=== PATIENT | male | born 1975 | race Caucasian/White ===

== ENCOUNTER 2020-07-18 15:03 | Inpatient (IN) | payer OTHER, MEDICAID, SELFPAY ==
--- NOTE | ~2020-07-18 | XR_ITS ---
EXAMINATION: XR FOOT, LEFT CLINICAL INFORMATION: Trauma. COMPARISON: None TECHNIQUE: AP, lateral, and oblique views of the left foot. FINDINGS: Bone alignment is normal. No fracture or dislocation is seen. There may be mild hallux valgus deformity at the first MTP joint and small osteophytes. There are small osteophytes seen at the navicular cuneiform joint on the lateral view. The joint spaces are otherwise normal. There are calcaneal spurs. XR/XR foot LT 2V IMPRESSION: No fracture seen. Calcaneal spurs and mild degenerative changes.
--- NOTE | ~2020-07-18 | US_ITS ---
EXAMINATION: US RETROPERITONEAL LIMITED (RENAL ONLY) CLINICAL INFORMATION: Renal insufficiency, assess for medical renal disease versus obstruction. COMPARISON: None TECHNIQUE: Ultrasound of the kidneys is performed. Grayscale imaging and color Doppler are performed. Dinkey Dispatcher notes technically challenging exam. Study tailored to ability of patient to cooperate. FINDINGS: RIGHT KIDNEY: 10.0 x 4.4 x 4.8 cm (SAG x AP x TRV). There is no hydronephrosis or caliectasis. No visible renal sinus calculi. Renal parenchymal thickness is normal. There is no renal parenchymal mass. Renal parenchymal echogenicity is within normal. LEFT KIDNEY: 10.7 x 5.8 x 5.3 cm (SAG x AP x TRV). There is no hydronephrosis or caliectasis. Renal parenchymal thickness is likely within normal. There is lobation. The parenchymal echogenicity appears increased and there is a nonobstructing specular echo interpolar region 0.8 cm and a cyst lower pole measuring 1.1 cm. US/US renal BI IMPRESSION: 1. Patient study limitations. No hydronephrosis or caliectasis. 2. Probable increased renal parenchymal density on left. Nonobstructing calculus left interpolar 0.8 cm.
--- NOTE | 2020-07-18 15:47 | HO.PSYADMNOT ---
HPI Chief Complaint: joleen Sources of Information: patient interviewed, chart reviewed and crisis/core team assessment reviewed HPI Subjective Notes: Section 12B Narrative: The patient is a 45 year old male referred from [facility] in [place]; the patient on admission was grossly disorganized, unable to provide details but as per crisis report and ED report, he carries the diagnosis of Bipolar Disorder. He was brought by his brother due to exacerbation of manic symptoms elicited by increased energy, elated mood, increased irritability, pressured speech and no need of sleep. While he was in the ED, he needed to be chemilcally restrained twice in 12 hours with Droperidol and other medications. During the intake interview, the patient stated that he needed to go back with his family, he showed psychomotor agitation and illogical thought process. 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 It was described that the main precipitant was the departure of the patient's father to [place]. He was unable to sign himself so Section 12 was filled. He was put initially on constant observation. 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 Substance History: Unknown. Trauma History: Unknown. Diagnostics EKG EKG: reviewed EKG Comment: From [facility] Meds/Allergies Meds Home Medications Acetaminophen (Acetaminophen 325 Mg Tablet) 650 mg PO Q6H PRN PRN Reason: Headache/Pain Mild Scale (1-3) Al Hydroxide/Mg Hydroxide (Magnesium Hydrox/Alum Hydrox 30 Ml Oral.Susp) 30 ml PO Q6H PRN PRN Reason: Heartburn/Nausea Hydroxyzine HCl (Hydroxyzine Hcl 25 Mg Tablet) 25 mg PO BEDTIME PRN PRN Reason: Anxiety Lorazepam (Lorazepam 1 Mg Tablet) 1 mg PO Q6H PRN PRN Reason: Anxiety Magnesium Hydroxide (Milk Of Magnesia 30 Ml Oral.Susp) 30 ml PO DAILY PRN PRN Reason: Constipation Olanzapine (Olanzapine 10 Mg Tablet) 10 mg PO QID PRN PRN Reason: Psychosis Trazodone HCl (Trazodone Hcl 50 Mg Tablet) 50 mg PO BEDTIME PRN PRN Reason: Insomnia Allergies Allergies Allergy/AdvReac Type Severity Reaction Status Date / Time Unable to Assess Allergy Unverified 07/18/20 15:30 Mental Status Exam Mental Status Exam Patient Appearance: Disheveled (on hospital gowns), Inappropriate and Unkempt Level of Consciousness: Awake, Disoriented and Inappropriate Patient Behavior: Suspicious, Aggressive, Restless, Belligerent and Impulsive Mood Description: Euphoric and Hostile Affect Description: Euphoric and Hostile Patient Cognition Impaired: No Ability to Follow Directions: Poor Speech Pattern: Slurred Hallucinations: None Delusions: Grandiose Thought Process: Incoherent Thought Content: positive for Loose Associations and positive for Thought Blocking Abnormal Motor Activity Signs and Symptoms: Agitation Judgement: Poor Assessment & Plan Assessment & Plan (1) Bipolar 1 disorder, mixed, severe: Status: Acute Code(s): F31.63 - Bipolar disorder, current episode mixed, severe, without psychotic features Assessment and Plan: 1. Admit to M5. 2. Constant observation. 3. Start PRN medications with Zyprexa and Ativan PRN. 4. As per med rec, he is allergic to Abilify but he had Abilify 20 mg prescribed as a mood stabilizer. 5. Get more collateral information. Informed Consent: does not understand (due to joleen and psychosis) Reason for continued inpatient stay Substantial Risk for: harm to self, harm to others, inability to function and rapid decompensation
[2020-07-18] MEDS: OLANZapine ODT 10 MG TAB.RAPDIS TRANSLINGU (16:36)
[2020-07-18] MEDS: LORazepam 1 MG TABLET PO (17:34)
[2020-07-18 18:00] VITALS: BP 129/77; PULSE 101; RESP 18; TEMP 36.2; O2SAT 99
[2020-07-18 18:22] VITALS: BMI 30.2
--- NOTE | 2020-07-18 18:47 | PC.ADMIT ---
45 year old male DX: BiPolar disorder unspecified. Arrived to unit approx 1530, section 12b. Patient referred for admission by Devika. Patient was brought to [facility] ED by his brother due to joleen. Patient declined/refused to sign any paperwork at this time. Patient is disorganized, scattered, tangential with loose associations, speaks in riddles, is difficult to redirect or interrupt. Speech is rapid and pressured. Information has been obtained primarily from crisis evaluation. Patient is A+O x3, person, place, and time. Clean and neat. His brother reports he has not taken bipolar medications for 3 days. Patient has been cleaning in excess and not sleeping. Allergy to Haldol. Medical problems include HTN. Abrasions on R hand, refusing care at this time. CT scan completed at [facility] unremarkable. Tox screen negative. No reported drug or alcohol use. Precipitant related to father letting him know he is moving to [place]. placed on 5 minute checks. See crisis eval for further details, see nursing assessment. Accepted Olanzapine 10 mg Ativan 1mg PO with + effects.
[2020-07-19] MEDS: OLANZapine ODT 10 MG TAB.RAPDIS TRANSLINGU ×3 (02:19→20:57)
[2020-07-19] MEDS: LORazepam 1 MG TABLET PO ×4 (02:19→20:56)
--- NOTE | 2020-07-19 03:19 | PC.NURSE ---
At 0315, Duarte removed his contact lenses and placed them in a blue denture cup with normal saline.
[2020-07-19 03:50] VITALS: BP 124/83; PULSE 92; RESP 16; TEMP 36.4; O2SAT 100
[2020-07-19 07:00] VITALS: BMI 30.2
--- NOTE | 2020-07-19 09:57 | HO.PSYCHPN ---
Subjective Subjective Date of Service: 07/19/20 Reason For Visit: joleen Subjective Notes: Section 12B Interim History: The patient remains grossly manic and disorganized, He neede Zyprexa 10 mg and Ativan PO at night due to increased agitation, some improvement with Zydis 10 mg but still manic. During the interview, he was less irritable but sitll oppositional, intrussive and with flight of ideas. He stated that Abilify 20 mg used to help him. He agreed to re-start Abilify today. Medication Compliance: Intermittent Side effects from medications: No Attending Groups: No Review of Systems Review of Systems Yes all other systems are reviewed and are negative Mental Status Exam Mental Status Exam Patient Appearance: Well Grooomed Patient Orientation: Person and Place Level of Consciousness: Awake and Inappropriate Patient Behavior: Talkative, Hyperactive, Belligerent and Impulsive Mood Description: Euphoric and Labile Affect Description: Hostile and Elated Patient Cognition Impaired: No Ability to Follow Directions: Poor Speech Pattern: Rapid and Inappropriate Memory Description: Remote Impaired Hallucinations: None Delusions: Paranoid Ideation and Grandiose Thought Process: Incoherent and Illogical Thought Content: positive for Loose Associations Abnormal Motor Activity Signs and Symptoms: Agitation Judgement: Poor Diagnostics Vital Signs (24Hr): Vital Signs - 24 hr 07/18/20 18:00 07/19/20 03:50 Temperature 97.2 F 97.5 F Pulse Rate 101 H 92 Respiratory Rate 18 16 Blood Pressure 129/77 124/83 Pulse Oximetry 99 100 Body Mass Index 30.2 Medications Medications Current Medications Generic Name Dose Route Start Last Admin Trade Name Freq PRN Reason Stop Dose Admin Acetaminophen 650 mg 07/18/20 15:30 Acetaminophen 325 Mg Tablet PO Q6H PRN Headache/Pain Mild Scale (1-3) Al Hydroxide/Mg Hydroxide 30 ml 07/18/20 15:30 Magnesium Hydrox/Alum Hydrox 30 Ml Oral.Susp PO Q6H PRN Heartburn/Nausea Hydroxyzine HCl 25 mg 07/18/20 15:30 Hydroxyzine Hcl 25 Mg Tablet PO BEDTIME PRN Anxiety Lorazepam 1 mg 07/18/20 15:33 07/19/20 02:19 Lorazepam 1 Mg Tablet PO 1 mg Q6H PRN Administration Anxiety Magnesium Hydroxide 30 ml 07/18/20 15:30 Milk Of Magnesia 30 Ml Oral.Susp PO DAILY PRN Constipation Olanzapine 10 mg 07/18/20 16:24 07/19/20 02:19 Olanzapine Odt 10 Mg Tab.Rapdis TRANSLINGU 10 mg QID PRN Administration Psychosis Trazodone HCl 50 mg 07/18/20 15:30 Trazodone Hcl 50 Mg Tablet PO BEDTIME PRN Insomnia Allergies Allergies Allergy/AdvReac Type Severity Reaction Status Date / Time Unable to Assess Allergy Unverified 07/18/20 15:30 Assessment & Plan Assessment & Plan (1) Bipolar 1 disorder, mixed, severe: Status: Acute Code(s): F31.63 - Bipolar disorder, current episode mixed, severe, without psychotic features Assessment and Plan: 1. Keep PRN medications as it is now. 2. Start Abilify 10 mg po daily now. 3. Get more collateral. Greater than 50% of the session was spent on counseling and/or coordination of care Reason for contiued inpatient stay Substantial Risk for: harm to self, harm to others, inability to function and rapid decompensation
[2020-07-19] MEDS: ARIPiprazole 10 MG TABLET PO (12:04)
[2020-07-19] MEDS: traZODone HCL 50 MG TABLET PO (20:57)
[2020-07-20] MEDS: traZODone HCL 50 MG TABLET PO (00:01)
[2020-07-20] MEDS: hydrOXYzine HCL 25 MG TABLET PO (00:01)
[2020-07-20] MEDS: OLANZapine ODT 10 MG TAB.RAPDIS TRANSLINGU ×5 (00:45→21:36)
[2020-07-20] MEDS: LORazepam 1 MG TABLET PO ×2 (02:30→07:11)
[2020-07-20] MEDS: OLANZapine 10 MG VIAL IM ×2 (03:11→07:25)
[2020-07-20] MEDS: LORazepam 2 MG/ML VIAL 1 MG IM (03:11)
[2020-07-20] MEDS: diphenhydrAMINE HCL 50 MG/ML VIAL IM (03:11)
--- NOTE | 2020-07-20 04:26 | PC.NURSE ---
At start of shift pt presented as hyperverbal, manic, delusional (father is dying), and engaged in word clanging. Pt refused to leave the nursing station and refused to remain in his room. Received Trazodone 50 mg and Atarax 25 mg at 00:10. While t/w was leaving the medication room the pt attempted to remove the trash can. He then refused to let go and security was called. Pt compliant with security's request to let go of the trash can. Pt continued to be intrusive, attempting to enter the nursing station and invading personal space of staff. Pt redirected to kitchen where he benefitted from staff interaction and ate a snack. Pt continued to pace the hallway and was hyperverbal. Pt received PRN Zyprexa 10 mg PO with no positive effect at 0100. At 0220 pt ran down maynard and attempted to pull fire alarm and began kicking the door. Pt received PO Ativan 1 mg at 0230 but continued to escalate. Pt stated I pulled the alarm so I didn't kick you guys (staff) in the face. Pt began slamming phones after having conversations on the highway safety engineer (phones were off). He engaged in destruction of property in the kitchen while making illogical statements. Pt ignored verbal redirection. Security was again called and pt complied by returning to his room. Once in his room punched araujo and attempted to hit the camera. yacht master provider Dr. Colbert was called and Ativan 1 mg IM, Benadryl 50 mg IM, and Zyprexa 10 mg IM was ordered for agitation and anxiety. Dr. Colbert informed t/w that if patient is willing to receive IM then notto administer as a medication restraint. Pt educated on purpose of IM medication, to treat agitation and anxiety where PO medication had been ineffective, and pt consented to receive IM medication at 0300. IM assessed to have positive effect as evidenced by sitting calmly. Pt continued to present as delusional and hyperverbal. Pt resting in bed with lights off at 0345 but remained restless in bed throughout shift.
[2020-07-20 06:00] VITALS: BP 162/87; PULSE 101; TEMP 36.2
[2020-07-20] MEDS: LORazepam 2 MG/ML VIAL IM (07:25)
--- NOTE | 2020-07-20 09:52 | PC.NURSE ---
patient is not a smoker. does not need nicotine replacement.
--- NOTE | 2020-07-20 10:20 | PC.NURSE ---
AROUND 0700, PT BEGAN TO YELL IN THE HALLWAY AND THROW HIS BLANKETS ON THE FLOOR. PT RAN DOWN THE HALLWAY AND THREW HIS BEVERAGE AT THE RN WHO WAS ENTERING REPORT. SECURITY WAS CALLED. 3 RNS AND CHRISTIANO DIANE ATTEMPTED TO GET THE PT INTO A QUIET ROOM. THE PT WAS YELLING AT STAFF, STATING DO YOU WANT ME TO HIT YOU? PT BEGAN SPEAKING IN A NONSENSICAL MANNER. PT WAS BROUGHT INTO A QUIET ROOM. HE WAS GIVEN PO MEDICATIONS AROUND 0715. THE PT CONTINUED TO YELL AND VERBALLY THREATEN STAFF MEMBERS. SECURITY AND STAFF TRIED TO CALM HIM DOWN. PT CONTINUED TO AMP UP, THROWING HIS GLASSES ON THE FLOOR AND STOMPING ON THEM. PT STATED THAT HE DID NOT WANT TO HAVE TO KILL SOMEONE BECAUSE HE DOESNT LIKE TO BUT WILL . PT WAS GIVEN A MEDICATION RESTRAINT AT 0725. PT WENT INTO HIS ROOM, JUMPING ON THE BED LIKE A MONKEY. APPROXIMATELY 10 MINUTES LATER, PT FELL ASLEEP. PT ALLOWED 2 SETS OF VITAL SIGNS WHICH WERE STABLE.
--- NOTE | 2020-07-20 10:33 | HO.PSYCHPN ---
Subjective Subjective Date of Service: 07/20/20 Reason For Visit: joleen Subjective Notes: Section 12B (We will file for Section 7 and 8) Interim History: The patient has been agitated and he was kicking doors today at 7 amm and before during the night. He needed IM twice and currently he is sleeping. SW reported that her family was contacted, apparently, he responded before to ECT, he is allergic to Haldol and he was before on Abilify with good response. Today, after been chemically restrained, it seems that he broke his foot since he was kicking doors. X-Ray was orderec. Medication Compliance: Intermittent Side effects from medications: No Attending Groups: No Review of Systems Review of Systems Yes Unobtainable due to mental status Mental Status Exam Mental Status Exam Narrative: Unable to fully assess, currently he is sedated sleeping after been chemically restrained due to agitation Diagnostics Vital Signs (24Hr): Vital Signs - 24 hr 07/20/20 06:00 Temperature 97.2 F Pulse Rate 101 H Blood Pressure 162/87 H Body Mass Index 30.2 Medications Medications Current Medications Generic Name Dose Route Start Last Admin Trade Name Freq PRN Reason Stop Dose Admin Acetaminophen 650 mg 07/18/20 15:30 Acetaminophen 325 Mg Tablet PO Q6H PRN Headache/Pain Mild Scale (1-3) Al Hydroxide/Mg Hydroxide 30 ml 07/18/20 15:30 Magnesium Hydrox/Alum Hydrox 30 Ml Oral.Susp PO Q6H PRN Heartburn/Nausea Aripiprazole 15 mg 07/21/20 09:00 Aripiprazole 15 Mg Tablet PO DAILY CONRAD Hydroxyzine HCl 25 mg 07/18/20 15:30 07/20/20 00:01 Hydroxyzine Hcl 25 Mg Tablet PO 25 mg BEDTIME PRN Administration Anxiety Lorazepam 1 mg 07/18/20 15:33 07/20/20 07:11 Lorazepam 1 Mg Tablet PO 1 mg Q6H PRN Administration Anxiety Magnesium Hydroxide 30 ml 07/18/20 15:30 Milk Of Magnesia 30 Ml Oral.Susp PO DAILY PRN Constipation Olanzapine 10 mg 07/18/20 16:24 07/20/20 07:11 Olanzapine Odt 10 Mg Tab.Rapdis TRANSLINGU 10 mg QID PRN Administration Psychosis Trazodone HCl 50 mg 07/18/20 15:30 07/20/20 00:01 Trazodone Hcl 50 Mg Tablet PO 50 mg BEDTIME PRN Administration Insomnia Allergies Allergies Allergy/AdvReac Type Severity Reaction Status Date / Time Unable to Assess Allergy Unverified 07/18/20 15:30 Assessment & Plan Assessment & Plan (1) Bipolar 1 disorder, mixed, severe: Status: Acute Code(s): F31.63 - Bipolar disorder, current episode mixed, severe, without psychotic features Assessment and Plan: 1. Increase Abilify up to 15 mg 2. Get more collateral. 3. Start 7 and 8. I will ask for ECT. Greater than 50% of the session was spent on counseling and/or coordination of care Reason for contiued inpatient stay Substantial Risk for: harm to self, harm to others, inability to function and rapid decompensation
[2020-07-20 18:00] VITALS: BP 134/85; PULSE 87; TEMP 36.6
[2020-07-20] MEDS: traZODone HCL 50 MG TABLET 150 MG PO (21:36)
[2020-07-20] MEDS: chlorproMAZINE HCl 25 MG TABLET 50 MG PO (23:07)
[2020-07-21] MEDS: LORazepam 1 MG TABLET 2 MG PO (00:09)
[2020-07-21] MEDS: chlorproMAZINE HCl 100 MG TABLET PO ×5 (01:33→20:52)
[2020-07-21] MEDS: OLANZapine ODT 10 MG TAB.RAPDIS TRANSLINGU ×4 (09:45→20:52)
[2020-07-21] MEDS: ARIPiprazole 15 MG TABLET PO (09:46)
[2020-07-21] MEDS: LORazepam 1 MG TABLET PO (09:46)
[2020-07-21] MEDS: LORazepam 2 MG/ML VIAL IM (17:58)
[2020-07-21 18:00] VITALS: BP 128/85; PULSE 127; TEMP 37.3
[2020-07-21 18:30] VITALS: BP 160/87; PULSE 103; TEMP 37
[2020-07-21 18:33] VITALS: BP 135/73; PULSE 101; TEMP 37.4
--- NOTE | 2020-07-21 18:44 | P.PNPSI_ITS ---
Subjective Subjective Date of Service: 07/21/20 Reason For Visit: joleen Subjective Notes: Cruz Warning Interim History: Duarte continues to be very challenging. He is hyperverbal, intrusive, disrobes, takes things off the araujo and is in need of constant re-direction. He has been receiving high doses of olanzapine,and chlorpromazine in addition, on top of abilify to which he has responded in the past. Despite this he has not settled very much. In the evening he was tearing things off the araujo, and could not be re- directed. He was increasingly agitated and because of the risk of harm to himself or others, as well as the property destruction, he was in need of a medication restraint. Ativan 2mg was given. Medication Compliance: Intermittent Side effects from medications: No Attending Groups: No Review of Systems Acute medical concerns: No Medical Review of Systems: unchanged Review of Systems Review of Systems Yes all other systems are reviewed and are negative Mental Status Exam Mental Status Exam Patient Appearance: Disheveled Level of Consciousness: Inappropriate and Combative Patient Behavior: Talkative, Hyperactive, Aggressive, Belligerent and Impulsive Mood Description: Elated Affect Description: Labile Ability to Follow Directions: Poor Speech Pattern: Rambling Delusions: Paranoid Ideation and Bizarre Thought Process: Incoherent Thought Content: positive for Flight of Ideas, positive for Perseveration, negative for Suicidal Ideation and negative for Homicidal Ideation Abnormal Motor Activity Signs and Symptoms: Aggression and Agitation Judgement: Poor Diagnostics Vital Signs (24Hr): Vital Signs - 24 hr 07/21/20 18:00 07/21/20 18:30 07/21/20 18:33 Temperature 99.2 F 98.6 F 99.3 F Pulse Rate 127 H 103 H 101 H Blood Pressure 128/85 160/87 H 135/73 Body Mass Index 30.2 Imaging Radiology Impressions: ITS Impressions Foot X-Ray 07/20/20 15:03 IMPRESSION: No fracture seen. Calcaneal spurs and mild degenerative changes. Medications Medications Current Medications Generic Name Dose Route Start Last Admin Trade Name Freq PRN Reason Stop Dose Admin Acetaminophen 650 mg 07/18/20 15:30 Acetaminophen 325 Mg Tablet PO Q6H PRN Headache/Pain Mild Scale (1-3) Al Hydroxide/Mg Hydroxide 30 ml 07/18/20 15:30 Magnesium Hydrox/Alum Hydrox 30 Ml Oral.Susp PO Q6H PRN Heartburn/Nausea Aripiprazole 20 mg 07/22/20 09:00 Aripiprazole 20 Mg Tablet PO DAILY CONRAD Chlorpromazine HCl 100 mg 07/21/20 10:50 07/21/20 16:04 Chlorpromazine Hcl 100 Mg Tablet PO 100 mg RQ4H PRN Administration anxiety/restlessness Hydroxyzine HCl 25 mg 07/18/20 15:30 07/20/20 00:01 Hydroxyzine Hcl 25 Mg Tablet PO 25 mg BEDTIME PRN Administration Anxiety Lorazepam 1 mg 07/21/20 10:47 Lorazepam 1 Mg Tablet PO Q4H PRN Anxiety Magnesium Hydroxide 30 ml 07/18/20 15:30 Milk Of Magnesia 30 Ml Oral.Susp PO DAILY PRN Constipation Olanzapine 10 mg 07/20/20 21:25 07/21/20 16:05 Olanzapine Odt 10 Mg Tab.Rapdis TRANSLINGU 10 mg RQ4H PRN Administration Psychosis Trazodone HCl 150 mg 07/20/20 21:25 07/20/20 21:36 Trazodone Hcl 50 Mg Tablet PO 150 mg BEDTIME PRN Administration Insomnia Allergies Allergies Allergy/AdvReac Type Severity Reaction Status Date / Time Unable to Assess Allergy Unverified 07/18/20 15:30 Assessment & Plan Greater than 50% of the session was spent on counseling and/or coordination of care Individual remains agitated and aggressive. CT treatment plan Ativan 2mg im as a chemical restraint. Patient educated on: diagnosis Informed Consent: does not understand Reason for contiued inpatient stay Substantial Risk for: harm to self, harm to others, inability to function and rapid decompensation
[2020-07-21 18:49] VITALS: BP 142/87; PULSE 102; TEMP 37
[2020-07-21 19:04] VITALS: BP 135/79; PULSE 99; TEMP 37.1
--- NOTE | 2020-07-21 19:10 | PC.NURSE ---
The patient was in his room upon arrival of the change of shift around 14:52. He was on a 1:1 due to manic behavior and self harm. At this time he began to press the alarm in his room repeatedly, banged his fist on the araujo causing there to be a hole in the wall, and slammed his door many times. Pt at one point was visible drinking toilet water, and jumping up and down off his bed. Patient was redirected and began to calm down once security was called. Pt was given 200mg of Thorazine by mouth and 20mg of Zyprexa by mouth which took no effect on the patients behavior. Pt went into his bathroom and started pulling at the toilet paper dang that is connected to the wall and pulled one side out from the wall exposing the nail. Staff continued to intervene and security was up to re-direct him again. Also managed to pull one of the metal restraint clippings out from on the side of the bed. Staff retrieved it from him. Pt was observed running out of his room into another pts room and started throwing there items around.Pt urinated on himself and began to undress himself and threw his urinated pants at staff. Pt was redirected back to his room and security was notified again and were on the unit to assist. Patients nurse was able to get orders from the doctor wildlife control operator Dr. Kaitlynn Colbert at 17:45 for a medication restraint. received 2mg Ativan at 17:58. The hospitalist Dr. Zbigniew Rao was notified via [employer] about the incident and restraint at 17:58. Vitals remained stable. RN fish hatchery supervisor Duran was notified of the event. Dr. Coy was up to see the patient within the hour and was concerned about fungal rashes on legs. Prescribed ointment. Pt was in better behavior control after the medication was administered and sleeping. Will continue to monitor. Vitals initiated at start of restraint and WNL.
[2020-07-21 21:15] VITALS: BP 167/89; PULSE 102; TEMP 37
[2020-07-22] MEDS: hydrOXYzine HCL 25 MG TABLET PO (01:56)
[2020-07-22] MEDS: chlorproMAZINE HCl 100 MG TABLET PO ×4 (01:56→17:25)
[2020-07-22] MEDS: LORazepam 1 MG TABLET 2 MG PO ×3 (01:56→18:20)
[2020-07-22] MEDS: OLANZapine ODT 10 MG TAB.RAPDIS TRANSLINGU ×4 (02:50→17:26)
[2020-07-22] MEDS: traZODone HCL 50 MG TABLET 150 MG PO ×2 (02:50→21:28)
--- NOTE | 2020-07-22 05:20 | PC.NURSE ---
0145: Patient awake presenting with joleen. Slapping wall, pressured speech, disorganized thoughts. Pt received medication at 0200 with little positive effect. 0250: Unable to sleep. restless and agitated. Received medication for sleep and agitation with little positive effect. Pt did slept for very brief periods before thrashing in bed. penal officer and patient observer remained with patient starting at 0200 until end of shift due to aggressiveness and agitation.
[2020-07-22 05:55] VITALS: BP 139/85; PULSE 105; RESP 16; TEMP 36.3
[2020-07-22] MEDS: ARIPiprazole 30 MG TABLET PO (08:10)
[2020-07-22] MEDS: Lithium Carbonate 300 MG CAPSULE PO ×2 (10:30→19:58)
[2020-07-22] MEDS: LORazepam 1 MG TABLET PO ×2 (14:14→19:58)
--- NOTE | 2020-07-22 17:49 | HO.PSYCHPN ---
Subjective Subjective Date of Service: 07/22/20 Reason For Visit: joleen Interim History: Duarte remains agitated, grandiose and bizarre. He is slightly less intrusive today and he is more able to respond to re-direction. He does seem to settle when given ativan. He agreed to the addition of [place] Medication Compliance: Yes Side effects from medications: No Attending Groups: Yes Review of Systems Acute medical concerns: No Medical Review of Systems: unchanged Review of Systems Review of Systems Yes all other systems are reviewed and are negative and Unobtainable due to mental status Mental Status Exam Mental Status Exam Patient Appearance: Disheveled Patient Orientation: Person and Place Level of Consciousness: Inappropriate and Combative Patient Behavior: Talkative, Hyperactive, Aggressive, Belligerent and Impulsive Mood Description: Elated Affect Description: Labile Patient Cognition Impaired: No Ability to Follow Directions: Poor Speech Pattern: Rambling Memory Description: Remote Impaired Hallucinations: None Delusions: Present Thought Process: Incoherent and Illogical Thought Content: positive for Circumstantial, positive for Tangential and positive for Disorganized Abnormal Motor Activity Signs and Symptoms: Aggression Judgement: Poor Diagnostics Vital Signs (24Hr): Vital Signs - 24 hr 07/21/20 18:00 07/21/20 18:30 07/21/20 18:33 Temperature 99.2 F 98.6 F 99.3 F Pulse Rate 127 H 103 H 101 H Respiratory Rate Blood Pressure 128/85 160/87 H 135/73 07/21/20 18:49 07/21/20 19:04 07/21/20 21:15 Temperature 98.6 F 98.7 F 98.6 F Pulse Rate 102 H 99 102 H Respiratory Rate Blood Pressure 142/87 H 135/79 167/89 H 07/22/20 05:55 Temperature 97.3 F Pulse Rate 105 H Respiratory Rate 16 Blood Pressure 139/85 Body Mass Index 30.2 Imaging Radiology Impressions: ITS Impressions Foot X-Ray 07/20/20 15:03 IMPRESSION: No fracture seen. Calcaneal spurs and mild degenerative changes. Medications Medications Current Medications Generic Name Dose Route Start Last Admin Trade Name Freq PRN Reason Stop Dose Admin Acetaminophen 650 mg 07/18/20 15:30 Acetaminophen 325 Mg Tablet PO Q6H PRN Headache/Pain Mild Scale (1-3) Al Hydroxide/Mg Hydroxide 30 ml 07/18/20 15:30 Magnesium Hydrox/Alum Hydrox 30 Ml Oral.Susp PO Q6H PRN Heartburn/Nausea Aripiprazole 30 mg 07/22/20 09:00 07/22/20 08:10 Aripiprazole 30 Mg Tablet PO 30 mg DAILY [facility]RAD Administration Chlorpromazine HCl 100 mg 07/21/20 10:50 07/22/20 17:25 Chlorpromazine Hcl 100 Mg Tablet PO 100 mg RQ4H PRN Administration anxiety/restlessness Clotrimazole 1 appl 07/21/20 21:00 07/22/20 08:10 Clotrimazole 1 % Cream 15 Gm Tube TOPICAL Not Given BID [facility] Protocol Hydroxyzine HCl 25 mg 07/18/20 15:30 07/22/20 01:56 Hydroxyzine Hcl 25 Mg Tablet PO 25 mg BEDTIME PRN Administration Anxiety [place] Carbonate 300 mg 07/22/20 10:25 07/22/20 10:30 [place] Carbonate 300 Mg Capsule PO 300 mg BID CONRAD Administration Lorazepam 2 mg 07/21/20 21:15 07/22/20 06:07 Lorazepam 1 Mg Tablet PO 2 mg Q4H PRN Administration Anxiety Lorazepam 1 mg 07/22/20 15:00 07/22/20 14:14 Lorazepam 1 Mg Tablet PO 1 mg TID CONRAD Administration Magnesium Hydroxide 30 ml 07/18/20 15:30 Milk Of Magnesia 30 Ml Oral.Susp PO DAILY PRN Constipation Olanzapine 10 mg 07/20/20 21:25 07/22/20 17:26 Olanzapine Odt 10 Mg Tab.Rapdis TRANSLINGU 10 mg RQ4H PRN Administration Psychosis Trazodone HCl 150 mg 07/20/20 21:25 07/22/20 02:50 Trazodone Hcl 50 Mg Tablet PO 150 mg BEDTIME PRN Administration Insomnia Allergies Allergies Allergy/AdvReac Type Severity Reaction Status Date / Time haloperidol [From Haldol] Allergy Unknown Verified 07/22/20 03:38 Assessment & Plan Assessment & Plan (1) Bipolar 1 disorder, mixed, severe: Status: Acute Code(s): F31.63 - Bipolar disorder, current episode mixed, severe, without psychotic features Assessment and Plan: 1. Increase Abilify up to 15 mg 2. Add [place] 3. Get more collateral. Greater than 50% of the session was spent on counseling and/or coordination of care Reason for contiued inpatient stay Substantial Risk for: rapid decompensation
[2020-07-22 18:00] VITALS: RESP 18
[2020-07-23] MEDS: hydrOXYzine HCL 25 MG TABLET PO (02:57)
[2020-07-23] MEDS: LORazepam 1 MG TABLET 2 MG PO ×2 (02:57→12:37)
[2020-07-23] MEDS: chlorproMAZINE HCl 100 MG TABLET PO ×3 (02:57→12:37)
[2020-07-23] MEDS: OLANZapine ODT 10 MG TAB.RAPDIS TRANSLINGU ×3 (06:47→14:49)
[2020-07-23] MEDS: ARIPiprazole 30 MG TABLET PO (08:21)
[2020-07-23] MEDS: LORazepam 1 MG TABLET PO ×3 (08:22→21:41)
[2020-07-23] MEDS: Lithium Carbonate 300 MG CAPSULE PO ×2 (08:22→21:41)
--- NOTE | 2020-07-23 09:42 | P.PNPSI_ITS ---
Subjective Subjective Date of Service: 07/23/20 Reason For Visit: joleen Subjective Notes: Section 12B Interim History: The patient has been agitated, disorganized and grossly manic during the week, he needed to be chemically restrained on Thursday and he was started on [place]. Family reported that in the past he was on [place] as a teenager but it was unclear why they stopped. Abilify has been increased up to 30 mg. So far, he remains grossly manic and psychotic on close observation, unable to take informed decisions. We are filing for Section 7 and 8 and we will start ECT. Medication Compliance: Intermittent Side effects from medications: No Attending Groups: No Review of Systems Review of Systems Yes all other systems are reviewed and are negative Mental Status Exam Mental Status Exam Patient Appearance: Disheveled Patient Orientation: Person and Place Level of Consciousness: Drowsy Patient Behavior: Suspicious, Aggressive and Poor Eye Contact Mood Description: Suspicious and Apprehensive Affect Description: Suspicious, Withdrawn and Apprehensive Patient Cognition Impaired: No Ability to Follow Directions: Poor Speech Pattern: Slurred Hallucinations: None Delusions: Paranoid Ideation and Grandiose Thought Process: Incoherent Thought Content: positive for Disoriented Abnormal Motor Activity Signs and Symptoms: Hyperactivity and Restlessness Judgement: Poor Diagnostics Vital Signs (24Hr): Vital Signs - 24 hr 07/22/20 18:00 Respiratory Rate 18 Body Mass Index 30.2 Imaging Radiology Impressions: ITS Impressions Foot X-Ray 07/20/20 15:03 IMPRESSION: No fracture seen. Calcaneal spurs and mild degenerative changes. Medications Medications Current Medications Generic Name Dose Route Start Last Admin Trade Name Freq PRN Reason Stop Dose Admin Acetaminophen 650 mg 07/18/20 15:30 Acetaminophen 325 Mg Tablet PO Q6H PRN Headache/Pain Mild Scale (1-3) Al Hydroxide/Mg Hydroxide 30 ml 07/18/20 15:30 Magnesium Hydrox/Alum Hydrox 30 Ml Oral.Susp PO Q6H PRN Heartburn/Nausea Aripiprazole 30 mg 07/22/20 09:00 07/23/20 08:21 Aripiprazole 30 Mg Tablet PO 30 mg DAILY [facility]RAD Administration Chlorpromazine HCl 100 mg 07/21/20 10:50 07/23/20 08:21 Chlorpromazine Hcl 100 Mg Tablet PO 100 mg RQ4H PRN Administration anxiety/restlessness Clotrimazole 1 appl 07/21/20 21:00 07/23/20 09:05 Clotrimazole 1 % Cream 15 Gm Tube TOPICAL Not Given BID [facility] Protocol Hydroxyzine HCl 25 mg 07/18/20 15:30 07/23/20 02:57 Hydroxyzine Hcl 25 Mg Tablet PO 25 mg BEDTIME PRN Administration Anxiety [place] Carbonate 300 mg 07/22/20 10:25 07/23/20 08:22 [place] Carbonate 300 Mg Capsule PO 300 mg BID CONRAD Administration Lorazepam 2 mg 07/21/20 21:15 07/23/20 02:57 Lorazepam 1 Mg Tablet PO 2 mg Q4H PRN Administration Anxiety Lorazepam 1 mg 07/22/20 15:00 07/23/20 08:22 Lorazepam 1 Mg Tablet PO 1 mg TID CONRAD Administration Magnesium Hydroxide 30 ml 07/18/20 15:30 Milk Of Magnesia 30 Ml Oral.Susp PO DAILY PRN Constipation Olanzapine 10 mg 07/20/20 21:25 07/23/20 06:47 Olanzapine Odt 10 Mg Tab.Rapdis TRANSLINGU 10 mg RQ4H PRN Administration Psychosis Trazodone HCl 150 mg 07/20/20 21:25 07/22/20 21:28 Trazodone Hcl 50 Mg Tablet PO 150 mg BEDTIME PRN Administration Insomnia Allergies Allergies Allergy/AdvReac Type Severity Reaction Status Date / Time haloperidol [From Haldol] Allergy Unknown Verified 07/22/20 03:38 Assessment & Plan Assessment & Plan (1) Bipolar 1 disorder, mixed, severe: Status: Acute Code(s): F31.63 - Bipolar disorder, current episode mixed, severe, without psychotic features Assessment and Plan: 1. Continue with Abilify 30 mg and Ativan. 2. Order bloodwork with TSH, LITH, Comprehensive panel. 3. Continue on close observation. 4. Filing for court. Greater than 50% of the session was spent on counseling and/or coordination of care Reason for contiued inpatient stay Substantial Risk for: harm to self, harm to others and inability to function
[2020-07-23 18:00] VITALS: RESP 18
[2020-07-23] MEDS: traZODone HCL 50 MG TABLET 150 MG PO (21:42)
[2020-07-23 21:58] VITALS: BP 171/87; PULSE 95; TEMP 36.3
[2020-07-23] MEDS: Clotrimazole 1 % Cream 15 GM TUBE 1 APPL TOPICAL (22:24)
[2020-07-24] MEDS: chlorproMAZINE HCl 100 MG TABLET PO ×4 (05:03→18:47)
[2020-07-24] MEDS: LORazepam 1 MG TABLET 2 MG PO ×3 (05:04→18:47)
[2020-07-24 05:40] VITALS: BP 128/86; PULSE 126; RESP 18; TEMP 36.2; O2SAT 97
[2020-07-24] MEDS: ARIPiprazole 30 MG TABLET PO (08:32)
[2020-07-24] MEDS: OLANZapine ODT 10 MG TAB.RAPDIS TRANSLINGU ×3 (08:32→18:47)
[2020-07-24] MEDS: Lithium Carbonate 300 MG CAPSULE PO ×2 (08:32→20:32)
[2020-07-24] MEDS: LORazepam 1 MG TABLET PO (08:32)
[2020-07-24] MEDS: Clotrimazole 1 % Cream 15 GM TUBE 1 APPL TOPICAL ×2 (08:33→20:32)
[2020-07-24 09:07] LABS: Lithium 0.36 mmol/L (0.60-1.20)
[2020-07-24 09:12] LABS: Alanine Aminotransferase 59 U/L (0-40); Albumin Level 4.4 g/dL (3.5-5.0); Alkaline Phosphatase 48 U/L (39-117); Anion Gap 18 (12-20); Aspartate Amino Transferase 45 U/L (5-37); Bilirubin Total 0.9 mg/dL (0.0-1.0); Blood Urea Nitrogen 17 mg/dL (9-16); Calcium 9.3 mg/dL (8.4-10.2); Carbon Dioxide 23 mmol/L (22-29); Chloride 108 mmol/L (96-108); Creatinine Clr Calc Pharmacy 73.9; Estimated Glomerular Filt Rate 46; Glucose Fasting 93 mg/dL (60-99); Sodium 145 mmol/L (135-145); Total Protein 7.3 g/dL (6.5-8.0)
[2020-07-24 09:22] LABS: Thyroid Stimulating Hormone 0.95 uIU/mL (0.32-4.0)
--- NOTE | 2020-07-24 10:52 | HO.PSYCHPN ---
Subjective Subjective Date of Service: 07/24/20 Reason For Visit: joleen Interim History: The patient remains grossly psychotic and disorganized, he was incontinent of urine x2 yesterday. He cut accidentally his finger superficially and there was blood all over his room. He is sexually disinhibeted, disrobbing himself all the time. Needed several PRNs. We will file for SEction 7 and 8, so far we have a hearing on 07/26 but we will try to do it today in an emergency basis. Medication Compliance: Intermittent Side effects from medications: No Attending Groups: No Review of Systems Review of Systems Yes Unobtainable due to mental status Mental Status Exam Mental Status Exam Patient Appearance: Disheveled and Inappropriate Patient Orientation: Person and Place Level of Consciousness: Drowsy and Sedated Patient Behavior: Hypersexual, Aggressive, Restless, Belligerent and Verbal Threats Mood Description: Hostile and Labile Affect Description: Blunted Patient Cognition Impaired: No Ability to Follow Directions: Poor Speech Pattern: Slurred Hallucinations: None Delusions: Grandiose and Ideas of Reference Thought Process: Incoherent and Illogical Thought Content: positive for Flight of Ideas and positive for Neologisms Judgement: Poor Diagnostics Vital Signs (24Hr): Vital Signs - 24 hr 07/23/20 18:00 07/23/20 21:58 07/24/20 05:40 Temperature 97.4 F 97.1 F Pulse Rate 95 126 H Respiratory Rate 18 18 Blood Pressure 171/87 H 128/86 Pulse Oximetry 97 Body Mass Index 30.2 Labs Results: 07/24/20 08:19 Labs: Laboratory Results - last 48 hr 07/24/20 07/24/20 08:19 08:19 Sodium 145 Potassium 4.0 Chloride 108 Carbon Dioxide 23 Anion Gap 18 BUN 17 H Creatinine 1.63 H Estim Creat Clear Calc 73.9 Estimated GFR 46 Fasting Glucose 93 Calcium 9.3 Total Bilirubin 0.9 AST 45 H ALT 59 H Alkaline Phosphatase 48 Total Protein 7.3 Albumin 4.4 TSH 0.95 Tomas De Castro 0.36 L Imaging Radiology Impressions: ITS Impressions Foot X-Ray 07/20/20 15:03 IMPRESSION: No fracture seen. Calcaneal spurs and mild degenerative changes. Medications Medications Current Medications Generic Name Dose Route Start Last Admin Trade Name Freq PRN Reason Stop Dose Admin Acetaminophen 650 mg 07/18/20 15:30 Acetaminophen 325 Mg Tablet PO Q6H PRN Headache/Pain Mild Scale (1-3) Al Hydroxide/Mg Hydroxide 30 ml 07/18/20 15:30 Magnesium Hydrox/Alum Hydrox 30 Ml Oral.Susp PO Q6H PRN Heartburn/Nausea Aripiprazole 30 mg 07/22/20 09:00 07/24/20 08:32 Aripiprazole 30 Mg Tablet PO 30 mg DAILY CONRAD Administration Chlorpromazine HCl 100 mg 07/21/20 10:50 07/24/20 08:32 Chlorpromazine Hcl 100 Mg Tablet PO 100 mg RQ4H PRN Administration anxiety/restlessness Clotrimazole 1 appl 07/21/20 21:00 07/24/20 08:33 Clotrimazole 1 % Cream 15 Gm Tube TOPICAL 1 appl BID CONRAD Administration Protocol Hydroxyzine HCl 25 mg 07/18/20 15:30 07/23/20 02:57 Hydroxyzine Hcl 25 Mg Tablet PO 25 mg BEDTIME PRN Administration Anxiety Tomas De Castro Carbonate 300 mg 07/22/20 10:25 07/24/20 08:32 Tomas De Castro Carbonate 300 Mg Capsule PO 300 mg BID CONRAD Administration Lorazepam 2 mg 07/21/20 21:15 07/24/20 05:04 Lorazepam 1 Mg Tablet PO 2 mg Q4H PRN Administration Anxiety Lorazepam 1 mg 07/22/20 15:00 07/24/20 08:32 Lorazepam 1 Mg Tablet PO 1 mg TID CONRAD Administration Magnesium Hydroxide 30 ml 07/18/20 15:30 Milk Of Magnesia 30 Ml Oral.Susp PO DAILY PRN Constipation Olanzapine 10 mg 07/20/20 21:25 07/24/20 08:32 Olanzapine Odt 10 Mg Tab.Rapdis TRANSLINGU 10 mg RQ4H PRN Administration Psychosis Trazodone HCl 150 mg 07/20/20 21:25 07/23/20 21:42 Trazodone Hcl 50 Mg Tablet PO 150 mg BEDTIME PRN Administration Insomnia Allergies Allergies Allergy/AdvReac Type Severity Reaction Status Date / Time haloperidol [From Haldol] Allergy Unknown Verified 07/22/20 03:38 Assessment & Plan Assessment & Plan (1) Bipolar 1 disorder, mixed, severe: Status: Acute Code(s): F31.63 - Bipolar disorder, current episode mixed, severe, without psychotic features Assessment and Plan: 1. Stop Ativan scheduled since it seems that he is more disinhibited with benzodiazepines. 2. Get new BMP, it showed today slight increase of CR and BUN. 3. Rest the same Greater than 50% of the session was spent on counseling and/or coordination of care Reason for contiued inpatient stay Substantial Risk for: harm to self, harm to others, inability to function, rapid decompensation and med/psych decompensation
[2020-07-24 18:00] VITALS: BP 129/78; PULSE 88; RESP 18; TEMP 36.7; O2SAT 90
[2020-07-24] MEDS: traZODone HCL 50 MG TABLET 150 MG PO (21:18)
[2020-07-24] MEDS: hydrOXYzine HCL 25 MG TABLET PO (21:18)
--- NOTE | 2020-07-25 01:11 | PC.NURSE ---
f/u on medication restraints administered. Pt is disorganized and unable to process events leading to hospitalization and/or medication restraints utilized. Safety tool updated after interactions with patient and documentation review.
[2020-07-25] MEDS: hydrOXYzine HCL 25 MG TABLET PO (03:27)
[2020-07-25] MEDS: LORazepam 1 MG TABLET 2 MG PO ×2 (03:27→15:51)
[2020-07-25] MEDS: chlorproMAZINE HCl 100 MG TABLET PO ×3 (03:27→22:53)
[2020-07-25] MEDS: ARIPiprazole 30 MG TABLET PO (08:10)
[2020-07-25] MEDS: Lithium Carbonate 300 MG CAPSULE PO (08:10)
[2020-07-25] MEDS: OLANZapine ODT 10 MG TAB.RAPDIS TRANSLINGU (08:10)
[2020-07-25 08:48] LABS: Anion Gap 14 (12-20); Blood Urea Nitrogen 15 mg/dL (9-16); Calcium 9.7 mg/dL (8.4-10.2); Carbon Dioxide 27 mmol/L (22-29); Chloride 111 mmol/L (96-108); Creatinine Clr Calc Pharmacy 72.2; Estimated Glomerular Filt Rate 45; Glucose Random 91 mg/dL (60-115); Sodium 148 mmol/L (135-145)
--- NOTE | 2020-07-25 09:51 | P.PNPSI_ITS ---
Subjective Subjective Date of Service: 07/25/20 Reason For Visit: joleen Subjective Notes: Section 7 (applied for 7 and 8) and Section 8 Interim History: The patient has been extremely disorganized, he urinated in the corner of the room, agitated at times and he needed to be chemically restrained again at night. We repeated bloodwork since Cr was high, and again it was high so I discontinued [place] and started on TEgretol. Review of Systems Review of Systems Yes Unobtainable due to mental status Mental Status Exam Mental Status Exam Patient Appearance: Disheveled, Inappropriate and Bizarre Patient Orientation: Person Level of Consciousness: Awake and Disoriented Patient Behavior: Posturing and Restless Mood Description: Hostile and Labile Affect Description: Hostile, Angry and Nervous Patient Cognition Impaired: No Ability to Follow Directions: Poor Speech Pattern: Slurred Delusions: Paranoid Ideation and Grandiose Thought Process: Disoriented and Incoherent Thought Content: positive for Flight of Ideas and positive for Neologisms Abnormal Motor Activity Signs and Symptoms: Aggression, Agitation and Hyperactivity Judgement: Poor Judgement and Insight: Insight poor Diagnostics Vital Signs (24Hr): Vital Signs - 24 hr 07/24/20 18:00 Temperature 98.0 F Pulse Rate 88 Respiratory Rate 18 Blood Pressure 129/78 Pulse Oximetry 90 L Body Mass Index 30.2 Labs Results: 07/25/20 08:11 Labs: Laboratory Results - last 48 hr 07/24/20 07/24/20 07/25/20 08:19 08:19 08:11 Sodium 145 148 H Potassium 4.0 4.0 Chloride 108 111 H Carbon Dioxide 23 27 Anion Gap 18 14 BUN 17 H 15 Creatinine 1.63 H 1.67 H Estim Creat Clear Calc 73.9 72.2 Estimated GFR 46 45 Random Glucose 91 Fasting Glucose 93 Calcium 9.3 9.7 Total Bilirubin 0.9 AST 45 H ALT 59 H Alkaline Phosphatase 48 Total Protein 7.3 Albumin 4.4 TSH 0.95 [place] 0.36 L Imaging Radiology Impressions: ITS Impressions Foot X-Ray 07/20/20 15:03 IMPRESSION: No fracture seen. Calcaneal spurs and mild degenerative changes. Medications Medications Current Medications Generic Name Dose Route Start Last Admin Trade Name Freq PRN Reason Stop Dose Admin Acetaminophen 650 mg 07/18/20 15:30 Acetaminophen 325 Mg Tablet PO Q6H PRN Headache/Pain Mild Scale (1-3) Al Hydroxide/Mg Hydroxide 30 ml 07/18/20 15:30 Magnesium Hydrox/Alum Hydrox 30 Ml Oral.Susp PO Q6H PRN Heartburn/Nausea Aripiprazole 30 mg 07/22/20 09:00 07/25/20 08:10 Aripiprazole 30 Mg Tablet PO 30 mg DAILY CONRAD Administration Carbamazepine 100 mg 07/25/20 15:00 Carbamazepine 100 Mg Tab.Chew PO TID [facility] Chlorpromazine HCl 100 mg 07/21/20 10:50 07/25/20 03:27 Chlorpromazine Hcl 100 Mg Tablet PO 100 mg RQ4H PRN Administration anxiety/restlessness Clotrimazole 1 appl 07/21/20 21:00 07/25/20 08:16 Clotrimazole 1 % Cream 15 Gm Tube TOPICAL Not Given BID [facility] Protocol Hydroxyzine HCl 25 mg 07/18/20 15:30 07/25/20 03:27 Hydroxyzine Hcl 25 Mg Tablet PO 25 mg BEDTIME PRN Administration Anxiety Lorazepam 2 mg 07/21/20 21:15 07/25/20 03:27 Lorazepam 1 Mg Tablet PO 2 mg Q4H PRN Administration Anxiety Magnesium Hydroxide 30 ml 07/18/20 15:30 Milk Of Magnesia 30 Ml Oral.Susp PO DAILY PRN Constipation Olanzapine 10 mg 07/20/20 21:25 07/25/20 08:10 Olanzapine Odt 10 Mg Tab.Rapdis TRANSLINGU 10 mg RQ4H PRN Administration Psychosis Trazodone HCl 150 mg 07/20/20 21:25 07/24/20 21:18 Trazodone Hcl 50 Mg Tablet PO 150 mg BEDTIME PRN Administration Insomnia Allergies Allergies Allergy/AdvReac Type Severity Reaction Status Date / Time haloperidol [From Haldol] Allergy Unknown Verified 07/22/20 03:38 Assessment & Plan Assessment & Plan (1) Bipolar 1 disorder, mixed, severe: Status: Acute Code(s): F31.63 - Bipolar disorder, current episode mixed, severe, without psychotic features Assessment and Plan: 1. D/C [place] 2. Start Tegretol to 100 mg po tid 3. REst the same. 4. Tomorrow we have a hearing court for 7 and 8 Greater than 50% of the session was spent on counseling and/or coordination of care Reason for contiued inpatient stay Substantial Risk for: harm to self, harm to others, inability to function and rapid decompensation
[2020-07-25 11:37] VITALS: BP 123/67; PULSE 130; RESP 16; TEMP 36.6; O2SAT 96
[2020-07-25] MEDS: carBAMazepine 100 MG TAB.CHEW PO ×2 (15:15→22:54)
[2020-07-25] MEDS: traZODone HCL 50 MG TABLET 150 MG PO (22:54)
[2020-07-25] MEDS: Clotrimazole 1 % Cream 15 GM TUBE 1 APPL TOPICAL (23:26)
[2020-07-26] MEDS: LORazepam 1 MG TABLET 2 MG PO ×3 (00:05→18:09)
[2020-07-26] MEDS: hydrOXYzine HCL 25 MG TABLET PO (00:05)
[2020-07-26] MEDS: OLANZapine ODT 10 MG TAB.RAPDIS TRANSLINGU ×3 (02:02→14:15)
[2020-07-26] MEDS: ARIPiprazole 30 MG TABLET PO (08:19)
[2020-07-26] MEDS: carBAMazepine 100 MG TAB.CHEW PO ×2 (08:19→14:15)
[2020-07-26] MEDS: chlorproMAZINE HCl 100 MG TABLET PO ×2 (08:19→14:15)
--- NOTE | 2020-07-26 09:38 | HO.PSYCHPN ---
Subjective Subjective Date of Service: 07/26/20 Reason For Visit: joleen Subjective Notes: Section 7 and Section 8 Interim History: The patient has been grossly disorganized, desinhibit and posturing. He has disrobbed himself. He looks confused, on delirium. He tried to pull out the tiles of the ceiling. Today we have section 7 and 8 scheduled. Review of Systems Review of Systems Yes Unobtainable due to mental status Mental Status Exam Mental Status Exam Patient Appearance: Disheveled Level of Consciousness: Awake and Disoriented Patient Behavior: Posturing Mood Description: Withdrawn and Labile Affect Description: Hostile Patient Cognition Impaired: Yes Ability to Follow Directions: Poor Speech Pattern: Slurred Delusions: Paranoid Ideation and Grandiose Thought Process: Incoherent Thought Content: positive for Tangential Judgement: Poor Diagnostics Vital Signs (24Hr): Vital Signs - 24 hr 07/25/20 11:37 Temperature 97.8 F Pulse Rate 130 H Respiratory Rate 16 Blood Pressure 123/67 Pulse Oximetry 96 Body Mass Index 30.2 Labs Results: 07/25/20 08:11 Labs: Laboratory Results - last 48 hr 07/25/20 08:11 Sodium 148 H Potassium 4.0 Chloride 111 H Carbon Dioxide 27 Anion Gap 14 BUN 15 Creatinine 1.67 H Estim Creat Clear Calc 72.2 Estimated GFR 45 Random Glucose 91 Calcium 9.7 Imaging Radiology Impressions: ITS Impressions Foot X-Ray 07/20/20 15:03 IMPRESSION: No fracture seen. Calcaneal spurs and mild degenerative changes. Medications Medications Current Medications Generic Name Dose Route Start Last Admin Trade Name Freq PRN Reason Stop Dose Admin Acetaminophen 650 mg 07/18/20 15:30 Acetaminophen 325 Mg Tablet PO Q6H PRN Headache/Pain Mild Scale (1-3) Al Hydroxide/Mg Hydroxide 30 ml 07/18/20 15:30 Magnesium Hydrox/Alum Hydrox 30 Ml Oral.Susp PO Q6H PRN Heartburn/Nausea Aripiprazole 30 mg 07/22/20 09:00 07/26/20 08:19 Aripiprazole 30 Mg Tablet PO 30 mg DAILY CONRAD Administration Carbamazepine 100 mg 07/25/20 15:00 07/26/20 08:19 Carbamazepine 100 Mg Tab.Chew PO 100 mg TID CONRAD Administration Chlorpromazine HCl 100 mg 07/21/20 10:50 07/26/20 08:19 Chlorpromazine Hcl 100 Mg Tablet PO 100 mg RQ4H PRN Administration anxiety/restlessness Clotrimazole 1 appl 07/21/20 21:00 07/26/20 09:08 Clotrimazole 1 % Cream 15 Gm Tube TOPICAL Not Given BID [facility] Protocol Hydroxyzine HCl 25 mg 07/18/20 15:30 07/26/20 00:05 Hydroxyzine Hcl 25 Mg Tablet PO 25 mg BEDTIME PRN Administration Anxiety Magnesium Hydroxide 30 ml 07/18/20 15:30 Milk Of Magnesia 30 Ml Oral.Susp PO DAILY PRN Constipation Olanzapine 10 mg 07/20/20 21:25 07/26/20 08:19 Olanzapine Odt 10 Mg Tab.Rapdis TRANSLINGU 10 mg RQ4H PRN Administration Psychosis Trazodone HCl 150 mg 07/20/20 21:25 07/25/20 22:54 Trazodone Hcl 50 Mg Tablet PO 150 mg BEDTIME PRN Administration Insomnia Allergies Allergies Allergy/AdvReac Type Severity Reaction Status Date / Time haloperidol [From Haldol] Allergy Unknown Verified 07/22/20 03:38 Assessment & Plan Assessment & Plan (1) Bipolar 1 disorder, mixed, severe: Status: Acute Code(s): F31.63 - Bipolar disorder, current episode mixed, severe, without psychotic features Assessment and Plan: Continue Abilify 30 mg and Tegretol started yesterday. D/C PRN Ativan Court today. Greater than 50% of the session was spent on counseling and/or coordination of care Reason for contiued inpatient stay Substantial Risk for: harm to self, harm to others, inability to function and rapid decompensation
--- NOTE | 2020-07-26 17:43 | ECG_ITS ---
Test Reason : preop ect Blood Pressure : / mmHG Vent. Rate : 105 BPM Atrial Rate : 105 BPM P-R Int : 142 ms QRS Dur : 088 ms QT Int : 354 ms P-R-T Axes : 057 013 011 degrees QTc Int : 467 ms Sinus tachycardia Possible Left atrial enlargement Borderline ECG No previous ECGs available Referred By: Adis James Electronically Signed By:FEROZ DANIEL
[2020-07-26 19:38] VITALS: BP 131/84; PULSE 120; TEMP 36.8
--- NOTE | 2020-07-26 20:00 | PC.NURSE ---
EKG-patient was administered oral ativan. Ativan allowed patient to be calm enough to tolerate EKG. Hospitalist notified of need for clearance.
--- NOTE | 2020-07-26 22:04 | PM.IMHP ---
History of Present Illness Date of Service: 07/26/20 Chief Complaint: ect clearance This is a 45-year-old male with past medical history of bipolar disorder who is currently admitted to [facility] for psychotic breakdown in the setting of his bipolar disorder. We are asked in consultation to see patient for medical clearance for ECT. Patient is psychotic at this time, pacing back and forth in the room, has behavioral aggression and I was unable to interview him or obtain any history from him. This medical evaluation is based on his past medical history, labs, as well as EKG and other information together from EMR. Patient has had ECT at a different institution in the past with no complications. I am unable to obtain any review of system. Labs from 07/25 show a sodium of 148, chloride of 111, BUN of 15, creatinine of 1.67, AST of 45 ALT of 59. Vitals are significant for a BP of 131/84, and temperature of 98.3? satting 96% on room air PMFSH Social History Household Members: Spouse Household Members Other:: Housing: Unknown / Unable to assess Do you presently have visiting nurse or other home services: No Smoking Status: Unknown if ever smoked Smoked in Last 30 Days: No Patient Interested in Nicotine Replacement: No Patient Given Instructions on How to Stop Smoking: No (N/A) Second Hand Smoke Exposure: No Use of substances other than those prescribed or required for medical reasons: No Substance Use Type Other:: No history of substance use per crisis evaluation Last Used Substance: Unknown Last Used Substance Other:: No substance use reported per crisis evaluation Currently Displaying Signs/Symptoms of Drug Intoxication Withdrawal: No Any prior treatment program specific to substance use: No Have you been hit, kicked, punched, or otherwise hurt by someone within the past year? If so, by whom?: No Do you feel safe in your current relationship?: Yes Is there a partner from a previous relationship who is making you feel unsafe now?: No Are you made to feel afraid or neglected: No Cultural Healthcare Practices: Hoahaoism Advance Directives: No Advance Directives Information Provided: No Advance Directives on File: No Do you have thoughts of harming others: None Do you have a plan to hurt others: No Plan Recently lost weight without trying: No service: No Sexual orientation: Straight/Heterosexual Meds Allergies Allergy/AdvReac Type Severity Reaction Status Date / Time haloperidol [From Haldol] Allergy Unknown Verified 07/22/20 03:38 Active Medications: Current Medications Generic Name Dose Route Start Last Admin Trade Name Freq PRN Reason Stop Dose Admin Acetaminophen 650 mg 07/18/20 15:30 Acetaminophen 325 Mg Tablet PO Q6H PRN Headache/Pain Mild Scale (1-3) Al Hydroxide/Mg Hydroxide 30 ml 07/18/20 15:30 Magnesium Hydrox/Alum Hydrox 30 Ml Oral.Susp PO Q6H PRN Heartburn/Nausea Aripiprazole 30 mg 07/22/20 09:00 07/26/20 08:19 Aripiprazole 30 Mg Tablet PO 30 mg DAILY CONRAD Administration Carbamazepine 100 mg 07/25/20 15:00 07/26/20 19:39 Carbamazepine 100 Mg Tab.Chew PO Not Given TID [facility] Chlorpromazine HCl 100 mg 07/21/20 10:50 07/26/20 14:15 Chlorpromazine Hcl 100 Mg Tablet PO 100 mg RQ4H PRN Administration anxiety/restlessness Clotrimazole 1 appl 07/21/20 21:00 07/26/20 09:08 Clotrimazole 1 % Cream 15 Gm Tube TOPICAL Not Given BID [facility] Protocol Hydroxyzine HCl 25 mg 07/18/20 15:30 07/26/20 00:05 Hydroxyzine Hcl 25 Mg Tablet PO 25 mg BEDTIME PRN Administration Anxiety Lorazepam 2 mg 07/26/20 17:41 07/26/20 18:09 Lorazepam 1 Mg Tablet PO 2 mg Q4H PRN Administration Psychosis/severe agitation Magnesium Hydroxide 30 ml 07/18/20 15:30 Milk Of Magnesia 30 Ml Oral.Susp PO DAILY PRN Constipation Olanzapine 10 mg 07/20/20 21:25 07/26/20 14:15 Olanzapine Odt 10 Mg Tab.Rapdis TRANSLINGU 10 mg RQ4H PRN Administration Psychosis Trazodone HCl 150 mg 07/20/20 21:25 07/25/20 22:54 Trazodone Hcl 50 Mg Tablet PO 150 mg BEDTIME PRN Administration Insomnia Physical Exam Vital Signs and Narrative: Vital Signs: Last Vital Signs Temp 98.3 F 07/26/20 19:38 Pulse 120 H 07/26/20 19:38 Resp 16 07/25/20 11:37 BP 131/84 07/26/20 19:38 Pulse Ox 96 07/25/20 11:37 Body Mass Index 30.2 Results Labs CBC and Chem 7: 07/25/20 08:11
[2020-07-26] MEDS: OLANZapine ODT 10 MG TAB.RAPDIS 20 MG TRANSLINGU (22:12)
[2020-07-27] VITALS (14 sets, daily range): BP systolic 125–154; BP diastolic 75–95; PULSE 82–109; RESP 12–20; TEMP 36.4–37.6; O2SAT 91–98
--- NOTE | 2020-07-27 06:06 | PM.EVENT ---
Event Note Date of Service: 07/27/20 Event Note: Attempted to see patient but patient was unstable, pacing back and forth, unable to get any history from him, unable to conduct physical exam is patient is also showing aggressive behavior. Will attempt in a.m.
[2020-07-27] MEDS: chlorproMAZINE HCl 100 MG TABLET PO ×3 (06:15→23:18)
[2020-07-27] MEDS: OLANZapine ODT 10 MG TAB.RAPDIS TRANSLINGU ×2 (06:15→16:36)
[2020-07-27 08:31] LABS: MANUAL DIFF FLAG NO
[2020-07-27 08:36] LABS: Basophils Percent Auto 0.3 % (0-2); Eosinophils Absolute Auto 0.5 X10*3/uL (0.0-0.4); Eosinophils Percent Auto 8.5 % (0-4); Hematocrit 35.5 % (42-52); Imm Gran Abs Auto 0.02 X10*3/uL (0.00-0.03); Imm Gran Pct Auto 0.3 % (0.0-0.4); Lymphocytes Absolute Auto 1.1 X10*3/uL (1.2-4.9); Lymphocytes Percent Auto 18.4 % (20-40); Mean Corpuscular HGB Conc 33.8 g/dl (31.0-36.0); Mean Corpuscular Hemoglobin 30.7 pg (27.0-33.0); Mean Corpuscular Volume 90.8 fL (80-98); Mean Platelet Volume 9.4 fL (9.4-12.4); Monocytes Absolute Auto 0.6 X10*3/uL (0.1-1.2); Monocytes Percent Auto 10.9 % (2-11); Neutrophils Absolute Auto 3.5 X10*3/uL (2.0-8.3); Neutrophils Percent Auto 61.6 % (45-73); Platelet Count 204 X10*3/uL (160-400); Red Blood Count 3.91 X10*6/uL (4.60-5.80); Red Cell Distribution Width 13.5 % (11.0-16.0); White Blood Count 5.8 X10*3/uL (4.8-10.8)
[2020-07-27 09:19] LABS: Anion Gap 14 (12-20); Blood Urea Nitrogen 21 mg/dL (9-16); Calcium 8.8 mg/dL (8.4-10.2); Carbon Dioxide 26 mmol/L (22-29); Chloride 111 mmol/L (96-108); Creatinine Clr Calc Pharmacy 64.8; Estimated Glomerular Filt Rate 40; Glucose Random 82 mg/dL (60-115); Potassium 3.9 mmol/L (3.3-5.1); Sodium 147 mmol/L (135-145)
--- NOTE | 2020-07-27 09:48 | P.PNPSI_ITS ---
Subjective Subjective Date of Service: 07/27/20 Reason For Visit: joleen Subjective Notes: Section 7 and Section 8 Interim History: The patient remains disorganized with episodic agitation. Yesterday we got Section 7 and [address] to start ECT. Medically cleared by Internal Medicine, on NPO, anesthesia has authorized the add on for today in the afternoon. Medication Compliance: Intermittent Side effects from medications: No Attending Groups: No Review of Systems Review of Systems Yes Unobtainable due to mental status Mental Status Exam Mental Status Exam Patient Appearance: Disheveled and Inappropriate Level of Consciousness: Disoriented and Restless Patient Behavior: Suspicious and Confused Mood Description: Withdrawn and Hostile Affect Description: Labile Patient Cognition Impaired: No Ability to Follow Directions: Poor Speech Pattern: No Speech Thought Process: Disoriented and Incoherent Thought Content: positive for Loose Associations Abnormal Motor Activity Signs and Symptoms: Aggression Judgement: Poor Judgement and Insight: No insight Diagnostics Vital Signs (24Hr): Vital Signs - 24 hr 07/26/20 19:38 Temperature 98.3 F Pulse Rate 120 H Blood Pressure 131/84 Body Mass Index 30.2 Labs Results: 07/27/20 08:24 07/27/20 08:24 Labs: Laboratory Results - last 48 hr 07/27/20 07/27/20 08:24 08:24 WBC 5.8 RBC 3.91 L Hgb 12.0 L Hct 35.5 L MCV 90.8 MCH 30.7 MCHC 33.8 RDW 13.5 Plt Count 204 MPV 9.4 Immature Gran % (Auto) 0.3 Neut % (Auto) 61.6 Lymph % (Auto) 18.4 L [place] % (Auto) 10.9 Eos % (Auto) 8.5 H Baso % (Auto) 0.3 Lymph # (Auto) 1.1 L [place] # (Auto) 0.6 Eos # (Auto) 0.5 H Baso # (Auto) 0.0 Abs Immat Gran (auto) 0.02 Absolute Neuts (auto) 3.5 Absolute Nucleated RBC 0.000 Nucleated RBC % (auto) 0.0 Sodium 147 H Potassium 3.9 Chloride 111 H Carbon Dioxide 26 Anion Gap 14 BUN 21 H Creatinine 1.86 H Estim Creat Clear Calc 64.8 Estimated GFR 40 Random Glucose 82 Calcium 8.8 D Imaging Radiology Impressions: ITS Impressions Foot X-Ray 07/20/20 15:03 IMPRESSION: No fracture seen. Calcaneal spurs and mild degenerative changes. Medications Medications Current Medications Generic Name Dose Route Start Last Admin Trade Name Freq PRN Reason Stop Dose Admin Acetaminophen 650 mg 07/18/20 15:30 Acetaminophen 325 Mg Tablet PO Q6H PRN Headache/Pain Mild Scale (1-3) Al Hydroxide/Mg Hydroxide 30 ml 07/18/20 15:30 Magnesium Hydrox/Alum Hydrox 30 Ml Oral.Susp PO Q6H PRN Heartburn/Nausea Aripiprazole 30 mg 07/22/20 09:00 07/26/20 08:19 Aripiprazole 30 Mg Tablet PO 30 mg DAILY CONRAD Administration Carbamazepine 100 mg 07/25/20 15:00 07/26/20 19:39 Carbamazepine 100 Mg Tab.Chew PO Not Given TID [facility] Chlorpromazine HCl 100 mg 07/21/20 10:50 07/27/20 06:15 Chlorpromazine Hcl 100 Mg Tablet PO 100 mg RQ4H PRN Administration anxiety/restlessness Clotrimazole 1 appl 07/21/20 21:00 07/26/20 22:13 Clotrimazole 1 % Cream 15 Gm Tube TOPICAL Not Given BID [facility] Protocol Hydroxyzine HCl 25 mg 07/18/20 15:30 07/26/20 00:05 Hydroxyzine Hcl 25 Mg Tablet PO 25 mg BEDTIME PRN Administration Anxiety Lorazepam 2 mg 07/26/20 17:41 07/26/20 18:09 Lorazepam 1 Mg Tablet PO 2 mg Q4H PRN Administration Psychosis/severe agitation Magnesium Hydroxide 30 ml 07/18/20 15:30 Milk Of Magnesia 30 Ml Oral.Susp PO DAILY PRN Constipation Olanzapine 10 mg 07/20/20 21:25 07/27/20 06:15 Olanzapine Odt 10 Mg Tab.Rapdis TRANSLINGU 10 mg RQ4H PRN Administration Psychosis Trazodone HCl 150 mg 07/20/20 21:25 07/25/20 22:54 Trazodone Hcl 50 Mg Tablet PO 150 mg BEDTIME PRN Administration Insomnia Allergies Allergies Allergy/AdvReac Type Severity Reaction Status Date / Time haloperidol [From Haldol] Allergy Unknown Verified 07/22/20 03:38 Assessment & Plan Assessment & Plan (1) Bipolar 1 disorder, mixed, severe: Status: Acute Code(s): F31.63 - Bipolar disorder, current episode mixed, severe, without psychotic features Assessment and Plan: We will do first ECT today in the afternoon.. Continue same treatment Greater than 50% of the session was spent on counseling and/or coordination of care Reason for contiued inpatient stay Substantial Risk for: harm to self, harm to others, inability to function, rapid decompensation and med/psych decompensation
--- NOTE | 2020-07-27 12:09 | P.CONAN_ITS ---
[facility] Active Problems Active Problems: All Active Problems (Updated 07/18/20 @ 15:58 by Alexander ott) Bipolar 1 disorder, mixed, severe (Acute) Social History Social History Household Members: Spouse Household Members Other:: Housing: Unknown / Unable to assess Do you presently have visiting nurse or other home services: No Smoking Status: Unknown if ever smoked Smoked in Last 30 Days: No Patient Interested in Nicotine Replacement: No Patient Given Instructions on How to Stop Smoking: No (N/A) Second Hand Smoke Exposure: No Use of substances other than those prescribed or required for medical reasons: No Substance Use Type Other:: No history of substance use per crisis evaluation Last Used Substance: Unknown Last Used Substance Other:: No substance use reported per crisis evaluation Currently Displaying Signs/Symptoms of Drug Intoxication Withdrawal: No Any prior treatment program specific to substance use: No Have you been hit, kicked, punched, or otherwise hurt by someone within the past year? If so, by whom?: No Do you feel safe in your current relationship?: Yes Is there a partner from a previous relationship who is making you feel unsafe now?: No Are you made to feel afraid or neglected: No Cultural Healthcare Practices: Congregation Advance Directives: No Advance Directives Information Provided: No Advance Directives on File: No Do you have thoughts of harming others: None Do you have a plan to hurt others: No Plan Recently lost weight without trying: No service: No Sexual orientation: Straight/Heterosexual Meds Allergies Allergy/AdvReac Type Severity Reaction Status Date / Time haloperidol [From Haldol] Allergy Unknown Verified 07/22/20 03:38 Active Medications: Current Medications Generic Name Dose Route Start Last Admin Trade Name Freq PRN Reason Stop Dose Admin Acetaminophen 650 mg 07/18/20 15:30 Acetaminophen 325 Mg Tablet PO Q6H PRN Headache/Pain Mild Scale (1-3) Al Hydroxide/Mg Hydroxide 30 ml 07/18/20 15:30 Magnesium Hydrox/Alum Hydrox 30 Ml Oral.Susp PO Q6H PRN Heartburn/Nausea Aripiprazole 30 mg 07/22/20 09:00 07/27/20 10:36 Aripiprazole 30 Mg Tablet PO Not Given DAILY [facility]RAD Carbamazepine 100 mg 07/25/20 15:00 07/27/20 10:36 Carbamazepine 100 Mg Tab.Chew PO Not Given TID [facility] Chlorpromazine HCl 100 mg 07/21/20 10:50 07/27/20 06:15 Chlorpromazine Hcl 100 Mg Tablet PO 100 mg RQ4H PRN Administration anxiety/restlessness Clotrimazole 1 appl 07/21/20 21:00 07/27/20 10:36 Clotrimazole 1 % Cream 15 Gm Tube TOPICAL Not Given BID [facility] Protocol Hydroxyzine HCl 25 mg 07/18/20 15:30 07/26/20 00:05 Hydroxyzine Hcl 25 Mg Tablet PO 25 mg BEDTIME PRN Administration Anxiety Lorazepam 2 mg 07/26/20 17:41 07/26/20 18:09 Lorazepam 1 Mg Tablet PO 2 mg Q4H PRN Administration Psychosis/severe agitation Magnesium Hydroxide 30 ml 07/18/20 15:30 Milk Of Magnesia 30 Ml Oral.Susp PO DAILY PRN Constipation Olanzapine 10 mg 07/20/20 21:25 07/27/20 06:15 Olanzapine Odt 10 Mg Tab.Rapdis TRANSLINGU 10 mg RQ4H PRN Administration Psychosis Trazodone HCl 150 mg 07/20/20 21:25 07/25/20 22:54 Trazodone Hcl 50 Mg Tablet PO 150 mg BEDTIME PRN Administration Insomnia Home Medications Medication Instructions Recorded Confirmed Last Taken Type Unobtainable 07/27/20 07/27/20 Unknown History Exam Exam Date and Time: July 27, 2020 1209 Height,Weight and Vital Signs: Height 6 ft 1 in Weight 103.9 kg Last Vital Signs Temp 98.3 F 07/26/20 19:38 Pulse 120 H 07/26/20 19:38 Resp 16 07/25/20 11:37 BP 131/84 07/26/20 19:38 Pulse Ox 96 07/25/20 11:37 Pertinent Lab Results Pertinent Lab Results: Laboratory Tests 07/24/20 07/24/20 07/25/20 08:19 08:19 08:11 WBC RBC Hgb Hct MCV MCH MCHC RDW Plt Count MPV Immature Gran % (Auto) Neut % (Auto) Lymph % (Auto) [place] % (Auto) Eos % (Auto) Baso % (Auto) Lymph # (Auto) [place] # (Auto) Eos # (Auto) Baso # (Auto) Abs Immat Gran (auto) Absolute Neuts (auto) Absolute Nucleated RBC Nucleated RBC % (auto) Sodium 145 148 H Potassium 4.0 4.0 Chloride 108 111 H Carbon Dioxide 23 27 Anion Gap 18 14 BUN 17 H 15 Creatinine 1.63 H 1.67 H Estim Creat Clear Calc 73.9 72.2 Estimated GFR 46 45 Random Glucose 91 Fasting Glucose 93 Calcium 9.3 9.7 Total Bilirubin 0.9 AST 45 H ALT 59 H Alkaline Phosphatase 48 Total Protein 7.3 Albumin 4.4 TSH 0.95 [place] 0.36 L 07/27/20 07/27/20 08:24 08:24 WBC 5.8 RBC 3.91 L Hgb 12.0 L Hct 35.5 L MCV 90.8 MCH 30.7 MCHC 33.8 RDW 13.5 Plt Count 204 MPV 9.4 Immature Gran % (Auto) 0.3 Neut % (Auto) 61.6 Lymph % (Auto) 18.4 L [place] % (Auto) 10.9 Eos % (Auto) 8.5 H Baso % (Auto) 0.3 Lymph # (Auto) 1.1 L [place] # (Auto) 0.6 Eos # (Auto) 0.5 H Baso # (Auto) 0.0 Abs Immat Gran (auto) 0.02 Absolute Neuts (auto) 3.5 Absolute Nucleated RBC 0.000 Nucleated RBC % (auto) 0.0 Sodium 147 H Potassium 3.9 Chloride 111 H Carbon Dioxide 26 Anion Gap 14 BUN 21 H Creatinine 1.86 H Estim Creat Clear Calc 64.8 Estimated GFR 40 Random Glucose 82 Fasting Glucose Calcium 8.8 D Total Bilirubin AST ALT Alkaline Phosphatase Total Protein Albumin TSH [place] Airway Mallampati Class: II TM Dist: >3cm Neck ROM: Full Assessment and Plan Assessment Anesthesia Assessment: Anesthesia Plan Discussed and Chart Reviewed Final Anesthetic Review NPO: Yes ASA Class: II Final Preanesthetic Review: No Changes in Pt Med Stat, Meds/Allgs Chart Reviewed, Consent Obtained/Reviewed and Anes Risks/Benef Reviewed Patient Risk: Low Procedure Risk: Low Assessment/Block/Sedation in SS: Assess/Block/Sedation-SS Anesthetic Plan Anesthetic Plan: GA Disposition: Standard PACU
--- NOTE | 2020-07-27 12:14 | P.HPSUR_ITS ---
Pre-Procedural Eval Section A The patient is an INPATIENT: Yes Changes since office visit: No Cold of Flu in the past 2 weeks, No New Medical Problems, No Changes in Medication and No Patient answered all questions The History & Physical has been completed within 30 days and I have reviewed it.: Yes Section B Chief Complaint: joleen Details of Present Illness: The patient had a manic episode due to non- compliance that evolved to psychosis and later to catatonic-like symptoms, unable to take informed decisions, on Section [address] E[address] treatment Relevant Family History (Specify if Yes): No Relevant Social History: None Present Medications: see Short Stay Collaborative assessment Medical History: No relevant PMH History of Previous Operations: No relevant previous surgery Allergies: Allergies Allergy/AdvReac Type Severity Reaction Status Date / Time haloperidol [From Haldol] Allergy Unknown Verified 07/22/20 03:38 Review of Systems Sugical H&P ROS: Negative: Constitution, Cardiovascular, Respiratory, Neurological, Hem-Onc, Allergic/Immunologic, Gastrointestinal, Genitourinary, Musculoskeletal, Integumentary, Endocrine and Eyes/Ears/Nose/Throat and Yes, Specify: Psychiatric (See HPI) Exam Surgical H&P Exam: Normal: HEENT, Normal: Heart, Normal: Lungs, Normal: Extremi ties, Normal: Abdomen, Normal: Skin and Normal: Neurological Plan Diagnosis/Plan: Unchanged (Court order ECT bifrontal technique) I have reviewed the history and physical and performed a pertinent physical examination on my patient. No changes have occurred unless specified.
[2020-07-27] MEDS: Lactated Ringers 1,000 ML 20 ML IVCONT (12:15)
--- NOTE | 2020-07-27 12:19 | HO.ECTPROC ---
ECT Procedure Note Diagnosis/Treatment Date of Service: 07/27/20 Diagnosis: Bipolar disorder (manic severe with psychosis and catatonic like symptoms) Current Treatment Number: 1 Treatment: Series ([address] remanded) ECT Settings Device: THYMATRON DGx Electrode Placement: Bifrontal Program/Pulse Width: 0.50 Energy Percent: 100 Seizure Duration By EEG (in seconds): 36 Medications Administration General Anesthetic: Etomidate (18) Muscle Relaxant: Succinylcholine (100) Ancillary Medications Miscillaneous Medications: Propofol, Midazolam and Other Airway Management Airway Management: Bag Mask Ventilation Treatment Recommendations No Changes Recommended: No change Electrode Placement: Bifrontal Program/Pulse Width: 0.50 Energy Percent: 100 Pt Tolerated Procedure w/o Issue: Yes
--- NOTE | 2020-07-27 13:58 | PM.IMCN ---
History of Present Illness Data of Consult Service Date: 07/27/20 Primary Care Provider: Aquiles Salgado MD [facility] Reason for consult: Clearance for ECT A 45 years old male who was admitted to the hospital on July 18 with exacerbation of joleen symptoms who has been worsening during the hospital stay requiring treatment with ECT per the psych team. The patient was laying on the floor, eyes closed, moving all his extremities and not answering any of my questions. His EKG was within normal. Review of Systems Review of Systems: Nonverbal PMFSH Social History Household Members: Spouse Household Members Other:: Housing: Unknown / Unable to assess Do you presently have visiting nurse or other home services: No Smoking Status: Unknown if ever smoked Smoked in Last 30 Days: No Patient Interested in Nicotine Replacement: No Patient Given Instructions on How to Stop Smoking: No (N/A) Second Hand Smoke Exposure: No Use of substances other than those prescribed or required for medical reasons: No Substance Use Type Other:: No history of substance use per crisis evaluation Last Used Substance: Unknown Last Used Substance Other:: No substance use reported per crisis evaluation Currently Displaying Signs/Symptoms of Drug Intoxication Withdrawal: No Any prior treatment program specific to substance use: No Have you been hit, kicked, punched, or otherwise hurt by someone within the past year? If so, by whom?: No Do you feel safe in your current relationship?: Yes Is there a partner from a previous relationship who is making you feel unsafe now?: No Are you made to feel afraid or neglected: No Cultural Healthcare Practices: Adventist Advance Directives: No Advance Directives Information Provided: No Advance Directives on File: No Do you have thoughts of harming others: None Do you have a plan to hurt others: No Plan Recently lost weight without trying: No service: No Sexual orientation: Straight/Heterosexual Meds Allergies Allergy/AdvReac Type Severity Reaction Status Date / Time haloperidol [From Haldol] Allergy Unknown Verified 07/22/20 03:38 Active Medications: Current Medications Generic Name Dose Route Start Last Admin Trade Name Freq PRN Reason Stop Dose Admin Acetaminophen 650 mg 07/18/20 15:30 Acetaminophen 325 Mg Tablet PO Q6H PRN Headache/Pain Mild Scale (1-3) Al Hydroxide/Mg Hydroxide 30 ml 07/18/20 15:30 Magnesium Hydrox/Alum Hydrox 30 Ml Oral.Susp PO Q6H PRN Heartburn/Nausea Aripiprazole 30 mg 07/22/20 09:00 07/27/20 10:36 Aripiprazole 30 Mg Tablet PO Not Given DAILY [facility] Carbamazepine 100 mg 07/25/20 15:00 07/27/20 10:36 Carbamazepine 100 Mg Tab.Chew PO Not Given TID [facility] Chlorpromazine HCl 100 mg 07/21/20 10:50 07/27/20 06:15 Chlorpromazine Hcl 100 Mg Tablet PO 100 mg RQ4H PRN Administration anxiety/restlessness Clotrimazole 1 appl 07/21/20 21:00 07/27/20 10:36 Clotrimazole 1 % Cream 15 Gm Tube TOPICAL Not Given BID [facility] Protocol Hydroxyzine HCl 25 mg 07/18/20 15:30 07/26/20 00:05 Hydroxyzine Hcl 25 Mg Tablet PO 25 mg BEDTIME PRN Administration Anxiety Lactated Ringer's 1,000 mls @ 20 mls/hr 07/27/20 12:15 Lr IVCONT .Q24H [facility] Lorazepam 2 mg 07/26/20 17:41 07/26/20 18:09 Lorazepam 1 Mg Tablet PO 2 mg Q4H PRN Administration Psychosis/severe agitation Magnesium Hydroxide 30 ml 07/18/20 15:30 Milk Of Magnesia 30 Ml Oral.Susp PO DAILY PRN Constipation Olanzapine 10 mg 07/20/20 21:25 07/27/20 06:15 Olanzapine Odt 10 Mg Tab.Rapdis TRANSLINGU 10 mg RQ4H PRN Administration Psychosis Trazodone HCl 150 mg 07/20/20 21:25 07/25/20 22:54 Trazodone Hcl 50 Mg Tablet PO 150 mg BEDTIME PRN Administration Insomnia Home Medications Medication Instructions Recorded Confirmed Last Taken Type Unobtainable 07/27/20 07/27/20 Unknown History Physical Exam Vital Signs and Narrative: Vital Signs: Last Vital Signs Temp 97.6 F 07/27/20 12:42 Pulse 90 07/27/20 13:42 Resp 12 07/27/20 13:42 BP 125/75 07/27/20 13:27 Pulse Ox 97 07/27/20 13:42 Body Mass Index 30.2 Const: Other: A Altered, not responsive, laying on the floor, not interactive Skin Warm/Dry, No rash Results Labs CBC and Chem 7: 07/27/20 08:24 07/27/20 08:24 Labs: Laboratory Results - last 24 hr 07/27/20 07/27/20 08:24 08:24 MCV 90.8 MCH 30.7 MCHC 33.8 RDW 13.5 Plt Count 204 MPV 9.4 Immature Gran % (Auto) 0.3 Neut % (Auto) 61.6 Lymph % (Auto) 18.4 L [place] % (Auto) 10.9 Eos % (Auto) 8.5 H Baso % (Auto) 0.3 Lymph # (Auto) 1.1 L [place] # (Auto) 0.6 Eos # (Auto) 0.5 H Baso # (Auto) 0.0 Abs Immat Gran (auto) 0.02 Absolute Neuts (auto) 3.5 Absolute Nucleated RBC 0.000 Nucleated RBC % (auto) 0.0 Anion Gap 14 Estim Creat Clear Calc 64.8 Estimated GFR 40 Random Glucose 82 Calcium 8.8 D Assessment and Plan (1) Bipolar 1 disorder, mixed, severe: Status: Acute A 45 years old male who was admitted to the hospital on July 18 with exacerbation of joleen symptoms who has been worsening during the hospital stay requiring treatment with ECT per the psych team. Preop eval EKG within normal As it seems from discussions with psychiatry team the ECT is the best of to improve this patient current status No medical contraindications to do ECT Hypernatremia Acute kidney injury Secondary to decrease oral intake and dehydration Encourage free water intake To use D5W and repeat BMP Daily Thank you for the consult, will continue to monitor the patient with you
[2020-07-27] MEDS: carBAMazepine 100 MG TAB.CHEW PO ×2 (15:31→20:00)
[2020-07-27] MEDS: traZODone HCL 50 MG TABLET 150 MG PO (20:09)
[2020-07-27] MEDS: hydrOXYzine HCL 25 MG TABLET PO (23:13)
[2020-07-27] MEDS: LORazepam 1 MG TABLET 2 MG PO (23:18)
[2020-07-28] MEDS: LORazepam 1 MG TABLET 2 MG PO ×3 (05:56→23:12)
[2020-07-28] MEDS: chlorproMAZINE HCl 100 MG TABLET PO ×4 (05:56→19:59)
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
[2020-07-28] MEDS: OLANZapine ODT 10 MG TAB.RAPDIS TRANSLINGU ×4 (07:24→19:59)
[2020-07-28 08:25] LABS: Anion Gap 17 (12-20); Blood Urea Nitrogen 22 mg/dL (9-16); Calcium 9.2 mg/dL (8.4-10.2); Carbon Dioxide 23 mmol/L (22-29); Chloride 110 mmol/L (96-108); Creatinine Clr Calc Pharmacy 62.4; Estimated Glomerular Filt Rate 38; Glucose Random 104 mg/dL (60-115); Potassium 3.8 mmol/L (3.3-5.1); Sodium 146 mmol/L (135-145)
[2020-07-28] MEDS: carBAMazepine 100 MG TAB.CHEW PO ×3 (08:57→20:00)
[2020-07-28] MEDS: ARIPiprazole 30 MG TABLET PO (08:57)
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
[2020-07-28 18:00] VITALS: BP 136/80; PULSE 103; TEMP 37.1; O2SAT 95
[2020-07-28] MEDS: traZODone HCL 50 MG TABLET 150 MG PO (23:13)
[2020-07-28] MEDS: hydrOXYzine HCL 25 MG TABLET PO (23:13)
[2020-07-29] MEDS: chlorproMAZINE HCl 100 MG TABLET PO ×4 (03:21→19:05)
[2020-07-29] MEDS: LORazepam 1 MG TABLET 2 MG PO ×3 (03:21→19:05)
[2020-07-29] MEDS: hydrOXYzine HCL 25 MG TABLET PO (03:21)
[2020-07-29] MEDS: OLANZapine ODT 10 MG TAB.RAPDIS TRANSLINGU ×3 (04:40→14:09)
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
[2020-07-29 08:55] LABS: Anion Gap 16 (12-20); Blood Urea Nitrogen 16 mg/dL (9-16); Calcium 9.4 mg/dL (8.4-10.2); Carbon Dioxide 23 mmol/L (22-29); Chloride 112 mmol/L (96-108); Creatinine Clr Calc Pharmacy 70.5; Estimated Glomerular Filt Rate 44; Glucose Random 105 mg/dL (60-115); Potassium 3.9 mmol/L (3.3-5.1); Sodium 147 mmol/L (135-145)
[2020-07-29] MEDS: ARIPiprazole 30 MG TABLET PO (09:00)
[2020-07-29] MEDS: carBAMazepine 100 MG TAB.CHEW PO ×2 (09:00→14:09)
--- NOTE | 2020-07-29 16:27 | HO.PM.IMPN ---
Subjective Subjective Date of Service: 07/29/20 Interval History: Patient was seen and evaluated this morning Walking on the hold with security No complaints at this point Kidney function mildly better Review of Systems Patient not interested in talking Physical Exam Vital Signs: Vital Signs: Last Vital Signs Temp 98.7 F 07/28/20 18:00 Pulse 103 H 07/28/20 18:00 Resp 18 07/27/20 14:27 BP 136/80 07/28/20 18:00 Pulse Ox 95 07/28/20 18:00 Body Mass Index 30.2 Const: Other: Alert, interactive No skin abnormality, no jaundice Chest wall moving bilaterally, no audible wheezes No JVD, no edema Objective Data Current Medications Generic Name Dose Route Start Last Admin Trade Name Freq PRN Reason Stop Dose Admin Acetaminophen 650 mg 07/18/20 15:30 Acetaminophen 325 Mg Tablet PO Q6H PRN Headache/Pain Mild Scale (1-3) Al Hydroxide/Mg Hydroxide 30 ml 07/18/20 15:30 Magnesium Hydrox/Alum Hydrox 30 Ml Oral.Susp PO Q6H PRN Heartburn/Nausea Aripiprazole 30 mg 07/22/20 09:00 07/29/20 09:00 Aripiprazole 30 Mg Tablet PO 30 mg DAILY CONRAD Administration Carbamazepine 100 mg 07/25/20 15:00 07/29/20 14:09 Carbamazepine 100 Mg Tab.Chew PO 100 mg TID CONRAD Administration Chlorpromazine HCl 100 mg 07/21/20 10:50 07/29/20 14:09 Chlorpromazine Hcl 100 Mg Tablet PO 100 mg RQ4H PRN Administration anxiety/restlessness Clotrimazole 1 appl 07/21/20 21:00 07/29/20 09:59 Clotrimazole 1 % Cream 15 Gm Tube TOPICAL Not Given BID [facility] Protocol Hydroxyzine HCl 25 mg 07/18/20 15:30 07/29/20 03:21 Hydroxyzine Hcl 25 Mg Tablet PO 25 mg BEDTIME PRN Administration Anxiety Lorazepam 2 mg 07/26/20 17:41 07/29/20 14:09 Lorazepam 1 Mg Tablet PO 2 mg Q4H PRN Administration Psychosis/severe agitation Magnesium Hydroxide 30 ml 07/18/20 15:30 Milk Of Magnesia 30 Ml Oral.Susp PO DAILY PRN Constipation Olanzapine 10 mg 07/28/20 15:00 07/29/20 14:09 Olanzapine Odt 10 Mg Tab.Rapdis TRANSLINGU 10 mg TID CONRAD Administration Olanzapine 10 mg 07/28/20 13:12 07/29/20 04:40 Olanzapine Odt 10 Mg Tab.Rapdis TRANSLINGU 10 mg DAILY PRN Administration Psychosis Trazodone HCl 150 mg 07/20/20 21:25 07/28/20 23:13 Trazodone Hcl 50 Mg Tablet PO 150 mg BEDTIME PRN Administration Insomnia Labs CBC & Chem 7: 07/27/20 08:24 07/29/20 08:22 Assessment and Plan (1) Bipolar 1 disorder, mixed, severe: Status: Acute Assessment and Plan: A 45 years old male who was admitted to the hospital on July 18 with exacerbation of joleen symptoms who has been worsening during the hospital stay requiring treatment with ECT per the psych team. Hypernatremia Secondary to decreased oral intake Increased from water intake Follow BMP Acute kidney injury Secondary to decrease oral intake and dehydration Last creatinine from 07/17/2020 from [facility] showed creatinine of 1.5 Creatinine decreased 1.7 this morning Patient is drinking more as he became more alert and interactive To repeat BMP in few days Thank you for the consult, will continue to monitor the patient with you
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
[2020-07-30] VITALS (12 sets, daily range): BP systolic 105–141; BP diastolic 66–86; PULSE 87–114; RESP 18; TEMP 36.2–36.8; O2SAT 91–99
[2020-07-30] MEDS: chlorproMAZINE HCl 100 MG TABLET PO ×4 (00:45→21:01)
[2020-07-30] MEDS: OLANZapine ODT 10 MG TAB.RAPDIS TRANSLINGU ×4 (00:45→21:01)
[2020-07-30] MEDS: traZODone HCL 50 MG TABLET 150 MG PO ×2 (00:46→21:01)
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
--- NOTE | 2020-07-30 07:07 | MHC.SHP ---
Pre-Procedural Eval Section A The patient is an INPATIENT: Yes Changes since office visit: Yes Changes in Medication; No Cold of Flu in the past 2 weeks, No New Medical Problems and No Patient answered all questions The History & Physical has been completed within 30 days and I have reviewed it.: Yes Section B Chief Complaint: joleen Allergies: Allergies Allergy/AdvReac Type Severity Reaction Status Date / Time haloperidol [From Haldol] Allergy Unknown Verified 07/22/20 03:38 Plan I have reviewed the history and physical and performed a pertinent physical examination on my patient. No changes have occurred unless specified.
--- NOTE | 2020-07-30 07:10 | P.CONAN_ITS ---
[facility] Social History Social History Household Members: Spouse Household Members Other:: Housing: Unknown / Unable to assess Do you presently have visiting nurse or other home services: No Smoking Status: Unknown if ever smoked Smoked in Last 30 Days: No Patient Interested in Nicotine Replacement: No Patient Given Instructions on How to Stop Smoking: No (N/A) Second Hand Smoke Exposure: No Use of substances other than those prescribed or required for medical reasons: No Substance Use Type Other:: No history of substance use per crisis evaluation Last Used Substance: Unknown Last Used Substance Other:: No substance use reported per crisis evaluation Currently Displaying Signs/Symptoms of Drug Intoxication Withdrawal: No Any prior treatment program specific to substance use: No Have you been hit, kicked, punched, or otherwise hurt by someone within the past year? If so, by whom?: No Do you feel safe in your current relationship?: Yes Is there a partner from a previous relationship who is making you feel unsafe now?: No Are you made to feel afraid or neglected: No Cultural Healthcare Practices: Anabaptism Advance Directives: No Advance Directives Information Provided: No Advance Directives on File: No Do you have thoughts of harming others: None Do you have a plan to hurt others: No Plan Recently lost weight without trying: No service: No Sexual orientation: Straight/Heterosexual Meds Allergies Allergy/AdvReac Type Severity Reaction Status Date / Time haloperidol [From Haldol] Allergy Unknown Verified 07/22/20 03:38 Home Medications Medication Instructions Recorded Confirmed Last Taken Type Unobtainable 07/27/20 07/27/20 Unknown History Exam Airway Mallampati Class: II TM Dist: >3cm Neck ROM: Full Assessment and Plan Assessment Anesthesia Assessment: Anesthesia Plan Discussed and Chart Reviewed Final Anesthetic Review NPO: Yes ASA Class: II Final Preanesthetic Review: No Changes in Pt Med Stat, Meds/Allgs Chart Reviewed, Consent Obtained/Reviewed and Anes Risks/Benef Reviewed Patient Risk: Low Procedure Risk: Low Anesthetic Plan Anesthetic Plan: GA Disposition: Standard PACU
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
[2020-07-30] MEDS: carBAMazepine 100 MG TAB.CHEW PO ×3 (09:44→21:01)
[2020-07-30] MEDS: LORazepam 1 MG TABLET 2 MG PO (09:44)
--- NOTE | 2020-07-30 09:44 | P.PNPSI_ITS ---
Subjective Subjective Date of Service: 07/30/20 Reason For Visit: joleen Subjective Notes: Section 7 and Section 8 Interim History: The patient has been labile over the weekend, he was violent on Thursday and Zyprexa has been changed to schedule TID. He is drinking PO fluids, still with high Na and high Cr. I will try to contact PCP to find out his baselines on BMP. Medication Compliance: Yes Side effects from medications: No Attending Groups: No Review of Systems Review of Systems Yes Unobtainable due to mental status Mental Status Exam Mental Status Exam Patient Appearance: Disheveled (on hospital gowns) Patient Orientation: Person, Place, Time and Situation Level of Consciousness: Disoriented (post-ictal) Patient Behavior: Resistive to Care, Combative and Distractible Mood Description: Hostile and Apprehensive Affect Description: Labile Patient Cognition Impaired: Yes Ability to Follow Directions: Poor Speech Pattern: No Speech Delusions: Bizarre Thought Process: Incoherent, Racing and Confusion Thought Content: positive for Disorganized Abnormal Motor Activity Signs and Symptoms: Aggression Judgement: Poor Diagnostics Vital Signs (24Hr): Vital Signs - 24 hr 07/30/20 06:15 07/30/20 06:39 07/30/20 06:48 Temperature 98.1 F 98.1 F 97.2 F Pulse Rate 109 H 109 H 114 H Respiratory Rate 18 18 18 Blood Pressure 116/74 116/74 122/84 Pulse Oximetry 97 97 98 07/30/20 07:30 07/30/20 07:35 07/30/20 07:40 Temperature 98.2 F Pulse Rate 105 H 98 100 Respiratory Rate 18 18 18 Blood Pressure 141/71 H 141/84 H 131/84 Pulse Oximetry 98 99 99 07/30/20 07:45 07/30/20 08:00 07/30/20 08:15 Temperature Pulse Rate 95 90 87 Respiratory Rate 18 18 18 Blood Pressure 115/71 109/68 106/66 Pulse Oximetry 91 L 96 96 07/30/20 08:30 07/30/20 08:44 Temperature Pulse Rate 94 94 Respiratory Rate 18 18 Blood Pressure 106/68 105/66 Pulse Oximetry 94 94 Body Mass Index 30.2 Labs Results: 07/27/20 08:24 07/29/20 08:22 Labs: Laboratory Results - last 48 hr 07/29/20 08:22 Sodium 147 H Potassium 3.9 Chloride 112 H Carbon Dioxide 23 Anion Gap 16 BUN 16 Creatinine 1.71 H Estim Creat Clear Calc 70.5 Estimated GFR 44 Random Glucose 105 Calcium 9.4 Imaging Radiology Impressions: ITS Impressions Foot X-Ray 07/20/20 15:03 IMPRESSION: No fracture seen. Calcaneal spurs and mild degenerative changes. Medications Medications Current Medications Generic Name Dose Route Start Last Admin Trade Name Freq PRN Reason Stop Dose Admin Acetaminophen 650 mg 07/18/20 15:30 Acetaminophen 325 Mg Tablet PO Q6H PRN Headache/Pain Mild Scale (1-3) Al Hydroxide/Mg Hydroxide 30 ml 07/18/20 15:30 Magnesium Hydrox/Alum Hydrox 30 Ml Oral.Susp PO Q6H PRN Heartburn/Nausea Aripiprazole 30 mg 07/22/20 09:00 07/29/20 09:00 Aripiprazole 30 Mg Tablet PO 30 mg DAILY CONRAD Administration Carbamazepine 100 mg 07/25/20 15:00 07/29/20 17:22 Carbamazepine 100 Mg Tab.Chew PO Not Given TID [facility] Chlorpromazine HCl 100 mg 07/21/20 10:50 07/30/20 00:45 Chlorpromazine Hcl 100 Mg Tablet PO 100 mg RQ4H PRN Administration anxiety/restlessness Clotrimazole 1 appl 07/21/20 21:00 07/29/20 23:15 Clotrimazole 1 % Cream 15 Gm Tube TOPICAL Not Given BID [facility] Protocol Hydroxyzine HCl 25 mg 07/18/20 15:30 07/29/20 03:21 Hydroxyzine Hcl 25 Mg Tablet PO 25 mg BEDTIME PRN Administration Anxiety Lorazepam 2 mg 07/26/20 17:41 07/29/20 19:05 Lorazepam 1 Mg Tablet PO 2 mg Q4H PRN Administration Psychosis/severe agitation Magnesium Hydroxide 30 ml 07/18/20 15:30 Milk Of Magnesia 30 Ml Oral.Susp PO DAILY PRN Constipation Olanzapine 10 mg 07/28/20 15:00 07/30/20 00:45 Olanzapine Odt 10 Mg Tab.Rapdis TRANSLINGU 10 mg TID CONRAD Administration Olanzapine 10 mg 07/28/20 13:12 07/29/20 04:40 Olanzapine Odt 10 Mg Tab.Rapdis TRANSLINGU 10 mg DAILY PRN Administration Psychosis Trazodone HCl 150 mg 07/20/20 21:25 07/30/20 00:46 Trazodone Hcl 50 Mg Tablet PO 150 mg BEDTIME PRN Administration Insomnia Allergies Allergies Allergy/AdvReac Type Severity Reaction Status Date / Time haloperidol [From Haldol] Allergy Unknown Verified 07/22/20 03:38 Assessment & Plan Assessment & Plan (1) Bipolar 1 disorder, mixed, severe: Status: Acute Code(s): F31.63 - Bipolar disorder, current episode mixed, severe, without psychotic features Assessment and Plan: Continue same medication and ECT as scheduled. Get more collateral information from PCP. Greater than 50% of the session was spent on counseling and/or coordination of care Reason for contiued inpatient stay Substantial Risk for: harm to self, harm to others, inability to function, rapid decompensation and med/psych decompensation
[2020-07-30] MEDS: ARIPiprazole 30 MG TABLET PO (09:45)
[2020-07-30] MEDS: hydrOXYzine HCL 25 MG TABLET PO (21:02)
[2020-07-31] MEDS: chlorproMAZINE HCl 100 MG TABLET PO ×4 (02:07→23:33)
[2020-07-31] MEDS: LORazepam 1 MG TABLET 2 MG PO ×2 (02:07→13:03)
[2020-07-31] MEDS: OLANZapine ODT 10 MG TAB.RAPDIS TRANSLINGU ×4 (02:07→21:33)
[2020-07-31 09:02] LABS: Anion Gap 14 (12-20); Blood Urea Nitrogen 18 mg/dL (9-16); Carbon Dioxide 26 mmol/L (22-29); Chloride 108 mmol/L (96-108); Creatinine Clr Calc Pharmacy 60.2; Estimated Glomerular Filt Rate 37; Glucose Random 94 mg/dL (60-115); Potassium 4.3 mmol/L (3.3-5.1); Sodium 144 mmol/L (135-145)
[2020-07-31 09:06] LABS: Alanine Aminotransferase 28 U/L (0-40); Albumin Level 3.9 g/dL (3.5-5.0); Alkaline Phosphatase 54 U/L (39-117); Aspartate Amino Transferase 18 U/L (5-37); Bilirubin Direct 0.3 mg/dL (0.0-0.5); Bilirubin Total 0.7 mg/dL (0.0-1.0); Total Protein 6.5 g/dL (6.5-8.0)
[2020-07-31 09:19] LABS: Carbamazepine Tegretol 6.1 mcg/mL (5.0-12.0)
[2020-07-31] MEDS: ARIPiprazole 30 MG TABLET PO (09:36)
[2020-07-31] MEDS: carBAMazepine 100 MG TAB.CHEW PO ×2 (09:37→14:26)
--- NOTE | 2020-07-31 10:06 | P.PNPSI_ITS ---
Subjective Subjective Date of Service: 07/31/20 Reason For Visit: joleen Subjective Notes: Section 7 and Section 8 Interim History: The staff has reported less outbursts, he could speak yesterday and reported that my brain is scrambling . Today, he ate some breakfast and he is having PO liquids. I tried to interview him but he looked confused I want to go to the 4th floor . I called [facility] and I spoke with the doctor client relations associate and apparently, his Cr has been around 1.3 to 1.5 for the last 7 years. Today Cr on 2 but BUN lowering. Medication Compliance: Yes Side effects from medications: No Attending Groups: No Review of Systems Review of Systems Yes Unobtainable due to mental status Mental Status Exam Mental Status Exam Patient Appearance: Disheveled Patient Orientation: Person Level of Consciousness: Awake and Disoriented Patient Behavior: Guarded, Confused and Impulsive Mood Description: Blunted Affect Description: Labile Patient Cognition Impaired: Yes Ability to Follow Directions: Poor Speech Pattern: Clear Thought Process: Disoriented and Incoherent Thought Content: positive for Loose Associations and positive for Thought Blocking Abnormal Motor Activity Signs and Symptoms: Psychomotor Retardation Judgement: Poor Diagnostics Vital Signs (24Hr): Body Mass Index 30.2 Labs Results: 07/27/20 08:24 07/31/20 08:26 Labs: Laboratory Results - last 48 hr 07/31/20 07/31/20 07/31/20 08:26 08:26 08:26 Sodium 144 Potassium 4.3 Chloride 108 Carbon Dioxide 26 Anion Gap 14 BUN 18 H Creatinine 2.00 H Estim Creat Clear Calc 60.2 Estimated GFR 37 Random Glucose 94 Calcium 9.0 Total Bilirubin 0.7 Direct Bilirubin 0.3 AST 18 D ALT 28 Alkaline Phosphatase 54 Total Protein 6.5 Albumin 3.9 Carbamazepine 6.1 Imaging Radiology Impressions: ITS Impressions Foot X-Ray 07/20/20 15:03 IMPRESSION: No fracture seen. Calcaneal spurs and mild degenerative changes. Medications Medications Current Medications Generic Name Dose Route Start Last Admin Trade Name Freq PRN Reason Stop Dose Admin Acetaminophen 650 mg 07/18/20 15:30 Acetaminophen 325 Mg Tablet PO Q6H PRN Headache/Pain Mild Scale (1-3) Al Hydroxide/Mg Hydroxide 30 ml 07/18/20 15:30 Magnesium Hydrox/Alum Hydrox 30 Ml Oral.Susp PO Q6H PRN Heartburn/Nausea Aripiprazole 30 mg 07/22/20 09:00 07/31/20 09:36 Aripiprazole 30 Mg Tablet PO 30 mg DAILY CONRAD Administration Carbamazepine 100 mg 07/25/20 15:00 07/31/20 09:37 Carbamazepine 100 Mg Tab.Chew PO 100 mg TID CONRAD Administration Chlorpromazine HCl 100 mg 07/21/20 10:50 07/31/20 09:37 Chlorpromazine Hcl 100 Mg Tablet PO 100 mg RQ4H PRN Administration anxiety/restlessness Clotrimazole 1 appl 07/21/20 21:00 07/31/20 09:37 Clotrimazole 1 % Cream 15 Gm Tube TOPICAL Not Given BID [facility] Protocol Hydroxyzine HCl 25 mg 07/18/20 15:30 07/30/20 21:02 Hydroxyzine Hcl 25 Mg Tablet PO 25 mg BEDTIME PRN Administration Anxiety Lorazepam 2 mg 07/26/20 17:41 07/31/20 02:07 Lorazepam 1 Mg Tablet PO 2 mg Q4H PRN Administration Psychosis/severe agitation Magnesium Hydroxide 30 ml 07/18/20 15:30 Milk Of Magnesia 30 Ml Oral.Susp PO DAILY PRN Constipation Olanzapine 10 mg 07/28/20 15:00 07/31/20 09:37 Olanzapine Odt 10 Mg Tab.Rapdis TRANSLINGU 10 mg TID CONRAD Administration Olanzapine 10 mg 07/28/20 13:12 07/31/20 02:07 Olanzapine Odt 10 Mg Tab.Rapdis TRANSLINGU 10 mg DAILY PRN Administration Psychosis Trazodone HCl 150 mg 07/20/20 21:25 07/30/20 21:01 Trazodone Hcl 50 Mg Tablet PO 150 mg BEDTIME PRN Administration Insomnia Allergies Allergies Allergy/AdvReac Type Severity Reaction Status Date / Time haloperidol [From Haldol] Allergy Unknown Verified 07/22/20 03:38 Assessment & Plan Assessment & Plan (1) Bipolar 1 disorder, mixed, severe: Status: Acute Code(s): F31.63 - Bipolar disorder, current episode mixed, severe, without psychotic features Assessment and Plan: Keep same treatment ECT tomorrow. Hold Tegretol tonight Greater than 50% of the session was spent on counseling and/or coordination of care Reason for contiued inpatient stay Substantial Risk for: harm to self, harm to others, inability to function, rapid decompensation and med/psych decompensation
[2020-07-31 21:45] VITALS: BP 121/78; PULSE 106; TEMP 36.6
[2020-07-31] MEDS: traZODone HCL 50 MG TABLET 150 MG PO (23:33)
[2020-08-01] VITALS (11 sets, daily range): BP systolic 114–164; BP diastolic 72–99; PULSE 76–113; RESP 14–18; TEMP 36.5–38; O2SAT 94–100
[2020-08-01] MEDS: OLANZapine ODT 10 MG TAB.RAPDIS TRANSLINGU ×6 (00:43→21:49)
[2020-08-01] MEDS: hydrOXYzine HCL 25 MG TABLET PO (00:43)
[2020-08-01] MEDS: chlorproMAZINE HCl 100 MG TABLET PO ×3 (06:57→21:48)
--- NOTE | 2020-08-01 08:33 | HO.ECTPROC ---
ECT Procedure Note Diagnosis/Treatment Date of Service: 08/01/20 Diagnosis: Bipolar disorder Previous ECT Date: 07/30/20 Current Treatment Number: 3 Treatment: Series Interval Clinical Notes: continues agitated needed much support to get to ect ECT Settings Device: THYMATRON DGx Electrode Placement: Rt temporal/ Lt frontal Program/Pulse Width: 0.50 Energy Percent: 100 Seizure Duration By EEG (in seconds): 24 Medications Administration General Anesthetic: Etomidate (14) Muscle Relaxant: Succinylcholine Ancillary Medications Analgesics: Torodol - Pre ECT Anti-emetics: Zofran - Pre ECT Miscillaneous Medications: Propofol and Midazolam Airway Management Airway Management: Bag Mask Ventilation Treatment Recommendations Electrode Placement: Bitemporal Notes: hyperventilate pre tx Pt Tolerated Procedure w/o Issue: Yes
--- NOTE | 2020-08-01 08:38 | HO.ANESPROP2 ---
[facility] Active Problems Active Problems: All Active Problems (Updated 07/18/20 @ 15:58 by Alexander Rodriguez) Bipolar 1 disorder, mixed, severe (Acute) Social History Social History Household Members: Spouse Household Members Other:: Housing: Unknown / Unable to assess Do you presently have visiting nurse or other home services: No Smoking Status: Unknown if ever smoked Smoked in Last 30 Days: No Patient Interested in Nicotine Replacement: No Patient Given Instructions on How to Stop Smoking: No (N/A) Second Hand Smoke Exposure: No Use of substances other than those prescribed or required for medical reasons: No Substance Use Type Other:: No history of substance use per crisis evaluation Last Used Substance: Unknown Last Used Substance Other:: No substance use reported per crisis evaluation Currently Displaying Signs/Symptoms of Drug Intoxication Withdrawal: No Any prior treatment program specific to substance use: No Have you been hit, kicked, punched, or otherwise hurt by someone within the past year? If so, by whom?: No Do you feel safe in your current relationship?: Yes Is there a partner from a previous relationship who is making you feel unsafe now?: No Are you made to feel afraid or neglected: No Cultural Healthcare Practices: [employer] Advance Directives: No Advance Directives Information Provided: No Advance Directives on File: No Do you have thoughts of harming others: Vague Do you have a plan to hurt others: No Plan Recently lost weight without trying: No service: No Sexual orientation: Straight/Heterosexual Meds Allergies Allergy/AdvReac Type Severity Reaction Status Date / Time haloperidol [From Haldol] Allergy Unknown Verified 07/22/20 03:38 Active Medications: Current Medications Generic Name Dose Route Start Last Admin Trade Name Freq PRN Reason Stop Dose Admin Acetaminophen 650 mg 07/18/20 15:30 Acetaminophen 325 Mg Tablet PO Q6H PRN Headache/Pain Mild Scale (1-3) Al Hydroxide/Mg Hydroxide 30 ml 07/18/20 15:30 Magnesium Hydrox/Alum Hydrox 30 Ml Oral.Susp PO Q6H PRN Heartburn/Nausea Aripiprazole 30 mg 07/22/20 09:00 07/31/20 09:36 Aripiprazole 30 Mg Tablet PO 30 mg DAILY CONRAD Administration Chlorpromazine HCl 100 mg 07/21/20 10:50 07/31/20 23:33 Chlorpromazine Hcl 100 Mg Tablet PO 100 mg RQ4H PRN Administration anxiety/restlessness Clotrimazole 1 appl 07/21/20 21:00 07/31/20 23:29 Clotrimazole 1 % Cream 15 Gm Tube TOPICAL Not Given BID [facility] Protocol Hydroxyzine HCl 25 mg 07/18/20 15:30 08/01/20 00:43 Hydroxyzine Hcl 25 Mg Tablet PO 25 mg BEDTIME PRN Administration Anxiety Magnesium Hydroxide 30 ml 07/18/20 15:30 Milk Of Magnesia 30 Ml Oral.Susp PO DAILY PRN Constipation Olanzapine 10 mg 07/28/20 15:00 07/31/20 21:33 Olanzapine Odt 10 Mg Tab.Rapdis TRANSLINGU 10 mg TID CONRAD Administration Olanzapine 10 mg 07/28/20 13:12 08/01/20 00:43 Olanzapine Odt 10 Mg Tab.Rapdis TRANSLINGU 10 mg DAILY PRN Administration Psychosis Trazodone HCl 150 mg 07/20/20 21:25 07/31/20 23:33 Trazodone Hcl 50 Mg Tablet PO 150 mg BEDTIME PRN Administration Insomnia Home Medications Medication Instructions Recorded Confirmed Last Taken Type Unobtainable 07/27/20 07/27/20 Unknown History Exam Exam Date and Time: August 01, 2020 0838 Height,Weight and Vital Signs: Height 6 ft 1 in Weight 103.9 kg Last Vital Signs Temp 98.2 F 08/01/20 08:20 Pulse 101 H 08/01/20 08:20 Resp 18 08/01/20 08:20 BP 131/90 H 08/01/20 08:20 Pulse Ox 95 08/01/20 08:20 Pertinent Lab Results Pertinent Lab Results: Laboratory Tests 07/24/20 07/24/20 07/25/20 08:19 08:19 08:11 WBC RBC Hgb Hct MCV MCH MCHC RDW Plt Count MPV Immature Gran % (Auto) Neut % (Auto) Lymph % (Auto) [place] % (Auto) Eos % (Auto) Baso % (Auto) Lymph # (Auto) [place] # (Auto) Eos # (Auto) Baso # (Auto) Abs Immat Gran (auto) Absolute Neuts (auto) Absolute Nucleated RBC Nucleated RBC % (auto) Sodium 145 148 H Potassium 4.0 4.0 Chloride 108 111 H Carbon Dioxide 23 27 Anion Gap 18 14 BUN 17 H 15 Creatinine 1.63 H 1.67 H Estim Creat Clear Calc 73.9 72.2 Estimated GFR 46 45 Random Glucose 91 Fasting Glucose 93 Calcium 9.3 9.7 Total Bilirubin 0.9 Direct Bilirubin AST 45 H ALT 59 H Alkaline Phosphatase 48 Total Protein 7.3 Albumin 4.4 TSH 0.95 Carbamazepine Cleary 0.36 L 07/27/20 07/27/20 07/28/20 08:24 08:24 07:51 WBC 5.8 RBC 3.91 L Hgb 12.0 L Hct 35.5 L MCV 90.8 MCH 30.7 MCHC 33.8 RDW 13.5 Plt Count 204 MPV 9.4 Immature Gran % (Auto) 0.3 Neut % (Auto) 61.6 Lymph % (Auto) 18.4 L [place] % (Auto) 10.9 Eos % (Auto) 8.5 H Baso % (Auto) 0.3 Lymph # (Auto) 1.1 L [place] # (Auto) 0.6 Eos # (Auto) 0.5 H Baso # (Auto) 0.0 Abs Immat Gran (auto) 0.02 Absolute Neuts (auto) 3.5 Absolute Nucleated RBC 0.000 Nucleated RBC % (auto) 0.0 Sodium 147 H 146 H Potassium 3.9 3.8 Chloride 111 H 110 H Carbon Dioxide 26 23 Anion Gap 14 17 BUN 21 H 22 H Creatinine 1.86 H 1.93 H Estim Creat Clear Calc 64.8 62.4 Estimated GFR 40 38 Random Glucose 82 104 Fasting Glucose Calcium 8.8 D 9.2 Total Bilirubin Direct Bilirubin AST ALT Alkaline Phosphatase Total Protein Albumin TSH Carbamazepine Cleary 07/29/20 07/31/20 07/31/20 08:22 08:26 08:26 WBC RBC Hgb Hct MCV MCH MCHC RDW Plt Count MPV Immature Gran % (Auto) Neut % (Auto) Lymph % (Auto) [place] % (Auto) Eos % (Auto) Baso % (Auto) Lymph # (Auto) [place] # (Auto) Eos # (Auto) Baso # (Auto) Abs Immat Gran (auto) Absolute Neuts (auto) Absolute Nucleated RBC Nucleated RBC % (auto) Sodium 147 H 144 Potassium 3.9 4.3 Chloride 112 H 108 Carbon Dioxide 23 26 Anion Gap 16 14 BUN 16 18 H Creatinine 1.71 H 2.00 H Estim Creat Clear Calc 70.5 60.2 Estimated GFR 44 37 Random Glucose 105 94 Fasting Glucose Calcium 9.4 9.0 Total Bilirubin 0.7 Direct Bilirubin 0.3 AST 18 D ALT 28 Alkaline Phosphatase 54 Total Protein 6.5 Albumin 3.9 TSH Carbamazepine Cleary 07/31/20 08:26 WBC RBC Hgb Hct MCV MCH MCHC RDW Plt Count MPV Immature Gran % (Auto) Neut % (Auto) Lymph % (Auto) [place] % (Auto) Eos % (Auto) Baso % (Auto) Lymph # (Auto) [place] # (Auto) Eos # (Auto) Baso # (Auto) Abs Immat Gran (auto) Absolute Neuts (auto) Absolute Nucleated RBC Nucleated RBC % (auto) Sodium Potassium Chloride Carbon Dioxide Anion Gap BUN Creatinine Estim Creat Clear Calc Estimated GFR Random Glucose Fasting Glucose Calcium Total Bilirubin Direct Bilirubin AST ALT Alkaline Phosphatase Total Protein Albumin TSH Carbamazepine 6.1 Cleary Airway Mallampati Class: II TM Dist: >3cm Neck ROM: Full Assessment and Plan Assessment Anesthesia Assessment: Anesthesia Plan Discussed and Chart Reviewed Final Anesthetic Review NPO: Yes ASA Class: II Final Preanesthetic Review: No Changes in Pt Med Stat, Meds/Allgs Chart Reviewed, Consent Obtained/Reviewed and Anes Risks/Benef Reviewed Patient Risk: Low Procedure Risk: Low Assessment/Block/Sedation in SS: Assess/Block/Sedation-SS Anesthetic Plan Anesthetic Plan: GA Disposition: Standard PACU
[2020-08-01] MEDS: ARIPiprazole 30 MG TABLET PO (09:43)
--- NOTE | 2020-08-01 09:52 | P.PNPSI_ITS ---
Subjective Subjective Date of Service: 08/01/20 Reason For Visit: joleen Subjective Notes: Section 7 and Section 8 Interim History: The patient came back from ECT and he looked more awake and alert. Yesterday, he was grabbing staff and looked confused but he was eating more and he showered with assistance. Still catatonic-like but seems a little more verbal and oriented. Still severely impaired Medication Compliance: Yes Side effects from medications: No Attending Groups: No Review of Systems Review of Systems Yes Unobtainable due to mental status Mental Status Exam Mental Status Exam Patient Appearance: Disheveled (on hospital gowns) Patient Orientation: Person, Place, Time and Situation Level of Consciousness: Awake, Disoriented and Restless Patient Behavior: Guarded, Suspicious and Confused Mood Description: Calm and Apprehensive Affect Description: Constricted Patient Cognition Impaired: Yes Ability to Follow Directions: Poor Speech Pattern: Slurred Hallucinations: None Delusions: Not Present Thought Process: Incoherent Thought Content: positive for Loose Associations and positive for Incoherent Judgement: Poor Diagnostics Vital Signs (24Hr): Vital Signs - 24 hr 07/31/20 21:45 08/01/20 05:15 08/01/20 05:28 Temperature 97.9 F 97.7 F 97.7 F Pulse Rate 106 H 100 100 Respiratory Rate 18 18 Blood Pressure 121/78 147/85 H 147/85 H Pulse Oximetry 98 98 08/01/20 08:20 08/01/20 08:38 08/01/20 08:42 Temperature 98.2 F 100.4 F Pulse Rate 101 H 113 H 102 H Respiratory Rate 18 16 17 Blood Pressure 131/90 H 164/99 H 141/87 H Pulse Oximetry 95 97 99 08/01/20 08:47 08/01/20 08:53 08/01/20 09:07 Temperature Pulse Rate 96 92 91 Respiratory Rate 17 14 16 Blood Pressure 130/85 121/81 125/80 Pulse Oximetry 97 98 96 08/01/20 09:21 Temperature 98.6 F Pulse Rate 95 Respiratory Rate 16 Blood Pressure 114/72 Pulse Oximetry 94 Body Mass Index 30.2 Labs Results: 07/27/20 08:24 07/31/20 08:26 Labs: Laboratory Results - last 48 hr 07/31/20 07/31/20 07/31/20 08:26 08:26 08:26 Sodium 144 Potassium 4.3 Chloride 108 Carbon Dioxide 26 Anion Gap 14 BUN 18 H Creatinine 2.00 H Estim Creat Clear Calc 60.2 Estimated GFR 37 Random Glucose 94 Calcium 9.0 Total Bilirubin 0.7 Direct Bilirubin 0.3 AST 18 D ALT 28 Alkaline Phosphatase 54 Total Protein 6.5 Albumin 3.9 Carbamazepine 6.1 Imaging Radiology Impressions: ITS Impressions Foot X-Ray 07/20/20 15:03 IMPRESSION: No fracture seen. Calcaneal spurs and mild degenerative changes. Medications Medications Current Medications Generic Name Dose Route Start Last Admin Trade Name Freq PRN Reason Stop Dose Admin Acetaminophen 650 mg 07/18/20 15:30 Acetaminophen 325 Mg Tablet PO Q6H PRN Headache/Pain Mild Scale (1-3) Al Hydroxide/Mg Hydroxide 30 ml 07/18/20 15:30 Magnesium Hydrox/Alum Hydrox 30 Ml Oral.Susp PO Q6H PRN Heartburn/Nausea Aripiprazole 30 mg 07/22/20 09:00 08/01/20 09:43 Aripiprazole 30 Mg Tablet PO 30 mg DAILY CONRAD Administration Chlorpromazine HCl 100 mg 07/21/20 10:50 07/31/20 23:33 Chlorpromazine Hcl 100 Mg Tablet PO 100 mg RQ4H PRN Administration anxiety/restlessness Clotrimazole 1 appl 07/21/20 21:00 08/01/20 09:44 Clotrimazole 1 % Cream 15 Gm Tube TOPICAL Not Given BID [facility] Protocol Hydroxyzine HCl 25 mg 07/18/20 15:30 08/01/20 00:43 Hydroxyzine Hcl 25 Mg Tablet PO 25 mg BEDTIME PRN Administration Anxiety Lactated Ringer's 1,000 mls @ 20 mls/hr 08/01/20 08:45 08/01/20 09:43 Lr IVCONT Not Given .Q24H [facility] Magnesium Hydroxide 30 ml 07/18/20 15:30 Milk Of Magnesia 30 Ml Oral.Susp PO DAILY PRN Constipation Olanzapine 10 mg 07/28/20 15:00 08/01/20 09:42 Olanzapine Odt 10 Mg Tab.Rapdis TRANSLINGU 10 mg TID CONRAD Administration Olanzapine 10 mg 07/28/20 13:12 08/01/20 00:43 Olanzapine Odt 10 Mg Tab.Rapdis TRANSLINGU 10 mg DAILY PRN Administration Psychosis Trazodone HCl 150 mg 07/20/20 21:25 07/31/20 23:33 Trazodone Hcl 50 Mg Tablet PO 150 mg BEDTIME PRN Administration Insomnia Allergies Allergies Allergy/AdvReac Type Severity Reaction Status Date / Time haloperidol [From Haldol] Allergy Unknown Verified 07/22/20 03:38 Assessment & Plan Assessment & Plan (1) Bipolar 1 disorder, mixed, severe: Status: Acute Code(s): F31.63 - Bipolar disorder, current episode mixed, severe, without psychotic features Assessment and Plan: 1. Keep same treatment. 2. Stop Tegretol, re-start when he is better, at this time he is on 2 atypical antipsychotics. Greater than 50% of the session was spent on counseling and/or coordination of care Reason for contiued inpatient stay Substantial Risk for: harm to self, harm to others, inability to function, rapid decompensation and med/psych decompensation
[2020-08-01] MEDS: Milk of Magnesia 30 ML ORAL.SUSP PO (13:34)
[2020-08-01] MEDS: traZODone HCL 50 MG TABLET 150 MG PO (21:48)
[2020-08-01] MEDS: Clotrimazole 1 % Cream 15 GM TUBE 1 APPL TOPICAL (23:13)
--- NOTE | 2020-08-01 23:15 | PC.NURSE ---
SWELLING L LEG-PATIENT WAS ASSISTED IN CHANGING INTO JOHNNIES AND TO VOID ON TOILET. DURING CORPORATE INTERN IT WAS NOTED THAT PATIENT HAS A SIGNIFICANT AMOUNT OF SWELLING/REDNESS/BRUISING TO LEFT KNEE. AREA IS WARM TO TOUCH AND PATIENT COMPLAINED OF DISCOMFORT. ASSISTED WITH BRUSHING TEETH AND AMBULATED WELL BACK TO BED.
[2020-08-02] MEDS: OLANZapine ODT 10 MG TAB.RAPDIS TRANSLINGU ×5 (05:26→20:49)
[2020-08-02] MEDS: chlorproMAZINE HCl 100 MG TABLET PO ×5 (05:26→20:49)
[2020-08-02] MEDS: ARIPiprazole 30 MG TABLET PO (08:25)
[2020-08-02] MEDS: Clotrimazole 1 % Cream 15 GM TUBE 1 APPL TOPICAL (10:48)
--- NOTE | 2020-08-02 11:14 | HO.PSYCHPN ---
Subjective Subjective Date of Service: 08/02/20 Reason For Visit: joleen Subjective Notes: Section 7 and Section 8 Interim History: The patient was agitated today AM and needed PO PRN. He was desinhibited, grabbing staff at night. He probably has cellulitis on his right knee. Medication Compliance: Yes Side effects from medications: No Attending Groups: No Review of Systems Review of Systems Yes Unobtainable due to mental status Mental Status Exam Mental Status Exam Patient Appearance: Disheveled and Inappropriate Level of Consciousness: Awake and Restless Patient Behavior: Guarded Mood Description: Calm, Hostile and Apprehensive Affect Description: Blunted Patient Cognition Impaired: No Ability to Follow Directions: Good Speech Pattern: Clear Memory Description: Intact Hallucinations: None Thought Process: Incoherent and Illogical Thought Content: positive for Disoriented and positive for Poverty of Content Abnormal Motor Activity Signs and Symptoms: Agitation, Hyperactivity and Restlessness Judgement: Poor Diagnostics Vital Signs (24Hr): Vital Signs - 24 hr 08/01/20 22:01 Temperature 97.7 F Pulse Rate 76 Respiratory Rate 18 Blood Pressure 133/79 Pulse Oximetry 97 Body Mass Index 30.2 Labs Results: 07/27/20 08:24 07/31/20 08:26 Imaging Radiology Impressions: ITS Impressions Foot X-Ray 07/20/20 15:03 IMPRESSION: No fracture seen. Calcaneal spurs and mild degenerative changes. Medications Medications Current Medications Generic Name Dose Route Start Last Admin Trade Name Freq PRN Reason Stop Dose Admin Acetaminophen 650 mg 07/18/20 15:30 Acetaminophen 325 Mg Tablet PO Q6H PRN Headache/Pain Mild Scale (1-3) Al Hydroxide/Mg Hydroxide 30 ml 07/18/20 15:30 Magnesium Hydrox/Alum Hydrox 30 Ml Oral.Susp PO Q6H PRN Heartburn/Nausea Aripiprazole 30 mg 07/22/20 09:00 08/02/20 08:25 Aripiprazole 30 Mg Tablet PO 30 mg DAILY CONRAD Administration Chlorpromazine HCl 100 mg 07/21/20 10:50 08/02/20 05:26 Chlorpromazine Hcl 100 Mg Tablet PO 100 mg RQ4H PRN Administration anxiety/restlessness Clotrimazole 1 appl 07/21/20 21:00 08/02/20 10:48 Clotrimazole 1 % Cream 15 Gm Tube TOPICAL 1 appl BID CONRAD Administration Protocol Hydroxyzine HCl 25 mg 07/18/20 15:30 08/01/20 00:43 Hydroxyzine Hcl 25 Mg Tablet PO 25 mg BEDTIME PRN Administration Anxiety Lactated Ringer's 1,000 mls @ 20 mls/hr 08/01/20 08:45 08/02/20 10:47 Lr IVCONT Not Given .Q24H CONRAD Magnesium Hydroxide 30 ml 07/18/20 15:30 08/01/20 13:34 Milk Of Magnesia 30 Ml Oral.Susp PO 30 ml DAILY PRN Administration Constipation Olanzapine 10 mg 07/28/20 15:00 08/02/20 08:25 Olanzapine Odt 10 Mg Tab.Rapdis TRANSLINGU 10 mg TID CONRAD Administration Olanzapine 10 mg 07/28/20 13:12 08/02/20 05:26 Olanzapine Odt 10 Mg Tab.Rapdis TRANSLINGU 10 mg DAILY PRN Administration Psychosis Trazodone HCl 150 mg 07/20/20 21:25 08/01/20 21:48 Trazodone Hcl 50 Mg Tablet PO 150 mg BEDTIME PRN Administration Insomnia Allergies Allergies Allergy/AdvReac Type Severity Reaction Status Date / Time haloperidol [From Haldol] Allergy Unknown Verified 07/22/20 03:38 Assessment & Plan Assessment & Plan (1) Bipolar 1 disorder, mixed, severe: Status: Acute Code(s): F31.63 - Bipolar disorder, current episode mixed, severe, without psychotic features Assessment and Plan: Keep only on antipsychotics. ECT tomorrow AM Greater than 50% of the session was spent on counseling and/or coordination of care Reason for contiued inpatient stay Substantial Risk for: harm to self, harm to others, inability to function and rapid decompensation
--- NOTE | 2020-08-02 15:23 | PC.NURSE ---
pt difficult to understand but seems to be indicating pain to left knee, noted as redness and quesion slight edema, md NOTIFIED this morning and med consult called
[2020-08-02 18:00] VITALS: BP 107/92; PULSE 109; RESP 18; TEMP 36.7; O2SAT 95
--- NOTE | 2020-08-02 18:45 | PM.IMCN ---
History of Present Illness Data of Consult Service Date: 08/02/20 Requesting physician: Alexander Rodriguez Primary Care Provider: Aquiles Salgado MD [facility] Reason for consult: L knee swelling/redness Mr Fernandez is a 45 year-old man with bipolar 1 disorder admitted to since 07/18/20 and undergoing multiple rounds of ECT. He has a history of HTN and HLD. He reportedly spent the first few days of his hospitalization crawling around the unit on his hands and knees. Yesterday, he was noted to have rapidly progressing redness and swelling of the medial aspect of his left knee, around the patella. No drainage. No fever or chills. No vomiting. Due to disorganized thought process and disorientation, I am unable to obtain a reliable medical history or review of symptoms; as such, the history is reconstructed from the electronic medical record, which is limited given his psychiatric condition. [facility] Social History Household Members: Spouse Household Members Other:: Housing: Unknown / Unable to assess Do you presently have visiting nurse or other home services: No Smoking Status: Unknown if ever smoked Smoked in Last 30 Days: No Patient Interested in Nicotine Replacement: No Patient Given Instructions on How to Stop Smoking: No (N/A) Second Hand Smoke Exposure: No Use of substances other than those prescribed or required for medical reasons: No Substance Use Type Other:: No history of substance use per crisis evaluation Last Used Substance: Unknown Last Used Substance Other:: No substance use reported per crisis evaluation Currently Displaying Signs/Symptoms of Drug Intoxication Withdrawal: No Any prior treatment program specific to substance use: No Have you been hit, kicked, punched, or otherwise hurt by someone within the past year? If so, by whom?: No Do you feel safe in your current relationship?: Yes Is there a partner from a previous relationship who is making you feel unsafe now?: No Are you made to feel afraid or neglected: No Cultural Healthcare Practices: Taoism Advance Directives: No Advance Directives Information Provided: No Advance Directives on File: No Do you have thoughts of harming others: None Do you have a plan to hurt others: No Plan Recently lost weight without trying: No service: No Sexual orientation: Straight/Heterosexual Meds Allergies Allergy/AdvReac Type Severity Reaction Status Date / Time haloperidol [From Haldol] Allergy Unknown Verified 07/22/20 03:38 Active Medications: Current Medications Generic Name Dose Route Start Last Admin Trade Name Freq PRN Reason Stop Dose Admin Acetaminophen 650 mg 07/18/20 15:30 Acetaminophen 325 Mg Tablet PO Q6H PRN Headache/Pain Mild Scale (1-3) Al Hydroxide/Mg Hydroxide 30 ml 07/18/20 15:30 Magnesium Hydrox/Alum Hydrox 30 Ml Oral.Susp PO Q6H PRN Heartburn/Nausea Aripiprazole 30 mg 07/22/20 09:00 08/02/20 08:25 Aripiprazole 30 Mg Tablet PO 30 mg DAILY CONRAD Administration Chlorpromazine HCl 100 mg 07/21/20 10:50 08/02/20 16:31 Chlorpromazine Hcl 100 Mg Tablet PO 100 mg RQ4H PRN Administration anxiety/restlessness Clotrimazole 1 appl 07/21/20 21:00 08/02/20 10:48 Clotrimazole 1 % Cream 15 Gm Tube TOPICAL 1 appl BID CONRAD Administration Protocol Doxycycline Hyclate 100 mg 08/02/20 18:45 Doxycycline Hyclate 100 Mg Tablet PO Q12H CONRAD Hydroxyzine HCl 25 mg 07/18/20 15:30 08/01/20 00:43 Hydroxyzine Hcl 25 Mg Tablet PO 25 mg BEDTIME PRN Administration Anxiety Lactated Ringer's 1,000 mls @ 20 mls/hr 08/01/20 08:45 08/02/20 10:47 Lr IVCONT Not Given .Q24H CONRAD Magnesium Hydroxide 30 ml 07/18/20 15:30 08/01/20 13:34 Milk Of Magnesia 30 Ml Oral.Susp PO 30 ml DAILY PRN Administration Constipation Olanzapine 10 mg 07/28/20 15:00 08/02/20 14:55 Olanzapine Odt 10 Mg Tab.Rapdis TRANSLINGU 10 mg TID CONRAD Administration Olanzapine 10 mg 07/28/20 13:12 08/02/20 05:26 Olanzapine Odt 10 Mg Tab.Rapdis TRANSLINGU 10 mg DAILY PRN Administration Psychosis Trazodone HCl 150 mg 07/20/20 21:25 08/01/20 21:48 Trazodone Hcl 50 Mg Tablet PO 150 mg BEDTIME PRN Administration Insomnia Home Medications Medication Instructions Recorded Confirmed Last Taken Type Unobtainable 07/27/20 07/27/20 Unknown History Physical Exam Vital Signs and Narrative: Vital Signs: Last Vital Signs Temp 97.7 F 08/01/20 22:01 Pulse 76 08/01/20 22:01 Resp 18 08/01/20 22:01 BP 133/79 08/01/20 22:01 Pulse Ox 97 08/01/20 22:01 Body Mass Index 30.2 Gen: in no acute distress HEENT: sclera anicteric, moist mucus membranes Neck: supple Lungs: clear to auscultation bilaterally Heart: regular rate and rhythm, no murmurs Abd: soft, non-tender, non-distended Ext: no edema Skin: overlying the left patella, there is a well-demarcated 8 by 10 cm of erythema and induration with a quarter-sized fluctuant area in the middle of this; this is tender but not spontaneously draining. there are also some scaly annular erythematous lesions on the calves and shins bilatearlly consistent with tinea corporis Neuro: alert and oriented x3, no focal findings Psych: appropriate affect Results Labs CBC and Chem 7: 07/27/20 08:24 07/31/20 08:26 Labs: Laboratory Results - last 24 hr 07/27/20 07/27/20 08:24 08:24 MCV 90.8 MCH 30.7 MCHC 33.8 RDW 13.5 Plt Count 204 MPV 9.4 Immature Gran % (Auto) 0.3 Neut % (Auto) 61.6 Lymph % (Auto) 18.4 L [place] % (Auto) 10.9 Eos % (Auto) 8.5 H Baso % (Auto) 0.3 Lymph # (Auto) 1.1 L [place] # (Auto) 0.6 Eos # (Auto) 0.5 H Baso # (Auto) 0.0 Abs Immat Gran (auto) 0.02 Absolute Neuts (auto) 3.5 Absolute Nucleated RBC 0.000 Nucleated RBC % (auto) 0.0 Anion Gap 14 Estim Creat Clear Calc 64.8 Estimated GFR 40 Random Glucose 82 Calcium 8.8 D Assessment and Plan (1) Bipolar 1 disorder, mixed, severe: Status: Acute 45 year-old man with bipolar 1 admitted to on 07/18/20 with disorganized joleen, undergoing ECT, who has developed a purulent cellulits overlying the left knee # purulent cellulitis - check BCx, CRP, CBCd. consult surgery for I+D and wound culture. will give oral doxycycline. # renal insufficiency - unknown baseline creatinine. recheck BMP as well as urine studies and renal US # tinea corporis - clotrimazole cream # bipolar disorder - medications and ECT as per psychiatry team Thank you for this consult. We will follow the patient along with you.
[2020-08-02] MEDS: traZODone HCL 50 MG TABLET 150 MG PO (20:49)
[2020-08-03] VITALS (12 sets, daily range): BP systolic 113–177; BP diastolic 69–107; PULSE 102–137; RESP 18–22; TEMP 36.3–37.4; O2SAT 94–99
--- NOTE | 2020-08-03 08:44 | MHC.SHP ---
Pre-Procedural Eval Section A The patient is an INPATIENT: Yes Changes since office visit: No Cold of Flu in the past 2 weeks, No New Medical Problems and No Changes in Medication The History & Physical has been completed within 30 days and I have reviewed it.: Yes Section B Chief Complaint: joleen Allergies: Allergies Allergy/AdvReac Type Severity Reaction Status Date / Time haloperidol [From Haldol] Allergy Unknown Verified 07/22/20 03:38 Plan I have reviewed the history and physical and performed a pertinent physical examination on my patient. No changes have occurred unless specified.
--- NOTE | 2020-08-03 08:53 | HO.ANESPROP2 ---
[facility] Active Problems Active Problems: All Active Problems (Updated 08/02/20 @ 18:49 by Morgan Gao MD) Hyperlipidemia (Acute) Hypertension (Acute) Bipolar 1 disorder, mixed, severe (Acute) Social History Social History Household Members: Spouse Household Members Other:: Housing: Unknown / Unable to assess Do you presently have visiting nurse or other home services: No Smoking Status: Unknown if ever smoked Smoked in Last 30 Days: No Patient Interested in Nicotine Replacement: No Patient Given Instructions on How to Stop Smoking: No (N/A) Second Hand Smoke Exposure: No Use of substances other than those prescribed or required for medical reasons: No Substance Use Type Other:: No history of substance use per crisis evaluation Last Used Substance: Unknown Last Used Substance Other:: No substance use reported per crisis evaluation Currently Displaying Signs/Symptoms of Drug Intoxication Withdrawal: No Any prior treatment program specific to substance use: No Have you been hit, kicked, punched, or otherwise hurt by someone within the past year? If so, by whom?: No Do you feel safe in your current relationship?: Yes Is there a partner from a previous relationship who is making you feel unsafe now?: No Are you made to feel afraid or neglected: No Cultural Healthcare Practices: [employer] Advance Directives: No Advance Directives Information Provided: No Advance Directives on File: No Do you have thoughts of harming others: None Do you have a plan to hurt others: No Plan Recently lost weight without trying: No service: No Sexual orientation: Straight/Heterosexual Meds Allergies Allergy/AdvReac Type Severity Reaction Status Date / Time haloperidol [From Haldol] Allergy Unknown Verified 07/22/20 03:38 Active Medications: Current Medications Generic Name Dose Route Start Last Admin Trade Name Freq PRN Reason Stop Dose Admin Acetaminophen 650 mg 07/18/20 15:30 Acetaminophen 325 Mg Tablet PO Q6H PRN Headache/Pain Mild Scale (1-3) Al Hydroxide/Mg Hydroxide 30 ml 07/18/20 15:30 Magnesium Hydrox/Alum Hydrox 30 Ml Oral.Susp PO Q6H PRN Heartburn/Nausea Aripiprazole 30 mg 07/22/20 09:00 08/02/20 08:25 Aripiprazole 30 Mg Tablet PO 30 mg DAILY CONRAD Administration Chlorpromazine HCl 100 mg 07/21/20 10:50 08/02/20 20:49 Chlorpromazine Hcl 100 Mg Tablet PO 100 mg RQ4H PRN Administration anxiety/restlessness Clotrimazole 1 appl 07/21/20 21:00 08/02/20 22:01 Clotrimazole 1 % Cream 15 Gm Tube TOPICAL Not Given BID [facility] Protocol Doxycycline Hyclate 100 mg 08/02/20 18:45 08/03/20 05:59 Doxycycline Hyclate 100 Mg Tablet PO 100 mg Q12H CONRAD Administration Hydroxyzine HCl 25 mg 07/18/20 15:30 08/01/20 00:43 Hydroxyzine Hcl 25 Mg Tablet PO 25 mg BEDTIME PRN Administration Anxiety Lactated Ringer's 1,000 mls @ 20 mls/hr 08/01/20 08:45 08/02/20 10:47 Lr IVCONT Not Given .Q24H CONRAD Magnesium Hydroxide 30 ml 07/18/20 15:30 08/01/20 13:34 Milk Of Magnesia 30 Ml Oral.Susp PO 30 ml DAILY PRN Administration Constipation Olanzapine 10 mg 07/28/20 15:00 08/02/20 20:49 Olanzapine Odt 10 Mg Tab.Rapdis TRANSLINGU 10 mg TID CONRAD Administration Olanzapine 10 mg 07/28/20 13:12 08/02/20 05:26 Olanzapine Odt 10 Mg Tab.Rapdis TRANSLINGU 10 mg DAILY PRN Administration Psychosis Trazodone HCl 150 mg 07/20/20 21:25 08/02/20 20:49 Trazodone Hcl 50 Mg Tablet PO 150 mg BEDTIME PRN Administration Insomnia Home Medications Medication Instructions Recorded Confirmed Last Taken Type Unobtainable 07/27/20 07/27/20 Unknown History Exam Exam Date and Time: August 03, 2020 0853 Height,Weight and Vital Signs: Height 6 ft 1 in Weight 103.9 kg Last Vital Signs Temp 97.8 F 08/03/20 06:51 Pulse 124 H 08/03/20 06:51 Resp 20 08/03/20 06:51 BP 133/69 08/03/20 06:51 Pulse Ox 97 08/03/20 06:51 Pertinent Lab Results Pertinent Lab Results: Laboratory Tests 07/24/20 07/24/20 07/25/20 08:19 08:19 08:11 WBC RBC Hgb Hct MCV MCH MCHC RDW Plt Count MPV Immature Gran % (Auto) Neut % (Auto) Lymph % (Auto) [place] % (Auto) Eos % (Auto) Baso % (Auto) Lymph # (Auto) [place] # (Auto) Eos # (Auto) Baso # (Auto) Abs Immat Gran (auto) Absolute Neuts (auto) Absolute Nucleated RBC Nucleated RBC % (auto) Sodium 145 148 H Potassium 4.0 4.0 Chloride 108 111 H Carbon Dioxide 23 27 Anion Gap 18 14 BUN 17 H 15 Creatinine 1.63 H 1.67 H Estim Creat Clear Calc 73.9 72.2 Estimated GFR 46 45 Random Glucose 91 Fasting Glucose 93 Calcium 9.3 9.7 Total Bilirubin 0.9 Direct Bilirubin AST 45 H ALT 59 H Alkaline Phosphatase 48 Total Protein 7.3 Albumin 4.4 TSH 0.95 Carbamazepine [place] 0.36 L 07/27/20 07/27/20 07/28/20 08:24 08:24 07:51 WBC 5.8 RBC 3.91 L Hgb 12.0 L Hct 35.5 L MCV 90.8 MCH 30.7 MCHC 33.8 RDW 13.5 Plt Count 204 MPV 9.4 Immature Gran % (Auto) 0.3 Neut % (Auto) 61.6 Lymph % (Auto) 18.4 L [place] % (Auto) 10.9 Eos % (Auto) 8.5 H Baso % (Auto) 0.3 Lymph # (Auto) 1.1 L [place] # (Auto) 0.6 Eos # (Auto) 0.5 H Baso # (Auto) 0.0 Abs Immat Gran (auto) 0.02 Absolute Neuts (auto) 3.5 Absolute Nucleated RBC 0.000 Nucleated RBC % (auto) 0.0 Sodium 147 H 146 H Potassium 3.9 3.8 Chloride 111 H 110 H Carbon Dioxide 26 23 Anion Gap 14 17 BUN 21 H 22 H Creatinine 1.86 H 1.93 H Estim Creat Clear Calc 64.8 62.4 Estimated GFR 40 38 Random Glucose 82 104 Fasting Glucose Calcium 8.8 D 9.2 Total Bilirubin Direct Bilirubin AST ALT Alkaline Phosphatase Total Protein Albumin TSH Carbamazepine [place] 07/29/20 07/31/20 07/31/20 08:22 08:26 08:26 WBC RBC Hgb Hct MCV MCH MCHC RDW Plt Count MPV Immature Gran % (Auto) Neut % (Auto) Lymph % (Auto) [place] % (Auto) Eos % (Auto) Baso % (Auto) Lymph # (Auto) [place] # (Auto) Eos # (Auto) Baso # (Auto) Abs Immat Gran (auto) Absolute Neuts (auto) Absolute Nucleated RBC Nucleated RBC % (auto) Sodium 147 H 144 Potassium 3.9 4.3 Chloride 112 H 108 Carbon Dioxide 23 26 Anion Gap 16 14 BUN 16 18 H Creatinine 1.71 H 2.00 H Estim Creat Clear Calc 70.5 60.2 Estimated GFR 44 37 Random Glucose 105 94 Fasting Glucose Calcium 9.4 9.0 Total Bilirubin 0.7 Direct Bilirubin 0.3 AST 18 D ALT 28 Alkaline Phosphatase 54 Total Protein 6.5 Albumin 3.9 TSH Carbamazepine [place] 07/31/20 08:26 WBC RBC Hgb Hct MCV MCH MCHC RDW Plt Count MPV Immature Gran % (Auto) Neut % (Auto) Lymph % (Auto) [place] % (Auto) Eos % (Auto) Baso % (Auto) Lymph # (Auto) [place] # (Auto) Eos # (Auto) Baso # (Auto) Abs Immat Gran (auto) Absolute Neuts (auto) Absolute Nucleated RBC Nucleated RBC % (auto) Sodium Potassium Chloride Carbon Dioxide Anion Gap BUN Creatinine Estim Creat Clear Calc Estimated GFR Random Glucose Fasting Glucose Calcium Total Bilirubin Direct Bilirubin AST ALT Alkaline Phosphatase Total Protein Albumin TSH Carbamazepine 6.1 [place] Airway Mallampati Class: II TM Dist: >3cm Neck ROM: Full Assessment and Plan Assessment Anesthesia Assessment: Anesthesia Plan Discussed and Chart Reviewed Final Anesthetic Review NPO: Yes ASA Class: II Final Preanesthetic Review: No Changes in Pt Med Stat, Meds/Allgs Chart Reviewed, Consent Obtained/Reviewed and Anes Risks/Benef Reviewed Patient Risk: Low Procedure Risk: Low Assessment/Block/Sedation in SS: Assess/Block/Sedation-SS Anesthetic Plan Anesthetic Plan: GA Disposition: Standard PACU
--- NOTE | 2020-08-03 09:08 | HO.ECTPROC ---
ECT Procedure Note Diagnosis/Treatment Date of Service: 08/03/20 Diagnosis: Bipolar disorder Previous ECT Date: 08/01/20 Current Treatment Number: 4 Treatment: Series Interval Clinical Notes: The patient remains disorganized and desinhibit on 1:1, slightly better since the ECT ECT Settings Device: THYMATRON DGx Electrode Placement: Bitemporal Program/Pulse Width: 0.50 Energy Percent: 100 Seizure Duration By EEG (in seconds): 33 Medications Administration General Anesthetic: Etomidate (14) Muscle Relaxant: Succinylcholine Ancillary Medications Analgesics: Torodol - Pre ECT and Other (PROPOFOL MIDAZOLAM) Airway Management Airway Management: Bag Mask Ventilation Treatment Recommendations No Changes Recommended: No change Pt Tolerated Procedure w/o Issue: Yes
[2020-08-03 09:26] LABS: MANUAL DIFF FLAG NO
[2020-08-03 09:28] LABS: Basophils Percent Auto 0.3 % (0-2); Eosinophils Absolute Auto 0.4 X10*3/uL (0.0-0.4); Eosinophils Percent Auto 5.6 % (0-4); Hematocrit 39.7 % (42-52); Hemoglobin 13.1 g/dl (14.0-18.0); Imm Gran Abs Auto 0.05 X10*3/uL (0.00-0.03); Imm Gran Pct Auto 0.8 % (0.0-0.4); Lymphocytes Absolute Auto 1.9 X10*3/uL (1.2-4.9); Lymphocytes Percent Auto 30.2 % (20-40); Mean Corpuscular Volume 91.1 fL (80-98); Mean Platelet Volume 9.5 fL (9.4-12.4); Monocytes Absolute Auto 0.7 X10*3/uL (0.1-1.2); Monocytes Percent Auto 11.2 % (2-11); Neutrophils Absolute Auto 3.3 X10*3/uL (2.0-8.3); Neutrophils Percent Auto 51.9 % (45-73); Platelet Count 265 X10*3/uL (160-400); Red Blood Count 4.36 X10*6/uL (4.60-5.80); Red Cell Distribution Width 12.8 % (11.0-16.0); White Blood Count 6.4 X10*3/uL (4.8-10.8)
--- NOTE | 2020-08-03 09:51 | P.PNIM_ITS ---
Subjective Subjective Date of Service: 08/03/20 Interval History: Patient examined in PACU after ECT. Unable to provide ROS. Physical Exam 2 Vital Signs: Vital Signs: Last Vital Signs Temp 99.4 F 08/03/20 09:11 Pulse 119 H 08/03/20 09:27 Resp 20 08/03/20 09:27 BP 151/86 H 08/03/20 09:27 Pulse Ox 94 08/03/20 09:27 Body Mass Index 30.2 Gen: in no acute distress Skin: Erythema, warmth, and induration around right knee decreased from yesterday; fluctuance much improved. Multiple scaly target lesions on legs consistent with tinea corporis Objective Data Current Medications Generic Name Dose Route Start Last Admin Trade Name Freq PRN Reason Stop Dose Admin Acetaminophen 650 mg 07/18/20 15:30 Acetaminophen 325 Mg Tablet PO Q6H PRN Headache/Pain Mild Scale (1-3) Al Hydroxide/Mg Hydroxide 30 ml 07/18/20 15:30 Magnesium Hydrox/Alum Hydrox 30 Ml Oral.Susp PO Q6H PRN Heartburn/Nausea Aripiprazole 30 mg 07/22/20 09:00 08/02/20 08:25 Aripiprazole 30 Mg Tablet PO 30 mg DAILY CONRAD Administration Chlorpromazine HCl 100 mg 07/21/20 10:50 08/02/20 20:49 Chlorpromazine Hcl 100 Mg Tablet PO 100 mg RQ4H PRN Administration anxiety/restlessness Clotrimazole 1 appl 07/21/20 21:00 08/02/20 22:01 Clotrimazole 1 % Cream 15 Gm Tube TOPICAL Not Given BID [facility] Protocol Doxycycline Hyclate 100 mg 08/02/20 18:45 08/03/20 05:59 Doxycycline Hyclate 100 Mg Tablet PO 100 mg Q12H CONRAD Administration Hydroxyzine HCl 25 mg 07/18/20 15:30 08/01/20 00:43 Hydroxyzine Hcl 25 Mg Tablet PO 25 mg BEDTIME PRN Administration Anxiety Lactated Ringer's 1,000 mls @ 20 mls/hr 08/01/20 08:45 08/02/20 10:47 Lr IVCONT Not Given .Q24H CONRAD Lactated Ringer's 1,000 mls @ 20 mls/hr 08/03/20 09:00 Lr IVCONT .Q24H CONRAD Magnesium Hydroxide 30 ml 07/18/20 15:30 08/01/20 13:34 Milk Of Magnesia 30 Ml Oral.Susp PO 30 ml DAILY PRN Administration Constipation Olanzapine 10 mg 07/28/20 15:00 08/02/20 20:49 Olanzapine Odt 10 Mg Tab.Rapdis TRANSLINGU 10 mg TID CONRAD Administration Olanzapine 10 mg 07/28/20 13:12 08/02/20 05:26 Olanzapine Odt 10 Mg Tab.Rapdis TRANSLINGU 10 mg DAILY PRN Administration Psychosis Trazodone HCl 150 mg 07/20/20 21:25 08/02/20 20:49 Trazodone Hcl 50 Mg Tablet PO 150 mg BEDTIME PRN Administration Insomnia Labs CBC & Chem 7: 08/03/20 09:03 07/31/20 08:26 Assessment and Plan (1) Bipolar 1 disorder, mixed, severe: Status: Acute Assessment and Plan: 45 year-old man with bipolar 1 admitted to on 07/18/20 with disorganized joleen, undergoing ECT, who has developed a purulent cellulits overlying the left knee # purulent cellulitis - check CBCd, CRP. examined with surgery and the fluctuance has improved with antibiotics alone, so we do not think I+D is needed. oral doxycycline d#2 # renal insufficiency - unknown baseline creatinine. check BMP as well as urine studies and renal US # tinea corporis - continue clotrimazole cream # bipolar disorder - medications and ECT as per psychiatry team
[2020-08-03 10:02] LABS: Anion Gap 19 (12-20); Blood Urea Nitrogen 16 mg/dL (9-16); C Reactive Protein 8.22 mg/dL (< or = 0.50); Calcium 9.2 mg/dL (8.4-10.2); Carbon Dioxide 23 mmol/L (22-29); Chloride 107 mmol/L (96-108); Creatinine Clr Calc Pharmacy 65.1; Estimated Glomerular Filt Rate 40; Glucose Random 103 mg/dL (60-115); Potassium 4.8 mmol/L (3.3-5.1); Sodium 144 mmol/L (135-145)
--- NOTE | 2020-08-03 10:04 | PM.CNGS ---
History of Present Illness Consult details Consult date: 08/03/20 Requesting physician: Morgan Gao Narrative: 45-year-old male patient presenting with bipolar disorder currently an inpatient noted to have an area of fluctuance in his left knee on recent examination. Patient apparently was crawling on the floor on his knees resulting in this injury. Patient has no prior history of surgery in this location. He was subsequently started on antibiotics. Apparently there is an improvement in the area of redness today compared to yesterday. Patient is examined in the PACU following his recent ECT. Review of Systems Review of Systems: Yes Other (Unable to obtain due to anesthetic in PACU) [facility] Social History Social History Household Members: Spouse Household Members Other:: Housing: Unknown / Unable to assess Do you presently have visiting nurse or other home services: No Smoking Status: Unknown if ever smoked Smoked in Last 30 Days: No Patient Interested in Nicotine Replacement: No Patient Given Instructions on How to Stop Smoking: No (N/A) Second Hand Smoke Exposure: No Use of substances other than those prescribed or required for medical reasons: No Substance Use Type Other:: No history of substance use per crisis evaluation Last Used Substance: Unknown Last Used Substance Other:: No substance use reported per crisis evaluation Currently Displaying Signs/Symptoms of Drug Intoxication Withdrawal: No Any prior treatment program specific to substance use: No Have you been hit, kicked, punched, or otherwise hurt by someone within the past year? If so, by whom?: No Do you feel safe in your current relationship?: Yes Is there a partner from a previous relationship who is making you feel unsafe now?: No Are you made to feel afraid or neglected: No Cultural Healthcare Practices: Buddhism Advance Directives: No Advance Directives Information Provided: No Advance Directives on File: No Do you have thoughts of harming others: None Do you have a plan to hurt others: No Plan Recently lost weight without trying: No service: No Sexual orientation: Straight/Heterosexual Meds Allergies Allergy/AdvReac Type Severity Reaction Status Date / Time haloperidol [From Haldol] Allergy Unknown Verified 07/22/20 03:38 Active Medications: Current Medications Generic Name Dose Route Start Last Admin Trade Name Freq PRN Reason Stop Dose Admin Acetaminophen 650 mg 07/18/20 15:30 Acetaminophen 325 Mg Tablet PO Q6H PRN Headache/Pain Mild Scale (1-3) Al Hydroxide/Mg Hydroxide 30 ml 07/18/20 15:30 Magnesium Hydrox/Alum Hydrox 30 Ml Oral.Susp PO Q6H PRN Heartburn/Nausea Aripiprazole 30 mg 07/22/20 09:00 08/02/20 08:25 Aripiprazole 30 Mg Tablet PO 30 mg DAILY CONRAD Administration Chlorpromazine HCl 100 mg 07/21/20 10:50 08/02/20 20:49 Chlorpromazine Hcl 100 Mg Tablet PO 100 mg RQ4H PRN Administration anxiety/restlessness Clotrimazole 1 appl 07/21/20 21:00 08/02/20 22:01 Clotrimazole 1 % Cream 15 Gm Tube TOPICAL Not Given BID [facility] Protocol Doxycycline Hyclate 100 mg 08/02/20 18:45 08/03/20 05:59 Doxycycline Hyclate 100 Mg Tablet PO 100 mg Q12H CONRAD Administration Hydroxyzine HCl 25 mg 07/18/20 15:30 08/01/20 00:43 Hydroxyzine Hcl 25 Mg Tablet PO 25 mg BEDTIME PRN Administration Anxiety Lactated Ringer's 1,000 mls @ 20 mls/hr 08/01/20 08:45 08/02/20 10:47 Lr IVCONT Not Given .Q24H CONRAD Lactated Ringer's 1,000 mls @ 20 mls/hr 08/03/20 09:00 Lr IVCONT .Q24H CONRAD Magnesium Hydroxide 30 ml 07/18/20 15:30 08/01/20 13:34 Milk Of Magnesia 30 Ml Oral.Susp PO 30 ml DAILY PRN Administration Constipation Olanzapine 10 mg 07/28/20 15:00 08/02/20 20:49 Olanzapine Odt 10 Mg Tab.Rapdis TRANSLINGU 10 mg TID CONRAD Administration Olanzapine 10 mg 07/28/20 13:12 08/02/20 05:26 Olanzapine Odt 10 Mg Tab.Rapdis TRANSLINGU 10 mg DAILY PRN Administration Psychosis Trazodone HCl 150 mg 07/20/20 21:25 08/02/20 20:49 Trazodone Hcl 50 Mg Tablet PO 150 mg BEDTIME PRN Administration Insomnia Home Medications Medication Instructions Recorded Confirmed Last Taken Type Unobtainable 07/27/20 07/27/20 Unknown History Physical Exam Vital Signs: Vital Signs: Last Vital Signs Temp 99.4 F 08/03/20 09:11 Pulse 119 H 08/03/20 09:27 Resp 20 08/03/20 09:27 BP 151/86 H 08/03/20 09:27 Pulse Ox 94 08/03/20 09:27 Body Mass Index 30.2 Const: Other: Patient is sedated following recent procedure Resp: Effort & Inspection: normal respiratory effort, no cough and not tachypneic Cardio: Jugular venous distension: no JVD Rate: regular rate Rhythm: regular rhythm Skin: Other: 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 No fluctuance is appreciated to my examination. There is ring worm surrounding the extremity. No ulceration or bleeding is appreciated. Knee images: 1. Results Labs Result diagrams: 08/03/20 09:03 08/03/20 09:03 Labs: Abnormal lab results 08/03/20 08/03/20 Range/Units 09:03 09:03 RBC 4.36 L (4.60-5.80) X10*6/uL Hgb 13.1 L (14.0-18.0) g/dl Hct 39.7 L (42-52) % Immature Gran % (Auto) 0.8 H (0.0-0.4) % [place] % (Auto) 11.2 H (2-11) % Eos % (Auto) 5.6 H (0-4) % Abs Immat Gran (auto) 0.05 H (0.00-0.03) X10*3/uL Creatinine 1.85 H (0.5-1.4) mg/dL C-Reactive Protein 8.22 H (< or = 0.50) mg/dL Short CBC 08/03/20 Range/Units 09:03 WBC 6.4 (4.8-10.8) X10*3/uL Hgb 13.1 L (14.0-18.0) g/dl Hct 39.7 L (42-52) % Plt Count 265 D (160-400) X10*3/uL BMP 08/03/20 09:03 Sodium 144 Potassium 4.8 Chloride 107 Carbon Dioxide 23 BUN 16 Creatinine 1.85 H Calcium 9.2 All other labs normal. Assessment and Plan (1) Cellulitis and abscess of left leg: Status: Acute 45-year-old male patient presenting with an area of redness in the left lower extremity. Surgical consultation requested for possible incision and drainage. Examination today reveals improvement in the area of erythema with no current fluctuance. No surgical intervention is recommended at this time. Continue antibiotics as previously prescribed.
[2020-08-03] MEDS: ARIPiprazole 30 MG TABLET PO (10:54)
[2020-08-03] MEDS: Lactated Ringers 1,000 ML 20 ML IVCONT (10:55)
[2020-08-03] MEDS: OLANZapine ODT 10 MG TAB.RAPDIS TRANSLINGU ×3 (10:55→20:34)
[2020-08-03] MEDS: Clotrimazole 1 % Cream 15 GM TUBE 1 APPL TOPICAL (10:56)
--- NOTE | 2020-08-03 15:09 | P.PNPSI_ITS ---
Subjective Subjective Date of Service: 08/03/20 Reason For Visit: joleen Subjective Notes: Section 7 and Section 8 Interim History: The patient remains disorganized but after ECT, he looks more oriented, still agitated at times Medication Compliance: Yes Side effects from medications: No Attending Groups: No Review of Systems Review of Systems Yes Unobtainable due to mental status Mental Status Exam Mental Status Exam Patient Appearance: Disheveled Level of Consciousness: Awake and Restless Patient Behavior: Restless and Invasion - Personal Space Mood Description: Labile Affect Description: Labile Ability to Follow Directions: Poor Speech Pattern: Clear Thought Process: Disoriented Thought Content: positive for Poverty of Content Abnormal Motor Activity Signs and Symptoms: Agitation and Hyperactivity Judgement: Poor Diagnostics Vital Signs (24Hr): Vital Signs - 24 hr 08/02/20 18:00 08/03/20 06:51 08/03/20 08:47 Temperature 98.1 F 97.8 F 97.8 F Pulse Rate 109 H 124 H 137 H Respiratory Rate 18 20 20 Blood Pressure 107/92 H 133/69 113/92 H Pulse Oximetry 95 97 96 08/03/20 09:11 08/03/20 09:16 08/03/20 09:21 Temperature 99.4 F Pulse Rate 118 H 116 H 115 H Respiratory Rate 20 22 H 20 Blood Pressure 177/94 H 157/107 H 147/100 H Pulse Oximetry 96 95 96 08/03/20 09:27 08/03/20 09:42 08/03/20 09:57 Temperature Pulse Rate 119 H 108 H 106 H Respiratory Rate 20 18 20 Blood Pressure 151/86 H 143/85 H 142/85 H Pulse Oximetry 94 95 94 08/03/20 10:09 08/03/20 11:30 08/03/20 11:31 Temperature 99.0 F 97.6 F Pulse Rate 102 H 107 H 107 H Respiratory Rate 18 20 Blood Pressure 143/81 H 149/89 H 149/89 H Pulse Oximetry 95 99 Body Mass Index 30.2 Labs Results: 08/03/20 09:03 08/03/20 09:03 Labs: Laboratory Results - last 48 hr 08/03/20 08/03/20 09:03 09:03 WBC 6.4 RBC 4.36 L Hgb 13.1 L Hct 39.7 L MCV 91.1 MCH 30.0 MCHC 33.0 RDW 12.8 Plt Count 265 D MPV 9.5 Immature Gran % (Auto) 0.8 H Neut % (Auto) 51.9 Lymph % (Auto) 30.2 [place] % (Auto) 11.2 H Eos % (Auto) 5.6 H Baso % (Auto) 0.3 Lymph # (Auto) 1.9 [place] # (Auto) 0.7 Eos # (Auto) 0.4 Baso # (Auto) 0.0 Abs Immat Gran (auto) 0.05 H Absolute Neuts (auto) 3.3 Absolute Nucleated RBC 0.000 Nucleated RBC % (auto) 0.0 Sodium 144 Potassium 4.8 Chloride 107 Carbon Dioxide 23 Anion Gap 19 BUN 16 Creatinine 1.85 H Estim Creat Clear Calc 65.1 Estimated GFR 40 Random Glucose 103 Calcium 9.2 C-Reactive Protein 8.22 H Imaging Radiology Impressions: ITS Impressions Foot X-Ray 07/20/20 15:03 IMPRESSION: No fracture seen. Calcaneal spurs and mild degenerative changes. Medications Medications Current Medications Generic Name Dose Route Start Last Admin Trade Name Freq PRN Reason Stop Dose Admin Acetaminophen 650 mg 07/18/20 15:30 Acetaminophen 325 Mg Tablet PO Q6H PRN Headache/Pain Mild Scale (1-3) Al Hydroxide/Mg Hydroxide 30 ml 07/18/20 15:30 Magnesium Hydrox/Alum Hydrox 30 Ml Oral.Susp PO Q6H PRN Heartburn/Nausea Aripiprazole 30 mg 07/22/20 09:00 08/03/20 10:54 Aripiprazole 30 Mg Tablet PO 30 mg DAILY CONRAD Administration Chlorpromazine HCl 100 mg 07/21/20 10:50 08/02/20 20:49 Chlorpromazine Hcl 100 Mg Tablet PO 100 mg RQ4H PRN Administration anxiety/restlessness Clotrimazole 1 appl 07/21/20 21:00 08/03/20 10:56 Clotrimazole 1 % Cream 15 Gm Tube TOPICAL 1 appl BID CONRAD Administration Protocol Doxycycline Hyclate 100 mg 08/02/20 18:45 08/03/20 05:59 Doxycycline Hyclate 100 Mg Tablet PO 100 mg Q12H CONRAD Administration Hydroxyzine HCl 25 mg 07/18/20 15:30 08/01/20 00:43 Hydroxyzine Hcl 25 Mg Tablet PO 25 mg BEDTIME PRN Administration Anxiety Lactated Ringer's 1,000 mls @ 20 mls/hr 08/01/20 08:45 08/03/20 10:58 Lr IVCONT Not Given .Q24H CONRAD Lactated Ringer's 1,000 mls @ 20 mls/hr 08/03/20 09:00 08/03/20 10:55 Lr IVCONT 20 mls/hr .Q24H CONRAD Administration Magnesium Hydroxide 30 ml 07/18/20 15:30 08/01/20 13:34 Milk Of Magnesia 30 Ml Oral.Susp PO 30 ml DAILY PRN Administration Constipation Olanzapine 10 mg 07/28/20 15:00 08/03/20 14:59 Olanzapine Odt 10 Mg Tab.Rapdis TRANSLINGU 10 mg TID CONRAD Administration Olanzapine 10 mg 07/28/20 13:12 08/02/20 05:26 Olanzapine Odt 10 Mg Tab.Rapdis TRANSLINGU 10 mg DAILY PRN Administration Psychosis Trazodone HCl 150 mg 07/20/20 21:25 08/02/20 20:49 Trazodone Hcl 50 Mg Tablet PO 150 mg BEDTIME PRN Administration Insomnia Allergies Allergies Allergy/AdvReac Type Severity Reaction Status Date / Time haloperidol [From Haldol] Allergy Unknown Verified 07/22/20 03:38 Assessment & Plan Assessment & Plan (1) Cellulitis and abscess of left leg: Status: Acute Code(s): L03.116 - Cellulitis of left lower limb; L02.416 - Cutaneous abscess of left lower limb Assessment and Plan: 45-year-old male patient presenting with an area of redness in the left lower extremity. Surgical consultation requested for possible incision and drainage. Examination today reveals improvement in the area of erythema with no current fluctuance. No surgical intervention is recommended at this time. Continue antibiotics as previously prescribed. (2) Bipolar 1 disorder, mixed, severe: Status: Acute Code(s): F31.63 - Bipolar disorder, current episode mixed, severe, without psychotic features Assessment and Plan: Keep same treatment Greater than 50% of the session was spent on counseling and/or coordination of care Reason for contiued inpatient stay Substantial Risk for: harm to self, harm to others, inability to function and me d/psych decompensation
[2020-08-03] MEDS: traZODone HCL 50 MG TABLET 150 MG PO (20:34)
[2020-08-04] MEDS: OLANZapine ODT 10 MG TAB.RAPDIS TRANSLINGU ×4 (08:23→19:48)
[2020-08-04] MEDS: ARIPiprazole 30 MG TABLET PO (08:23)
[2020-08-04] MEDS: chlorproMAZINE HCl 100 MG TABLET PO ×2 (10:01→16:49)
[2020-08-04 12:19] VITALS: BP 111/71; PULSE 133; RESP 18; TEMP 36.4; O2SAT 97
--- NOTE | 2020-08-04 13:32 | P.PNIM_ITS ---
Subjective Subjective Date of Service: 08/04/20 Interval History: Pt unable to give history due to disorganized thought process Physical Exam Vital Signs: Vital Signs: Last Vital Signs Temp 97.6 F 08/04/20 12:19 Pulse 133 H 08/04/20 12:19 Resp 18 08/04/20 12:19 BP 111/71 08/04/20 12:19 Pulse Ox 97 08/04/20 12:19 Body Mass Index 30.2 Gen: in no acute distress Skin: continued resolution of erythema and induration around the left knee; no fluctuant areas; t ringworm lesions on legs Objective Data Current Medications Generic Name Dose Route Start Last Admin Trade Name Freq PRN Reason Stop Dose Admin Acetaminophen 650 mg 07/18/20 15:30 Acetaminophen 325 Mg Tablet PO Q6H PRN Headache/Pain Mild Scale (1-3) Al Hydroxide/Mg Hydroxide 30 ml 07/18/20 15:30 Magnesium Hydrox/Alum Hydrox 30 Ml Oral.Susp PO Q6H PRN Heartburn/Nausea Aripiprazole 30 mg 07/22/20 09:00 08/04/20 08:23 Aripiprazole 30 Mg Tablet PO 30 mg DAILY CONRAD Administration Chlorpromazine HCl 100 mg 07/21/20 10:50 08/04/20 10:01 Chlorpromazine Hcl 100 Mg Tablet PO 100 mg RQ4H PRN Administration anxiety/restlessness Clotrimazole 1 appl 07/21/20 21:00 08/04/20 08:27 Clotrimazole 1 % Cream 15 Gm Tube TOPICAL Not Given BID [facility] Protocol Doxycycline Hyclate 100 mg 08/02/20 18:45 08/04/20 06:29 Doxycycline Hyclate 100 Mg Tablet PO 100 mg Q12H CONRAD Administration Hydroxyzine HCl 25 mg 07/18/20 15:30 08/01/20 00:43 Hydroxyzine Hcl 25 Mg Tablet PO 25 mg BEDTIME PRN Administration Anxiety Magnesium Hydroxide 30 ml 07/18/20 15:30 08/01/20 13:34 Milk Of Magnesia 30 Ml Oral.Susp PO 30 ml DAILY PRN Administration Constipation Olanzapine 10 mg 07/28/20 15:00 08/04/20 08:23 Olanzapine Odt 10 Mg Tab.Rapdis TRANSLINGU 10 mg TID CONRAD Administration Olanzapine 10 mg 07/28/20 13:12 04/15/21 05:26 Olanzapine Odt 10 Mg Tab.Rapdis TRANSLINGU 10 mg DAILY PRN Administration Psychosis Trazodone HCl 150 mg 07/20/20 21:25 08/03/20 20:34 Trazodone Hcl 50 Mg Tablet PO 150 mg BEDTIME PRN Administration Insomnia Labs CBC & Chem 7: 08/03/20 09:03 08/03/20 09:03 Assessment and Plan (1) Bipolar 1 disorder, mixed, severe: Status: Acute Assessment and Plan: 45 year-old man with bipolar 1 admitted to on 07/18/20 with disorganized joleen, undergoing ECT, who has developed a purulent cellulits overlying the left knee # purulent cellulitis - oral doxycycline d#06/24 # renal insufficiency - unknown baseline creatinine. SCr improved. check urine studies and renal US # tinea corporis - continue clotrimazole cream # bipolar disorder - medications and ECT as per psychiatry team Will continue to follow along with psychiatry team
[2020-08-04 17:31] VITALS: BP 129/77; PULSE 144; TEMP 36.5
--- NOTE | 2020-08-04 19:51 | HO.PSYCHPN ---
Subjective Subjective Date of Service: 08/05/20 Reason For Visit: joleen Subjective Notes: Section 8 Interim History: Continues on 1:1. Confused with some clear moments, tangential. Medication Compliance: Yes Side effects from medications: No Attending Groups: No Review of Systems Review of Systems Patient not interested in talking Yes all other systems are reviewed and are negative and Unobtainable due to mental status Reports behavioral changes and Reports confusion Psychiatric: Reports behavioral changes, Reports confusion, Reports mood swings, Reports paranoia and Reports hallucinations Mental Status Exam Mental Status Exam Patient Appearance: Appropriate Patient Orientation: Person Level of Consciousness: Awake Patient Behavior: Restless and Invasion - Personal Space Mood Description: Labile Affect Description: Labile Patient Cognition Impaired: No Ability to Follow Directions: Poor Speech Pattern: Clear Memory Description: Intact Hallucinations: None Delusions: Present Thought Process: Racing and Distracted Thought Content: positive for Flight of Ideas Depressive Symptoms: Difficulty Concentrating Judgement: Poor Diagnostics Vital Signs (24Hr): Vital Signs - 24 hr 08/03/20 21:20 08/04/20 12:19 08/04/20 17:31 Temperature 97.3 F 97.6 F 97.7 F Pulse Rate 112 H 133 H 144 H Respiratory Rate 18 Blood Pressure 133/79 111/71 129/77 Pulse Oximetry 97 Body Mass Index 30.2 Labs Results: 08/03/20 09:03 08/03/20 09:03 Labs: Laboratory Results - last 48 hr 08/03/20 08/03/20 09:03 09:03 WBC 6.4 RBC 4.36 L Hgb 13.1 L Hct 39.7 L MCV 91.1 MCH 30.0 MCHC 33.0 RDW 12.8 Plt Count 265 D MPV 9.5 Immature Gran % (Auto) 0.8 H Neut % (Auto) 51.9 Lymph % (Auto) 30.2 [place] % (Auto) 11.2 H Eos % (Auto) 5.6 H Baso % (Auto) 0.3 Lymph # (Auto) 1.9 [place] # (Auto) 0.7 Eos # (Auto) 0.4 Baso # (Auto) 0.0 Abs Immat Gran (auto) 0.05 H Absolute Neuts (auto) 3.3 Absolute Nucleated RBC 0.000 Nucleated RBC % (auto) 0.0 Sodium 144 Potassium 4.8 Chloride 107 Carbon Dioxide 23 Anion Gap 19 BUN 16 Creatinine 1.85 H Estim Creat Clear Calc 65.1 Estimated GFR 40 Random Glucose 103 Calcium 9.2 C-Reactive Protein 8.22 H Imaging Radiology Impressions: ITS Impressions Foot X-Ray 07/20/20 15:03 IMPRESSION: No fracture seen. Calcaneal spurs and mild degenerative changes. Medications Medications Current Medications Generic Name Dose Route Start Last Admin Trade Name Freq PRN Reason Stop Dose Admin Acetaminophen 650 mg 07/18/20 15:30 Acetaminophen 325 Mg Tablet PO Q6H PRN Headache/Pain Mild Scale (1-3) Al Hydroxide/Mg Hydroxide 30 ml 07/18/20 15:30 Magnesium Hydrox/Alum Hydrox 30 Ml Oral.Susp PO Q6H PRN Heartburn/Nausea Aripiprazole 30 mg 07/22/20 09:00 08/04/20 08:23 Aripiprazole 30 Mg Tablet PO 30 mg DAILY CONRAD Administration Chlorpromazine HCl 100 mg 07/21/20 10:50 08/04/20 16:49 Chlorpromazine Hcl 100 Mg Tablet PO 100 mg RQ4H PRN Administration anxiety/restlessness Clotrimazole 1 appl 07/21/20 21:00 08/04/20 08:27 Clotrimazole 1 % Cream 15 Gm Tube TOPICAL Not Given BID [facility] Protocol Doxycycline Hyclate 100 mg 08/02/20 18:45 08/04/20 16:49 Doxycycline Hyclate 100 Mg Tablet PO 100 mg Q12H CONRAD Administration Hydroxyzine HCl 25 mg 07/18/20 15:30 08/01/20 00:43 Hydroxyzine Hcl 25 Mg Tablet PO 25 mg BEDTIME PRN Administration Anxiety Magnesium Hydroxide 30 ml 07/18/20 15:30 08/01/20 13:34 Milk Of Magnesia 30 Ml Oral.Susp PO 30 ml DAILY PRN Administration Constipation Olanzapine 10 mg 07/28/20 15:00 08/04/20 19:48 Olanzapine Odt 10 Mg Tab.Rapdis TRANSLINGU 10 mg TID CONRAD Administration Olanzapine 10 mg 07/28/20 13:12 08/04/20 14:22 Olanzapine Odt 10 Mg Tab.Rapdis TRANSLINGU 10 mg DAILY PRN Administration Psychosis Trazodone HCl 150 mg 07/20/20 21:25 08/03/20 20:34 Trazodone Hcl 50 Mg Tablet PO 150 mg BEDTIME PRN Administration Insomnia Allergies Allergies Allergy/AdvReac Type Severity Reaction Status Date / Time haloperidol [From Haldol] Allergy Unknown Verified 07/22/20 03:38 Assessment & Plan Assessment & Plan (1) Bipolar 1 disorder, mixed, severe: Status: Acute Code(s): F31.63 - Bipolar disorder, current episode mixed, severe, without psychotic features Assessment and Plan: 45 year-old man with bipolar 1 admitted to on 07/18/20 with disorganized joleen, undergoing ECT, who has developed a purulent cellulits overlying the left knee # purulent cellulitis - oral doxycycline d#06/24 # renal insufficiency - unknown baseline creatinine. SCr improved. check urine studies and renal US # tinea corporis - continue clotrimazole cream # bipolar disorder - medications and ECT as per psychiatry team Will continue to follow along with psychiatry team Greater than 50% of the session was spent on counseling and/or coordination of care Reason for contiued inpatient stay Substantial Risk for: harm to self, harm to others, inability to function, rapid decompensation and med/psych decompensation
[2020-08-04] MEDS: Acetaminophen 325 MG TABLET 650 MG PO (19:59)
[2020-08-05] MEDS: OLANZapine ODT 10 MG TAB.RAPDIS TRANSLINGU ×3 (09:24→20:03)
[2020-08-05] MEDS: ARIPiprazole 30 MG TABLET PO (09:24)
--- NOTE | 2020-08-05 12:48 | P.PNIM_ITS ---
Subjective Subjective Date of Service: 08/05/20 Interval History: no complaints of pain on R knee though ROS limited by disorganized thought process Physical Exam Vital Signs: Vital Signs: Last Vital Signs Temp 97.7 F 08/04/20 17:31 Pulse 144 H 08/04/20 17:31 Resp 18 08/04/20 12:19 BP 129/77 08/04/20 17:31 Pulse Ox 97 08/04/20 12:19 Body Mass Index 30.2 gen: NAD skin: inflammatory hyperpigmentation over the medial right patella; no areas of fluctuance; much improved from prior. multiple tinea corporis lesions on both legs Objective Data Current Medications Generic Name Dose Route Start Last Admin Trade Name Freq PRN Reason Stop Dose Admin Acetaminophen 650 mg 07/18/20 15:30 08/04/20 19:59 Acetaminophen 325 Mg Tablet PO 650 mg Q6H PRN Administration Headache/Pain Mild Scale (1-3) Al Hydroxide/Mg Hydroxide 30 ml 07/18/20 15:30 Magnesium Hydrox/Alum Hydrox 30 Ml Oral.Susp PO Q6H PRN Heartburn/Nausea Aripiprazole 30 mg 07/22/20 09:00 08/05/20 09:24 Aripiprazole 30 Mg Tablet PO 30 mg DAILY CONRAD Administration Chlorpromazine HCl 100 mg 07/21/20 10:50 08/04/20 16:49 Chlorpromazine Hcl 100 Mg Tablet PO 100 mg RQ4H PRN Administration anxiety/restlessness Clotrimazole 1 appl 07/21/20 21:00 08/05/20 09:28 Clotrimazole 1 % Cream 15 Gm Tube TOPICAL Not Given BID [facility] Protocol Doxycycline Hyclate 100 mg 08/02/20 18:45 08/05/20 06:51 Doxycycline Hyclate 100 Mg Tablet PO 100 mg Q12H CONRAD Administration Hydroxyzine HCl 25 mg 07/18/20 15:30 08/01/20 00:43 Hydroxyzine Hcl 25 Mg Tablet PO 25 mg BEDTIME PRN Administration Anxiety Magnesium Hydroxide 30 ml 07/18/20 15:30 08/01/20 13:34 Milk Of Magnesia 30 Ml Oral.Susp PO 30 ml DAILY PRN Administration Constipation Olanzapine 10 mg 07/28/20 15:00 08/05/20 09:24 Olanzapine Odt 10 Mg Tab.Rapdis TRANSLINGU 10 mg TID CONRAD Administration Olanzapine 10 mg 07/28/20 13:12 08/04/20 14:22 Olanzapine Odt 10 Mg Tab.Rapdis TRANSLINGU 10 mg DAILY PRN Administration Psychosis Trazodone HCl 150 mg 07/20/20 21:25 08/03/20 20:34 Trazodone Hcl 50 Mg Tablet PO 150 mg BEDTIME PRN Administration Insomnia Labs CBC & Chem 7: 08/03/20 09:03 08/03/20 09:03 Assessment and Plan (1) Bipolar 1 disorder, mixed, severe: Status: Acute Assessment and Plan: 45 year-old man with bipolar 1 admitted to on 07/18/20 with disorganized joleen, undergoing ECT, who has developed a purulent cellulits overlying the left knee # purulent cellulitis - oral doxycycline d#07/25 # renal insufficiency - unknown baseline creatinine. SCr improved. avoid nephrotoxins - please check urine studies and renal US as ordered # tinea corporis - continue clotrimazole cream # bipolar disorder - medications and ECT as per psychiatry team We are signing off this consultation for now. Please call once the urine st udies and renal US are completed for further recommendations.
[2020-08-05] MEDS: chlorproMAZINE HCl 100 MG TABLET PO ×2 (15:21→23:54)
[2020-08-05 16:49] VITALS: BP 142/73; PULSE 148; TEMP 37
[2020-08-05] MEDS: Acetaminophen 325 MG TABLET 650 MG PO (18:08)
--- NOTE | 2020-08-05 18:25 | HO.PSYCHPN ---
Subjective Subjective Date of Service: 08/05/20 Reason For Visit: joleen Subjective Notes: Section 8 Interim History: Pt has experienced significant improvement. Coherent conversation with family via phone earlier this morning. Approached content writer for a meeting. Pt was mildly disorganized, tangential as our conversation progressed. He is attempting to recall events of the past few weeks. He then wanted to complete a case review on a patient Jayda. Medication Compliance: Yes Side effects from medications: No Attending Groups: No Review of Systems Review of Systems Yes Unobtainable due to mental status Reports behavioral changes and Reports memory loss Psychiatric: Reports behavioral changes, Reports difficulty concentrating and Reports memory loss Mental Status Exam Mental Status Exam Patient Appearance: Appropriate Patient Orientation: Person Level of Consciousness: Awake and Alert Patient Behavior: Appropriate, Talkative, Cooperative, Restless, Distractible and Good Eye Contact Mood Description: Calm and Withdrawn Affect Description: Flat Patient Cognition Impaired: Yes Ability to Follow Directions: Fair Speech Pattern: Spontaneous Speech, Rambling and Soft-Spoken Memory Description: Remote Impaired, Immediate Impaired, Loader Engineer Impaired and Episodic Impaired Hallucinations: None Delusions: Present Thought Process: Racing and Distracted Thought Content: positive for Flight of Ideas, positive for Disoriented, positive for Reading, positive for Loose Associations and positive for Tangential Depressive Symptoms: Difficulty Concentrating Judgement: Poor Diagnostics Vital Signs (24Hr): Vital Signs - 24 hr 08/05/20 16:49 Temperature 98.6 F Pulse Rate 148 H Blood Pressure 142/73 H Body Mass Index 30.2 Labs Results: 08/03/20 09:03 08/03/20 09:03 Imaging Radiology Impressions: ITS Impressions Foot X-Ray 07/20/20 15:03 IMPRESSION: No fracture seen. Calcaneal spurs and mild degenerative changes. Medications Medications Current Medications Generic Name Dose Route Start Last Admin Trade Name Freq PRN Reason Stop Dose Admin Acetaminophen 650 mg 07/18/20 15:30 08/04/20 19:59 Acetaminophen 325 Mg Tablet PO 650 mg Q6H PRN Administration Headache/Pain Mild Scale (1-3) Al Hydroxide/Mg Hydroxide 30 ml 07/18/20 15:30 Magnesium Hydrox/Alum Hydrox 30 Ml Oral.Susp PO Q6H PRN Heartburn/Nausea Aripiprazole 30 mg 07/22/20 09:00 08/05/20 09:24 Aripiprazole 30 Mg Tablet PO 30 mg DAILY CONRAD Administration Chlorpromazine HCl 100 mg 07/21/20 10:50 08/05/20 15:21 Chlorpromazine Hcl 100 Mg Tablet PO 100 mg RQ4H PRN Administration anxiety/restlessness Clotrimazole 1 appl 07/21/20 21:00 08/05/20 09:28 Clotrimazole 1 % Cream 15 Gm Tube TOPICAL Not Given BID [facility] Protocol Doxycycline Hyclate 100 mg 08/02/20 18:45 08/05/20 06:51 Doxycycline Hyclate 100 Mg Tablet PO 100 mg Q12H CONRAD Administration Hydroxyzine HCl 25 mg 07/18/20 15:30 08/01/20 00:43 Hydroxyzine Hcl 25 Mg Tablet PO 25 mg BEDTIME PRN Administration Anxiety Magnesium Hydroxide 30 ml 07/18/20 15:30 08/01/20 13:34 Milk Of Magnesia 30 Ml Oral.Susp PO 30 ml DAILY PRN Administration Constipation Olanzapine 10 mg 07/28/20 15:00 08/05/20 14:28 Olanzapine Odt 10 Mg Tab.Rapdis TRANSLINGU 10 mg TID CONRAD Administration Olanzapine 10 mg 07/28/20 13:12 08/04/20 14:22 Olanzapine Odt 10 Mg Tab.Rapdis TRANSLINGU 10 mg DAILY PRN Administration Psychosis Trazodone HCl 150 mg 07/20/20 21:25 08/03/20 20:34 Trazodone Hcl 50 Mg Tablet PO 150 mg BEDTIME PRN Administration Insomnia Allergies Allergies Allergy/AdvReac Type Severity Reaction Status Date / Time haloperidol [From Haldol] Allergy Unknown Verified 07/22/20 03:38 Assessment & Plan Assessment & Plan (1) Bipolar 1 disorder, mixed, severe: Status: Acute Code(s): F31.63 - Bipolar disorder, current episode mixed, severe, without psychotic features Assessment and Plan: 45 year-old man with bipolar 1 admitted to on 07/18/20 with disorganized joleen, undergoing ECT, who has developed a purulent cellulits overlying the left knee # purulent cellulitis - oral doxycycline d#06/24 # renal insufficiency - unknown baseline creatinine. SCr improved. check urine studies and renal US # tinea corporis - continue clotrimazole cream # bipolar disorder - medications and ECT as per psychiatry team Will continue to follow along with psychiatry team Greater than 50% of the session was spent on counseling and/or coordination of care Reason for contiued inpatient stay Substantial Risk for: harm to self, harm to others, inability to function, rapid decompensation and med/psych decompensation
[2020-08-05] MEDS: Clotrimazole 1 % Cream 15 GM TUBE 1 APPL TOPICAL (20:04)
[2020-08-05] MEDS: hydrOXYzine HCL 25 MG TABLET PO (23:54)
[2020-08-05] MEDS: traZODone HCL 50 MG TABLET 150 MG PO (23:54)
[2020-08-06] MEDS: chlorproMAZINE HCl 100 MG TABLET PO ×3 (06:03→22:21)
[2020-08-06 06:38] VITALS: BP 116/72; PULSE 114; RESP 18; TEMP 36.7; O2SAT 98
[2020-08-06] MEDS: ARIPiprazole 30 MG TABLET PO (08:23)
[2020-08-06] MEDS: OLANZapine ODT 10 MG TAB.RAPDIS TRANSLINGU ×3 (08:23→19:40)
[2020-08-06 18:00] VITALS: BP 134/71; PULSE 134; TEMP 36.4
--- NOTE | 2020-08-06 21:32 | HO.PSYCHPN ---
Subjective Subjective Date of Service: 08/06/20 Reason For Visit: joleen Subjective Notes: Section 8 Interim History: Gradual improvement. Increased periods of clarity Renal eval in progress. Cr 1.85. Ultrasound scheduled. Medication Compliance: Yes Side effects from medications: No Attending Groups: No Review of Systems Review of Systems Yes Unobtainable due to mental status Reports behavioral changes, Reports confusion and Reports memory loss Psychiatric: Reports anxiety, Reports behavioral changes, Reports confusion, Reports depression, Reports difficulty concentrating, Reports auditory hallucinations, Reports hopelessness, Reports irritability, Reports anhedonia, Reports memory loss, Reports mood swings and Reports paranoia Mental Status Exam Mental Status Exam Patient Appearance: Disheveled Patient Orientation: Person Level of Consciousness: Disoriented, Restless, Alert and Lethargic Patient Behavior: Dependent, Guarded, Talkative, Hyperactive, Cooperative, Passive, Suspicious, Restless, Wandering, Anxious, Fatigued, Distractible, Confused and Impulsive Mood Description: Labile Affect Description: Labile Patient Cognition Impaired: Yes Ability to Follow Directions: Fair Speech Pattern: Impoverished, Difficulty Finding Words, Spontaneous Speech, Rambling, Delayed and Long Pauses Memory Description: Remote Impaired, Immediate Impaired, [facility] Impaired, Episodic Impaired and Recent Impaired Hallucinations: None (??? denies) Delusions: Present Thought Process: Disoriented and Distracted Thought Content: positive for Flight of Ideas, positive for Circumstantial, positive for Perseveration, positive for Poverty of Content, positive for Loose Associations, positive for Thought Blocking and positive for Tangential Depressive Symptoms: Increased Anxiety, Diff. Making Decisions, Increased Irritability, Unhappiness, Increased Fatigue and Difficulty Concentrating Abnormal Motor Activity Signs and Symptoms: Restlessness Judgement: Poor Diagnostics Vital Signs (24Hr): Vital Signs - 24 hr 08/06/20 06:38 08/06/20 18:00 Temperature 98.0 F 97.5 F Pulse Rate 114 H 134 H Respiratory Rate 18 Blood Pressure 116/72 134/71 Pulse Oximetry 98 Body Mass Index 30.2 Labs Results: 08/03/20 09:03 08/03/20 09:03 Imaging Radiology Impressions: ITS Impressions Foot X-Ray 07/20/20 15:03 IMPRESSION: No fracture seen. Calcaneal spurs and mild degenerative changes. Renal Ultrasound 08/06/20 11:49 IMPRESSION: 1. Patient study limitations. No hydronephrosis or caliectasis. 2. Probable increased renal parenchymal density on left. Nonobstructing calculus left interpolar 0.8 cm. Medications Medications Current Medications Generic Name Dose Route Start Last Admin Trade Name Freq PRN Reason Stop Dose Admin Acetaminophen 650 mg 07/18/20 15:30 08/05/20 18:08 Acetaminophen 325 Mg Tablet PO 650 mg Q6H PRN Administration Headache/Pain Mild Scale (1-3) Al Hydroxide/Mg Hydroxide 30 ml 07/18/20 15:30 Magnesium Hydrox/Alum Hydrox 30 Ml Oral.Susp PO Q6H PRN Heartburn/Nausea Aripiprazole 30 mg 07/22/20 09:00 08/06/20 08:23 Aripiprazole 30 Mg Tablet PO 30 mg DAILY CONRAD Administration Chlorpromazine HCl 100 mg 07/21/20 10:50 08/06/20 17:56 Chlorpromazine Hcl 100 Mg Tablet PO 100 mg RQ4H PRN Administration anxiety/restlessness Clotrimazole 1 appl 07/21/20 21:00 08/06/20 19:46 Clotrimazole 1 % Cream 15 Gm Tube TOPICAL Not Given BID [facility] Protocol Doxycycline Hyclate 100 mg 08/02/20 18:45 08/06/20 18:20 Doxycycline Hyclate 100 Mg Tablet PO 100 mg Q12H CONRAD Administration Hydroxyzine HCl 25 mg 07/18/20 15:30 08/05/20 23:54 Hydroxyzine Hcl 25 Mg Tablet PO 25 mg BEDTIME PRN Administration Anxiety Magnesium Hydroxide 30 ml 07/18/20 15:30 08/01/20 13:34 Milk Of Magnesia 30 Ml Oral.Susp PO 30 ml DAILY PRN Administration Constipation Olanzapine 10 mg 07/28/20 15:00 08/06/20 19:40 Olanzapine Odt 10 Mg Tab.Rapdis TRANSLINGU 10 mg TID CONRAD Administration Olanzapine 10 mg 07/28/20 13:12 08/04/20 14:22 Olanzapine Odt 10 Mg Tab.Rapdis TRANSLINGU 10 mg DAILY PRN Administration Psychosis Trazodone HCl 150 mg 07/20/20 21:25 08/05/20 23:54 Trazodone Hcl 50 Mg Tablet PO 150 mg BEDTIME PRN Administration Insomnia Allergies Allergies Allergy/AdvReac Type Severity Reaction Status Date / Time haloperidol [From Haldol] Allergy Unknown Verified 07/22/20 03:38 Assessment & Plan Assessment & Plan (1) Bipolar 1 disorder, mixed, severe: Status: Acute Code(s): F31.63 - Bipolar disorder, current episode mixed, severe, without psychotic features Assessment and Plan: 45 year-old man with bipolar 1 admitted to on 07/18/20 with disorganized joleen, undergoing ECT, who has developed a purulent cellulits overlying the left knee # purulent cellulitis - oral doxycycline d#06/24 # renal insufficiency - unknown baseline creatinine. SCr improved. check urine studies and renal US # tinea corporis - continue clotrimazole cream # bipolar disorder - medications and ECT as per psychiatry team Will continue to follow along with psychiatry team Greater than 50% of the session was spent on counseling and/or coordination of care Reason for contiued inpatient stay Substantial Risk for: harm to self, harm to others, inability to function, rapid decompensation and med/psych decompensation
[2020-08-06] MEDS: traZODone HCL 50 MG TABLET 150 MG PO (22:21)
[2020-08-07 07:06] VITALS: BP 111/75; PULSE 84; TEMP 36.2
[2020-08-07] MEDS: OLANZapine ODT 10 MG TAB.RAPDIS TRANSLINGU ×3 (08:56→21:00)
[2020-08-07] MEDS: ARIPiprazole 30 MG TABLET PO (08:56)
[2020-08-07] MEDS: Clotrimazole 1 % Cream 15 GM TUBE 1 APPL TOPICAL ×2 (09:01→21:13)
--- NOTE | 2020-08-07 09:59 | HO.PSYCHPN ---
Subjective Subjective Date of Service: 08/07/20 Reason For Visit: joleen Subjective Notes: Section 7 and Section 8 Interim History: The patient is much better, less confused, able to hold a conversation with this prescriber regarding his chronic renal issues for several minutes. He was aware of his joleen and the need of ECT, he wants to be discharged as soon as he is better. Medication Compliance: Yes Side effects from medications: No Attending Groups: No Review of Systems Review of Systems Yes all other systems are reviewed and are negative Mental Status Exam Mental Status Exam Patient Appearance: Disheveled Patient Orientation: Person and Place Level of Consciousness: Awake and Alert Patient Behavior: Cooperative Mood Description: Withdrawn Affect Description: Constricted Patient Cognition Impaired: No Ability to Follow Directions: Fair Speech Pattern: Clear Thought Process: Goal Oriented (very concrete) and Slowed Thinking Thought Content: positive for Circumstantial Abnormal Motor Activity Signs and Symptoms: Hyperactivity Judgement: Poor Diagnostics Vital Signs (24Hr): Vital Signs - 24 hr 08/06/20 18:00 08/07/20 07:06 Temperature 97.5 F 97.2 F Pulse Rate 134 H 84 Blood Pressure 134/71 111/75 Body Mass Index 30.2 Labs Results: 08/03/20 09:03 08/03/20 09:03 Imaging Radiology Impressions: ITS Impressions Foot X-Ray 07/20/20 15:03 IMPRESSION: No fracture seen. Calcaneal spurs and mild degenerative changes. Renal Ultrasound 08/06/20 11:49 IMPRESSION: 1. Patient study limitations. No hydronephrosis or caliectasis. 2. Probable increased renal parenchymal density on left. Nonobstructing calculus left interpolar 0.8 cm. Medications Medications Current Medications Generic Name Dose Route Start Last Admin Trade Name Freq PRN Reason Stop Dose Admin Acetaminophen 650 mg 07/18/20 15:30 08/05/20 18:08 Acetaminophen 325 Mg Tablet PO 650 mg Q6H PRN Administration Headache/Pain Mild Scale (1-3) Al Hydroxide/Mg Hydroxide 30 ml 07/18/20 15:30 Magnesium Hydrox/Alum Hydrox 30 Ml Oral.Susp PO Q6H PRN Heartburn/Nausea Aripiprazole 30 mg 07/22/20 09:00 08/07/20 08:56 Aripiprazole 30 Mg Tablet PO 30 mg DAILY CONRAD Administration Chlorpromazine HCl 100 mg 07/21/20 10:50 08/06/20 22:21 Chlorpromazine Hcl 100 Mg Tablet PO 100 mg RQ4H PRN Administration anxiety/restlessness Clotrimazole 1 appl 07/21/20 21:00 08/07/20 09:01 Clotrimazole 1 % Cream 15 Gm Tube TOPICAL 1 appl BID CONRAD Administration Protocol Doxycycline Hyclate 100 mg 08/07/20 08:00 08/07/20 08:57 Doxycycline Hyclate 100 Mg Tablet PO 100 mg Q12H CONRAD Administration Hydroxyzine HCl 25 mg 07/18/20 15:30 08/05/20 23:54 Hydroxyzine Hcl 25 Mg Tablet PO 25 mg BEDTIME PRN Administration Anxiety Magnesium Hydroxide 30 ml 07/18/20 15:30 08/01/20 13:34 Milk Of Magnesia 30 Ml Oral.Susp PO 30 ml DAILY PRN Administration Constipation Olanzapine 10 mg 07/28/20 15:00 08/07/20 08:56 Olanzapine Odt 10 Mg Tab.Rapdis TRANSLINGU 10 mg TID CONRAD Administration Olanzapine 10 mg 07/28/20 13:12 08/04/20 14:22 Olanzapine Odt 10 Mg Tab.Rapdis TRANSLINGU 10 mg DAILY PRN Administration Psychosis Trazodone HCl 150 mg 07/20/20 21:25 08/06/20 22:21 Trazodone Hcl 50 Mg Tablet PO 150 mg BEDTIME PRN Administration Insomnia Allergies Allergies Allergy/AdvReac Type Severity Reaction Status Date / Time haloperidol [From Haldol] Allergy Unknown Verified 07/22/20 03:38 Assessment & Plan Assessment & Plan (1) Bipolar 1 disorder, mixed, severe: Status: Acute Code(s): F31.63 - Bipolar disorder, current episode mixed, severe, without psychotic features Assessment and Plan: 45 year-old man with bipolar 1 admitted to on 07/18/20 with disorganized joleen, undergoing ECT, who has developed a purulent cellulits overlying the left knee. Currently, his mental status has improved but still symptomatic # bipolar disorder - medications and ECT as per psychiatry team # purulent cellulitis - oral doxycycline d#06/24 # renal insufficiency - baseline creatinine is high as per PCP practice between 1.4 to 1.7 in the last years. SCr improved. check urine studies and renal US. Renal studies didn't show any lithiasisi # tinea corporis - continue clotrimazole cream Greater than 50% of the session was spent on counseling and/or coordination of care Reason for contiued inpatient stay Substantial Risk for: harm to self, harm to others, inability to function, rapid decompensation and med/psych decompensation
[2020-08-07 14:26] LABS: Glucose Urine UA NEG (NEG); Leukocyte Esterase Urine NEG (NEG); Nitrite Urine NEG (NEG); Urine Blood NEG (NEG); Urine Ketones NEG (NEG); Urine Protein NEG (NEG-TRACE)
[2020-08-07 14:27] LABS: Appearance Urine CLEAR; Color Urine YELLOW
[2020-08-07 14:44] LABS: RBC Urine 0-2 /HPF (0); Squamous Epithelial Cell Urine TRACE /LPF; WBC Urine 0-2 /HPF (0-4)
[2020-08-07 15:05] LABS: Creatinine Urine 62.97 mg/dL; Protein/Creatinine Ratio, Ur 0.17 (<0.2); Sodium Urine Random < 20.0 mmol/L; Total Protein Urine Random 11 mg/dL (<12)
[2020-08-07 16:24] VITALS: BP 127/72; PULSE 118; TEMP 36.3
[2020-08-07] MEDS: chlorproMAZINE HCl 100 MG TABLET PO (21:00)
[2020-08-08] VITALS (14 sets, daily range): BP systolic 116–146; BP diastolic 74–99; PULSE 80–130; RESP 14–18; TEMP 36.2–37.2; O2SAT 94–99; BMI 29.8
--- NOTE | 2020-08-08 07:09 | MHC.SHP ---
Pre-Procedural Eval Section A The patient is an INPATIENT: Yes Changes since office visit: Yes Changes in Medication and Yes Patient answered all questions; No Cold of Flu in the past 2 weeks and No New Medical Problems The History & Physical has been completed within 30 days and I have reviewed it.: Yes Section B Chief Complaint: joleen Allergies: Allergies Allergy/AdvReac Type Severity Reaction Status Date / Time haloperidol [From Haldol] Allergy Unknown Verified 07/22/20 03:38 Plan I have reviewed the history and physical and performed a pertinent physical examination on my patient. No changes have occurred unless specified.
--- NOTE | 2020-08-08 08:44 | P.CONAN_ITS ---
[facility] Active Problems Active Problems: All Active Problems (Updated 08/03/20 @ 10:09 by Pio ward MD) Bipolar 1 disorder, mixed, severe (Acute) Cellulitis and abscess of left leg (Acute) Hyperlipidemia (Acute) Hypertension (Acute) Social History Social History Household Members: Spouse Household Members Other:: Housing: Unknown / Unable to assess Do you presently have visiting nurse or other home services: No Smoking Status: Unknown if ever smoked Smoked in Last 30 Days: No Patient Interested in Nicotine Replacement: No Patient Given Instructions on How to Stop Smoking: No (N/A) Second Hand Smoke Exposure: No Use of substances other than those prescribed or required for medical reasons: No Substance Use Type Other:: No history of substance use per crisis evaluation Last Used Substance: Unknown Last Used Substance Other:: No substance use reported per crisis evaluation Currently Displaying Signs/Symptoms of Drug Intoxication Withdrawal: No Any prior treatment program specific to substance use: No Have you been hit, kicked, punched, or otherwise hurt by someone within the past year? If so, by whom?: No Do you feel safe in your current relationship?: Yes Is there a partner from a previous relationship who is making you feel unsafe now?: No Are you made to feel afraid or neglected: No Cultural Healthcare Practices: Voodoo Advance Directives: No Advance Directives Information Provided: No Advance Directives on File: No Do you have thoughts of harming others: None Do you have a plan to hurt others: No Plan Recently lost weight without trying: No service: No Sexual orientation: Straight/Heterosexual Meds Allergies Allergy/AdvReac Type Severity Reaction Status Date / Time haloperidol [From Haldol] Allergy Unknown Verified 07/22/20 03:38 Active Medications: Current Medications Generic Name Dose Route Start Last Admin Trade Name Freq PRN Reason Stop Dose Admin Acetaminophen 650 mg 07/18/20 15:30 08/05/20 18:08 Acetaminophen 325 Mg Tablet PO 650 mg Q6H PRN Administration Headache/Pain Mild Scale (1-3) Al Hydroxide/Mg Hydroxide 30 ml 07/18/20 15:30 Magnesium Hydrox/Alum Hydrox 30 Ml Oral.Susp PO Q6H PRN Heartburn/Nausea Aripiprazole 30 mg 07/22/20 09:00 08/07/20 08:56 Aripiprazole 30 Mg Tablet PO 30 mg DAILY CONRAD Administration Chlorpromazine HCl 100 mg 07/21/20 10:50 08/07/20 21:00 Chlorpromazine Hcl 100 Mg Tablet PO 100 mg RQ4H PRN Administration anxiety/restlessness Clotrimazole 1 appl 07/21/20 21:00 08/07/20 21:13 Clotrimazole 1 % Cream 15 Gm Tube TOPICAL 1 appl BID CONRAD Administration Protocol Doxycycline Hyclate 100 mg 08/07/20 08:00 08/07/20 21:00 Doxycycline Hyclate 100 Mg Tablet PO 100 mg Q12H CONRAD Administration Hydroxyzine HCl 25 mg 07/18/20 15:30 08/05/20 23:54 Hydroxyzine Hcl 25 Mg Tablet PO 25 mg BEDTIME PRN Administration Anxiety Magnesium Hydroxide 30 ml 07/18/20 15:30 08/01/20 13:34 Milk Of Magnesia 30 Ml Oral.Susp PO 30 ml DAILY PRN Administration Constipation Olanzapine 10 mg 07/28/20 15:00 08/07/20 21:00 Olanzapine Odt 10 Mg Tab.Rapdis TRANSLINGU 10 mg TID CONRAD Administration Olanzapine 10 mg 07/28/20 13:12 08/04/20 14:22 Olanzapine Odt 10 Mg Tab.Rapdis TRANSLINGU 10 mg DAILY PRN Administration Psychosis Trazodone HCl 150 mg 07/20/20 21:25 08/06/20 22:21 Trazodone Hcl 50 Mg Tablet PO 150 mg BEDTIME PRN Administration Insomnia Home Medications Medication Instructions Recorded Confirmed Last Taken Type Unobtainable 07/27/20 07/27/20 Unknown History Exam Exam Date and Time: August 08, 2020 0844 Height,Weight and Vital Signs: Height 6 ft 1 in Weight 102.512 kg Last Vital Signs Temp 98.9 F 08/08/20 07:44 Pulse 80 08/08/20 08:29 Resp 16 08/08/20 08:29 BP 141/81 H 08/08/20 08:29 Pulse Ox 95 08/08/20 08:29 Pertinent Lab Results Pertinent Lab Results: Laboratory Tests 07/24/20 07/24/20 07/25/20 08:19 08:19 08:11 WBC RBC Hgb Hct MCV MCH MCHC RDW Plt Count MPV Immature Gran % (Auto) Neut % (Auto) Lymph % (Auto) [place] % (Auto) Eos % (Auto) Baso % (Auto) Lymph # (Auto) [place] # (Auto) Eos # (Auto) Baso # (Auto) Abs Immat Gran (auto) Absolute Neuts (auto) Absolute Nucleated RBC Nucleated RBC % (auto) Sodium 145 148 H Potassium 4.0 4.0 Chloride 108 111 H Carbon Dioxide 23 27 Anion Gap 18 14 BUN 17 H 15 Creatinine 1.63 H 1.67 H Estim Creat Clear Calc 73.9 72.2 Estimated GFR 46 45 Random Glucose 91 Fasting Glucose 93 Calcium 9.3 9.7 Total Bilirubin 0.9 Direct Bilirubin AST 45 H ALT 59 H Alkaline Phosphatase 48 C-Reactive Protein Total Protein 7.3 Albumin 4.4 TSH 0.95 Urine Color Urine Appearance Urine pH Ur Specific Effie Urine Protein Urine Glucose (UA) Urine Ketones Urine Blood Urine Nitrite Ur Leukocyte Esterase Urine RBC Urine WBC Ur Squamous Epith Cells Urine Bacteria U Random Total Protein Ur Random Sodium Urine Creatinine Protein/Creatinin Ratio Carbamazepine [place] 0.36 L 07/27/20 07/27/20 07/28/20 08:24 08:24 07:51 WBC 5.8 RBC 3.91 L Hgb 12.0 L Hct 35.5 L MCV 90.8 MCH 30.7 MCHC 33.8 RDW 13.5 Plt Count 204 MPV 9.4 Immature Gran % (Auto) 0.3 Neut % (Auto) 61.6 Lymph % (Auto) 18.4 L [place] % (Auto) 10.9 Eos % (Auto) 8.5 H Baso % (Auto) 0.3 Lymph # (Auto) 1.1 L [place] # (Auto) 0.6 Eos # (Auto) 0.5 H Baso # (Auto) 0.0 Abs Immat Gran (auto) 0.02 Absolute Neuts (auto) 3.5 Absolute Nucleated RBC 0.000 Nucleated RBC % (auto) 0.0 Sodium 147 H 146 H Potassium 3.9 3.8 Chloride 111 H 110 H Carbon Dioxide 26 23 Anion Gap 14 17 BUN 21 H 22 H Creatinine 1.86 H 1.93 H Estim Creat Clear Calc 64.8 62.4 Estimated GFR 40 38 Random Glucose 82 104 Fasting Glucose Calcium 8.8 D 9.2 Total Bilirubin Direct Bilirubin AST ALT Alkaline Phosphatase C-Reactive Protein Total Protein Albumin TSH Urine Color Urine Appearance Urine pH Ur Specific Effie Urine Protein Urine Glucose (UA) Urine Ketones Urine Blood Urine Nitrite Ur Leukocyte Esterase Urine RBC Urine WBC Ur Squamous Epith Cells Urine Bacteria U Random Total Protein Ur Random Sodium Urine Creatinine Protein/Creatinin Ratio Carbamazepine [place] 07/29/20 07/31/20 07/31/20 08:22 08:26 08:26 WBC RBC Hgb Hct MCV MCH MCHC RDW Plt Count MPV Immature Gran % (Auto) Neut % (Auto) Lymph % (Auto) [place] % (Auto) Eos % (Auto) Baso % (Auto) Lymph # (Auto) [place] # (Auto) Eos # (Auto) Baso # (Auto) Abs Immat Gran (auto) Absolute Neuts (auto) Absolute Nucleated RBC Nucleated RBC % (auto) Sodium 147 H 144 Potassium 3.9 4.3 Chloride 112 H 108 Carbon Dioxide 23 26 Anion Gap 16 14 BUN 16 18 H Creatinine 1.71 H 2.00 H Estim Creat Clear Calc 70.5 60.2 Estimated GFR 44 37 Random Glucose 105 94 Fasting Glucose Calcium 9.4 9.0 Total Bilirubin 0.7 Direct Bilirubin 0.3 AST 18 D ALT 28 Alkaline Phosphatase 54 C-Reactive Protein Total Protein 6.5 Albumin 3.9 TSH Urine Color Urine Appearance Urine pH Ur Specific Effie Urine Protein Urine Glucose (UA) Urine Ketones Urine Blood Urine Nitrite Ur Leukocyte Esterase Urine RBC Urine WBC Ur Squamous Epith Cells Urine Bacteria U Random Total Protein Ur Random Sodium Urine Creatinine Protein/Creatinin Ratio Carbamazepine [place] 07/31/20 08/03/20 08/03/20 08:26 09:03 09:03 WBC 6.4 RBC 4.36 L Hgb 13.1 L Hct 39.7 L MCV 91.1 MCH 30.0 MCHC 33.0 RDW 12.8 Plt Count 265 D MPV 9.5 Immature Gran % (Auto) 0.8 H Neut % (Auto) 51.9 Lymph % (Auto) 30.2 [place] % (Auto) 11.2 H Eos % (Auto) 5.6 H Baso % (Auto) 0.3 Lymph # (Auto) 1.9 [place] # (Auto) 0.7 Eos # (Auto) 0.4 Baso # (Auto) 0.0 Abs Immat Gran (auto) 0.05 H Absolute Neuts (auto) 3.3 Absolute Nucleated RBC 0.000 Nucleated RBC % (auto) 0.0 Sodium 144 Potassium 4.8 Chloride 107 Carbon Dioxide 23 Anion Gap 19 BUN 16 Creatinine 1.85 H Estim Creat Clear Calc 65.1 Estimated GFR 40 Random Glucose 103 Fasting Glucose Calcium 9.2 Total Bilirubin Direct Bilirubin AST ALT Alkaline Phosphatase C-Reactive Protein 8.22 H Total Protein Albumin TSH Urine Color Urine Appearance Urine pH Ur Specific Effie Urine Protein Urine Glucose (UA) Urine Ketones Urine Blood Urine Nitrite Ur Leukocyte Esterase Urine RBC Urine WBC Ur Squamous Epith Cells Urine Bacteria U Random Total Protein Ur Random Sodium Urine Creatinine Protein/Creatinin Ratio Carbamazepine 6.1 [place] 08/07/20 08/07/20 14:14 14:14 WBC RBC Hgb Hct MCV MCH MCHC RDW Plt Count MPV Immature Gran % (Auto) Neut % (Auto) Lymph % (Auto) [place] % (Auto) Eos % (Auto) Baso % (Auto) Lymph # (Auto) [place] # (Auto) Eos # (Auto) Baso # (Auto) Abs Immat Gran (auto) Absolute Neuts (auto) Absolute Nucleated RBC Nucleated RBC % (auto) Sodium Potassium Chloride Carbon Dioxide Anion Gap BUN Creatinine Estim Creat Clear Calc Estimated GFR Random Glucose Fasting Glucose Calcium Total Bilirubin Direct Bilirubin AST ALT Alkaline Phosphatase C-Reactive Protein Total Protein Albumin TSH Urine Color YELLOW Urine Appearance CLEAR Urine pH 6.0 Ur Specific [place] 1.010 Urine Protein NEG Urine Glucose (UA) NEG Urine Ketones NEG Urine Blood NEG Urine Nitrite NEG Ur Leukocyte Esterase NEG Urine RBC 0-2 Urine WBC 0-2 Ur Squamous Epith Cells TRACE Urine Bacteria NONE U Random Total Protein 11 Ur Random Sodium < 20.0 Urine Creatinine 62.97 Protein/Creatinin Ratio 0.17 Carbamazepine [place] Airway Mallampati Class: II TM Dist: >3cm Neck ROM: Full
[2020-08-08] MEDS: OLANZapine ODT 10 MG TAB.RAPDIS TRANSLINGU ×3 (09:07→20:17)
[2020-08-08] MEDS: ARIPiprazole 30 MG TABLET PO (09:08)
[2020-08-08] MEDS: Clotrimazole 1 % Cream 15 GM TUBE 1 APPL TOPICAL ×2 (09:11→20:17)
--- NOTE | 2020-08-08 10:02 | HO.PSYCHPN ---
Subjective Subjective Date of Service: 08/08/20 Reason For Visit: joleen Subjective Notes: Section 7 and Section 8 Interim History: The patient had ECT today AM. He is more awake and alert but yesterday, he showed some flight of ideas and disorganized thought process but overall , he is much better. Last night, he had Thorazine at for sleep. We will have a family meeting soon to see if he is at baseline, stilll, he is fragile. Medication Compliance: Yes Side effects from medications: No Attending Groups: Intermittent Mental Status Exam Mental Status Exam Patient Appearance: Well Grooomed Patient Orientation: Person and Place Level of Consciousness: Awake and Sedated (after ECT) Patient Behavior: Cooperative, Good Eye Contact and Impulsive Mood Description: Calm and Constricted Affect Description: Withdrawn Patient Cognition Impaired: No Ability to Follow Directions: Fair Speech Pattern: Clear and Excessive (at times) Hallucinations: None Thought Process: Distracted Thought Content: positive for Flight of Ideas Abnormal Motor Activity Signs and Symptoms: Hyperactivity Judgement: Poor Diagnostics Vital Signs (24Hr): Vital Signs - 24 hr 08/07/20 16:24 08/08/20 05:55 08/08/20 06:36 Temperature 97.4 F 97.8 F 97.8 F Pulse Rate 118 H 84 84 Respiratory Rate 18 18 Blood Pressure 127/72 132/81 132/81 Pulse Oximetry 96 96 08/08/20 06:58 08/08/20 07:44 08/08/20 07:49 Temperature 97.1 F 98.9 F Pulse Rate 95 105 H 98 Respiratory Rate 17 16 17 Blood Pressure 144/99 H 146/91 H 136/88 Pulse Oximetry 97 98 97 08/08/20 07:54 08/08/20 07:59 08/08/20 08:15 Temperature Pulse Rate 93 90 84 Respiratory Rate 18 16 16 Blood Pressure 130/88 129/85 129/83 Pulse Oximetry 98 94 96 08/08/20 08:29 08/08/20 08:44 08/08/20 09:24 Temperature 97.4 F Pulse Rate 80 86 91 Respiratory Rate 16 16 14 Blood Pressure 141/81 H 142/89 H 139/91 H Pulse Oximetry 95 97 99 Body Mass Index 29.8 Labs Results: 08/03/20 09:03 08/03/20 09:03 Labs: Laboratory Results - last 48 hr 08/07/20 08/07/20 14:14 14:14 Urine Color YELLOW Urine Appearance CLEAR Urine pH 6.0 Ur Specific [place] 1.010 Urine Protein NEG Urine Glucose (UA) NEG Urine Ketones NEG Urine Blood NEG Urine Nitrite NEG Ur Leukocyte Esterase NEG Urine RBC 0-2 Urine WBC 0-2 Ur Squamous Epith Cells TRACE Urine Bacteria NONE U Random Total Protein 11 Ur Random Sodium < 20.0 Urine Creatinine 62.97 Protein/Creatinin Ratio 0.17 Imaging Radiology Impressions: ITS Impressions Foot X-Ray 07/20/20 15:03 IMPRESSION: No fracture seen. Calcaneal spurs and mild degenerative changes. Renal Ultrasound 08/06/20 11:49 IMPRESSION: 1. Patient study limitations. No hydronephrosis or caliectasis. 2. Probable increased renal parenchymal density on left. Nonobstructing calculus left interpolar 0.8 cm. Medications Medications Current Medications Generic Name Dose Route Start Last Admin Trade Name Freq PRN Reason Stop Dose Admin Acetaminophen 650 mg 07/18/20 15:30 08/05/20 18:08 Acetaminophen 325 Mg Tablet PO 650 mg Q6H PRN Administration Headache/Pain Mild Scale (1-3) Al Hydroxide/Mg Hydroxide 30 ml 07/18/20 15:30 Magnesium Hydrox/Alum Hydrox 30 Ml Oral.Susp PO Q6H PRN Heartburn/Nausea Aripiprazole 30 mg 07/22/20 09:00 08/08/20 09:08 Aripiprazole 30 Mg Tablet PO 30 mg DAILY CONRAD Administration Chlorpromazine HCl 100 mg 07/21/20 10:50 08/07/20 21:00 Chlorpromazine Hcl 100 Mg Tablet PO 100 mg RQ4H PRN Administration anxiety/restlessness Clotrimazole 1 appl 07/21/20 21:00 08/08/20 09:11 Clotrimazole 1 % Cream 15 Gm Tube TOPICAL 1 appl BID CONRAD Administration Protocol Doxycycline Hyclate 100 mg 08/07/20 08:00 08/08/20 09:08 Doxycycline Hyclate 100 Mg Tablet PO 100 mg Q12H CONRAD Administration Hydroxyzine HCl 25 mg 07/18/20 15:30 08/05/20 23:54 Hydroxyzine Hcl 25 Mg Tablet PO 25 mg BEDTIME PRN Administration Anxiety Magnesium Hydroxide 30 ml 07/18/20 15:30 08/01/20 13:34 Milk Of Magnesia 30 Ml Oral.Susp PO 30 ml DAILY PRN Administration Constipation Olanzapine 10 mg 07/28/20 15:00 08/08/20 09:07 Olanzapine Odt 10 Mg Tab.Rapdis TRANSLINGU 10 mg TID CONRAD Administration Olanzapine 10 mg 07/28/20 13:12 08/04/20 14:22 Olanzapine Odt 10 Mg Tab.Rapdis TRANSLINGU 10 mg DAILY PRN Administration Psychosis Trazodone HCl 150 mg 07/20/20 21:25 08/06/20 22:21 Trazodone Hcl 50 Mg Tablet PO 150 mg BEDTIME PRN Administration Insomnia Allergies Allergies Allergy/AdvReac Type Severity Reaction Status Date / Time haloperidol [From Haldol] Allergy Unknown Verified 07/22/20 03:38 Assessment & Plan Assessment & Plan (1) Bipolar 1 disorder, mixed, severe: Status: Acute Code(s): F31.63 - Bipolar disorder, current episode mixed, severe, without psychotic features Assessment and Plan: 45 year-old man with bipolar 1 admitted to on 07/18/20 with disorganized joleen, undergoing ECT, who has developed a purulent cellulits overlying the left knee. Currently, his mental status has improved but still symptomatic # bipolar disorder - medications and ECT as per psychiatry team. - we will start tapering off Zydis slowly after family meeting. It seems that Zyprexa only sedates him but not helps for mood stabilization. # purulent cellulitis - oral doxycycline for 1 week # renal insufficiency - baseline creatinine is high as per PCP practice between 1.4 to 1.7 in the last years. Cr improved. check urine studies and renal US. Renal studies didn't show any lithiasisi # tinea corporis - continue clotrimazole cream Greater than 50% of the session was spent on counseling and/or coordination of care Reason for contiued inpatient stay Substantial Risk for: inability to function and rapid decompensation
--- NOTE | 2020-08-08 22:46 | HO.ECTPROC ---
ECT Procedure Note Diagnosis/Treatment Date of Service: 08/08/20 Diagnosis: Bipolar disorder Previous ECT Date: 08/03/20 Current Treatment Number: 5 Treatment: Series Interval Clinical Notes: Patient is showing gradual improvement ECT Settings Device: THYMATRON DGx Electrode Placement: Bitemporal Program/Pulse Width: 0.50 Energy Percent: 100 Seizure Duration By EEG (in seconds): 46 Medications Administration General Anesthetic: Etomidate (14) Muscle Relaxant: Succinylcholine (100) Ancillary Medications Analgesics: Torodol - Pre ECT Anti-emetics: Zofran - Pre ECT Miscillaneous Medications: Propofol and Midazolam Airway Management Airway Management: Bag Mask Ventilation Treatment Recommendations No Changes Recommended: No change Pt Tolerated Procedure w/o Issue: Yes
[2020-08-09 06:35] VITALS: BP 132/100; PULSE 124; RESP 16; TEMP 36.4; O2SAT 97
[2020-08-09 07:00] VITALS: BMI 27.9
[2020-08-09] MEDS: ARIPiprazole 30 MG TABLET PO (08:21)
[2020-08-09] MEDS: OLANZapine ODT 10 MG TAB.RAPDIS TRANSLINGU ×2 (08:21→22:08)
[2020-08-09] MEDS: Clotrimazole 1 % Cream 15 GM TUBE 1 APPL TOPICAL ×2 (08:22→22:10)
[2020-08-09 08:23] LABS: Anion Gap 13 (12-20); Blood Urea Nitrogen 18 mg/dL (9-16); Carbon Dioxide 26 mmol/L (22-29); Chloride 107 mmol/L (96-108); Cholesterol 181 mg/dL; Creatinine Clr Calc Pharmacy 79.8; Estimated Glomerular Filt Rate 51; Glucose Random 102 mg/dL (60-115); HDL Cholesterol 29 mg/dL; LDL Cholesterol Calculated 119 mg/dl; Potassium 3.9 mmol/L (3.3-5.1); Sodium 142 mmol/L (135-145); Triglycerides 167 mg/dL
--- NOTE | 2020-08-09 11:48 | P.PNPSI_ITS ---
Subjective Subjective Date of Service: 08/09/20 Reason For Visit: joleen Subjective Notes: Section 7 and Section 8 Interim History: The patient is much better, he can speak but he still has flight of ideas, tangential at times. Even though, he is less irritable. Bloodwork showed better CR, now on 1.5 and BUN normal. His lipids are wnl. Medication Compliance: Yes Side effects from medications: No Attending Groups: Yes Mental Status Exam Mental Status Exam Patient Appearance: Well Grooomed Patient Orientation: Person, Place and Situation Level of Consciousness: Awake and Appropriate Patient Behavior: Appropriate and Talkative Mood Description: Expansive Affect Description: Labile Patient Cognition Impaired: No Ability to Follow Directions: Good Speech Pattern: Rambling Thought Process: Racing Thought Content: positive for Thought Blocking Abnormal Motor Activity Signs and Symptoms: Restlessness Judgement: Poor Diagnostics Vital Signs (24Hr): Vital Signs - 24 hr 08/08/20 13:27 08/08/20 16:35 08/08/20 18:46 Temperature 97.9 F Pulse Rate 130 H 121 H 98 Respiratory Rate 18 Blood Pressure 116/74 134/75 Pulse Oximetry 94 08/09/20 06:35 Temperature 97.6 F Pulse Rate 124 H Respiratory Rate 16 Blood Pressure 132/100 H Pulse Oximetry 97 Body Mass Index 27.9 Labs Results: 08/03/20 09:03 08/09/20 07:37 Labs: Laboratory Results - last 48 hr 08/07/20 08/07/20 08/09/20 14:14 14:14 07:37 Sodium 142 Potassium 3.9 Chloride 107 Carbon Dioxide 26 Anion Gap 13 BUN 18 H Creatinine 1.50 H Estim Creat Clear Calc 79.8 Estimated GFR 51 Random Glucose 102 Calcium 9.0 Triglycerides 167 Cholesterol 181 LDL Cholesterol, Calc 119 HDL Cholesterol 29 Urine Color YELLOW Urine Appearance CLEAR Urine pH 6.0 Ur Specific [place] 1.010 Urine Protein NEG Urine Glucose (UA) NEG Urine Ketones NEG Urine Blood NEG Urine Nitrite NEG Ur Leukocyte Esterase NEG Urine RBC 0-2 Urine WBC 0-2 Ur Squamous Epith Cells TRACE Urine Bacteria NONE U Random Total Protein 11 Ur Random Sodium < 20.0 Urine Creatinine 62.97 Protein/Creatinin Ratio 0.17 Imaging Radiology Impressions: ITS Impressions Foot X-Ray 07/20/20 15:03 IMPRESSION: No fracture seen. Calcaneal spurs and mild degenerative changes. Renal Ultrasound 08/06/20 11:49 IMPRESSION: 1. Patient study limitations. No hydronephrosis or caliectasis. 2. Probable increased renal parenchymal density on left. Nonobstructing calculus left interpolar 0.8 cm. Medications Medications Current Medications Generic Name Dose Route Start Last Admin Trade Name Freq PRN Reason Stop Dose Admin Acetaminophen 650 mg 07/18/20 15:30 08/05/20 18:08 Acetaminophen 325 Mg Tablet PO 650 mg Q6H PRN Administration Headache/Pain Mild Scale (1-3) Al Hydroxide/Mg Hydroxide 30 ml 07/18/20 15:30 Magnesium Hydrox/Alum Hydrox 30 Ml Oral.Susp PO Q6H PRN Heartburn/Nausea Aripiprazole 30 mg 07/22/20 09:00 08/09/20 08:21 Aripiprazole 30 Mg Tablet PO 30 mg DAILY CONRAD Administration Chlorpromazine HCl 100 mg 07/21/20 10:50 08/07/20 21:00 Chlorpromazine Hcl 100 Mg Tablet PO 100 mg RQ4H PRN Administration anxiety/restlessness Clotrimazole 1 appl 07/21/20 21:00 08/09/20 08:22 Clotrimazole 1 % Cream 15 Gm Tube TOPICAL 1 appl BID CONRAD Administration Protocol Doxycycline Hyclate 100 mg 08/07/20 08:00 08/09/20 08:21 Doxycycline Hyclate 100 Mg Tablet PO 100 mg Q12H CONRAD Administration Hydrocortisone 1 appl 08/08/20 15:06 Hydrocortisone 1 % Cream 28.35 Gm Tube TOPICAL TID PRN Itching Protocol Hydroxyzine HCl 25 mg 07/18/20 15:30 08/05/20 23:54 Hydroxyzine Hcl 25 Mg Tablet PO 25 mg BEDTIME PRN Administration Anxiety Magnesium Hydroxide 30 ml 07/18/20 15:30 08/01/20 13:34 Milk Of Magnesia 30 Ml Oral.Susp PO 30 ml DAILY PRN Administration Constipation Olanzapine 10 mg 07/28/20 13:12 08/04/20 14:22 Olanzapine Odt 10 Mg Tab.Rapdis TRANSLINGU 10 mg DAILY PRN Administration Psychosis Olanzapine 10 mg 08/09/20 21:00 Olanzapine Odt 10 Mg Tab.Rapdis TRANSLINGU BID CONRAD Trazodone HCl 150 mg 07/20/20 21:25 08/06/20 22:21 Trazodone Hcl 50 Mg Tablet PO 150 mg BEDTIME PRN Administration Insomnia Allergies Allergies Allergy/AdvReac Type Severity Reaction Status Date / Time haloperidol [From Haldol] Allergy Unknown Verified 07/22/20 03:38 Assessment & Plan Assessment & Plan (1) Bipolar 1 disorder, mixed, severe: Status: Acute Code(s): F31.63 - Bipolar disorder, current episode mixed, severe, without psychotic features Assessment and Plan: 45 year-old man with bipolar 1 admitted to on 07/18/20 with disorganized joleen, undergoing ECT, who has developed a purulent cellulits overlying the left knee. Currently, his mental status has improved but still symptomatic. Now, he is less agitated but still with flight of ideas. # bipolar disorder - medications and ECT as per psychiatry team. - we will start tapering off Zydis slowly after family meeting. It seems that Zyprexa only sedates him but not helps for mood stabilization. Today, we decided to go bid instead of tid. # purulent cellulitis - oral doxycycline for 1 week, stable, no fever # renal insufficiency - baseline creatinine is high as per PCP practice between 1.4 to 1.7 in the last years. Cr improved, today came on 1.5. Renal studies didn't show any lithiasis # tinea corporis - continue clotrimazole cream Greater than 50% of the session was spent on counseling and/or coordination of care Reason for contiued inpatient stay Substantial Risk for: harm to self, harm to others, rapid decompensation and med/psych decompensation
--- NOTE | 2020-08-09 19:59 | PC.NURSE ---
patient has transitioned well with room change earlier today. safety checks changed to 5 minutes with unlocked bathroom. when patient informed of new plan of care stated ''thank you, that makes me feel much better''
[2020-08-09 22:05] VITALS: BP 143/83; PULSE 90; RESP 18; TEMP 36.3; O2SAT 96
[2020-08-10] VITALS (11 sets, daily range): BP systolic 116–153; BP diastolic 78–96; PULSE 72–127; RESP 14–19; TEMP 36.2–36.8; O2SAT 97–100
--- NOTE | 2020-08-10 07:08 | MHC.SHP ---
Pre-Procedural Eval Section A The patient is an INPATIENT: Yes Changes since office visit: Yes Patient answered all questions; No Cold of Flu in the past 2 weeks, No New Medical Problems and No Changes in Medication The History & Physical has been completed within 30 days and I have reviewed it.: Yes Section B Chief Complaint: joleen Allergies: Allergies Allergy/AdvReac Type Severity Reaction Status Date / Time haloperidol [From Haldol] Allergy Unknown Verified 07/22/20 03:38 Plan I have reviewed the history and physical and performed a pertinent physical examination on my patient. No changes have occurred unless specified.
--- NOTE | 2020-08-10 07:31 | HO.ECTPROC ---
ECT Procedure Note Diagnosis/Treatment Date of Service: 08/10/20 Diagnosis: Bipolar disorder Previous ECT Date: 08/08/20 Current Treatment Number: 6 Treatment: Series Interval Clinical Notes: pt improving ECT Settings Device: THYMATRON DGx Electrode Placement: Bitemporal Program/Pulse Width: 0.50 Energy Percent: 100 Seizure Duration By EEG (in seconds): 28 Medications Administration General Anesthetic: Etomidate (14) Muscle Relaxant: Succinylcholine (100) Ancillary Medications Analgesics: Torodol - Pre ECT Anti-emetics: Zofran - Pre ECT Miscillaneous Medications: Midazolam (2 mg) Airway Management Airway Management: Bag Mask Ventilation Treatment Recommendations No Changes Recommended: No change Pt Tolerated Procedure w/o Issue: Yes
[2020-08-10] MEDS: ARIPiprazole 30 MG TABLET PO (08:39)
[2020-08-10] MEDS: OLANZapine ODT 10 MG TAB.RAPDIS TRANSLINGU ×2 (08:39→20:32)
[2020-08-10] MEDS: Clotrimazole 1 % Cream 15 GM TUBE 1 APPL TOPICAL ×2 (08:41→20:33)
--- NOTE | 2020-08-10 11:00 | HO.PSYCHPN ---
Subjective Subjective Date of Service: 08/10/20 Reason For Visit: joleen Subjective Notes: Section 7 and Section 8 Interim History: The patient came back from ECT without any complaints regarding the procedure. He is still having flight of ideas but his behavior is by far, much better. Today, we will have a family meeting at 1 pm Medication Compliance: Yes Side effects from medications: No Attending Groups: No Review of Systems Review of Systems Yes all other systems are reviewed and are negative Mental Status Exam Mental Status Exam Patient Appearance: Well Grooomed Patient Orientation: Person, Place, Time and Situation Level of Consciousness: Awake and Appropriate Patient Behavior: Talkative and Cooperative Mood Description: Calm and Withdrawn Affect Description: Withdrawn Patient Cognition Impaired: No Ability to Follow Directions: Good Speech Pattern: Clear Thought Process: Racing and Distracted Thought Content: positive for Loose Associations Abnormal Motor Activity Signs and Symptoms: Restlessness Judgement: Fair Diagnostics Vital Signs (24Hr): Vital Signs - 24 hr 08/09/20 22:05 08/10/20 06:00 08/10/20 07:02 Temperature 97.3 F 97.4 F 98 F Pulse Rate 90 88 88 Respiratory Rate 18 18 18 Blood Pressure 143/83 H 130/83 130/83 Pulse Oximetry 96 98 98 08/10/20 07:04 08/10/20 07:41 08/10/20 07:46 Temperature 97.2 F 98.3 F Pulse Rate 97 105 H 99 Respiratory Rate 18 14 16 Blood Pressure 146/94 H 153/88 H 139/88 Pulse Oximetry 99 100 100 08/10/20 07:51 08/10/20 07:56 08/10/20 08:11 Temperature 97.3 F Pulse Rate 97 95 84 Respiratory Rate 19 17 17 Blood Pressure 132/87 139/90 H 148/96 H Pulse Oximetry 100 100 98 08/10/20 09:11 Temperature 97.2 F Pulse Rate 72 Respiratory Rate 16 Blood Pressure 116/78 Pulse Oximetry 97 Body Mass Index 27.9 Labs Results: 08/03/20 09:03 08/09/20 07:37 Labs: Laboratory Results - last 48 hr 08/09/20 07:37 Sodium 142 Potassium 3.9 Chloride 107 Carbon Dioxide 26 Anion Gap 13 BUN 18 H Creatinine 1.50 H Estim Creat Clear Calc 79.8 Estimated GFR 51 Random Glucose 102 Calcium 9.0 Triglycerides 167 Cholesterol 181 LDL Cholesterol, Calc 119 HDL Cholesterol 29 Imaging Radiology Impressions: ITS Impressions Foot X-Ray 07/20/20 15:03 IMPRESSION: No fracture seen. Calcaneal spurs and mild degenerative changes. Renal Ultrasound 08/06/20 11:49 IMPRESSION: 1. Patient study limitations. No hydronephrosis or caliectasis. 2. Probable increased renal parenchymal density on left. Nonobstructing calculus left interpolar 0.8 cm. Medications Medications Current Medications Generic Name Dose Route Start Last Admin Trade Name Freq PRN Reason Stop Dose Admin Acetaminophen 650 mg 07/18/20 15:30 08/05/20 18:08 Acetaminophen 325 Mg Tablet PO 650 mg Q6H PRN Administration Headache/Pain Mild Scale (1-3) Al Hydroxide/Mg Hydroxide 30 ml 07/18/20 15:30 Magnesium Hydrox/Alum Hydrox 30 Ml Oral.Susp PO Q6H PRN Heartburn/Nausea Aripiprazole 30 mg 07/22/20 09:00 08/10/20 08:39 Aripiprazole 30 Mg Tablet PO 30 mg DAILY CONRAD Administration Chlorpromazine HCl 100 mg 07/21/20 10:50 08/07/20 21:00 Chlorpromazine Hcl 100 Mg Tablet PO 100 mg RQ4H PRN Administration anxiety/restlessness Clotrimazole 1 appl 07/21/20 21:00 08/10/20 08:41 Clotrimazole 1 % Cream 15 Gm Tube TOPICAL 1 appl BID CONRAD Administration Protocol Doxycycline Hyclate 100 mg 08/07/20 08:00 08/10/20 08:39 Doxycycline Hyclate 100 Mg Tablet PO 100 mg Q12H CONRAD Administration Hydrocortisone 1 appl 08/08/20 15:06 Hydrocortisone 1 % Cream 28.35 Gm Tube TOPICAL TID PRN Itching Protocol Hydroxyzine HCl 25 mg 07/18/20 15:30 08/05/20 23:54 Hydroxyzine Hcl 25 Mg Tablet PO 25 mg BEDTIME PRN Administration Anxiety Magnesium Hydroxide 30 ml 07/18/20 15:30 08/01/20 13:34 Milk Of Magnesia 30 Ml Oral.Susp PO 30 ml DAILY PRN Administration Constipation Olanzapine 10 mg 07/28/20 13:12 08/04/20 14:22 Olanzapine Odt 10 Mg Tab.Rapdis TRANSLINGU 10 mg DAILY PRN Administration Psychosis Olanzapine 10 mg 08/09/20 21:00 08/10/20 08:39 Olanzapine Odt 10 Mg Tab.Rapdis TRANSLINGU 10 mg BID CONRAD Administration Trazodone HCl 150 mg 07/20/20 21:25 08/06/20 22:21 Trazodone Hcl 50 Mg Tablet PO 150 mg BEDTIME PRN Administration Insomnia Allergies Allergies Allergy/AdvReac Type Severity Reaction Status Date / Time haloperidol [From Haldol] Allergy Unknown Verified 07/22/20 03:38 Assessment & Plan Assessment & Plan (1) Bipolar 1 disorder, mixed, severe: Status: Acute Code(s): F31.63 - Bipolar disorder, current episode mixed, severe, without psychotic features Assessment and Plan: 45 year-old man with bipolar 1 admitted to on 07/18/20 with disorganized joleen, undergoing ECT, who has developed a purulent cellulits overlying the left knee. Currently, his mental status has improved but still symptomatic. Now, he is less agitated but still with flight of ideas. # bipolar disorder - medications and ECT as per psychiatry team. - we will start tapering off Zydis slowly after family meeting. It seems that Zyprexa only sedates him but not helps for mood stabilization. Today, we decided to stop Thorazine PRN. We will keep Zyprexa bid over the weekned and reassess on the taper and keep only Abilify.. # purulent cellulitis - oral doxycycline for 1 week, stable, no fever # renal insufficiency - baseline creatinine is high as per PCP practice between 1.4 to 1.7 in the last years. Cr improved, today came on 1.5. Renal studies didn't show any lithiasis # tinea corporis - continue clotrimazole cream Greater than 50% of the session was spent on counseling and/or coordination of care Reason for contiued inpatient stay Substantial Risk for: harm to self, harm to others, inability to function, rapid decompensation and med/psych decompensation
[2020-08-11] MEDS: ARIPiprazole 30 MG TABLET PO (08:40)
[2020-08-11] MEDS: OLANZapine ODT 10 MG TAB.RAPDIS TRANSLINGU ×2 (08:41→20:07)
[2020-08-11] MEDS: Clotrimazole 1 % Cream 15 GM TUBE 1 APPL TOPICAL ×2 (14:10→20:05)
--- NOTE | 2020-08-11 16:58 | HO.PSYCHPN ---
Subjective Subjective Date of Service: 08/11/20 Reason For Visit: joleen Subjective Notes: Section 8 Interim History: Duarte has shown a robust and marked response to ECT. He is working on a safety plan which he shared. It is somewhat rambling and over inclusive but he is continuing to be more organized. Medication Compliance: Yes Side effects from medications: No Attending Groups: No Review of Systems Acute medical concerns: No Medical Review of Systems: unchanged Mental Status Exam Mental Status Exam Patient Appearance: Well Grooomed Patient Orientation: Person, Place, Time and Situation Level of Consciousness: Awake and Appropriate Patient Behavior: Talkative and Cooperative Mood Description: Calm and Withdrawn Affect Description: Withdrawn Patient Cognition Impaired: No Ability to Follow Directions: Good Speech Pattern: Clear Thought Process: Racing and Distracted Thought Content: positive for Loose Associations, negative for Suicidal Ideation and negative for Homicidal Ideation Abnormal Motor Activity Signs and Symptoms: Restlessness Judgement: Fair Diagnostics Vital Signs (24Hr): Vital Signs - 24 hr 08/10/20 17:14 Temperature 97.4 F Pulse Rate 111 H Blood Pressure 141/90 H Body Mass Index 27.9 Labs Results: 08/03/20 09:03 08/09/20 07:37 Imaging Radiology Impressions: ITS Impressions Foot X-Ray 07/20/20 15:03 IMPRESSION: No fracture seen. Calcaneal spurs and mild degenerative changes. Renal Ultrasound 08/06/20 11:49 IMPRESSION: 1. Patient study limitations. No hydronephrosis or caliectasis. 2. Probable increased renal parenchymal density on left. Nonobstructing calculus left interpolar 0.8 cm. Medications Medications Current Medications Generic Name Dose Route Start Last Admin Trade Name Freq PRN Reason Stop Dose Admin Acetaminophen 650 mg 07/18/20 15:30 08/05/20 18:08 Acetaminophen 325 Mg Tablet PO 650 mg Q6H PRN Administration Headache/Pain Mild Scale (1-3) Al Hydroxide/Mg Hydroxide 30 ml 07/18/20 15:30 Magnesium Hydrox/Alum Hydrox 30 Ml Oral.Susp PO Q6H PRN Heartburn/Nausea Aripiprazole 30 mg 07/22/20 09:00 08/11/20 08:40 Aripiprazole 30 Mg Tablet PO 30 mg DAILY CONARD Administration Clotrimazole 1 appl 07/21/20 21:00 08/11/20 14:10 Clotrimazole 1 % Cream 15 Gm Tube TOPICAL 1 appl BID CONRAD Administration Protocol Doxycycline Hyclate 100 mg 08/07/20 08:00 08/11/20 08:40 Doxycycline Hyclate 100 Mg Tablet PO 100 mg Q12H CONRAD Administration Hydrocortisone 1 appl 08/08/20 15:06 Hydrocortisone 1 % Cream 28.35 Gm Tube TOPICAL TID PRN Itching Protocol Hydroxyzine HCl 25 mg 07/18/20 15:30 08/05/20 23:54 Hydroxyzine Hcl 25 Mg Tablet PO 25 mg BEDTIME PRN Administration Anxiety Magnesium Hydroxide 30 ml 07/18/20 15:30 08/01/20 13:34 Milk Of Magnesia 30 Ml Oral.Susp PO 30 ml DAILY PRN Administration Constipation Olanzapine 10 mg 07/28/20 13:12 08/04/20 14:22 Olanzapine Odt 10 Mg Tab.Rapdis TRANSLINGU 10 mg DAILY PRN Administration Psychosis Olanzapine 10 mg 08/09/20 21:00 08/11/20 08:41 Olanzapine Odt 10 Mg Tab.Rapdis TRANSLINGU 10 mg BID CONRAD Administration Trazodone HCl 150 mg 07/20/20 21:25 08/06/20 22:21 Trazodone Hcl 50 Mg Tablet PO 150 mg BEDTIME PRN Administration Insomnia Allergies Allergies Allergy/AdvReac Type Severity Reaction Status Date / Time haloperidol [From Haldol] Allergy Unknown Verified 07/22/20 03:38 Assessment & Plan Assessment & Plan (1) Bipolar 1 disorder, mixed, severe: Status: Acute Code(s): F31.63 - Bipolar disorder, current episode mixed, severe, without psychotic features Assessment and Plan: 45 year-old man with bipolar 1 admitted to on 07/18/20 with disorganized joleen, undergoing ECT, who has developed a purulent cellulits overlying the left knee. Currently, his mental status has improved but still symptomatic. Now, he is less agitated but still with flight of ideas. # bipolar disorder - medications and ECT as per psychiatry team. - we will start tapering off Zydis slowly after family meeting. It seems that Zyprexa only sedates him but not helps for mood stabilization. Today, we decided to stop Thorazine PRN. We will keep Zyprexa bid over the weekened and reassess on the taper and keep only Abilify. # purulent cellulitis - oral doxycycline for 1 week, stable, no fever # renal insufficiency - baseline creatinine is high as per PCP practice between 1.4 to 1.7 in the last years. Cr improved, today came on 1.5. Renal studies didn't show any lithiasis # tinea corporis - continue clotrimazole cream CT current treatment plan without change Greater than 50% of the session was spent on counseling and/or coordination of care Patient educated on: diagnosis and medication risk/benefits Informed Consent: further education needed Reason for contiued inpatient stay Substantial Risk for: inability to function and rapid decompensation
[2020-08-11 18:00] VITALS: BP 141/91; PULSE 95; RESP 16; TEMP 36.3; O2SAT 99
[2020-08-12 06:43] VITALS: BP 135/90; PULSE 105; RESP 18; TEMP 36.2; O2SAT 96
[2020-08-12] MEDS: OLANZapine ODT 10 MG TAB.RAPDIS TRANSLINGU ×2 (08:20→22:36)
[2020-08-12] MEDS: ARIPiprazole 30 MG TABLET PO (08:20)
[2020-08-12] MEDS: Clotrimazole 1 % Cream 15 GM TUBE 1 APPL TOPICAL ×2 (08:24→22:35)
--- NOTE | 2020-08-12 11:56 | HO.POSTANES ---
Post Anesthesia Evaluation Post Anesthesia Evaluation Vital Signs: Vital Signs Temp Pulse Resp BP Pulse Ox 08/12/20 06:43 97.1 F 105 H 18 135/90 H 96 Anesthesia: General Mental Status: Awake Pain Control: Satisfactory Nausea/Vomiting: None Hydration: Adequate Anesthesia-Related Issues: No Anes. Related Issues
[2020-08-12 13:00] VITALS: BP 157/81; PULSE 96; RESP 16; O2SAT 96
--- NOTE | 2020-08-12 16:44 | HO.PSYCHPN ---
Subjective Subjective Date of Service: 08/12/20 Reason For Visit: joleen Subjective Notes: Conditional Voluntary Interim History: Duarte continues to show marked improvement. He is clearer in his thinking and he is able to reflect on the need to remain in treatment Medication Compliance: Yes Side effects from medications: No Attending Groups: Intermittent Review of Systems Acute medical concerns: No Medical Review of Systems: unchanged Mental Status Exam Mental Status Exam Patient Appearance: Well Grooomed Patient Orientation: Person, Place, Time and Situation Level of Consciousness: Awake and Appropriate Patient Behavior: Talkative and Cooperative Mood Description: Calm and Withdrawn Affect Description: Withdrawn Patient Cognition Impaired: No Ability to Follow Directions: Good Speech Pattern: Clear Thought Process: Racing and Distracted Thought Content: positive for Loose Associations, negative for Suicidal Ideation and negative for Homicidal Ideation Abnormal Motor Activity Signs and Symptoms: Restlessness Judgement: Fair Diagnostics Vital Signs (24Hr): Vital Signs - 24 hr 08/11/20 18:00 08/12/20 06:43 08/12/20 13:00 Temperature 97.4 F 97.1 F Pulse Rate 95 105 H 96 Respiratory Rate 16 18 16 Blood Pressure 141/91 H 135/90 H 157/81 H Pulse Oximetry 99 96 96 Body Mass Index 27.9 Labs Results: 08/03/20 09:03 08/09/20 07:37 Imaging Radiology Impressions: ITS Impressions Foot X-Ray 07/20/20 15:03 IMPRESSION: No fracture seen. Calcaneal spurs and mild degenerative changes. Renal Ultrasound 08/06/20 11:49 IMPRESSION: 1. Patient study limitations. No hydronephrosis or caliectasis. 2. Probable increased renal parenchymal density on left. Nonobstructing calculus left interpolar 0.8 cm. Medications Medications Current Medications Generic Name Dose Route Start Last Admin Trade Name Freq PRN Reason Stop Dose Admin Acetaminophen 650 mg 07/18/20 15:30 08/05/20 18:08 Acetaminophen 325 Mg Tablet PO 650 mg Q6H PRN Administration Headache/Pain Mild Scale (1-3) Al Hydroxide/Mg Hydroxide 30 ml 07/18/20 15:30 Magnesium Hydrox/Alum Hydrox 30 Ml Oral.Susp PO Q6H PRN Heartburn/Nausea Aripiprazole 30 mg 07/22/20 09:00 08/12/20 08:20 Aripiprazole 30 Mg Tablet PO 30 mg DAILY CONRAD Administration Clotrimazole 1 appl 07/21/20 21:00 08/12/20 08:24 Clotrimazole 1 % Cream 15 Gm Tube TOPICAL 1 appl BID CONRAD Administration Protocol Doxycycline Hyclate 100 mg 08/07/20 08:00 08/12/20 08:20 Doxycycline Hyclate 100 Mg Tablet PO 100 mg Q12H CONRAD Administration Hydrocortisone 1 appl 08/08/20 15:06 Hydrocortisone 1 % Cream 28.35 Gm Tube TOPICAL TID PRN Itching Protocol Hydroxyzine HCl 25 mg 07/18/20 15:30 08/05/20 23:54 Hydroxyzine Hcl 25 Mg Tablet PO 25 mg BEDTIME PRN Administration Anxiety Magnesium Hydroxide 30 ml 07/18/20 15:30 08/01/20 13:34 Milk Of Magnesia 30 Ml Oral.Susp PO 30 ml DAILY PRN Administration Constipation Olanzapine 10 mg 07/28/20 13:12 08/04/20 14:22 Olanzapine Odt 10 Mg Tab.Rapdis TRANSLINGU 10 mg DAILY PRN Administration Psychosis Olanzapine 10 mg 08/09/20 21:00 08/12/20 08:20 Olanzapine Odt 10 Mg Tab.Rapdis TRANSLINGU 10 mg BID CONRAD Administration Trazodone HCl 150 mg 07/20/20 21:25 08/06/20 22:21 Trazodone Hcl 50 Mg Tablet PO 150 mg BEDTIME PRN Administration Insomnia Allergies Allergies Allergy/AdvReac Type Severity Reaction Status Date / Time haloperidol [From Haldol] Allergy Unknown Verified 07/22/20 03:38 Assessment & Plan Assessment & Plan (1) Bipolar 1 disorder, mixed, severe: Status: Acute Code(s): F31.63 - Bipolar disorder, current episode mixed, severe, without psychotic features Assessment and Plan: 45 year-old man with bipolar 1 admitted to on 07/18/20 with disorganized joleen, undergoing ECT, who has developed a purulent cellulits overlying the left knee. Currently, his mental status has improved but still symptomatic. Now, he is less agitated but still with flight of ideas. # bipolar disorder - medications and ECT as per psychiatry team. - we will start tapering off Zydis slowly after family meeting. It seems that Zyprexa only sedates him but not helps for mood stabilization. Today, we decided to stop Thorazine PRN. We will keep Zyprexa bid over the weekened and reassess on the taper and keep only Abilify. # purulent cellulitis - oral doxycycline for 1 week, stable, no fever # renal insufficiency - baseline creatinine is high as per PCP practice between 1.4 to 1.7 in the last years. Cr improved, today came on 1.5. Renal studies didn't show any lithiasis # tinea corporis - continue clotrimazole cream CT current treatment plan without change Greater than 50% of the session was spent on counseling and/or coordination of care Patient educated on: diagnosis and medication risk/benefits Informed Consent: further education needed Reason for contiued inpatient stay Substantial Risk for: inability to function and rapid decompensation
[2020-08-12 18:00] VITALS: BP 123/87; PULSE 109; TEMP 36.8
[2020-08-13] VITALS (10 sets, daily range): BP systolic 121–153; BP diastolic 75–97; PULSE 84–112; RESP 16–18; TEMP 35.9–37.4; O2SAT 95–98; BMI 28.3
--- NOTE | 2020-08-13 08:26 | MHC.SHP ---
Pre-Procedural Eval Section A The patient is an INPATIENT: Yes Changes since office visit: No Cold of Flu in the past 2 weeks, No New Medical Problems, No Changes in Medication and No Patient answered all questions The History & Physical has been completed within 30 days and I have reviewed it.: Yes Section B Chief Complaint: joleen Allergies: Allergies Allergy/AdvReac Type Severity Reaction Status Date / Time haloperidol [From Haldol] Allergy Unknown Verified 07/22/20 03:38 Plan I have reviewed the history and physical and performed a pertinent physical examination on my patient. No changes have occurred unless specified.
--- NOTE | 2020-08-13 08:29 | HO.ANESPROP2 ---
[facility] Active Problems Active Problems: All Active Problems (Updated 08/03/20 @ 10:09 by Pio Degroot MD) Bipolar 1 disorder, mixed, severe (Acute) Cellulitis and abscess of left leg (Acute) Hyperlipidemia (Acute) Hypertension (Acute) Social History Social History Household Members: Spouse Household Members Other:: Housing: Unknown / Unable to assess Do you presently have visiting nurse or other home services: No Smoking Status: Never smoker Smoked in Last 30 Days: No Patient Interested in Nicotine Replacement: No Patient Given Instructions on How to Stop Smoking: No (N/A) Second Hand Smoke Exposure: No Use of substances other than those prescribed or required for medical reasons: No Substance Use Type Other:: No history of substance use per crisis evaluation Last Used Substance: Unknown Last Used Substance Other:: No substance use reported per crisis evaluation Currently Displaying Signs/Symptoms of Drug Intoxication Withdrawal: No Any prior treatment program specific to substance use: No Have you been hit, kicked, punched, or otherwise hurt by someone within the past year? If so, by whom?: No Do you feel safe in your current relationship?: Yes Is there a partner from a previous relationship who is making you feel unsafe now?: No Are you made to feel afraid or neglected: No Cultural Healthcare Practices: Gnosticist Advance Directives: No Advance Directives Information Provided: No Advance Directives on File: No Do you have thoughts of harming others: None Do you have a plan to hurt others: No Plan Recently lost weight without trying: Yes service: No Sexual orientation: Straight/Heterosexual Meds Allergies Allergy/AdvReac Type Severity Reaction Status Date / Time haloperidol [From Haldol] Allergy Unknown Verified 07/22/20 03:38 Active Medications: Current Medications Generic Name Dose Route Start Last Admin Trade Name Freq PRN Reason Stop Dose Admin Acetaminophen 650 mg 07/18/20 15:30 08/05/20 18:08 Acetaminophen 325 Mg Tablet PO 650 mg Q6H PRN Administration Headache/Pain Mild Scale (1-3) Al Hydroxide/Mg Hydroxide 30 ml 07/18/20 15:30 Magnesium Hydrox/Alum Hydrox 30 Ml Oral.Susp PO Q6H PRN Heartburn/Nausea Aripiprazole 30 mg 07/22/20 09:00 08/12/20 08:20 Aripiprazole 30 Mg Tablet PO 30 mg DAILY CONRAD Administration Clotrimazole 1 appl 07/21/20 21:00 08/12/20 22:35 Clotrimazole 1 % Cream 15 Gm Tube TOPICAL 1 appl BID CONRAD Administration Protocol Doxycycline Hyclate 100 mg 08/07/20 08:00 08/12/20 22:35 Doxycycline Hyclate 100 Mg Tablet PO 100 mg Q12H CONRAD Administration Hydrocortisone 1 appl 08/08/20 15:06 Hydrocortisone 1 % Cream 28.35 Gm Tube TOPICAL TID PRN Itching Protocol Hydroxyzine HCl 25 mg 07/18/20 15:30 08/05/20 23:54 Hydroxyzine Hcl 25 Mg Tablet PO 25 mg BEDTIME PRN Administration Anxiety Magnesium Hydroxide 30 ml 07/18/20 15:30 08/01/20 13:34 Milk Of Magnesia 30 Ml Oral.Susp PO 30 ml DAILY PRN Administration Constipation Olanzapine 10 mg 07/28/20 13:12 08/04/20 14:22 Olanzapine Odt 10 Mg Tab.Rapdis TRANSLINGU 10 mg DAILY PRN Administration Psychosis Olanzapine 10 mg 08/09/20 21:00 08/12/20 22:36 Olanzapine Odt 10 Mg Tab.Rapdis TRANSLINGU 10 mg BID CONRAD Administration Trazodone HCl 150 mg 07/20/20 21:25 08/06/20 22:21 Trazodone Hcl 50 Mg Tablet PO 150 mg BEDTIME PRN Administration Insomnia Home Medications Medication Instructions Recorded Confirmed Last Taken Type Unobtainable 07/27/20 07/27/20 Unknown History Exam Exam Date and Time: August 13, 2020 0829 Height,Weight and Vital Signs: Height 6 ft 1 in Weight 97.522 kg Last Vital Signs Temp 98.1 F 08/13/20 06:53 Pulse 84 08/13/20 06:53 Resp 16 08/13/20 06:53 BP 136/92 H 08/13/20 06:53 Pulse Ox 97 08/13/20 06:53 Pertinent Lab Results Pertinent Lab Results: Laboratory Tests 07/24/20 07/24/20 07/25/20 08:19 08:19 08:11 WBC RBC Hgb Hct MCV MCH MCHC RDW Plt Count MPV Immature Gran % (Auto) Neut % (Auto) Lymph % (Auto) [place] % (Auto) Eos % (Auto) Baso % (Auto) Lymph # (Auto) [place] # (Auto) Eos # (Auto) Baso # (Auto) Abs Immat Gran (auto) Absolute Neuts (auto) Absolute Nucleated RBC Nucleated RBC % (auto) Sodium 145 148 H Potassium 4.0 4.0 Chloride 108 111 H Carbon Dioxide 23 27 Anion Gap 18 14 BUN 17 H 15 Creatinine 1.63 H 1.67 H Estim Creat Clear Calc 73.9 72.2 Estimated GFR 46 45 Random Glucose 91 Fasting Glucose 93 Calcium 9.3 9.7 Total Bilirubin 0.9 Direct Bilirubin AST 45 H ALT 59 H Alkaline Phosphatase 48 C-Reactive Protein Total Protein 7.3 Albumin 4.4 Triglycerides Cholesterol LDL Cholesterol, Calc HDL Cholesterol TSH 0.95 Urine Color Urine Appearance Urine pH Ur Specific [place] Urine Protein Urine Glucose (UA) Urine Ketones Urine Blood Urine Nitrite Ur Leukocyte Esterase Urine RBC Urine WBC Ur Squamous Epith Cells Urine Bacteria U Random Total Protein Ur Random Sodium Urine Creatinine Protein/Creatinin Ratio Carbamazepine [place] 0.36 L 07/27/20 07/27/20 07/28/20 08:24 08:24 07:51 WBC 5.8 RBC 3.91 L Hgb 12.0 L Hct 35.5 L MCV 90.8 MCH 30.7 MCHC 33.8 RDW 13.5 Plt Count 204 MPV 9.4 Immature Gran % (Auto) 0.3 Neut % (Auto) 61.6 Lymph % (Auto) 18.4 L [place] % (Auto) 10.9 Eos % (Auto) 8.5 H Baso % (Auto) 0.3 Lymph # (Auto) 1.1 L [place] # (Auto) 0.6 Eos # (Auto) 0.5 H Baso # (Auto) 0.0 Abs Immat Gran (auto) 0.02 Absolute Neuts (auto) 3.5 Absolute Nucleated RBC 0.000 Nucleated RBC % (auto) 0.0 Sodium 147 H 146 H Potassium 3.9 3.8 Chloride 111 H 110 H Carbon Dioxide 26 23 Anion Gap 14 17 BUN 21 H 22 H Creatinine 1.86 H 1.93 H Estim Creat Clear Calc 64.8 62.4 Estimated GFR 40 38 Random Glucose 82 104 Fasting Glucose Calcium 8.8 D 9.2 Total Bilirubin Direct Bilirubin AST ALT Alkaline Phosphatase C-Reactive Protein Total Protein Albumin Triglycerides Cholesterol LDL Cholesterol, Calc HDL Cholesterol TSH Urine Color Urine Appearance Urine pH Ur Specific [place] Urine Protein Urine Glucose (UA) Urine Ketones Urine Blood Urine Nitrite Ur Leukocyte Esterase Urine RBC Urine WBC Ur Squamous Epith Cells Urine Bacteria U Random Total Protein Ur Random Sodium Urine Creatinine Protein/Creatinin Ratio Carbamazepine [place] 07/29/20 07/31/20 07/31/20 08:22 08:26 08:26 WBC RBC Hgb Hct MCV MCH MCHC RDW Plt Count MPV Immature Gran % (Auto) Neut % (Auto) Lymph % (Auto) [place] % (Auto) Eos % (Auto) Baso % (Auto) Lymph # (Auto) [place] # (Auto) Eos # (Auto) Baso # (Auto) Abs Immat Gran (auto) Absolute Neuts (auto) Absolute Nucleated RBC Nucleated RBC % (auto) Sodium 147 H 144 Potassium 3.9 4.3 Chloride 112 H 108 Carbon Dioxide 23 26 Anion Gap 16 14 BUN 16 18 H Creatinine 1.71 H 2.00 H Estim Creat Clear Calc 70.5 60.2 Estimated GFR 44 37 Random Glucose 105 94 Fasting Glucose Calcium 9.4 9.0 Total Bilirubin 0.7 Direct Bilirubin 0.3 AST 18 D ALT 28 Alkaline Phosphatase 54 C-Reactive Protein Total Protein 6.5 Albumin 3.9 Triglycerides Cholesterol LDL Cholesterol, Calc HDL Cholesterol TSH Urine Color Urine Appearance Urine pH Ur Specific [place] Urine Protein Urine Glucose (UA) Urine Ketones Urine Blood Urine Nitrite Ur Leukocyte Esterase Urine RBC Urine WBC Ur Squamous Epith Cells Urine Bacteria U Random Total Protein Ur Random Sodium Urine Creatinine Protein/Creatinin Ratio Carbamazepine [place] 07/31/20 08/03/20 08/03/20 08:26 09:03 09:03 WBC 6.4 RBC 4.36 L Hgb 13.1 L Hct 39.7 L MCV 91.1 MCH 30.0 MCHC 33.0 RDW 12.8 Plt Count 265 D MPV 9.5 Immature Gran % (Auto) 0.8 H Neut % (Auto) 51.9 Lymph % (Auto) 30.2 [place] % (Auto) 11.2 H Eos % (Auto) 5.6 H Baso % (Auto) 0.3 Lymph # (Auto) 1.9 [place] # (Auto) 0.7 Eos # (Auto) 0.4 Baso # (Auto) 0.0 Abs Immat Gran (auto) 0.05 H Absolute Neuts (auto) 3.3 Absolute Nucleated RBC 0.000 Nucleated RBC % (auto) 0.0 Sodium 144 Potassium 4.8 Chloride 107 Carbon Dioxide 23 Anion Gap 19 BUN 16 Creatinine 1.85 H Estim Creat Clear Calc 65.1 Estimated GFR 40 Random Glucose 103 Fasting Glucose Calcium 9.2 Total Bilirubin Direct Bilirubin AST ALT Alkaline Phosphatase C-Reactive Protein 8.22 H Total Protein Albumin Triglycerides Cholesterol LDL Cholesterol, Calc HDL Cholesterol TSH Urine Color Urine Appearance Urine pH Ur Specific [place] Urine Protein Urine Glucose (UA) Urine Ketones Urine Blood Urine Nitrite Ur Leukocyte Esterase Urine RBC Urine WBC Ur Squamous Epith Cells Urine Bacteria U Random Total Protein Ur Random Sodium Urine Creatinine Protein/Creatinin Ratio Carbamazepine 6.1 [place] 08/07/20 08/07/20 08/09/20 14:14 14:14 07:37 WBC RBC Hgb Hct MCV MCH MCHC RDW Plt Count MPV Immature Gran % (Auto) Neut % (Auto) Lymph % (Auto) [place] % (Auto) Eos % (Auto) Baso % (Auto) Lymph # (Auto) [place] # (Auto) Eos # (Auto) Baso # (Auto) Abs Immat Gran (auto) Absolute Neuts (auto) Absolute Nucleated RBC Nucleated RBC % (auto) Sodium 142 Potassium 3.9 Chloride 107 Carbon Dioxide 26 Anion Gap 13 BUN 18 H Creatinine 1.50 H Estim Creat Clear Calc 79.8 Estimated GFR 51 Random Glucose 102 Fasting Glucose Calcium 9.0 Total Bilirubin Direct Bilirubin AST ALT Alkaline Phosphatase C-Reactive Protein Total Protein Albumin Triglycerides 167 Cholesterol 181 LDL Cholesterol, Calc 119 HDL Cholesterol 29 TSH Urine Color YELLOW Urine Appearance CLEAR Urine pH 6.0 Ur Specific [place] 1.010 Urine Protein NEG Urine Glucose (UA) NEG Urine Ketones NEG Urine Blood NEG Urine Nitrite NEG Ur Leukocyte Esterase NEG Urine RBC 0-2 Urine WBC 0-2 Ur Squamous Epith Cells TRACE Urine Bacteria NONE U Random Total Protein 11 Ur Random Sodium < 20.0 Urine Creatinine 62.97 Protein/Creatinin Ratio 0.17 Carbamazepine [place] Airway Mallampati Class: III TM Dist: >3cm Neck ROM: Full Heart: RRR Lungs: CTA
--- NOTE | 2020-08-13 08:29 | HO.ECTPROC ---
ECT Procedure Note Diagnosis/Treatment Date of Service: 08/13/20 Diagnosis: Bipolar disorder Previous ECT Date: 08/10/20 Current Treatment Number: 7 Treatment: Series Interval Clinical Notes: The patient is much better, less manic, no evidence of psychosis or disorganized behavior. No side effects or any complaints after previous ECT ECT Settings Device: THYMATRON DGx Electrode Placement: Bitemporal Program/Pulse Width: 0.50 Energy Percent: 100 Seizure Duration By EEG (in seconds): 45 By Motor Observation (in seconds): 28 Medications Administration General Anesthetic: Etomidate (14) Muscle Relaxant: Succinylcholine (100) Ancillary Medications Analgesics: Torodol - Pre ECT Anti-emetics: Zofran - Pre ECT Airway Management Airway Management: Bag Mask Ventilation Treatment Recommendations No Changes Recommended: No change Electrode Placement: Bifrontal Program/Pulse Width: 0.50 Energy Percent: 100 Pt Tolerated Procedure w/o Issue: Yes
[2020-08-13] MEDS: Clotrimazole 1 % Cream 15 GM TUBE 1 APPL TOPICAL ×2 (09:56→22:12)
[2020-08-13] MEDS: ARIPiprazole 30 MG TABLET PO (09:56)
[2020-08-13] MEDS: OLANZapine ODT 10 MG TAB.RAPDIS TRANSLINGU ×2 (09:56→22:11)
--- NOTE | 2020-08-13 15:24 | P.PNPSI_ITS ---
Subjective Subjective Date of Service: 08/13/20 Reason For Visit: joleen Subjective Notes: Section 7 and Section 8 Interim History: The patient had ECT today AM without complications. His mood is much stable, there is no evidence of psychosis or catatonia. Even though, he has some involuntary movements in the jaw and mild cogwheel on the hands. We discussed the treatment plan and he agreed to continue taper off Zyprexa. 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 Medication Compliance: Yes Side effects from medications: Yes (EPS) Attending Groups: No Review of Systems Review of Systems Yes all other systems are reviewed and are negative Mental Status Exam Mental Status Exam Patient Appearance: Well Grooomed Patient Orientation: Person, Place, Time and Situation Level of Consciousness: Awake Patient Behavior: Appropriate Mood Description: Calm Affect Description: Appropriate and Constricted Patient Cognition Impaired: No Ability to Follow Directions: Good Speech Pattern: Clear Memory Description: Intact Hallucinations: None Delusions: Not Present Thought Process: Slowed Thinking Judgement: Fair Diagnostics Vital Signs (24Hr): Vital Signs - 24 hr 08/12/20 18:00 08/13/20 05:40 08/13/20 06:39 Temperature 98.2 F 97.0 F 97 F Pulse Rate 109 H 98 98 Respiratory Rate 18 18 Blood Pressure 123/87 153/91 H 153/91 H Pulse Oximetry 98 98 08/13/20 06:53 08/13/20 08:56 08/13/20 09:01 Temperature 98.1 F 99.1 F Pulse Rate 84 108 H 111 H Respiratory Rate 16 16 16 Blood Pressure 136/92 H 138/75 141/89 H Pulse Oximetry 97 97 95 08/13/20 09:06 08/13/20 09:11 08/13/20 10:59 Temperature 99.3 F 97.3 F Pulse Rate 108 H 104 H 111 H Respiratory Rate 16 16 Blood Pressure 149/93 H 147/94 H 135/97 H Pulse Oximetry 96 96 08/13/20 13:00 Temperature Pulse Rate 111 H Respiratory Rate Blood Pressure 135/97 H Pulse Oximetry 98 Body Mass Index 28.3 Labs Results: 08/03/20 09:03 08/09/20 07:37 Imaging Radiology Impressions: ITS Impressions Foot X-Ray 07/20/20 15:03 IMPRESSION: No fracture seen. Calcaneal spurs and mild degenerative changes. Renal Ultrasound 08/06/20 11:49 IMPRESSION: 1. Patient study limitations. No hydronephrosis or caliectasis. 2. Probable increased renal parenchymal density on left. Nonobstructing calculus left interpolar 0.8 cm. Medications Medications Current Medications Generic Name Dose Route Start Last Admin Trade Name Freq PRN Reason Stop Dose Admin Acetaminophen 650 mg 07/18/20 15:30 08/05/20 18:08 Acetaminophen 325 Mg Tablet PO 650 mg Q6H PRN Administration Headache/Pain Mild Scale (1-3) Acetaminophen 650 mg 08/13/20 08:30 Acetaminophen 325 Mg Tablet PO ONCE PRN Pain, Mild (Pain Scale 1-3) Al Hydroxide/Mg Hydroxide 30 ml 07/18/20 15:30 Magnesium Hydrox/Alum Hydrox 30 Ml Oral.Susp PO Q6H PRN Heartburn/Nausea Aripiprazole 30 mg 07/22/20 09:00 08/13/20 09:56 Aripiprazole 30 Mg Tablet PO 30 mg DAILY CONRAD Administration Clotrimazole 1 appl 07/21/20 21:00 08/13/20 09:56 Clotrimazole 1 % Cream 15 Gm Tube TOPICAL 1 appl BID CONRAD Administration Protocol Doxycycline Hyclate 100 mg 08/07/20 08:00 08/13/20 09:56 Doxycycline Hyclate 100 Mg Tablet PO 100 mg Q12H CONRAD Administration Hydrocortisone 1 appl 08/08/20 15:06 Hydrocortisone 1 % Cream 28.35 Gm Tube TOPICAL TID PRN Itching Protocol Hydroxyzine HCl 25 mg 07/18/20 15:30 08/05/20 23:54 Hydroxyzine Hcl 25 Mg Tablet PO 25 mg BEDTIME PRN Administration Anxiety Magnesium Hydroxide 30 ml 07/18/20 15:30 08/01/20 13:34 Milk Of Magnesia 30 Ml Oral.Susp PO 30 ml DAILY PRN Administration Constipation Olanzapine 10 mg 07/28/20 13:12 08/04/20 14:22 Olanzapine Odt 10 Mg Tab.Rapdis TRANSLINGU 10 mg DAILY PRN Administration Psychosis Olanzapine 10 mg 08/13/20 21:00 Olanzapine Odt 10 Mg Tab.Rapdis TRANSLINGU BEDTIME CONRAD Trazodone HCl 150 mg 07/20/20 21:25 08/06/20 22:21 Trazodone Hcl 50 Mg Tablet PO 150 mg BEDTIME PRN Administration Insomnia Allergies Allergies Allergy/AdvReac Type Severity Reaction Status Date / Time haloperidol [From Haldol] Allergy Unknown Verified 07/22/20 03:38 Assessment & Plan Assessment & Plan (1) Bipolar 1 disorder, mixed, severe: Status: Acute Code(s): F31.63 - Bipolar disorder, current episode mixed, severe, without psychotic features Assessment and Plan: 45 year-old man with bipolar 1 admitted to on 07/18/20 with disorganized joleen, undergoing ECT, who has developed a purulent cellulits overlying the left knee. Currently, his mental status has improved but still symptomatic. Now, he is less agitated and more organized but still labile. # bipolar disorder - medications and ECT as per psychiatry team. - we will continue the tapering off Zydis slowly with the goal to finish it in 2 days. It seems that Zyprexa only sedates him but not helps for mood stabilization. He also has EPS symtoms. We discussed the possiblity of Abilify Maintena or Aristada (accordingly to his insurance) # purulent cellulitis - oral doxycycline for 1 week, stable, no fever, resolved at this time # renal insufficiency - baseline creatinine is high as per PCP practice between 1.4 to 1.7 in the last years. Cr improved, today came on 1.5. Renal studies didn't show any lithiasis # tinea corporis - continue clotrimazole cream CT current treatment plan without change Greater than 50% of the session was spent on counseling and/or coordination of care Reason for contiued inpatient stay Substantial Risk for: harm to self, harm to others, inability to function, rapid decompensation and med/psych decompensation
[2020-08-14 06:10] VITALS: BP 121/78; PULSE 83; RESP 18; TEMP 36.8; O2SAT 97
[2020-08-14] MEDS: Clotrimazole 1 % Cream 15 GM TUBE 1 APPL TOPICAL ×2 (08:40→21:43)
[2020-08-14] MEDS: ARIPiprazole 30 MG TABLET PO (08:40)
--- NOTE | 2020-08-14 10:43 | HO.PSYCHPN ---
Subjective Subjective Date of Service: 08/14/20 Reason For Visit: joleen Subjective Notes: Section 7 and Section 8 Interim History: The patient reports feeling nearly at baseline, no flight of ideas, able to concentrate much better than before, but still residual anxiety and restlesness, no evidence of catatonia or overt manic symptoms. Medication Compliance: Yes Side effects from medications: No Attending Groups: No Review of Systems Review of Systems Yes all other systems are reviewed and are negative Mental Status Exam Mental Status Exam Patient Appearance: Well Grooomed Patient Orientation: Person, Place, Time and Situation Level of Consciousness: Awake and Appropriate Patient Behavior: Appropriate and Good Eye Contact Mood Description: Calm Affect Description: Constricted Patient Cognition Impaired: No Ability to Follow Directions: Good Speech Pattern: Clear Memory Description: Intact Hallucinations: None Delusions: Not Present Thought Process: Slowed Thinking Thought Content: positive for Goal Oriented Judgement: Fair Diagnostics Vital Signs (24Hr): Vital Signs - 24 hr 08/13/20 10:59 08/13/20 13:00 08/13/20 18:00 Temperature 97.3 F 96.6 F L Pulse Rate 111 H 111 H 112 H Respiratory Rate Blood Pressure 135/97 H 135/97 H 121/79 Pulse Oximetry 98 08/14/20 06:10 Temperature 98.3 F Pulse Rate 83 Respiratory Rate 18 Blood Pressure 121/78 Pulse Oximetry 97 Body Mass Index 28.3 Labs Results: 08/03/20 09:03 08/09/20 07:37 Imaging Radiology Impressions: ITS Impressions Foot X-Ray 07/20/20 15:03 IMPRESSION: No fracture seen. Calcaneal spurs and mild degenerative changes. Renal Ultrasound 08/06/20 11:49 IMPRESSION: 1. Patient study limitations. No hydronephrosis or caliectasis. 2. Probable increased renal parenchymal density on left. Nonobstructing calculus left interpolar 0.8 cm. Medications Medications Current Medications Generic Name Dose Route Start Last Admin Trade Name Freq PRN Reason Stop Dose Admin Acetaminophen 650 mg 07/18/20 15:30 08/05/20 18:08 Acetaminophen 325 Mg Tablet PO 650 mg Q6H PRN Administration Headache/Pain Mild Scale (1-3) Acetaminophen 650 mg 08/13/20 08:30 Acetaminophen 325 Mg Tablet PO ONCE PRN Pain, Mild (Pain Scale 1-3) Al Hydroxide/Mg Hydroxide 30 ml 07/18/20 15:30 Magnesium Hydrox/Alum Hydrox 30 Ml Oral.Susp PO Q6H PRN Heartburn/Nausea Aripiprazole 30 mg 07/22/20 09:00 08/14/20 08:40 Aripiprazole 30 Mg Tablet PO 30 mg DAILY CONRAD Administration Clotrimazole 1 appl 07/21/20 21:00 08/14/20 08:40 Clotrimazole 1 % Cream 15 Gm Tube TOPICAL 1 appl BID CONRAD Administration Protocol Hydrocortisone 1 appl 08/08/20 15:06 Hydrocortisone 1 % Cream 28.35 Gm Tube TOPICAL TID PRN Itching Protocol Hydroxyzine HCl 25 mg 07/18/20 15:30 08/05/20 23:54 Hydroxyzine Hcl 25 Mg Tablet PO 25 mg BEDTIME PRN Administration Anxiety Magnesium Hydroxide 30 ml 07/18/20 15:30 08/01/20 13:34 Milk Of Magnesia 30 Ml Oral.Susp PO 30 ml DAILY PRN Administration Constipation Olanzapine 10 mg 07/28/20 13:12 08/04/20 14:22 Olanzapine Odt 10 Mg Tab.Rapdis TRANSLINGU 10 mg DAILY PRN Administration Psychosis Olanzapine 10 mg 08/13/20 21:00 08/13/20 22:11 Olanzapine Odt 10 Mg Tab.Rapdis TRANSLINGU 10 mg BEDTIME CONRAD Administration Trazodone HCl 150 mg 07/20/20 21:25 08/06/20 22:21 Trazodone Hcl 50 Mg Tablet PO 150 mg BEDTIME PRN Administration Insomnia Allergies Allergies Allergy/AdvReac Type Severity Reaction Status Date / Time haloperidol [From Haldol] Allergy Unknown Verified 07/22/20 03:38 Assessment & Plan Assessment & Plan (1) Bipolar 1 disorder, mixed, severe: Status: Acute Code(s): F31.63 - Bipolar disorder, current episode mixed, severe, without psychotic features Assessment and Plan: 45 year-old man with bipolar 1 admitted to on 07/18/20 with disorganized joleen, undergoing ECT, who has developed a purulent cellulits overlying the left knee. Currently, his mental status has improved but still symptomatic. Now, he is less agitated and more organized but still labile. # bipolar disorder - medications and ECT as per psychiatry team. - we stopped Zyprexa today due to EPS symtoms and probably TD symptoms. We discussed the possiblity of Abilify Maintena or Angelina (accordingly to his insurance) # purulent cellulitis - oral doxycycline for 1 week, stable, no fever, resolved at this time # renal insufficiency - baseline creatinine is high as per PCP practice between 1.4 to 1.7 in the last years. Cr improved, today came on 1.5. Renal studies didn't show any lithiasis # tinea corporis - continue clotrimazole cream CT current treatment plan without change Greater than 50% of the session was spent on counseling and/or coordination of care Reason for contiued inpatient stay Substantial Risk for: inability to function and med/psych decompensation
[2020-08-14 16:40] VITALS: BP 134/69; PULSE 119; TEMP 36.6
[2020-08-15] VITALS (13 sets, daily range): BP systolic 122–178; BP diastolic 69–104; PULSE 81–129; RESP 12–20; TEMP 36.3–36.8; O2SAT 95–99
--- NOTE | 2020-08-15 07:51 | HO.ECTPROC ---
ECT Procedure Note Diagnosis/Treatment Date of Service: 08/15/20 Diagnosis: Bipolar disorder Current Treatment Number: 8 Treatment: Series Interval Clinical Notes: Pt with ? rabbit tremor mood concentration much improved changed to bf per dr johnson ECT Settings Device: THYMATRON DGx Electrode Placement: Bifrontal Program/Pulse Width: 0.50 Energy Percent: 100 Seizure Duration By EEG (in seconds): 36 Medications Administration General Anesthetic: Etomidate (14 plus 2 inc 16 next tx ) Muscle Relaxant: Succinylcholine (100) Ancillary Medications Analgesics: Torodol - Pre ECT Anti-emetics: Zofran - Pre ECT Miscillaneous Medications: Propofol, Midazolam and Flumazenil Airway Management Airway Management: Bag Mask Ventilation Treatment Recommendations Notes: inc 120 mg succ next tx inc etom 16 mg
--- NOTE | 2020-08-15 08:47 | HO.ANESPROP2 ---
[facility] Active Problems Active Problems: All Active Problems (Updated 08/03/20 @ 10:09 by Pio Degroot MD) Bipolar 1 disorder, mixed, severe (Acute) Cellulitis and abscess of left leg (Acute) Hyperlipidemia (Acute) Hypertension (Acute) Social History Social History Household Members: Spouse Household Members Other:: Housing: Unknown / Unable to assess Do you presently have visiting nurse or other home services: No Smoking Status: Never smoker Smoked in Last 30 Days: No Patient Interested in Nicotine Replacement: No Patient Given Instructions on How to Stop Smoking: No (N/A) Second Hand Smoke Exposure: No Use of substances other than those prescribed or required for medical reasons: No Substance Use Type Other:: No history of substance use per crisis evaluation Last Used Substance: Unknown Last Used Substance Other:: No substance use reported per crisis evaluation Currently Displaying Signs/Symptoms of Drug Intoxication Withdrawal: No Any prior treatment program specific to substance use: No Have you been hit, kicked, punched, or otherwise hurt by someone within the past year? If so, by whom?: No Do you feel safe in your current relationship?: Yes Is there a partner from a previous relationship who is making you feel unsafe now?: No Are you made to feel afraid or neglected: No Cultural Healthcare Practices: Denominational Advance Directives: No Advance Directives Information Provided: No Advance Directives on File: No Do you have thoughts of harming others: None Do you have a plan to hurt others: No Plan Recently lost weight without trying: Yes service: No Sexual orientation: Straight/Heterosexual Meds Allergies Allergy/AdvReac Type Severity Reaction Status Date / Time haloperidol [From Haldol] Allergy Unknown Verified 07/22/20 03:38 Active Medications: Current Medications Generic Name Dose Route Start Last Admin Trade Name Freq PRN Reason Stop Dose Admin Acetaminophen 650 mg 07/18/20 15:30 08/05/20 18:08 Acetaminophen 325 Mg Tablet PO 650 mg Q6H PRN Administration Headache/Pain Mild Scale (1-3) Acetaminophen 650 mg 08/13/20 08:30 Acetaminophen 325 Mg Tablet PO ONCE PRN Pain, Mild (Pain Scale 1-3) Al Hydroxide/Mg Hydroxide 30 ml 07/18/20 15:30 Magnesium Hydrox/Alum Hydrox 30 Ml Oral.Susp PO Q6H PRN Heartburn/Nausea Aripiprazole 30 mg 07/22/20 09:00 08/14/20 08:40 Aripiprazole 30 Mg Tablet PO 30 mg DAILY CONRAD Administration Clotrimazole 1 appl 07/21/20 21:00 08/14/20 21:43 Clotrimazole 1 % Cream 15 Gm Tube TOPICAL 1 appl BID CONRAD Administration Protocol Hydrocortisone 1 appl 08/08/20 15:06 Hydrocortisone 1 % Cream 28.35 Gm Tube TOPICAL TID PRN Itching Protocol Hydroxyzine HCl 25 mg 07/18/20 15:30 08/05/20 23:54 Hydroxyzine Hcl 25 Mg Tablet PO 25 mg BEDTIME PRN Administration Anxiety Magnesium Hydroxide 30 ml 07/18/20 15:30 08/01/20 13:34 Milk Of Magnesia 30 Ml Oral.Susp PO 30 ml DAILY PRN Administration Constipation Trazodone HCl 150 mg 07/20/20 21:25 08/06/20 22:21 Trazodone Hcl 50 Mg Tablet PO 150 mg BEDTIME PRN Administration Insomnia Home Medications Medication Instructions Recorded Confirmed Last Taken Type Unobtainable 07/27/20 07/27/20 Unknown History Exam Exam Date and Time: August 15, 2020 0847 Height,Weight and Vital Signs: Height 6 ft 1 in Weight 97.522 kg Last Vital Signs Temp 97.8 F 08/15/20 07:06 Pulse 89 08/15/20 07:06 Resp 17 08/15/20 07:06 BP 138/92 H 08/15/20 07:06 Pulse Ox 97 08/15/20 07:06 Pertinent Lab Results Pertinent Lab Results: Laboratory Tests 07/24/20 07/24/20 07/25/20 08:19 08:19 08:11 WBC RBC Hgb Hct MCV MCH MCHC RDW Plt Count MPV Immature Gran % (Auto) Neut % (Auto) Lymph % (Auto) Morton % (Auto) Eos % (Auto) Baso % (Auto) Lymph # (Auto) Morton # (Auto) Eos # (Auto) Baso # (Auto) Abs Immat Gran (auto) Absolute Neuts (auto) Absolute Nucleated RBC Nucleated RBC % (auto) Sodium 145 148 H Potassium 4.0 4.0 Chloride 108 111 H Carbon Dioxide 23 27 Anion Gap 18 14 BUN 17 H 15 Creatinine 1.63 H 1.67 H Estim Creat Clear Calc 73.9 72.2 Estimated GFR 46 45 Random Glucose 91 Fasting Glucose 93 Calcium 9.3 9.7 Total Bilirubin 0.9 Direct Bilirubin AST 45 H ALT 59 H Alkaline Phosphatase 48 C-Reactive Protein Total Protein 7.3 Albumin 4.4 Triglycerides Cholesterol LDL Cholesterol, Calc HDL Cholesterol TSH 0.95 Urine Color Urine Appearance Urine pH Ur Specific Sloan Urine Protein Urine Glucose (UA) Urine Ketones Urine Blood Urine Nitrite Ur Leukocyte Esterase Urine RBC Urine WBC Ur Squamous Epith Cells Urine Bacteria U Random Total Protein Ur Random Sodium Urine Creatinine Protein/Creatinin Ratio Carbamazepine [place] 0.36 L 07/27/20 07/27/20 07/28/20 08:24 08:24 07:51 WBC 5.8 RBC 3.91 L Hgb 12.0 L Hct 35.5 L MCV 90.8 MCH 30.7 MCHC 33.8 RDW 13.5 Plt Count 204 MPV 9.4 Immature Gran % (Auto) 0.3 Neut % (Auto) 61.6 Lymph % (Auto) 18.4 L Morton % (Auto) 10.9 Eos % (Auto) 8.5 H Baso % (Auto) 0.3 Lymph # (Auto) 1.1 L Morton # (Auto) 0.6 Eos # (Auto) 0.5 H Baso # (Auto) 0.0 Abs Immat Gran (auto) 0.02 Absolute Neuts (auto) 3.5 Absolute Nucleated RBC 0.000 Nucleated RBC % (auto) 0.0 Sodium 147 H 146 H Potassium 3.9 3.8 Chloride 111 H 110 H Carbon Dioxide 26 23 Anion Gap 14 17 BUN 21 H 22 H Creatinine 1.86 H 1.93 H Estim Creat Clear Calc 64.8 62.4 Estimated GFR 40 38 Random Glucose 82 104 Fasting Glucose Calcium 8.8 D 9.2 Total Bilirubin Direct Bilirubin AST ALT Alkaline Phosphatase C-Reactive Protein Total Protein Albumin Triglycerides Cholesterol LDL Cholesterol, Calc HDL Cholesterol TSH Urine Color Urine Appearance Urine pH Ur Specific Sloan Urine Protein Urine Glucose (UA) Urine Ketones Urine Blood Urine Nitrite Ur Leukocyte Esterase Urine RBC Urine WBC Ur Squamous Epith Cells Urine Bacteria U Random Total Protein Ur Random Sodium Urine Creatinine Protein/Creatinin Ratio Carbamazepine [place] 07/29/20 07/31/20 07/31/20 08:22 08:26 08:26 WBC RBC Hgb Hct MCV MCH MCHC RDW Plt Count MPV Immature Gran % (Auto) Neut % (Auto) Lymph % (Auto) Morton % (Auto) Eos % (Auto) Baso % (Auto) Lymph # (Auto) Morton # (Auto) Eos # (Auto) Baso # (Auto) Abs Immat Gran (auto) Absolute Neuts (auto) Absolute Nucleated RBC Nucleated RBC % (auto) Sodium 147 H 144 Potassium 3.9 4.3 Chloride 112 H 108 Carbon Dioxide 23 26 Anion Gap 16 14 BUN 16 18 H Creatinine 1.71 H 2.00 H Estim Creat Clear Calc 70.5 60.2 Estimated GFR 44 37 Random Glucose 105 94 Fasting Glucose Calcium 9.4 9.0 Total Bilirubin 0.7 Direct Bilirubin 0.3 AST 18 D ALT 28 Alkaline Phosphatase 54 C-Reactive Protein Total Protein 6.5 Albumin 3.9 Triglycerides Cholesterol LDL Cholesterol, Calc HDL Cholesterol TSH Urine Color Urine Appearance Urine pH Ur Specific Sloan Urine Protein Urine Glucose (UA) Urine Ketones Urine Blood Urine Nitrite Ur Leukocyte Esterase Urine RBC Urine WBC Ur Squamous Epith Cells Urine Bacteria U Random Total Protein Ur Random Sodium Urine Creatinine Protein/Creatinin Ratio Carbamazepine [place] 07/31/20 08/03/20 08/03/20 08:26 09:03 09:03 WBC 6.4 RBC 4.36 L Hgb 13.1 L Hct 39.7 L MCV 91.1 MCH 30.0 MCHC 33.0 RDW 12.8 Plt Count 265 D MPV 9.5 Immature Gran % (Auto) 0.8 H Neut % (Auto) 51.9 Lymph % (Auto) 30.2 Morton % (Auto) 11.2 H Eos % (Auto) 5.6 H Baso % (Auto) 0.3 Lymph # (Auto) 1.9 Morton # (Auto) 0.7 Eos # (Auto) 0.4 Baso # (Auto) 0.0 Abs Immat Gran (auto) 0.05 H Absolute Neuts (auto) 3.3 Absolute Nucleated RBC 0.000 Nucleated RBC % (auto) 0.0 Sodium 144 Potassium 4.8 Chloride 107 Carbon Dioxide 23 Anion Gap 19 BUN 16 Creatinine 1.85 H Estim Creat Clear Calc 65.1 Estimated GFR 40 Random Glucose 103 Fasting Glucose Calcium 9.2 Total Bilirubin Direct Bilirubin AST ALT Alkaline Phosphatase C-Reactive Protein 8.22 H Total Protein Albumin Triglycerides Cholesterol LDL Cholesterol, Calc HDL Cholesterol TSH Urine Color Urine Appearance Urine pH Ur Specific Sloan Urine Protein Urine Glucose (UA) Urine Ketones Urine Blood Urine Nitrite Ur Leukocyte Esterase Urine RBC Urine WBC Ur Squamous Epith Cells Urine Bacteria U Random Total Protein Ur Random Sodium Urine Creatinine Protein/Creatinin Ratio Carbamazepine 6.1 [place] 08/07/20 08/07/20 08/09/20 14:14 14:14 07:37 WBC RBC Hgb Hct MCV MCH MCHC RDW Plt Count MPV Immature Gran % (Auto) Neut % (Auto) Lymph % (Auto) Morton % (Auto) Eos % (Auto) Baso % (Auto) Lymph # (Auto) Morton # (Auto) Eos # (Auto) Baso # (Auto) Abs Immat Gran (auto) Absolute Neuts (auto) Absolute Nucleated RBC Nucleated RBC % (auto) Sodium 142 Potassium 3.9 Chloride 107 Carbon Dioxide 26 Anion Gap 13 BUN 18 H Creatinine 1.50 H Estim Creat Clear Calc 79.8 Estimated GFR 51 Random Glucose 102 Fasting Glucose Calcium 9.0 Total Bilirubin Direct Bilirubin AST ALT Alkaline Phosphatase C-Reactive Protein Total Protein Albumin Triglycerides 167 Cholesterol 181 LDL Cholesterol, Calc 119 HDL Cholesterol 29 TSH Urine Color YELLOW Urine Appearance CLEAR Urine pH 6.0 Ur Specific Sloan 1.010 Urine Protein NEG Urine Glucose (UA) NEG Urine Ketones NEG Urine Blood NEG Urine Nitrite NEG Ur Leukocyte Esterase NEG Urine RBC 0-2 Urine WBC 0-2 Ur Squamous Epith Cells TRACE Urine Bacteria NONE U Random Total Protein 11 Ur Random Sodium < 20.0 Urine Creatinine 62.97 Protein/Creatinin Ratio 0.17 Carbamazepine [place] Airway Mallampati Class: III TM Dist: >3cm Neck ROM: Full Heart: RRR Lungs: CTA
[2020-08-15] MEDS: LORazepam 2 MG/ML VIAL 1 MG IVPUSH (09:48)
--- NOTE | 2020-08-15 09:48 | HO.ECTPROC ---
ECT Procedure Note Diagnosis/Treatment Date of Service: 08/15/20 Diagnosis: Bipolar disorder ECT Settings Device: THYMATRON DGx
[2020-08-15] MEDS: Propranolol HCL 10 MG TABLET PO (10:01)
[2020-08-15] MEDS: ARIPiprazole 30 MG TABLET PO (10:46)
[2020-08-15] MEDS: Clotrimazole 1 % Cream 15 GM TUBE 1 APPL TOPICAL ×2 (10:47→21:36)
[2020-08-16 06:26] VITALS: BP 137/90; PULSE 99; RESP 18; TEMP 36.3; O2SAT 97
[2020-08-16 07:00] VITALS: BMI 28.6
[2020-08-16] MEDS: ARIPiprazole 30 MG TABLET PO (08:30)
[2020-08-16 09:00] VITALS: BP 138/80; PULSE 98; RESP 14; TEMP 36.8; O2SAT 98
[2020-08-16] MEDS: Clotrimazole 1 % Cream 15 GM TUBE 1 APPL TOPICAL ×2 (09:03→21:15)
--- NOTE | 2020-08-16 09:35 | HO.PSYCHPN ---
Subjective Subjective Date of Service: 08/15/20 Reason For Visit: joleen Subjective Notes: Section 7 and Section 8 Interim History: The patient has been visible in the unit, alert and oriented. No evidence of catatonia. We will have a family meeting today at 11 AM and discuss discharge planning. Medication Compliance: Yes Side effects from medications: Yes (Probably TD symptoms with jaw movements) Attending Groups: No Review of Systems Acute medical concerns: No Medical Review of Systems: unchanged Mental Status Exam Mental Status Exam Patient Appearance: Well Grooomed Patient Orientation: Person, Place, Time and Situation Level of Consciousness: Awake and Appropriate Patient Behavior: Appropriate Mood Description: Calm Affect Description: Calm and Appropriate Patient Cognition Impaired: No Ability to Follow Directions: Good Speech Pattern: Clear Memory Description: Intact Hallucinations: None Delusions: Not Present Thought Process: Goal Oriented Thought Content: positive for Intact Judgement: Fair Diagnostics Vital Signs (24Hr): Vital Signs - 24 hr 08/15/20 09:40 08/15/20 09:55 08/15/20 10:01 Temperature 97.7 F Pulse Rate 121 H 107 H 109 H Respiratory Rate 20 17 Blood Pressure 178/94 H 153/82 H 153/82 H Pulse Oximetry 99 96 08/15/20 11:45 08/15/20 13:00 08/15/20 16:30 Temperature 97.3 F 98.3 F 97.6 F Pulse Rate 94 81 92 Respiratory Rate 14 12 18 Blood Pressure 130/79 131/73 127/76 Pulse Oximetry 97 98 95 08/16/20 06:26 Temperature 97.3 F Pulse Rate 99 Respiratory Rate 18 Blood Pressure 137/90 H Pulse Oximetry 97 Body Mass Index 28.3 Labs Results: 08/03/20 09:03 08/09/20 07:37 Imaging Radiology Impressions: ITS Impressions Foot X-Ray 07/20/20 15:03 IMPRESSION: No fracture seen. Calcaneal spurs and mild degenerative changes. Renal Ultrasound 08/06/20 11:49 IMPRESSION: 1. Patient study limitations. No hydronephrosis or caliectasis. 2. Probable increased renal parenchymal density on left. Nonobstructing calculus left interpolar 0.8 cm. Medications Medications Current Medications Generic Name Dose Route Start Last Admin Trade Name Freq PRN Reason Stop Dose Admin Acetaminophen 650 mg 07/18/20 15:30 08/05/20 18:08 Acetaminophen 325 Mg Tablet PO 650 mg Q6H PRN Administration Headache/Pain Mild Scale (1-3) Acetaminophen 650 mg 08/13/20 08:30 Acetaminophen 325 Mg Tablet PO ONCE PRN Pain, Mild (Pain Scale 1-3) Acetaminophen 650 mg 08/15/20 08:49 Acetaminophen 325 Mg Tablet PO ONCE PRN Pain, Mild (Pain Scale 1-3) Al Hydroxide/Mg Hydroxide 30 ml 07/18/20 15:30 Magnesium Hydrox/Alum Hydrox 30 Ml Oral.Susp PO Q6H PRN Heartburn/Nausea Aripiprazole 30 mg 07/22/20 09:00 08/16/20 08:30 Aripiprazole 30 Mg Tablet PO 30 mg DAILY CONRAD Administration Clotrimazole 1 appl 07/21/20 21:00 08/16/20 09:03 Clotrimazole 1 % Cream 15 Gm Tube TOPICAL 1 appl BID CONRAD Administration Protocol Hydrocortisone 1 appl 08/08/20 15:06 Hydrocortisone 1 % Cream 28.35 Gm Tube TOPICAL TID PRN Itching Protocol Hydroxyzine HCl 25 mg 07/18/20 15:30 08/05/20 23:54 Hydroxyzine Hcl 25 Mg Tablet PO 25 mg BEDTIME PRN Administration Anxiety Magnesium Hydroxide 30 ml 07/18/20 15:30 08/01/20 13:34 Milk Of Magnesia 30 Ml Oral.Susp PO 30 ml DAILY PRN Administration Constipation Non-Formulary Medication 12.5 mg 08/16/20 13:00 Tetrabenazine PO DAILY CONRAD Trazodone HCl 150 mg 07/20/20 21:25 08/06/20 22:21 Trazodone Hcl 50 Mg Tablet PO 150 mg BEDTIME PRN Administration Insomnia Allergies Allergies Allergy/AdvReac Type Severity Reaction Status Date / Time haloperidol [From Haldol] Allergy Unknown Verified 07/22/20 03:38 Assessment & Plan Assessment & Plan (1) Bipolar 1 disorder, mixed, severe: Status: Acute Code(s): F31.63 - Bipolar disorder, current episode mixed, severe, without psychotic features Assessment and Plan: 45 year-old man with bipolar 1 admitted to on 07/18/20 with disorganized joleen, undergoing ECT, who has developed a purulent cellulits overlying the left knee. Currently, his mental status has improved but still symptomatic. Now, he is less agitated and more organized, remark improvement since ECT was started. # bipolar disorder - medications and ECT as per psychiatry team. - we stopped Zyprexa today due to EPS symtoms and probably TD symptoms. We discussed the possiblity of Nenamelonyleninlaura Riveramychal or Vicentestada (accordingly to his insurance). - family meeting to get collateral if he is at baselines # purulent cellulitis - oral doxycycline for 1 week, stable, no fever, resolved at this time # renal insufficiency - baseline creatinine is high as per PCP practice between 1.4 to 1.7 in the last years. Cr improved, today came on 1.5. Renal studies didn't show any lithiasis # tinea corporis - continue clotrimazole cream CT current treatment plan without change Greater than 50% of the session was spent on counseling and/or coordination of care Reason for contiued inpatient stay Substantial Risk for: rapid decompensation and med/psych decompensation
--- NOTE | 2020-08-16 09:39 | HO.PSYCHPN ---
Subjective Subjective Date of Service: 08/16/20 Reason For Visit: joleen Interim History: The patient remains with involuntary movements on his jaw but he does not feel upset of that. Still, very mild cogwheel. We started yesterday a low dose of alternative Ingrezza with no side effects. He agreed to start a low dose of Klonopin Medication Compliance: Yes Side effects from medications: No Attending Groups: No Review of Systems Acute medical concerns: No Medical Review of Systems: unchanged Mental Status Exam Mental Status Exam Patient Appearance: Well Grooomed Patient Orientation: Person, Place, Time and Situation Level of Consciousness: Awake and Appropriate Patient Behavior: Appropriate Mood Description: Calm Affect Description: Calm and Happy Patient Cognition Impaired: No Ability to Follow Directions: Excellent Speech Pattern: Clear Memory Description: Intact Hallucinations: None Delusions: Not Present Thought Process: Goal Oriented Thought Content: positive for Intact Judgement: Good Diagnostics Vital Signs (24Hr): Vital Signs - 24 hr 08/15/20 09:40 08/15/20 09:55 08/15/20 10:01 Temperature 97.7 F Pulse Rate 121 H 107 H 109 H Respiratory Rate 20 17 Blood Pressure 178/94 H 153/82 H 153/82 H Pulse Oximetry 99 96 08/15/20 11:45 08/15/20 13:00 08/15/20 16:30 Temperature 97.3 F 98.3 F 97.6 F Pulse Rate 94 81 92 Respiratory Rate 14 12 18 Blood Pressure 130/79 131/73 127/76 Pulse Oximetry 97 98 95 08/16/20 06:26 Temperature 97.3 F Pulse Rate 99 Respiratory Rate 18 Blood Pressure 137/90 H Pulse Oximetry 97 Body Mass Index 28.3 Labs Results: 08/03/20 09:03 08/09/20 07:37 Imaging Radiology Impressions: ITS Impressions Foot X-Ray 07/20/20 15:03 IMPRESSION: No fracture seen. Calcaneal spurs and mild degenerative changes. Renal Ultrasound 08/06/20 11:49 IMPRESSION: 1. Patient study limitations. No hydronephrosis or caliectasis. 2. Probable increased renal parenchymal density on left. Nonobstructing calculus left interpolar 0.8 cm. Medications Medications Current Medications Generic Name Dose Route Start Last Admin Trade Name Freq PRN Reason Stop Dose Admin Acetaminophen 650 mg 07/18/20 15:30 08/05/20 18:08 Acetaminophen 325 Mg Tablet PO 650 mg Q6H PRN Administration Headache/Pain Mild Scale (1-3) Acetaminophen 650 mg 08/13/20 08:30 Acetaminophen 325 Mg Tablet PO ONCE PRN Pain, Mild (Pain Scale 1-3) Acetaminophen 650 mg 08/15/20 08:49 Acetaminophen 325 Mg Tablet PO ONCE PRN Pain, Mild (Pain Scale 1-3) Al Hydroxide/Mg Hydroxide 30 ml 07/18/20 15:30 Magnesium Hydrox/Alum Hydrox 30 Ml Oral.Susp PO Q6H PRN Heartburn/Nausea Aripiprazole 30 mg 07/22/20 09:00 08/16/20 08:30 Aripiprazole 30 Mg Tablet PO 30 mg DAILY CONRAD Administration Clotrimazole 1 appl 07/21/20 21:00 08/16/20 09:03 Clotrimazole 1 % Cream 15 Gm Tube TOPICAL 1 appl BID CONRAD Administration Protocol Hydrocortisone 1 appl 08/08/20 15:06 Hydrocortisone 1 % Cream 28.35 Gm Tube TOPICAL TID PRN Itching Protocol Hydroxyzine HCl 25 mg 07/18/20 15:30 08/05/20 23:54 Hydroxyzine Hcl 25 Mg Tablet PO 25 mg BEDTIME PRN Administration Anxiety Magnesium Hydroxide 30 ml 07/18/20 15:30 08/01/20 13:34 Milk Of Magnesia 30 Ml Oral.Susp PO 30 ml DAILY PRN Administration Constipation Non-Formulary Medication 12.5 mg 08/16/20 13:00 Tetrabenazine PO DAILY CONRAD Trazodone HCl 150 mg 07/20/20 21:25 08/06/20 22:21 Trazodone Hcl 50 Mg Tablet PO 150 mg BEDTIME PRN Administration Insomnia Allergies Allergies Allergy/AdvReac Type Severity Reaction Status Date / Time haloperidol [From Haldol] Allergy Unknown Verified 07/22/20 03:38 Assessment & Plan Assessment & Plan (1) Bipolar 1 disorder, mixed, severe: Status: Acute Code(s): F31.63 - Bipolar disorder, current episode mixed, severe, without psychotic features (2) Dyskinesia, tardive: Status: Acute Code(s): G24.01 - Drug induced subacute dyskinesia Assessment and Plan: 45 year-old man with bipolar 1 admitted to on 07/18/20 with disorganized joleen, undergoing ECT, who has developed a purulent cellulits overlying the left knee. Currently, his mental status has improved but still symptomatic. Now, he is less agitated and more organized, remark improvement since ECT was started. # bipolar disorder - medications and ECT as per psychiatry team. - we stopped Zyprexa today due to EPS symtoms and probably TD symptoms. We discussed the possiblity of Abilify Maintena or Aristada (accordingly to his insurance). - family meeting to get collateral if he is at baselines # TD - Started on Tetrabenazine with no side effects or still results. - Add a low dose of Klonopin 0.5 mg po bid. # purulent cellulitis - oral doxycycline for 1 week, stable, no fever, resolved at this time. # renal insufficiency - baseline creatinine is high as per PCP practice between 1.4 to 1.7 in the last years. Cr improved, today came on 1.5. Renal studies didn't show any lithiasis. Problem resolved. # tinea corporis - continue clotrimazole cream CT current treatment plan without change Greater than 50% of the session was spent on counseling and/or coordination of care Reason for contiued inpatient stay Substantial Risk for: rapid decompensation and med/psych decompensation
[2020-08-16] MEDS: clonazePAM 0.5 MG TABLET PO (09:49)
[2020-08-16 13:00] VITALS: BP 126/78; PULSE 80; RESP 14; TEMP 36.8; O2SAT 98
[2020-08-16 17:44] VITALS: BP 134/84; PULSE 88; RESP 18; TEMP 36.6; O2SAT 97
[2020-08-17] VITALS (10 sets, daily range): BP systolic 132–154; BP diastolic 74–127; PULSE 65–108; RESP 14–18; TEMP 36.3–36.8; O2SAT 95–100
--- NOTE | 2020-08-17 07:59 | HO.ECTPROC ---
ECT Procedure Note Diagnosis/Treatment Date of Service: 08/17/20 Diagnosis: Bipolar disorder Previous ECT Date: 08/15/20 Current Treatment Number: 9 Treatment: Series Interval Clinical Notes: improving ECT Settings Device: THYMATRON DGx Electrode Placement: Bifrontal Program/Pulse Width: 0.50 Energy Percent: 100 Seizure Duration By EEG (in seconds): 46 Medications Administration General Anesthetic: Etomidate (16) Muscle Relaxant: Succinylcholine (100) Ancillary Medications Anti-emetics: Zofran - Pre ECT Airway Management Airway Management: Bag Mask Ventilation Treatment Recommendations Notes: post ect confusional state
--- NOTE | 2020-08-17 08:12 | P.CONAN_ITS ---
[facility] Active Problems Active Problems: All Active Problems (Updated 08/16/20 @ 09:42 by Alexander ott) Bipolar 1 disorder, mixed, severe (Acute) Dyskinesia, tardive (Acute) Cellulitis and abscess of left leg (Acute) Hyperlipidemia (Acute) Hypertension (Acute) Social History Social History Household Members: Spouse Household Members Other:: Housing: Unknown / Unable to assess Do you presently have visiting nurse or other home services: No Smoking Status: Never smoker Smoked in Last 30 Days: No Patient Interested in Nicotine Replacement: No Patient Given Instructions on How to Stop Smoking: No (N/A) Second Hand Smoke Exposure: No Use of substances other than those prescribed or required for medical reasons: No Substance Use Type Other:: No history of substance use per crisis evaluation Last Used Substance: Unknown Last Used Substance Other:: No substance use reported per crisis evaluation Currently Displaying Signs/Symptoms of Drug Intoxication Withdrawal: No Any prior treatment program specific to substance use: No Have you been hit, kicked, punched, or otherwise hurt by someone within the past year? If so, by whom?: No Do you feel safe in your current relationship?: Yes Is there a partner from a previous relationship who is making you feel unsafe now?: No Are you made to feel afraid or neglected: No Cultural Healthcare Practices: Yarsani Advance Directives: No Advance Directives Information Provided: No Advance Directives on File: No Do you have thoughts of harming others: None Do you have a plan to hurt others: No Plan Recently lost weight without trying: Yes service: No Sexual orientation: Straight/Heterosexual Meds Allergies Allergy/AdvReac Type Severity Reaction Status Date / Time haloperidol [From Haldol] Allergy Unknown Verified 07/22/20 03:38 Active Medications: Current Medications Generic Name Dose Route Start Last Admin Trade Name Freq PRN Reason Stop Dose Admin Acetaminophen 650 mg 07/18/20 15:30 08/05/20 18:08 Acetaminophen 325 Mg Tablet PO 650 mg Q6H PRN Administration Headache/Pain Mild Scale (1-3) Acetaminophen 650 mg 08/13/20 08:30 Acetaminophen 325 Mg Tablet PO ONCE PRN Pain, Mild (Pain Scale 1-3) Acetaminophen 650 mg 08/15/20 08:49 Acetaminophen 325 Mg Tablet PO ONCE PRN Pain, Mild (Pain Scale 1-3) Al Hydroxide/Mg Hydroxide 30 ml 07/18/20 15:30 Magnesium Hydrox/Alum Hydrox 30 Ml Oral.Susp PO Q6H PRN Heartburn/Nausea Aripiprazole 30 mg 07/22/20 09:00 08/16/20 08:30 Aripiprazole 30 Mg Tablet PO 30 mg DAILY CONRAD Administration Clonazepam 0.5 mg 08/16/20 09:45 08/16/20 21:18 Clonazepam 0.5 Mg Tablet PO Not Given BID CONRAD Clotrimazole 1 appl 07/21/20 21:00 08/16/20 21:15 Clotrimazole 1 % Cream 15 Gm Tube TOPICAL 1 appl BID CONRAD Administration Protocol Hydrocortisone 1 appl 08/08/20 15:06 Hydrocortisone 1 % Cream 28.35 Gm Tube TOPICAL TID PRN Itching Protocol Magnesium Hydroxide 30 ml 07/18/20 15:30 08/01/20 13:34 Milk Of Magnesia 30 Ml Oral.Susp PO 30 ml DAILY PRN Administration Constipation Non-Formulary Medication 12.5 mg 08/16/20 13:00 08/16/20 13:59 Tetrabenazine PO 12.5 mg DAILY CONRAD Administration Trazodone HCl 150 mg 07/20/20 21:25 08/06/20 22:21 Trazodone Hcl 50 Mg Tablet PO 150 mg BEDTIME PRN Administration Insomnia Home Medications Medication Instructions Recorded Confirmed Last Taken Type Unobtainable 07/27/20 07/27/20 Unknown History Exam Exam Date and Time: August 17, 2020 0812 Height,Weight and Vital Signs: Height 6 ft 1 in Weight 98.5 kg Last Vital Signs Temp 97.3 F 08/17/20 05:58 Pulse 94 08/17/20 05:58 Resp 18 08/17/20 05:58 BP 133/97 H 08/17/20 05:58 Pulse Ox 98 08/17/20 05:58 Pertinent Lab Results Pertinent Lab Results: Laboratory Tests 07/24/20 07/24/20 07/25/20 08:19 08:19 08:11 WBC RBC Hgb Hct MCV MCH MCHC RDW Plt Count MPV Immature Gran % (Auto) Neut % (Auto) Lymph % (Auto) [place] % (Auto) Eos % (Auto) Baso % (Auto) Lymph # (Auto) [place] # (Auto) Eos # (Auto) Baso # (Auto) Abs Immat Gran (auto) Absolute Neuts (auto) Absolute Nucleated RBC Nucleated RBC % (auto) Sodium 145 148 H Potassium 4.0 4.0 Chloride 108 111 H Carbon Dioxide 23 27 Anion Gap 18 14 BUN 17 H 15 Creatinine 1.63 H 1.67 H Estim Creat Clear Calc 73.9 72.2 Estimated GFR 46 45 Random Glucose 91 Fasting Glucose 93 Calcium 9.3 9.7 Total Bilirubin 0.9 Direct Bilirubin AST 45 H ALT 59 H Alkaline Phosphatase 48 C-Reactive Protein Total Protein 7.3 Albumin 4.4 Triglycerides Cholesterol LDL Cholesterol, Calc HDL Cholesterol TSH 0.95 Urine Color Urine Appearance Urine pH Ur Specific [place] Urine Protein Urine Glucose (UA) Urine Ketones Urine Blood Urine Nitrite Ur Leukocyte Esterase Urine RBC Urine WBC Ur Squamous Epith Cells Urine Bacteria U Random Total Protein Ur Random Sodium Urine Creatinine Protein/Creatinin Ratio Carbamazepine [place] 0.36 L 07/27/20 07/27/20 07/28/20 08:24 08:24 07:51 WBC 5.8 RBC 3.91 L Hgb 12.0 L Hct 35.5 L MCV 90.8 MCH 30.7 MCHC 33.8 RDW 13.5 Plt Count 204 MPV 9.4 Immature Gran % (Auto) 0.3 Neut % (Auto) 61.6 Lymph % (Auto) 18.4 L [place] % (Auto) 10.9 Eos % (Auto) 8.5 H Baso % (Auto) 0.3 Lymph # (Auto) 1.1 L [place] # (Auto) 0.6 Eos # (Auto) 0.5 H Baso # (Auto) 0.0 Abs Immat Gran (auto) 0.02 Absolute Neuts (auto) 3.5 Absolute Nucleated RBC 0.000 Nucleated RBC % (auto) 0.0 Sodium 147 H 146 H Potassium 3.9 3.8 Chloride 111 H 110 H Carbon Dioxide 26 23 Anion Gap 14 17 BUN 21 H 22 H Creatinine 1.86 H 1.93 H Estim Creat Clear Calc 64.8 62.4 Estimated GFR 40 38 Random Glucose 82 104 Fasting Glucose Calcium 8.8 D 9.2 Total Bilirubin Direct Bilirubin AST ALT Alkaline Phosphatase C-Reactive Protein Total Protein Albumin Triglycerides Cholesterol LDL Cholesterol, Calc HDL Cholesterol TSH Urine Color Urine Appearance Urine pH Ur Specific [place] Urine Protein Urine Glucose (UA) Urine Ketones Urine Blood Urine Nitrite Ur Leukocyte Esterase Urine RBC Urine WBC Ur Squamous Epith Cells Urine Bacteria U Random Total Protein Ur Random Sodium Urine Creatinine Protein/Creatinin Ratio Carbamazepine [place] 07/29/20 07/31/20 07/31/20 08:22 08:26 08:26 WBC RBC Hgb Hct MCV MCH MCHC RDW Plt Count MPV Immature Gran % (Auto) Neut % (Auto) Lymph % (Auto) [place] % (Auto) Eos % (Auto) Baso % (Auto) Lymph # (Auto) [place] # (Auto) Eos # (Auto) Baso # (Auto) Abs Immat Gran (auto) Absolute Neuts (auto) Absolute Nucleated RBC Nucleated RBC % (auto) Sodium 147 H 144 Potassium 3.9 4.3 Chloride 112 H 108 Carbon Dioxide 23 26 Anion Gap 16 14 BUN 16 18 H Creatinine 1.71 H 2.00 H Estim Creat Clear Calc 70.5 60.2 Estimated GFR 44 37 Random Glucose 105 94 Fasting Glucose Calcium 9.4 9.0 Total Bilirubin 0.7 Direct Bilirubin 0.3 AST 18 D ALT 28 Alkaline Phosphatase 54 C-Reactive Protein Total Protein 6.5 Albumin 3.9 Triglycerides Cholesterol LDL Cholesterol, Calc HDL Cholesterol TSH Urine Color Urine Appearance Urine pH Ur Specific [place] Urine Protein Urine Glucose (UA) Urine Ketones Urine Blood Urine Nitrite Ur Leukocyte Esterase Urine RBC Urine WBC Ur Squamous Epith Cells Urine Bacteria U Random Total Protein Ur Random Sodium Urine Creatinine Protein/Creatinin Ratio Carbamazepine [place] 07/31/20 08/03/20 08/03/20 08:26 09:03 09:03 WBC 6.4 RBC 4.36 L Hgb 13.1 L Hct 39.7 L MCV 91.1 MCH 30.0 MCHC 33.0 RDW 12.8 Plt Count 265 D MPV 9.5 Immature Gran % (Auto) 0.8 H Neut % (Auto) 51.9 Lymph % (Auto) 30.2 [place] % (Auto) 11.2 H Eos % (Auto) 5.6 H Baso % (Auto) 0.3 Lymph # (Auto) 1.9 [place] # (Auto) 0.7 Eos # (Auto) 0.4 Baso # (Auto) 0.0 Abs Immat Gran (auto) 0.05 H Absolute Neuts (auto) 3.3 Absolute Nucleated RBC 0.000 Nucleated RBC % (auto) 0.0 Sodium 144 Potassium 4.8 Chloride 107 Carbon Dioxide 23 Anion Gap 19 BUN 16 Creatinine 1.85 H Estim Creat Clear Calc 65.1 Estimated GFR 40 Random Glucose 103 Fasting Glucose Calcium 9.2 Total Bilirubin Direct Bilirubin AST ALT Alkaline Phosphatase C-Reactive Protein 8.22 H Total Protein Albumin Triglycerides Cholesterol LDL Cholesterol, Calc HDL Cholesterol TSH Urine Color Urine Appearance Urine pH Ur Specific [place] Urine Protein Urine Glucose (UA) Urine Ketones Urine Blood Urine Nitrite Ur Leukocyte Esterase Urine RBC Urine WBC Ur Squamous Epith Cells Urine Bacteria U Random Total Protein Ur Random Sodium Urine Creatinine Protein/Creatinin Ratio Carbamazepine 6.1 [place] 08/07/20 08/07/20 08/09/20 14:14 14:14 07:37 WBC RBC Hgb Hct MCV MCH MCHC RDW Plt Count MPV Immature Gran % (Auto) Neut % (Auto) Lymph % (Auto) [place] % (Auto) Eos % (Auto) Baso % (Auto) Lymph # (Auto) [place] # (Auto) Eos # (Auto) Baso # (Auto) Abs Immat Gran (auto) Absolute Neuts (auto) Absolute Nucleated RBC Nucleated RBC % (auto) Sodium 142 Potassium 3.9 Chloride 107 Carbon Dioxide 26 Anion Gap 13 BUN 18 H Creatinine 1.50 H Estim Creat Clear Calc 79.8 Estimated GFR 51 Random Glucose 102 Fasting Glucose Calcium 9.0 Total Bilirubin Direct Bilirubin AST ALT Alkaline Phosphatase C-Reactive Protein Total Protein Albumin Triglycerides 167 Cholesterol 181 LDL Cholesterol, Calc 119 HDL Cholesterol 29 TSH Urine Color YELLOW Urine Appearance CLEAR Urine pH 6.0 Ur Specific [place] 1.010 Urine Protein NEG Urine Glucose (UA) NEG Urine Ketones NEG Urine Blood NEG Urine Nitrite NEG Ur Leukocyte Esterase NEG Urine RBC 0-2 Urine WBC 0-2 Ur Squamous Epith Cells TRACE Urine Bacteria NONE U Random Total Protein 11 Ur Random Sodium < 20.0 Urine Creatinine 62.97 Protein/Creatinin Ratio 0.17 Carbamazepine [place] Airway Mallampati Class: II TM Dist: >3cm Neck ROM: Full Assessment and Plan Assessment Anesthesia Assessment: Anesthesia Plan Discussed and Chart Reviewed Final Anesthetic Review NPO: Yes ASA Class: II Final Preanesthetic Review: No Changes in Pt Med Stat, Meds/Allgs Chart Reviewed, Consent Obtained/Reviewed and Anes Risks/Benef Reviewed Patient Risk: Low Procedure Risk: Low Assessment/Block/Sedation in SS: Assess/Block/Sedation-SS Anesthetic Plan Anesthetic Plan: GA Disposition: Standard PACU
[2020-08-17] MEDS: Clotrimazole 1 % Cream 15 GM TUBE 1 APPL TOPICAL (10:11)
[2020-08-17] MEDS: ARIPiprazole 30 MG TABLET PO (10:12)
[2020-08-17] MEDS: clonazePAM 0.5 MG TABLET PO (10:12)
--- NOTE | 2020-08-17 11:16 | P.DS_ITS ---
DS: Providers Provider Date of Service: 08/17/20 Date of admission: 07/18/20 15:03 Date of discharge: 08/17/20 Primary care physician: Aquiles Salgado MD Attending physician on discharge: Alexander Rodriguez DS: Diagnosis Discharge Diagnosis (1) Bipolar 1 disorder, mixed, severe: Status: Acute (2) Dyskinesia, tardive: Status: Acute DS: Medications Discharge Medications Home Medications: Home Medications Medication Instructions Recorded Confirmed Unobtainable 07/27/20 07/27/20 Discharge Plan Discharge Patient Disposition: Home, Self-Care Discharge Diagnosis: Bipolar Disorder Type I most recent episode manic severe with psychosis Referrals: Psychiatrist: Dr. Ervin Gallegos [Other] - 09/05/20 5:00 pm Therapist: [facility] [Other] - 1 Week Aquiles Salgado MD [Primary Care Provider] - 08/24/20 10:00 am (follow up in person. ) Discharge Medications: New trazodone 50 mg Tablet 150 mg PO BEDTIME PRN (Reason: Insomnia) 30 Days Qty: 30 RF: 0 clonazepam 0.5 mg Tablet 0.5 mg PO BID 30 Days Qty: 60 RF: 0 aripiprazole [Abilify] 30 mg Tablet 30 mg PO DAILY 30 Days Qty: 30 RF: 0 Tetrabenazine 12.5 mg PO DAILY 30 Days Qty: 30 RF: 0 No Action Unobtainable RF: 0 Discharge Orders: Discharge Order (Routine); Ordered 08/17/20 Ordered By: Alexander Rodriguez Diet: advance to usual diet Activity on Discharge: As tolerated Stand Alone Forms: Patient Portal Discharge page Care Plan Goals: Continue Care Goal Plans for outpatient Health Concerns: None, patient's renal function is at baseline Plan of Treatment: Continue outpatient treatment Assessment: The patient is an adult male with Bipolar disorder that relapsed on joleen that evolved into psychosis with catatonia after non-compliance with Abilify. He went back to normal after ECT and Abilify. Now back at baseline after a lenghty admission Mental Status Exam Mental Status Exam Patient Appearance: Well Grooomed Patient Orientation: Person, Place, Time and Situation Level of Consciousness: Awake and Appropriate Patient Behavior: Appropriate, Cooperative and Good Eye Contact Mood Description: Calm Affect Description: Appropriate Patient Cognition Impaired: No Ability to Follow Directions: Good Speech Pattern: Clear Memory Description: Intact Hallucinations: None Delusions: Not Present Thought Process: Goal Oriented Thought Content: positive for Intact Judgement: Fair Data Imaging Diagnostic Imaging Impressions Foot X-Ray 07/20/20 15:03 IMPRESSION: No fracture seen. Calcaneal spurs and mild degenerative changes. Renal Ultrasound 08/06/20 11:49 IMPRESSION: 1. Patient study limitations. No hydronephrosis or caliectasis. 2. Probable increased renal parenchymal density on left. Nonobstructing calculus left interpolar 0.8 cm. DS: Summary Hospital Course Hospital Course: The patient was initially admitted from the ED due to manic symptoms. He was non-compliant to Abilify and he relapsed on joleen with elated mood, fast speech, increased energy and eventually worsened with psychotic features elicited by disorganized behavior, disorganized thought process and grandiose delusions, that evolved fast to catatonia. Historically, he had previous episodes of joleen that evolved into psychosis and the only treatment option succesfull was ECT, 15 years ago. Due to psychosis and disorganization, we had to go to court and filed Section 7 and 8 with ECT authorization. We started ECT, he was grossly disorganized that needed to be on 1:1 for several weeks. Eventually, he improved fast after the 5th ECT, with less joleen, less disorganization and his family confirmed that he was back to baseline. 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 We put him back to Abilify 30 mg with fair improvement. On the last days, we noticed TD like symptoms with jaw movements, we tried Klonopin and other medications, with limited improvement. The patient and family is fully aware of this problem and he will discusse with his outpatient prescriber. Also, we discussed the possibility long acting Abilify injection but we didn't start until his involuntary movments improved. No safety concerns. Time spent discussing smoking cessation with patient: 3 to 10 minutes Status at Discharge Functional status at discharge: independent ambulation Overall status at discharge: patient is back to baseline Time Spent with Patient Time attestation: Total time spent providing and/or coordinating discharge services: Time spent: Less than 30 minutes
--- NOTE | 2020-08-17 13:41 | PC.NURSE ---
PT REPORTS READINESS AND AWARENESS FOR DISCHARGE. PT MAINTAINS GOOD EYE CONTACT. PTS FAMILY STATED THAT HE IS AT BASELINE. PT REPORTS THAT HE IS FEELING MUCH BETTER THAN BEFORE'. PT HAS BEEN IN BEHAVIORAL CONTROL. PTS MOOD HAS BEEN CONSISTANTLY PLEASANT. PT REPORTS THAT HE IS NOT HEARING VOICES OR EXPERIENCING VISUAL HALLUCINATIONS. PT HAS NO DESIRE TO HARM HIMSELF OR OTHERS. PT NO LONGER DISPLAYS HYPERSEXUAL OR INTRUSIVE BEHAVIOR. PT I9S GOAL ORIENTED REGARDING MEDICATIONS AND ECT. PT STATED THAT HE NEEDS TO TAKE IT SLOW EASING BACK INTO WORK SO HE DOESNT GET OVERWHELMED . PT IS EATING AND SLEEPING WELL. HE IS INDEPENDENTLY TAKING CARE OF ADLS. PT IS ABLE TO ADVOCATE FOR HIS NEEDS. HE HAS NO REPORTS OF ANXIETY OR DEPRESSION AT THE MOMENT. PT IS ALERT AND ORIENTED X4. PT HAS BEEN EDUCATED REGARDING MEDICATIONS AND WAS RECEPTIVE TO TEACHING. PTS PAPERWORK WILL BE FAXED TO PROVIDERS PER PROTOCOL.
== END 2020-08-17 15:00 | disposition home or self-care (01) | DRG 753 ==
PROVIDERS: Clinical Nurse Specialist Psychiatric/Mental Health; Family Medicine; Internal Medicine; Psychiatry & Neurology Psychiatry; Student in an Organized Health Care Education/Training Program; Admitting Provider Psychiatry & Neurology Psychiatry; PCP Internal Medicine; Visit Provider Psychiatry & Neurology Psychiatry
PROC: (CPT 90870; principal; 2020-07-27 15:00)
PROC: GZB4ZZZ Other Electroconvulsive Therapy (ICD-10-PCS; CPT 90870; principal; 2020-07-30 07:30)
DX: F31.63 Bipolar disorder, current episode mixed, severe, without psychotic features (principal); N17.9 Acute kidney failure, unspecified; E87.0 Hyperosmolality and hypernatremia; G24.01 Drug induced subacute dyskinesia; E78.00 Pure hypercholesterolemia, unspecified; L03.116 Cellulitis of left lower limb; B35.4 Tinea corporis; I10 Essential (primary) hypertension; E86.0 Dehydration; Z79.899 Other long term (current) drug therapy
CPT/HCPCS: 36415; 73620; 76775; 80048; 80053; 80061; 80076; 80156; 80178; 81001; 84156; 84300; 84443; 85025; 86140; 90870; 93005; 99223; 99233; J0330; J1200; J1885; J2060; J2250; J2405

== ENCOUNTER → 2020-08-20 05:57 | Day surgery (SDC) | payer OTHER, SELFPAY ==
[2020-08-20] VITALS (10 sets, daily range): BP systolic 115–151; BP diastolic 66–109; PULSE 80–123; RESP 16–20; TEMP 36.1–36.9; O2SAT 94–100; BMI 28.8
--- NOTE | 2020-08-20 07:00 | MHC.SHP ---
Pre-Procedural Eval Section A The patient is an INPATIENT: No Changes since office visit: No Cold of Flu in the past 2 weeks, No New Medical Problems, No Changes in Medication and No Patient answered all questions The History & Physical has been completed within 30 days and I have reviewed it.: Yes Section B Chief Complaint: depression Allergies: Allergies Allergy/AdvReac Type Severity Reaction Status Date / Time haloperidol [From Haldol] Allergy Unknown Verified 07/22/20 03:38 Plan I have reviewed the history and physical and performed a pertinent physical examination on my patient. No changes have occurred unless specified.
--- NOTE | 2020-08-20 07:03 | HO.ECTPROC ---
ECT Procedure Note Diagnosis/Treatment Date of Service: 08/20/20 Diagnosis: Bipolar disorder Previous ECT Date: 08/17/20 Treatment: Series Interval Clinical Notes: The patient came today AM from home and as per nursing staff, he looked confused, unable to undress without prompts. Also, during the interview of nursing, he was unable to give a reasonable number on his weight. During intake, he reported that he is doing well, reconnecting with family. ECT Settings Device: THYMATRON DGx Electrode Placement: Bifrontal Program/Pulse Width: 0.50 Energy Percent: 100 Seizure Duration By EEG (in seconds): 40 By Motor Observation (in seconds): 28 Medications Administration General Anesthetic: Etomidate (14 mg) Muscle Relaxant: Succinylcholine (100 mg) Ancillary Medications Analgesics: Torodol - Pre ECT Anti-emetics: Zofran - Pre ECT Miscillaneous Medications: Propofol and Flumazenil Airway Management Airway Management: Bag Mask Ventilation Treatment Recommendations No Changes Recommended: No change Pt Tolerated Procedure w/o Issue: Yes
--- NOTE | 2020-08-20 07:04 | P.CONAN_ITS ---
REPLACED BY [facility] Active Problems Active Problems: All Active Problems (Updated 08/16/20 @ 09:42 by Alexander Bansal no) Bipolar 1 disorder, mixed, severe (Acute) Dyskinesia, tardive (Acute) Cellulitis and abscess of left leg (Acute) Hyperlipidemia (Acute) Hypertension (Acute) Social History Social History Household Members: Spouse Housing: Unknown / Unable to assess Smoking Status: Never smoker Second Hand Smoke Exposure: No Advance Directives: No Advance Directives Information Provided: Yes service: No Sexual orientation: Straight/Heterosexual Meds Allergies Allergy/AdvReac Type Severity Reaction Status Date / Time haloperidol [From Haldol] Allergy Unknown Verified 07/22/20 03:38 Home Medications Medication Instructions Recorded Confirmed Last Taken Type Unobtainable 07/27/20 07/27/20 Unknown History Exam Exam Date and Time: August 20, 2020 0704 Height,Weight and Vital Signs: Height 6 ft 1 in Weight 98.883 kg Last Vital Signs Temp 97.0 F 08/20/20 06:56 Pulse 103 H 08/20/20 06:56 Resp 17 08/20/20 06:56 BP 119/89 08/20/20 06:56 Pulse Ox 98 08/20/20 06:56 Airway Mallampati Class: II TM Dist: >3cm Neck ROM: Full Heart: RRR Lungs: CtA Bl Assessment and Plan Assessment Anesthesia Assessment: Anesthesia Plan Discussed and Chart Reviewed Final Anesthetic Review NPO: Yes ASA Class: III Final Preanesthetic Review: No Changes in Pt Med Stat and Consent Obtained/Reviewed Patient Risk: Intermediate Procedure Risk: Intermediate Anesthetic Plan Anesthetic Plan: GA Disposition: Standard PACU
[2020-08-20] MEDS: LORazepam 2 MG/ML VIAL 1 MG IVPUSH (08:14)
--- NOTE | 2020-08-20 08:52 | PC.NURSE ---
0845 ASST PT W CLOTHING CHANGE ON STRETCHER THEN PT ASST TO BS CHAIR, RN COMPLETE CLOTHING CHANGE AND SHOES IV DCD
== END | disposition home or self-care (01) ==
PROVIDERS: PCP Internal Medicine; Visit Provider Psychiatry & Neurology Psychiatry
PROC: (CPT 90870; principal; 2020-08-20 07:30)
DX: F31.9 Bipolar disorder, unspecified (principal); Z88.8 Allergy status to other drugs, medicaments and biological substances
CPT/HCPCS: 90870; J0330; J1885; J2060; J2405

== ENCOUNTER 2020-08-22 06:02 | Day surgery (SDC) | payer OTHER, SELFPAY ==
[2020-08-22] VITALS (9 sets, daily range): BP systolic 103–146; BP diastolic 74–97; PULSE 73–106; RESP 16–21; TEMP 36.2–37.3; O2SAT 94–99; BMI 22.4; BMI 29.0
--- NOTE | 2020-08-22 07:10 | P.CONAN_ITS ---
PENDING SALE TO [facility] Active Problems Active Problems: All Active Problems (Updated 08/16/20 @ 09:42 by Alexander Bansal no) Bipolar 1 disorder, mixed, severe (Acute) Dyskinesia, tardive (Acute) Cellulitis and abscess of left leg (Acute) Hyperlipidemia (Acute) Hypertension (Acute) Social History Social History Household Members: Spouse Household Members Other:: Housing: Unknown / Unable to assess Smoking Status: Never smoker Second Hand Smoke Exposure: No Are you DNR?: No Advance Directives: No Advance Directives Information Provided: Yes service: No Sexual orientation: Straight/Heterosexual Meds Allergies Allergy/AdvReac Type Severity Reaction Status Date / Time haloperidol [From Haldol] Allergy Unknown Verified 07/22/20 03:38 Home Medications Medication Instructions Recorded Confirmed Last Taken Type Unobtainable 07/27/20 07/27/20 Unknown History Exam Exam Date and Time: August 22, 2020 0710 Height,Weight and Vital Signs: Height 6 ft 11 in Weight 99.79 kg Last Vital Signs Temp 97.1 F 08/22/20 06:32 Pulse 89 08/22/20 06:32 Resp 16 08/22/20 06:32 BP 146/87 H 08/22/20 06:32 Pulse Ox 99 08/22/20 06:32 Airway Mallampati Class: II TM Dist: >3cm Neck ROM: Full Heart: RRR Lungs: CtA Assessment and Plan Assessment Anesthesia Assessment: Anesthesia Plan Discussed and Chart Reviewed Final Anesthetic Review NPO: Yes (Sip water med) ASA Class: III Final Preanesthetic Review: No Changes in Pt Med Stat and Consent Obtained/Reviewed Patient Risk: Intermediate Procedure Risk: Intermediate Anesthetic Plan Anesthetic Plan: GA and Regional Block
--- NOTE | 2020-08-22 07:27 | HO.ECTPROC ---
ECT Procedure Note Diagnosis/Treatment Date of Service: 08/22/20 Diagnosis: Bipolar disorder Previous ECT Date: 08/20/20 Current Treatment Number: 11 Treatment: Series Interval Clinical Notes: The patient reported improvement of joleen, he looks less confused, still with involuntary movements due to TD on jaw. He couldn't get his VMAT script after discharge. ECT Settings Device: THYMATRON DGx Electrode Placement: Bifrontal Program/Pulse Width: 0.50 Energy Percent: 100 Seizure Duration By EEG (in seconds): 42 By Motor Observation (in seconds): 25 Medications Administration General Anesthetic: Etomidate (14) Muscle Relaxant: Succinylcholine (100) Ancillary Medications Analgesics: Torodol - Pre ECT Anti-emetics: Zofran - Pre ECT Miscillaneous Medications: Flumazenil and Other (Ativan) Airway Management Airway Management: Bag Mask Ventilation Treatment Recommendations No Changes Recommended: No change Pt Tolerated Procedure w/o Issue: Yes
[2020-08-22] MEDS: LORazepam 2 MG/ML VIAL IVPUSH (07:51)
== END 2020-08-22 09:53 | disposition home or self-care (01) ==
PROVIDERS: PCP Internal Medicine; Visit Provider Psychiatry & Neurology Psychiatry
PROC: (CPT 90870; principal; 2020-08-22 07:30)
DX: F31.9 Bipolar disorder, unspecified (principal); G24.01 Drug induced subacute dyskinesia; Z79.899 Other long term (current) drug therapy; Z88.8 Allergy status to other drugs, medicaments and biological substances
CPT/HCPCS: 90870; J0330; J1885; J2060; J2405

== ENCOUNTER 2020-08-27 06:01 | Day surgery (SDC) | payer OTHER, SELFPAY ==
[2020-08-27] VITALS (7 sets, daily range): BP systolic 121–154; BP diastolic 75–95; PULSE 73–99; RESP 12–20; TEMP 36.9–37.3; O2SAT 94–99; BMI 28.5
--- NOTE | 2020-08-27 07:02 | MHC.SHP ---
Pre-Procedural Eval Section A The patient is an INPATIENT: No Changes since office visit: No Cold of Flu in the past 2 weeks, No New Medical Problems, No Changes in Medication and No Patient answered all questions The History & Physical has been completed within 30 days and I have reviewed it.: Yes Section B Chief Complaint: depression Allergies: Allergies Allergy/AdvReac Type Severity Reaction Status Date / Time haloperidol [From Haldol] Allergy Unknown Verified 07/22/20 03:38 Plan Diagnosis/Plan: Unchanged I have reviewed the history and physical and performed a pertinent physical examination on my patient. No changes have occurred unless specified.
[2020-08-27] MEDS: Lactated Ringers 1,000 ML 20 ML IVCONT (07:10)
--- NOTE | 2020-08-27 07:24 | HO.ECTPROC ---
ECT Procedure Note Diagnosis/Treatment Date of Service: 08/27/20 Diagnosis: Bipolar disorder Previous ECT Date: 08/22/20 Current Treatment Number: 12 Treatment: Series Interval Clinical Notes: No evidence of joleen, in good spirits. He has not started Austedo yet for TD. Involuntary movements were noticeble. ECT Settings Device: THYMATRON DGx Electrode Placement: Bifrontal Program/Pulse Width: 0.50 Energy Percent: 100 Seizure Duration By EEG (in seconds): 36 By Motor Observation (in seconds): 21 Medications Administration General Anesthetic: Etomidate (14) Muscle Relaxant: Succinylcholine (100) Ancillary Medications Analgesics: Torodol - Pre ECT Anti-emetics: Zofran - Pre ECT Miscillaneous Medications: Propofol and Other (Ativan after procedure for post anesthesia agitation) Airway Management Airway Management: Bag Mask Ventilation Treatment Recommendations No Changes Recommended: No change
[2020-08-27] MEDS: LORazepam 2 MG/ML VIAL 1 MG IVPUSH (07:41)
--- NOTE | 2020-08-27 08:07 | HO.ANESPROP2 ---
[facility] Active Problems Active Problems: All Active Problems (Updated 08/25/20 @ 00:01 by Anthony Montana) Dyskinesia, tardive (Acute) Hyperlipidemia (Acute) Hypertension (Acute) Social History Social History Household Members: Spouse Household Members Other:: Housing: Unknown / Unable to assess Smoking Status: Never smoker Second Hand Smoke Exposure: No Advance Directives: No Advance Directives Information Provided: Yes service: No Sexual orientation: Straight/Heterosexual Meds Allergies Allergy/AdvReac Type Severity Reaction Status Date / Time haloperidol [From Haldol] Allergy Unknown Verified 07/22/20 03:38 Active Medications: Current Medications Generic Name Dose Route Start Last Admin Trade Name Freq PRN Reason Stop Dose Admin Lactated Ringer's 1,000 mls @ 20 mls/hr 08/27/20 07:45 08/27/20 07:10 Lr IVCONT 20 mls/hr .Q24H CONRAD Administration Exam Exam Date and Time: August 27, 2020 0807 Height,Weight and Vital Signs: Height 6 ft 1 in Weight 97.976 kg Last Vital Signs Temp 99.1 F 08/27/20 07:29 Pulse 99 08/27/20 07:58 Resp 18 08/27/20 07:58 BP 154/89 H 08/27/20 07:58 Pulse Ox 94 08/27/20 07:58 Airway Mallampati Class: II TM Dist: >3cm Neck ROM: Full Heart: RRR Lungs: CTA
== END 2020-08-27 08:47 | disposition home or self-care (01) ==
PROVIDERS: PCP Internal Medicine; Visit Provider Psychiatry & Neurology Psychiatry
PROC: (CPT 90870; principal; 2020-08-27 08:00)
DX: F31.9 Bipolar disorder, unspecified (principal); R25.9 Unspecified abnormal involuntary movements; Z88.8 Allergy status to other drugs, medicaments and biological substances
CPT/HCPCS: 90870; J0330; J1885; J2060; J2405

== ENCOUNTER 2020-09-03 06:01 | Day surgery (SDC) | payer OTHER, SELFPAY ==
[2020-09-03] VITALS (8 sets, daily range): BP systolic 121–159; BP diastolic 82–100; PULSE 76–96; RESP 16–20; TEMP 36.6; O2SAT 94–100; BMI 28.6
--- NOTE | 2020-09-03 07:08 | MHC.SHP ---
Pre-Procedural Eval Section A The patient is an INPATIENT: No Changes since office visit: No Cold of Flu in the past 2 weeks, No New Medical Problems, No Changes in Medication and No Patient answered all questions The History & Physical has been completed within 30 days and I have reviewed it.: Yes Section B Chief Complaint: major depressive disorder Allergies: Allergies Allergy/AdvReac Type Severity Reaction Status Date / Time haloperidol [From Haldol] Allergy Unknown Verified 07/22/20 03:38 Plan I have reviewed the history and physical and performed a pertinent physical examination on my patient. No changes have occurred unless specified.
--- NOTE | 2020-09-03 08:04 | HO.ECTPROC ---
ECT Procedure Note Diagnosis/Treatment Date of Service: 09/03/20 Diagnosis: Bipolar disorder Previous ECT Date: 08/27/20 Current Treatment Number: 1 Treatment: Maintenance Interval Clinical Notes: The patient reported euthymia. Still with TD symptoms, Austedo started last week. ECT Settings Device: THYMATRON DGx Electrode Placement: Bifrontal Program/Pulse Width: 0.50 Energy Percent: 100 Seizure Duration By EEG (in seconds): 45 By Motor Observation (in seconds): 41 Medications Administration General Anesthetic: Etomidate (12) Muscle Relaxant: Succinylcholine (100) Ancillary Medications Miscillaneous Medications: Other (Ativan 1 mg post ECT for agitation) Airway Management Airway Management: Bag Mask Ventilation Treatment Recommendations No Changes Recommended: No change Pt Tolerated Procedure w/o Issue: Yes
--- NOTE | 2020-09-03 08:19 | P.CONAN_ITS ---
[facility] Active Problems Active Problems: All Active Problems (Updated 08/25/20 @ 00:01 by Anthony Egan) Dyskinesia, tardive (Acute) Hyperlipidemia (Acute) Hypertension (Acute) Social History Social History Household Members: Spouse Household Members Other:: Housing: Unknown / Unable to assess Smoking Status: Never smoker Second Hand Smoke Exposure: No Advance Directives: No Advance Directives Information Provided: Yes service: No Sexual orientation: Straight/Heterosexual Meds Allergies Allergy/AdvReac Type Severity Reaction Status Date / Time haloperidol [From Haldol] Allergy Unknown Verified 07/22/20 03:38 Exam Exam Date and Time: September 03, 2020 0819 Height,Weight and Vital Signs: Height 6 ft 1 in Weight 98.6 kg Airway Mallampati Class: II TM Dist: >3cm Neck ROM: Full Heart: RRR Lungs: CTA
[2020-09-03] MEDS: LORazepam 2 MG/ML VIAL 1 MG IVPUSH (08:40)
== END 2020-09-03 10:27 | disposition home or self-care (01) ==
LOC: HO.SSS 06:02
PROVIDERS: PCP Internal Medicine; Visit Provider Psychiatry & Neurology Psychiatry
PROC: (CPT 90870; principal; 2020-09-03 07:00)
DX: F31.9 Bipolar disorder, unspecified (principal); G24.01 Drug induced subacute dyskinesia; I10 Essential (primary) hypertension; Z79.899 Other long term (current) drug therapy
CPT/HCPCS: 90870; J0330; J1885; J2060; J2405

== ENCOUNTER 2021-08-16 15:13 | Inpatient (IN) | payer OTHER, MEDICAID, SELFPAY ==
--- NOTE | 2021-08-16 | ECG_ITS ---
Test Reason : MEDICAL CLEARENCE Blood Pressure : / mmHG Vent. Rate : 087 BPM Atrial Rate : 087 BPM P-R Int : 150 ms QRS Dur : 086 ms QT Int : 370 ms P-R-T Axes : 055 037 033 degrees QTc Int : 445 ms Normal sinus rhythm Normal ECG When compared with ECG of 26-JUL-2020 18:57, No significant change was found Referred By: Oralia Larose Electronically Signed By:FEROZ DANIEL
--- NOTE | ~2021-08-16 | XR_ITS ---
EXAMINATION: XR CHEST CLINICAL INFORMATION: Fever. Suspected aspiration. COMPARISON: None TECHNIQUE: Frontal view of the chest was obtained. FINDINGS: Low lung volume is present. Bibasilar subtle airspace opacities are noted (left greater than right), may represent hypoventilatory, atelectatic changes versus infiltrate or combination thereof. No radiographic evidence of any dense airspace consolidation. Cardiac mediastinal silhouette is within normal limits, given the technique. No pleural effusion or thorax. XR/XR chest 1V IMPRESSION: Low lung volume and nonspecific subtle bibasilar airspace disease, may represent hypoventilatory, atelectatic changes versus subtle infiltrate or combination thereof. No evidence of any dense airspace pneumonia.
[2021-08-16 15:17] VITALS: BP 181/106; PULSE 110; RESP 19; TEMP 36.6; O2SAT 99; BMI 28.5
--- NOTE | 2021-08-16 16:13 | PC.NURSE ---
Patient has red rash on bilat lower extremities.
--- NOTE | 2021-08-16 16:14 | ED.PSYCH ---
HPI - Psych General Chief Complaint: Psychiatric Symptoms Stated Complaint: kidney pain/Psych eval Time Seen by Provider: 08/16/21 16:14 Source: patient Mode of arrival: ambulatory Limitations: altered mental status (appears to be manic. ) and other (poor historian ) History of Present Illness HPI Narrative: This is a 46-year-old male past medical history of hypertension, hyperlipidemia, bipolar disorder at times requiring ECT therapy presenting to the emergency department voluntarily brought in by family for psychiatric evaluation. Patient tells me that he is just here because he gained weight about 5 lb and he wants to make sure that his organs and kidneys are working okay. He tells me ?people's paranoia is starting to rub off on me . He tells me he has does here to make sure that he is okay however he feels fine. When I asked him if he uses any drugs he tells me yes I rubbed boil on my forehead all the time. Denies tobacco use. Tells me he drinks from time to time. He denies visual, auditory and tactile hallucinations. Denies SI and HI. Tells me he has no medical complaints but he tells me he is worried about his kidneys. Patient tells me he is eating and drinking well, and peeing per usual. Patient tells me he has not been taking his Abilify as prescribed as he is afraid it will affect his kidneys. Upon my history taking patient is speaking with very rapid speech and appears to be manic. Onset (ago): unknown Duration: constant History of same: Yes Relieving factors: none Exacerbating factors: none Associated psychiatric symptoms: none Associated symptoms: denies other symptoms Treatments prior to arrival: none Related Data Home Medications Medication Instructions Recorded Confirmed acetaminophen 500 mg tablet 1,000 mg PO QID PRN 08/16/21 08/16/21 (Tylenol Extra Strength) amlodipine 10 mg tablet 1 tab PO DAILY 08/16/21 08/16/21 aripiprazole 400 mg intramuscular 400 mg IM QMONTH 08/16/21 08/16/21 suspension,extended release (Abilify Maintena) bisoprolol 10 1 tab PO DAILY 08/16/21 08/16/21 mg-hydrochlorothiazide 6.25 mg tablet multivitamin 1 tab PO DAILY 08/16/21 08/16/21 vitamin B complex 1 tab PO DAILY 08/16/21 08/16/21 Previous Rx's Medication Instructions Recorded aripiprazole 30 mg tablet (Abilify) 30 mg PO DAILY 30 Days #30 tab 08/17/20 Allergies Allergy/AdvReac Type Severity Reaction Status Date / Time haloperidol [From Haldol] Allergy Unknown Verified 07/22/20 03:38 Review of Systems Review of Systems: Constitutional : No Weight loss, No Fever, No Chills, No Fatigue, No Malaise ENT/Mouth : No sore throat, No Rhinorrhea Eyes: No Eye Pain, No Swelling, No Redness Cardiovascular : No Chest Pain, No SOB, No Dyspnea on Exertion, No Orthopnea, No Edema, No Palpitations Respiratory : No Cough, No Sputum, No Wheezing Gastrointestinal : No Nausea, No Vomiting, No Diarrhea, No Constipation, No abdominal Pain, No Hematochezia, No Melena Genitourinary : No Dysuria, No Urinary Frequency, No Hematuria, Musculoskeletal : No joint pain, No Myalgias, No Joint Swelling Skin : No Skin Lesions, No rash Neuro : No Weakness, No Numbness, No Dizziness, No Headache Psych : No Anxiety/Panic, No Depression All other systems reviewed and are negative Yes all other systems are reviewed and are negative [facility] Past Medical History Attestation statement: The following information was validated with the patient. Source: old records reviewed Medical History HTN (hypertension) Kidney problem Social History Social History Household Members: Spouse Household Members Other:: Housing: Unknown / Unable to assess Do you presently have visiting nurse or other home services: No Second Hand Smoke Exposure: No Advance Directives: No Advance Directives Information Provided: No service: No Sexual orientation: Straight/Heterosexual Physical Exam Vital Signs: Vital Signs: Last Vital Signs Temp 98 F 08/16/21 15:17 Pulse 103 H 08/16/21 20:00 Resp 20 08/16/21 20:00 BP 145/94 H 08/16/21 21:30 Pulse Ox 99 08/16/21 20:00 BMI result Body Mass Index 28.5 Vital signs stable patient is noted to be hypertensive and tachycardic however he appears to be in an acute manic state, anxious, pacing around the room. Appearance: Alert.? Oriented X3.? No acute distress.? Patient is speaking rapidly, at times circumferential speech, appears to be in acute joleen Head: Normocephalic, atraumatic, no step-offs or deformities Eyes: Pupils equal, round and reactive to light.? ENT: Pharynx normal.? Neck: Normal inspection.? Neck supple.? CVS: Normal heart rate and rhythm.? Pulses normal.? Respiratory: No respiratory distress.? Breath sounds normal.? Abdomen: Soft and nontender.? Skin: Skin warm and dry.? Normal skin color.? Normal skin turgor.?+rash Extremities: No lower extremity edema.? No calf ttp. 5/5 strength to bilateral upper and lower extremities Back: No midline tenderness, no C-spine tenderness, full range of motion, no CVA tenderness bilaterally Neuro: Oriented X 3.? No motor deficit.? No sensory deficit. CN 2-12 intact Course Reevaluation(s) Reevaluation #1: CBC appears to be around patient's baseline. No acute electrolyte abnormalities requiring intervention. Patient's creatinine noted to be 1.49 however this appears to be his baseline. Transaminases slightly elevated. Urine negative for infection he is noted to have protein and blood in his urine. Urine toxicology negative. Ethanol negative. COVID negative. Patient noted to be hypertensive unlikely that he took his medications he will receive 5 mg of amlodipine Time: 18:07 Reevaluation #2: Patient's blood pressure improved after administering home dose of amlodipine. At this time patient will be placed in physician observation to allow more time to be evaluated by the behavioral health team and determine whether not patient requires inpatient admission. At time observation was started patient common cooperative no acute distress. He is voluntary Time: 21:51 MDM - Psych MDM Narrative Medical decision making narrative: 1621 46 yo m pmhx bipolar do presents to ED w/ acute joleen. PE significant for patient pacing around the room, with circumferential speech from time to time, speaking rapidly appears to be acutely manic. Regular rate fast rhythm likely sinus tachycardia. Lungs clear. Abdomen soft nontender nondistended. Neuro exam nonfocal. Patient alert and oriented x4. 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 Plan at this time is basic labs, COVID, urine, REES. Medical Records Attestation: I reviewed the patient's medical records. Lab Data Attestation: I reviewed the patient's lab results. Result diagrams: 08/16/21 16:51 08/16/21 16:51 Labs: Lab Results 08/16/21 08/16/21 08/16/21 Range/Units 16:05 16:42 16:42 WBC (4.8-10.8) X10*3/uL RBC (4.60-5.80) X10*6/uL Hgb (14.0-18.0) g/dl Hct (42.0-52.0) % MCV (80.0-98.0) fL MCH (27.0-33.0) pg MCHC (31.0-36.0) g/dl RDW (11.0-16.0) % Plt Count (160-400) X10*3/uL MPV (9.4-12.4) fL Immature Gran % (Auto) (0.0-0.4) % Neut % (Auto) (45-73) % Lymph % (Auto) (20-40) % [place] % (Auto) (2-11) % Eos % (Auto) (0-4) % Baso % (Auto) (0-2) % Lymph # (Auto) (1.2-4.9) X10*3/uL [place] # (Auto) (0.1-1.2) X10*3/uL Eos # (Auto) (0.0-0.4) X10*3/uL Baso # (Auto) (0.0-0.2) X10*3/uL Abs Immat Gran (auto) (0.00-0.03) X10*3/uL Absolute Neuts (auto) (2.0-8.3) x10*3/uL Absolute Nucleated RBC (0.0-0.012) X10*3/uL Nucleated RBC % (auto) (0.0-0.2) /100WBC Sodium (135-145) mmol/L Potassium (3.3-5.1) mmol/L Chloride (96-108) mmol/L Carbon Dioxide (22-29) mmol/L Anion Gap (12-20) BUN (9-16) mg/dL Creatinine (0.5-1.4) mg/dL Estim Creat Clear Calc Estimated GFR Random Glucose (60-115) mg/dL Calcium (8.4-10.2) mg/dL Total Bilirubin (0.0-1.0) mg/dL AST (5-37) U/L ALT (0-40) U/L Alkaline Phosphatase (39-117) U/L Total Protein (6.5-8.0) g/dL Albumin (3.5-5.0) g/dL Urine Color YELLOW Urine Appearance CLEAR Urine pH 6.0 (5.0-8.0) Ur Specific [place] 1.010 (1.005-1.025) Urine Protein 2+ H (NEG-TRACE) MG/DL Urine Glucose (UA) NEG (NEG) MG/DL Urine Ketones NEG (NEG) MG/DL Urine Blood 2+ H (NEG) Urine Nitrite NEG (NEG) Ur Leukocyte Esterase NEG (NEG) Urine RBC 5-9 H (0) /HPF Urine WBC 0 (0-4) /HPF Ur Squamous Epith Cells NONE /LPF Urine Bacteria NONE /LPF Urine Opiates Screen Not Detected (Not Detect) Urine Fentanyl Screen Not Detected (Not Detect) Ur Barbiturates Screen Not Detected (Not Detect) Ur Phencyclidine Scrn Not Detected (Not Detect) Ur Amphetamines Screen Not Detected (Not Detect) U Benzodiazepines Scrn Not Detected (Not Detect) Urine Cocaine Screen Not Detected (Not Detect) U Marijuana (THC) Screen Not Detected (Not Detect) Ethyl Alcohol mg/dL COVID-19 (URI) Negative (Negative) COVID-19 Clin Com See Note 08/16/21 08/16/21 08/16/21 Range/Units 16:51 16:51 16:51 WBC 7.8 (4.8-10.8) X10*3/uL RBC 4.83 (4.60-5.80) X10*6/uL Hgb 14.8 (14.0-18.0) g/dl Hct 42.1 (42.0-52.0) % MCV 87.2 (80.0-98.0) fL MCH 30.6 (27.0-33.0) pg MCHC 35.2 (31.0-36.0) g/dl RDW 12.7 (11.0-16.0) % Plt Count 226 (160-400) X10*3/uL MPV 9.3 L (9.4-12.4) fL Immature Gran % (Auto) 0.4 (0.0-0.4) % Neut % (Auto) 72.1 (45-73) % Lymph % (Auto) 15.1 L (20-40) % [place] % (Auto) 8.5 (2-11) % Eos % (Auto) 3.5 (0-4) % Baso % (Auto) 0.4 (0-2) % Lymph # (Auto) 1.2 (1.2-4.9) X10*3/uL [place] # (Auto) 0.7 (0.1-1.2) X10*3/uL Eos # (Auto) 0.3 (0.0-0.4) X10*3/uL Baso # (Auto) 0.0 (0.0-0.2) X10*3/uL Abs Immat Gran (auto) 0.03 (0.00-0.03) X10*3/uL Absolute Neuts (auto) 5.6 (2.0-8.3) x10*3/uL Absolute Nucleated RBC 0.000 (0.0-0.012) X10*3/uL Nucleated RBC % (auto) 0.0 (0.0-0.2) /100WBC Sodium 138 (135-145) mmol/L Potassium 3.9 (3.3-5.1) mmol/L Chloride 102 (96-108) mmol/L Carbon Dioxide 24 (22-29) mmol/L Anion Gap 16 (12-20) BUN 16 (9-16) mg/dL Creatinine 1.49 H (0.5-1.4) mg/dL Estim Creat Clear Calc 80.2 Estimated GFR 51 Random Glucose 117 H (60-115) mg/dL Calcium 10.1 D (8.4-10.2) mg/dL Total Bilirubin 0.7 (0.0-1.0) mg/dL AST 47 H D (5-37) U/L ALT 63 H (0-40) U/L Alkaline Phosphatase 56 (39-117) U/L Total Protein 8.2 H D (6.5-8.0) g/dL Albumin 4.9 D (3.5-5.0) g/dL Urine Color Urine Appearance Urine pH (5.0-8.0) Ur Specific [place] (1.005-1.025) Urine Protein (NEG-TRACE) MG/DL Urine Glucose (UA) (NEG) MG/DL Urine Ketones (NEG) MG/DL Urine Blood (NEG) Urine Nitrite (NEG) Ur Leukocyte Esterase (NEG) Urine RBC (0) /HPF Urine WBC (0-4) /HPF Ur Squamous Epith Cells /LPF Urine Bacteria /LPF Urine Opiates Screen (Not Detect) Urine Fentanyl Screen (Not Detect) Ur Barbiturates Screen (Not Detect) Ur Phencyclidine Scrn (Not Detect) Ur Amphetamines Screen (Not Detect) U Benzodiazepines Scrn (Not Detect) Urine Cocaine Screen (Not Detect) U Marijuana (THC) Screen (Not Detect) Ethyl Alcohol < 10 mg/dL COVID-19 (URI) (Negative) COVID-19 Clin Com Critical Care Time Critical Care Time Critical Care Time: No Discharge Plan Discharge Clinical Impression: Manic behavior, Rash Patient Disposition: Still a Patient Prescriptions: No Action aripiprazole [Abilify] 30 mg Tablet 30 mg PO DAILY 30 Days Qty: 30 0RF amlodipine 10 mg tablet 1 tab PO DAILY 0RF Abilify Maintena 400 mg suspension,extended rel recon 400 mg IM QMONTH 0RF multivitamin Tablet 1 tab PO DAILY 0RF bisoprolol-hydrochlorothiazide 10-6.25 mg tablet 1 tab PO DAILY 0RF acetaminophen [Tylenol Extra Strength] 500 mg Tablet 1,000 mg PO QID PRN (Reason: Mild Pain (Scale Score 1-4)) 0RF vitamin B complex Tablet 1 tab PO DAILY 0RF
[2021-08-16 16:35] LABS: COVID-19 Test Negative (Negative); IDNOW Serial# 55D5AD1C
[2021-08-16 16:56] LABS: MANUAL DIFF FLAG NO
[2021-08-16 16:59] LABS: Appearance Urine CLEAR; Color Urine YELLOW; Glucose Urine UA NEG (NEG); Leukocyte Esterase Urine NEG (NEG); Nitrite Urine NEG (NEG); UACC Culture Trigger NO; Urine Blood 2+ (NEG); Urine Ketones NEG (NEG); Urine Protein 2+ MG/DL (NEG-TRACE)
[2021-08-16 17:01] LABS: Basophils Percent Auto 0.4 % (0-2); Eosinophils Absolute Auto 0.3 X10*3/uL (0.0-0.4); Eosinophils Percent Auto 3.5 % (0-4); Hematocrit 42.1 % (42.0-52.0); Hemoglobin 14.8 g/dl (14.0-18.0); Imm Gran Abs Auto 0.03 X10*3/uL (0.00-0.03); Imm Gran Pct Auto 0.4 % (0.0-0.4); Lymphocytes Absolute Auto 1.2 X10*3/uL (1.2-4.9); Lymphocytes Percent Auto 15.1 % (20-40); Mean Corpuscular HGB Conc 35.2 g/dl (31.0-36.0); Mean Corpuscular Hemoglobin 30.6 pg (27.0-33.0); Mean Corpuscular Volume 87.2 fL (80.0-98.0); Mean Platelet Volume 9.3 fL (9.4-12.4); Monocytes Absolute Auto 0.7 X10*3/uL (0.1-1.2); Monocytes Percent Auto 8.5 % (2-11); Neutrophils Absolute Auto 5.6 x10*3/uL (2.0-8.3); Neutrophils Percent Auto 72.1 % (45-73); Platelet Count 226 X10*3/uL (160-400); Red Blood Count 4.83 X10*6/uL (4.60-5.80); Red Cell Distribution Width 12.7 % (11.0-16.0); White Blood Count 7.8 X10*3/uL (4.8-10.8)
[2021-08-16 17:06] LABS: WBC Urine 0 /HPF (0-4)
[2021-08-16 17:11] LABS: Ethanol < 10 mg/dL
[2021-08-16 17:12] LABS: Amphetamine Screen Urine Not Detected (Not Detect); Barbiturates, Urine Not Detected (Not Detect); Benzodiazepines Screen Urine Not Detected (Not Detect); Cannabinoid Screen Urine Not Detected (Not Detect); Cocaine Screen Urine Not Detected (Not Detect); Fentanyl, urine Not Detected (Not Detect); Opiate Screen Urine Not Detected (Not Detect); Phencyclidine Screen Urine Not Detected (Not Detect)
[2021-08-16 17:14] LABS: Alanine Aminotransferase 63 U/L (0-40); Albumin Level 4.9 g/dL (3.5-5.0); Alkaline Phosphatase 56 U/L (39-117); Anion Gap 16 (12-20); Aspartate Amino Transferase 47 U/L (5-37); Bilirubin Total 0.7 mg/dL (0.0-1.0); Blood Urea Nitrogen 16 mg/dL (9-16); Calcium 10.1 mg/dL (8.4-10.2); Carbon Dioxide 24 mmol/L (22-29); Chloride 102 mmol/L (96-108); Creatinine Clr Calc Pharmacy 80.2; Estimated Glomerular Filt Rate 51; Glucose Random 117 mg/dL (60-115); Potassium 3.9 mmol/L (3.3-5.1); Sodium 138 mmol/L (135-145); Total Protein 8.2 g/dL (6.5-8.0)
[2021-08-16 17:29] VITALS: BP 148/106; PULSE 107; RESP 20; O2SAT 98
--- NOTE | 2021-08-16 17:34 | PHA.MEDREC ---
Addendum entered by Olivia Hernandez [facility] 08/16/21 22:05: he thinks he takes too much abilify which is causing his current issues. When asked when he last had his abilify maintena, he said he thinks 07/03/21 and the answer is in his phone. Original Note: Pharmacy Consult ? Medication Reconciliation Pharmacy has completed the medication reconciliation. Pt takes prescription medications listed as well as a lot of [facility] products including their digestive enzyme, mirah oil, thieves chest rub, a heart medication that I wanted to try so I don't need to take the bisoprolol/hctz becaue it makes me pee , and many more that I wasn't able to completely ascertain what he said.
[2021-08-16] MEDS: Hydrocortisone 1 % Cream 28.35 GM TUBE 1 APPL TOPICAL (18:01)
[2021-08-16] MEDS: amLODIPine Besylate 5 MG TABLET PO (18:12)
[2021-08-16 20:00] VITALS: BP 163/104; PULSE 103; RESP 20; O2SAT 99
[2021-08-16 21:30] VITALS: BP 145/94
[2021-08-16] MEDS: Acetaminophen 325 MG TABLET 975 MG PO (22:56)
--- NOTE | 2021-08-16 23:03 | MHC.CARE ---
Pt is an inpatient bedsearch. Pt signed CV and will likely be admitted to M3.
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
[2021-08-17 07:14] LABS: Alanine Aminotransferase 65 U/L (0-40); Albumin Level 4.9 g/dL (3.5-5.0); Alkaline Phosphatase 56 U/L (39-117); Anion Gap 16 (12-20); Aspartate Amino Transferase 48 U/L (5-37); Bilirubin Total 1.2 mg/dL (0.0-1.0); Blood Urea Nitrogen 12 mg/dL (9-16); Calcium 10.2 mg/dL (8.4-10.2); Carbon Dioxide 24 mmol/L (22-29); Chloride 102 mmol/L (96-108); Cholesterol 226 mg/dL; Creatinine Clr Calc Pharmacy 81.3; Estimated Glomerular Filt Rate 52; Glucose Fasting 112 mg/dL (60-99); HDL Cholesterol 48 mg/dL; LDL Cholesterol Calculated 152 mg/dl; Potassium 3.9 mmol/L (3.3-5.1); Sodium 138 mmol/L (135-145); Total Protein 8.5 g/dL (6.5-8.0); Triglycerides 133 mg/dL
[2021-08-17 07:18] LABS: Estimated Average Glucose 97 mg/dL; Hemoglobin A1C 120.5342 umol/L
[2021-08-17 07:34] LABS: Thyroid Stimulating Hormone 1.87 uIU/mL (0.32-4.0)
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
--- NOTE | 2021-08-17 14:47 | P.PNPSI_ITS ---
Subjective Subjective Date of Service: 08/17/21 Reason For Visit: joleen Interim History: Presents as very pressured, intrusive, irritability and guarded. Very difficult to redirect. 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 Refused to speak with mortgage loan underwriter. Reports refusing medications and consent. Has not been sleeping. Does appear internally preoccupied. was refusing medications stating he would only take him in the presence of a doctor. When mortgage loan underwriter offered to be present when medications were being dispensed, he stated that time had passed. Fired mortgage loan underwriter multiple times, but was also seeking answers and then not able to engage in meaningful/2 way conversation. Medication Compliance: No Attending Groups: No Review of Systems Acute medical concerns: No Review of Systems Review of Systems Unremarkable Mental Status Exam Mental Status Exam Narrative: hospital clothing. On close observation. Intrusive. Pressured speech. Flight of ideas. Guarded. Difficult to redirect. Denied SI or HI. Grandiose delusions. Internally preoccupied. insight and judgment poor Diagnostics Vital Signs (24Hr): Vital Signs - 24 hr 08/16/21 15:17 08/16/21 17:29 08/16/21 20:00 Temperature 98 F Pulse Rate 110 H 107 H 103 H Respiratory Rate 19 20 20 Blood Pressure 181/106 H 148/106 H 163/104 H Pulse Oximetry 99 98 99 08/16/21 21:30 Temperature Pulse Rate Respiratory Rate Blood Pressure 145/94 H Pulse Oximetry BMI result Body Mass Index 28.5 Labs Results: 08/16/21 16:51 08/17/21 06:42 Labs: Laboratory Results - last 48 hr 08/16/21 08/16/21 08/16/21 16:05 16:42 16:42 WBC RBC Hgb Hct MCV MCH MCHC RDW Plt Count MPV Immature Gran % (Auto) Neut % (Auto) Lymph % (Auto) [place] % (Auto) Eos % (Auto) Baso % (Auto) Lymph # (Auto) [place] # (Auto) Eos # (Auto) Baso # (Auto) Abs Immat Gran (auto) Absolute Neuts (auto) Absolute Nucleated RBC Nucleated RBC % (auto) Sodium Potassium Chloride Carbon Dioxide Anion Gap BUN Creatinine Estim Creat Clear Calc Estimated GFR Random Glucose Fasting Glucose Estimat Average Glucose Hemoglobin A1c % Calcium Total Bilirubin AST ALT Alkaline Phosphatase Total Protein Albumin Triglycerides Cholesterol LDL Cholesterol, Calc HDL Cholesterol TSH Urine Color YELLOW Urine Appearance CLEAR Urine pH 6.0 Ur Specific [place] 1.010 Urine Protein 2+ H Urine Glucose (UA) NEG Urine Ketones NEG Urine Blood 2+ H Urine Nitrite NEG Ur Leukocyte Esterase NEG Urine RBC 5-9 H Urine WBC 0 Ur Squamous Epith Cells NONE Urine Bacteria NONE Urine Opiates Screen Not Detected Urine Fentanyl Screen Not Detected Ur Barbiturates Screen Not Detected Ur Phencyclidine Scrn Not Detected Ur Amphetamines Screen Not Detected U Benzodiazepines Scrn Not Detected Urine Cocaine Screen Not Detected U Marijuana (THC) Screen Not Detected Ethyl Alcohol COVID-19 (URI) Negative COVID-19 Clin Com See Note 08/16/21 08/16/21 08/16/21 16:51 16:51 16:51 WBC 7.8 RBC 4.83 Hgb 14.8 Hct 42.1 MCV 87.2 MCH 30.6 MCHC 35.2 RDW 12.7 Plt Count 226 MPV 9.3 L Immature Gran % (Auto) 0.4 Neut % (Auto) 72.1 Lymph % (Auto) 15.1 L [place] % (Auto) 8.5 Eos % (Auto) 3.5 Baso % (Auto) 0.4 Lymph # (Auto) 1.2 [place] # (Auto) 0.7 Eos # (Auto) 0.3 Baso # (Auto) 0.0 Abs Immat Gran (auto) 0.03 Absolute Neuts (auto) 5.6 Absolute Nucleated RBC 0.000 Nucleated RBC % (auto) 0.0 Sodium 138 Potassium 3.9 Chloride 102 Carbon Dioxide 24 Anion Gap 16 BUN 16 Creatinine 1.49 H Estim Creat Clear Calc 80.2 Estimated GFR 51 Random Glucose 117 H Fasting Glucose Estimat Average Glucose Hemoglobin A1c % Calcium 10.1 D Total Bilirubin 0.7 AST 47 H D ALT 63 H Alkaline Phosphatase 56 Total Protein 8.2 H D Albumin 4.9 D Triglycerides Cholesterol LDL Cholesterol, Calc HDL Cholesterol TSH Urine Color Urine Appearance Urine pH Ur Specific [place] Urine Protein Urine Glucose (UA) Urine Ketones Urine Blood Urine Nitrite Ur Leukocyte Esterase Urine RBC Urine WBC Ur Squamous Epith Cells Urine Bacteria Urine Opiates Screen Urine Fentanyl Screen Ur Barbiturates Screen Ur Phencyclidine Scrn Ur Amphetamines Screen U Benzodiazepines Scrn Urine Cocaine Screen U Marijuana (THC) Screen Ethyl Alcohol < 10 COVID-19 (URI) COVID-19 Clin Com 08/17/21 08/17/21 06:42 06:42 WBC RBC Hgb Hct MCV MCH MCHC RDW Plt Count MPV Immature Gran % (Auto) Neut % (Auto) Lymph % (Auto) [place] % (Auto) Eos % (Auto) Baso % (Auto) Lymph # (Auto) [place] # (Auto) Eos # (Auto) Baso # (Auto) Abs Immat Gran (auto) Absolute Neuts (auto) Absolute Nucleated RBC Nucleated RBC % (auto) Sodium 138 Potassium 3.9 Chloride 102 Carbon Dioxide 24 Anion Gap 16 BUN 12 Creatinine 1.47 H Estim Creat Clear Calc 81.3 Estimated GFR 52 Random Glucose Fasting Glucose 112 H Estimat Average Glucose 97 Hemoglobin A1c % 5.0 Calcium 10.2 Total Bilirubin 1.2 H AST 48 H ALT 65 H Alkaline Phosphatase 56 Total Protein 8.5 H Albumin 4.9 Triglycerides 133 Cholesterol 226 D LDL Cholesterol, Calc 152 HDL Cholesterol 48 D TSH 1.87 Urine Color Urine Appearance Urine pH Ur Specific [place] Urine Protein Urine Glucose (UA) Urine Ketones Urine Blood Urine Nitrite Ur Leukocyte Esterase Urine RBC Urine WBC Ur Squamous Epith Cells Urine Bacteria Urine Opiates Screen Urine Fentanyl Screen Ur Barbiturates Screen Ur Phencyclidine Scrn Ur Amphetamines Screen U Benzodiazepines Scrn Urine Cocaine Screen U Marijuana (THC) Screen Ethyl Alcohol COVID-19 (URI) COVID-19 Clin Com Medications Medications Current Medications Acetaminophen (Acetaminophen 325 Mg Tablet) 975 mg PO QID PRN PRN Reason: Mild Pain (Scale Score 1-4) Last Admin: 08/16/21 22:56 Dose: 975 mg Documented by: Al Hydroxide/Mg Hydroxide (Magnesium Hydrox/Alum Hydrox 30 Ml Oral.Susp) 30 ml PO Q6H PRN PRN Reason: Heartburn/Nausea Amlodipine Besylate (Amlodipine Besylate 10 Mg Tablet) 10 mg PO DAILY [facility]; Protocol Last Admin: 08/17/21 11:27 Dose: Not Given Documented by: Aripiprazole (Aripiprazole 30 Mg Tablet) 30 mg PO DAILY [facility] Last Admin: 08/17/21 11:27 Dose: Not Given Documented by: Aripiprazole (Aripiprazole Er 400 Mg Suser.Syr) 400 mg IM Q28D [facility] Bisoprolol Fumarate (Bisoprolol Fumarate 5 Mg Tablet) 10 mg PO DAILY [facility] Last Admin: 08/17/21 11:27 Dose: Not Given Documented by: Hydrochlorothiazide (Hydrochlorothiazide 12.5 Mg Tablet) 6.25 mg PO DAILY [facility] Last Admin: 08/17/21 11:28 Dose: Not Given Documented by: Hydroxyzine HCl (Hydroxyzine Hcl 25 Mg Tablet) 25 mg PO Q6H PRN PRN Reason: Anxiety Lorazepam (Lorazepam 1 Mg Tablet) 1 mg PO Q6H PRN PRN Reason: anxiety/restlessness Magnesium Hydroxide (Milk Of Magnesia 30 Ml Oral.Susp) 30 ml PO DAILY PRN PRN Reason: Constipation Multivitamins/Vitamin C (Multivitamin Tablet) 1 tab PO DAILY [facility] Last Admin: 08/17/21 11:28 Dose: Not Given Documented by: Pharmacy Consult (Consult Rx Perform Med Rec) 1 each MISCELLANE ONCE PRN PRN Reason: Consult order Trazodone HCl (Trazodone Hcl 50 Mg Tablet) 50 mg PO BEDTIME PRN PRN Reason: Insomnia Allergies Allergies Allergy/AdvReac Type Severity Reaction Status Date / Time haloperidol [From Haldol] Allergy Unknown Verified 07/22/20 03:38 Assessment & Plan Assessment & Plan (1) Manic behavior: Status: Acute Code(s): F30.10 - Manic episode without psychotic symptoms, unspecified Assessment and Plan: 45 year-old man with bipolar 1 admitted to on 07/18/20 with disorganized joleen, undergoing ECT, who has developed a purulent cellulits overlying the left knee.? Currently, his mental status has improved but still symptomatic.? Now, he is less agitated and more organized, remark improvement since ECT was started. # bipolar disorder - medications and ECT as per psychiatry team. - we stopped Zyprexa today due to EPS symtoms and probably TD symptoms.? We discussed the possiblity of Abilify Maintena or Aristada (accordingly to his insurance). - family meeting to get collateral if he is at baselines # TD - Started on Tetrabenazine with no side effects or still results. - Add a low dose of Klonopin 0.5 mg po bid. # purulent cellulitis - oral doxycycline for 1 week, stable, no fever, resolved at this time. # renal insufficiency -? baseline creatinine is high as per PCP practice between 1.4 to 1.7 in the last years.? Cr improved, today came on 1.5. Renal studies didn't show any lithiasis.? Problem resolved. # tinea corporis - continue clotrimazole cream CT current treatment plan without change 08/17/2021: Continue to encourage medication adherence as per primary team recommendation I spent minutes with the patient and/or on the patient floor today, greater than?50% of which was spent counseling/coordinating care. Reason for contiued inpatient stay Substantial Risk for: inability to function
[2021-08-17] MEDS: Bisoprolol Fumarate 5 MG TABLET 10 MG PO (16:18)
[2021-08-17] MEDS: amLODIPine Besylate 10 MG TABLET PO (16:18)
[2021-08-17] MEDS: Multivitamin TABLET 1 TAB PO (16:19)
[2021-08-17] MEDS: hydroCHLOROthiazide 12.5 MG TABLET 6.25 MG PO (16:19)
[2021-08-17] MEDS: ARIPiprazole 30 MG TABLET PO (16:19)
[2021-08-17] MEDS: hydrOXYzine HCL 25 MG TABLET PO (16:27)
[2021-08-17 20:40] VITALS: RESP 18
--- NOTE | 2021-08-17 21:59 | PC.NURSE ---
Pt's brother, Brian Fernandez, called to check in on pt and inquire if he has been taking medications. Pt did sign a KUSUM for brother. Brian is requesting to speak with pt's SW on Thursday. . Pt aware TW spoke with his brother.
[2021-08-18 06:00] VITALS: BP 140/84; PULSE 89; RESP 18; TEMP 36.9; O2SAT 98
--- NOTE | 2021-08-18 12:29 | P.PNPSI_ITS ---
Subjective Subjective Date of Service: 08/18/21 Reason For Visit: joleen Interim History: Presents as very pressured, intrusive, irritability and guarded. Very difficult to redirect. 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 Refusing medications. Has not been sleeping. Does appear internally preoccupied.Unable to engage in meaningful/2 way conversation. Medication Compliance: No Attending Groups: No Review of Systems Acute medical concerns: No Review of Systems Review of Systems Yes Unobtainable due to mental status Mental Status Exam Mental Status Exam Narrative: hospital clothing. On close observation. Intrusive. Pressured speech. Flight of ideas. Guarded. Difficult to redirect. Denied SI or HI. Grandiose delusions. Internally preoccupied. insight and judgment poor Diagnostics Vital Signs (24Hr): Vital Signs - 24 hr 08/17/21 20:40 08/18/21 06:00 Temperature 98.4 F Pulse Rate 89 Respiratory Rate 18 18 Blood Pressure 140/84 H Pulse Oximetry 98 BMI result Body Mass Index 28.5 Labs Results: 08/16/21 16:51 08/17/21 06:42 Labs: Laboratory Results - last 48 hr 08/16/21 08/16/21 08/16/21 16:05 16:42 16:42 WBC RBC Hgb Hct MCV MCH MCHC RDW Plt Count MPV Immature Gran % (Auto) Neut % (Auto) Lymph % (Auto) [place] % (Auto) Eos % (Auto) Baso % (Auto) Lymph # (Auto) [place] # (Auto) Eos # (Auto) Baso # (Auto) Abs Immat Gran (auto) Absolute Neuts (auto) Absolute Nucleated RBC Nucleated RBC % (auto) Sodium Potassium Chloride Carbon Dioxide Anion Gap BUN Creatinine Estim Creat Clear Calc Estimated GFR Random Glucose Fasting Glucose Estimat Average Glucose Hemoglobin A1c % Calcium Total Bilirubin AST ALT Alkaline Phosphatase Total Protein Albumin Triglycerides Cholesterol LDL Cholesterol, Calc HDL Cholesterol TSH Urine Color YELLOW Urine Appearance CLEAR Urine pH 6.0 Ur Specific [place] 1.010 Urine Protein 2+ H Urine Glucose (UA) NEG Urine Ketones NEG Urine Blood 2+ H Urine Nitrite NEG Ur Leukocyte Esterase NEG Urine RBC 5-9 H Urine WBC 0 Ur Squamous Epith Cells NONE Urine Bacteria NONE Urine Opiates Screen Not Detected Urine Fentanyl Screen Not Detected Ur Barbiturates Screen Not Detected Ur Phencyclidine Scrn Not Detected Ur Amphetamines Screen Not Detected U Benzodiazepines Scrn Not Detected Urine Cocaine Screen Not Detected U Marijuana (THC) Screen Not Detected Ethyl Alcohol COVID-19 (URI) Negative COVID-19 [place] See Note 08/16/21 08/16/21 08/16/21 16:51 16:51 16:51 WBC 7.8 RBC 4.83 Hgb 14.8 Hct 42.1 MCV 87.2 MCH 30.6 MCHC 35.2 RDW 12.7 Plt Count 226 MPV 9.3 L Immature Gran % (Auto) 0.4 Neut % (Auto) 72.1 Lymph % (Auto) 15.1 L [place] % (Auto) 8.5 Eos % (Auto) 3.5 Baso % (Auto) 0.4 Lymph # (Auto) 1.2 [place] # (Auto) 0.7 Eos # (Auto) 0.3 Baso # (Auto) 0.0 Abs Immat Gran (auto) 0.03 Absolute Neuts (auto) 5.6 Absolute Nucleated RBC 0.000 Nucleated RBC % (auto) 0.0 Sodium 138 Potassium 3.9 Chloride 102 Carbon Dioxide 24 Anion Gap 16 BUN 16 Creatinine 1.49 H Estim Creat Clear Calc 80.2 Estimated GFR 51 Random Glucose 117 H Fasting Glucose Estimat Average Glucose Hemoglobin A1c % Calcium 10.1 D Total Bilirubin 0.7 AST 47 H D ALT 63 H Alkaline Phosphatase 56 Total Protein 8.2 H D Albumin 4.9 D Triglycerides Cholesterol LDL Cholesterol, Calc HDL Cholesterol TSH Urine Color Urine Appearance Urine pH Ur Specific [place] Urine Protein Urine Glucose (UA) Urine Ketones Urine Blood Urine Nitrite Ur Leukocyte Esterase Urine RBC Urine WBC Ur Squamous Epith Cells Urine Bacteria Urine Opiates Screen Urine Fentanyl Screen Ur Barbiturates Screen Ur Phencyclidine Scrn Ur Amphetamines Screen U Benzodiazepines Scrn Urine Cocaine Screen U Marijuana (THC) Screen Ethyl Alcohol < 10 COVID-19 (URI) COVID-19 [place] 08/17/21 08/17/21 06:42 06:42 WBC RBC Hgb Hct MCV MCH MCHC RDW Plt Count MPV Immature Gran % (Auto) Neut % (Auto) Lymph % (Auto) [place] % (Auto) Eos % (Auto) Baso % (Auto) Lymph # (Auto) [place] # (Auto) Eos # (Auto) Baso # (Auto) Abs Immat Gran (auto) Absolute Neuts (auto) Absolute Nucleated RBC Nucleated RBC % (auto) Sodium 138 Potassium 3.9 Chloride 102 Carbon Dioxide 24 Anion Gap 16 BUN 12 Creatinine 1.47 H Estim Creat Clear Calc 81.3 Estimated GFR 52 Random Glucose Fasting Glucose 112 H Estimat Average Glucose 97 Hemoglobin A1c % 5.0 Calcium 10.2 Total Bilirubin 1.2 H AST 48 H ALT 65 H Alkaline Phosphatase 56 Total Protein 8.5 H Albumin 4.9 Triglycerides 133 Cholesterol 226 D LDL Cholesterol, Calc 152 HDL Cholesterol 48 D TSH 1.87 Urine Color Urine Appearance Urine pH Ur Specific [place] Urine Protein Urine Glucose (UA) Urine Ketones Urine Blood Urine Nitrite Ur Leukocyte Esterase Urine RBC Urine WBC Ur Squamous Epith Cells Urine Bacteria Urine Opiates Screen Urine Fentanyl Screen Ur Barbiturates Screen Ur Phencyclidine Scrn Ur Amphetamines Screen U Benzodiazepines Scrn Urine Cocaine Screen U Marijuana (THC) Screen Ethyl Alcohol COVID-19 (URI) COVID-19 Clin Com Medications Medications Current Medications Acetaminophen (Acetaminophen 325 Mg Tablet) 975 mg PO QID PRN PRN Reason: Mild Pain (Scale Score 1-4) Last Admin: 08/16/21 22:56 Dose: 975 mg Documented by: Al Hydroxide/Mg Hydroxide (Magnesium Hydrox/Alum Hydrox 30 Ml Oral.Susp) 30 ml PO Q6H PRN PRN Reason: Heartburn/Nausea Amlodipine Besylate (Amlodipine Besylate 10 Mg Tablet) 10 mg PO DAILY [facility]; Protocol Last Admin: 08/17/21 16:18 Dose: 10 mg Documented by: Aripiprazole (Aripiprazole 30 Mg Tablet) 30 mg PO DAILY [facility] Last Admin: 08/17/21 16:19 Dose: 30 mg Documented by: Aripiprazole (Aripiprazole Er 400 Mg Suser.Syr) 400 mg IM Q28D [facility] Bisoprolol Fumarate (Bisoprolol Fumarate 5 Mg Tablet) 10 mg PO DAILY [facility] Last Admin: 08/17/21 16:18 Dose: 5 mg Documented by: Hydrochlorothiazide (Hydrochlorothiazide 12.5 Mg Tablet) 6.25 mg PO DAILY [facility] Last Admin: 08/17/21 16:19 Dose: 6.25 mg Documented by: Hydroxyzine HCl (Hydroxyzine Hcl 25 Mg Tablet) 25 mg PO Q6H PRN PRN Reason: Anxiety Last Admin: 08/17/21 16:27 Dose: 25 mg Documented by: Lorazepam (Lorazepam 1 Mg Tablet) 1 mg PO Q6H PRN PRN Reason: anxiety/restlessness Magnesium Hydroxide (Milk Of Magnesia 30 Ml Oral.Susp) 30 ml PO DAILY PRN PRN Reason: Constipation Multivitamins/Vitamin C (Multivitamin Tablet) 1 tab PO DAILY [facility] Last Admin: 08/17/21 16:19 Dose: 1 tab Documented by: Pharmacy Consult (Consult Rx Perform Med Rec) 1 each MISCELLANE ONCE PRN PRN Reason: Consult order Trazodone HCl (Trazodone Hcl 50 Mg Tablet) 50 mg PO BEDTIME PRN PRN Reason: Insomnia Allergies Allergies Allergy/AdvReac Type Severity Reaction Status Date / Time haloperidol [From Haldol] Allergy Unknown Verified 07/22/20 03:38 Assessment & Plan Assessment & Plan (1) Manic behavior: Status: Acute Code(s): F30.10 - Manic episode without psychotic symptoms, unspecified Assessment and Plan: 45 year-old man with bipolar 1 admitted to on 07/18/20 with disorganized joleen, undergoing ECT, who has developed a purulent cellulits overlying the left knee.? Currently, his mental status has improved but still symptomatic.? Now, he is less agitated and more organized, remark improvement since ECT was started. # bipolar disorder - medications and ECT as per psychiatry team. - we stopped Zyprexa today due to EPS symtoms and probably TD symptoms.? We discussed the possiblity of Abilify Maintena or Aristada (accordingly to his insurance). - family meeting to get collateral if he is at baselines # TD - Started on Tetrabenazine with no side effects or still results. - Add a low dose of Klonopin 0.5 mg po bid. # purulent cellulitis - oral doxycycline for 1 week, stable, no fever, resolved at this time. # renal insufficiency -? baseline creatinine is high as per PCP practice between 1.4 to 1.7 in the last years.? Cr improved, today came on 1.5. Renal studies didn't show any lithiasis.? Problem resolved. # tinea corporis - continue clotrimazole cream CT current treatment plan without change 08/18/2021: Continue to encourage medication adherence as per primary team recommendation I spent minutes with the patient and/or on the patient floor today, greater than?50% of which was spent counseling/coordinating care. Reason for contiued inpatient stay Substantial Risk for: inability to function
[2021-08-18] MEDS: Multivitamin TABLET 1 TAB PO (12:32)
[2021-08-18] MEDS: hydroCHLOROthiazide 12.5 MG TABLET 6.25 MG PO (12:32)
[2021-08-18] MEDS: ARIPiprazole 30 MG TABLET PO (12:33)
[2021-08-18] MEDS: Bisoprolol Fumarate 5 MG TABLET 10 MG PO (12:33)
[2021-08-18] MEDS: amLODIPine Besylate 10 MG TABLET PO (12:51)
[2021-08-18 20:21] VITALS: BP 130/73; PULSE 99; RESP 18; TEMP 36.7; O2SAT 98
[2021-08-18] MEDS: LORazepam 1 MG TABLET PO (23:14)
[2021-08-18] MEDS: traZODone HCL 50 MG TABLET PO (23:14)
--- NOTE | 2021-08-19 00:44 | PC.NURSE ---
At 0040, Duarte began to rip papers off the wall of the unit. Patient had to be redirected several times to stop. All items on the unit were collected and locked into the cabinets to prevent patient from throwing items.
[2021-08-19 08:13] VITALS: BP 142/86; PULSE 98; RESP 17; TEMP 36.9; O2SAT 96
[2021-08-19] MEDS: hydroCHLOROthiazide 12.5 MG TABLET 6.25 MG PO (08:17)
[2021-08-19] MEDS: Multivitamin TABLET 1 TAB PO (08:17)
[2021-08-19] MEDS: amLODIPine Besylate 10 MG TABLET PO (08:17)
[2021-08-19] MEDS: Bisoprolol Fumarate 5 MG TABLET 10 MG PO (08:17)
[2021-08-19] MEDS: ARIPiprazole 30 MG TABLET PO (08:17)
[2021-08-19 09:37] LABS: Folate > 20.0 ng/mL (> or = 4.0); Vitamin B12 558 pg/mL (200-900)
[2021-08-19] MEDS: LORazepam 1 MG TABLET PO (10:01)
--- NOTE | 2021-08-19 12:13 | HO.PSYCHPN ---
Subjective Subjective Date of Service: 08/19/21 Reason For Visit: joleen Subjective Notes: Conditional Voluntary Interim History: Pt continues to be intrusive, hyperverbal, with themes of grandiosity, difficult to redirect at times but no aggression towards others although very disruptive with peers. Pt with some insight that he needs ECT and has been the most effective treatment. Medication Compliance: Intermittent Side effects from medications: No Review of Systems Review of Systems Unremarkable Yes all other systems are reviewed and are negative and Unobtainable due to mental status Mental Status Exam Mental Status Exam Narrative: Appearance: casually groomed, fair hygiene in NAD Behavior:intrusive, poor boundaries, overly familiar psychomotor:agitated, restless Speech:hyperverbal, pressured, loud at times, spontaneous Thought process:flight of ideas Thought content:elements of grandiosity Mood: fine Affect: expansive, labile SI:none HI:none VH/AH:none Delusions:grandiose delusions Insight/judgment:some insight that needs ECT for tx Memory/cog: alert, attention/executive function impaired secondary to psychiatric symptoms. Diagnostics Vital Signs (24Hr): Vital Signs - 24 hr 08/19/21 18:00 Respiratory Rate 16 BMI result Body Mass Index 28.5 Labs Results: 08/16/21 16:51 08/17/21 06:42 Labs: Laboratory Results - last 48 hr 08/17/21 06:42 Vitamin B12 558 Folate > 20.0 Medications Medications Current Medications Acetaminophen (Acetaminophen 325 Mg Tablet) 975 mg PO QID PRN PRN Reason: Mild Pain (Scale Score 1-4) Last Admin: 08/16/21 22:56 Dose: 975 mg Documented by: Al Hydroxide/Mg Hydroxide (Magnesium Hydrox/Alum Hydrox 30 Ml Oral.Susp) 30 ml PO Q6H PRN PRN Reason: Heartburn/Nausea Amlodipine Besylate (Amlodipine Besylate 10 Mg Tablet) 10 mg PO DAILY [facility]; Protocol Last Admin: 08/19/21 08:17 Dose: 10 mg Documented by: Aripiprazole (Aripiprazole 30 Mg Tablet) 30 mg PO DAILY [facility] Last Admin: 08/19/21 08:17 Dose: 30 mg Documented by: Aripiprazole (Aripiprazole Er 400 Mg Suser.Syr) 400 mg IM Q28D [facility] Bisoprolol Fumarate (Bisoprolol Fumarate 5 Mg Tablet) 10 mg PO DAILY [facility] Last Admin: 08/19/21 08:17 Dose: 10 mg Documented by: Hydrochlorothiazide (Hydrochlorothiazide 12.5 Mg Tablet) 6.25 mg PO DAILY [facility] Last Admin: 08/19/21 08:17 Dose: 6.25 mg Documented by: Hydroxyzine HCl (Hydroxyzine Hcl 25 Mg Tablet) 25 mg PO Q6H PRN PRN Reason: Anxiety Last Admin: 08/17/21 16:27 Dose: 25 mg Documented by: Lorazepam (Lorazepam 1 Mg Tablet) 2 mg PO Q4H PRN PRN Reason: anxiety/restlessness Magnesium Hydroxide (Milk Of Magnesia 30 Ml Oral.Susp) 30 ml PO DAILY PRN PRN Reason: Constipation Multivitamins/Vitamin C (Multivitamin Tablet) 1 tab PO DAILY [facility] Last Admin: 08/19/21 08:17 Dose: 1 tab Documented by: Pharmacy Consult (Consult Rx Perform Med Rec) 1 each MISCELLANE ONCE PRN PRN Reason: Consult order Trazodone HCl (Trazodone Hcl 50 Mg Tablet) 50 mg PO BEDTIME PRN PRN Reason: Insomnia Last Admin: 08/18/21 23:14 Dose: 50 mg Documented by: Allergies Allergies Allergy/AdvReac Type Severity Reaction Status Date / Time haloperidol [From Haldol] Allergy Unknown Verified 07/22/20 03:38 Assessment & Plan Assessment & Plan (1) Bipolar affective disorder, mixed, severe, with psychotic behavior: Status: Acute Code(s): F31.64 - Bipolar disorder, current episode mixed, severe, with psychotic features Assessment and Plan: Presents as manic with psychosis in context of med non adherence. Will restart abilify 30mg +/- abilify maintenna when able to fully engage in discussion around same. Engage family as patient permits I spent minutes with the patient and/or on the patient floor today, greater than?50% of which was spent counseling/coordinating care. Reason for contiued inpatient stay Substantial Risk for: inability to function
--- NOTE | 2021-08-19 13:26 | PC.NURSE ---
PT states that he smokes THC removed canabis oils and is requesting nicotine gum as replacement. Provider notified.
[2021-08-19 18:00] VITALS: RESP 16
--- NOTE | 2021-08-20 01:13 | PC.NURSE ---
At 0025, pt tore a face mask and put a fragment in his mouth. Pt appeared to ignore redirection and refused to remove the fragment from his mouth for approximately thirty minutes. After pt did remove the fragment, pt threw a roll of toilet paper on the ground in the bathroom. Pt then began to tear off pieces of the toilet paper and put pieces in his mouth. Pt blocked the exit from the bathroom when t/w attempted to redirect pt and clean the debris. Pt began to touch t/w's face, glasses, and clothes. Pt accepted redirection with regard to touch but continued to block the exit. Pt grabbed t/w's badge and pulled it close to his face as though to read it. Pt broke t/w's badge from the lanyard. T/w pressed the emergency call button in the restroom, and pt then stepped away from the exit.
--- NOTE | 2021-08-20 07:32 | HO.ECTCONS ---
History of Present Illness General Data Date of Service: 08/20/2021 Reason for consult: ect evaluation patient reportedly requesting ECT Requesting provider: Emi Duque History of Present Illness This is the 2nd [facility] psychiatric admission for this 46-year-old male with a history of bipolar disorder with psychotic features that has been somewhat treatment resistant. He was treated here from July 18 to July 232020 had a very ciera treatment course did not respond to medication was noted to have tardive dyskinesia and had 12 inpatient ECT treatments. This time the patient was brought to the emergency room secondary to manic symptoms he was pressured internally preoccupied agitated and apparently has been on Abilify Maintena with reported last injection and late June of 400 mg. Of note is the patient is in [employer]. who normally works at the [employer]. He has a long history of bipolar disorder. He was noted to have some degree of renal insufficiency. He was unable to be stabilized on his previous admission with multiple medication trials and had often been psychotic and aggressive and eventually responded to ECT. He was discharged on trazodone 150 mg bedtime p.r.n. clonazepam 0.5 b.i.d. Abilify 30 mg daily he was prescribed tetrabenazine 12.5 mg daily at time of discharge. He had been tried on olanzapine Tegretol lithium Thorazine Ativan. He was eventually committed and had ECT under court-ordered treatment plan.Pt apparently rapidly decompensated was brought to the er by family. He had put off having abilify maintenta inj for about 2weeks last inj 400 mg july 05. He has been feeling overwhelmed with work stress no si hi reorted can be aggressive when manic. Past Psychiatric History/Medication Trials: long hx bipolar dx since adol was stable x 15 yrs till 2010 [facility] Medical History HTN (hypertension) Kidney problem Family History: biol mother ? 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 Pt has supportive family Trauma History: Unknown. Meds/Allergies Meds Home Medications Acetaminophen (Acetaminophen 325 Mg Tablet) 975 mg PO QID PRN PRN Reason: Mild Pain (Scale Score 1-4) Last Admin: 08/21/21 06:35 Dose: 975 mg Documented by: Al Hydroxide/Mg Hydroxide (Magnesium Hydrox/Alum Hydrox 30 Ml Oral.Susp) 30 ml PO Q6H PRN PRN Reason: Heartburn/Nausea Amlodipine Besylate (Amlodipine Besylate 10 Mg Tablet) 10 mg PO DAILY [facility]; Protocol Last Admin: 08/21/21 07:53 Dose: 10 mg Documented by: Aripiprazole (Aripiprazole 30 Mg Tablet) 30 mg PO DAILY [facility] Last Admin: 08/21/21 07:52 Dose: 30 mg Documented by: Aripiprazole (Aripiprazole Er 400 Mg Suser.Syr) 400 mg IM Q28D [facility] Last Admin: 08/20/21 14:09 Dose: 400 mg Documented by: Bisoprolol Fumarate (Bisoprolol Fumarate 5 Mg Tablet) 10 mg PO DAILY [facility] Last Admin: 08/21/21 07:52 Dose: 10 mg Documented by: Clonazepam (Clonazepam 1 Mg Tablet) 1 mg PO BEDTIME PRN PRN Reason: Insomnia Clonazepam (Clonazepam 1 Mg Tablet) 1 mg PO BEDTIME [facility] Divalproex Sodium (Divalproex Sodium Er 500 Mg Tab.Er.24h) 1,500 mg PO BEDTIME [facility] Last Admin: 08/20/21 21:38 Dose: 1,500 mg Documented by: Hydrochlorothiazide (Hydrochlorothiazide 12.5 Mg Tablet) 6.25 mg PO DAILY [facility] Last Admin: 08/21/21 07:52 Dose: 6.25 mg Documented by: Hydroxyzine HCl (Hydroxyzine Hcl 25 Mg Tablet) 25 mg PO Q6H PRN PRN Reason: Anxiety Last Admin: 08/21/21 07:52 Dose: 25 mg Documented by: Lorazepam (Lorazepam 1 Mg Tablet) 2 mg PO Q4H PRN PRN Reason: anxiety/restlessness Last Admin: 08/20/21 23:53 Dose: 2 mg Documented by: Magnesium Hydroxide (Milk Of Magnesia 30 Ml Oral.Susp) 30 ml PO DAILY PRN PRN Reason: Constipation Multivitamins/Vitamin C (Multivitamin Tablet) 1 tab PO DAILY [facility] Last Admin: 08/21/21 07:52 Dose: 1 tab Documented by: Pharmacy Consult (Consult Rx Perform Med Rec) 1 each MISCELLANE ONCE PRN PRN Reason: Consult order Trazodone HCl (Trazodone Hcl 50 Mg Tablet) 50 mg PO BEDTIME PRN PRN Reason: Insomnia Last Admin: 08/20/21 23:53 Dose: 50 mg Documented by: Allergies Allergies Allergy/AdvReac Type Severity Reaction Status Date / Time haloperidol [From Haldol] Allergy Unknown Verified 07/22/20 03:38 Mental Status Exam Mental Status Exam Patient Appearance: Fatigued, Disheveled, Unkempt and Bizarre Patient Orientation: Person Level of Consciousness: Awake, Drowsy and Inappropriate Patient Behavior: Talkative, Posturing, Suspicious, Restless, Anxious, Resistive to Care, Distractible, Confused and Good Eye Contact Mood Description: Labile Affect Description: Labile, Angry, Elated, Apprehensive and Expansive Patient Cognition Impaired: Yes Ability to Follow Directions: Fair Speech Pattern: Spontaneous Speech, Soft-Spoken, Cofabulation, Rapid, Excessive, Loud and Pressured Memory Description: Remote Impaired and Episodic Impaired Hallucinations: Auditory Delusions: Paranoid Ideation and Grandiose Perceptual Disturbances: Hallucinations Thought Process: Racing, Illogical, Distracted and Word Salad Thought Content: positive for Racing, positive for Loose Associations, positive for Disorganized, negative for Suicidal Ideation or negative for Homicidal Ideation Abnormal Motor Activity Signs and Symptoms: Agitation, Hyperactivity and Restlessness Judgement: Poor Assessment & Plan Assessment & Plan (1) Bipolar affective disorder, mixed, severe, with psychotic behavior: Status: Acute Code(s): F31.64 - Bipolar disorder, current episode mixed, severe, with psychotic features (2) Dyskinesia, tardive: Status: Acute Code(s): G24.01 - Drug induced subacute dyskinesia Plan Pt with tx resistant joleen with psychosis hx good response to ect did not respond to medication last adm Becomes psychotic very quickly hx aggression had recently been non compliant with inj abilify outpt had requested ect yesterday now when seen pt manic grossly disorganized will need court order unless clears quickly I spent _45 minutes with the patient and/or on the patient floor today, greater than?50% of which was spent counseling/coordinating care. Case reviewed caw sw chart reviewed pt seen
[2021-08-20 08:00] VITALS: BP 153/85; PULSE 113; TEMP 37.1
--- NOTE | 2021-08-20 08:37 | PC.NURSE ---
Addendum entered by Pio Gilbert RN 08/20/21 08:40: From this RN was part of 2:1 observation; pt intermittently tore signs off from hallway, jumped on chair and tore down a ceiling tile. Pt would briefly follow direction and then suddenly quickly pull at articles on wall. Patient was not physically aggressive or verbally threatening to staff, however could not be maintained by one staff member. Original Note: Patient was in an acute state of joleen, unable to dialogue. From
[2021-08-20] MEDS: Multivitamin TABLET 1 TAB PO (09:11)
[2021-08-20] MEDS: ARIPiprazole 30 MG TABLET PO (09:11)
[2021-08-20] MEDS: hydroCHLOROthiazide 12.5 MG TABLET 6.25 MG PO (09:12)
[2021-08-20] MEDS: amLODIPine Besylate 10 MG TABLET PO (09:12)
[2021-08-20] MEDS: Bisoprolol Fumarate 5 MG TABLET 10 MG PO (09:13)
[2021-08-20] MEDS: LORazepam 1 MG TABLET 2 MG PO ×2 (11:22→23:53)
[2021-08-20] MEDS: ARIPiprazole ER 400 MG SUSER.SYR IM (14:09)
--- NOTE | 2021-08-20 17:35 | P.CNHOSGPS_ITS ---
History of Present Illness Data of Consult Service Date: 08/20/21 Primary Care Provider: Unknown Physician HPI Reason for consult: ECT risk stratification 46-year-old male admitted to psychiatric unit scheduled to undergo ECT . No acute medical issues at this time Review of Systems Review of Systems: Unable to obtain secondary to rambling speech and inability to focus on questions PMFSH Medical History HTN (hypertension) Kidney problem Social History Household Members: Spouse Household Members Other:: Housing: House Do you presently have visiting nurse or other home services: No Unable to assess alcohol history related to: Unknown Patient Tobacco Use Status: Tobacco use Unknown Second Hand Smoke Exposure: No Use of substances other than those prescribed or required for medical reasons: Unknown Currently Displaying Signs/Symptoms of Drug Intoxication Withdrawal: No Any prior treatment program specific to substance use: No Advance Directives: No Advance Directives Information Provided: No Advance Directives on File: No Healthcare Proxy: Yes Guardian: No Do you have thoughts of harming others: None Do you have a plan to hurt others: No Plan Recently lost weight without trying: Unsure How much weight loss: Unsure service: No Sexual orientation: Straight/Heterosexual Meds Allergies Allergy/AdvReac Type Severity Reaction Status Date / Time haloperidol [From Haldol] Allergy Unknown Verified 07/22/20 03:38 Active Medications: Current Medications Acetaminophen (Acetaminophen 325 Mg Tablet) 975 mg PO QID PRN PRN Reason: Mild Pain (Scale Score 1-4) Last Admin: 08/16/21 22:56 Dose: 975 mg Documented by: Al Hydroxide/Mg Hydroxide (Magnesium Hydrox/Alum Hydrox 30 Ml Oral.Susp) 30 ml PO Q6H PRN PRN Reason: Heartburn/Nausea Amlodipine Besylate (Amlodipine Besylate 10 Mg Tablet) 10 mg PO DAILY [facility]; Protocol Last Admin: 08/20/21 09:12 Dose: 10 mg Documented by: Aripiprazole (Aripiprazole 30 Mg Tablet) 30 mg PO DAILY [facility] Last Admin: 08/20/21 09:11 Dose: 30 mg Documented by: Aripiprazole (Aripiprazole Er 400 Mg Suser.Syr) 400 mg IM Q28D [facility] Last Admin: 08/20/21 14:09 Dose: 400 mg Documented by: Bisoprolol Fumarate (Bisoprolol Fumarate 5 Mg Tablet) 10 mg PO DAILY [facility] Last Admin: 08/20/21 09:13 Dose: 10 mg Documented by: Hydrochlorothiazide (Hydrochlorothiazide 12.5 Mg Tablet) 6.25 mg PO DAILY [facility] Last Admin: 08/20/21 09:12 Dose: 6.25 mg Documented by: Hydroxyzine HCl (Hydroxyzine Hcl 25 Mg Tablet) 25 mg PO Q6H PRN PRN Reason: Anxiety Last Admin: 08/17/21 16:27 Dose: 25 mg Documented by: Lorazepam (Lorazepam 1 Mg Tablet) 2 mg PO Q4H PRN PRN Reason: anxiety/restlessness Last Admin: 08/20/21 11:22 Dose: 2 mg Documented by: Magnesium Hydroxide (Milk Of Magnesia 30 Ml Oral.Susp) 30 ml PO DAILY PRN PRN Reason: Constipation Multivitamins/Vitamin C (Multivitamin Tablet) 1 tab PO DAILY [facility] Last Admin: 08/20/21 09:11 Dose: 1 tab Documented by: Pharmacy Consult (Consult Rx Perform Med Rec) 1 each MISCELLANE ONCE PRN PRN Reason: Consult order Trazodone HCl (Trazodone Hcl 50 Mg Tablet) 50 mg PO BEDTIME PRN PRN Reason: Insomnia Last Admin: 08/18/21 23:14 Dose: 50 mg Documented by: Home Medications Medication Instructions Recorded Confirmed Last Taken Type acetaminophen 500 mg tablet 1,000 mg PO QID PRN 08/16/21 08/16/21 Unknown History (Tylenol Extra Strength) amlodipine 10 mg tablet 1 tab PO DAILY 08/16/21 08/16/21 Unknown History aripiprazole 400 mg intramuscular 400 mg IM QMONTH 08/16/21 08/16/21 Unknown History suspension,extended release (Abilify Maintena) bisoprolol 10 1 tab PO DAILY 08/16/21 08/16/21 Unknown History mg-hydrochlorothiazide 6.25 mg tablet multivitamin 1 tab PO DAILY 08/16/21 08/16/21 Unknown History vitamin B complex 1 tab PO DAILY 08/16/21 08/16/21 Unknown History Results Labs CBC and Chem 7: 08/16/21 16:51 08/17/21 06:42 Assessment and Plan (1) Physical exam: Status: Acute Plan 46-year-old male with no acute medical issues scheduled for ECT . He has a moderate but acceptable cardiovascular risk for ECT and can proceed as planned. There are no medically prohibitively issues Physical Exam Vital Signs: Last Vital Signs Temp 98.7 F 08/20/21 08:00 Pulse 113 H 08/20/21 08:00 Resp 16 08/19/21 18:00 BP 153/85 H 08/20/21 08:00 Pulse Ox 96 08/19/21 08:13 BMI result Body Mass Index 28.5 Const Other: Somnolent but arousable. Rambling speech nonsensical in nature Resp Other: Clear to auscultation bilaterally no rales rhonchi or wheezes Cardio Other: No S4; positive S1-S2; no S3 murmurs or gallops GI Other: Soft nontender nondistended with normoactive bowel sounds Neuro Other: Cranial nerves 2-12 grossly intact as tested. Motor is 5/5 all extremities. Sensation is intact. Cranial nerves: Yes CN's II-XII intact bilaterally Extrem Other: No edema bilaterally
--- NOTE | 2021-08-20 19:14 | P.PNPSI_ITS ---
Subjective Subjective Date of Service: 08/20/21 Reason For Visit: jloeen Subjective Notes: Conditional Voluntary Healthcare Proxy: No Guardianship: No Medical Problems Affecting Mental Status: No Interim History: Acute joleen requiring 2:1 staff with pt. Labile, unpredictable, accepting PO medications most of the time. Will begin Depakote trial tonight. Seen by Dr. James for ECT Consult. We will need to file for court approved treatment prior to this intervention. Medication Compliance: Yes Side effects from medications: No Attending Groups: No Review of Systems Acute medical concerns: No Medical Review of Systems: unchanged Review of Systems Reports behavioral changes, Reports confusion and Reports memory loss Psychiatric: Reports abnormal sleep pattern, Reports anxiety, Reports behavioral changes, Reports change in appetite, Reports confusion, Reports difficulty concentrating, Reports auditory hallucinations, Reports irritability, Reports anhedonia, Reports memory loss, Reports mood swings, Reports paranoia, Reports visual hallucinations and Reports hallucinations Mental Status Exam Mental Status Exam Patient Appearance: Fatigued, Disheveled, Unkempt and Bizarre Patient Orientation: Person Level of Consciousness: Awake, Disoriented, Restless, Alert and Inappropriate Patient Behavior: Talkative, Posturing, Hyperactive, Cooperative, Suspicious, Restless, Wandering, Anxious, Resistive to Care, Distractible, Confused, Good Eye Contact, Impulsive, Pacing and Poor Eye Contact Mood Description: Labile Affect Description: Labile Patient Cognition Impaired: Yes Ability to Follow Directions: Fair Speech Pattern: Spontaneous Speech, Soft-Spoken, Cofabulation, Rapid, Excessive, Loud, Delayed and Pressured Memory Description: Remote Impaired and Episodic Impaired Hallucinations: Auditory Delusions: Paranoid Ideation, Grandiose and Present Perceptual Disturbances: Depersonalization, Derealization and Hallucinations Thought Process: Racing, Illogical and Distracted Thought Content: positive for Racing, positive for Loose Associations and positive for Disorganized Abnormal Motor Activity Signs and Symptoms: Agitation, Hyperactivity and Restlessness Judgement: Poor Diagnostics Vital Signs (24Hr): Vital Signs - 24 hr 08/20/21 08:00 Temperature 98.7 F Pulse Rate 113 H Blood Pressure 153/85 H BMI result Body Mass Index 28.5 Labs Results: 08/16/21 16:51 08/17/21 06:42 Labs: Laboratory Results - last 48 hr 08/17/21 06:42 Vitamin B12 558 Folate > 20.0 Medications Medications Current Medications Acetaminophen (Acetaminophen 325 Mg Tablet) 975 mg PO QID PRN PRN Reason: Mild Pain (Scale Score 1-4) Last Admin: 08/16/21 22:56 Dose: 975 mg Documented by: Al Hydroxide/Mg Hydroxide (Magnesium Hydrox/Alum Hydrox 30 Ml Oral.Susp) 30 ml PO Q6H PRN PRN Reason: Heartburn/Nausea Amlodipine Besylate (Amlodipine Besylate 10 Mg Tablet) 10 mg PO DAILY [facility]; Protocol Last Admin: 08/20/21 09:12 Dose: 10 mg Documented by: Aripiprazole (Aripiprazole 30 Mg Tablet) 30 mg PO DAILY [facility] Last Admin: 08/20/21 09:11 Dose: 30 mg Documented by: Aripiprazole (Aripiprazole Er 400 Mg Suser.Syr) 400 mg IM Q28D [facility] Last Admin: 08/20/21 14:09 Dose: 400 mg Documented by: Bisoprolol Fumarate (Bisoprolol Fumarate 5 Mg Tablet) 10 mg PO DAILY [facility] Last Admin: 08/20/21 09:13 Dose: 10 mg Documented by: Hydrochlorothiazide (Hydrochlorothiazide 12.5 Mg Tablet) 6.25 mg PO DAILY [facility] Last Admin: 08/20/21 09:12 Dose: 6.25 mg Documented by: Hydroxyzine HCl (Hydroxyzine Hcl 25 Mg Tablet) 25 mg PO Q6H PRN PRN Reason: Anxiety Last Admin: 08/17/21 16:27 Dose: 25 mg Documented by: Lorazepam (Lorazepam 1 Mg Tablet) 2 mg PO Q4H PRN PRN Reason: anxiety/restlessness Last Admin: 08/20/21 11:22 Dose: 2 mg Documented by: Magnesium Hydroxide (Milk Of Magnesia 30 Ml Oral.Susp) 30 ml PO DAILY PRN PRN Reason: Constipation Multivitamins/Vitamin C (Multivitamin Tablet) 1 tab PO DAILY [facility] Last Admin: 08/20/21 09:11 Dose: 1 tab Documented by: Pharmacy Consult (Consult Rx Perform Med Rec) 1 each MISCELLANE ONCE PRN PRN Reason: Consult order Trazodone HCl (Trazodone Hcl 50 Mg Tablet) 50 mg PO BEDTIME PRN PRN Reason: Insomnia Last Admin: 08/18/21 23:14 Dose: 50 mg Documented by: Allergies Allergies Allergy/AdvReac Type Severity Reaction Status Date / Time haloperidol [From Haldol] Allergy Unknown Verified 07/22/20 03:38 Assessment & Plan Assessment & Plan (1) Bipolar affective disorder, mixed, severe, with psychotic behavior: Status: Acute Code(s): F31.64 - Bipolar disorder, current episode mixed, severe, with psychotic features Assessment and Plan: 08/20/21 Depakote ER 1500 mg hs Apply to the court for consideration for ECT. Plan 46-year-old male with no acute medical issues scheduled for ECT . He has a moderate but acceptable cardiovascular risk for ECT and can proceed as planned. There are no medically prohibitively issues I spent minutes with the patient and/or on the patient floor today, greater than?50% of which was spent counseling/coordinating care. Informed Consent: does not understand Reason for contiued inpatient stay Substantial Risk for: harm to self, harm to others, inability to function, rapid decompensation and med/psych decompensation
[2021-08-20] MEDS: Divalproex Sodium ER 500 MG TAB.ER.24H 1500 MG PO (21:38)
[2021-08-20] MEDS: hydrOXYzine HCL 25 MG TABLET PO (23:53)
[2021-08-20] MEDS: traZODone HCL 50 MG TABLET PO (23:53)
--- NOTE | 2021-08-21 | ECG_ITS ---
Test Reason : phy meds Blood Pressure : / mmHG Vent. Rate : 078 BPM Atrial Rate : 078 BPM P-R Int : 132 ms QRS Dur : 090 ms QT Int : 392 ms P-R-T Axes : 023 037 015 degrees QTc Int : 446 ms Normal sinus rhythm Normal ECG When compared with ECG of 16-AUG-2021 23:42, No significant change was found Referred By: Emi Duque Electronically Signed By:Tito Ivy
[2021-08-21] MEDS: Acetaminophen 325 MG TABLET 975 MG PO (06:35)
[2021-08-21] MEDS: Multivitamin TABLET 1 TAB PO (07:52)
[2021-08-21] MEDS: hydrOXYzine HCL 25 MG TABLET PO (07:52)
[2021-08-21] MEDS: hydroCHLOROthiazide 12.5 MG TABLET 6.25 MG PO (07:52)
[2021-08-21] MEDS: Bisoprolol Fumarate 5 MG TABLET 10 MG PO (07:52)
[2021-08-21] MEDS: ARIPiprazole 30 MG TABLET PO (07:52)
[2021-08-21] MEDS: amLODIPine Besylate 10 MG TABLET PO (07:53)
[2021-08-21 08:11] VITALS: BP 140/85; TEMP 36.6; O2SAT 97
--- NOTE | 2021-08-21 11:27 | HO.PSYCHPN ---
Subjective Subjective Date of Service: 08/21/21 Reason For Visit: joleen Subjective Notes: Conditional Voluntary Healthcare Proxy: No Guardianship: No Medical Problems Affecting Mental Status: No Interim History: Remains with acute joleen and with delusions, paranoia and requiring 2:1 specialing. ECT continues to be considered. Tolerating Depakote. Will titrate dosing today after dividing dosing to 750 mg ER BID Medication Compliance: Yes Side effects from medications: No Attending Groups: No Review of Systems Acute medical concerns: No Medical Review of Systems: unchanged Review of Systems Reports behavioral changes, Reports confusion and Reports memory loss Psychiatric: Reports abnormal sleep pattern, Reports anxiety, Reports behavioral changes, Reports change in appetite, Reports confusion, Reports difficulty concentrating, Reports auditory hallucinations, Reports irritability, Reports anhedonia, Reports memory loss, Reports mood swings, Reports paranoia, Reports visual hallucinations and Reports hallucinations Mental Status Exam Mental Status Exam Patient Appearance: Fatigued, Disheveled, Unkempt and Bizarre Patient Orientation: Person Level of Consciousness: Awake, Drowsy and Inappropriate Patient Behavior: Talkative, Posturing, Suspicious, Restless, Anxious, Resistive to Care, Distractible, Confused and Good Eye Contact Mood Description: Labile Affect Description: Labile, Angry, Elated, Apprehensive and Expansive Patient Cognition Impaired: Yes Ability to Follow Directions: Fair Speech Pattern: Spontaneous Speech, Soft-Spoken, Cofabulation, Rapid, Excessive, Loud and Pressured Memory Description: Remote Impaired and Episodic Impaired Hallucinations: Auditory Delusions: Paranoid Ideation and Grandiose Perceptual Disturbances: Hallucinations Thought Process: Racing, Illogical, Distracted and Word Salad Thought Content: positive for Racing, positive for Loose Associations, positive for Disorganized, negative for Suicidal Ideation or negative for Homicidal Ideation Abnormal Motor Activity Signs and Symptoms: Agitation, Hyperactivity and Restlessness Judgement: Poor Diagnostics Vital Signs (24Hr): Vital Signs - 24 hr 08/21/21 08:11 Temperature 97.9 F Blood Pressure 140/85 H Pulse Oximetry 97 BMI result Body Mass Index 28.5 Labs Results: 08/16/21 16:51 08/17/21 06:42 Medications Medications Current Medications Acetaminophen (Acetaminophen 325 Mg Tablet) 975 mg PO QID PRN PRN Reason: Mild Pain (Scale Score 1-4) Last Admin: 08/21/21 06:35 Dose: 975 mg Documented by: Al Hydroxide/Mg Hydroxide (Magnesium Hydrox/Alum Hydrox 30 Ml Oral.Susp) 30 ml PO Q6H PRN PRN Reason: Heartburn/Nausea Amlodipine Besylate (Amlodipine Besylate 10 Mg Tablet) 10 mg PO DAILY [facility]; Protocol Last Admin: 08/21/21 07:53 Dose: 10 mg Documented by: Aripiprazole (Aripiprazole 30 Mg Tablet) 30 mg PO DAILY [facility] Last Admin: 08/21/21 07:52 Dose: 30 mg Documented by: Aripiprazole (Aripiprazole Er 400 Mg Suser.Syr) 400 mg IM Q28D [facility] Last Admin: 08/20/21 14:09 Dose: 400 mg Documented by: Bisoprolol Fumarate (Bisoprolol Fumarate 5 Mg Tablet) 10 mg PO DAILY [facility] Last Admin: 08/21/21 07:52 Dose: 10 mg Documented by: Clonazepam (Clonazepam 1 Mg Tablet) 1 mg PO BEDTIME PRN PRN Reason: Insomnia Clonazepam (Clonazepam 1 Mg Tablet) 1 mg PO BEDTIME [facility] Divalproex Sodium (Divalproex Sodium Er 250 Mg Tab.Er.24h) 750 mg PO BID [facility] Hydrochlorothiazide (Hydrochlorothiazide 12.5 Mg Tablet) 6.25 mg PO DAILY [facility] Last Admin: 08/21/21 07:52 Dose: 6.25 mg Documented by: Hydroxyzine HCl (Hydroxyzine Hcl 25 Mg Tablet) 25 mg PO Q6H PRN PRN Reason: Anxiety Last Admin: 08/21/21 07:52 Dose: 25 mg Documented by: Lorazepam (Lorazepam 1 Mg Tablet) 2 mg PO Q4H PRN PRN Reason: anxiety/restlessness Last Admin: 08/20/21 23:53 Dose: 2 mg Documented by: Magnesium Hydroxide (Milk Of Magnesia 30 Ml Oral.Susp) 30 ml PO DAILY PRN PRN Reason: Constipation Multivitamins/Vitamin C (Multivitamin Tablet) 1 tab PO DAILY [facility] Last Admin: 08/21/21 07:52 Dose: 1 tab Documented by: Pharmacy Consult (Consult Rx Perform Med Rec) 1 each MISCELLANE ONCE PRN PRN Reason: Consult order Trazodone HCl (Trazodone Hcl 50 Mg Tablet) 50 mg PO BEDTIME PRN PRN Reason: Insomnia Last Admin: 08/20/21 23:53 Dose: 50 mg Documented by: Allergies Allergies Allergy/AdvReac Type Severity Reaction Status Date / Time haloperidol [From Haldol] Allergy Unknown Verified 07/22/20 03:38 Assessment & Plan Assessment & Plan (1) Bipolar affective disorder, mixed, severe, with psychotic behavior: Status: Acute Code(s): F31.64 - Bipolar disorder, current episode mixed, severe, with psychotic features (2) Dyskinesia, tardive: Status: Acute Code(s): G24.01 - Drug induced subacute dyskinesia Plan Pt with tx resistant joleen with psychosis hx good response to ect did not respond to medication last adm Becomes psychotic very quickly hx aggression had recently been non compliant with inj abilify outpt had requested ect yesterday now when seen pt manic grossly disorganized will need court order unless clears quickly . 08/21/21 Increase Depakote ER to 1000 mg bid. I spent minutes with the patient and/or on the patient floor today, greater than?50% of which was spent counseling/coordinating care. Informed Consent: does not understand Reason for contiued inpatient stay Substantial Risk for: harm to self, harm to others, inability to function, rapid decompensation and med/psych decompensation
[2021-08-21] MEDS: Divalproex Sodium ER 250 MG TAB.ER.24H 750 MG PO (13:36)
--- NOTE | 2021-08-21 16:14 | HO.PSYCHPN ---
Subjective Subjective Reason For Visit: joleen Diagnostics Vital Signs (24Hr): Vital Signs - 24 hr 08/21/21 08:11 Temperature 97.9 F Blood Pressure 140/85 H Pulse Oximetry 97 BMI result Body Mass Index 28.5 Labs Results: 08/16/21 16:51 08/17/21 06:42 Medications Medications Current Medications Acetaminophen (Acetaminophen 325 Mg Tablet) 975 mg PO QID PRN PRN Reason: Mild Pain (Scale Score 1-4) Last Admin: 08/21/21 06:35 Dose: 975 mg Documented by: Al Hydroxide/Mg Hydroxide (Magnesium Hydrox/Alum Hydrox 30 Ml Oral.Susp) 30 ml PO Q6H PRN PRN Reason: Heartburn/Nausea Amlodipine Besylate (Amlodipine Besylate 10 Mg Tablet) 10 mg PO DAILY [facility]; Protocol Last Admin: 08/21/21 07:53 Dose: 10 mg Documented by: Aripiprazole (Aripiprazole 30 Mg Tablet) 30 mg PO DAILY [facility] Last Admin: 08/21/21 07:52 Dose: 30 mg Documented by: Aripiprazole (Aripiprazole Er 400 Mg Suser.Syr) 400 mg IM Q28D [facility] Last Admin: 08/20/21 14:09 Dose: 400 mg Documented by: Bisoprolol Fumarate (Bisoprolol Fumarate 5 Mg Tablet) 10 mg PO DAILY [facility] Last Admin: 08/21/21 07:52 Dose: 10 mg Documented by: Clonazepam (Clonazepam 1 Mg Tablet) 1 mg PO BEDTIME PRN PRN Reason: Insomnia Clonazepam (Clonazepam 1 Mg Tablet) 1 mg PO BEDTIME [facility] Divalproex Sodium (Divalproex Sodium Er 250 Mg Tab.Er.24h) 750 mg PO BID [facility] Last Admin: 08/21/21 13:36 Dose: 750 mg Documented by: Hydrochlorothiazide (Hydrochlorothiazide 12.5 Mg Tablet) 6.25 mg PO DAILY [facility] Last Admin: 08/21/21 07:52 Dose: 6.25 mg Documented by: Hydroxyzine HCl (Hydroxyzine Hcl 25 Mg Tablet) 25 mg PO Q6H PRN PRN Reason: Anxiety Last Admin: 08/21/21 07:52 Dose: 25 mg Documented by: Lorazepam (Lorazepam 1 Mg Tablet) 2 mg PO Q4H PRN PRN Reason: anxiety/restlessness Last Admin: 08/20/21 23:53 Dose: 2 mg Documented by: Magnesium Hydroxide (Milk Of Magnesia 30 Ml Oral.Susp) 30 ml PO DAILY PRN PRN Reason: Constipation Multivitamins/Vitamin C (Multivitamin Tablet) 1 tab PO DAILY [facility] Last Admin: 08/21/21 07:52 Dose: 1 tab Documented by: Pharmacy Consult (Consult Rx Perform Med Rec) 1 each MISCELLANE ONCE PRN PRN Reason: Consult order Trazodone HCl (Trazodone Hcl 50 Mg Tablet) 50 mg PO BEDTIME PRN PRN Reason: Insomnia Last Admin: 08/20/21 23:53 Dose: 50 mg Documented by: Allergies Allergies Allergy/AdvReac Type Severity Reaction Status Date / Time haloperidol [From Haldol] Allergy Unknown Verified 07/22/20 03:38 Assessment & Plan Assessment & Plan (1) Bipolar affective disorder, mixed, severe, with psychotic behavior: Status: Acute Code(s): F31.64 - Bipolar disorder, current episode mixed, severe, with psychotic features (2) Dyskinesia, tardive: Status: Acute Code(s): G24.01 - Drug induced subacute dyskinesia Plan Pt with tx resistant joleen with psychosis hx good response to ect did not respond to medication last adm Becomes psychotic very quickly hx aggression had recently been non compliant with inj abilify outpt had requested ect yesterday now when seen pt manic grossly disorganized will need court order unless clears quickly I spent minutes with the patient and/or on the patient floor today, greater than?50% of which was spent counseling/coordinating care.
--- NOTE | 2021-08-21 18:56 | PC.ADMIT ---
Pt alert and confused. Pt is irritable, agitated at staff for no reason when staff attempted to give him meds. Pt refused to take full dose of meds. 2mg of Ativan given one tab taken one tab spate out. Staff feels targeted d/t pt ranting racial slur. Pt re-assigned. Charge nurse is aware.
[2021-08-21] MEDS: LORazepam 1 MG TABLET 2 MG PO (19:20)
[2021-08-21] MEDS: Divalproex Sodium ER 500 MG TAB.ER.24H 1000 MG PO (19:38)
[2021-08-21] MEDS: traZODone HCL 50 MG TABLET PO (19:38)
[2021-08-21] MEDS: clonazePAM 1 MG TABLET PO (19:38)
[2021-08-22] MEDS: Divalproex Sodium ER 500 MG TAB.ER.24H 1000 MG PO ×2 (07:52→19:37)
[2021-08-22] MEDS: ARIPiprazole 30 MG TABLET PO (07:52)
[2021-08-22] MEDS: hydroCHLOROthiazide 12.5 MG TABLET 6.25 MG PO (07:52)
[2021-08-22] MEDS: Bisoprolol Fumarate 5 MG TABLET 10 MG PO (07:52)
[2021-08-22] MEDS: Multivitamin TABLET 1 TAB PO (07:53)
[2021-08-22] MEDS: amLODIPine Besylate 10 MG TABLET PO (07:53)
[2021-08-22 08:10] VITALS: BP 121/83; PULSE 94; RESP 18; TEMP 36.6; O2SAT 98
[2021-08-22] MEDS: LORazepam 1 MG TABLET 2 MG PO (12:10)
[2021-08-22] MEDS: hydrOXYzine HCL 25 MG TABLET PO (12:10)
[2021-08-22] MEDS: chlorproMAZINE HCl 100 MG TABLET PO ×2 (13:01→14:55)
[2021-08-22] MEDS: diazePAM 5 MG TABLET 10 MG PO (13:02)
[2021-08-22] MEDS: chlorproMAZINE HCl 25 MG TABLET 50 MG PO ×2 (16:00→19:38)
[2021-08-22] MEDS: diazePAM 5 MG TABLET PO (19:38)
--- NOTE | 2021-08-22 23:41 | HO.PSYCHPN ---
Subjective Subjective Date of Service: 08/22/21 Reason For Visit: joleen Subjective Notes: Cruz Warning and Conditional Voluntary Healthcare Proxy: No Guardianship: No Medical Problems Affecting Mental Status: No Interim History: Pt remains on 2-1 he is pressured intrusive with poor repspect for others per space at times can be hostile aggressive physically holding others at times difficult to redirect Medication Compliance: Yes Attending Groups: No Mental Status Exam Mental Status Exam Patient Appearance: Fatigued, Disheveled, Unkempt and Bizarre Patient Orientation: Person Level of Consciousness: Awake, Drowsy and Inappropriate Patient Behavior: Talkative, Posturing, Suspicious, Aggressive, Restless, Anxious, Resistive to Care, Distractible, Confused and Good Eye Contact Mood Description: Labile Affect Description: Labile, Angry, Elated, Apprehensive and Expansive Patient Cognition Impaired: Yes Ability to Follow Directions: Fair Speech Pattern: Spontaneous Speech, Soft-Spoken, Cofabulation, Rapid, Excessive, Loud and Pressured Memory Description: Remote Impaired and Episodic Impaired Hallucinations: Auditory Delusions: Paranoid Ideation and Grandiose Perceptual Disturbances: Hallucinations Thought Process: Racing, Illogical, Distracted and Word Salad Thought Content: positive for Flight of Ideas, positive for Racing, positive for Loose Associations, positive for Disorganized, negative for Suicidal Ideation or negative for Homicidal Ideation Abnormal Motor Activity Signs and Symptoms: Agitation, Hyperactivity and Restlessness Judgement: Poor Diagnostics Vital Signs (24Hr): Vital Signs - 24 hr 08/22/21 08:10 Temperature 97.9 F Pulse Rate 94 Respiratory Rate 18 Blood Pressure 121/83 Pulse Oximetry 98 BMI result Body Mass Index 28.5 Labs Results: 08/16/21 16:51 08/17/21 06:42 Medications Medications Current Medications Acetaminophen (Acetaminophen 325 Mg Tablet) 975 mg PO QID PRN PRN Reason: Mild Pain (Scale Score 1-4) Last Admin: 08/21/21 06:35 Dose: 975 mg Documented by: Al Hydroxide/Mg Hydroxide (Magnesium Hydrox/Alum Hydrox 30 Ml Oral.Susp) 30 ml PO Q6H PRN PRN Reason: Heartburn/Nausea Amlodipine Besylate (Amlodipine Besylate 10 Mg Tablet) 10 mg PO DAILY [facility]; Protocol Last Admin: 08/22/21 07:53 Dose: 10 mg Documented by: Aripiprazole (Aripiprazole 30 Mg Tablet) 30 mg PO DAILY [facility] Last Admin: 08/22/21 07:52 Dose: 30 mg Documented by: Aripiprazole (Aripiprazole Er 400 Mg Suser.Syr) 400 mg IM Q28D [facility] Last Admin: 08/20/21 14:09 Dose: 400 mg Documented by: Bisoprolol Fumarate (Bisoprolol Fumarate 5 Mg Tablet) 10 mg PO DAILY [facility] Last Admin: 08/22/21 07:52 Dose: 10 mg Documented by: Chlorpromazine HCl (Chlorpromazine Hcl 25 Mg Tablet) 50 mg PO Q4H PRN PRN Reason: Psychosis Last Admin: 08/22/21 19:38 Dose: 50 mg Documented by: Diazepam (Diazepam 5 Mg Tablet) 5 mg PO TID PRN PRN Reason: anxiety/restlessness Diazepam (Diazepam 5 Mg Tablet) 5 mg PO BEDTIME [facility] Last Admin: 08/22/21 19:38 Dose: 5 mg Documented by: Divalproex Sodium (Divalproex Sodium Er 500 Mg Tab.Er.24h) 1,000 mg PO BID [facility] Last Admin: 08/22/21 19:37 Dose: 1,000 mg Documented by: Hydrochlorothiazide (Hydrochlorothiazide 12.5 Mg Tablet) 6.25 mg PO DAILY [facility] Last Admin: 08/22/21 07:52 Dose: 6.25 mg Documented by: Magnesium Hydroxide (Milk Of Magnesia 30 Ml Oral.Susp) 30 ml PO DAILY PRN PRN Reason: Constipation Multivitamins/Vitamin C (Multivitamin Tablet) 1 tab PO DAILY [facility] Last Admin: 08/22/21 07:53 Dose: 1 tab Documented by: Pharmacy Consult (Consult Rx Perform Med Rec) 1 each MISCELLANE ONCE PRN PRN Reason: Consult order Trazodone HCl (Trazodone Hcl 50 Mg Tablet) 50 mg PO BEDTIME PRN PRN Reason: Insomnia Last Admin: 08/21/21 19:38 Dose: 50 mg Documented by: Allergies Allergies Allergy/AdvReac Type Severity Reaction Status Date / Time haloperidol [From Haldol] Allergy Unknown Verified 07/22/20 03:38 Assessment & Plan Assessment & Plan (1) Bipolar affective disorder, mixed, severe, with psychotic behavior: Status: Acute Code(s): F31.64 - Bipolar disorder, current episode mixed, severe, with psychotic features (2) Dyskinesia, tardive: Status: Acute Code(s): G24.01 - Drug induced subacute dyskinesia Plan Pt with tx resistant joleen with psychosis hx good response to ect did not respond to medication last adm Becomes psychotic very quickly hx aggression had recently been non compliant with inj abilify outpt had requested ect yesterday now when seen pt manic grossly disorganized will need court order unless clears quickly . 08/21/21 Increase Depakote ER to 1000 mg bid. 08/22/21 Thorazine added for severe agitation valium added changed from lorazepam ck dep level pt not able to give consent at this time disorganized tangential cannot take in info consistantly regarding ect physically grabbing others sexually preoccupied filed for tx order sec 7-8 monitor response to depakote I spent minutes with the patient and/or on the patient floor today, greater than?50% of which was spent counseling/coordinating care. Reason for contiued inpatient stay Substantial Risk for: harm to others and rapid decompensation
[2021-08-23] VITALS (10 sets, daily range): BP systolic 99–142; BP diastolic 56–94; PULSE 70–101; RESP 16–20; TEMP 36.6–37; O2SAT 86–100
[2021-08-23] MEDS: diazePAM 5 MG TABLET PO ×3 (01:15→19:23)
[2021-08-23] MEDS: chlorproMAZINE HCl 25 MG TABLET 50 MG PO ×5 (01:16→21:17)
[2021-08-23] MEDS: traZODone HCL 50 MG TABLET PO ×2 (01:47→20:32)
--- NOTE | 2021-08-23 02:12 | P.EN_ITS ---
Event Note Date of Service: 08/23/21 Event Note: * pt with bipolar joleen hx good repsonse to ect started on thorazine depakote has been aggressive threatening not responding to medication requiring mechanical restraint to prevent serious injury to others
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
--- NOTE | 2021-08-23 07:13 | PM.EVENT ---
Event Note Date of Service: 08/23/21 Event Note: Called to evaluate patient following restraint. Vital signs reviewed, BP 118/77, Pulse 74, O2 sat 99% on room air. Upon evaluation, he was lying in bed in 4 point restraints. He appeared unharmed, was breathing easy and able to speak in full sentences.
[2021-08-23] MEDS: ARIPiprazole 30 MG TABLET PO (09:40)
[2021-08-23] MEDS: Multivitamin TABLET 1 TAB PO (09:40)
[2021-08-23] MEDS: Bisoprolol Fumarate 5 MG TABLET 10 MG PO (09:40)
[2021-08-23] MEDS: amLODIPine Besylate 10 MG TABLET PO (09:40)
[2021-08-23] MEDS: Divalproex Sodium ER 500 MG TAB.ER.24H 1000 MG PO ×2 (09:41→19:23)
[2021-08-23] MEDS: hydroCHLOROthiazide 12.5 MG TABLET 6.25 MG PO (09:41)
--- NOTE | 2021-08-23 10:16 | P.EN_ITS ---
Event Note Date of Service: 08/23/21 Event Note: [facility] manic assultive grabbing others not safe with himself physically jumping in unsafe manner when sedated seen 920 for 1 hr response somewhat delayed secondary to being with pt on geriatric unit that needed attention has received im kinga case reviewed repeatedly with nursing staff
--- NOTE | 2021-08-23 11:29 | PM.EVENT ---
Event Note Date of Service: 08/23/21 Event Note: Pt seen on multiple occassions 1 hr post restraint comfortable stable vs had been aggressive threatening assualtive seems to be resonding to kinga discussed with staff ways to prevent restraint tx plan developed
--- NOTE | 2021-08-23 14:28 | PC.NURSE ---
On 08/22/21 at approximately 1300 I walked onto the inpatient unit to find this patient running down the halls ripping down all of the signs on the doors. As he was running his pants were falling down exposing his buttocks. He was redirected back toward his room but he had the signs in the plastic holders in his hands and wouldn't give them over to staff. He then began breaking the plastic putting pieces of plastic in one hand and the signs in the other. He was screaming and grunting as he was walking down the hallway with staff attempting to get the signs and plastic pieces out of his hands. He finally made it to his room when he grabbed a staff's phone and keys that had been put down to assist in retrieving the signs and the plastic, He dropped the keys but attempted to put the phone in a pitcher of water as staff tried to intervene a staff member landed on the floor. Phone was finally retrieved and signs and plastic were retrieved by another staff member who walked down the hallway with them. The patient then went to charge at that staff member to get them back. He was screaming and grunting as he ran down the hallway again as his pants were falling down. The staff member was yelled to run. She was able to safely dispose of the signs.
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
--- NOTE | 2021-08-23 22:47 | P.PNPSI_ITS ---
Subjective Subjective Date of Service: 08/23/21 Reason For Visit: joleen Subjective Notes: Conditional Voluntary Healthcare Proxy: Yes (invoked hcp) Interim History: Patient had a difficult overnight required restraints on multiple occasions Ativan has been changed to Valium Thorazine added as a p.r.n. and IM Thorazine. Patient has a history of MS with Haldol has been on Depakote. So far no clear response. We learned today that the patient does have a healthcare proxy met with healthcare proxy today. Healthcare proxy invoked patient floridly manic psychotic unable to take information at this time. Clear deterioration from admission. Patient's is healthcare proxy also able to give consent for ECT patient has been passively consenting to ECT intermittently Mental Status Exam Mental Status Exam Patient Appearance: Fatigued, Disheveled, Unkempt and Bizarre Patient Orientation: Person Level of Consciousness: Awake, Drowsy and Inappropriate Patient Behavior: Talkative, Suspicious, Aggressive, Restless, Anxious, Resistive to Care, Distractible, Confused and Impulsive Mood Description: Labile and Angry Affect Description: Labile, Angry, Elated, Apprehensive and Expansive Patient Cognition Impaired: Yes Ability to Follow Directions: Fair Speech Pattern: Spontaneous Speech, Soft-Spoken, Cofabulation, Rapid, Excessive, Loud and Pressured Memory Description: Remote Impaired and Episodic Impaired Hallucinations: Auditory Delusions: Paranoid Ideation and Grandiose Perceptual Disturbances: Hallucinations Thought Process: Racing, Illogical, Distracted and Word Salad Thought Content: positive for Flight of Ideas, positive for Racing, positive for Loose Associations, positive for Disorganized, negative for Suicidal Ideation or negative for Homicidal Ideation Abnormal Motor Activity Signs and Symptoms: Agitation, Hyperactivity and Restlessness Judgement: Poor Diagnostics Vital Signs (24Hr): Vital Signs - 24 hr 08/23/21 02:05 08/23/21 02:20 08/23/21 02:35 Temperature Pulse Rate 88 101 H 86 Respiratory Rate 20 18 Blood Pressure 122/68 136/70 124/67 Pulse Oximetry 100 100 86 L 08/23/21 02:50 08/23/21 03:05 08/23/21 03:30 Temperature Pulse Rate 77 72 70 Respiratory Rate 18 Blood Pressure 116/74 118/80 115/79 Pulse Oximetry 100 97 08/23/21 06:00 08/23/21 16:07 08/23/21 19:24 Temperature 98 F Pulse Rate 78 75 Respiratory Rate 18 16 18 Blood Pressure 142/94 H 99/56 L Pulse Oximetry 98 98 BMI result Body Mass Index 28.5 Labs Results: 08/16/21 16:51 08/17/21 06:42 Medications Medications Current Medications Acetaminophen (Acetaminophen 325 Mg Tablet) 975 mg PO QID PRN PRN Reason: Mild Pain (Scale Score 1-4) Last Admin: 08/21/21 06:35 Dose: 975 mg Documented by: Al Hydroxide/Mg Hydroxide (Magnesium Hydrox/Alum Hydrox 30 Ml Oral.Susp) 30 ml PO Q6H PRN PRN Reason: Heartburn/Nausea Amlodipine Besylate (Amlodipine Besylate 10 Mg Tablet) 10 mg PO DAILY [facility]; Protocol Last Admin: 08/23/21 09:40 Dose: 10 mg Documented by: Aripiprazole (Aripiprazole 30 Mg Tablet) 30 mg PO DAILY [facility] Last Admin: 08/23/21 09:40 Dose: 30 mg Documented by: Aripiprazole (Aripiprazole Er 400 Mg Suser.Syr) 400 mg IM Q28D [facility] Last Admin: 08/20/21 14:09 Dose: 400 mg Documented by: Bisoprolol Fumarate (Bisoprolol Fumarate 5 Mg Tablet) 10 mg PO DAILY [facility] Last Admin: 08/23/21 09:40 Dose: 10 mg Documented by: Chlorpromazine HCl (Chlorpromazine Hcl 25 Mg Tablet) 50 mg PO Q4H PRN PRN Reason: Psychosis Last Admin: 08/23/21 20:32 Dose: 50 mg Documented by: Diazepam (Diazepam 5 Mg Tablet) 5 mg PO TID PRN PRN Reason: anxiety/restlessness Last Admin: 08/23/21 19:23 Dose: 5 mg Documented by: Diazepam (Diazepam 5 Mg Tablet) 5 mg PO BEDTIME [facility] Last Admin: 08/23/21 19:23 Dose: 5 mg Documented by: Divalproex Sodium (Divalproex Sodium Er 500 Mg Tab.Er.24h) 1,000 mg PO BID [facility] Last Admin: 08/23/21 19:23 Dose: 1,000 mg Documented by: Hydrochlorothiazide (Hydrochlorothiazide 12.5 Mg Tablet) 6.25 mg PO DAILY [facility] Last Admin: 08/23/21 09:41 Dose: 6.25 mg Documented by: Magnesium Hydroxide (Milk Of Magnesia 30 Ml Oral.Susp) 30 ml PO DAILY PRN PRN Reason: Constipation Multivitamins/Vitamin C (Multivitamin Tablet) 1 tab PO DAILY [facility] Last Admin: 08/23/21 09:40 Dose: 1 tab Documented by: Pharmacy Consult (Consult Rx Perform Med Rec) 1 each MISCELLANE ONCE PRN PRN Reason: Consult order Trazodone HCl (Trazodone Hcl 50 Mg Tablet) 50 mg PO BEDTIME PRN PRN Reason: Insomnia Last Admin: 08/23/21 20:32 Dose: 50 mg Documented by: Allergies Allergies Allergy/AdvReac Type Severity Reaction Status Date / Time haloperidol [From Haldol] Allergy Unknown Verified 07/22/20 03:38 Assessment & Plan Assessment & Plan (1) Bipolar affective disorder, mixed, severe, with psychotic behavior: Status: Acute Code(s): F31.64 - Bipolar disorder, current episode mixed, severe, with psychotic features (2) Dyskinesia, tardive: Status: Acute Code(s): G24.01 - Drug induced subacute dyskinesia Plan Healthcare proxy invoked patient now on the schedule for electroconvulsive therapy. Patient on Abilify for mood mg injectable Abilify p.o. for is seen added p.r.n. for for severe joleen agitation case extensively reviewed with staff repeatedly trying to avoid repeat restraint patient's vital signs have been stable I spent minutes with the patient and/or on the patient floor today, greater than?50% of which was spent counseling/coordinating care. Reason for contiued inpatient stay Substantial Risk for: harm to others, inability to function and rapid decompensation
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
[2021-08-24] VITALS (12 sets, daily range): BP systolic 101–121; BP diastolic 57–76; PULSE 65–98; RESP 15–18; TEMP 35.8–36.8; O2SAT 94–100
--- NOTE | 2021-08-24 00:03 | PC.NURSE ---
restraint renewal-phone conversation held with Dr. Abdi. will continue restraint process due to continued agitation and aggressive behavior. VS being monitored. hospitalist has not yet seen patient due to a code blue status in the hospital but is aware of need for assessment. continues on 2:1 staffing.
--- NOTE | 2021-08-24 01:15 | PC.NURSE ---
restraints released at 0030 after patient had fallen asleep. pt was awake at 0053 when assessed by hospitalist. psychomotor agitation continues but with less intensity at this time. speech is garbled. did allow for VS to be taken during entire time in restraints (see [facility] paperwork as well as initial VS just after restraint incident and just prior to discontinuation. patient has dismantled his bed, head and footboard, has pulled call luis buttons off of wall-exhibited these behaviors prior to restraint process but appeared to be a continuous behavior since admission.
[2021-08-24] MEDS: diazePAM 5 MG TABLET PO (01:42)
[2021-08-24] MEDS: traZODone HCL 50 MG TABLET PO (01:42)
--- NOTE | 2021-08-24 01:48 | PC.NURSE ---
PRN medication administered but displaying dangerous chocking hazard behavior as he put medicine cup in his mouth then ran around in circles until cup removed.
[2021-08-24] MEDS: chlorproMAZINE HCl 25 MG TABLET 50 MG PO (02:29)
--- NOTE | 2021-08-24 02:37 | PC.NURSE ---
hospital equipment-pt has broken medical bed by pulling it apart and replaced. when in mens room after washing hands ripped off paper towel dispenser with ease. garbled speech. difficult to follow in conversation.
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
--- NOTE | 2021-08-24 05:30 | PC.NURSE ---
hospitalist is delayed due to work load in ER
--- NOTE | 2021-08-24 05:59 | PC.NURSE ---
seen by hospitalist post restraint removal. during assessment patient jumped on chair and tore down ceiling tiles. placed back in 4 point restraint. will be given thorazine 100 mg IM as medication restraint per psychiatrist order. has used all po options.
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
--- NOTE | 2021-08-24 07:05 | PC.NURSE ---
0645 restraint renewal-although patient remains asleep 4 point renewal continued as patient continues with psychomotor agitation immediately upon release. this also allows for patient to obtain sleep has he has slept for only 10 minutes and that was the evening shift before. the psychiatrist is aware of assessment. VS continue to be monitored.
[2021-08-24 07:22] LABS: MANUAL DIFF FLAG NO
[2021-08-24 07:25] LABS: Basophils Percent Auto 0.2 % (0-2); Eosinophils Absolute Auto 0.2 X10*3/uL (0.0-0.4); Eosinophils Percent Auto 3.5 % (0-4); Hematocrit 35.1 % (42.0-52.0); Hemoglobin 12.2 g/dl (14.0-18.0); Imm Gran Abs Auto 0.02 X10*3/uL (0.00-0.03); Imm Gran Pct Auto 0.3 % (0.0-0.4); Lymphocytes Percent Auto 16.5 % (20-40); Mean Corpuscular HGB Conc 34.8 g/dl (31.0-36.0); Mean Corpuscular Hemoglobin 30.2 pg (27.0-33.0); Mean Corpuscular Volume 86.9 fL (80.0-98.0); Mean Platelet Volume 9.2 fL (9.4-12.4); Monocytes Absolute Auto 0.6 X10*3/uL (0.1-1.2); Monocytes Percent Auto 10.8 % (2-11); Neutrophils Absolute Auto 4.1 x10*3/uL (2.0-8.3); Neutrophils Percent Auto 68.7 % (45-73); Platelet Count 189 X10*3/uL (160-400); Red Blood Count 4.04 X10*6/uL (4.60-5.80); Red Cell Distribution Width 12.6 % (11.0-16.0); White Blood Count 5.9 X10*3/uL (4.8-10.8)
[2021-08-24 07:53] LABS: Valproate 103.1 mcg/mL (50.0-100.0)
[2021-08-24 08:01] LABS: Alanine Aminotransferase 47 U/L (0-40); Albumin Level 3.8 g/dL (3.5-5.0); Alkaline Phosphatase 45 U/L (39-117); Anion Gap 15 (12-20); Aspartate Amino Transferase 120 U/L (5-37); Bilirubin Total 0.7 mg/dL (0.0-1.0); Blood Urea Nitrogen 17 mg/dL (9-16); Calcium 9.1 mg/dL (8.4-10.2); Carbon Dioxide 24 mmol/L (22-29); Chloride 105 mmol/L (96-108); Creatinine Clr Calc Pharmacy 71.2; Estimated Glomerular Filt Rate 45; Glucose Fasting 90 mg/dL (60-99); Potassium 3.1 mmol/L (3.3-5.1); Sodium 141 mmol/L (135-145); Total Protein 6.2 g/dL (6.5-8.0)
[2021-08-24] MEDS: ARIPiprazole 30 MG TABLET PO (09:32)
[2021-08-24] MEDS: Bisoprolol Fumarate 5 MG TABLET 10 MG PO (09:32)
[2021-08-24] MEDS: Divalproex Sodium ER 500 MG TAB.ER.24H 1000 MG PO (09:32)
[2021-08-24] MEDS: hydroCHLOROthiazide 12.5 MG TABLET 6.25 MG PO (09:32)
[2021-08-24] MEDS: amLODIPine Besylate 10 MG TABLET PO (09:32)
[2021-08-24] MEDS: Multivitamin TABLET 1 TAB PO (09:32)
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
[2021-08-24] MEDS: chlorproMAZINE HCl 100 MG TABLET PO (11:42)
--- NOTE | 2021-08-24 12:12 | P.EN_ITS ---
Event Note Date of Service: 08/24/21 Event Note: Physician Assistant examined pt pt was sleeping; came out of restraints. Woke up disorganized, started escalating; got Thorazine 100mg PO, but escalation continued, disorganized behavior, climbing on chairs, cut finger on vent he was trying to remove. Required restraint for safety. Will see if needs additional medication for safety
--- NOTE | 2021-08-24 16:38 | HO.ANESPROP2 ---
[facility] Active Problems Active Problems: All Active Problems (Updated 08/20/21 @ 17:39 by Fredy Caldera DO) Physical exam (Acute) Bipolar affective disorder, mixed, severe, with psychotic behavior (Acute) Bipolar affective, manic, full remis (Acute) Hypertension (Acute) Hyperlipidemia (Acute) Dyskinesia, tardive (Acute) Manic behavior (Acute) Rash (Acute) Past Medical History Medical History HTN (hypertension) Kidney problem Family History Family history of problems with anesthesia: No Surgical History History of Problems with Anesthesia: No Social History Social History Household Members: Spouse Household Members Other:: Housing: House Do you presently have visiting nurse or other home services: No Unable to assess alcohol history related to: Unknown Patient Tobacco Use Status: Tobacco use Unknown Second Hand Smoke Exposure: No Use of substances other than those prescribed or required for medical reasons: Unknown Currently Displaying Signs/Symptoms of Drug Intoxication Withdrawal: No Any prior treatment program specific to substance use: No Advance Directives: No Advance Directives Information Provided: No Advance Directives on File: No Healthcare Proxy: Yes Guardian: No Do you have thoughts of harming others: None Do you have a plan to hurt others: No Plan Recently lost weight without trying: Unsure How much weight loss: Unsure service: No Sexual orientation: Straight/Heterosexual Meds Allergies Allergy/AdvReac Type Severity Reaction Status Date / Time haloperidol [From Haldol] Allergy Unknown Verified 07/22/20 03:38 Active Medications: Current Medications Acetaminophen (Acetaminophen 325 Mg Tablet) 975 mg PO QID PRN PRN Reason: Mild Pain (Scale Score 1-4) Last Admin: 08/21/21 06:35 Dose: 975 mg Documented by: Al Hydroxide/Mg Hydroxide (Magnesium Hydrox/Alum Hydrox 30 Ml Oral.Susp) 30 ml PO Q6H PRN PRN Reason: Heartburn/Nausea Amlodipine Besylate (Amlodipine Besylate 10 Mg Tablet) 10 mg PO DAILY [facility]; Protocol Last Admin: 08/24/21 09:32 Dose: 10 mg Documented by: Aripiprazole (Aripiprazole 30 Mg Tablet) 30 mg PO DAILY [facility] Last Admin: 08/24/21 09:32 Dose: 30 mg Documented by: Aripiprazole (Aripiprazole Er 400 Mg Suser.Syr) 400 mg IM Q28D [facility] Last Admin: 08/20/21 14:09 Dose: 400 mg Documented by: Bisoprolol Fumarate (Bisoprolol Fumarate 5 Mg Tablet) 10 mg PO DAILY [facility] Last Admin: 08/24/21 09:32 Dose: 10 mg Documented by: Chlorpromazine HCl (Chlorpromazine Hcl 100 Mg Tablet) 100 mg PO Q1H PRN PRN Reason: Psychosis Last Admin: 08/24/21 11:42 Dose: 100 mg Documented by: Diazepam (Diazepam 5 Mg Tablet) 5 mg PO TID PRN PRN Reason: anxiety/restlessness Last Admin: 08/24/21 01:42 Dose: 5 mg Documented by: Diazepam (Diazepam 5 Mg Tablet) 5 mg PO BEDTIME [facility] Last Admin: 08/23/21 19:23 Dose: 5 mg Documented by: Divalproex Sodium (Divalproex Sodium Er 500 Mg Tab.Er.24h) 1,000 mg PO BID [facility] Last Admin: 08/24/21 09:32 Dose: 1,000 mg Documented by: Hydrochlorothiazide (Hydrochlorothiazide 12.5 Mg Tablet) 6.25 mg PO DAILY [facility] Last Admin: 08/24/21 09:32 Dose: 6.25 mg Documented by: Magnesium Hydroxide (Milk Of Magnesia 30 Ml Oral.Susp) 30 ml PO DAILY PRN PRN Reason: Constipation Multivitamins/Vitamin C (Multivitamin Tablet) 1 tab PO DAILY [facility] Last Admin: 08/24/21 09:32 Dose: 1 tab Documented by: Pharmacy Consult (Consult Rx Perform Med Rec) 1 each MISCELLANE ONCE PRN PRN Reason: Consult order Trazodone HCl (Trazodone Hcl 50 Mg Tablet) 50 mg PO BEDTIME PRN PRN Reason: Insomnia Last Admin: 08/24/21 01:42 Dose: 50 mg Documented by: Home Medications Medication Instructions Recorded Confirmed Last Taken Type acetaminophen 500 mg tablet 1,000 mg PO QID PRN 08/16/21 08/16/21 Unknown History (Tylenol Extra Strength) amlodipine 10 mg tablet 1 tab PO DAILY 08/16/21 08/16/21 Unknown History aripiprazole 400 mg intramuscular 400 mg IM QMONTH 08/16/21 08/16/21 Unknown History suspension,extended release (Abilify Maintena) bisoprolol 10 1 tab PO DAILY 08/16/21 08/16/21 Unknown History mg-hydrochlorothiazide 6.25 mg tablet multivitamin 1 tab PO DAILY 08/16/21 08/16/21 Unknown History vitamin B complex 1 tab PO DAILY 08/16/21 08/16/21 Unknown History Exam Exam Date and Time: August 24, 2021 1638 Height,Weight and Vital Signs: Height 6 ft 2 in Weight 101 kg Last Vital Signs Temp 98.2 F 08/24/21 06:15 Pulse 71 08/24/21 06:15 Resp 16 08/24/21 06:15 BP 121/71 08/24/21 06:15 Pulse Ox 98 08/24/21 06:15 Pertinent Lab Results Pertinent Lab Results: Laboratory Tests 08/16/21 08/16/21 08/16/21 16:05 16:42 16:42 WBC RBC Hgb Hct MCV MCH MCHC RDW Plt Count MPV Immature Gran % (Auto) Neut % (Auto) Lymph % (Auto) [place]ett % (Auto) Eos % (Auto) Baso % (Auto) Lymph # (Auto) [place] # (Auto) Eos # (Auto) Baso # (Auto) Abs Immat Gran (auto) Absolute Neuts (auto) Absolute Nucleated RBC Nucleated RBC % (auto) Sodium Potassium Chloride Carbon Dioxide Anion Gap BUN Creatinine Estim Creat Clear Calc Estimated GFR Random Glucose Fasting Glucose Estimat Average Glucose Hemoglobin A1c % Calcium Total Bilirubin AST ALT Alkaline Phosphatase Total Protein Albumin Triglycerides Cholesterol LDL Cholesterol, Calc HDL Cholesterol Vitamin B12 Folate TSH Urine Color YELLOW Urine Appearance CLEAR Urine pH 6.0 Ur Specific Thrall 1.010 Urine Protein 2+ H Urine Glucose (UA) NEG Urine Ketones NEG Urine Blood 2+ H Urine Nitrite NEG Ur Leukocyte Esterase NEG Urine RBC 5-9 H Urine WBC 0 Ur Squamous Epith Cells NONE Urine Bacteria NONE Urine Opiates Screen Not Detected Urine Fentanyl Screen Not Detected Ur Barbiturates Screen Not Detected Valproic Acid Ur Phencyclidine Scrn Not Detected Ur Amphetamines Screen Not Detected U Benzodiazepines Scrn Not Detected Urine Cocaine Screen Not Detected U Marijuana (THC) Screen Not Detected Ethyl Alcohol COVID-19 (URI) Negative COVID-19 Clin Com See Note 08/16/21 08/16/21 08/16/21 16:51 16:51 16:51 WBC 7.8 RBC 4.83 Hgb 14.8 Hct 42.1 MCV 87.2 MCH 30.6 MCHC 35.2 RDW 12.7 Plt Count 226 MPV 9.3 L Immature Gran % (Auto) 0.4 Neut % (Auto) 72.1 Lymph % (Auto) 15.1 L [place] % (Auto) 8.5 Eos % (Auto) 3.5 Baso % (Auto) 0.4 Lymph # (Auto) 1.2 [place]ett # (Auto) 0.7 Eos # (Auto) 0.3 Baso # (Auto) 0.0 Abs Immat Gran (auto) 0.03 Absolute Neuts (auto) 5.6 Absolute Nucleated RBC 0.000 Nucleated RBC % (auto) 0.0 Sodium 138 Potassium 3.9 Chloride 102 Carbon Dioxide 24 Anion Gap 16 BUN 16 Creatinine 1.49 H Estim Creat Clear Calc 80.2 Estimated GFR 51 Random Glucose 117 H Fasting Glucose Estimat Average Glucose Hemoglobin A1c % Calcium 10.1 D Total Bilirubin 0.7 AST 47 H D ALT 63 H Alkaline Phosphatase 56 Total Protein 8.2 H D Albumin 4.9 D Triglycerides Cholesterol LDL Cholesterol, Calc HDL Cholesterol Vitamin B12 Folate TSH Urine Color Urine Appearance Urine pH Ur Specific Thrall Urine Protein Urine Glucose (UA) Urine Ketones Urine Blood Urine Nitrite Ur Leukocyte Esterase Urine RBC Urine WBC Ur Squamous Epith Cells Urine Bacteria Urine Opiates Screen Urine Fentanyl Screen Ur Barbiturates Screen Valproic Acid Ur Phencyclidine Scrn Ur Amphetamines Screen U Benzodiazepines Scrn Urine Cocaine Screen U Marijuana (THC) Screen Ethyl Alcohol < 10 COVID-19 (URI) COVID-19 Clin Com 08/17/21 08/17/21 08/17/21 06:42 06:42 06:42 WBC RBC Hgb Hct MCV MCH MCHC RDW Plt Count MPV Immature Gran % (Auto) Neut % (Auto) Lymph % (Auto) [place] % (Auto) Eos % (Auto) Baso % (Auto) Lymph # (Auto) [place] # (Auto) Eos # (Auto) Baso # (Auto) Abs Immat Gran (auto) Absolute Neuts (auto) Absolute Nucleated RBC Nucleated RBC % (auto) Sodium 138 Potassium 3.9 Chloride 102 Carbon Dioxide 24 Anion Gap 16 BUN 12 Creatinine 1.47 H Estim Creat Clear Calc 81.3 Estimated GFR 52 Random Glucose Fasting Glucose 112 H Estimat Average Glucose 97 Hemoglobin A1c % 5.0 Calcium 10.2 Total Bilirubin 1.2 H AST 48 H ALT 65 H Alkaline Phosphatase 56 Total Protein 8.5 H Albumin 4.9 Triglycerides 133 Cholesterol 226 D LDL Cholesterol, Calc 152 HDL Cholesterol 48 D Vitamin B12 558 Folate > 20.0 TSH 1.87 Urine Color Urine Appearance Urine pH Ur Specific Thrall Urine Protein Urine Glucose (UA) Urine Ketones Urine Blood Urine Nitrite Ur Leukocyte Esterase Urine RBC Urine WBC Ur Squamous Epith Cells Urine Bacteria Urine Opiates Screen Urine Fentanyl Screen Ur Barbiturates Screen Valproic Acid Ur Phencyclidine Scrn Ur Amphetamines Screen U Benzodiazepines Scrn Urine Cocaine Screen U Marijuana (THC) Screen Ethyl Alcohol COVID-19 (URI) COVID-19 Clin Com 08/24/21 08/24/21 07:19 07:19 WBC 5.9 RBC 4.04 L Hgb 12.2 L Hct 35.1 L MCV 86.9 MCH 30.2 MCHC 34.8 RDW 12.6 Plt Count 189 MPV 9.2 L Immature Gran % (Auto) 0.3 Neut % (Auto) 68.7 Lymph % (Auto) 16.5 L [place] % (Auto) 10.8 Eos % (Auto) 3.5 Baso % (Auto) 0.2 Lymph # (Auto) 1.0 L [place] # (Auto) 0.6 Eos # (Auto) 0.2 Baso # (Auto) 0.0 Abs Immat Gran (auto) 0.02 Absolute Neuts (auto) 4.1 Absolute Nucleated RBC 0.000 Nucleated RBC % (auto) 0.0 Sodium 141 Potassium 3.1 L D Chloride 105 Carbon Dioxide 24 Anion Gap 15 BUN 17 H Creatinine 1.68 H Estim Creat Clear Calc 71.2 Estimated GFR 45 Random Glucose Fasting Glucose 90 Estimat Average Glucose Hemoglobin A1c % Calcium 9.1 D Total Bilirubin 0.7 AST 120 H ALT 47 H Alkaline Phosphatase 45 Total Protein 6.2 L D Albumin 3.8 D Triglycerides Cholesterol LDL Cholesterol, Calc HDL Cholesterol Vitamin B12 Folate TSH Urine Color Urine Appearance Urine pH Ur Specific Thrall Urine Protein Urine Glucose (UA) Urine Ketones Urine Blood Urine Nitrite Ur Leukocyte Esterase Urine RBC Urine WBC Ur Squamous Epith Cells Urine Bacteria Urine Opiates Screen Urine Fentanyl Screen Ur Barbiturates Screen Valproic Acid 103.1 H Ur Phencyclidine Scrn Ur Amphetamines Screen U Benzodiazepines Scrn Urine Cocaine Screen U Marijuana (THC) Screen Ethyl Alcohol COVID-19 (URI) COVID-19 Clin Com Airway Mallampati Class: II TM Dist: >3cm Neck ROM: Full Heart: rrr Lungs: cta Assessment and Plan Assessment Anesthesia Assessment: Anesthesia Plan Discussed and Chart Reviewed Final Anesthetic Review Family History of Problems with Anesthesia: No History of Problems with Anesthesia: No NPO: Yes ASA Class: IV and Emergency Final Preanesthetic Review: No Changes in Pt Med Stat, Meds/Allgs Chart Reviewed and Anes Risks/Benef Reviewed Patient Risk: Intermediate Procedure Risk: Intermediate Anesthetic Plan Anesthetic Plan: GA Disposition: Standard PACU
--- NOTE | 2021-08-24 17:17 | PC.NURSE ---
At approximately 1500 I spoke to patients Monica Fernandez and told her we were planning ECT at 5:45 and she needed to be available to consent to anesthesia at about 5:45pm. She told me that Dr. Abdi had been in touch with her all day about the multiple restraints that the patient has had. She asked that I speak to her dad who was with her to give him the same information. We are heading down to ECT on a stretcher at 5:25pm
--- NOTE | 2021-08-24 17:50 | MHC.SHP ---
Pre-Procedural Eval Section A Date of Service: 08/24/21 The patient is an INPATIENT: Yes Changes since office visit: Yes Changes in Medication; No Cold of Flu in the past 2 weeks, No New Medical Problems and No Patient answered all questions The History & Physical has been completed within 30 days and I have reviewed it.: Yes Section B Chief Complaint: joleen Allergies: Allergies Allergy/AdvReac Type Severity Reaction Status Date / Time haloperidol [From Haldol] Allergy Unknown Verified 07/22/20 03:38 Plan I have reviewed the history and physical and performed a pertinent physical examination on my patient. No changes have occurred unless specified.
--- NOTE | 2021-08-24 17:52 | HO.ECTPROC ---
ECT Procedure Note Diagnosis/Treatment Date of Service: 08/24/21 Diagnosis: Bipolar disorder Previous ECT Date: 08/27/20 Current Treatment Number: 1 Treatment: Series Interval Clinical Notes: pt with severe manic psychosis only resonded to ect last yr pt asking for ect informed consent obtained from pt has been in restraints urgent ect set up ECT Settings Device: THYMATRON DGx Electrode Placement: Bitemporal Program/Pulse Width: 0.50 Energy Percent: 100 Seizure Duration By EEG (in seconds): 24 Medications Administration General Anesthetic: Etomidate (14) Muscle Relaxant: Succinylcholine (100) Ancillary Medications Analgesics: Torodol - Pre ECT Anti-emetics: Zofran - Pre ECT Airway Management Airway Management: Bag Mask Ventilation Treatment Recommendations No Changes Recommended: No change Electrode Placement: Bitemporal Energy Percent: 100 Notes: will hold depakote nite prior to ect dec dose Pt Tolerated Procedure w/o Issue: Yes
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
[2021-08-25] MEDS: diazePAM 5 MG TABLET PO (00:48)
[2021-08-25] MEDS: traZODone HCL 50 MG TABLET PO (00:48)
--- NOTE | 2021-08-25 04:40 | PC.NURSE ---
on 08/24/21 patient returned in restraints s/p ECT. I assumed care after report had been given. VS maintained q 15 minutes until patient fell asleep and was released from restraints at 2100. patient had taken in fluids but did not eat HS meal. patient only slept briefly, for approximately 1 1/2 hours. on awakening continued delusional, difficult to understand but made no movement to get OOB. impulsive yelling out, makes odd noises. continues on 2:1 status for safety. Evening medications were given late and patient spit out depakote. last depakote level was 103.1
[2021-08-25] MEDS: Divalproex Sodium ER 500 MG TAB.ER.24H 1000 MG PO (08:49)
[2021-08-25] MEDS: chlorproMAZINE HCl 100 MG TABLET PO ×2 (08:50→13:49)
[2021-08-25 09:15] VITALS: BP 171/74; PULSE 76; RESP 18; TEMP 35.8; O2SAT 97
[2021-08-25] MEDS: diazePAM 10 MG/2 ML CARTRIDGE 5 MG IM (10:12)
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
[2021-08-25 17:23] LABS: MANUAL DIFF FLAG NO
[2021-08-25 17:28] LABS: Basophils Percent Auto 0.4 % (0-2); Eosinophils Absolute Auto 0.4 X10*3/uL (0.0-0.4); Eosinophils Percent Auto 6.6 % (0-4); Hematocrit 34.4 % (42.0-52.0); Hemoglobin 11.9 g/dl (14.0-18.0); Imm Gran Abs Auto 0.03 X10*3/uL (0.00-0.03); Imm Gran Pct Auto 0.5 % (0.0-0.4); Lymphocytes Absolute Auto 1.1 X10*3/uL (1.2-4.9); Lymphocytes Percent Auto 18.9 % (20-40); Mean Corpuscular HGB Conc 34.6 g/dl (31.0-36.0); Mean Corpuscular Hemoglobin 30.5 pg (27.0-33.0); Mean Corpuscular Volume 88.2 fL (80.0-98.0); Mean Platelet Volume 9.1 fL (9.4-12.4); Monocytes Absolute Auto 0.6 X10*3/uL (0.1-1.2); Monocytes Percent Auto 10.9 % (2-11); Neutrophils Absolute Auto 3.5 x10*3/uL (2.0-8.3); Neutrophils Percent Auto 62.7 % (45-73); Platelet Count 183 X10*3/uL (160-400); Red Cell Distribution Width 12.9 % (11.0-16.0); White Blood Count 5.6 X10*3/uL (4.8-10.8)
[2021-08-25 17:50] LABS: Alanine Aminotransferase 56 U/L (0-40); Albumin Level 3.5 g/dL (3.5-5.0); Alkaline Phosphatase 43 U/L (39-117); Anion Gap 15 (12-20); Aspartate Amino Transferase 119 U/L (5-37); Bilirubin Direct 0.2 mg/dL (0.0-0.5); Bilirubin Total 0.5 mg/dL (0.0-1.0); Blood Urea Nitrogen 13 mg/dL (9-16); Carbon Dioxide 27 mmol/L (22-29); Chloride 102 mmol/L (96-108); Creatinine Clr Calc Pharmacy 82.5; Estimated Glomerular Filt Rate 53; Lactate Dehydrogenase 472 U/L (118-273); Sodium 141 mmol/L (135-145); Total Protein 5.8 g/dL (6.5-8.0)
--- NOTE | 2021-08-25 20:43 | PC.NURSE ---
Nursing Feeder Operator Automatic Robel Molina placed a 20 gauge catheter in left a.c. in preparation for IV Lactacted Ringers. Placement was done at 1845.
[2021-08-25] MEDS: Lactated Ringers 1,000 ML 999 ML IVCONT (22:47)
[2021-08-26] VITALS (11 sets, daily range): BP systolic 100–141; BP diastolic 60–92; PULSE 95–112; RESP 14–20; TEMP 36.9–38.3; O2SAT 93–99
[2021-08-26] MEDS: Lactated Ringers 1,000 ML 999 ML IVCONT (00:48)
[2021-08-26] MEDS: diazePAM 5 MG TABLET PO (01:49)
[2021-08-26] MEDS: chlorproMAZINE HCl 100 MG TABLET PO ×2 (01:49→11:27)
[2021-08-26] MEDS: Potassium Chloride/H20 10 MEQ/100 ML PIGGYBACK 100 MEQ IV ×3 (02:41→05:54)
[2021-08-26 07:58] LABS: MANUAL DIFF FLAG NO
[2021-08-26 08:06] LABS: Basophils Percent Auto 0.1 % (0-2); Eosinophils Absolute Auto 0.2 X10*3/uL (0.0-0.4); Eosinophils Percent Auto 3.2 % (0-4); Hematocrit 38.5 % (42.0-52.0); Hemoglobin 13.5 g/dl (14.0-18.0); Imm Gran Abs Auto 0.03 X10*3/uL (0.00-0.03); Imm Gran Pct Auto 0.4 % (0.0-0.4); Lymphocytes Absolute Auto 0.3 X10*3/uL (1.2-4.9); Lymphocytes Percent Auto 3.9 % (20-40); Mean Corpuscular HGB Conc 35.1 g/dl (31.0-36.0); Mean Corpuscular Volume 88.5 fL (80.0-98.0); Mean Platelet Volume 9.4 fL (9.4-12.4); Monocytes Absolute Auto 0.4 X10*3/uL (0.1-1.2); Monocytes Percent Auto 5.6 % (2-11); Neutrophils Percent Auto 86.8 % (45-73); Platelet Count 200 X10*3/uL (160-400); Red Blood Count 4.35 X10*6/uL (4.60-5.80); Red Cell Distribution Width 12.9 % (11.0-16.0)
[2021-08-26 08:28] LABS: Anion Gap 17 (12-20); Blood Urea Nitrogen 11 mg/dL (9-16); Calcium 9.1 mg/dL (8.4-10.2); Carbon Dioxide 26 mmol/L (22-29); Chloride 105 mmol/L (96-108); Creatinine Clr Calc Pharmacy 94.9; Estimated Glomerular Filt Rate > 60; Glucose Random 93 mg/dL (60-115); Potassium 3.9 mmol/L (3.3-5.1); Sodium 144 mmol/L (135-145)
[2021-08-26] MEDS: diazePAM 5 MG TABLET 10 MG PO ×2 (11:29→21:23)
--- NOTE | 2021-08-26 12:58 | HO.ANESPROP2 ---
HPI - Anesthesia Eval Consult details Narrative: 46yo male patient for ECT PMFSH Active Problems Active Problems: All Active Problems (Updated 08/20/21 @ 17:39 by Fredy Caldera DO) Physical exam (Acute) Bipolar affective disorder, mixed, severe, with psychotic behavior (Acute) Bipolar affective, manic, full remis (Acute) Hypertension (Acute) Hyperlipidemia (Acute) Dyskinesia, tardive (Acute) Manic behavior (Acute) Rash (Acute) Past Medical History Medical History HTN (hypertension) Kidney problem Family History Family history of problems with anesthesia: No Surgical History History of Problems with Anesthesia: No Social History Social History Household Members: Spouse Household Members Other:: Housing: House Do you presently have visiting nurse or other home services: No Unable to assess alcohol history related to: Unknown Patient Tobacco Use Status: Tobacco use Unknown Second Hand Smoke Exposure: No Use of substances other than those prescribed or required for medical reasons: Unknown Currently Displaying Signs/Symptoms of Drug Intoxication Withdrawal: No Any prior treatment program specific to substance use: No Advance Directives: No Advance Directives Information Provided: No Advance Directives on File: No Healthcare Proxy: Yes Guardian: No Do you have thoughts of harming others: None Do you have a plan to hurt others: No Plan Recently lost weight without trying: Unsure How much weight loss: Unsure service: No Sexual orientation: Straight/Heterosexual Meds Allergies Allergy/AdvReac Type Severity Reaction Status Date / Time haloperidol [From Haldol] Allergy Unknown Verified 07/22/20 03:38 Active Medications: Current Medications Acetaminophen (Acetaminophen 325 Mg Tablet) 975 mg PO QID PRN PRN Reason: Mild Pain (Scale Score 1-4) Last Admin: 08/21/21 06:35 Dose: 975 mg Documented by: Al Hydroxide/Mg Hydroxide (Magnesium Hydrox/Alum Hydrox 30 Ml Oral.Susp) 30 ml PO Q6H PRN PRN Reason: Heartburn/Nausea Amlodipine Besylate (Amlodipine Besylate 10 Mg Tablet) 10 mg PO DAILY [facility]; Protocol Last Admin: 08/26/21 12:22 Dose: Not Given Documented by: Aripiprazole (Aripiprazole 30 Mg Tablet) 30 mg PO DAILY [facility] Last Admin: 08/26/21 12:21 Dose: Not Given Documented by: Aripiprazole (Aripiprazole Er 400 Mg Suser.Syr) 400 mg IM Q28D [facility] Last Admin: 08/20/21 14:09 Dose: 400 mg Documented by: Bisoprolol Fumarate (Bisoprolol Fumarate 5 Mg Tablet) 10 mg PO DAILY [facility] Last Admin: 08/26/21 12:21 Dose: Not Given Documented by: Chlorpromazine HCl (Chlorpromazine Hcl 100 Mg Tablet) 100 mg PO Q1H PRN PRN Reason: Psychosis Last Admin: 08/26/21 11:27 Dose: 100 mg Documented by: Diazepam (Diazepam 5 Mg Tablet) 5 mg PO TID PRN PRN Reason: anxiety/restlessness Last Admin: 08/24/21 01:42 Dose: 5 mg Documented by: Diazepam (Diazepam 5 Mg Tablet) 10 mg PO BEDTIME [facility] Hydrochlorothiazide (Hydrochlorothiazide 12.5 Mg Tablet) 6.25 mg PO DAILY [facility] Last Admin: 08/26/21 12:23 Dose: Not Given Documented by: Lactated Ringer's (Lr) 1,000 mls @ 100 mls/hr IVCONT .Q10H [facility] Magnesium Hydroxide (Milk Of Magnesia 30 Ml Oral.Susp) 30 ml PO DAILY PRN PRN Reason: Constipation Multivitamins/Vitamin C (Multivitamin Tablet) 1 tab PO DAILY [facility] Last Admin: 08/26/21 12:22 Dose: Not Given Documented by: Pharmacy Consult (Consult Rx Perform Med Rec) 1 each MISCELLANE ONCE PRN PRN Reason: Consult order Trazodone HCl (Trazodone Hcl 50 Mg Tablet) 50 mg PO BEDTIME PRN PRN Reason: Insomnia Last Admin: 08/25/21 00:48 Dose: 50 mg Documented by: Home Medications Medication Instructions Recorded Confirmed Last Taken Type acetaminophen 500 mg tablet 1,000 mg PO QID PRN 08/16/21 08/16/21 Unknown History (Tylenol Extra Strength) amlodipine 10 mg tablet 1 tab PO DAILY 08/16/21 08/16/21 Unknown History aripiprazole 400 mg intramuscular 400 mg IM QMONTH 08/16/21 08/16/21 Unknown History suspension,extended release (Abilify Maintena) bisoprolol 10 1 tab PO DAILY 08/16/21 08/16/21 Unknown History mg-hydrochlorothiazide 6.25 mg tablet multivitamin 1 tab PO DAILY 08/16/21 08/16/21 Unknown History vitamin B complex 1 tab PO DAILY 08/16/21 08/16/21 Unknown History Exam Exam Date and Time: August 26, 2021 1258 Height,Weight and Vital Signs: Height 6 ft 2 in Weight 101 kg Last Vital Signs Temp 99.5 F 08/26/21 12:53 Pulse 112 H 08/26/21 12:53 Resp 20 08/26/21 12:53 BP 125/74 08/26/21 12:53 Pulse Ox 99 08/26/21 12:53 Pertinent Lab Results Pertinent Lab Results: Laboratory Tests 08/16/21 08/16/21 08/16/21 16:05 16:42 16:42 WBC RBC Hgb Hct MCV MCH MCHC RDW Plt Count MPV Immature Gran % (Auto) Neut % (Auto) Lymph % (Auto) [place] % (Auto) Eos % (Auto) Baso % (Auto) Lymph # (Auto) [place] # (Auto) Eos # (Auto) Baso # (Auto) Abs Immat Gran (auto) Absolute Neuts (auto) Absolute Nucleated RBC Nucleated RBC % (auto) Sodium Potassium Chloride Carbon Dioxide Anion Gap BUN Creatinine Estim Creat Clear Calc Estimated GFR Random Glucose Fasting Glucose Estimat Average Glucose Hemoglobin A1c % Calcium Magnesium Total Bilirubin Direct Bilirubin AST ALT Alkaline Phosphatase Lactate Dehydrogenase Total Creatine Kinase Total Protein Albumin Triglycerides Cholesterol LDL Cholesterol, Calc HDL Cholesterol Vitamin B12 Folate TSH Urine Color YELLOW Urine Appearance CLEAR Urine pH 6.0 Ur Specific [place] 1.010 Urine Protein 2+ H Urine Glucose (UA) NEG Urine Ketones NEG Urine Blood 2+ H Urine Nitrite NEG Ur Leukocyte Esterase NEG Urine RBC 5-9 H Urine WBC 0 Ur Squamous Epith Cells NONE Urine Bacteria NONE Urine Opiates Screen Not Detected Urine Fentanyl Screen Not Detected Ur Barbiturates Screen Not Detected Valproic Acid Ur Phencyclidine Scrn Not Detected Ur Amphetamines Screen Not Detected U Benzodiazepines Scrn Not Detected Urine Cocaine Screen Not Detected U Marijuana (THC) Screen Not Detected Ethyl Alcohol COVID-19 (URI) Negative COVID-19 Clin Com See Note 08/16/21 08/16/21 08/16/21 16:51 16:51 16:51 WBC 7.8 RBC 4.83 Hgb 14.8 Hct 42.1 MCV 87.2 MCH 30.6 MCHC 35.2 RDW 12.7 Plt Count 226 MPV 9.3 L Immature Gran % (Auto) 0.4 Neut % (Auto) 72.1 Lymph % (Auto) 15.1 L [place] % (Auto) 8.5 Eos % (Auto) 3.5 Baso % (Auto) 0.4 Lymph # (Auto) 1.2 [place] # (Auto) 0.7 Eos # (Auto) 0.3 Baso # (Auto) 0.0 Abs Immat Gran (auto) 0.03 Absolute Neuts (auto) 5.6 Absolute Nucleated RBC 0.000 Nucleated RBC % (auto) 0.0 Sodium 138 Potassium 3.9 Chloride 102 Carbon Dioxide 24 Anion Gap 16 BUN 16 Creatinine 1.49 H Estim Creat Clear Calc 80.2 Estimated GFR 51 Random Glucose 117 H Fasting Glucose Estimat Average Glucose Hemoglobin A1c % Calcium 10.1 D Magnesium Total Bilirubin 0.7 Direct Bilirubin AST 47 H D ALT 63 H Alkaline Phosphatase 56 Lactate Dehydrogenase Total Creatine Kinase Total Protein 8.2 H D Albumin 4.9 D Triglycerides Cholesterol LDL Cholesterol, Calc HDL Cholesterol Vitamin B12 Folate TSH Urine Color Urine Appearance Urine pH Ur Specific [place] Urine Protein Urine Glucose (UA) Urine Ketones Urine Blood Urine Nitrite Ur Leukocyte Esterase Urine RBC Urine WBC Ur Squamous Epith Cells Urine Bacteria Urine Opiates Screen Urine Fentanyl Screen Ur Barbiturates Screen Valproic Acid Ur Phencyclidine Scrn Ur Amphetamines Screen U Benzodiazepines Scrn Urine Cocaine Screen U Marijuana (THC) Screen Ethyl Alcohol < 10 COVID-19 (URI) COVID-19 Clin Com 08/17/21 08/17/21 08/17/21 06:42 06:42 06:42 WBC RBC Hgb Hct MCV MCH MCHC RDW Plt Count MPV Immature Gran % (Auto) Neut % (Auto) Lymph % (Auto) [place] % (Auto) Eos % (Auto) Baso % (Auto) Lymph # (Auto) [place] # (Auto) Eos # (Auto) Baso # (Auto) Abs Immat Gran (auto) Absolute Neuts (auto) Absolute Nucleated RBC Nucleated RBC % (auto) Sodium 138 Potassium 3.9 Chloride 102 Carbon Dioxide 24 Anion Gap 16 BUN 12 Creatinine 1.47 H Estim Creat Clear Calc 81.3 Estimated GFR 52 Random Glucose Fasting Glucose 112 H Estimat Average Glucose 97 Hemoglobin A1c % 5.0 Calcium 10.2 Magnesium Total Bilirubin 1.2 H Direct Bilirubin AST 48 H ALT 65 H Alkaline Phosphatase 56 Lactate Dehydrogenase Total Creatine Kinase Total Protein 8.5 H Albumin 4.9 Triglycerides 133 Cholesterol 226 D LDL Cholesterol, Calc 152 HDL Cholesterol 48 D Vitamin B12 558 Folate > 20.0 TSH 1.87 Urine Color Urine Appearance Urine pH Ur Specific [place] Urine Protein Urine Glucose (UA) Urine Ketones Urine Blood Urine Nitrite Ur Leukocyte Esterase Urine RBC Urine WBC Ur Squamous Epith Cells Urine Bacteria Urine Opiates Screen Urine Fentanyl Screen Ur Barbiturates Screen Valproic Acid Ur Phencyclidine Scrn Ur Amphetamines Screen U Benzodiazepines Scrn Urine Cocaine Screen U Marijuana (THC) Screen Ethyl Alcohol COVID-19 (URI) COVID-19 Clin Com 08/24/21 08/24/21 08/25/21 07:19 07:19 17:19 WBC 5.9 RBC 4.04 L Hgb 12.2 L Hct 35.1 L MCV 86.9 MCH 30.2 MCHC 34.8 RDW 12.6 Plt Count 189 MPV 9.2 L Immature Gran % (Auto) 0.3 Neut % (Auto) 68.7 Lymph % (Auto) 16.5 L [place] % (Auto) 10.8 Eos % (Auto) 3.5 Baso % (Auto) 0.2 Lymph # (Auto) 1.0 L [place] # (Auto) 0.6 Eos # (Auto) 0.2 Baso # (Auto) 0.0 Abs Immat Gran (auto) 0.02 Absolute Neuts (auto) 4.1 Absolute Nucleated RBC 0.000 Nucleated RBC % (auto) 0.0 Sodium 141 141 Potassium 3.1 L D 3.0 L Chloride 105 102 Carbon Dioxide 24 27 Anion Gap 15 15 BUN 17 H 13 Creatinine 1.68 H 1.45 H Estim Creat Clear Calc 71.2 82.5 Estimated GFR 45 53 Random Glucose Fasting Glucose 90 Estimat Average Glucose Hemoglobin A1c % Calcium 9.1 D Magnesium Total Bilirubin 0.7 0.5 Direct Bilirubin 0.2 AST 120 H 119 H ALT 47 H 56 H Alkaline Phosphatase 45 43 Lactate Dehydrogenase 472 H Total Creatine Kinase 6578 H Total Protein 6.2 L D 5.8 L Albumin 3.8 D 3.5 Triglycerides Cholesterol LDL Cholesterol, Calc HDL Cholesterol Vitamin B12 Folate TSH Urine Color Urine Appearance Urine pH Ur Specific [place] Urine Protein Urine Glucose (UA) Urine Ketones Urine Blood Urine Nitrite Ur Leukocyte Esterase Urine RBC Urine WBC Ur Squamous Epith Cells Urine Bacteria Urine Opiates Screen Urine Fentanyl Screen Ur Barbiturates Screen Valproic Acid 103.1 H Ur Phencyclidine Scrn Ur Amphetamines Screen U Benzodiazepines Scrn Urine Cocaine Screen U Marijuana (THC) Screen Ethyl Alcohol COVID-19 (URI) COVID-19 Clin Com 08/25/21 08/26/21 08/26/21 17:19 07:53 07:53 WBC 5.6 RBC 3.90 L Hgb 11.9 L Hct 34.4 L MCV 88.2 MCH 30.5 MCHC 34.6 RDW 12.9 Plt Count 183 MPV 9.1 L Immature Gran % (Auto) 0.5 H Neut % (Auto) 62.7 Lymph % (Auto) 18.9 L [place] % (Auto) 10.9 Eos % (Auto) 6.6 H Baso % (Auto) 0.4 Lymph # (Auto) 1.1 L [place] # (Auto) 0.6 Eos # (Auto) 0.4 Baso # (Auto) 0.0 Abs Immat Gran (auto) 0.03 Absolute Neuts (auto) 3.5 Absolute Nucleated RBC 0.000 Nucleated RBC % (auto) 0.0 Sodium 144 Cancelled Potassium 3.9 D Cancelled Chloride 105 Cancelled Carbon Dioxide 26 Cancelled Anion Gap 17 Cancelled BUN 11 Creatinine 1.26 Estim Creat Clear Calc 94.9 Estimated GFR > 60 Random Glucose 93 Fasting Glucose Estimat Average Glucose Hemoglobin A1c % Calcium 9.1 Magnesium Cancelled Total Bilirubin Direct Bilirubin AST ALT Alkaline Phosphatase Lactate Dehydrogenase Total Creatine Kinase 5470 H Total Protein Albumin Triglycerides Cholesterol LDL Cholesterol, Calc HDL Cholesterol Vitamin B12 Folate TSH Urine Color Urine Appearance Urine pH Ur Specific [place] Urine Protein Urine Glucose (UA) Urine Ketones Urine Blood Urine Nitrite Ur Leukocyte Esterase Urine RBC Urine WBC Ur Squamous Epith Cells Urine Bacteria Urine Opiates Screen Urine Fentanyl Screen Ur Barbiturates Screen Valproic Acid Ur Phencyclidine Scrn Ur Amphetamines Screen U Benzodiazepines Scrn Urine Cocaine Screen U Marijuana (THC) Screen Ethyl Alcohol COVID-19 (URI) COVID-19 Clin Com 08/26/21 07:53 WBC 7.0 RBC 4.35 L Hgb 13.5 L Hct 38.5 L MCV 88.5 MCH 31.0 MCHC 35.1 RDW 12.9 Plt Count 200 MPV 9.4 Immature Gran % (Auto) 0.4 Neut % (Auto) 86.8 H Lymph % (Auto) 3.9 L [place] % (Auto) 5.6 Eos % (Auto) 3.2 Baso % (Auto) 0.1 Lymph # (Auto) 0.3 L [place] # (Auto) 0.4 Eos # (Auto) 0.2 Baso # (Auto) 0.0 Abs Immat Gran (auto) 0.03 Absolute Neuts (auto) 6.0 Absolute Nucleated RBC 0.000 Nucleated RBC % (auto) 0.0 Sodium Potassium Chloride Carbon Dioxide Anion Gap BUN Creatinine Estim Creat Clear Calc Estimated GFR Random Glucose Fasting Glucose Estimat Average Glucose Hemoglobin A1c % Calcium Magnesium Total Bilirubin Direct Bilirubin AST ALT Alkaline Phosphatase Lactate Dehydrogenase Total Creatine Kinase Total Protein Albumin Triglycerides Cholesterol LDL Cholesterol, Calc HDL Cholesterol Vitamin B12 Folate TSH Urine Color Urine Appearance Urine pH Ur Specific [place] Urine Protein Urine Glucose (UA) Urine Ketones Urine Blood Urine Nitrite Ur Leukocyte Esterase Urine RBC Urine WBC Ur Squamous Epith Cells Urine Bacteria Urine Opiates Screen Urine Fentanyl Screen Ur Barbiturates Screen Valproic Acid Ur Phencyclidine Scrn Ur Amphetamines Screen U Benzodiazepines Scrn Urine Cocaine Screen U Marijuana (THC) Screen Ethyl Alcohol COVID-19 (URI) COVID-19 Clin Com Airway Mallampati Class: III (Unable to assess) TM Dist: >3cm Heart: RRR Lungs: CTAB Assessment and Plan Assessment Anesthesia Assessment: Anesthesia Plan Discussed and Chart Reviewed Final Anesthetic Review Family History of Problems with Anesthesia: No History of Problems with Anesthesia: No NPO: Yes ASA Class: III Final Preanesthetic Review: No Changes in Pt Med Stat, Meds/Allgs Chart Reviewed, Consent Obtained/Reviewed and Anes Risks/Benef Reviewed Patient Risk: Intermediate Procedure Risk: Intermediate Anesthetic Plan Anesthetic Plan: GA Disposition: Standard PACU and Inp. Admit - Standard Bed
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
--- NOTE | 2021-08-26 13:21 | MHC.SHP ---
Pre-Procedural Eval Section A Date of Service: 08/26/21 The patient is an INPATIENT: Yes Changes since office visit: Yes New Medical Problems and Yes Changes in Medication; No Cold of Flu in the past 2 weeks and No Patient answered all questions The History & Physical has been completed within 30 days and I have reviewed it.: Yes Section B Chief Complaint: joleen Allergies: Allergies Allergy/AdvReac Type Severity Reaction Status Date / Time haloperidol [From Haldol] Allergy Unknown Verified 07/22/20 03:38 Plan I have reviewed the history and physical and performed a pertinent physical examination on my patient. No changes have occurred unless specified.
--- NOTE | 2021-08-26 13:22 | P.CONECT_ITS ---
[facility] Medical History HTN (hypertension) Kidney problem Family History: biol mother ? 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 Pt has supportive family Trauma History: Unknown. Meds/Allergies Meds Home Medications Acetaminophen (Acetaminophen 325 Mg Tablet) 975 mg PO QID PRN PRN Reason: Mild Pain (Scale Score 1-4) Last Admin: 08/21/21 06:35 Dose: 975 mg Documented by: Acetaminophen (Acetaminophen 325 Mg Tablet) 650 mg PO ONCE PRN PRN Reason: Pain, Mild (Pain Scale 1-3) Al Hydroxide/Mg Hydroxide (Magnesium Hydrox/Alum Hydrox 30 Ml Oral.Susp) 30 ml PO Q6H PRN PRN Reason: Heartburn/Nausea Amlodipine Besylate (Amlodipine Besylate 10 Mg Tablet) 10 mg PO DAILY [facility]; Protocol Last Admin: 08/26/21 12:22 Dose: Not Given Documented by: Aripiprazole (Aripiprazole 30 Mg Tablet) 30 mg PO DAILY [facility] Last Admin: 08/26/21 12:21 Dose: Not Given Documented by: Aripiprazole (Aripiprazole Er 400 Mg Suser.Syr) 400 mg IM Q28D [facility] Last Admin: 08/20/21 14:09 Dose: 400 mg Documented by: Bisoprolol Fumarate (Bisoprolol Fumarate 5 Mg Tablet) 10 mg PO DAILY [facility] Last Admin: 08/26/21 12:21 Dose: Not Given Documented by: Chlorpromazine HCl (Chlorpromazine Hcl 100 Mg Tablet) 100 mg PO Q1H PRN PRN Reason: Psychosis Last Admin: 08/26/21 11:27 Dose: 100 mg Documented by: Diazepam (Diazepam 5 Mg Tablet) 5 mg PO TID PRN PRN Reason: anxiety/restlessness Last Admin: 08/24/21 01:42 Dose: 5 mg Documented by: Diazepam (Diazepam 5 Mg Tablet) 10 mg PO BEDTIME [facility] Hydrochlorothiazide (Hydrochlorothiazide 12.5 Mg Tablet) 6.25 mg PO DAILY [facility] Last Admin: 08/26/21 12:23 Dose: Not Given Documented by: Lactated Ringer's (Lr) 1,000 mls @ 100 mls/hr IVCONT .Q10H [facility] Magnesium Hydroxide (Milk Of Magnesia 30 Ml Oral.Susp) 30 ml PO DAILY PRN PRN Reason: Constipation Multivitamins/Vitamin C (Multivitamin Tablet) 1 tab PO DAILY [facility] Last Admin: 08/26/21 12:22 Dose: Not Given Documented by: Ondansetron HCl (Ondansetron Hcl 4 Mg/2 Ml Vial) 4 mg IVPUSH ONCE PRN PRN Reason: Nausea and Vomiting Pharmacy Consult (Consult Rx Perform Med Rec) 1 each MISCELLANE ONCE PRN PRN Reason: Consult order Trazodone HCl (Trazodone Hcl 50 Mg Tablet) 50 mg PO BEDTIME PRN PRN Reason: Insomnia Last Admin: 08/25/21 00:48 Dose: 50 mg Documented by: Allergies Allergies Allergy/AdvReac Type Severity Reaction Status Date / Time haloperidol [From Haldol] Allergy Unknown Verified 07/22/20 03:38 Assessment & Plan I spent minutes with the patient and/or on the patient floor today, greater than?50% of which was spent counseling/coordinating care.
--- NOTE | 2021-08-26 13:36 | HO.ECTPROC ---
ECT Procedure Note Diagnosis/Treatment Date of Service: 08/26/21 Diagnosis: Bipolar disorder Previous ECT Date: 08/24/21 Current Treatment Number: 2 Treatment: Series Interval Clinical Notes: pt has been in restraints often clearly requires ect hx nms tolerated 1 st tx ECT Settings Device: THYMATRON DGx Electrode Placement: Bitemporal Program/Pulse Width: 0.50 Energy Percent: 100 Seizure Duration By EEG (in seconds): 32 Medications Administration General Anesthetic: Etomidate (14) Muscle Relaxant: Succinylcholine (120) Ancillary Medications Analgesics: Torodol - Pre ECT Anti-emetics: Zofran - Pre ECT Miscillaneous Medications: Propofol and Flumazenil Airway Management Airway Management: Bag Mask Ventilation Treatment Recommendations No Changes Recommended: No change
[2021-08-26 14:59] LABS: Hematocrit 37.1 % (42.0-52.0); Hemoglobin 12.5 g/dl (14.0-18.0); Mean Corpuscular HGB Conc 33.7 g/dl (31.0-36.0); Mean Platelet Volume 9.5 fL (9.4-12.4); Platelet Count 191 X10*3/uL (160-400); Red Blood Count 4.17 X10*6/uL (4.60-5.80); Red Cell Distribution Width 12.8 % (11.0-16.0)
--- NOTE | 2021-08-26 15:48 | PC.NURSE ---
per Md instruction, last bag potassium IV not hung, lab result was returned to [facility].
[2021-08-27] MEDS: traZODone HCL 50 MG TABLET PO (03:30)
[2021-08-27 08:45] VITALS: BP 124/74; PULSE 89; RESP 20; TEMP 37.1
[2021-08-27 09:01] LABS: MANUAL DIFF FLAG NO
[2021-08-27 09:03] LABS: Basophils Percent Auto 0.5 % (0-2); Eosinophils Percent Auto 1.1 % (0-4); Hematocrit 40.3 % (42.0-52.0); Hemoglobin 13.5 g/dl (14.0-18.0); Imm Gran Abs Auto 0.04 X10*3/uL (0.00-0.03); Imm Gran Pct Auto 1.1 % (0.0-0.4); Lymphocytes Absolute Auto 0.5 X10*3/uL (1.2-4.9); Lymphocytes Percent Auto 11.9 % (20-40); Mean Corpuscular HGB Conc 33.5 g/dl (31.0-36.0); Mean Corpuscular Hemoglobin 30.6 pg (27.0-33.0); Mean Corpuscular Volume 91.4 fL (80.0-98.0); Mean Platelet Volume 9.8 fL (9.4-12.4); Monocytes Absolute Auto 0.4 X10*3/uL (0.1-1.2); Monocytes Percent Auto 11.4 % (2-11); Neutrophils Absolute Auto 2.8 x10*3/uL (2.0-8.3); Platelet Count 178 X10*3/uL (160-400); Red Blood Count 4.41 X10*6/uL (4.60-5.80); Red Cell Distribution Width 13.2 % (11.0-16.0); White Blood Count 3.8 X10*3/uL (4.8-10.8)
[2021-08-27 09:17] LABS: Ammonia 45 umol/L (13-55)
[2021-08-27] MEDS: diazePAM 5 MG TABLET PO ×2 (09:43→15:18)
[2021-08-27] MEDS: Bisoprolol Fumarate 5 MG TABLET 10 MG PO (09:43)
[2021-08-27] MEDS: amLODIPine Besylate 10 MG TABLET PO (09:43)
[2021-08-27] MEDS: Multivitamin TABLET 1 TAB PO (09:43)
[2021-08-27] MEDS: Divalproex Sodium 500 MG TABLET.DR PO (09:43)
[2021-08-27 09:51] LABS: Alanine Aminotransferase 73 U/L (0-40); Albumin Level 3.5 g/dL (3.5-5.0); Alkaline Phosphatase 47 U/L (39-117); Anion Gap 17 (12-20); Aspartate Amino Transferase 102 U/L (5-37); Bilirubin Total 0.6 mg/dL (0.0-1.0); Blood Urea Nitrogen 21 mg/dL (9-16); Calcium 8.8 mg/dL (8.4-10.2); Carbon Dioxide 24 mmol/L (22-29); Chloride 107 mmol/L (96-108); Creatinine Clr Calc Pharmacy 77.6; Estimated Glomerular Filt Rate 49; Glucose Fasting 75 mg/dL (60-99); Iron 24 mcg/dL (45-160); Percent Iron Saturation 10 % (15-50); Potassium 3.8 mmol/L (3.3-5.1); Sodium 144 mmol/L (135-145); Total Iron Binding Capacity 245 mcg/dL (228-428); Unsaturated Iron Binding 221 ug/dL
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
[2021-08-27] MEDS: Loperamide HCl 2 MG CAPSULE PO (12:31)
[2021-08-27 13:00] VITALS: BP 88/51; PULSE 81; RESP 18; O2SAT 93
[2021-08-27] MEDS: Nystatin Oral Susp 500,000 UNIT/5 ML ORAL.SUSP 400000 UNIT BUCCAL ×2 (14:13→18:23)
[2021-08-27] MEDS: chlorproMAZINE HCl 25 MG TABLET 50 MG PO (15:18)
[2021-08-27 15:56] LABS: Influenza A PCR NEGATIVE (Negative); Influenza B PCR NEGATIVE (Negative); Resp Syncy Virus RNA Qual PCR NEGATIVE (Negative); SARS COV2 PCR INHOUSE NEGATIVE (Negative)
[2021-08-27 16:15] VITALS: BP 111/58; PULSE 80
[2021-08-27] MEDS: Acetaminophen 325 MG TABLET 975 MG PO (18:43)
[2021-08-28] VITALS (14 sets, daily range): BP systolic 100–133; BP diastolic 55–81; PULSE 68–92; RESP 12–22; TEMP 36.1–37.3; O2SAT 92–98
[2021-08-28] MEDS: traZODone HCL 50 MG TABLET PO (00:28)
[2021-08-28] MEDS: diazePAM 5 MG TABLET PO ×3 (00:28→17:12)
--- NOTE | 2021-08-28 06:57 | P.CONAN_ITS ---
FORM[facility]LY [facility], LATER [facility] Active Problems Active Problems: All Active Problems (Updated 08/20/21 @ 17:39 by Fredy Caldera DO) Physical exam (Acute) Bipolar affective disorder, mixed, severe, with psychotic behavior (Acute) Bipolar affective, manic, full remis (Acute) Hypertension (Acute) Hyperlipidemia (Acute) Dyskinesia, tardive (Acute) Manic behavior (Acute) Rash (Acute) Past Medical History Medical History HTN (hypertension) Kidney problem Family History Family history of problems with anesthesia: No Surgical History History of Problems with Anesthesia: No Social History Social History Household Members: Spouse Household Members Other:: Housing: House Do you presently have visiting nurse or other home services: No Unable to assess alcohol history related to: Unknown Patient Tobacco Use Status: Tobacco use Unknown Second Hand Smoke Exposure: No Use of substances other than those prescribed or required for medical reasons: Unknown Currently Displaying Signs/Symptoms of Drug Intoxication Withdrawal: No Any prior treatment program specific to substance use: No Advance Directives: No Advance Directives Information Provided: No Advance Directives on File: No Healthcare Proxy: Yes Guardian: No Do you have thoughts of harming others: None Do you have a plan to hurt others: No Plan Recently lost weight without trying: Unsure How much weight loss: Unsure service: No Sexual orientation: Straight/Heterosexual Meds Allergies Allergy/AdvReac Type Severity Reaction Status Date / Time haloperidol [From Haldol] Allergy Unknown Verified 07/22/20 03:38 Active Medications: Current Medications Acetaminophen (Acetaminophen 325 Mg Tablet) 975 mg PO QID PRN PRN Reason: Mild Pain (Scale Score 1-4) Last Admin: 08/27/21 18:43 Dose: 975 mg Documented by: Al Hydroxide/Mg Hydroxide (Magnesium Hydrox/Alum Hydrox 30 Ml Oral.Susp) 30 ml PO Q6H PRN PRN Reason: Heartburn/Nausea Amlodipine Besylate (Amlodipine Besylate 10 Mg Tablet) 10 mg PO DAILY CONRAD; Protocol Last Admin: 08/27/21 09:43 Dose: 10 mg Documented by: Aripiprazole (Aripiprazole Er 400 Mg Suser.Syr) 400 mg IM Q28D [facility] Last Admin: 08/20/21 14:09 Dose: 400 mg Documented by: Bisoprolol Fumarate (Bisoprolol Fumarate 5 Mg Tablet) 10 mg PO DAILY [facility] Last Admin: 08/27/21 09:43 Dose: 10 mg Documented by: Diazepam (Diazepam 5 Mg Tablet) 5 mg PO TID PRN PRN Reason: anxiety/restlessness Last Admin: 08/28/21 00:28 Dose: 5 mg Documented by: Diazepam (Diazepam 5 Mg Tablet) 10 mg PO BEDTIME [facility] Last Admin: 08/27/21 22:31 Dose: Not Given Documented by: Loperamide HCl (Loperamide Hcl 2 Mg Capsule) 2 mg PO Q4H PRN PRN Reason: Diarrhea Last Admin: 08/27/21 12:31 Dose: 2 mg Documented by: Magnesium Hydroxide (Milk Of Magnesia 30 Ml Oral.Susp) 30 ml PO DAILY PRN PRN Reason: Constipation Multivitamins/Vitamin C (Multivitamin Tablet) 1 tab PO DAILY [facility] Last Admin: 08/27/21 09:43 Dose: 1 tab Documented by: Nystatin (Nystatin Oral Susp 500,000 Unit/5 Ml Oral.Susp) 400,000 unit BUCCAL QID [facility]; Protocol Last Admin: 08/27/21 22:31 Dose: Not Given Documented by: Pharmacy Consult (Consult Rx Perform Med Rec) 1 each MISCELLANE ONCE PRN PRN Reason: Consult order Trazodone HCl (Trazodone Hcl 50 Mg Tablet) 50 mg PO BEDTIME PRN PRN Reason: Insomnia Last Admin: 08/28/21 00:28 Dose: 50 mg Documented by: Home Medications Medication Instructions Recorded Confirmed Last Taken Type acetaminophen 500 mg tablet 1,000 mg PO QID PRN 08/16/21 08/16/21 Unknown History (Tylenol Extra Strength) amlodipine 10 mg tablet 1 tab PO DAILY 08/16/21 08/16/21 Unknown History aripiprazole 400 mg intramuscular 400 mg IM QMONTH 08/16/21 08/16/21 Unknown History suspension,extended release (Abilify Maintena) bisoprolol 10 1 tab PO DAILY 08/16/21 08/16/21 Unknown History mg-hydrochlorothiazide 6.25 mg tablet multivitamin 1 tab PO DAILY 08/16/21 08/16/21 Unknown History vitamin B complex 1 tab PO DAILY 08/16/21 08/16/21 Unknown History Exam Exam Date and Time: August 28, 2021 0657 Height,Weight and Vital Signs: Height 6 ft 2 in Weight 101 kg Last Vital Signs Temp 98.7 F 08/28/21 06:41 Pulse 92 08/28/21 06:41 Resp 20 08/28/21 06:41 BP 126/74 08/28/21 06:41 Pulse Ox 97 08/28/21 06:41 Pertinent Lab Results Pertinent Lab Results: Laboratory Tests 08/16/21 08/16/21 08/16/21 16:05 16:42 16:42 WBC RBC Hgb Hct MCV MCH MCHC RDW Plt Count MPV Immature Gran % (Auto) Neut % (Auto) Lymph % (Auto) [place] % (Auto) Eos % (Auto) Baso % (Auto) Lymph # (Auto) [place] # (Auto) Eos # (Auto) Baso # (Auto) Abs Immat Gran (auto) Absolute Neuts (auto) Absolute Nucleated RBC Nucleated RBC % (auto) Sodium Potassium Chloride Carbon Dioxide Anion Gap BUN Creatinine Estim Creat Clear Calc Estimated GFR Random Glucose Fasting Glucose Estimat Average Glucose Hemoglobin A1c % Calcium Magnesium Iron TIBC % Saturation Unsat Iron Binding Total Bilirubin Direct Bilirubin AST ALT Alkaline Phosphatase Ammonia Lactate Dehydrogenase Total Creatine Kinase Total Protein Albumin Triglycerides Cholesterol LDL Cholesterol, Calc HDL Cholesterol Vitamin B12 Folate TSH Urine Color YELLOW Urine Appearance CLEAR Urine pH 6.0 Ur Specific [place] 1.010 Urine Protein 2+ H Urine Glucose (UA) NEG Urine Ketones NEG Urine Blood 2+ H Urine Nitrite NEG Ur Leukocyte Esterase NEG Urine RBC 5-9 H Urine WBC 0 Ur Squamous Epith Cells NONE Urine Bacteria NONE Urine Opiates Screen Not Detected Urine Fentanyl Screen Not Detected Ur Barbiturates Screen Not Detected Valproic Acid Ur Phencyclidine Scrn Not Detected Ur Amphetamines Screen Not Detected U Benzodiazepines Scrn Not Detected Urine Cocaine Screen Not Detected U Marijuana (THC) Screen Not Detected Ethyl Alcohol COVID-19 (URI) Negative COVID-19 Clin Com See Note Influenza Type A (PCR) Influenza Type B (PCR) RSV RNA Qual (PCR) SARS-CoV-2 RNA (RT-PCR) 08/16/21 08/16/21 08/16/21 16:51 16:51 16:51 WBC 7.8 RBC 4.83 Hgb 14.8 Hct 42.1 MCV 87.2 MCH 30.6 MCHC 35.2 RDW 12.7 Plt Count 226 MPV 9.3 L Immature Gran % (Auto) 0.4 Neut % (Auto) 72.1 Lymph % (Auto) 15.1 L [place] % (Auto) 8.5 Eos % (Auto) 3.5 Baso % (Auto) 0.4 Lymph # (Auto) 1.2 [place] # (Auto) 0.7 Eos # (Auto) 0.3 Baso # (Auto) 0.0 Abs Immat Gran (auto) 0.03 Absolute Neuts (auto) 5.6 Absolute Nucleated RBC 0.000 Nucleated RBC % (auto) 0.0 Sodium 138 Potassium 3.9 Chloride 102 Carbon Dioxide 24 Anion Gap 16 BUN 16 Creatinine 1.49 H Estim Creat Clear Calc 80.2 Estimated GFR 51 Random Glucose 117 H Fasting Glucose Estimat Average Glucose Hemoglobin A1c % Calcium 10.1 D Magnesium Iron TIBC % Saturation Unsat Iron Binding Total Bilirubin 0.7 Direct Bilirubin AST 47 H D ALT 63 H Alkaline Phosphatase 56 Ammonia Lactate Dehydrogenase Total Creatine Kinase Total Protein 8.2 H D Albumin 4.9 D Triglycerides Cholesterol LDL Cholesterol, Calc HDL Cholesterol Vitamin B12 Folate TSH Urine Color Urine Appearance Urine pH Ur Specific [place] Urine Protein Urine Glucose (UA) Urine Ketones Urine Blood Urine Nitrite Ur Leukocyte Esterase Urine RBC Urine WBC Ur Squamous Epith Cells Urine Bacteria Urine Opiates Screen Urine Fentanyl Screen Ur Barbiturates Screen Valproic Acid Ur Phencyclidine Scrn Ur Amphetamines Screen U Benzodiazepines Scrn Urine Cocaine Screen U Marijuana (THC) Screen Ethyl Alcohol < 10 COVID-19 (URI) COVID-19 Clin Com Influenza Type A (PCR) Influenza Type B (PCR) RSV RNA Qual (PCR) SARS-CoV-2 RNA (RT-PCR) 08/17/21 08/17/21 08/17/21 06:42 06:42 06:42 WBC RBC Hgb Hct MCV MCH MCHC RDW Plt Count MPV Immature Gran % (Auto) Neut % (Auto) Lymph % (Auto) [place] % (Auto) Eos % (Auto) Baso % (Auto) Lymph # (Auto) [place] # (Auto) Eos # (Auto) Baso # (Auto) Abs Immat Gran (auto) Absolute Neuts (auto) Absolute Nucleated RBC Nucleated RBC % (auto) Sodium 138 Potassium 3.9 Chloride 102 Carbon Dioxide 24 Anion Gap 16 BUN 12 Creatinine 1.47 H Estim Creat Clear Calc 81.3 Estimated GFR 52 Random Glucose Fasting Glucose 112 H Estimat Average Glucose 97 Hemoglobin A1c % 5.0 Calcium 10.2 Magnesium Iron TIBC % Saturation Unsat Iron Binding Total Bilirubin 1.2 H Direct Bilirubin AST 48 H ALT 65 H Alkaline Phosphatase 56 Ammonia Lactate Dehydrogenase Total Creatine Kinase Total Protein 8.5 H Albumin 4.9 Triglycerides 133 Cholesterol 226 D LDL Cholesterol, Calc 152 HDL Cholesterol 48 D Vitamin B12 558 Folate > 20.0 TSH 1.87 Urine Color Urine Appearance Urine pH Ur Specific [place] Urine Protein Urine Glucose (UA) Urine Ketones Urine Blood Urine Nitrite Ur Leukocyte Esterase Urine RBC Urine WBC Ur Squamous Epith Cells Urine Bacteria Urine Opiates Screen Urine Fentanyl Screen Ur Barbiturates Screen Valproic Acid Ur Phencyclidine Scrn Ur Amphetamines Screen U Benzodiazepines Scrn Urine Cocaine Screen U Marijuana (THC) Screen Ethyl Alcohol COVID-19 (URI) COVID-19 Clin Com Influenza Type A (PCR) Influenza Type B (PCR) RSV RNA Qual (PCR) SARS-CoV-2 RNA (RT-PCR) 08/24/21 08/24/21 08/25/21 07:19 07:19 17:19 WBC 5.9 RBC 4.04 L Hgb 12.2 L Hct 35.1 L MCV 86.9 MCH 30.2 MCHC 34.8 RDW 12.6 Plt Count 189 MPV 9.2 L Immature Gran % (Auto) 0.3 Neut % (Auto) 68.7 Lymph % (Auto) 16.5 L [place] % (Auto) 10.8 Eos % (Auto) 3.5 Baso % (Auto) 0.2 Lymph # (Auto) 1.0 L [place] # (Auto) 0.6 Eos # (Auto) 0.2 Baso # (Auto) 0.0 Abs Immat Gran (auto) 0.02 Absolute Neuts (auto) 4.1 Absolute Nucleated RBC 0.000 Nucleated RBC % (auto) 0.0 Sodium 141 141 Potassium 3.1 L D 3.0 L Chloride 105 102 Carbon Dioxide 24 27 Anion Gap 15 15 BUN 17 H 13 Creatinine 1.68 H 1.45 H Estim Creat Clear Calc 71.2 82.5 Estimated GFR 45 53 Random Glucose Fasting Glucose 90 Estimat Average Glucose Hemoglobin A1c % Calcium 9.1 D Magnesium Iron TIBC % Saturation Unsat Iron Binding Total Bilirubin 0.7 0.5 Direct Bilirubin 0.2 AST 120 H 119 H ALT 47 H 56 H Alkaline Phosphatase 45 43 Ammonia Lactate Dehydrogenase 472 H Total Creatine Kinase 6578 H Total Protein 6.2 L D 5.8 L Albumin 3.8 D 3.5 Triglycerides Cholesterol LDL Cholesterol, Calc HDL Cholesterol Vitamin B12 Folate TSH Urine Color Urine Appearance Urine pH Ur Specific [place] Urine Protein Urine Glucose (UA) Urine Ketones Urine Blood Urine Nitrite Ur Leukocyte Esterase Urine RBC Urine WBC Ur Squamous Epith Cells Urine Bacteria Urine Opiates Screen Urine Fentanyl Screen Ur Barbiturates Screen Valproic Acid 103.1 H Ur Phencyclidine Scrn Ur Amphetamines Screen U Benzodiazepines Scrn Urine Cocaine Screen U Marijuana (THC) Screen Ethyl Alcohol COVID-19 (URI) COVID-19 Clin Com Influenza Type A (PCR) Influenza Type B (PCR) RSV RNA Qual (PCR) SARS-CoV-2 RNA (RT-PCR) 08/25/21 08/26/21 08/26/21 17:19 07:53 07:53 WBC 5.6 RBC 3.90 L Hgb 11.9 L Hct 34.4 L MCV 88.2 MCH 30.5 MCHC 34.6 RDW 12.9 Plt Count 183 MPV 9.1 L Immature Gran % (Auto) 0.5 H Neut % (Auto) 62.7 Lymph % (Auto) 18.9 L [place] % (Auto) 10.9 Eos % (Auto) 6.6 H Baso % (Auto) 0.4 Lymph # (Auto) 1.1 L [place] # (Auto) 0.6 Eos # (Auto) 0.4 Baso # (Auto) 0.0 Abs Immat Gran (auto) 0.03 Absolute Neuts (auto) 3.5 Absolute Nucleated RBC 0.000 Nucleated RBC % (auto) 0.0 Sodium 144 Cancelled Potassium 3.9 D Cancelled Chloride 105 Cancelled Carbon Dioxide 26 Cancelled Anion Gap 17 Cancelled BUN 11 Creatinine 1.26 Estim Creat Clear Calc 94.9 Estimated GFR > 60 Random Glucose 93 Fasting Glucose Estimat Average Glucose Hemoglobin A1c % Calcium 9.1 Magnesium Cancelled Iron TIBC % Saturation Unsat Iron Binding Total Bilirubin Direct Bilirubin AST ALT Alkaline Phosphatase Ammonia Lactate Dehydrogenase Total Creatine Kinase 5470 H Total Protein Albumin Triglycerides Cholesterol LDL Cholesterol, Calc HDL Cholesterol Vitamin B12 Folate TSH Urine Color Urine Appearance Urine pH Ur Specific [place] Urine Protein Urine Glucose (UA) Urine Ketones Urine Blood Urine Nitrite Ur Leukocyte Esterase Urine RBC Urine WBC Ur Squamous Epith Cells Urine Bacteria Urine Opiates Screen Urine Fentanyl Screen Ur Barbiturates Screen Valproic Acid Ur Phencyclidine Scrn Ur Amphetamines Screen U Benzodiazepines Scrn Urine Cocaine Screen U Marijuana (THC) Screen Ethyl Alcohol COVID-19 (URI) COVID-19 Clin Com Influenza Type A (PCR) Influenza Type B (PCR) RSV RNA Qual (PCR) SARS-CoV-2 RNA (RT-PCR) 08/26/21 08/26/21 08/27/21 07:53 14:30 08:19 WBC 7.0 5.0 3.8 L RBC 4.35 L 4.17 L 4.41 L Hgb 13.5 L 12.5 L 13.5 L Hct 38.5 L 37.1 L 40.3 L MCV 88.5 89.0 91.4 MCH 31.0 30.0 30.6 MCHC 35.1 33.7 33.5 RDW 12.9 12.8 13.2 Plt Count 200 191 178 MPV 9.4 9.5 9.8 Immature Gran % (Auto) 0.4 1.1 H Neut % (Auto) 86.8 H 74.0 H Lymph % (Auto) 3.9 L 11.9 L [place] % (Auto) 5.6 11.4 H Eos % (Auto) 3.2 1.1 Baso % (Auto) 0.1 0.5 Lymph # (Auto) 0.3 L 0.5 L [place] # (Auto) 0.4 0.4 Eos # (Auto) 0.2 0.0 Baso # (Auto) 0.0 0.0 Abs Immat Gran (auto) 0.03 0.04 H Absolute Neuts (auto) 6.0 2.8 Absolute Nucleated RBC 0.000 0.000 0.000 Nucleated RBC % (auto) 0.0 0.0 0.0 Sodium Potassium Chloride Carbon Dioxide Anion Gap BUN Creatinine Estim Creat Clear Calc Estimated GFR Random Glucose Fasting Glucose Estimat Average Glucose Hemoglobin A1c % Calcium Magnesium Iron TIBC % Saturation Unsat Iron Binding Total Bilirubin Direct Bilirubin AST ALT Alkaline Phosphatase Ammonia Lactate Dehydrogenase Total Creatine Kinase Total Protein Albumin Triglycerides Cholesterol LDL Cholesterol, Calc HDL Cholesterol Vitamin B12 Folate TSH Urine Color Urine Appearance Urine pH Ur Specific [place] Urine Protein Urine Glucose (UA) Urine Ketones Urine Blood Urine Nitrite Ur Leukocyte Esterase Urine RBC Urine WBC Ur Squamous Epith Cells Urine Bacteria Urine Opiates Screen Urine Fentanyl Screen Ur Barbiturates Screen Valproic Acid Ur Phencyclidine Scrn Ur Amphetamines Screen U Benzodiazepines Scrn Urine Cocaine Screen U Marijuana (THC) Screen Ethyl Alcohol COVID-19 (URI) COVID-19 Clin Com Influenza Type A (PCR) Influenza Type B (PCR) RSV RNA Qual (PCR) SARS-CoV-2 RNA (RT-PCR) 08/27/21 08/27/21 08/27/21 08:19 08:19 13:58 WBC RBC Hgb Hct MCV MCH MCHC RDW Plt Count MPV Immature Gran % (Auto) Neut % (Auto) Lymph % (Auto) [place] % (Auto) Eos % (Auto) Baso % (Auto) Lymph # (Auto) [place] # (Auto) Eos # (Auto) Baso # (Auto) Abs Immat Gran (auto) Absolute Neuts (auto) Absolute Nucleated RBC Nucleated RBC % (auto) Sodium 144 Potassium 3.8 Chloride 107 Carbon Dioxide 24 Anion Gap 17 BUN 21 H D Creatinine 1.54 H Estim Creat Clear Calc 77.6 Estimated GFR 49 Random Glucose Fasting Glucose 75 Estimat Average Glucose Hemoglobin A1c % Calcium 8.8 Magnesium Iron 24 L TIBC 245 % Saturation 10 L Unsat Iron Binding 221 Total Bilirubin 0.6 Direct Bilirubin AST 102 H ALT 73 H Alkaline Phosphatase 47 Ammonia 45 Lactate Dehydrogenase Total Creatine Kinase 3624 H Total Protein 6.0 L Albumin 3.5 Triglycerides Cholesterol LDL Cholesterol, Calc HDL Cholesterol Vitamin B12 Folate TSH Urine Color Urine Appearance Urine pH Ur Specific [place] Urine Protein Urine Glucose (UA) Urine Ketones Urine Blood Urine Nitrite Ur Leukocyte Esterase Urine RBC Urine WBC Ur Squamous Epith Cells Urine Bacteria Urine Opiates Screen Urine Fentanyl Screen Ur Barbiturates Screen Valproic Acid Ur Phencyclidine Scrn Ur Amphetamines Screen U Benzodiazepines Scrn Urine Cocaine Screen U Marijuana (THC) Screen Ethyl Alcohol COVID-19 (URI) COVID-19 Clin Com Influenza Type A (PCR) NEGATIVE Influenza Type B (PCR) NEGATIVE RSV RNA Qual (PCR) NEGATIVE SARS-CoV-2 RNA (RT-PCR) NEGATIVE Airway Mallampati Class: II TM Dist: >3cm Neck ROM: Full Heart: rrr Lungs: cta Assessment and Plan Assessment Anesthesia Assessment: Anesthesia Plan Discussed and Chart Reviewed Final Anesthetic Review Family History of Problems with Anesthesia: No History of Problems with Anesthesia: No NPO: Yes ASA Class: III Final Preanesthetic Review: No Changes in Pt Med Stat, Meds/Allgs Chart Reviewed and Consent Obtained/Reviewed Patient Risk: Intermediate Procedure Risk: Intermediate Anesthetic Plan Anesthetic Plan: GA Disposition: Standard PACU
--- NOTE | 2021-08-28 07:03 | MHC.SHP ---
Pre-Procedural Eval Section A Date of Service: 08/28/21 The patient is an INPATIENT: Yes Changes since office visit: Yes New Medical Problems and Yes Changes in Medication; No Cold of Flu in the past 2 weeks and No Patient answered all questions The History & Physical has been completed within 30 days and I have reviewed it.: Yes Section B Chief Complaint: joleen Allergies: Allergies Allergy/AdvReac Type Severity Reaction Status Date / Time haloperidol [From Haldol] Allergy Unknown Verified 07/22/20 03:38 Plan I have reviewed the history and physical and performed a pertinent physical examination on my patient. No changes have occurred unless specified.
--- NOTE | 2021-08-28 07:04 | HO.ECTPROC ---
ECT Procedure Note Diagnosis/Treatment Date of Service: 08/28/21 Diagnosis: Bipolar disorder Previous ECT Date: 08/26/21 Current Treatment Number: 3 Treatment: Series Interval Clinical Notes: pt gradually improving ECT Settings Device: THYMATRON DGx Electrode Placement: Bitemporal Program/Pulse Width: 0.50 Energy Percent: 100 Seizure Duration By EEG (in seconds): 54 Medications Administration General Anesthetic: Etomidate (14) Muscle Relaxant: Succinylcholine (100) Ancillary Medications Analgesics: Torodol - Pre ECT Anti-emetics: Zofran - Pre ECT Miscillaneous Medications: Propofol (30 post) and Flumazenil Airway Management Airway Management: Bag Mask Ventilation Treatment Recommendations No Changes Recommended: No change Pt Tolerated Procedure w/o Issue: Yes
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
[2021-08-28] MEDS: Bisoprolol Fumarate 5 MG TABLET 10 MG PO (09:44)
[2021-08-28] MEDS: amLODIPine Besylate 10 MG TABLET PO (09:44)
[2021-08-28] MEDS: Multivitamin TABLET 1 TAB PO (09:44)
[2021-08-28] MEDS: Nystatin Oral Susp 500,000 UNIT/5 ML ORAL.SUSP 400000 UNIT BUCCAL ×4 (09:45→20:25)
[2021-08-28 09:56] LABS: Alanine Aminotransferase 66 U/L (0-40); Albumin Level 3.3 g/dL (3.5-5.0); Alkaline Phosphatase 44 U/L (39-117); Anion Gap 11 (12-20); Aspartate Amino Transferase 69 U/L (5-37); Bilirubin Total 0.6 mg/dL (0.0-1.0); Blood Urea Nitrogen 13 mg/dL (9-16); Calcium 8.5 mg/dL (8.4-10.2); Carbon Dioxide 29 mmol/L (22-29); Chloride 107 mmol/L (96-108); Creatinine Clr Calc Pharmacy 92.7; Estimated Glomerular Filt Rate > 60; Glucose Random 107 mg/dL (60-115); Magnesium 1.8 mg/dL (1.6-2.6); Potassium 3.4 mmol/L (3.3-5.1); Sodium 144 mmol/L (135-145); Total Protein 5.8 g/dL (6.5-8.0)
[2021-08-28] MEDS: OLANZapine ODT 10 MG TAB.RAPDIS TRANSLINGU (10:46)
[2021-08-28] MEDS: OLANZapine 5 MG TABLET PO ×2 (17:10→20:24)
[2021-08-28] MEDS: diazePAM 5 MG TABLET 10 MG PO (20:24)
[2021-08-28] MEDS: Acetaminophen 325 MG TABLET 975 MG PO (20:33)
[2021-08-29] MEDS: diazePAM 5 MG TABLET PO ×2 (02:57→07:26)
[2021-08-29] MEDS: OLANZapine 5 MG TABLET PO (03:10)
[2021-08-29 07:20] LABS: MANUAL DIFF FLAG NO
[2021-08-29 07:24] LABS: Basophils Percent Auto 0.3 % (0-2); Eosinophils Absolute Auto 0.5 X10*3/uL (0.0-0.4); Eosinophils Percent Auto 6.7 % (0-4); Hematocrit 37.2 % (42.0-52.0); Hemoglobin 12.6 g/dl (14.0-18.0); Imm Gran Abs Auto 0.07 X10*3/uL (0.00-0.03); Lymphocytes Absolute Auto 1.1 X10*3/uL (1.2-4.9); Lymphocytes Percent Auto 16.3 % (20-40); Mean Corpuscular HGB Conc 33.9 g/dl (31.0-36.0); Mean Corpuscular Hemoglobin 30.1 pg (27.0-33.0); Mean Platelet Volume 8.9 fL (9.4-12.4); Monocytes Absolute Auto 0.9 X10*3/uL (0.1-1.2); Monocytes Percent Auto 12.9 % (2-11); Neutrophils Absolute Auto 4.4 x10*3/uL (2.0-8.3); Neutrophils Percent Auto 62.8 % (45-73); Platelet Count 204 X10*3/uL (160-400); Red Blood Count 4.18 X10*6/uL (4.60-5.80); Red Cell Distribution Width 13.2 % (11.0-16.0)
[2021-08-29 07:43] LABS: Estimated Average Glucose 94 mg/dL; Hemoglobin A1c % 4.9 %
[2021-08-29] MEDS: Multivitamin TABLET 1 TAB PO (08:28)
[2021-08-29] MEDS: Nystatin Oral Susp 500,000 UNIT/5 ML ORAL.SUSP 400000 UNIT BUCCAL ×4 (08:28→19:53)
[2021-08-29] MEDS: Bisoprolol Fumarate 5 MG TABLET 10 MG PO (08:28)
[2021-08-29] MEDS: amLODIPine Besylate 10 MG TABLET PO (08:28)
[2021-08-29 09:00] VITALS: PULSE 86; RESP 22; TEMP 36.9; O2SAT 97
[2021-08-29] MEDS: QUEtiapine Fumarate 100 MG TABLET PO (10:14)
[2021-08-29] MEDS: Divalproex Sodium 500 MG TABLET.DR PO (10:14)
[2021-08-29 13:00] VITALS: PULSE 94; RESP 20; TEMP 36.6; O2SAT 96
[2021-08-29 18:00] VITALS: RESP 16
[2021-08-29] MEDS: diazePAM 5 MG TABLET 10 MG PO (19:53)
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
[2021-08-30] VITALS (13 sets, daily range): BP systolic 108–136; BP diastolic 66–87; PULSE 66–103; RESP 11–20; TEMP 36.5–37.7; O2SAT 92–97
[2021-08-30] MEDS: QUEtiapine Fumarate 100 MG TABLET PO ×3 (05:41→21:02)
--- NOTE | 2021-08-30 07:05 | P.CONAN_ITS ---
COUNTS INCLUDE 234 BEDS AT THE [facility] Active Problems Active Problems: All Active Problems (Updated 08/20/21 @ 17:39 by Fredy Caldera DO) Physical exam (Acute) Bipolar affective disorder, mixed, severe, with psychotic behavior (Acute) Bipolar affective, manic, full remis (Acute) Hypertension (Acute) Hyperlipidemia (Acute) Dyskinesia, tardive (Acute) Manic behavior (Acute) Rash (Acute) Past Medical History Medical History HTN (hypertension) Kidney problem Family History Family history of problems with anesthesia: No Surgical History History of Problems with Anesthesia: No Social History Social History Household Members: Spouse Household Members Other:: Housing: House Do you presently have visiting nurse or other home services: No Unable to assess alcohol history related to: Unknown Patient Tobacco Use Status: Tobacco use Unknown Second Hand Smoke Exposure: No Use of substances other than those prescribed or required for medical reasons: Unknown Currently Displaying Signs/Symptoms of Drug Intoxication Withdrawal: No Any prior treatment program specific to substance use: No Advance Directives: No Advance Directives Information Provided: No Advance Directives on File: No Healthcare Proxy: Yes Guardian: No Do you have thoughts of harming others: None Do you have a plan to hurt others: No Plan Recently lost weight without trying: Unsure How much weight loss: Unsure service: No Sexual orientation: Straight/Heterosexual Meds Allergies Allergy/AdvReac Type Severity Reaction Status Date / Time haloperidol [From Haldol] Allergy Unknown Verified 07/22/20 03:38 Active Medications: Current Medications Acetaminophen (Acetaminophen 325 Mg Tablet) 975 mg PO QID PRN PRN Reason: Mild Pain (Scale Score 1-4) Last Admin: 08/28/21 20:33 Dose: 975 mg Documented by: Al Hydroxide/Mg Hydroxide (Magnesium Hydrox/Alum Hydrox 30 Ml Oral.Susp) 30 ml PO Q6H PRN PRN Reason: Heartburn/Nausea Amlodipine Besylate (Amlodipine Besylate 10 Mg Tablet) 10 mg PO DAILY CONRAD; Protocol Last Admin: 08/29/21 08:28 Dose: 10 mg Documented by: Aripiprazole (Aripiprazole Er 400 Mg Suser.Syr) 400 mg IM Q28D [facility] Last Admin: 08/20/21 14:09 Dose: 400 mg Documented by: Bisoprolol Fumarate (Bisoprolol Fumarate 5 Mg Tablet) 10 mg PO DAILY [facility] Last Admin: 08/29/21 08:28 Dose: 10 mg Documented by: Diazepam (Diazepam 5 Mg Tablet) 5 mg PO TID PRN PRN Reason: anxiety/restlessness Last Admin: 08/29/21 07:26 Dose: 5 mg Documented by: Diazepam (Diazepam 5 Mg Tablet) 10 mg PO BEDTIME [facility] Last Admin: 08/29/21 19:53 Dose: 10 mg Documented by: Lactated Ringer's (Lr) 1,000 mls @ 50 mls/hr IVCONT .Q20H [facility]RAD Loperamide HCl (Loperamide Hcl 2 Mg Capsule) 2 mg PO Q4H PRN PRN Reason: Diarrhea Last Admin: 08/27/21 12:31 Dose: 2 mg Documented by: Magnesium Hydroxide (Milk Of Magnesia 30 Ml Oral.Susp) 30 ml PO DAILY PRN PRN Reason: Constipation Multivitamins/Vitamin C (Multivitamin Tablet) 1 tab PO DAILY [facility] Last Admin: 08/29/21 08:28 Dose: 1 tab Documented by: Nystatin (Nystatin Oral Susp 500,000 Unit/5 Ml Oral.Susp) 400,000 unit BUCCAL QID [facility]; Protocol Last Admin: 08/29/21 19:53 Dose: 400,000 unit Documented by: Quetiapine Fumarate (Quetiapine Fumarate 100 Mg Tablet) 100 mg PO Q4H PRN PRN Reason: Psychosis Last Admin: 08/30/21 05:41 Dose: 100 mg Documented by: Trazodone HCl (Trazodone Hcl 50 Mg Tablet) 50 mg PO BEDTIME PRN PRN Reason: Insomnia Last Admin: 08/28/21 00:28 Dose: 50 mg Documented by: Home Medications Medication Instructions Recorded Confirmed Last Taken Type acetaminophen 500 mg tablet 1,000 mg PO QID PRN 08/16/21 08/16/21 Unknown History (Tylenol Extra Strength) amlodipine 10 mg tablet 1 tab PO DAILY 08/16/21 08/16/21 Unknown History aripiprazole 400 mg intramuscular 400 mg IM QMONTH 08/16/21 08/16/21 Unknown History suspension,extended release (Abiliflaura Maintena) bisoprolol 10 1 tab PO DAILY 08/16/21 08/16/21 Unknown History mg-hydrochlorothiazide 6.25 mg tablet multivitamin 1 tab PO DAILY 08/16/21 08/16/21 Unknown History vitamin B complex 1 tab PO DAILY 08/16/21 08/16/21 Unknown History Exam Exam Date and Time: August 30, 2021 0705 Height,Weight and Vital Signs: Height 6 ft 2 in Weight 101 kg Last Vital Signs Temp 99.3 F 08/30/21 06:29 Pulse 103 H 08/30/21 06:29 Resp 20 08/30/21 06:29 BP 132/87 08/30/21 06:29 Pulse Ox 96 08/30/21 06:29 Pertinent Lab Results Pertinent Lab Results: Laboratory Tests 08/16/21 08/16/21 08/16/21 16:05 16:42 16:42 WBC RBC Hgb Hct MCV MCH MCHC RDW Plt Count MPV Immature Gran % (Auto) Neut % (Auto) Lymph % (Auto) [place] % (Auto) Eos % (Auto) Baso % (Auto) Lymph # (Auto) [place] # (Auto) Eos # (Auto) Baso # (Auto) Abs Immat Gran (auto) Absolute Neuts (auto) Absolute Nucleated RBC Nucleated RBC % (auto) Sodium Potassium Chloride Carbon Dioxide Anion Gap BUN Creatinine Estim Creat Clear Calc Estimated GFR Random Glucose Fasting Glucose Estimat Average Glucose Hemoglobin A1c % Calcium Magnesium Iron TIBC % Saturation Unsat Iron Binding Total Bilirubin Direct Bilirubin AST ALT Alkaline Phosphatase Ammonia Lactate Dehydrogenase Total Creatine Kinase Total Protein Albumin Triglycerides Cholesterol LDL Cholesterol, Calc HDL Cholesterol Vitamin B12 Folate TSH Urine Color YELLOW Urine Appearance CLEAR Urine pH 6.0 Ur Specific [place] 1.010 Urine Protein 2+ H Urine Glucose (UA) NEG Urine Ketones NEG Urine Blood 2+ H Urine Nitrite NEG Ur Leukocyte Esterase NEG Urine RBC 5-9 H Urine WBC 0 Ur Squamous Epith Cells NONE Urine Bacteria NONE Urine Opiates Screen Not Detected Urine Fentanyl Screen Not Detected Ur Barbiturates Screen Not Detected Valproic Acid Ur Phencyclidine Scrn Not Detected Ur Amphetamines Screen Not Detected U Benzodiazepines Scrn Not Detected Urine Cocaine Screen Not Detected U Marijuana (THC) Screen Not Detected Ethyl Alcohol COVID-19 (URI) Negative COVID-19 Clin Com See Note Influenza Type A (PCR) Influenza Type B (PCR) RSV RNA Qual (PCR) SARS-CoV-2 RNA (RT-PCR) 08/16/21 08/16/21 08/16/21 16:51 16:51 16:51 WBC 7.8 RBC 4.83 Hgb 14.8 Hct 42.1 MCV 87.2 MCH 30.6 MCHC 35.2 RDW 12.7 Plt Count 226 MPV 9.3 L Immature Gran % (Auto) 0.4 Neut % (Auto) 72.1 Lymph % (Auto) 15.1 L [place] % (Auto) 8.5 Eos % (Auto) 3.5 Baso % (Auto) 0.4 Lymph # (Auto) 1.2 [place] # (Auto) 0.7 Eos # (Auto) 0.3 Baso # (Auto) 0.0 Abs Immat Gran (auto) 0.03 Absolute Neuts (auto) 5.6 Absolute Nucleated RBC 0.000 Nucleated RBC % (auto) 0.0 Sodium 138 Potassium 3.9 Chloride 102 Carbon Dioxide 24 Anion Gap 16 BUN 16 Creatinine 1.49 H Estim Creat Clear Calc 80.2 Estimated GFR 51 Random Glucose 117 H Fasting Glucose Estimat Average Glucose Hemoglobin A1c % Calcium 10.1 D Magnesium Iron TIBC % Saturation Unsat Iron Binding Total Bilirubin 0.7 Direct Bilirubin AST 47 H D ALT 63 H Alkaline Phosphatase 56 Ammonia Lactate Dehydrogenase Total Creatine Kinase Total Protein 8.2 H D Albumin 4.9 D Triglycerides Cholesterol LDL Cholesterol, Calc HDL Cholesterol Vitamin B12 Folate TSH Urine Color Urine Appearance Urine pH Ur Specific [place] Urine Protein Urine Glucose (UA) Urine Ketones Urine Blood Urine Nitrite Ur Leukocyte Esterase Urine RBC Urine WBC Ur Squamous Epith Cells Urine Bacteria Urine Opiates Screen Urine Fentanyl Screen Ur Barbiturates Screen Valproic Acid Ur Phencyclidine Scrn Ur Amphetamines Screen U Benzodiazepines Scrn Urine Cocaine Screen U Marijuana (THC) Screen Ethyl Alcohol < 10 COVID-19 (URI) COVID-19 Clin Com Influenza Type A (PCR) Influenza Type B (PCR) RSV RNA Qual (PCR) SARS-CoV-2 RNA (RT-PCR) 08/17/21 08/17/21 08/17/21 06:42 06:42 06:42 WBC RBC Hgb Hct MCV MCH MCHC RDW Plt Count MPV Immature Gran % (Auto) Neut % (Auto) Lymph % (Auto) [place] % (Auto) Eos % (Auto) Baso % (Auto) Lymph # (Auto) [place] # (Auto) Eos # (Auto) Baso # (Auto) Abs Immat Gran (auto) Absolute Neuts (auto) Absolute Nucleated RBC Nucleated RBC % (auto) Sodium 138 Potassium 3.9 Chloride 102 Carbon Dioxide 24 Anion Gap 16 BUN 12 Creatinine 1.47 H Estim Creat Clear Calc 81.3 Estimated GFR 52 Random Glucose Fasting Glucose 112 H Estimat Average Glucose 97 Hemoglobin A1c % 5.0 Calcium 10.2 Magnesium Iron TIBC % Saturation Unsat Iron Binding Total Bilirubin 1.2 H Direct Bilirubin AST 48 H ALT 65 H Alkaline Phosphatase 56 Ammonia Lactate Dehydrogenase Total Creatine Kinase Total Protein 8.5 H Albumin 4.9 Triglycerides 133 Cholesterol 226 D LDL Cholesterol, Calc 152 HDL Cholesterol 48 D Vitamin B12 558 Folate > 20.0 TSH 1.87 Urine Color Urine Appearance Urine pH Ur Specific [place] Urine Protein Urine Glucose (UA) Urine Ketones Urine Blood Urine Nitrite Ur Leukocyte Esterase Urine RBC Urine WBC Ur Squamous Epith Cells Urine Bacteria Urine Opiates Screen Urine Fentanyl Screen Ur Barbiturates Screen Valproic Acid Ur Phencyclidine Scrn Ur Amphetamines Screen U Benzodiazepines Scrn Urine Cocaine Screen U Marijuana (THC) Screen Ethyl Alcohol COVID-19 (URI) COVID-19 Clin Com Influenza Type A (PCR) Influenza Type B (PCR) RSV RNA Qual (PCR) SARS-CoV-2 RNA (RT-PCR) 08/24/21 08/24/21 08/25/21 07:19 07:19 17:19 WBC 5.9 RBC 4.04 L Hgb 12.2 L Hct 35.1 L MCV 86.9 MCH 30.2 MCHC 34.8 RDW 12.6 Plt Count 189 MPV 9.2 L Immature Gran % (Auto) 0.3 Neut % (Auto) 68.7 Lymph % (Auto) 16.5 L [place] % (Auto) 10.8 Eos % (Auto) 3.5 Baso % (Auto) 0.2 Lymph # (Auto) 1.0 L [place] # (Auto) 0.6 Eos # (Auto) 0.2 Baso # (Auto) 0.0 Abs Immat Gran (auto) 0.02 Absolute Neuts (auto) 4.1 Absolute Nucleated RBC 0.000 Nucleated RBC % (auto) 0.0 Sodium 141 141 Potassium 3.1 L D 3.0 L Chloride 105 102 Carbon Dioxide 24 27 Anion Gap 15 15 BUN 17 H 13 Creatinine 1.68 H 1.45 H Estim Creat Clear Calc 71.2 82.5 Estimated GFR 45 53 Random Glucose Fasting Glucose 90 Estimat Average Glucose Hemoglobin A1c % Calcium 9.1 D Magnesium Iron TIBC % Saturation Unsat Iron Binding Total Bilirubin 0.7 0.5 Direct Bilirubin 0.2 AST 120 H 119 H ALT 47 H 56 H Alkaline Phosphatase 45 43 Ammonia Lactate Dehydrogenase 472 H Total Creatine Kinase 6578 H Total Protein 6.2 L D 5.8 L Albumin 3.8 D 3.5 Triglycerides Cholesterol LDL Cholesterol, Calc HDL Cholesterol Vitamin B12 Folate TSH Urine Color Urine Appearance Urine pH Ur Specific [place] Urine Protein Urine Glucose (UA) Urine Ketones Urine Blood Urine Nitrite Ur Leukocyte Esterase Urine RBC Urine WBC Ur Squamous Epith Cells Urine Bacteria Urine Opiates Screen Urine Fentanyl Screen Ur Barbiturates Screen Valproic Acid 103.1 H Ur Phencyclidine Scrn Ur Amphetamines Screen U Benzodiazepines Scrn Urine Cocaine Screen U Marijuana (THC) Screen Ethyl Alcohol COVID-19 (URI) COVID-19 Clin Com Influenza Type A (PCR) Influenza Type B (PCR) RSV RNA Qual (PCR) SARS-CoV-2 RNA (RT-PCR) 08/25/21 08/26/21 08/26/21 17:19 07:53 07:53 WBC 5.6 RBC 3.90 L Hgb 11.9 L Hct 34.4 L MCV 88.2 MCH 30.5 MCHC 34.6 RDW 12.9 Plt Count 183 MPV 9.1 L Immature Gran % (Auto) 0.5 H Neut % (Auto) 62.7 Lymph % (Auto) 18.9 L [place] % (Auto) 10.9 Eos % (Auto) 6.6 H Baso % (Auto) 0.4 Lymph # (Auto) 1.1 L [place] # (Auto) 0.6 Eos # (Auto) 0.4 Baso # (Auto) 0.0 Abs Immat Gran (auto) 0.03 Absolute Neuts (auto) 3.5 Absolute Nucleated RBC 0.000 Nucleated RBC % (auto) 0.0 Sodium 144 Cancelled Potassium 3.9 D Cancelled Chloride 105 Cancelled Carbon Dioxide 26 Cancelled Anion Gap 17 Cancelled BUN 11 Creatinine 1.26 Estim Creat Clear Calc 94.9 Estimated GFR > 60 Random Glucose 93 Fasting Glucose Estimat Average Glucose Hemoglobin A1c % Calcium 9.1 Magnesium Cancelled Iron TIBC % Saturation Unsat Iron Binding Total Bilirubin Direct Bilirubin AST ALT Alkaline Phosphatase Ammonia Lactate Dehydrogenase Total Creatine Kinase 5470 H Total Protein Albumin Triglycerides Cholesterol LDL Cholesterol, Calc HDL Cholesterol Vitamin B12 Folate TSH Urine Color Urine Appearance Urine pH Ur Specific [place] Urine Protein Urine Glucose (UA) Urine Ketones Urine Blood Urine Nitrite Ur Leukocyte Esterase Urine RBC Urine WBC Ur Squamous Epith Cells Urine Bacteria Urine Opiates Screen Urine Fentanyl Screen Ur Barbiturates Screen Valproic Acid Ur Phencyclidine Scrn Ur Amphetamines Screen U Benzodiazepines Scrn Urine Cocaine Screen U Marijuana (THC) Screen Ethyl Alcohol COVID-19 (URI) COVID-19 Clin Com Influenza Type A (PCR) Influenza Type B (PCR) RSV RNA Qual (PCR) SARS-CoV-2 RNA (RT-PCR) 08/26/21 08/26/21 08/27/21 07:53 14:30 08:19 WBC 7.0 5.0 3.8 L RBC 4.35 L 4.17 L 4.41 L Hgb 13.5 L 12.5 L 13.5 L Hct 38.5 L 37.1 L 40.3 L MCV 88.5 89.0 91.4 MCH 31.0 30.0 30.6 MCHC 35.1 33.7 33.5 RDW 12.9 12.8 13.2 Plt Count 200 191 178 MPV 9.4 9.5 9.8 Immature Gran % (Auto) 0.4 1.1 H Neut % (Auto) 86.8 H 74.0 H Lymph % (Auto) 3.9 L 11.9 L [place] % (Auto) 5.6 11.4 H Eos % (Auto) 3.2 1.1 Baso % (Auto) 0.1 0.5 Lymph # (Auto) 0.3 L 0.5 L [place] # (Auto) 0.4 0.4 Eos # (Auto) 0.2 0.0 Baso # (Auto) 0.0 0.0 Abs Immat Gran (auto) 0.03 0.04 H Absolute Neuts (auto) 6.0 2.8 Absolute Nucleated RBC 0.000 0.000 0.000 Nucleated RBC % (auto) 0.0 0.0 0.0 Sodium Potassium Chloride Carbon Dioxide Anion Gap BUN Creatinine Estim Creat Clear Calc Estimated GFR Random Glucose Fasting Glucose Estimat Average Glucose Hemoglobin A1c % Calcium Magnesium Iron TIBC % Saturation Unsat Iron Binding Total Bilirubin Direct Bilirubin AST ALT Alkaline Phosphatase Ammonia Lactate Dehydrogenase Total Creatine Kinase Total Protein Albumin Triglycerides Cholesterol LDL Cholesterol, Calc HDL Cholesterol Vitamin B12 Folate TSH Urine Color Urine Appearance Urine pH Ur Specific [place] Urine Protein Urine Glucose (UA) Urine Ketones Urine Blood Urine Nitrite Ur Leukocyte Esterase Urine RBC Urine WBC Ur Squamous Epith Cells Urine Bacteria Urine Opiates Screen Urine Fentanyl Screen Ur Barbiturates Screen Valproic Acid Ur Phencyclidine Scrn Ur Amphetamines Screen U Benzodiazepines Scrn Urine Cocaine Screen U Marijuana (THC) Screen Ethyl Alcohol COVID-19 (URI) COVID-19 Clin Com Influenza Type A (PCR) Influenza Type B (PCR) RSV RNA Qual (PCR) SARS-CoV-2 RNA (RT-PCR) 08/27/21 08/27/21 08/27/21 08:19 08:19 13:58 WBC RBC Hgb Hct MCV MCH MCHC RDW Plt Count MPV Immature Gran % (Auto) Neut % (Auto) Lymph % (Auto) [place] % (Auto) Eos % (Auto) Baso % (Auto) Lymph # (Auto) [place] # (Auto) Eos # (Auto) Baso # (Auto) Abs Immat Gran (auto) Absolute Neuts (auto) Absolute Nucleated RBC Nucleated RBC % (auto) Sodium 144 Potassium 3.8 Chloride 107 Carbon Dioxide 24 Anion Gap 17 BUN 21 H D Creatinine 1.54 H Estim Creat Clear Calc 77.6 Estimated GFR 49 Random Glucose Fasting Glucose 75 Estimat Average Glucose Hemoglobin A1c % Calcium 8.8 Magnesium Iron 24 L TIBC 245 % Saturation 10 L Unsat Iron Binding 221 Total Bilirubin 0.6 Direct Bilirubin AST 102 H ALT 73 H Alkaline Phosphatase 47 Ammonia 45 Lactate Dehydrogenase Total Creatine Kinase 3624 H Total Protein 6.0 L Albumin 3.5 Triglycerides Cholesterol LDL Cholesterol, Calc HDL Cholesterol Vitamin B12 Folate TSH Urine Color Urine Appearance Urine pH Ur Specific [place] Urine Protein Urine Glucose (UA) Urine Ketones Urine Blood Urine Nitrite Ur Leukocyte Esterase Urine RBC Urine WBC Ur Squamous Epith Cells Urine Bacteria Urine Opiates Screen Urine Fentanyl Screen Ur Barbiturates Screen Valproic Acid Ur Phencyclidine Scrn Ur Amphetamines Screen U Benzodiazepines Scrn Urine Cocaine Screen U Marijuana (THC) Screen Ethyl Alcohol COVID-19 (URI) COVID-19 Clin Com Influenza Type A (PCR) NEGATIVE Influenza Type B (PCR) NEGATIVE RSV RNA Qual (PCR) NEGATIVE SARS-CoV-2 RNA (RT-PCR) NEGATIVE 08/28/21 08/29/21 08/29/21 08:59 07:10 07:10 WBC 7.0 RBC 4.18 L Hgb 12.6 L Hct 37.2 L MCV 89.0 MCH 30.1 MCHC 33.9 RDW 13.2 Plt Count 204 MPV 8.9 L Immature Gran % (Auto) 1.0 H Neut % (Auto) 62.8 Lymph % (Auto) 16.3 L [place] % (Auto) 12.9 H Eos % (Auto) 6.7 H Baso % (Auto) 0.3 Lymph # (Auto) 1.1 L [place] # (Auto) 0.9 Eos # (Auto) 0.5 H Baso # (Auto) 0.0 Abs Immat Gran (auto) 0.07 H Absolute Neuts (auto) 4.4 Absolute Nucleated RBC 0.000 Nucleated RBC % (auto) 0.0 Sodium 144 Potassium 3.4 Chloride 107 Carbon Dioxide 29 Anion Gap 11 L BUN 13 Creatinine 1.29 Estim Creat Clear Calc 92.7 Estimated GFR > 60 Random Glucose 107 Fasting Glucose Estimat Average Glucose 94 Hemoglobin A1c % 4.9 Calcium 8.5 Magnesium 1.8 Iron TIBC % Saturation Unsat Iron Binding Total Bilirubin 0.6 Direct Bilirubin AST 69 H ALT 66 H Alkaline Phosphatase 44 Ammonia Lactate Dehydrogenase Total Creatine Kinase 2202 H D Total Protein 5.8 L Albumin 3.3 L Triglycerides Cholesterol LDL Cholesterol, Calc HDL Cholesterol Vitamin B12 Folate TSH Urine Color Urine Appearance Urine pH Ur Specific [place] Urine Protein Urine Glucose (UA) Urine Ketones Urine Blood Urine Nitrite Ur Leukocyte Esterase Urine RBC Urine WBC Ur Squamous Epith Cells Urine Bacteria Urine Opiates Screen Urine Fentanyl Screen Ur Barbiturates Screen Valproic Acid Ur Phencyclidine Scrn Ur Amphetamines Screen U Benzodiazepines Scrn Urine Cocaine Screen U Marijuana (THC) Screen Ethyl Alcohol COVID-19 (URI) COVID-19 Clin Com Influenza Type A (PCR) Influenza Type B (PCR) RSV RNA Qual (PCR) SARS-CoV-2 RNA (RT-PCR) Airway Mallampati Class: II TM Dist: >3cm Neck ROM: Full Heart: rrr Lungs: cta Assessment and Plan Assessment Anesthesia Assessment: Anesthesia Plan Discussed and Chart Reviewed Final Anesthetic Review Family History of Problems with Anesthesia: No History of Problems with Anesthesia: No NPO: Yes ASA Class: III Final Preanesthetic Review: No Changes in Pt Med Stat, Meds/Allgs Chart Reviewed and Consent Obtained/Reviewed Patient Risk: Intermediate Procedure Risk: Intermediate Anesthetic Plan Anesthetic Plan: GA Disposition: Standard PACU
--- NOTE | 2021-08-30 07:09 | MHC.SHP ---
Pre-Procedural Eval Section A Date of Service: 08/30/21 The patient is an INPATIENT: Yes Changes since office visit: Yes Cold of Flu in the past 2 weeks, Yes New Medical Problems, Yes Changes in Medication and Yes Patient answered all questions The History & Physical has been completed within 30 days and I have reviewed it.: Yes Section B Chief Complaint: joleen Allergies: Allergies Allergy/AdvReac Type Severity Reaction Status Date / Time haloperidol [From Haldol] Allergy Unknown Verified 07/22/20 03:38 Plan I have reviewed the history and physical and performed a pertinent physical examination on my patient. No changes have occurred unless specified.
--- NOTE | 2021-08-30 07:22 | HO.ECTPROC ---
ECT Procedure Note Diagnosis/Treatment Date of Service: 08/30/21 Diagnosis: Bipolar disorder Previous ECT Date: 08/28/21 Interval Clinical Notes: The patient is still manic and psychotic, he needed several hospital police officers around him for safety. ECT Settings Device: THYMATRON DGx Electrode Placement: Bitemporal Program/Pulse Width: 0.50 Energy Percent: 100 Seizure Duration By EEG (in seconds): 52 By Motor Observation (in seconds): 29 Medications Administration General Anesthetic: Etomidate Muscle Relaxant: Succinylcholine Ancillary Medications Analgesics: Torodol - Pre ECT Anti-emetics: Zofran - Pre ECT Airway Management Airway Management: Bag Mask Ventilation Treatment Recommendations No Changes Recommended: No change Pt Tolerated Procedure w/o Issue: Yes
[2021-08-30] MEDS: Acetaminophen 325 MG TABLET 975 MG PO (08:50)
[2021-08-30] MEDS: Bisoprolol Fumarate 5 MG TABLET 10 MG PO (09:16)
[2021-08-30] MEDS: amLODIPine Besylate 10 MG TABLET PO (09:16)
[2021-08-30] MEDS: Multivitamin TABLET 1 TAB PO (09:16)
[2021-08-30] MEDS: Nystatin Oral Susp 500,000 UNIT/5 ML ORAL.SUSP 400000 UNIT BUCCAL ×4 (09:17→21:02)
[2021-08-30] MEDS: diazePAM 5 MG TABLET PO (18:54)
[2021-08-30] MEDS: diazePAM 5 MG TABLET 10 MG PO (18:54)
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
[2021-08-31] MEDS: Bisoprolol Fumarate 5 MG TABLET 10 MG PO (07:35)
[2021-08-31] MEDS: amLODIPine Besylate 10 MG TABLET PO (07:35)
[2021-08-31] MEDS: Multivitamin TABLET 1 TAB PO (07:35)
[2021-08-31] MEDS: QUEtiapine Fumarate 100 MG TABLET PO ×3 (07:36→18:16)
[2021-08-31] MEDS: Nystatin Oral Susp 500,000 UNIT/5 ML ORAL.SUSP 400000 UNIT BUCCAL ×4 (07:36→21:39)
[2021-08-31 07:48] VITALS: BP 122/74; PULSE 107; RESP 20; TEMP 36.4; O2SAT 97
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
[2021-08-31 13:46] VITALS: BP 127/84; PULSE 94
[2021-08-31 16:05] VITALS: BP 121/65; PULSE 82; TEMP 37.2
[2021-08-31] MEDS: diazePAM 5 MG TABLET PO ×2 (17:16→21:38)
[2021-08-31] MEDS: diazePAM 5 MG TABLET 10 MG PO (18:15)
[2021-08-31] MEDS: traZODone HCL 50 MG TABLET PO (21:39)
[2021-09-01] MEDS: QUEtiapine Fumarate 100 MG TABLET PO ×6 (04:22→23:43)
[2021-09-01] MEDS: diazePAM 5 MG TABLET 10 MG PO ×2 (04:22→21:24)
[2021-09-01] MEDS: traZODone HCL 50 MG TABLET PO ×2 (04:24→21:24)
[2021-09-01] MEDS: Bisoprolol Fumarate 5 MG TABLET 10 MG PO (07:35)
[2021-09-01] MEDS: Nystatin Oral Susp 500,000 UNIT/5 ML ORAL.SUSP 400000 UNIT BUCCAL ×3 (07:35→21:26)
[2021-09-01] MEDS: Multivitamin TABLET 1 TAB PO (07:36)
[2021-09-01] MEDS: amLODIPine Besylate 10 MG TABLET PO (07:36)
[2021-09-01 07:45] VITALS: BP 129/77; PULSE 111; RESP 20; TEMP 36.4; O2SAT 97
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
[2021-09-01 13:41] VITALS: BP 126/69; PULSE 87
[2021-09-01] MEDS: diazePAM 5 MG TABLET PO ×2 (15:37→21:25)
[2021-09-01 18:55] VITALS: RESP 20
[2021-09-02] VITALS (16 sets, daily range): BP systolic 104–137; BP diastolic 57–84; PULSE 69–105; RESP 12–22; TEMP 36.2–36.9; O2SAT 92–96
[2021-09-02] MEDS: diazePAM 5 MG TABLET PO ×5 (02:14→23:42)
[2021-09-02] MEDS: traZODone HCL 50 MG TABLET PO (02:14)
--- NOTE | 2021-09-02 02:21 | PC.NURSE ---
0215 medications given to patient as he continues to be awake with psychomotor agitation. he continues with impulsive behaviors such as pulling up baseboards, stripping off clothing then putting them back on, leaning backwards requiring his 2:1 staffing to make sure he lands on his bed safely, pulling at the medical bed in attempts to pull apart. when taking medications impulsively pulled at t/w hair (this content writer not harmed) but it is another example of his impulsive behaviors. patient continues to display lack of restraint, impulsivity, and poor ability to maintain his own personal safety. given medications in 1 teaspoon of martha bassett as it is noted that he will be receiving ECT in the AM.
--- NOTE | 2021-09-02 02:46 | PC.NURSE ---
speech is nonsensical and yells out at times. exhibits slurred, garbled speech. staff must listen for clarity and ascertain what it is the patient may be seeking.
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
--- NOTE | 2021-09-02 06:43 | HO.ANESPROP2 ---
[facility] Active Problems Active Problems: All Active Problems (Updated 08/20/21 @ 17:39 by Fredy Caldera DO) Physical exam (Acute) Bipolar affective disorder, mixed, severe, with psychotic behavior (Acute) Bipolar affective, manic, full remis (Acute) Hypertension (Acute) Hyperlipidemia (Acute) Dyskinesia, tardive (Acute) Manic behavior (Acute) Rash (Acute) Past Medical History Medical History HTN (hypertension) Kidney problem Family History Family history of problems with anesthesia: No Surgical History History of Problems with Anesthesia: No Social History Social History Household Members: Spouse Household Members Other:: Housing: House Do you presently have visiting nurse or other home services: No Unable to assess alcohol history related to: Unknown Patient Tobacco Use Status: Tobacco use Unknown Second Hand Smoke Exposure: No Use of substances other than those prescribed or required for medical reasons: Unknown Currently Displaying Signs/Symptoms of Drug Intoxication Withdrawal: No Any prior treatment program specific to substance use: No Advance Directives: No Advance Directives Information Provided: No Advance Directives on File: No Healthcare Proxy: Yes Guardian: No Do you have thoughts of harming others: None Do you have a plan to hurt others: No Plan Recently lost weight without trying: Unsure How much weight loss: Unsure service: No Sexual orientation: Straight/Heterosexual Meds Allergies Allergy/AdvReac Type Severity Reaction Status Date / Time haloperidol [From Haldol] Allergy Unknown Verified 07/22/20 03:38 Active Medications: Current Medications Acetaminophen (Acetaminophen 325 Mg Tablet) 975 mg PO QID PRN PRN Reason: Mild Pain (Scale Score 1-4) Last Admin: 08/30/21 08:50 Dose: 975 mg Documented by: Al Hydroxide/Mg Hydroxide (Magnesium Hydrox/Alum Hydrox 30 Ml Oral.Susp) 30 ml PO Q6H PRN PRN Reason: Heartburn/Nausea Amlodipine Besylate (Amlodipine Besylate 10 Mg Tablet) 10 mg PO DAILY CONRAD; Protocol Last Admin: 09/01/21 07:36 Dose: 10 mg Documented by: Aripiprazole (Aripiprazole Er 400 Mg Suser.Syr) 400 mg IM Q28D FOR[facility], [facility]1983 Last Admin: 08/20/21 14:09 Dose: 400 mg Documented by: Bisoprolol Fumarate (Bisoprolol Fumarate 5 Mg Tablet) 10 mg PO DAILY FOR[facility]LY [facility], [facility]1983 Last Admin: 09/01/21 07:35 Dose: 10 mg Documented by: Diazepam (Diazepam 5 Mg Tablet) 5 mg PO TID PRN PRN Reason: anxiety/restlessness Last Admin: 09/02/21 02:14 Dose: 5 mg Documented by: Diazepam (Diazepam 5 Mg Tablet) 10 mg PO BEDTIME FOR[facility]LY [facility], [facility] Last Admin: 09/01/21 21:24 Dose: 10 mg Documented by: Loperamide HCl (Loperamide Hcl 2 Mg Capsule) 2 mg PO Q4H PRN PRN Reason: Diarrhea Last Admin: 08/27/21 12:31 Dose: 2 mg Documented by: Magnesium Hydroxide (Milk Of Magnesia 30 Ml Oral.Susp) 30 ml PO DAILY PRN PRN Reason: Constipation Multivitamins/Vitamin C (Multivitamin Tablet) 1 tab PO DAILY [facility]LY [facility], [facility] Last Admin: 09/01/21 07:36 Dose: 1 tab Documented by: Nystatin (Nystatin Oral Susp 500,000 Unit/5 Ml Oral.Susp) 400,000 unit BUCCAL QID FORMERLY [facility], [facility]; Protocol Last Admin: 09/01/21 21:26 Dose: 400,000 unit Documented by: Quetiapine Fumarate (Quetiapine Fumarate 100 Mg Tablet) 100 mg PO Q4H PRN PRN Reason: Psychosis Last Admin: 09/01/21 23:43 Dose: 100 mg Documented by: Quetiapine Fumarate (Quetiapine Fumarate 100 Mg Tablet) 100 mg PO TID [facility], [facility] Last Admin: 09/01/21 21:24 Dose: 100 mg Documented by: Trazodone HCl (Trazodone Hcl 50 Mg Tablet) 50 mg PO BEDTIME PRN PRN Reason: Insomnia Last Admin: 09/02/21 02:14 Dose: 50 mg Documented by: Home Medications Medication Instructions Recorded Confirmed Last Taken Type acetaminophen 500 mg tablet 1,000 mg PO QID PRN 08/16/21 08/16/21 Unknown History (Tylenol Extra Strength) amlodipine 10 mg tablet 1 tab PO DAILY 08/16/21 08/16/21 Unknown History aripiprazole 400 mg intramuscular 400 mg IM QMONTH 08/16/21 08/16/21 Unknown History suspension,extended release (Abilify Maintena) bisoprolol 10 1 tab PO DAILY 08/16/21 08/16/21 Unknown History mg-hydrochlorothiazide 6.25 mg tablet multivitamin 1 tab PO DAILY 08/16/21 08/16/21 Unknown History vitamin B complex 1 tab PO DAILY 08/16/21 08/16/21 Unknown History Exam Exam Date and Time: September 02, 2021 0643 Height,Weight and Vital Signs: Height 6 ft 2 in Weight 101 kg Last Vital Signs Temp 97.8 F 09/02/21 06:38 Pulse 87 09/02/21 06:38 Resp 18 09/02/21 06:38 BP 120/76 09/02/21 06:38 Pulse Ox 96 09/02/21 06:38 Pertinent Lab Results Pertinent Lab Results: Laboratory Tests 08/16/21 08/16/21 08/16/21 16:05 16:42 16:42 WBC RBC Hgb Hct MCV MCH MCHC RDW Plt Count MPV Immature Gran % (Auto) Neut % (Auto) Lymph % (Auto) [place] % (Auto) Eos % (Auto) Baso % (Auto) Lymph # (Auto) [place] # (Auto) Eos # (Auto) Baso # (Auto) Abs Immat Gran (auto) Absolute Neuts (auto) Absolute Nucleated RBC Nucleated RBC % (auto) Sodium Potassium Chloride Carbon Dioxide Anion Gap BUN Creatinine Estim Creat Clear Calc Estimated GFR Random Glucose Fasting Glucose Estimat Average Glucose Hemoglobin A1c % Calcium Magnesium Iron TIBC % Saturation Unsat Iron Binding Total Bilirubin Direct Bilirubin AST ALT Alkaline Phosphatase Ammonia Lactate Dehydrogenase Total Creatine Kinase Total Protein Albumin Triglycerides Cholesterol LDL Cholesterol, Calc HDL Cholesterol Vitamin B12 Folate TSH Urine Color YELLOW Urine Appearance CLEAR Urine pH 6.0 Ur Specific [place] 1.010 Urine Protein 2+ H Urine Glucose (UA) NEG Urine Ketones NEG Urine Blood 2+ H Urine Nitrite NEG Ur Leukocyte Esterase NEG Urine RBC 5-9 H Urine WBC 0 Ur Squamous Epith Cells NONE Urine Bacteria NONE Urine Opiates Screen Not Detected Urine Fentanyl Screen Not Detected Ur Barbiturates Screen Not Detected Valproic Acid Ur Phencyclidine Scrn Not Detected Ur Amphetamines Screen Not Detected U Benzodiazepines Scrn Not Detected Urine Cocaine Screen Not Detected U Marijuana (THC) Screen Not Detected Ethyl Alcohol COVID-19 (URI) Negative COVID-19 Clin Com See Note Influenza Type A (PCR) Influenza Type B (PCR) RSV RNA Qual (PCR) SARS-CoV-2 RNA (RT-PCR) 08/16/21 08/16/21 08/16/21 16:51 16:51 16:51 WBC 7.8 RBC 4.83 Hgb 14.8 Hct 42.1 MCV 87.2 MCH 30.6 MCHC 35.2 RDW 12.7 Plt Count 226 MPV 9.3 L Immature Gran % (Auto) 0.4 Neut % (Auto) 72.1 Lymph % (Auto) 15.1 L [place] % (Auto) 8.5 Eos % (Auto) 3.5 Baso % (Auto) 0.4 Lymph # (Auto) 1.2 [place] # (Auto) 0.7 Eos # (Auto) 0.3 Baso # (Auto) 0.0 Abs Immat Gran (auto) 0.03 Absolute Neuts (auto) 5.6 Absolute Nucleated RBC 0.000 Nucleated RBC % (auto) 0.0 Sodium 138 Potassium 3.9 Chloride 102 Carbon Dioxide 24 Anion Gap 16 BUN 16 Creatinine 1.49 H Estim Creat Clear Calc 80.2 Estimated GFR 51 Random Glucose 117 H Fasting Glucose Estimat Average Glucose Hemoglobin A1c % Calcium 10.1 D Magnesium Iron TIBC % Saturation Unsat Iron Binding Total Bilirubin 0.7 Direct Bilirubin AST 47 H D ALT 63 H Alkaline Phosphatase 56 Ammonia Lactate Dehydrogenase Total Creatine Kinase Total Protein 8.2 H D Albumin 4.9 D Triglycerides Cholesterol LDL Cholesterol, Calc HDL Cholesterol Vitamin B12 Folate TSH Urine Color Urine Appearance Urine pH Ur Specific [place] Urine Protein Urine Glucose (UA) Urine Ketones Urine Blood Urine Nitrite Ur Leukocyte Esterase Urine RBC Urine WBC Ur Squamous Epith Cells Urine Bacteria Urine Opiates Screen Urine Fentanyl Screen Ur Barbiturates Screen Valproic Acid Ur Phencyclidine Scrn Ur Amphetamines Screen U Benzodiazepines Scrn Urine Cocaine Screen U Marijuana (THC) Screen Ethyl Alcohol < 10 COVID-19 (URI) COVID-19 Clin Com Influenza Type A (PCR) Influenza Type B (PCR) RSV RNA Qual (PCR) SARS-CoV-2 RNA (RT-PCR) 08/17/21 08/17/21 08/17/21 06:42 06:42 06:42 WBC RBC Hgb Hct MCV MCH MCHC RDW Plt Count MPV Immature Gran % (Auto) Neut % (Auto) Lymph % (Auto) [place] % (Auto) Eos % (Auto) Baso % (Auto) Lymph # (Auto) [place] # (Auto) Eos # (Auto) Baso # (Auto) Abs Immat Gran (auto) Absolute Neuts (auto) Absolute Nucleated RBC Nucleated RBC % (auto) Sodium 138 Potassium 3.9 Chloride 102 Carbon Dioxide 24 Anion Gap 16 BUN 12 Creatinine 1.47 H Estim Creat Clear Calc 81.3 Estimated GFR 52 Random Glucose Fasting Glucose 112 H Estimat Average Glucose 97 Hemoglobin A1c % 5.0 Calcium 10.2 Magnesium Iron TIBC % Saturation Unsat Iron Binding Total Bilirubin 1.2 H Direct Bilirubin AST 48 H ALT 65 H Alkaline Phosphatase 56 Ammonia Lactate Dehydrogenase Total Creatine Kinase Total Protein 8.5 H Albumin 4.9 Triglycerides 133 Cholesterol 226 D LDL Cholesterol, Calc 152 HDL Cholesterol 48 D Vitamin B12 558 Folate > 20.0 TSH 1.87 Urine Color Urine Appearance Urine pH Ur Specific [place] Urine Protein Urine Glucose (UA) Urine Ketones Urine Blood Urine Nitrite Ur Leukocyte Esterase Urine RBC Urine WBC Ur Squamous Epith Cells Urine Bacteria Urine Opiates Screen Urine Fentanyl Screen Ur Barbiturates Screen Valproic Acid Ur Phencyclidine Scrn Ur Amphetamines Screen U Benzodiazepines Scrn Urine Cocaine Screen U Marijuana (THC) Screen Ethyl Alcohol COVID-19 (URI) COVID-19 Clin Com Influenza Type A (PCR) Influenza Type B (PCR) RSV RNA Qual (PCR) SARS-CoV-2 RNA (RT-PCR) 08/24/21 08/24/21 08/25/21 07:19 07:19 17:19 WBC 5.9 RBC 4.04 L Hgb 12.2 L Hct 35.1 L MCV 86.9 MCH 30.2 MCHC 34.8 RDW 12.6 Plt Count 189 MPV 9.2 L Immature Gran % (Auto) 0.3 Neut % (Auto) 68.7 Lymph % (Auto) 16.5 L [place] % (Auto) 10.8 Eos % (Auto) 3.5 Baso % (Auto) 0.2 Lymph # (Auto) 1.0 L [place] # (Auto) 0.6 Eos # (Auto) 0.2 Baso # (Auto) 0.0 Abs Immat Gran (auto) 0.02 Absolute Neuts (auto) 4.1 Absolute Nucleated RBC 0.000 Nucleated RBC % (auto) 0.0 Sodium 141 141 Potassium 3.1 L D 3.0 L Chloride 105 102 Carbon Dioxide 24 27 Anion Gap 15 15 BUN 17 H 13 Creatinine 1.68 H 1.45 H Estim Creat Clear Calc 71.2 82.5 Estimated GFR 45 53 Random Glucose Fasting Glucose 90 Estimat Average Glucose Hemoglobin A1c % Calcium 9.1 D Magnesium Iron TIBC % Saturation Unsat Iron Binding Total Bilirubin 0.7 0.5 Direct Bilirubin 0.2 AST 120 H 119 H ALT 47 H 56 H Alkaline Phosphatase 45 43 Ammonia Lactate Dehydrogenase 472 H Total Creatine Kinase 6578 H Total Protein 6.2 L D 5.8 L Albumin 3.8 D 3.5 Triglycerides Cholesterol LDL Cholesterol, Calc HDL Cholesterol Vitamin B12 Folate TSH Urine Color Urine Appearance Urine pH Ur Specific [place] Urine Protein Urine Glucose (UA) Urine Ketones Urine Blood Urine Nitrite Ur Leukocyte Esterase Urine RBC Urine WBC Ur Squamous Epith Cells Urine Bacteria Urine Opiates Screen Urine Fentanyl Screen Ur Barbiturates Screen Valproic Acid 103.1 H Ur Phencyclidine Scrn Ur Amphetamines Screen U Benzodiazepines Scrn Urine Cocaine Screen U Marijuana (THC) Screen Ethyl Alcohol COVID-19 (URI) COVID-19 Clin Com Influenza Type A (PCR) Influenza Type B (PCR) RSV RNA Qual (PCR) SARS-CoV-2 RNA (RT-PCR) 08/25/21 08/26/21 08/26/21 17:19 07:53 07:53 WBC 5.6 RBC 3.90 L Hgb 11.9 L Hct 34.4 L MCV 88.2 MCH 30.5 MCHC 34.6 RDW 12.9 Plt Count 183 MPV 9.1 L Immature Gran % (Auto) 0.5 H Neut % (Auto) 62.7 Lymph % (Auto) 18.9 L [place] % (Auto) 10.9 Eos % (Auto) 6.6 H Baso % (Auto) 0.4 Lymph # (Auto) 1.1 L [place] # (Auto) 0.6 Eos # (Auto) 0.4 Baso # (Auto) 0.0 Abs Immat Gran (auto) 0.03 Absolute Neuts (auto) 3.5 Absolute Nucleated RBC 0.000 Nucleated RBC % (auto) 0.0 Sodium 144 Cancelled Potassium 3.9 D Cancelled Chloride 105 Cancelled Carbon Dioxide 26 Cancelled Anion Gap 17 Cancelled BUN 11 Creatinine 1.26 Estim Creat Clear Calc 94.9 Estimated GFR > 60 Random Glucose 93 Fasting Glucose Estimat Average Glucose Hemoglobin A1c % Calcium 9.1 Magnesium Cancelled Iron TIBC % Saturation Unsat Iron Binding Total Bilirubin Direct Bilirubin AST ALT Alkaline Phosphatase Ammonia Lactate Dehydrogenase Total Creatine Kinase 5470 H Total Protein Albumin Triglycerides Cholesterol LDL Cholesterol, Calc HDL Cholesterol Vitamin B12 Folate TSH Urine Color Urine Appearance Urine pH Ur Specific [place] Urine Protein Urine Glucose (UA) Urine Ketones Urine Blood Urine Nitrite Ur Leukocyte Esterase Urine RBC Urine WBC Ur Squamous Epith Cells Urine Bacteria Urine Opiates Screen Urine Fentanyl Screen Ur Barbiturates Screen Valproic Acid Ur Phencyclidine Scrn Ur Amphetamines Screen U Benzodiazepines Scrn Urine Cocaine Screen U Marijuana (THC) Screen Ethyl Alcohol COVID-19 (URI) COVID-19 Clin Com Influenza Type A (PCR) Influenza Type B (PCR) RSV RNA Qual (PCR) SARS-CoV-2 RNA (RT-PCR) 08/26/21 08/26/21 08/27/21 07:53 14:30 08:19 WBC 7.0 5.0 3.8 L RBC 4.35 L 4.17 L 4.41 L Hgb 13.5 L 12.5 L 13.5 L Hct 38.5 L 37.1 L 40.3 L MCV 88.5 89.0 91.4 MCH 31.0 30.0 30.6 MCHC 35.1 33.7 33.5 RDW 12.9 12.8 13.2 Plt Count 200 191 178 MPV 9.4 9.5 9.8 Immature Gran % (Auto) 0.4 1.1 H Neut % (Auto) 86.8 H 74.0 H Lymph % (Auto) 3.9 L 11.9 L [place] % (Auto) 5.6 11.4 H Eos % (Auto) 3.2 1.1 Baso % (Auto) 0.1 0.5 Lymph # (Auto) 0.3 L 0.5 L [place] # (Auto) 0.4 0.4 Eos # (Auto) 0.2 0.0 Baso # (Auto) 0.0 0.0 Abs Immat Gran (auto) 0.03 0.04 H Absolute Neuts (auto) 6.0 2.8 Absolute Nucleated RBC 0.000 0.000 0.000 Nucleated RBC % (auto) 0.0 0.0 0.0 Sodium Potassium Chloride Carbon Dioxide Anion Gap BUN Creatinine Estim Creat Clear Calc Estimated GFR Random Glucose Fasting Glucose Estimat Average Glucose Hemoglobin A1c % Calcium Magnesium Iron TIBC % Saturation Unsat Iron Binding Total Bilirubin Direct Bilirubin AST ALT Alkaline Phosphatase Ammonia Lactate Dehydrogenase Total Creatine Kinase Total Protein Albumin Triglycerides Cholesterol LDL Cholesterol, Calc HDL Cholesterol Vitamin B12 Folate TSH Urine Color Urine Appearance Urine pH Ur Specific [place] Urine Protein Urine Glucose (UA) Urine Ketones Urine Blood Urine Nitrite Ur Leukocyte Esterase Urine RBC Urine WBC Ur Squamous Epith Cells Urine Bacteria Urine Opiates Screen Urine Fentanyl Screen Ur Barbiturates Screen Valproic Acid Ur Phencyclidine Scrn Ur Amphetamines Screen U Benzodiazepines Scrn Urine Cocaine Screen U Marijuana (THC) Screen Ethyl Alcohol COVID-19 (URI) COVID-19 Clin Com Influenza Type A (PCR) Influenza Type B (PCR) RSV RNA Qual (PCR) SARS-CoV-2 RNA (RT-PCR) 08/27/21 08/27/21 08/27/21 08:19 08:19 13:58 WBC RBC Hgb Hct MCV MCH MCHC RDW Plt Count MPV Immature Gran % (Auto) Neut % (Auto) Lymph % (Auto) [place] % (Auto) Eos % (Auto) Baso % (Auto) Lymph # (Auto) [place] # (Auto) Eos # (Auto) Baso # (Auto) Abs Immat Gran (auto) Absolute Neuts (auto) Absolute Nucleated RBC Nucleated RBC % (auto) Sodium 144 Potassium 3.8 Chloride 107 Carbon Dioxide 24 Anion Gap 17 BUN 21 H D Creatinine 1.54 H Estim Creat Clear Calc 77.6 Estimated GFR 49 Random Glucose Fasting Glucose 75 Estimat Average Glucose Hemoglobin A1c % Calcium 8.8 Magnesium Iron 24 L TIBC 245 % Saturation 10 L Unsat Iron Binding 221 Total Bilirubin 0.6 Direct Bilirubin AST 102 H ALT 73 H Alkaline Phosphatase 47 Ammonia 45 Lactate Dehydrogenase Total Creatine Kinase 3624 H Total Protein 6.0 L Albumin 3.5 Triglycerides Cholesterol LDL Cholesterol, Calc HDL Cholesterol Vitamin B12 Folate TSH Urine Color Urine Appearance Urine pH Ur Specific [place] Urine Protein Urine Glucose (UA) Urine Ketones Urine Blood Urine Nitrite Ur Leukocyte Esterase Urine RBC Urine WBC Ur Squamous Epith Cells Urine Bacteria Urine Opiates Screen Urine Fentanyl Screen Ur Barbiturates Screen Valproic Acid Ur Phencyclidine Scrn Ur Amphetamines Screen U Benzodiazepines Scrn Urine Cocaine Screen U Marijuana (THC) Screen Ethyl Alcohol COVID-19 (URI) COVID-19 Clin Com Influenza Type A (PCR) NEGATIVE Influenza Type B (PCR) NEGATIVE RSV RNA Qual (PCR) NEGATIVE SARS-CoV-2 RNA (RT-PCR) NEGATIVE 08/28/21 08/29/21 08/29/21 08:59 07:10 07:10 WBC 7.0 RBC 4.18 L Hgb 12.6 L Hct 37.2 L MCV 89.0 MCH 30.1 MCHC 33.9 RDW 13.2 Plt Count 204 MPV 8.9 L Immature Gran % (Auto) 1.0 H Neut % (Auto) 62.8 Lymph % (Auto) 16.3 L [place] % (Auto) 12.9 H Eos % (Auto) 6.7 H Baso % (Auto) 0.3 Lymph # (Auto) 1.1 L [place] # (Auto) 0.9 Eos # (Auto) 0.5 H Baso # (Auto) 0.0 Abs Immat Gran (auto) 0.07 H Absolute Neuts (auto) 4.4 Absolute Nucleated RBC 0.000 Nucleated RBC % (auto) 0.0 Sodium 144 Potassium 3.4 Chloride 107 Carbon Dioxide 29 Anion Gap 11 L BUN 13 Creatinine 1.29 Estim Creat Clear Calc 92.7 Estimated GFR > 60 Random Glucose 107 Fasting Glucose Estimat Average Glucose 94 Hemoglobin A1c % 4.9 Calcium 8.5 Magnesium 1.8 Iron TIBC % Saturation Unsat Iron Binding Total Bilirubin 0.6 Direct Bilirubin AST 69 H ALT 66 H Alkaline Phosphatase 44 Ammonia Lactate Dehydrogenase Total Creatine Kinase 2202 H D Total Protein 5.8 L Albumin 3.3 L Triglycerides Cholesterol LDL Cholesterol, Calc HDL Cholesterol Vitamin B12 Folate TSH Urine Color Urine Appearance Urine pH Ur Specific [place] Urine Protein Urine Glucose (UA) Urine Ketones Urine Blood Urine Nitrite Ur Leukocyte Esterase Urine RBC Urine WBC Ur Squamous Epith Cells Urine Bacteria Urine Opiates Screen Urine Fentanyl Screen Ur Barbiturates Screen Valproic Acid Ur Phencyclidine Scrn Ur Amphetamines Screen U Benzodiazepines Scrn Urine Cocaine Screen U Marijuana (THC) Screen Ethyl Alcohol COVID-19 (URI) COVID-19 Clin Com Influenza Type A (PCR) Influenza Type B (PCR) RSV RNA Qual (PCR) SARS-CoV-2 RNA (RT-PCR) Airway Mallampati Class: II TM Dist: >3cm Neck ROM: Full Heart: rrr Lungs: cta Assessment and Plan Assessment Anesthesia Assessment: Anesthesia Plan Discussed and Chart Reviewed Final Anesthetic Review Family History of Problems with Anesthesia: No History of Problems with Anesthesia: No NPO: Yes ASA Class: III Final Preanesthetic Review: No Changes in Pt Med Stat, Meds/Allgs Chart Reviewed and Consent Obtained/Reviewed Patient Risk: Intermediate Procedure Risk: Intermediate Anesthetic Plan Anesthetic Plan: GA Disposition: Standard PACU
--- NOTE | 2021-09-02 07:04 | MHC.SHP ---
Pre-Procedural Eval Section A Date of Service: 09/02/21 The patient is an INPATIENT: Yes Changes since office visit: Yes Changes in Medication; No Cold of Flu in the past 2 weeks, No New Medical Problems and No Patient answered all questions The History & Physical has been completed within 30 days and I have reviewed it.: Yes Section B Chief Complaint: joleen Allergies: Allergies Allergy/AdvReac Type Severity Reaction Status Date / Time haloperidol [From Haldol] Allergy Unknown Verified 07/22/20 03:38 Plan I have reviewed the history and physical and performed a pertinent physical examination on my patient. No changes have occurred unless specified.
--- NOTE | 2021-09-02 07:05 | HO.ECTPROC ---
ECT Procedure Note Diagnosis/Treatment Date of Service: 09/02/21 Diagnosis: Bipolar disorder Previous ECT Date: 08/30/21 Current Treatment Number: 5 Treatment: Series Interval Clinical Notes: has been agitated remains manic no significant side effects ECT Settings Device: THYMATRON DGx Electrode Placement: Bitemporal Program/Pulse Width: 0.50 Energy Percent: 100 Seizure Duration By EEG (in seconds): 63 Medications Administration General Anesthetic: Etomidate (14) Muscle Relaxant: Succinylcholine (100) Ancillary Medications Miscillaneous Medications: Flumazenil Airway Management Airway Management: Bag Mask Ventilation Treatment Recommendations No Changes Recommended: No change Pt Tolerated Procedure w/o Issue: Yes
[2021-09-02] MEDS: amLODIPine Besylate 10 MG TABLET PO (10:40)
[2021-09-02] MEDS: Multivitamin TABLET 1 TAB PO (10:40)
[2021-09-02] MEDS: Bisoprolol Fumarate 5 MG TABLET 10 MG PO (10:40)
[2021-09-02] MEDS: Nystatin Oral Susp 500,000 UNIT/5 ML ORAL.SUSP 400000 UNIT BUCCAL ×4 (10:41→19:34)
[2021-09-02] MEDS: QUEtiapine Fumarate 100 MG TABLET PO ×3 (10:42→23:42)
[2021-09-02] MEDS: QUEtiapine Fumarate 200 MG TABLET PO ×3 (10:43→19:34)
[2021-09-02] MEDS: diazePAM 5 MG TABLET 10 MG PO (19:34)
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
[2021-09-03] MEDS: QUEtiapine Fumarate 100 MG TABLET PO (03:43)
[2021-09-03 09:00] VITALS: PULSE 94; RESP 22; TEMP 36.4; O2SAT 96
[2021-09-03] MEDS: amLODIPine Besylate 10 MG TABLET PO (09:01)
[2021-09-03] MEDS: Multivitamin TABLET 1 TAB PO (09:01)
[2021-09-03] MEDS: Bisoprolol Fumarate 5 MG TABLET 10 MG PO (09:01)
[2021-09-03] MEDS: Nystatin Oral Susp 500,000 UNIT/5 ML ORAL.SUSP 400000 UNIT BUCCAL ×3 (09:01→20:55)
[2021-09-03] MEDS: QUEtiapine Fumarate 200 MG TABLET PO (09:01)
[2021-09-03] MEDS: OLANZapine 10 MG TABLET PO ×2 (10:03→20:57)
[2021-09-03] MEDS: clonazePAM 1 MG TABLET PO ×3 (10:37→20:57)
[2021-09-03 18:00] VITALS: BP 119/78; PULSE 86; RESP 16; TEMP 36.6; O2SAT 98
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
[2021-09-04] VITALS (18 sets, daily range): BP systolic 90–139; BP diastolic 51–84; PULSE 65–100; RESP 10–20; TEMP 36.3–37; O2SAT 95–100
[2021-09-04] MEDS: diazePAM 5 MG TABLET PO ×2 (02:18→16:26)
[2021-09-04] MEDS: OLANZapine 10 MG TABLET PO ×3 (02:18→21:40)
[2021-09-04] MEDS: QUEtiapine Fumarate 50 MG TABLET 150 MG PO (02:18)
[2021-09-04] MEDS: LORazepam 2 MG/ML VIAL IVPUSH (06:49)
--- NOTE | 2021-09-04 07:10 | MHC.SHP ---
Pre-Procedural Eval Section A Date of Service: 09/04/21 The patient is an INPATIENT: Yes Changes since office visit: Yes New Medical Problems and Yes Changes in Medication; No Cold of Flu in the past 2 weeks and No Patient answered all questions The History & Physical has been completed within 30 days and I have reviewed it.: Yes Section B Chief Complaint: joleen Allergies: Allergies Allergy/AdvReac Type Severity Reaction Status Date / Time haloperidol [From Haldol] Allergy Unknown Verified 07/22/20 03:38 Plan I have reviewed the history and physical and performed a pertinent physical examination on my patient. No changes have occurred unless specified.
--- NOTE | 2021-09-04 07:19 | ECG_ITS ---
Test Reason : cp Blood Pressure : / mmHG Vent. Rate : 075 BPM Atrial Rate : 075 BPM P-R Int : 156 ms QRS Dur : 094 ms QT Int : 380 ms P-R-T Axes : 032 007 022 degrees QTc Int : 424 ms Normal sinus rhythm Normal ECG When compared with ECG of 21-AUG-2021 09:48, No significant change was found Referred By: Adis James Electronically Signed By:FEROZ DANIEL
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
--- NOTE | 2021-09-04 07:22 | ECG_ITS ---
Test Reason : post op ect Blood Pressure : / mmHG Vent. Rate : 088 BPM Atrial Rate : 088 BPM P-R Int : 138 ms QRS Dur : 082 ms QT Int : 336 ms P-R-T Axes : 014 024 018 degrees QTc Int : 406 ms Normal sinus rhythm Normal ECG When compared with ECG of 04-SEP-2021 07:32, No significant change was found Referred By: Adis James Electronically Signed By:FEROZ DANIEL
[2021-09-04 07:38] LABS: MANUAL DIFF FLAG NO
[2021-09-04 07:41] LABS: Basophils Percent Auto 0.4 % (0-2); Eosinophils Absolute Auto 0.3 X10*3/uL (0.0-0.4); Hematocrit 40.5 % (42.0-52.0); Hemoglobin 13.3 g/dl (14.0-18.0); Imm Gran Pct Auto 1.8 % (0.0-0.4); Lymphocytes Absolute Auto 1.5 X10*3/uL (1.2-4.9); Lymphocytes Percent Auto 27.5 % (20-40); Mean Corpuscular HGB Conc 32.8 g/dl (31.0-36.0); Mean Corpuscular Hemoglobin 29.8 pg (27.0-33.0); Mean Corpuscular Volume 90.6 fL (80.0-98.0); Monocytes Absolute Auto 0.7 X10*3/uL (0.1-1.2); Monocytes Percent Auto 12.6 % (2-11); Neutrophils Absolute Auto 2.9 x10*3/uL (2.0-8.3); Neutrophils Percent Auto 52.7 % (45-73); Platelet Count 210 X10*3/uL (160-400); Red Blood Count 4.47 X10*6/uL (4.60-5.80); Red Cell Distribution Width 12.8 % (11.0-16.0); White Blood Count 5.6 X10*3/uL (4.8-10.8)
[2021-09-04 08:08] LABS: Alanine Aminotransferase 45 U/L (0-40); Albumin Level 3.8 g/dL (3.5-5.0); Alkaline Phosphatase 46 U/L (39-117); Bilirubin Total 0.5 mg/dL (0.0-1.0); Creatinine Clr Calc Pharmacy 59.8; Creatinine Clr Calc Pharmacy 60.1; Estimated Glomerular Filt Rate 36; Estimated Glomerular Filt Rate 37; Glucose Fasting 108 mg/dL (60-99); Glucose Random 109 mg/dL (60-115); Total Protein 6.6 g/dL (6.5-8.0)
[2021-09-04 08:31] LABS: Anion Gap 16 (12-20); Aspartate Amino Transferase 27 U/L (5-37); Blood Urea Nitrogen 24 mg/dL (9-16); Calcium 9.5 mg/dL (8.4-10.2); Calcium 9.6 mg/dL (8.4-10.2); Carbon Dioxide 23 mmol/L (22-29); Carbon Dioxide 24 mmol/L (22-29); Chloride 110 mmol/L (96-108); Chloride 111 mmol/L (96-108); Potassium 4.6 mmol/L (3.3-5.1); Sodium 145 mmol/L (135-145)
--- NOTE | 2021-09-04 09:00 | HO.ANESPROP2 ---
[facility] Active Problems Active Problems: All Active Problems (Updated 08/20/21 @ 17:39 by Fredy Caldera DO) Physical exam (Acute) Bipolar affective disorder, mixed, severe, with psychotic behavior (Acute) Bipolar affective, manic, full remis (Acute) Hypertension (Acute) Hyperlipidemia (Acute) Dyskinesia, tardive (Acute) Manic behavior (Acute) Rash (Acute) Past Medical History Medical History HTN (hypertension) Kidney problem Functional capacity: independent ambulation Family History Family history of problems with anesthesia: No Surgical History History of Problems with Anesthesia: No Social History Social History Household Members: Spouse Household Members Other:: Housing: House Do you presently have visiting nurse or other home services: No Unable to assess alcohol history related to: Unknown Patient Tobacco Use Status: Tobacco use Unknown Second Hand Smoke Exposure: No Use of substances other than those prescribed or required for medical reasons: Unknown Currently Displaying Signs/Symptoms of Drug Intoxication Withdrawal: No Any prior treatment program specific to substance use: No Advance Directives: No Advance Directives Information Provided: No Advance Directives on File: No Healthcare Proxy: Yes Guardian: No Do you have thoughts of harming others: None Do you have a plan to hurt others: No Plan Recently lost weight without trying: Unsure How much weight loss: Unsure service: No Sexual orientation: Straight/Heterosexual Meds Allergies Allergy/AdvReac Type Severity Reaction Status Date / Time haloperidol [From Haldol] Allergy Unknown Verified 07/22/20 03:38 Active Medications: Current Medications Acetaminophen (Acetaminophen 325 Mg Tablet) 975 mg PO QID PRN PRN Reason: Mild Pain (Scale Score 1-4) Last Admin: 08/30/21 08:50 Dose: 975 mg Documented by: Al Hydroxide/Mg Hydroxide (Magnesium Hydrox/Alum Hydrox 30 Ml Oral.Susp) 30 ml PO Q6H PRN PRN Reason: Heartburn/Nausea Amlodipine Besylate (Amlodipine Besylate 10 Mg Tablet) 10 mg PO DAILY CONRAD; Protocol Last Admin: 09/03/21 09:01 Dose: 10 mg Documented by: Aripiprazole (Aripiprazole Er 400 Mg Suser.Syr) 400 mg IM Q28D CONRAD Last Admin: 08/20/21 14:09 Dose: 400 mg Documented by: Bisoprolol Fumarate (Bisoprolol Fumarate 5 Mg Tablet) 10 mg PO DAILY [facility] Last Admin: 09/03/21 09:01 Dose: 10 mg Documented by: Clonazepam (Clonazepam 1 Mg Tablet) 1 mg PO TID [facility] Last Admin: 09/03/21 20:57 Dose: 1 mg Documented by: Diazepam (Diazepam 5 Mg Tablet) 5 mg PO TID PRN PRN Reason: anxiety/restlessness Last Admin: 09/04/21 02:18 Dose: 5 mg Documented by: Loperamide HCl (Loperamide Hcl 2 Mg Capsule) 2 mg PO Q4H PRN PRN Reason: Diarrhea Last Admin: 08/27/21 12:31 Dose: 2 mg Documented by: Magnesium Hydroxide (Milk Of Magnesia 30 Ml Oral.Susp) 30 ml PO DAILY PRN PRN Reason: Constipation Multivitamins/Vitamin C (Multivitamin Tablet) 1 tab PO DAILY [facility] Last Admin: 09/03/21 09:01 Dose: 1 tab Documented by: Nystatin (Nystatin Oral Susp 500,000 Unit/5 Ml Oral.Susp) 400,000 unit BUCCAL QID [facility]; Protocol Last Admin: 09/03/21 20:55 Dose: 400,000 unit Documented by: Olanzapine (Olanzapine 10 Mg Tablet) 10 mg PO BID [facility] Last Admin: 09/03/21 20:57 Dose: 10 mg Documented by: Olanzapine (Olanzapine 10 Mg Tablet) 10 mg PO BID PRN PRN Reason: Psychosis Last Admin: 09/04/21 02:18 Dose: 10 mg Documented by: Quetiapine Fumarate (Quetiapine Fumarate 50 Mg Tablet) 150 mg PO Q4H PRN PRN Reason: Psychosis Last Admin: 09/04/21 02:18 Dose: 150 mg Documented by: Home Medications Medication Instructions Recorded Confirmed Last Taken Type acetaminophen 500 mg tablet 1,000 mg PO QID PRN 08/16/21 08/16/21 Unknown History (Tylenol Extra Strength) amlodipine 10 mg tablet 1 tab PO DAILY 08/16/21 08/16/21 Unknown History aripiprazole 400 mg intramuscular 400 mg IM QMONTH 08/16/21 08/16/21 Unknown History suspension,extended release (Abiliflaura Maintena) bisoprolol 10 1 tab PO DAILY 08/16/21 08/16/21 Unknown History mg-hydrochlorothiazide 6.25 mg tablet multivitamin 1 tab PO DAILY 08/16/21 08/16/21 Unknown History vitamin B complex 1 tab PO DAILY 08/16/21 08/16/21 Unknown History Exam Exam Date and Time: September 04, 2021 0900 Height,Weight and Vital Signs: Height 6 ft 2 in Weight 101 kg Last Vital Signs Temp 98.6 F 09/04/21 07:24 Pulse 67 09/04/21 08:44 Resp 12 09/04/21 08:44 BP 100/65 09/04/21 08:44 Pulse Ox 100 09/04/21 08:44 Pertinent Lab Results Pertinent Lab Results: Laboratory Tests 08/16/21 08/16/21 08/16/21 16:05 16:42 16:42 WBC RBC Hgb Hct MCV MCH MCHC RDW Plt Count MPV Immature Gran % (Auto) Neut % (Auto) Lymph % (Auto) [place] % (Auto) Eos % (Auto) Baso % (Auto) Lymph # (Auto) [place] # (Auto) Eos # (Auto) Baso # (Auto) Abs Immat Gran (auto) Absolute Neuts (auto) Absolute Nucleated RBC Nucleated RBC % (auto) Sodium Potassium Chloride Carbon Dioxide Anion Gap BUN Creatinine Estim Creat Clear Calc Estimated GFR Random Glucose Fasting Glucose Estimat Average Glucose Hemoglobin A1c % Calcium Magnesium Iron TIBC % Saturation Unsat Iron Binding Total Bilirubin Direct Bilirubin AST ALT Alkaline Phosphatase Ammonia Lactate Dehydrogenase Total Creatine Kinase Total Protein Albumin Triglycerides Cholesterol LDL Cholesterol, Calc HDL Cholesterol Vitamin B12 Folate TSH Urine Color YELLOW Urine Appearance CLEAR Urine pH 6.0 Ur Specific [place] 1.010 Urine Protein 2+ H Urine Glucose (UA) NEG Urine Ketones NEG Urine Blood 2+ H Urine Nitrite NEG Ur Leukocyte Esterase NEG Urine RBC 5-9 H Urine WBC 0 Ur Squamous Epith Cells NONE Urine Bacteria NONE Urine Opiates Screen Not Detected Urine Fentanyl Screen Not Detected Ur Barbiturates Screen Not Detected Valproic Acid Ur Phencyclidine Scrn Not Detected Ur Amphetamines Screen Not Detected U Benzodiazepines Scrn Not Detected Urine Cocaine Screen Not Detected U Marijuana (THC) Screen Not Detected Ethyl Alcohol COVID-19 (URI) Negative COVID-19 Clin Com See Note Influenza Type A (PCR) Influenza Type B (PCR) RSV RNA Qual (PCR) SARS-CoV-2 RNA (RT-PCR) 0408/16/21 08/16/21 16:51 16:51 16:51 WBC 7.8 RBC 4.83 Hgb 14.8 Hct 42.1 MCV 87.2 MCH 30.6 MCHC 35.2 RDW 12.7 Plt Count 226 MPV 9.3 L Immature Gran % (Auto) 0.4 Neut % (Auto) 72.1 Lymph % (Auto) 15.1 L [place] % (Auto) 8.5 Eos % (Auto) 3.5 Baso % (Auto) 0.4 Lymph # (Auto) 1.2 [place] # (Auto) 0.7 Eos # (Auto) 0.3 Baso # (Auto) 0.0 Abs Immat Gran (auto) 0.03 Absolute Neuts (auto) 5.6 Absolute Nucleated RBC 0.000 Nucleated RBC % (auto) 0.0 Sodium 138 Potassium 3.9 Chloride 102 Carbon Dioxide 24 Anion Gap 16 BUN 16 Creatinine 1.49 H Estim Creat Clear Calc 80.2 Estimated GFR 51 Random Glucose 117 H Fasting Glucose Estimat Average Glucose Hemoglobin A1c % Calcium 10.1 D Magnesium Iron TIBC % Saturation Unsat Iron Binding Total Bilirubin 0.7 Direct Bilirubin AST 47 H D ALT 63 H Alkaline Phosphatase 56 Ammonia Lactate Dehydrogenase Total Creatine Kinase Total Protein 8.2 H D Albumin 4.9 D Triglycerides Cholesterol LDL Cholesterol, Calc HDL Cholesterol Vitamin B12 Folate TSH Urine Color Urine Appearance Urine pH Ur Specific [place] Urine Protein Urine Glucose (UA) Urine Ketones Urine Blood Urine Nitrite Ur Leukocyte Esterase Urine RBC Urine WBC Ur Squamous Epith Cells Urine Bacteria Urine Opiates Screen Urine Fentanyl Screen Ur Barbiturates Screen Valproic Acid Ur Phencyclidine Scrn Ur Amphetamines Screen U Benzodiazepines Scrn Urine Cocaine Screen U Marijuana (THC) Screen Ethyl Alcohol < 10 COVID-19 (URI) COVID-19 Clin Com Influenza Type A (PCR) Influenza Type B (PCR) RSV RNA Qual (PCR) SARS-CoV-2 RNA (RT-PCR) 08/17/21 08/17/21 08/17/21 06:42 06:42 06:42 WBC RBC Hgb Hct MCV MCH MCHC RDW Plt Count MPV Immature Gran % (Auto) Neut % (Auto) Lymph % (Auto) [place] % (Auto) Eos % (Auto) Baso % (Auto) Lymph # (Auto) [place] # (Auto) Eos # (Auto) Baso # (Auto) Abs Immat Gran (auto) Absolute Neuts (auto) Absolute Nucleated RBC Nucleated RBC % (auto) Sodium 138 Potassium 3.9 Chloride 102 Carbon Dioxide 24 Anion Gap 16 BUN 12 Creatinine 1.47 H Estim Creat Clear Calc 81.3 Estimated GFR 52 Random Glucose Fasting Glucose 112 H Estimat Average Glucose 97 Hemoglobin A1c % 5.0 Calcium 10.2 Magnesium Iron TIBC % Saturation Unsat Iron Binding Total Bilirubin 1.2 H Direct Bilirubin AST 48 H ALT 65 H Alkaline Phosphatase 56 Ammonia Lactate Dehydrogenase Total Creatine Kinase Total Protein 8.5 H Albumin 4.9 Triglycerides 133 Cholesterol 226 D LDL Cholesterol, Calc 152 HDL Cholesterol 48 D Vitamin B12 558 Folate > 20.0 TSH 1.87 Urine Color Urine Appearance Urine pH Ur Specific [place] Urine Protein Urine Glucose (UA) Urine Ketones Urine Blood Urine Nitrite Ur Leukocyte Esterase Urine RBC Urine WBC Ur Squamous Epith Cells Urine Bacteria Urine Opiates Screen Urine Fentanyl Screen Ur Barbiturates Screen Valproic Acid Ur Phencyclidine Scrn Ur Amphetamines Screen U Benzodiazepines Scrn Urine Cocaine Screen U Marijuana (THC) Screen Ethyl Alcohol COVID-19 (URI) COVID-19 Clin Com Influenza Type A (PCR) Influenza Type B (PCR) RSV RNA Qual (PCR) SARS-CoV-2 RNA (RT-PCR) 08/24/21 08/24/21 08/25/21 07:19 07:19 17:19 WBC 5.9 RBC 4.04 L Hgb 12.2 L Hct 35.1 L MCV 86.9 MCH 30.2 MCHC 34.8 RDW 12.6 Plt Count 189 MPV 9.2 L Immature Gran % (Auto) 0.3 Neut % (Auto) 68.7 Lymph % (Auto) 16.5 L [place] % (Auto) 10.8 Eos % (Auto) 3.5 Baso % (Auto) 0.2 Lymph # (Auto) 1.0 L [place] # (Auto) 0.6 Eos # (Auto) 0.2 Baso # (Auto) 0.0 Abs Immat Gran (auto) 0.02 Absolute Neuts (auto) 4.1 Absolute Nucleated RBC 0.000 Nucleated RBC % (auto) 0.0 Sodium 141 141 Potassium 3.1 L D 3.0 L Chloride 105 102 Carbon Dioxide 24 27 Anion Gap 15 15 BUN 17 H 13 Creatinine 1.68 H 1.45 H Estim Creat Clear Calc 71.2 82.5 Estimated GFR 45 53 Random Glucose Fasting Glucose 90 Estimat Average Glucose Hemoglobin A1c % Calcium 9.1 D Magnesium Iron TIBC % Saturation Unsat Iron Binding Total Bilirubin 0.7 0.5 Direct Bilirubin 0.2 AST 120 H 119 H ALT 47 H 56 H Alkaline Phosphatase 45 43 Ammonia Lactate Dehydrogenase 472 H Total Creatine Kinase 6578 H Total Protein 6.2 L D 5.8 L Albumin 3.8 D 3.5 Triglycerides Cholesterol LDL Cholesterol, Calc HDL Cholesterol Vitamin B12 Folate TSH Urine Color Urine Appearance Urine pH Ur Specific [place] Urine Protein Urine Glucose (UA) Urine Ketones Urine Blood Urine Nitrite Ur Leukocyte Esterase Urine RBC Urine WBC Ur Squamous Epith Cells Urine Bacteria Urine Opiates Screen Urine Fentanyl Screen Ur Barbiturates Screen Valproic Acid 103.1 H Ur Phencyclidine Scrn Ur Amphetamines Screen U Benzodiazepines Scrn Urine Cocaine Screen U Marijuana (THC) Screen Ethyl Alcohol COVID-19 (URI) COVID-19 Clin Com Influenza Type A (PCR) Influenza Type B (PCR) RSV RNA Qual (PCR) SARS-CoV-2 RNA (RT-PCR) 08/25/21 08/26/21 08/26/21 17:19 07:53 07:53 WBC 5.6 RBC 3.90 L Hgb 11.9 L Hct 34.4 L MCV 88.2 MCH 30.5 MCHC 34.6 RDW 12.9 Plt Count 183 MPV 9.1 L Immature Gran % (Auto) 0.5 H Neut % (Auto) 62.7 Lymph % (Auto) 18.9 L [place] % (Auto) 10.9 Eos % (Auto) 6.6 H Baso % (Auto) 0.4 Lymph # (Auto) 1.1 L [place] # (Auto) 0.6 Eos # (Auto) 0.4 Baso # (Auto) 0.0 Abs Immat Gran (auto) 0.03 Absolute Neuts (auto) 3.5 Absolute Nucleated RBC 0.000 Nucleated RBC % (auto) 0.0 Sodium 144 Cancelled Potassium 3.9 D Cancelled Chloride 105 Cancelled Carbon Dioxide 26 Cancelled Anion Gap 17 Cancelled BUN 11 Creatinine 1.26 Estim Creat Clear Calc 94.9 Estimated GFR > 60 Random Glucose 93 Fasting Glucose Estimat Average Glucose Hemoglobin A1c % Calcium 9.1 Magnesium Cancelled Iron TIBC % Saturation Unsat Iron Binding Total Bilirubin Direct Bilirubin AST ALT Alkaline Phosphatase Ammonia Lactate Dehydrogenase Total Creatine Kinase 5470 H Total Protein Albumin Triglycerides Cholesterol LDL Cholesterol, Calc HDL Cholesterol Vitamin B12 Folate TSH Urine Color Urine Appearance Urine pH Ur Specific [place] Urine Protein Urine Glucose (UA) Urine Ketones Urine Blood Urine Nitrite Ur Leukocyte Esterase Urine RBC Urine WBC Ur Squamous Epith Cells Urine Bacteria Urine Opiates Screen Urine Fentanyl Screen Ur Barbiturates Screen Valproic Acid Ur Phencyclidine Scrn Ur Amphetamines Screen U Benzodiazepines Scrn Urine Cocaine Screen U Marijuana (THC) Screen Ethyl Alcohol COVID-19 (URI) COVID-19 Clin Com Influenza Type A (PCR) Influenza Type B (PCR) RSV RNA Qual (PCR) SARS-CoV-2 RNA (RT-PCR) 08/26/21 08/26/21 08/27/21 07:53 14:30 08:19 WBC 7.0 5.0 3.8 L RBC 4.35 L 4.17 L 4.41 L Hgb 13.5 L 12.5 L 13.5 L Hct 38.5 L 37.1 L 40.3 L MCV 88.5 89.0 91.4 MCH 31.0 30.0 30.6 MCHC 35.1 33.7 33.5 RDW 12.9 12.8 13.2 Plt Count 200 191 178 MPV 9.4 9.5 9.8 Immature Gran % (Auto) 0.4 1.1 H Neut % (Auto) 86.8 H 74.0 H Lymph % (Auto) 3.9 L 11.9 L [place] % (Auto) 5.6 11.4 H Eos % (Auto) 3.2 1.1 Baso % (Auto) 0.1 0.5 Lymph # (Auto) 0.3 L 0.5 L [place] # (Auto) 0.4 0.4 Eos # (Auto) 0.2 0.0 Baso # (Auto) 0.0 0.0 Abs Immat Gran (auto) 0.03 0.04 H Absolute Neuts (auto) 6.0 2.8 Absolute Nucleated RBC 0.000 0.000 0.000 Nucleated RBC % (auto) 0.0 0.0 0.0 Sodium Potassium Chloride Carbon Dioxide Anion Gap BUN Creatinine Estim Creat Clear Calc Estimated GFR Random Glucose Fasting Glucose Estimat Average Glucose Hemoglobin A1c % Calcium Magnesium Iron TIBC % Saturation Unsat Iron Binding Total Bilirubin Direct Bilirubin AST ALT Alkaline Phosphatase Ammonia Lactate Dehydrogenase Total Creatine Kinase Total Protein Albumin Triglycerides Cholesterol LDL Cholesterol, Calc HDL Cholesterol Vitamin B12 Folate TSH Urine Color Urine Appearance Urine pH Ur Specific [place] Urine Protein Urine Glucose (UA) Urine Ketones Urine Blood Urine Nitrite Ur Leukocyte Esterase Urine RBC Urine WBC Ur Squamous Epith Cells Urine Bacteria Urine Opiates Screen Urine Fentanyl Screen Ur Barbiturates Screen Valproic Acid Ur Phencyclidine Scrn Ur Amphetamines Screen U Benzodiazepines Scrn Urine Cocaine Screen U Marijuana (THC) Screen Ethyl Alcohol COVID-19 (URI) COVID-19 Clin Com Influenza Type A (PCR) Influenza Type B (PCR) RSV RNA Qual (PCR) SARS-CoV-2 RNA (RT-PCR) 08/27/21 08/27/21 08/27/21 08:19 08:19 13:58 WBC RBC Hgb Hct MCV MCH MCHC RDW Plt Count MPV Immature Gran % (Auto) Neut % (Auto) Lymph % (Auto) [place] % (Auto) Eos % (Auto) Baso % (Auto) Lymph # (Auto) [place] # (Auto) Eos # (Auto) Baso # (Auto) Abs Immat Gran (auto) Absolute Neuts (auto) Absolute Nucleated RBC Nucleated RBC % (auto) Sodium 144 Potassium 3.8 Chloride 107 Carbon Dioxide 24 Anion Gap 17 BUN 21 H D Creatinine 1.54 H Estim Creat Clear Calc 77.6 Estimated GFR 49 Random Glucose Fasting Glucose 75 Estimat Average Glucose Hemoglobin A1c % Calcium 8.8 Magnesium Iron 24 L TIBC 245 % Saturation 10 L Unsat Iron Binding 221 Total Bilirubin 0.6 Direct Bilirubin AST 102 H ALT 73 H Alkaline Phosphatase 47 Ammonia 45 Lactate Dehydrogenase Total Creatine Kinase 3624 H Total Protein 6.0 L Albumin 3.5 Triglycerides Cholesterol LDL Cholesterol, Calc HDL Cholesterol Vitamin B12 Folate TSH Urine Color Urine Appearance Urine pH Ur Specific [place] Urine Protein Urine Glucose (UA) Urine Ketones Urine Blood Urine Nitrite Ur Leukocyte Esterase Urine RBC Urine WBC Ur Squamous Epith Cells Urine Bacteria Urine Opiates Screen Urine Fentanyl Screen Ur Barbiturates Screen Valproic Acid Ur Phencyclidine Scrn Ur Amphetamines Screen U Benzodiazepines Scrn Urine Cocaine Screen U Marijuana (THC) Screen Ethyl Alcohol COVID-19 (URI) COVID-19 Clin Com Influenza Type A (PCR) NEGATIVE Influenza Type B (PCR) NEGATIVE RSV RNA Qual (PCR) NEGATIVE SARS-CoV-2 RNA (RT-PCR) NEGATIVE 08/28/21 08/29/21 08/29/21 08:59 07:10 07:10 WBC 7.0 RBC 4.18 L Hgb 12.6 L Hct 37.2 L MCV 89.0 MCH 30.1 MCHC 33.9 RDW 13.2 Plt Count 204 MPV 8.9 L Immature Gran % (Auto) 1.0 H Neut % (Auto) 62.8 Lymph % (Auto) 16.3 L [place] % (Auto) 12.9 H Eos % (Auto) 6.7 H Baso % (Auto) 0.3 Lymph # (Auto) 1.1 L [place] # (Auto) 0.9 Eos # (Auto) 0.5 H Baso # (Auto) 0.0 Abs Immat Gran (auto) 0.07 H Absolute Neuts (auto) 4.4 Absolute Nucleated RBC 0.000 Nucleated RBC % (auto) 0.0 Sodium 144 Potassium 3.4 Chloride 107 Carbon Dioxide 29 Anion Gap 11 L BUN 13 Creatinine 1.29 Estim Creat Clear Calc 92.7 Estimated GFR > 60 Random Glucose 107 Fasting Glucose Estimat Average Glucose 94 Hemoglobin A1c % 4.9 Calcium 8.5 Magnesium 1.8 Iron TIBC % Saturation Unsat Iron Binding Total Bilirubin 0.6 Direct Bilirubin AST 69 H ALT 66 H Alkaline Phosphatase 44 Ammonia Lactate Dehydrogenase Total Creatine Kinase 2202 H D Total Protein 5.8 L Albumin 3.3 L Triglycerides Cholesterol LDL Cholesterol, Calc HDL Cholesterol Vitamin B12 Folate TSH Urine Color Urine Appearance Urine pH Ur Specific [place] Urine Protein Urine Glucose (UA) Urine Ketones Urine Blood Urine Nitrite Ur Leukocyte Esterase Urine RBC Urine WBC Ur Squamous Epith Cells Urine Bacteria Urine Opiates Screen Urine Fentanyl Screen Ur Barbiturates Screen Valproic Acid Ur Phencyclidine Scrn Ur Amphetamines Screen U Benzodiazepines Scrn Urine Cocaine Screen U Marijuana (THC) Screen Ethyl Alcohol COVID-19 (URI) COVID-19 Clin Com Influenza Type A (PCR) Influenza Type B (PCR) RSV RNA Qual (PCR) SARS-CoV-2 RNA (RT-PCR) 09/04/21 09/04/21 09/04/21 07:34 07:34 07:34 WBC 5.6 RBC 4.47 L Hgb 13.3 L Hct 40.5 L MCV 90.6 MCH 29.8 MCHC 32.8 RDW 12.8 Plt Count 210 MPV 9.0 L Immature Gran % (Auto) 1.8 H Neut % (Auto) 52.7 Lymph % (Auto) 27.5 [place] % (Auto) 12.6 H Eos % (Auto) 5.0 H Baso % (Auto) 0.4 Lymph # (Auto) 1.5 [place] # (Auto) 0.7 Eos # (Auto) 0.3 Baso # (Auto) 0.0 Abs Immat Gran (auto) 0.10 H Absolute Neuts (auto) 2.9 Absolute Nucleated RBC 0.000 Nucleated RBC % (auto) 0.0 Sodium 145 145 Potassium 4.6 D 4.6 Chloride 110 H 111 H Carbon Dioxide 24 23 Anion Gap 16 16 BUN 24 H D 24 H Creatinine 1.99 H 2.00 H Estim Creat Clear Calc 60.1 59.8 Estimated GFR 37 36 Random Glucose 109 Fasting Glucose 108 H D Estimat Average Glucose Hemoglobin A1c % Calcium 9.6 D 9.5 Magnesium Iron TIBC % Saturation Unsat Iron Binding Total Bilirubin 0.5 Direct Bilirubin AST 27 D ALT 45 H Alkaline Phosphatase 46 Ammonia Lactate Dehydrogenase Total Creatine Kinase 248 H D 245 H Total Protein 6.6 Albumin 3.8 Triglycerides Cholesterol LDL Cholesterol, Calc HDL Cholesterol Vitamin B12 Folate TSH Urine Color Urine Appearance Urine pH Ur Specific [place] Urine Protein Urine Glucose (UA) Urine Ketones Urine Blood Urine Nitrite Ur Leukocyte Esterase Urine RBC Urine WBC Ur Squamous Epith Cells Urine Bacteria Urine Opiates Screen Urine Fentanyl Screen Ur Barbiturates Screen Valproic Acid Ur Phencyclidine Scrn Ur Amphetamines Screen U Benzodiazepines Scrn Urine Cocaine Screen U Marijuana (THC) Screen Ethyl Alcohol COVID-19 (URI) COVID-19 Clin Com Influenza Type A (PCR) Influenza Type B (PCR) RSV RNA Qual (PCR) SARS-CoV-2 RNA (RT-PCR) Assessment and Plan Final Anesthetic Review Family History of Problems with Anesthesia: No History of Problems with Anesthesia: No
[2021-09-04 10:56] LABS: Anion Gap 15 (12-20); Blood Urea Nitrogen 22 mg/dL (9-16); Calcium 9.5 mg/dL (8.4-10.2); Carbon Dioxide 26 mmol/L (22-29); Chloride 110 mmol/L (96-108); Creatinine Clr Calc Pharmacy 64.3; Estimated Glomerular Filt Rate 40; Glucose Random 89 mg/dL (60-115); Potassium 4.6 mmol/L (3.3-5.1); Sodium 146 mmol/L (135-145)
--- NOTE | 2021-09-04 10:56 | HO.POSTANES ---
Post Anesthesia Evaluation Post Anesthesia Evaluation Vital Signs: Vital Signs Temp Pulse Resp BP Pulse Ox 09/04/21 10:29 98.0 F 80 18 116/79 97 09/04/21 09:59 65 17 110/75 100 09/04/21 09:29 67 17 111/81 100 09/04/21 08:59 66 14 101/64 100 09/04/21 08:44 67 12 100/65 100 09/04/21 08:29 70 13 100/62 100 09/04/21 08:14 69 12 106/70 100 09/04/21 07:59 71 12 111/71 100 09/04/21 07:54 75 13 99/62 100 09/04/21 07:39 75 14 101/65 100 09/04/21 07:34 75 12 106/66 100 09/04/21 07:29 75 15 105/68 100 09/04/21 07:24 98.6 F 72 10 L 111/68 100 09/04/21 06:38 97.6 F 100 20 127/81 96 09/04/21 06:19 97.4 F 84 18 114/84 96 Anesthesia: General Mental Status: Awake Pain Control: Satisfactory Nausea/Vomiting: None Hydration: Adequate Anesthesia-Related Issues: No Anes. Related Issues
[2021-09-04] MEDS: Bisoprolol Fumarate 5 MG TABLET 10 MG PO (13:05)
[2021-09-04] MEDS: Multivitamin TABLET 1 TAB PO (13:05)
[2021-09-04] MEDS: clonazePAM 1 MG TABLET PO ×3 (13:06→21:46)
[2021-09-04] MEDS: amLODIPine Besylate 10 MG TABLET PO (13:06)
[2021-09-04] MEDS: Nystatin Oral Susp 500,000 UNIT/5 ML ORAL.SUSP 400000 UNIT BUCCAL ×3 (13:09→21:40)
--- NOTE | 2021-09-04 23:05 | HO.PSYCHPN ---
Subjective Subjective Date of Service: 09/04/21 Reason For Visit: joleen Subjective Notes: Conditional Voluntary Healthcare Proxy: Yes Guardianship: No Interim History: see ect note pt with inc creatinine transient pause in response to succinylcholine had bitemp ect # 6 this am remains manic pressured intrusive Medication Compliance: Intermittent Mental Status Exam Mental Status Exam Narrative: Patient seen psychomotor agitated pressured speech. Some brief periods goal direction mostly disorganized with flight of ideas. Elevated mood states periods of irritability impulsiveness poor boundaries was not hostile or threatening but needs frequent redirection against touching others needs frequent redirection no suicidal behavior insight judgment significantly impaired Aware that he is in a hospital Diagnostics Vital Signs (24Hr): Vital Signs - 24 hr 09/04/21 06:19 09/04/21 06:38 09/04/21 07:24 Temperature 97.4 F 97.6 F 98.6 F Pulse Rate 84 100 72 Respiratory Rate 18 20 10 L Blood Pressure 114/84 127/81 111/68 Pulse Oximetry 96 96 100 09/04/21 07:29 09/04/21 07:34 09/04/21 07:39 Temperature Pulse Rate 75 75 75 Respiratory Rate 15 12 14 Blood Pressure 105/68 106/66 101/65 Pulse Oximetry 100 100 100 09/04/21 07:54 09/04/21 07:59 09/04/21 08:14 Temperature Pulse Rate 75 71 69 Respiratory Rate 13 12 12 Blood Pressure 99/62 111/71 106/70 Pulse Oximetry 100 100 100 09/04/21 08:29 09/04/21 08:44 09/04/21 08:59 Temperature Pulse Rate 70 67 66 Respiratory Rate 13 12 14 Blood Pressure 100/62 100/65 101/64 Pulse Oximetry 100 100 100 09/04/21 09:29 09/04/21 09:59 09/04/21 10:29 Temperature 98.0 F Pulse Rate 67 65 80 Respiratory Rate 17 17 18 Blood Pressure 111/81 110/75 116/79 Pulse Oximetry 100 100 97 09/04/21 11:36 09/04/21 13:00 Temperature 97.3 F Pulse Rate 65 66 Respiratory Rate 14 Blood Pressure 90/51 L 111/73 Pulse Oximetry 96 95 BMI result Body Mass Index 28.5 Labs Results: 09/04/21 07:34 09/04/21 10:30 Labs: Laboratory Results - last 48 hr 09/04/21 09/04/21 09/04/21 07:34 07:34 07:34 WBC 5.6 RBC 4.47 L Hgb 13.3 L Hct 40.5 L MCV 90.6 MCH 29.8 MCHC 32.8 RDW 12.8 Plt Count 210 MPV 9.0 L Immature Gran % (Auto) 1.8 H Neut % (Auto) 52.7 Lymph % (Auto) 27.5 [place] % (Auto) 12.6 H Eos % (Auto) 5.0 H Baso % (Auto) 0.4 Lymph # (Auto) 1.5 [place] # (Auto) 0.7 Eos # (Auto) 0.3 Baso # (Auto) 0.0 Abs Immat Gran (auto) 0.10 H Absolute Neuts (auto) 2.9 Absolute Nucleated RBC 0.000 Nucleated RBC % (auto) 0.0 Sodium 145 145 Potassium 4.6 D 4.6 Chloride 110 H 111 H Carbon Dioxide 24 23 Anion Gap 16 16 BUN 24 H D 24 H Creatinine 1.99 H 2.00 H Estim Creat Clear Calc 60.1 59.8 Estimated GFR 37 36 Random Glucose 109 Fasting Glucose 108 H D Calcium 9.6 D 9.5 Total Bilirubin 0.5 AST 27 D ALT 45 H Alkaline Phosphatase 46 Total Creatine Kinase 248 H D 245 H Total Protein 6.6 Albumin 3.8 09/04/21 10:30 WBC RBC Hgb Hct MCV MCH MCHC RDW Plt Count MPV Immature Gran % (Auto) Neut % (Auto) Lymph % (Auto) [place] % (Auto) Eos % (Auto) Baso % (Auto) Lymph # (Auto) [place] # (Auto) Eos # (Auto) Baso # (Auto) Abs Immat Gran (auto) Absolute Neuts (auto) Absolute Nucleated RBC Nucleated RBC % (auto) Sodium 146 H Potassium 4.6 Chloride 110 H Carbon Dioxide 26 Anion Gap 15 BUN 22 H Creatinine 1.86 H Estim Creat Clear Calc 64.3 Estimated GFR 40 Random Glucose 89 Fasting Glucose Calcium 9.5 Total Bilirubin AST ALT Alkaline Phosphatase Total Creatine Kinase Total Protein Albumin Imaging Radiology Impressions: ITS Impressions Chest X-Ray 08/26/21 14:28 IMPRESSION: Low lung volume and nonspecific subtle bibasilar airspace disease, may represent hypoventilatory, atelectatic changes versus subtle infiltrate or combination thereof. No evidence of any dense airspace pneumonia. Medications Medications Current Medications Acetaminophen (Acetaminophen 325 Mg Tablet) 975 mg PO QID PRN PRN Reason: Mild Pain (Scale Score 1-4) Last Admin: 08/30/21 08:50 Dose: 975 mg Documented by: Al Hydroxide/Mg Hydroxide (Magnesium Hydrox/Alum Hydrox 30 Ml Oral.Susp) 30 ml PO Q6H PRN PRN Reason: Heartburn/Nausea Amlodipine Besylate (Amlodipine Besylate 10 Mg Tablet) 10 mg PO DAILY [facility]; Protocol Last Admin: 09/04/21 13:06 Dose: 10 mg Documented by: Aripiprazole (Aripiprazole Er 400 Mg Suser.Syr) 400 mg IM Q28D [facility] Last Admin: 08/20/21 14:09 Dose: 400 mg Documented by: Bisoprolol Fumarate (Bisoprolol Fumarate 5 Mg Tablet) 5 mg PO DAILY [facility] Clonazepam (Clonazepam 1 Mg Tablet) 1 mg PO TID [facility] Last Admin: 09/04/21 21:46 Dose: 1 mg Documented by: Diazepam (Diazepam 5 Mg Tablet) 5 mg PO TID PRN PRN Reason: anxiety/restlessness Last Admin: 09/04/21 16:26 Dose: 5 mg Documented by: Loperamide HCl (Loperamide Hcl 2 Mg Capsule) 2 mg PO Q4H PRN PRN Reason: Diarrhea Last Admin: 08/27/21 12:31 Dose: 2 mg Documented by: Magnesium Hydroxide (Milk Of Magnesia 30 Ml Oral.Susp) 30 ml PO DAILY PRN PRN Reason: Constipation Multivitamins/Vitamin C (Multivitamin Tablet) 1 tab PO DAILY [facility] Last Admin: 09/04/21 13:05 Dose: 1 tab Documented by: Nystatin (Nystatin Oral Susp 500,000 Unit/5 Ml Oral.Susp) 400,000 unit BUCCAL QID [facility]; Protocol Last Admin: 09/04/21 21:40 Dose: 400,000 unit Documented by: Olanzapine (Olanzapine 10 Mg Tablet) 10 mg PO BID [facility] Last Admin: 09/04/21 21:40 Dose: 10 mg Documented by: Quetiapine Fumarate (Quetiapine Fumarate 50 Mg Tablet) 150 mg PO Q4H PRN PRN Reason: Psychosis Last Admin: 09/04/21 02:18 Dose: 150 mg Documented by: Allergies Allergies Allergy/AdvReac Type Severity Reaction Status Date / Time haloperidol [From Haldol] Allergy Unknown Verified 07/22/20 03:38 Assessment & Plan Assessment & Plan (1) Bipolar affective disorder, mixed, severe, with psychotic behavior: Status: Acute Code(s): F31.64 - Bipolar disorder, current episode mixed, severe, with psychotic features Assessment and Plan: 09/04/21 Unclear questionable adverse effect from succinylcholine with normal to Path potassium an EKG. Anesthesiology present discussed not using succinylcholine next treatment but to use non dipole arising agent will lower beta-audrey encourage fluids creatinine elevated was given fluids at ECT (2) Dyskinesia, tardive: Status: Acute Code(s): G24.01 - Drug induced subacute dyskinesia I spent minutes with the patient and/or on the patient floor today, greater than?50% of which was spent counseling/coordinating care. Reason for contiued inpatient stay Substantial Risk for: harm to others, inability to function, rapid decompensation and med/psych decompensation
[2021-09-05] MEDS: diazePAM 5 MG TABLET PO ×2 (03:32→16:50)
[2021-09-05] MEDS: QUEtiapine Fumarate 50 MG TABLET 150 MG PO ×2 (03:32→16:49)
[2021-09-05] MEDS: chlorproMAZINE HCl 100 MG TABLET 200 MG PO (04:29)
[2021-09-05] MEDS: LORazepam 1 MG TABLET 2 MG PO (04:29)
[2021-09-05] MEDS: clonazePAM 1 MG TABLET PO ×2 (08:29→12:11)
[2021-09-05] MEDS: OLANZapine 10 MG TABLET PO ×2 (08:29→20:55)
[2021-09-05] MEDS: Multivitamin TABLET 1 TAB PO (08:30)
[2021-09-05] MEDS: amLODIPine Besylate 10 MG TABLET PO (08:30)
[2021-09-05] MEDS: Bisoprolol Fumarate 5 MG TABLET PO (08:30)
[2021-09-05] MEDS: Nystatin Oral Susp 500,000 UNIT/5 ML ORAL.SUSP 400000 UNIT BUCCAL ×4 (08:30→20:55)
[2021-09-05 09:00] VITALS: BP 99/70; PULSE 88; RESP 16; TEMP 36.7; O2SAT 98
[2021-09-05] MEDS: risperiDONE Oral Sol 1 MG/ML SOLUTION PO (12:11)
--- NOTE | 2021-09-05 14:38 | P.PNPSI_ITS ---
Subjective Subjective Date of Service: 09/05/21 Reason For Visit: joleen Subjective Notes: Conditional Voluntary Healthcare Proxy: Yes Guardianship: No Medical Problems Affecting Mental Status: No Interim History: Pt remains on 2.1 manic intrusive agitated needs much encouragement to eat and d scarlett takes meds with encouragement needs meds at 2 am for agitation creat inc Mental Status Exam Mental Status Exam Patient Appearance: Disheveled Level of Consciousness: Awake and Restless Patient Behavior: Hyperactive, Restless, Invasion - Personal Space, Distractible and Impulsive Mood Description: Hostile, Anxious, Labile, Elated, Apprehensive and Expansive Affect Description: Euphoric, Hostile, Labile, Angry and Apprehensive Ability to Follow Directions: Fair Speech Pattern: Slurred, Garbled and Pressured Memory Description: Episodic Impaired and Working Impaired Hallucinations: None Delusions: Grandiose Thought Process: Racing Thought Content: positive for Racing and positive for Disorganized Depressive Symptoms: Increased Irritability Abnormal Motor Activity Signs and Symptoms: Aggression, Hyperactivity and Restlessness Judgement: Poor Diagnostics Vital Signs (24Hr): Vital Signs - 24 hr 09/05/21 18:19 09/06/21 08:31 09/06/21 09:13 Temperature 97.1 F 97.0 F Pulse Rate 80 86 86 Respiratory Rate 20 14 Blood Pressure 117/75 132/86 111/76 Pulse Oximetry 97 97 09/06/21 09:40 09/06/21 09:45 09/06/21 09:50 Temperature 98.5 F Pulse Rate 77 75 74 Respiratory Rate 16 12 16 Blood Pressure 113/78 110/72 103/68 Pulse Oximetry 98 98 99 09/06/21 09:54 09/06/21 10:09 09/06/21 10:25 Temperature Pulse Rate 72 70 66 Respiratory Rate 16 16 16 Blood Pressure 101/67 98/63 113/78 Pulse Oximetry 97 97 97 BMI result Body Mass Index 28.5 Labs Results: 09/04/21 07:34 09/06/21 08:33 Labs: Laboratory Results - last 48 hr 09/04/21 09/06/21 09/06/21 10:30 08:33 08:33 Sodium 146 H 143 Potassium 4.6 4.6 Chloride 110 H 110 H Carbon Dioxide 26 23 Anion Gap 15 15 BUN 22 H 22 H Creatinine 1.86 H 1.77 H Estim Creat Clear Calc 64.3 67.5 Estimated GFR 40 42 Random Glucose 89 92 Calcium 9.5 9.7 TSH Cancelled 0.70 Imaging Radiology Impressions: ITS Impressions Chest X-Ray 08/26/21 14:28 IMPRESSION: Low lung volume and nonspecific subtle bibasilar airspace disease, may represent hypoventilatory, atelectatic changes versus subtle infiltrate or combination thereof. No evidence of any dense airspace pneumonia. Medications Medications Current Medications Acetaminophen (Acetaminophen 325 Mg Tablet) 975 mg PO QID PRN PRN Reason: Mild Pain (Scale Score 1-4) Last Admin: 08/30/21 08:50 Dose: 975 mg Documented by: Al Hydroxide/Mg Hydroxide (Magnesium Hydrox/Alum Hydrox 30 Ml Oral.Susp) 30 ml PO Q6H PRN PRN Reason: Heartburn/Nausea Amlodipine Besylate (Amlodipine Besylate 10 Mg Tablet) 10 mg PO DAILY [facility] [place]; Protocol Last Admin: 09/05/21 08:30 Dose: 10 mg Documented by: Aripiprazole (Aripiprazole Er 400 Mg Suser.Syr) 400 mg IM Q28D [facility] [place] Last Admin: 08/20/21 14:09 Dose: 400 mg Documented by: Bisoprolol Fumarate (Bisoprolol Fumarate 5 Mg Tablet) 5 mg PO DAILY [facility] [place] Last Admin: 09/05/21 08:30 Dose: 5 mg Documented by: Clonazepam (Clonazepam 1 Mg Tablet) 1 mg PO BID@0830,1330 [facility] [place] Last Admin: 09/05/21 12:11 Dose: 1 mg Documented by: Clonazepam (Clonazepam 1 Mg Tablet) 2 mg PO BEDTIME [facility] [place] Last Admin: 09/05/21 20:55 Dose: 2 mg Documented by: Diazepam (Diazepam 5 Mg Tablet) 5 mg PO TID PRN PRN Reason: anxiety/restlessness Last Admin: 09/05/21 16:50 Dose: 5 mg Documented by: Loperamide HCl (Loperamide Hcl 2 Mg Capsule) 2 mg PO Q4H PRN PRN Reason: Diarrhea Last Admin: 08/27/21 12:31 Dose: 2 mg Documented by: Magnesium Hydroxide (Milk Of Magnesia 30 Ml Oral.Susp) 30 ml PO DAILY PRN PRN Reason: Constipation Multivitamins/Vitamin C (Multivitamin Tablet) 1 tab PO DAILY [facility] [place] Last Admin: 09/05/21 08:30 Dose: 1 tab Documented by: Nystatin (Nystatin Oral Susp 500,000 Unit/5 Ml Oral.Susp) 400,000 unit BUCCAL QID [facility]; Protocol Last Admin: 09/05/21 20:55 Dose: 400,000 unit Documented by: Olanzapine (Olanzapine 10 Mg Tablet) 10 mg PO TID [facility] Last Admin: 09/05/21 20:55 Dose: 10 mg Documented by: Quetiapine Fumarate (Quetiapine Fumarate 50 Mg Tablet) 150 mg PO Q4H PRN PRN Reason: Psychosis Last Admin: 09/05/21 16:49 Dose: 150 mg Documented by: Allergies Allergies Allergy/AdvReac Type Severity Reaction Status Date / Time haloperidol [From Haldol] Allergy Unknown Verified 07/22/20 03:38 Assessment & Plan Assessment & Plan (1) Bipolar affective disorder, mixed, severe, with psychotic behavior: Status: Acute Code(s): F31.64 - Bipolar disorder, current episode mixed, severe, with psychotic features Assessment and Plan: 09/04/21 Unclear questionable adverse effect from succinylcholine with normal to Path potassium an EKG. Anesthesiology present discussed not using succinylcholine next treatment but to use non dipole arising agent will lower beta-audrey encourage fluids creatinine elevated was given fluids at ECT 09/05/21 Remains manic psychotic inc zyprexa 10 tid inc klonapin 1 bid 2 hs cont ect hx nms has renal insuff encourage fluids (2) Dyskinesia, tardive: Status: Acute Code(s): G24.01 - Drug induced subacute dyskinesia I spent minutes with the patient and/or on the patient floor today, greater than?50% of which was spent counseling/coordinating care. Reason for contiued inpatient stay Substantial Risk for: harm to others, inability to function, rapid decompensation and med/psych decompensation
[2021-09-05 18:19] VITALS: BP 117/75; PULSE 80
[2021-09-05] MEDS: clonazePAM 1 MG TABLET 2 MG PO (20:55)
[2021-09-06] VITALS (12 sets, daily range): BP systolic 98–132; BP diastolic 63–86; PULSE 66–98; RESP 12–20; TEMP 35.8–36.9; O2SAT 95–99
--- NOTE | 2021-09-06 09:10 | MHC.SHP ---
Pre-Procedural Eval Section A Date of Service: 09/06/21 The patient is an INPATIENT: Yes Changes since office visit: No Cold of Flu in the past 2 weeks, No New Medical Problems, No Changes in Medication and No Patient answered all questions The History & Physical has been completed within 30 days and I have reviewed it.: Yes Section B Chief Complaint: joleen Allergies: Allergies Allergy/AdvReac Type Severity Reaction Status Date / Time haloperidol [From Haldol] Allergy Unknown Verified 07/22/20 03:38 Plan I have reviewed the history and physical and performed a pertinent physical examination on my patient. No changes have occurred unless specified.
--- NOTE | 2021-09-06 09:27 | HO.ECTPROC ---
ECT Procedure Note Diagnosis/Treatment Date of Service: 09/06/21 Diagnosis: Bipolar disorder Previous ECT Date: 09/04/21 Current Treatment Number: 7 Treatment: Series Interval Clinical Notes: The patient remains grossly disorganized, psychotic and manic. ECT Settings Device: THYMATRON DGx Electrode Placement: Bitemporal Program/Pulse Width: 0.50 Energy Percent: 100 Seizure Duration By EEG (in seconds): 20 By Motor Observation (in seconds): 20 Medications Administration General Anesthetic: Other (Brevital 160) Muscle Relaxant: Rocuronium (50, later reversed) Ancillary Medications Analgesics: Torodol - Pre ECT Anti-emetics: Zofran - Pre ECT Airway Management Airway Management: Bag Mask Ventilation Treatment Recommendations No Changes Recommended: No change Pt Tolerated Procedure w/o Issue: Yes
[2021-09-06 09:37] LABS: Anion Gap 15 (12-20); Blood Urea Nitrogen 22 mg/dL (9-16); Calcium 9.7 mg/dL (8.4-10.2); Carbon Dioxide 23 mmol/L (22-29); Chloride 110 mmol/L (96-108); Creatinine Clr Calc Pharmacy 67.5; Estimated Glomerular Filt Rate 42; Glucose Random 92 mg/dL (60-115); Potassium 4.6 mmol/L (3.3-5.1); Sodium 143 mmol/L (135-145)
--- NOTE | 2021-09-06 10:38 | P.CONAN_ITS ---
[facility] Active Problems Active Problems: All Active Problems (Updated 08/20/21 @ 17:39 by Fredy Caldera DO) Physical exam (Acute) Bipolar affective disorder, mixed, severe, with psychotic behavior (Acute) Bipolar affective, manic, full remis (Acute) Hypertension (Acute) Hyperlipidemia (Acute) Dyskinesia, tardive (Acute) Manic behavior (Acute) Rash (Acute) Past Medical History Medical History HTN (hypertension) Kidney problem Functional capacity: independent ambulation Family History Family history of problems with anesthesia: No Surgical History History of Problems with Anesthesia: No Social History Social History Household Members: Spouse Household Members Other:: Housing: House Do you presently have visiting nurse or other home services: No Unable to assess alcohol history related to: Unknown Patient Tobacco Use Status: Tobacco use Unknown Second Hand Smoke Exposure: No Use of substances other than those prescribed or required for medical reasons: Unknown Currently Displaying Signs/Symptoms of Drug Intoxication Withdrawal: No Any prior treatment program specific to substance use: No Advance Directives: No Advance Directives Information Provided: No Advance Directives on File: No Healthcare Proxy: Yes Guardian: No Do you have thoughts of harming others: None Do you have a plan to hurt others: No Plan Recently lost weight without trying: Unsure How much weight loss: Unsure service: No Sexual orientation: Straight/Heterosexual Meds Allergies Allergy/AdvReac Type Severity Reaction Status Date / Time haloperidol [From Haldol] Allergy Unknown Verified 07/22/20 03:38 Active Medications: Current Medications Acetaminophen (Acetaminophen 325 Mg Tablet) 975 mg PO QID PRN PRN Reason: Mild Pain (Scale Score 1-4) Last Admin: 08/30/21 08:50 Dose: 975 mg Documented by: Al Hydroxide/Mg Hydroxide (Magnesium Hydrox/Alum Hydrox 30 Ml Oral.Susp) 30 ml PO Q6H PRN PRN Reason: Heartburn/Nausea Amlodipine Besylate (Amlodipine Besylate 10 Mg Tablet) 10 mg PO DAILY CONRAD; Protocol Last Admin: 09/05/21 08:30 Dose: 10 mg Documented by: Aripiprazole (Aripiprazole Er 400 Mg Suser.Syr) 400 mg IM Q28D CONRAD Last Admin: 08/20/21 14:09 Dose: 400 mg Documented by: Bisoprolol Fumarate (Bisoprolol Fumarate 5 Mg Tablet) 5 mg PO DAILY [facility]LY [facility], [facility] Last Admin: 09/05/21 08:30 Dose: 5 mg Documented by: Clonazepam (Clonazepam 1 Mg Tablet) 1 mg PO BID@0830,1330 [facility], [facility] Last Admin: 09/05/21 12:11 Dose: 1 mg Documented by: Clonazepam (Clonazepam 1 Mg Tablet) 2 mg PO BEDTIME FORMERLY [facility], [facility] Last Admin: 09/05/21 20:55 Dose: 2 mg Documented by: Diazepam (Diazepam 5 Mg Tablet) 5 mg PO TID PRN PRN Reason: anxiety/restlessness Last Admin: 09/05/21 16:50 Dose: 5 mg Documented by: Loperamide HCl (Loperamide Hcl 2 Mg Capsule) 2 mg PO Q4H PRN PRN Reason: Diarrhea Last Admin: 08/27/21 12:31 Dose: 2 mg Documented by: Magnesium Hydroxide (Milk Of Magnesia 30 Ml Oral.Susp) 30 ml PO DAILY PRN PRN Reason: Constipation Multivitamins/Vitamin C (Multivitamin Tablet) 1 tab PO DAILY [facility]LY [facility], [facility] Last Admin: 09/05/21 08:30 Dose: 1 tab Documented by: Nystatin (Nystatin Oral Susp 500,000 Unit/5 Ml Oral.Susp) 400,000 unit BUCCAL QID FOR[facility]LY [facility], [facility]; Protocol Last Admin: 09/05/21 20:55 Dose: 400,000 unit Documented by: Olanzapine (Olanzapine 10 Mg Tablet) 10 mg PO TID [facility] Last Admin: 09/05/21 20:55 Dose: 10 mg Documented by: Quetiapine Fumarate (Quetiapine Fumarate 50 Mg Tablet) 150 mg PO Q4H PRN PRN Reason: Psychosis Last Admin: 09/05/21 16:49 Dose: 150 mg Documented by: Home Medications Medication Instructions Recorded Confirmed Last Taken Type acetaminophen 500 mg tablet 1,000 mg PO QID PRN 08/16/21 08/16/21 Unknown History (Tylenol Extra Strength) amlodipine 10 mg tablet 1 tab PO DAILY 08/16/21 08/16/21 Unknown History aripiprazole 400 mg intramuscular 400 mg IM QMONTH 08/16/21 08/16/21 Unknown History suspension,extended release (Abilify Maintena) bisoprolol 10 1 tab PO DAILY 08/16/21 08/16/21 Unknown History mg-hydrochlorothiazide 6.25 mg tablet multivitamin 1 tab PO DAILY 08/16/21 08/16/21 Unknown History vitamin B complex 1 tab PO DAILY 08/16/21 08/16/21 Unknown History Exam Exam Date and Time: September 06, 2021 1038 Height,Weight and Vital Signs: CD Height 6 ft 2 in Weight 101 kg Last Vital Signs Temp 98.5 F 09/06/21 09:40 Pulse 66 09/06/21 10:25 Resp 16 09/06/21 10:25 BP 113/78 09/06/21 10:25 Pulse Ox 97 09/06/21 10:25 Pertinent Lab Results Pertinent Lab Results: Laboratory Tests 08/16/21 08/16/21 08/16/21 16:05 16:42 16:42 WBC RBC Hgb Hct MCV MCH MCHC RDW Plt Count MPV Immature Gran % (Auto) Neut % (Auto) Lymph % (Auto) [place] % (Auto) Eos % (Auto) Baso % (Auto) Lymph # (Auto) [place] # (Auto) Eos # (Auto) Baso # (Auto) Abs Immat Gran (auto) Absolute Neuts (auto) Absolute Nucleated RBC Nucleated RBC % (auto) Sodium Potassium Chloride Carbon Dioxide Anion Gap BUN Creatinine Estim Creat Clear Calc Estimated GFR Random Glucose Fasting Glucose Estimat Average Glucose Hemoglobin A1c % Calcium Magnesium Iron TIBC % Saturation Unsat Iron Binding Total Bilirubin Direct Bilirubin AST ALT Alkaline Phosphatase Ammonia Lactate Dehydrogenase Total Creatine Kinase Total Protein Albumin Triglycerides Cholesterol LDL Cholesterol, Calc HDL Cholesterol Vitamin B12 Folate TSH Urine Color YELLOW Urine Appearance CLEAR Urine pH 6.0 Ur Specific [place] 1.010 Urine Protein 2+ H Urine Glucose (UA) NEG Urine Ketones NEG Urine Blood 2+ H Urine Nitrite NEG Ur Leukocyte Esterase NEG Urine RBC 5-9 H Urine WBC 0 Ur Squamous Epith Cells NONE Urine Bacteria NONE Urine Opiates Screen Not Detected Urine Fentanyl Screen Not Detected Ur Barbiturates Screen Not Detected Valproic Acid Ur Phencyclidine Scrn Not Detected Ur Amphetamines Screen Not Detected U Benzodiazepines Scrn Not Detected Urine Cocaine Screen Not Detected U Marijuana (THC) Screen Not Detected Ethyl Alcohol COVID-19 (URI) Negative COVID-19 Clin Com See Note Influenza Type A (PCR) Influenza Type B (PCR) RSV RNA Qual (PCR) SARS-CoV-2 RNA (RT-PCR) 08/16/21 08/16/21 08/16/21 16:51 16:51 16:51 WBC 7.8 RBC 4.83 Hgb 14.8 Hct 42.1 MCV 87.2 MCH 30.6 MCHC 35.2 RDW 12.7 Plt Count 226 MPV 9.3 L Immature Gran % (Auto) 0.4 Neut % (Auto) 72.1 Lymph % (Auto) 15.1 L [place] % (Auto) 8.5 Eos % (Auto) 3.5 Baso % (Auto) 0.4 Lymph # (Auto) 1.2 [place] # (Auto) 0.7 Eos # (Auto) 0.3 Baso # (Auto) 0.0 Abs Immat Gran (auto) 0.03 Absolute Neuts (auto) 5.6 Absolute Nucleated RBC 0.000 Nucleated RBC % (auto) 0.0 Sodium 138 Potassium 3.9 Chloride 102 Carbon Dioxide 24 Anion Gap 16 BUN 16 Creatinine 1.49 H Estim Creat Clear Calc 80.2 Estimated GFR 51 Random Glucose 117 H Fasting Glucose Estimat Average Glucose Hemoglobin A1c % Calcium 10.1 D Magnesium Iron TIBC % Saturation Unsat Iron Binding Total Bilirubin 0.7 Direct Bilirubin AST 47 H D ALT 63 H Alkaline Phosphatase 56 Ammonia Lactate Dehydrogenase Total Creatine Kinase Total Protein 8.2 H D Albumin 4.9 D Triglycerides Cholesterol LDL Cholesterol, Calc HDL Cholesterol Vitamin B12 Folate TSH Urine Color Urine Appearance Urine pH Ur Specific [place] Urine Protein Urine Glucose (UA) Urine Ketones Urine Blood Urine Nitrite Ur Leukocyte Esterase Urine RBC Urine WBC Ur Squamous Epith Cells Urine Bacteria Urine Opiates Screen Urine Fentanyl Screen Ur Barbiturates Screen Valproic Acid Ur Phencyclidine Scrn Ur Amphetamines Screen U Benzodiazepines Scrn Urine Cocaine Screen U Marijuana (THC) Screen Ethyl Alcohol < 10 COVID-19 (URI) COVID-19 Clin Com Influenza Type A (PCR) Influenza Type B (PCR) RSV RNA Qual (PCR) SARS-CoV-2 RNA (RT-PCR) 08/17/21 08/17/21 08/17/21 06:42 06:42 06:42 WBC RBC Hgb Hct MCV MCH MCHC RDW Plt Count MPV Immature Gran % (Auto) Neut % (Auto) Lymph % (Auto) [place] % (Auto) Eos % (Auto) Baso % (Auto) Lymph # (Auto) [place] # (Auto) Eos # (Auto) Baso # (Auto) Abs Immat Gran (auto) Absolute Neuts (auto) Absolute Nucleated RBC Nucleated RBC % (auto) Sodium 138 Potassium 3.9 Chloride 102 Carbon Dioxide 24 Anion Gap 16 BUN 12 Creatinine 1.47 H Estim Creat Clear Calc 81.3 Estimated GFR 52 Random Glucose Fasting Glucose 112 H Estimat Average Glucose 97 Hemoglobin A1c % 5.0 Calcium 10.2 Magnesium Iron TIBC % Saturation Unsat Iron Binding Total Bilirubin 1.2 H Direct Bilirubin AST 48 H ALT 65 H Alkaline Phosphatase 56 Ammonia Lactate Dehydrogenase Total Creatine Kinase Total Protein 8.5 H Albumin 4.9 Triglycerides 133 Cholesterol 226 D LDL Cholesterol, Calc 152 HDL Cholesterol 48 D Vitamin B12 558 Folate > 20.0 TSH 1.87 Urine Color Urine Appearance Urine pH Ur Specific [place] Urine Protein Urine Glucose (UA) Urine Ketones Urine Blood Urine Nitrite Ur Leukocyte Esterase Urine RBC Urine WBC Ur Squamous Epith Cells Urine Bacteria Urine Opiates Screen Urine Fentanyl Screen Ur Barbiturates Screen Valproic Acid Ur Phencyclidine Scrn Ur Amphetamines Screen U Benzodiazepines Scrn Urine Cocaine Screen U Marijuana (THC) Screen Ethyl Alcohol COVID-19 (URI) COVID-19 Clin Com Influenza Type A (PCR) Influenza Type B (PCR) RSV RNA Qual (PCR) SARS-CoV-2 RNA (RT-PCR) 08/24/21 08/24/21 08/25/21 07:19 07:19 17:19 WBC 5.9 RBC 4.04 L Hgb 12.2 L Hct 35.1 L MCV 86.9 MCH 30.2 MCHC 34.8 RDW 12.6 Plt Count 189 MPV 9.2 L Immature Gran % (Auto) 0.3 Neut % (Auto) 68.7 Lymph % (Auto) 16.5 L [place] % (Auto) 10.8 Eos % (Auto) 3.5 Baso % (Auto) 0.2 Lymph # (Auto) 1.0 L [place] # (Auto) 0.6 Eos # (Auto) 0.2 Baso # (Auto) 0.0 Abs Immat Gran (auto) 0.02 Absolute Neuts (auto) 4.1 Absolute Nucleated RBC 0.000 Nucleated RBC % (auto) 0.0 Sodium 141 141 Potassium 3.1 L D 3.0 L Chloride 105 102 Carbon Dioxide 24 27 Anion Gap 15 15 BUN 17 H 13 Creatinine 1.68 H 1.45 H Estim Creat Clear Calc 71.2 82.5 Estimated GFR 45 53 Random Glucose Fasting Glucose 90 Estimat Average Glucose Hemoglobin A1c % Calcium 9.1 D Magnesium Iron TIBC % Saturation Unsat Iron Binding Total Bilirubin 0.7 0.5 Direct Bilirubin 0.2 AST 120 H 119 H ALT 47 H 56 H Alkaline Phosphatase 45 43 Ammonia Lactate Dehydrogenase 472 H Total Creatine Kinase 6578 H Total Protein 6.2 L D 5.8 L Albumin 3.8 D 3.5 Triglycerides Cholesterol LDL Cholesterol, Calc HDL Cholesterol Vitamin B12 Folate TSH Urine Color Urine Appearance Urine pH Ur Specific [place] Urine Protein Urine Glucose (UA) Urine Ketones Urine Blood Urine Nitrite Ur Leukocyte Esterase Urine RBC Urine WBC Ur Squamous Epith Cells Urine Bacteria Urine Opiates Screen Urine Fentanyl Screen Ur Barbiturates Screen Valproic Acid 103.1 H Ur Phencyclidine Scrn Ur Amphetamines Screen U Benzodiazepines Scrn Urine Cocaine Screen U Marijuana (THC) Screen Ethyl Alcohol COVID-19 (URI) COVID-19 Clin Com Influenza Type A (PCR) Influenza Type B (PCR) RSV RNA Qual (PCR) SARS-CoV-2 RNA (RT-PCR) 08/25/21 08/26/21 08/26/21 17:19 07:53 07:53 WBC 5.6 RBC 3.90 L Hgb 11.9 L Hct 34.4 L MCV 88.2 MCH 30.5 MCHC 34.6 RDW 12.9 Plt Count 183 MPV 9.1 L Immature Gran % (Auto) 0.5 H Neut % (Auto) 62.7 Lymph % (Auto) 18.9 L [place] % (Auto) 10.9 Eos % (Auto) 6.6 H Baso % (Auto) 0.4 Lymph # (Auto) 1.1 L [place] # (Auto) 0.6 Eos # (Auto) 0.4 Baso # (Auto) 0.0 Abs Immat Gran (auto) 0.03 Absolute Neuts (auto) 3.5 Absolute Nucleated RBC 0.000 Nucleated RBC % (auto) 0.0 Sodium 144 Cancelled Potassium 3.9 D Cancelled Chloride 105 Cancelled Carbon Dioxide 26 Cancelled Anion Gap 17 Cancelled BUN 11 Creatinine 1.26 Estim Creat Clear Calc 94.9 Estimated GFR > 60 Random Glucose 93 Fasting Glucose Estimat Average Glucose Hemoglobin A1c % Calcium 9.1 Magnesium Cancelled Iron TIBC % Saturation Unsat Iron Binding Total Bilirubin Direct Bilirubin AST ALT Alkaline Phosphatase Ammonia Lactate Dehydrogenase Total Creatine Kinase 5470 H Total Protein Albumin Triglycerides Cholesterol LDL Cholesterol, Calc HDL Cholesterol Vitamin B12 Folate TSH Urine Color Urine Appearance Urine pH Ur Specific [place] Urine Protein Urine Glucose (UA) Urine Ketones Urine Blood Urine Nitrite Ur Leukocyte Esterase Urine RBC Urine WBC Ur Squamous Epith Cells Urine Bacteria Urine Opiates Screen Urine Fentanyl Screen Ur Barbiturates Screen Valproic Acid Ur Phencyclidine Scrn Ur Amphetamines Screen U Benzodiazepines Scrn Urine Cocaine Screen U Marijuana (THC) Screen Ethyl Alcohol COVID-19 (URI) COVID-19 Clin Com Influenza Type A (PCR) Influenza Type B (PCR) RSV RNA Qual (PCR) SARS-CoV-2 RNA (RT-PCR) 08/26/21 08/26/21 08/27/21 07:53 14:30 08:19 WBC 7.0 5.0 3.8 L RBC 4.35 L 4.17 L 4.41 L Hgb 13.5 L 12.5 L 13.5 L Hct 38.5 L 37.1 L 40.3 L MCV 88.5 89.0 91.4 MCH 31.0 30.0 30.6 MCHC 35.1 33.7 33.5 RDW 12.9 12.8 13.2 Plt Count 200 191 178 MPV 9.4 9.5 9.8 Immature Gran % (Auto) 0.4 1.1 H Neut % (Auto) 86.8 H 74.0 H Lymph % (Auto) 3.9 L 11.9 L [place] % (Auto) 5.6 11.4 H Eos % (Auto) 3.2 1.1 Baso % (Auto) 0.1 0.5 Lymph # (Auto) 0.3 L 0.5 L [place] # (Auto) 0.4 0.4 Eos # (Auto) 0.2 0.0 Baso # (Auto) 0.0 0.0 Abs Immat Gran (auto) 0.03 0.04 H Absolute Neuts (auto) 6.0 2.8 Absolute Nucleated RBC 0.000 0.000 0.000 Nucleated RBC % (auto) 0.0 0.0 0.0 Sodium Potassium Chloride Carbon Dioxide Anion Gap BUN Creatinine Estim Creat Clear Calc Estimated GFR Random Glucose Fasting Glucose Estimat Average Glucose Hemoglobin A1c % Calcium Magnesium Iron TIBC % Saturation Unsat Iron Binding Total Bilirubin Direct Bilirubin AST ALT Alkaline Phosphatase Ammonia Lactate Dehydrogenase Total Creatine Kinase Total Protein Albumin Triglycerides Cholesterol LDL Cholesterol, Calc HDL Cholesterol Vitamin B12 Folate TSH Urine Color Urine Appearance Urine pH Ur Specific [place] Urine Protein Urine Glucose (UA) Urine Ketones Urine Blood Urine Nitrite Ur Leukocyte Esterase Urine RBC Urine WBC Ur Squamous Epith Cells Urine Bacteria Urine Opiates Screen Urine Fentanyl Screen Ur Barbiturates Screen Valproic Acid Ur Phencyclidine Scrn Ur Amphetamines Screen U Benzodiazepines Scrn Urine Cocaine Screen U Marijuana (THC) Screen Ethyl Alcohol COVID-19 (URI) COVID-19 Clin Com Influenza Type A (PCR) Influenza Type B (PCR) RSV RNA Qual (PCR) SARS-CoV-2 RNA (RT-PCR) 08/27/21 08/27/21 08/27/21 08:19 08:19 13:58 WBC RBC Hgb Hct MCV MCH MCHC RDW Plt Count MPV Immature Gran % (Auto) Neut % (Auto) Lymph % (Auto) [place] % (Auto) Eos % (Auto) Baso % (Auto) Lymph # (Auto) [place] # (Auto) Eos # (Auto) Baso # (Auto) Abs Immat Gran (auto) Absolute Neuts (auto) Absolute Nucleated RBC Nucleated RBC % (auto) Sodium 144 Potassium 3.8 Chloride 107 Carbon Dioxide 24 Anion Gap 17 BUN 21 H D Creatinine 1.54 H Estim Creat Clear Calc 77.6 Estimated GFR 49 Random Glucose Fasting Glucose 75 Estimat Average Glucose Hemoglobin A1c % Calcium 8.8 Magnesium Iron 24 L TIBC 245 % Saturation 10 L Unsat Iron Binding 221 Total Bilirubin 0.6 Direct Bilirubin AST 102 H ALT 73 H Alkaline Phosphatase 47 Ammonia 45 Lactate Dehydrogenase Total Creatine Kinase 3624 H Total Protein 6.0 L Albumin 3.5 Triglycerides Cholesterol LDL Cholesterol, Calc HDL Cholesterol Vitamin B12 Folate TSH Urine Color Urine Appearance Urine pH Ur Specific [place] Urine Protein Urine Glucose (UA) Urine Ketones Urine Blood Urine Nitrite Ur Leukocyte Esterase Urine RBC Urine WBC Ur Squamous Epith Cells Urine Bacteria Urine Opiates Screen Urine Fentanyl Screen Ur Barbiturates Screen Valproic Acid Ur Phencyclidine Scrn Ur Amphetamines Screen U Benzodiazepines Scrn Urine Cocaine Screen U Marijuana (THC) Screen Ethyl Alcohol COVID-19 (URI) COVID-19 Clin Com Influenza Type A (PCR) NEGATIVE Influenza Type B (PCR) NEGATIVE RSV RNA Qual (PCR) NEGATIVE SARS-CoV-2 RNA (RT-PCR) NEGATIVE 08/28/21 08/29/21 08/29/21 08:59 07:10 07:10 WBC 7.0 RBC 4.18 L Hgb 12.6 L Hct 37.2 L MCV 89.0 MCH 30.1 MCHC 33.9 RDW 13.2 Plt Count 204 MPV 8.9 L Immature Gran % (Auto) 1.0 H Neut % (Auto) 62.8 Lymph % (Auto) 16.3 L [place] % (Auto) 12.9 H Eos % (Auto) 6.7 H Baso % (Auto) 0.3 Lymph # (Auto) 1.1 L [place] # (Auto) 0.9 Eos # (Auto) 0.5 H Baso # (Auto) 0.0 Abs Immat Gran (auto) 0.07 H Absolute Neuts (auto) 4.4 Absolute Nucleated RBC 0.000 Nucleated RBC % (auto) 0.0 Sodium 144 Potassium 3.4 Chloride 107 Carbon Dioxide 29 Anion Gap 11 L BUN 13 Creatinine 1.29 Estim Creat Clear Calc 92.7 Estimated GFR > 60 Random Glucose 107 Fasting Glucose Estimat Average Glucose 94 Hemoglobin A1c % 4.9 Calcium 8.5 Magnesium 1.8 Iron TIBC % Saturation Unsat Iron Binding Total Bilirubin 0.6 Direct Bilirubin AST 69 H ALT 66 H Alkaline Phosphatase 44 Ammonia Lactate Dehydrogenase Total Creatine Kinase 2202 H D Total Protein 5.8 L Albumin 3.3 L Triglycerides Cholesterol LDL Cholesterol, Calc HDL Cholesterol Vitamin B12 Folate TSH Urine Color Urine Appearance Urine pH Ur Specific [place] Urine Protein Urine Glucose (UA) Urine Ketones Urine Blood Urine Nitrite Ur Leukocyte Esterase Urine RBC Urine WBC Ur Squamous Epith Cells Urine Bacteria Urine Opiates Screen Urine Fentanyl Screen Ur Barbiturates Screen Valproic Acid Ur Phencyclidine Scrn Ur Amphetamines Screen U Benzodiazepines Scrn Urine Cocaine Screen U Marijuana (THC) Screen Ethyl Alcohol COVID-19 (URI) COVID-19 Clin Com Influenza Type A (PCR) Influenza Type B (PCR) RSV RNA Qual (PCR) SARS-CoV-2 RNA (RT-PCR) 09/04/21 09/04/21 09/04/21 07:34 07:34 07:34 WBC 5.6 RBC 4.47 L Hgb 13.3 L Hct 40.5 L MCV 90.6 MCH 29.8 MCHC 32.8 RDW 12.8 Plt Count 210 MPV 9.0 L Immature Gran % (Auto) 1.8 H Neut % (Auto) 52.7 Lymph % (Auto) 27.5 [place] % (Auto) 12.6 H Eos % (Auto) 5.0 H Baso % (Auto) 0.4 Lymph # (Auto) 1.5 [place] # (Auto) 0.7 Eos # (Auto) 0.3 Baso # (Auto) 0.0 Abs Immat Gran (auto) 0.10 H Absolute Neuts (auto) 2.9 Absolute Nucleated RBC 0.000 Nucleated RBC % (auto) 0.0 Sodium 145 145 Potassium 4.6 D 4.6 Chloride 110 H 111 H Carbon Dioxide 24 23 Anion Gap 16 16 BUN 24 H D 24 H Creatinine 1.99 H 2.00 H Estim Creat Clear Calc 60.1 59.8 Estimated GFR 37 36 Random Glucose 109 Fasting Glucose 108 H D Estimat Average Glucose Hemoglobin A1c % Calcium 9.6 D 9.5 Magnesium Iron TIBC % Saturation Unsat Iron Binding Total Bilirubin 0.5 Direct Bilirubin AST 27 D ALT 45 H Alkaline Phosphatase 46 Ammonia Lactate Dehydrogenase Total Creatine Kinase 248 H D 245 H Total Protein 6.6 Albumin 3.8 Triglycerides Cholesterol LDL Cholesterol, Calc HDL Cholesterol Vitamin B12 Folate TSH Urine Color Urine Appearance Urine pH Ur Specific [place] Urine Protein Urine Glucose (UA) Urine Ketones Urine Blood Urine Nitrite Ur Leukocyte Esterase Urine RBC Urine WBC Ur Squamous Epith Cells Urine Bacteria Urine Opiates Screen Urine Fentanyl Screen Ur Barbiturates Screen Valproic Acid Ur Phencyclidine Scrn Ur Amphetamines Screen U Benzodiazepines Scrn Urine Cocaine Screen U Marijuana (THC) Screen Ethyl Alcohol COVID-19 (URI) COVID-19 Clin Com Influenza Type A (PCR) Influenza Type B (PCR) RSV RNA Qual (PCR) SARS-CoV-2 RNA (RT-PCR) 09/04/21 09/06/21 09/06/21 10:30 08:33 08:33 WBC RBC Hgb Hct MCV MCH MCHC RDW Plt Count MPV Immature Gran % (Auto) Neut % (Auto) Lymph % (Auto) [place] % (Auto) Eos % (Auto) Baso % (Auto) Lymph # (Auto) [place] # (Auto) Eos # (Auto) Baso # (Auto) Abs Immat Gran (auto) Absolute Neuts (auto) Absolute Nucleated RBC Nucleated RBC % (auto) Sodium 146 H 143 Potassium 4.6 4.6 Chloride 110 H 110 H Carbon Dioxide 26 23 Anion Gap 15 15 BUN 22 H 22 H Creatinine 1.86 H 1.77 H Estim Creat Clear Calc 64.3 67.5 Estimated GFR 40 42 Random Glucose 89 92 Fasting Glucose Estimat Average Glucose Hemoglobin A1c % Calcium 9.5 9.7 Magnesium Iron TIBC % Saturation Unsat Iron Binding Total Bilirubin Direct Bilirubin AST ALT Alkaline Phosphatase Ammonia Lactate Dehydrogenase Total Creatine Kinase Total Protein Albumin Triglycerides Cholesterol LDL Cholesterol, Calc HDL Cholesterol Vitamin B12 Folate TSH Cancelled 0.70 Urine Color Urine Appearance Urine pH Ur Specific [place] Urine Protein Urine Glucose (UA) Urine Ketones Urine Blood Urine Nitrite Ur Leukocyte Esterase Urine RBC Urine WBC Ur Squamous Epith Cells Urine Bacteria Urine Opiates Screen Urine Fentanyl Screen Ur Barbiturates Screen Valproic Acid Ur Phencyclidine Scrn Ur Amphetamines Screen U Benzodiazepines Scrn Urine Cocaine Screen U Marijuana (THC) Screen Ethyl Alcohol COVID-19 (URI) COVID-19 Clin Com Influenza Type A (PCR) Influenza Type B (PCR) RSV RNA Qual (PCR) SARS-CoV-2 RNA (RT-PCR) Assessment and Plan Final Anesthetic Review Family History of Problems with Anesthesia: No History of Problems with Anesthesia: No
--- NOTE | 2021-09-06 10:45 | HO.POSTANES ---
Post Anesthesia Evaluation Post Anesthesia Evaluation Vital Signs: Vital Signs Temp Pulse Resp BP Pulse Ox 09/06/21 10:25 66 16 113/78 97 09/06/21 10:09 70 16 98/63 97 09/06/21 09:54 72 16 101/67 97 09/06/21 09:50 74 16 103/68 99 09/06/21 09:45 75 12 110/72 98 09/06/21 09:40 98.5 F 77 16 113/78 98 09/06/21 09:13 97.0 F 86 14 111/76 97 09/06/21 08:31 97.1 F 86 20 132/86 97 Anesthesia: General Mental Status: Awake Pain Control: Satisfactory Nausea/Vomiting: None Hydration: Adequate Anesthesia-Related Issues: No Anes. Related Issues
--- NOTE | 2021-09-06 10:50 | P.PNPSI_ITS ---
Subjective Subjective Date of Service: 09/06/21 Reason For Visit: joleen Subjective Notes: Conditional Voluntary Healthcare Proxy: Yes Interim History: Patient with some improvement remains less aggressive and somewhat more redirectable. See ECT note. Erythematous area noted on face no obvious pruritis or other rash noted bitemporal ECT completed 2 L of fluid given chemistries ordered Mental Status Exam Mental Status Exam Patient Appearance: Disheveled Level of Consciousness: Awake and Restless Patient Behavior: Hyperactive, Restless, Invasion - Personal Space, Distractible and Impulsive Mood Description: Hostile, Anxious, Labile, Elated, Apprehensive and Expansive Affect Description: Euphoric, Hostile, Labile, Angry and Apprehensive Ability to Follow Directions: Fair Speech Pattern: Slurred, Garbled and Pressured Memory Description: Episodic Impaired and Working Impaired Hallucinations: None Delusions: Grandiose Thought Process: Racing Thought Content: positive for Racing and positive for Disorganized Depressive Symptoms: Increased Irritability Abnormal Motor Activity Signs and Symptoms: Aggression, Hyperactivity and Restl essness Judgement: Poor Diagnostics Vital Signs (24Hr): Vital Signs - 24 hr 09/05/21 18:19 09/06/21 08:31 09/06/21 09:13 Temperature 97.1 F 97.0 F Pulse Rate 80 86 86 Respiratory Rate 20 14 Blood Pressure 117/75 132/86 111/76 Pulse Oximetry 97 97 09/06/21 09:40 09/06/21 09:45 09/06/21 09:50 Temperature 98.5 F Pulse Rate 77 75 74 Respiratory Rate 16 12 16 Blood Pressure 113/78 110/72 103/68 Pulse Oximetry 98 98 99 09/06/21 09:54 09/06/21 10:09 09/06/21 10:25 Temperature Pulse Rate 72 70 66 Respiratory Rate 16 16 16 Blood Pressure 101/67 98/63 113/78 Pulse Oximetry 97 97 97 BMI result Body Mass Index 28.5 Labs Results: 09/04/21 07:34 09/06/21 08:33 Labs: Laboratory Results - last 48 hr 09/04/21 09/06/21 09/06/21 10:30 08:33 08:33 Sodium 146 H 143 Potassium 4.6 4.6 Chloride 110 H 110 H Carbon Dioxide 26 23 Anion Gap 15 15 BUN 22 H 22 H Creatinine 1.86 H 1.77 H Estim Creat Clear Calc 64.3 67.5 Estimated GFR 40 42 Random Glucose 89 92 Calcium 9.5 9.7 TSH Cancelled 0.70 Imaging Radiology Impressions: ITS Impressions Chest X-Ray 08/26/21 14:28 IMPRESSION: Low lung volume and nonspecific subtle bibasilar airspace disease, may represent hypoventilatory, atelectatic changes versus subtle infiltrate or combination thereof. No evidence of any dense airspace pneumonia. Medications Medications Current Medications Acetaminophen (Acetaminophen 325 Mg Tablet) 975 mg PO QID PRN PRN Reason: Mild Pain (Scale Score 1-4) Last Admin: 08/30/21 08:50 Dose: 975 mg Documented by: Al Hydroxide/Mg Hydroxide (Magnesium Hydrox/Alum Hydrox 30 Ml Oral.Susp) 30 ml PO Q6H PRN PRN Reason: Heartburn/Nausea Amlodipine Besylate (Amlodipine Besylate 10 Mg Tablet) 10 mg PO DAILY [facility]; Protocol Last Admin: 09/05/21 08:30 Dose: 10 mg Documented by: Aripiprazole (Aripiprazole Er 400 Mg Suser.Syr) 400 mg IM Q28D [facility] Last Admin: 08/20/21 14:09 Dose: 400 mg Documented by: Bisoprolol Fumarate (Bisoprolol Fumarate 5 Mg Tablet) 5 mg PO DAILY [facility] Last Admin: 09/05/21 08:30 Dose: 5 mg Documented by: Clonazepam (Clonazepam 1 Mg Tablet) 1 mg PO BID@0830,1330 [facility] Last Admin: 09/05/21 12:11 Dose: 1 mg Documented by: Clonazepam (Clonazepam 1 Mg Tablet) 2 mg PO BEDTIME [facility] Last Admin: 09/05/21 20:55 Dose: 2 mg Documented by: Diazepam (Diazepam 5 Mg Tablet) 5 mg PO TID PRN PRN Reason: anxiety/restlessness Last Admin: 09/05/21 16:50 Dose: 5 mg Documented by: Loperamide HCl (Loperamide Hcl 2 Mg Capsule) 2 mg PO Q4H PRN PRN Reason: Diarrhea Last Admin: 08/27/21 12:31 Dose: 2 mg Documented by: Magnesium Hydroxide (Milk Of Magnesia 30 Ml Oral.Susp) 30 ml PO DAILY PRN PRN Reason: Constipation Multivitamins/Vitamin C (Multivitamin Tablet) 1 tab PO DAILY [facility] Last Admin: 09/05/21 08:30 Dose: 1 tab Documented by: Nystatin (Nystatin Oral Susp 500,000 Unit/5 Ml Oral.Susp) 400,000 unit BUCCAL QID [facility]; Protocol Last Admin: 09/05/21 20:55 Dose: 400,000 unit Documented by: Olanzapine (Olanzapine 10 Mg Tablet) 10 mg PO TID [facility] Last Admin: 09/05/21 20:55 Dose: 10 mg Documented by: Quetiapine Fumarate (Quetiapine Fumarate 50 Mg Tablet) 150 mg PO Q4H PRN PRN Reason: Psychosis Last Admin: 09/05/21 16:49 Dose: 150 mg Documented by: Allergies Allergies Allergy/AdvReac Type Severity Reaction Status Date / Time haloperidol [From Haldol] Allergy Unknown Verified 07/22/20 03:38 Assessment & Plan Assessment & Plan (1) Bipolar affective disorder, mixed, severe, with psychotic behavior: Status: Acute Code(s): F31.64 - Bipolar disorder, current episode mixed, severe, with psychotic features Assessment and Plan: 09/04/21 Unclear questionable adverse effect from succinylcholine with normal to Path potassium an EKG. Anesthesiology present discussed not using succinylcholine next treatment but to use non dipole arising agent will lower beta-audrey encourage fluids creatinine elevated was given fluids at ECT 09/05/21 Remains manic psychotic inc zyprexa 10 tid inc klonapin 1 bid 2 hs cont ect hx nms has renal insuff encourage fluids 09/06/2021 Continue [address] ECT monitor facial redness for allergic reaction. Consider clozapine patient has not yet stabilized encourage fluids Continue to monitor renal function (2) Dyskinesia, tardive: Status: Acute Code(s): G24.01 - Drug induced subacute dyskinesia Plan See above continue ECT consider clozapine I spent minutes with the patient and/or on the patient floor today, greater than?50% of which was spent counseling/coordinating care. Reason for contiued inpatient stay Substantial Risk for: harm to others, inability to function, rapid decompensation and med/psych decompensation
[2021-09-06] MEDS: Multivitamin TABLET 1 TAB PO (11:22)
[2021-09-06] MEDS: amLODIPine Besylate 10 MG TABLET PO (11:22)
[2021-09-06] MEDS: OLANZapine 10 MG TABLET PO ×3 (11:22→19:37)
[2021-09-06] MEDS: Bisoprolol Fumarate 5 MG TABLET PO (11:22)
[2021-09-06] MEDS: Nystatin Oral Susp 500,000 UNIT/5 ML ORAL.SUSP 400000 UNIT BUCCAL ×3 (11:22→19:37)
[2021-09-06] MEDS: clonazePAM 1 MG TABLET PO (13:52)
[2021-09-06] MEDS: QUEtiapine Fumarate 50 MG TABLET 150 MG PO ×2 (15:45→19:37)
[2021-09-06] MEDS: diazePAM 5 MG TABLET PO ×2 (15:46→19:37)
[2021-09-06] MEDS: clonazePAM 1 MG TABLET 2 MG PO (19:36)
[2021-09-07] MEDS: diazePAM 5 MG TABLET PO ×4 (01:37→19:03)
[2021-09-07] MEDS: QUEtiapine Fumarate 50 MG TABLET 150 MG PO ×5 (01:37→19:03)
[2021-09-07] MEDS: clonazePAM 1 MG TABLET PO ×2 (07:26→14:04)
[2021-09-07] MEDS: Nystatin Oral Susp 500,000 UNIT/5 ML ORAL.SUSP 400000 UNIT BUCCAL ×4 (08:39→19:03)
[2021-09-07] MEDS: Multivitamin TABLET 1 TAB PO (08:39)
[2021-09-07] MEDS: OLANZapine 10 MG TABLET PO ×3 (08:39→19:03)
[2021-09-07] MEDS: amLODIPine Besylate 10 MG TABLET PO (08:39)
[2021-09-07] MEDS: Bisoprolol Fumarate 5 MG TABLET PO (08:40)
[2021-09-07 09:00] VITALS: BP 139/82; PULSE 95; RESP 22; TEMP 36.3; O2SAT 97
[2021-09-07 18:00] VITALS: BP 138/78; PULSE 79; TEMP 36.6; O2SAT 96
[2021-09-07] MEDS: clonazePAM 1 MG TABLET 2 MG PO (19:03)
--- NOTE | 2021-09-07 19:37 | PC.NURSE ---
This clinical writer sat with pt 2:1 for start of evening shift. Pt awake restless, unable to sit still. Pt napped for approximately 1 hour after medication. Patient is aggressive and impulsive and has poor boundaries. Pt continuously touching and grabbing at staff and clothing. Pt attempting to grab T/W pockets and pens. Pt grabbing wrists several times aggressively refusing to release with out several verbal prompts and physical removal. Pt pushing himself into staff aggressively. Pt speech is mumbled and nonsensical. Patient refused to eat supper, throwing items out of his room.
--- NOTE | 2021-09-07 21:55 | HO.PSYCHPN ---
Subjective Subjective Date of Service: 09/07/21 Reason For Visit: joleen Subjective Notes: Cruz Warning and Section 8 Healthcare Proxy: No Guardianship: No Medical Problems Affecting Mental Status: No Interim History: Patient seen and discussed with team. Pt slept 5 hours last night, also took an hour nap in the morning. No issues with incontinence, still not eating well. Patient evaluated today and upon interview he is disorganized, lacks insight, moving non-stop, intrusive, potentially assaultive, and difficult to redirect. In the milieu, patient requires a 2:1. Medication Compliance: Yes Side effects from medications: No Attending Groups: No Review of Systems Acute medical concerns: No Medical Review of Systems: unchanged Mental Status Exam Mental Status Exam Narrative: Patient Appearance:?Disheveled Level of Consciousness:?Awake and Restless Patient Behavior:?Hyperactive, Restless, Invasion - Personal Space, Distractible and Impulsive Mood Description:?Hostile, Anxious, Labile, Elated, Apprehensive and Expansive Affect Description:?Euphoric, Hostile, Labile, Angry and Apprehensive Ability to Follow Directions:?Fair Speech Pattern:?Slurred, Garbled and Pressured Memory Description:?Episodic Impaired and Working Impaired Hallucinations:?None Delusions:?Grandiose Thought Process:?Racing Thought Content:?positive for Racing and positive for Disorganized Depressive Symptoms:?Increased Irritability Abnormal Motor Activity Signs and Symptoms:?Aggression, Hyperactivity and Restlessness Judgment:?Poor Diagnostics Vital Signs (24Hr): Vital Signs - 24 hr 09/07/21 09:00 09/07/21 18:00 Temperature 97.4 F 97.8 F Pulse Rate 95 79 Respiratory Rate 22 H Blood Pressure 139/82 138/78 Pulse Oximetry 97 96 BMI result Body Mass Index 28.5 Labs Results: 09/09/21 09:11 09/09/21 09:11 Labs: Laboratory Results - last 48 hr 09/06/21 09/06/21 08:33 08:33 Sodium 143 Potassium 4.6 Chloride 110 H Carbon Dioxide 23 Anion Gap 15 BUN 22 H Creatinine 1.77 H Estim Creat Clear Calc 67.5 Estimated GFR 42 Random Glucose 92 Calcium 9.7 TSH Cancelled 0.70 Imaging Radiology Impressions: ITS Impressions Chest X-Ray 08/26/21 14:28 IMPRESSION: Low lung volume and nonspecific subtle bibasilar airspace disease, may represent hypoventilatory, atelectatic changes versus subtle infiltrate or combination thereof. No evidence of any dense airspace pneumonia. Medications Medications Current Medications Acetaminophen (Acetaminophen 325 Mg Tablet) 975 mg PO QID PRN PRN Reason: Mild Pain (Scale Score 1-4) Last Admin: 08/30/21 08:50 Dose: 975 mg Documented by: Al Hydroxide/Mg Hydroxide (Magnesium Hydrox/Alum Hydrox 30 Ml Oral.Susp) 30 ml PO Q6H PRN PRN Reason: Heartburn/Nausea Amlodipine Besylate (Amlodipine Besylate 10 Mg Tablet) 10 mg PO DAILY [facility]; Protocol Last Admin: 09/07/21 08:39 Dose: 10 mg Documented by: Aripiprazole (Aripiprazole Er 400 Mg Suser.Syr) 400 mg IM Q28D [facility] Last Admin: 08/20/21 14:09 Dose: 400 mg Documented by: Bisoprolol Fumarate (Bisoprolol Fumarate 5 Mg Tablet) 5 mg PO DAILY [facility] Last Admin: 09/07/21 08:40 Dose: 5 mg Documented by: Clonazepam (Clonazepam 1 Mg Tablet) 1 mg PO BID@0830,1330 [facility] Last Admin: 09/07/21 14:04 Dose: 1 mg Documented by: Clonazepam (Clonazepam 1 Mg Tablet) 2 mg PO BEDTIME [facility] Last Admin: 09/07/21 19:03 Dose: 2 mg Documented by: Diazepam (Diazepam 5 Mg Tablet) 5 mg PO TID PRN PRN Reason: anxiety/restlessness Last Admin: 09/07/21 19:03 Dose: 5 mg Documented by: Loperamide HCl (Loperamide Hcl 2 Mg Capsule) 2 mg PO Q4H PRN PRN Reason: Diarrhea Last Admin: 08/27/21 12:31 Dose: 2 mg Documented by: Magnesium Hydroxide (Milk Of Magnesia 30 Ml Oral.Susp) 30 ml PO DAILY PRN PRN Reason: Constipation Multivitamins/Vitamin C (Multivitamin Tablet) 1 tab PO DAILY [facility] Last Admin: 09/07/21 08:39 Dose: 1 tab Documented by: Nystatin (Nystatin Oral Susp 500,000 Unit/5 Ml Oral.Susp) 400,000 unit BUCCAL QID [facility]; Protocol Last Admin: 09/07/21 19:03 Dose: 400,000 unit Documented by: Olanzapine (Olanzapine 10 Mg Tablet) 10 mg PO TID [facility] Last Admin: 09/07/21 19:03 Dose: 10 mg Documented by: Quetiapine Fumarate (Quetiapine Fumarate 50 Mg Tablet) 150 mg PO Q4H PRN PRN Reason: Psychosis Last Admin: 09/07/21 19:03 Dose: 150 mg Documented by: Allergies Allergies Allergy/AdvReac Type Severity Reaction Status Date / Time haloperidol [From Haldol] Allergy Unknown Verified 07/22/20 03:38 Assessment & Plan Assessment & Plan (1) Bipolar affective disorder, mixed, severe, with psychotic behavior: Status: Acute Code(s): F31.64 - Bipolar disorder, current episode mixed, severe, with psychotic features Assessment and Plan: 09/04/21 Unclear questionable adverse effect from succinylcholine with normal to Path potassium an EKG. Anesthesiology present discussed not using succinylcholine next treatment but to use non dipole arising agent will lower beta-audrey encourage fluids creatinine elevated was given fluids at ECT 09/05/21 Remains manic psychotic inc zyprexa 10 tid inc klonapin 1 bid 2 hs cont ect hx nms has renal insuff encourage fluids 09/07/[address] and course of tx (2) Dyskinesia, tardive: Status: Acute Code(s): G24.01 - Drug induced subacute dyskinesia I spent minutes with the patient and/or on the patient floor today, greater than?50% of which was spent counseling/coordinating care. Reason for contiued inpatient stay Substantial Risk for: inability to function, rapid decompensation and med/psych decompensation
[2021-09-08] MEDS: amLODIPine Besylate 10 MG TABLET PO (08:46)
[2021-09-08] MEDS: Nystatin Oral Susp 500,000 UNIT/5 ML ORAL.SUSP 400000 UNIT BUCCAL ×4 (08:46→20:11)
[2021-09-08] MEDS: OLANZapine 10 MG TABLET PO ×3 (08:46→20:11)
[2021-09-08] MEDS: clonazePAM 1 MG TABLET PO ×2 (08:46→14:15)
[2021-09-08] MEDS: Multivitamin TABLET 1 TAB PO (08:46)
[2021-09-08] MEDS: Bisoprolol Fumarate 5 MG TABLET PO (08:46)
[2021-09-08 09:00] VITALS: BP 134/90; PULSE 97; RESP 22; TEMP 36.5; O2SAT 97
[2021-09-08] MEDS: diazePAM 5 MG TABLET PO (10:46)
[2021-09-08] MEDS: QUEtiapine Fumarate 50 MG TABLET 150 MG PO ×2 (10:46→20:37)
[2021-09-08 18:00] VITALS: PULSE 68; RESP 22; TEMP 36.6; O2SAT 99
[2021-09-08] MEDS: clonazePAM 1 MG TABLET 2 MG PO (20:10)
--- NOTE | 2021-09-08 20:20 | P.PNPSI_ITS ---
Subjective Subjective Date of Service: 09/08/21 Reason For Visit: joleen Subjective Notes: Cruz Warning and Section 8 Healthcare Proxy: No Guardianship: No Medical Problems Affecting Mental Status: No Interim History: Patient seen and discussed with team. Pt slept all night long. Patient evaluated today and upon interview he presents as disorganized, floridly manic. Tolerating ECT, may be more redirectable and sleeping more. In the milieu, patient is safe and appropriate in behavior. Denies SI/SIB/HI upon inquiry. Denies irritability or assaultive ideation. Says he feels safe. Medication Compliance: Yes Side effects from medications: No Attending Groups: No Review of Systems Acute medical concerns: No Medical Review of Systems: unchanged Mental Status Exam Mental Status Exam Narrative: Patient Appearance:?Disheveled Level of Consciousness:?Awake and Restless Patient Behavior:?Hyperactive, Restless, Invasion - Personal Space, Distractible and Impulsive Mood Description:?Hostile, Anxious, Labile, Elated, Apprehensive and Expansive Affect Description:?Euphoric, Hostile, Labile, Angry and Apprehensive Ability to Follow Directions:?Fair Speech Pattern:?Slurred, Garbled and Pressured Memory Description:?Episodic Impaired and Working Impaired Hallucinations:?None Delusions:?Grandiose Thought Process:?Racing Thought Content:?positive for Racing and positive for Disorganized Depressive Symptoms:?Increased Irritability Abnormal Motor Activity Signs and Symptoms:?Aggression, Hyperactivity and Restlessness Judgment:?Poor Diagnostics Vital Signs (24Hr): Vital Signs - 24 hr 09/09/21 05:55 09/09/21 06:35 09/09/21 06:59 Temperature 97.9 F 97.2 F 97.9 F Pulse Rate 108 H 102 H 108 H Respiratory Rate 20 20 Blood Pressure 122/78 107/82 122/78 Pulse Oximetry 96 96 96 09/09/21 07:25 09/09/21 07:30 09/09/21 07:35 Temperature 98.5 F Pulse Rate 88 83 84 Respiratory Rate 12 16 16 Blood Pressure 144/78 H 119/78 116/79 Pulse Oximetry 99 97 96 09/09/21 07:40 09/09/21 07:55 09/09/21 08:10 Temperature Pulse Rate 84 81 80 Respiratory Rate 16 16 16 Blood Pressure 116/77 115/77 114/78 Pulse Oximetry 96 96 91 L 09/09/21 08:25 09/09/21 08:40 09/09/21 08:55 Temperature Pulse Rate 79 76 74 Respiratory Rate 17 16 17 Blood Pressure 114/75 108/71 109/71 Pulse Oximetry 95 94 96 09/09/21 09:10 09/09/21 09:30 09/09/21 14:30 Temperature 97.6 F 96.7 F L 97.9 F Pulse Rate 78 79 71 Respiratory Rate 17 18 Blood Pressure 113/81 124/77 107/60 Pulse Oximetry 97 96 96 09/09/21 20:45 Temperature 97.6 F Pulse Rate 98 Respiratory Rate 20 Blood Pressure 129/76 Pulse Oximetry 96 BMI result Body Mass Index 28.5 Labs Results: 09/09/21 09:11 09/09/21 09:11 Labs: Laboratory Results - last 48 hr 09/09/21 09/09/21 09/09/21 09:11 09:11 09:11 WBC 4.7 L RBC 4.22 L Hgb 12.7 L Hct 38.3 L MCV 90.8 MCH 30.1 MCHC 33.2 RDW 12.9 Plt Count 260 MPV 9.5 Immature Gran % (Auto) 0.4 Neut % (Auto) 62.9 Lymph % (Auto) 18.9 L [place] % (Auto) 9.9 Eos % (Auto) 7.5 H Baso % (Auto) 0.4 Lymph # (Auto) 0.9 L [place] # (Auto) 0.5 Eos # (Auto) 0.4 Baso # (Auto) 0.0 Abs Immat Gran (auto) 0.02 Absolute Neuts (auto) 2.9 Absolute Nucleated RBC 0.000 Nucleated RBC % (auto) 0.0 ESR 17 H Sodium 142 Potassium 4.5 Chloride 109 H Carbon Dioxide 27 Anion Gap 11 L BUN 19 H Creatinine 1.80 H Estim Creat Clear Calc 66.4 Estimated GFR 41 Random Glucose 92 Calcium 9.3 Total Bilirubin 0.6 AST 26 ALT 35 Alkaline Phosphatase 50 Ammonia Total Protein 6.5 Albumin 3.9 Rheumatoid Factor 09/09/21 09/09/21 09:11 09:11 WBC RBC Hgb Hct MCV MCH MCHC RDW Plt Count MPV Immature Gran % (Auto) Neut % (Auto) Lymph % (Auto) [place] % (Auto) Eos % (Auto) Baso % (Auto) Lymph # (Auto) [place] # (Auto) Eos # (Auto) Baso # (Auto) Abs Immat Gran (auto) Absolute Neuts (auto) Absolute Nucleated RBC Nucleated RBC % (auto) ESR Sodium Potassium Chloride Carbon Dioxide Anion Gap BUN Creatinine Estim Creat Clear Calc Estimated GFR Random Glucose Calcium Total Bilirubin AST ALT Alkaline Phosphatase Ammonia 19 Total Protein Albumin Rheumatoid Factor < 15.0 Imaging Radiology Impressions: ITS Impressions Chest X-Ray 08/26/21 14:28 IMPRESSION: Low lung volume and nonspecific subtle bibasilar airspace disease, may represent hypoventilatory, atelectatic changes versus subtle infiltrate or combination thereof. No evidence of any dense airspace pneumonia. Medications Medications Current Medications Acetaminophen (Acetaminophen 325 Mg Tablet) 975 mg PO QID PRN PRN Reason: Mild Pain (Scale Score 1-4) Last Admin: 09/10/21 00:06 Dose: 975 mg Documented by: Al Hydroxide/Mg Hydroxide (Magnesium Hydrox/Alum Hydrox 30 Ml Oral.Susp) 30 ml PO Q6H PRN PRN Reason: Heartburn/Nausea Amlodipine Besylate (Amlodipine Besylate 10 Mg Tablet) 10 mg PO DAILY [facility]; Protocol Last Admin: 09/09/21 09:38 Dose: 10 mg Documented by: Aripiprazole (Aripiprazole Er 400 Mg Suser.Syr) 400 mg IM Q28D [facility] Last Admin: 08/20/21 14:09 Dose: 400 mg Documented by: Bisoprolol Fumarate (Bisoprolol Fumarate 5 Mg Tablet) 5 mg PO DAILY [facility] Last Admin: 09/09/21 09:39 Dose: 5 mg Documented by: Clonazepam (Clonazepam 1 Mg Tablet) 1 mg PO BID@0830,1330 [facility] Last Admin: 09/09/21 14:49 Dose: 1 mg Documented by: Clonazepam (Clonazepam 1 Mg Tablet) 2 mg PO BEDTIME [facility] Last Admin: 09/09/21 20:27 Dose: 2 mg Documented by: Diazepam (Diazepam 5 Mg Tablet) 5 mg PO TID PRN PRN Reason: anxiety/restlessness Last Admin: 09/10/21 00:05 Dose: 5 mg Documented by: Loperamide HCl (Loperamide Hcl 2 Mg Capsule) 2 mg PO Q4H PRN PRN Reason: Diarrhea Last Admin: 08/27/21 12:31 Dose: 2 mg Documented by: Magnesium Hydroxide (Milk Of Magnesia 30 Ml Oral.Susp) 30 ml PO DAILY PRN PRN Reason: Constipation Multivitamins/Vitamin C (Multivitamin Tablet) 1 tab PO DAILY [facility] Last Admin: 09/09/21 09:38 Dose: 1 tab Documented by: Nystatin (Nystatin Oral Susp 500,000 Unit/5 Ml Oral.Susp) 400,000 unit BUCCAL QID [facility]; Protocol Last Admin: 09/09/21 20:26 Dose: 400,000 unit Documented by: Olanzapine (Olanzapine 10 Mg Tablet) 10 mg PO TID [facility] Last Admin: 09/09/21 20:26 Dose: 10 mg Documented by: Quetiapine Fumarate (Quetiapine Fumarate 50 Mg Tablet) 150 mg PO Q4H PRN PRN Reason: Psychosis Last Admin: 09/10/21 00:06 Dose: 150 mg Documented by: Allergies Allergies Allergy/AdvReac Type Severity Reaction Status Date / Time haloperidol [From Haldol] Allergy Unknown Verified 07/22/20 03:38 Assessment & Plan Assessment & Plan (1) Bipolar affective disorder, mixed, severe, with psychotic behavior: Status: Acute Code(s): F31.64 - Bipolar disorder, current episode mixed, severe, with psychotic features Assessment and Plan: 09/04/21 Unclear questionable adverse effect from succinylcholine with normal to Path potassium an EKG. Anesthesiology present discussed not using succinylcholine next treatment but to use non dipole arising agent will lower beta-audrey encourage fluids creatinine elevated was given fluids at ECT 09/05/21 Remains manic psychotic inc zyprexa 10 tid inc klonapin 1 bid 2 hs cont ect hx nms has renal insuff encourage fluids 09/07/[address] E[address] and course of tx 09/08/21 continue current treatment (2) Dyskinesia, tardive: Status: Acute Code(s): G24.01 - Drug induced subacute dyskinesia I spent minutes with the patient and/or on the patient floor today, greater than?50% of which was spent counseling/coordinating care. Reason for contiued inpatient stay Substantial Risk for: inability to function, rapid decompensation and med/psych decompensation
[2021-09-09] VITALS (16 sets, daily range): BP systolic 107–144; BP diastolic 60–82; PULSE 71–108; RESP 12–20; TEMP 35.9–36.9; O2SAT 91–99
[2021-09-09] MEDS: QUEtiapine Fumarate 50 MG TABLET 150 MG PO ×2 (01:01→15:35)
--- NOTE | 2021-09-09 06:50 | HO.ANESPROP2 ---
[facility] Active Problems Active Problems: All Active Problems (Updated 08/20/21 @ 17:39 by Fredy Caldera DO) Physical exam (Acute) Bipolar affective disorder, mixed, severe, with psychotic behavior (Acute) Bipolar affective, manic, full remis (Acute) Hypertension (Acute) Hyperlipidemia (Acute) Dyskinesia, tardive (Acute) Manic behavior (Acute) Rash (Acute) Past Medical History Medical History HTN (hypertension) Kidney problem Functional capacity: independent ambulation Family History Family history of problems with anesthesia: No Surgical History History of Problems with Anesthesia: No Social History Social History Household Members: Spouse Household Members Other:: Housing: House Do you presently have visiting nurse or other home services: No Unable to assess alcohol history related to: Unknown Patient Tobacco Use Status: Tobacco use Unknown Second Hand Smoke Exposure: No Use of substances other than those prescribed or required for medical reasons: Unknown Currently Displaying Signs/Symptoms of Drug Intoxication Withdrawal: No Any prior treatment program specific to substance use: No Advance Directives: No Advance Directives Information Provided: No Advance Directives on File: No Healthcare Proxy: Yes Guardian: No Do you have thoughts of harming others: None Do you have a plan to hurt others: No Plan Recently lost weight without trying: Unsure How much weight loss: Unsure service: No Sexual orientation: Straight/Heterosexual Meds Allergies Allergy/AdvReac Type Severity Reaction Status Date / Time haloperidol [From Haldol] Allergy Unknown Verified 07/22/20 03:38 Active Medications: Current Medications Acetaminophen (Acetaminophen 325 Mg Tablet) 975 mg PO QID PRN PRN Reason: Mild Pain (Scale Score 1-4) Last Admin: 08/30/21 08:50 Dose: 975 mg Documented by: Al Hydroxide/Mg Hydroxide (Magnesium Hydrox/Alum Hydrox 30 Ml Oral.Susp) 30 ml PO Q6H PRN PRN Reason: Heartburn/Nausea Amlodipine Besylate (Amlodipine Besylate 10 Mg Tablet) 10 mg PO DAILY [facility]; Protocol Last Admin: 09/08/21 08:46 Dose: 10 mg Documented by: Aripiprazole (Aripiprazole Er 400 Mg Suser.Syr) 400 mg IM Q28D [facility] Last Admin: 08/20/21 14:09 Dose: 400 mg Documented by: Bisoprolol Fumarate (Bisoprolol Fumarate 5 Mg Tablet) 5 mg PO DAILY [facility] Last Admin: 09/08/21 08:46 Dose: 5 mg Documented by: Clonazepam (Clonazepam 1 Mg Tablet) 1 mg PO BID@0830,1330 [facility] Last Admin: 09/08/21 14:15 Dose: 1 mg Documented by: Clonazepam (Clonazepam 1 Mg Tablet) 2 mg PO BEDTIME [facility] Last Admin: 09/08/21 20:10 Dose: 2 mg Documented by: Loperamide HCl (Loperamide Hcl 2 Mg Capsule) 2 mg PO Q4H PRN PRN Reason: Diarrhea Last Admin: 08/27/21 12:31 Dose: 2 mg Documented by: Magnesium Hydroxide (Milk Of Magnesia 30 Ml Oral.Susp) 30 ml PO DAILY PRN PRN Reason: Constipation Multivitamins/Vitamin C (Multivitamin Tablet) 1 tab PO DAILY [facility] Last Admin: 09/08/21 08:46 Dose: 1 tab Documented by: Nystatin (Nystatin Oral Susp 500,000 Unit/5 Ml Oral.Susp) 400,000 unit BUCCAL QID [facility]; Protocol Last Admin: 09/08/21 20:11 Dose: 400,000 unit Documented by: Olanzapine (Olanzapine 10 Mg Tablet) 10 mg PO TID [facility] Last Admin: 09/08/21 20:11 Dose: 10 mg Documented by: Quetiapine Fumarate (Quetiapine Fumarate 50 Mg Tablet) 150 mg PO Q4H PRN PRN Reason: Psychosis Last Admin: 09/09/21 01:01 Dose: 150 mg Documented by: Home Medications Medication Instructions Recorded Confirmed Last Taken Type acetaminophen 500 mg tablet 1,000 mg PO QID PRN 08/16/21 08/16/21 Unknown History (Tylenol Extra Strength) amlodipine 10 mg tablet 1 tab PO DAILY 08/16/21 08/16/21 Unknown History aripiprazole 400 mg intramuscular 400 mg IM QMONTH 08/16/21 08/16/21 Unknown History suspension,extended release (Abilify Maintena) bisoprolol 10 1 tab PO DAILY 08/16/21 08/16/21 Unknown History mg-hydrochlorothiazide 6.25 mg tablet multivitamin 1 tab PO DAILY 08/16/21 08/16/21 Unknown History vitamin B complex 1 tab PO DAILY 08/16/21 08/16/21 Unknown History Exam Exam Date and Time: September 09, 2021 0650 Height,Weight and Vital Signs: Height 6 ft 2 in Weight 101 kg Last Vital Signs Temp 97.2 F 09/09/21 06:35 Pulse 102 H 09/09/21 06:35 Resp 20 09/09/21 06:35 BP 107/82 09/09/21 06:35 Pulse Ox 96 09/09/21 06:35 Pertinent Lab Results Pertinent Lab Results: Laboratory Tests 08/16/21 08/16/21 08/16/21 16:05 16:42 16:42 WBC RBC Hgb Hct MCV MCH MCHC RDW Plt Count MPV Immature Gran % (Auto) Neut % (Auto) Lymph % (Auto) [place] % (Auto) Eos % (Auto) Baso % (Auto) Lymph # (Auto) [place] # (Auto) Eos # (Auto) Baso # (Auto) Abs Immat Gran (auto) Absolute Neuts (auto) Absolute Nucleated RBC Nucleated RBC % (auto) Sodium Potassium Chloride Carbon Dioxide Anion Gap BUN Creatinine Estim Creat Clear Calc Estimated GFR Random Glucose Fasting Glucose Estimat Average Glucose Hemoglobin A1c % Calcium Magnesium Iron TIBC % Saturation Unsat Iron Binding Total Bilirubin Direct Bilirubin AST ALT Alkaline Phosphatase Ammonia Lactate Dehydrogenase Total Creatine Kinase Total Protein Albumin Triglycerides Cholesterol LDL Cholesterol, Calc HDL Cholesterol Vitamin B12 Folate TSH Urine Color YELLOW Urine Appearance CLEAR Urine pH 6.0 Ur Specific [place] 1.010 Urine Protein 2+ H Urine Glucose (UA) NEG Urine Ketones NEG Urine Blood 2+ H Urine Nitrite NEG Ur Leukocyte Esterase NEG Urine RBC 5-9 H Urine WBC 0 Ur Squamous Epith Cells NONE Urine Bacteria NONE Urine Opiates Screen Not Detected Urine Fentanyl Screen Not Detected Ur Barbiturates Screen Not Detected Valproic Acid Ur Phencyclidine Scrn Not Detected Ur Amphetamines Screen Not Detected U Benzodiazepines Scrn Not Detected Urine Cocaine Screen Not Detected U Marijuana (THC) Screen Not Detected Ethyl Alcohol COVID-19 (URI) Negative COVID-19 Clin Com See Note Influenza Type A (PCR) Influenza Type B (PCR) RSV RNA Qual (PCR) SARS-CoV-2 RNA (RT-PCR) 08/16/21 08/16/21 08/16/21 16:51 16:51 16:51 WBC 7.8 RBC 4.83 Hgb 14.8 Hct 42.1 MCV 87.2 MCH 30.6 MCHC 35.2 RDW 12.7 Plt Count 226 MPV 9.3 L Immature Gran % (Auto) 0.4 Neut % (Auto) 72.1 Lymph % (Auto) 15.1 L [place] % (Auto) 8.5 Eos % (Auto) 3.5 Baso % (Auto) 0.4 Lymph # (Auto) 1.2 [place] # (Auto) 0.7 Eos # (Auto) 0.3 Baso # (Auto) 0.0 Abs Immat Gran (auto) 0.03 Absolute Neuts (auto) 5.6 Absolute Nucleated RBC 0.000 Nucleated RBC % (auto) 0.0 Sodium 138 Potassium 3.9 Chloride 102 Carbon Dioxide 24 Anion Gap 16 BUN 16 Creatinine 1.49 H Estim Creat Clear Calc 80.2 Estimated GFR 51 Random Glucose 117 H Fasting Glucose Estimat Average Glucose Hemoglobin A1c % Calcium 10.1 D Magnesium Iron TIBC % Saturation Unsat Iron Binding Total Bilirubin 0.7 Direct Bilirubin AST 47 H D ALT 63 H Alkaline Phosphatase 56 Ammonia Lactate Dehydrogenase Total Creatine Kinase Total Protein 8.2 H D Albumin 4.9 D Triglycerides Cholesterol LDL Cholesterol, Calc HDL Cholesterol Vitamin B12 Folate TSH Urine Color Urine Appearance Urine pH Ur Specific [place] Urine Protein Urine Glucose (UA) Urine Ketones Urine Blood Urine Nitrite Ur Leukocyte Esterase Urine RBC Urine WBC Ur Squamous Epith Cells Urine Bacteria Urine Opiates Screen Urine Fentanyl Screen Ur Barbiturates Screen Valproic Acid Ur Phencyclidine Scrn Ur Amphetamines Screen U Benzodiazepines Scrn Urine Cocaine Screen U Marijuana (THC) Screen Ethyl Alcohol < 10 COVID-19 (URI) COVID-19 Clin Com Influenza Type A (PCR) Influenza Type B (PCR) RSV RNA Qual (PCR) SARS-CoV-2 RNA (RT-PCR) 08/17/21 08/17/21 08/17/21 06:42 06:42 06:42 WBC RBC Hgb Hct MCV MCH MCHC RDW Plt Count MPV Immature Gran % (Auto) Neut % (Auto) Lymph % (Auto) [place] % (Auto) Eos % (Auto) Baso % (Auto) Lymph # (Auto) [place] # (Auto) Eos # (Auto) Baso # (Auto) Abs Immat Gran (auto) Absolute Neuts (auto) Absolute Nucleated RBC Nucleated RBC % (auto) Sodium 138 Potassium 3.9 Chloride 102 Carbon Dioxide 24 Anion Gap 16 BUN 12 Creatinine 1.47 H Estim Creat Clear Calc 81.3 Estimated GFR 52 Random Glucose Fasting Glucose 112 H Estimat Average Glucose 97 Hemoglobin A1c % 5.0 Calcium 10.2 Magnesium Iron TIBC % Saturation Unsat Iron Binding Total Bilirubin 1.2 H Direct Bilirubin AST 48 H ALT 65 H Alkaline Phosphatase 56 Ammonia Lactate Dehydrogenase Total Creatine Kinase Total Protein 8.5 H Albumin 4.9 Triglycerides 133 Cholesterol 226 D LDL Cholesterol, Calc 152 HDL Cholesterol 48 D Vitamin B12 558 Folate > 20.0 TSH 1.87 Urine Color Urine Appearance Urine pH Ur Specific [place] Urine Protein Urine Glucose (UA) Urine Ketones Urine Blood Urine Nitrite Ur Leukocyte Esterase Urine RBC Urine WBC Ur Squamous Epith Cells Urine Bacteria Urine Opiates Screen Urine Fentanyl Screen Ur Barbiturates Screen Valproic Acid Ur Phencyclidine Scrn Ur Amphetamines Screen U Benzodiazepines Scrn Urine Cocaine Screen U Marijuana (THC) Screen Ethyl Alcohol COVID-19 (URI) COVID-19 Clin Com Influenza Type A (PCR) Influenza Type B (PCR) RSV RNA Qual (PCR) SARS-CoV-2 RNA (RT-PCR) 08/24/21 08/24/21 08/25/21 07:19 07:19 17:19 WBC 5.9 RBC 4.04 L Hgb 12.2 L Hct 35.1 L MCV 86.9 MCH 30.2 MCHC 34.8 RDW 12.6 Plt Count 189 MPV 9.2 L Immature Gran % (Auto) 0.3 Neut % (Auto) 68.7 Lymph % (Auto) 16.5 L [place] % (Auto) 10.8 Eos % (Auto) 3.5 Baso % (Auto) 0.2 Lymph # (Auto) 1.0 L [place] # (Auto) 0.6 Eos # (Auto) 0.2 Baso # (Auto) 0.0 Abs Immat Gran (auto) 0.02 Absolute Neuts (auto) 4.1 Absolute Nucleated RBC 0.000 Nucleated RBC % (auto) 0.0 Sodium 141 141 Potassium 3.1 L D 3.0 L Chloride 105 102 Carbon Dioxide 24 27 Anion Gap 15 15 BUN 17 H 13 Creatinine 1.68 H 1.45 H Estim Creat Clear Calc 71.2 82.5 Estimated GFR 45 53 Random Glucose Fasting Glucose 90 Estimat Average Glucose Hemoglobin A1c % Calcium 9.1 D Magnesium Iron TIBC % Saturation Unsat Iron Binding Total Bilirubin 0.7 0.5 Direct Bilirubin 0.2 AST 120 H 119 H ALT 47 H 56 H Alkaline Phosphatase 45 43 Ammonia Lactate Dehydrogenase 472 H Total Creatine Kinase 6578 H Total Protein 6.2 L D 5.8 L Albumin 3.8 D 3.5 Triglycerides Cholesterol LDL Cholesterol, Calc HDL Cholesterol Vitamin B12 Folate TSH Urine Color Urine Appearance Urine pH Ur Specific [place] Urine Protein Urine Glucose (UA) Urine Ketones Urine Blood Urine Nitrite Ur Leukocyte Esterase Urine RBC Urine WBC Ur Squamous Epith Cells Urine Bacteria Urine Opiates Screen Urine Fentanyl Screen Ur Barbiturates Screen Valproic Acid 103.1 H Ur Phencyclidine Scrn Ur Amphetamines Screen U Benzodiazepines Scrn Urine Cocaine Screen U Marijuana (THC) Screen Ethyl Alcohol COVID-19 (URI) COVID-19 Clin Com Influenza Type A (PCR) Influenza Type B (PCR) RSV RNA Qual (PCR) SARS-CoV-2 RNA (RT-PCR) 08/25/21 08/26/21 08/26/21 17:19 07:53 07:53 WBC 5.6 RBC 3.90 L Hgb 11.9 L Hct 34.4 L MCV 88.2 MCH 30.5 MCHC 34.6 RDW 12.9 Plt Count 183 MPV 9.1 L Immature Gran % (Auto) 0.5 H Neut % (Auto) 62.7 Lymph % (Auto) 18.9 L [place] % (Auto) 10.9 Eos % (Auto) 6.6 H Baso % (Auto) 0.4 Lymph # (Auto) 1.1 L [place] # (Auto) 0.6 Eos # (Auto) 0.4 Baso # (Auto) 0.0 Abs Immat Gran (auto) 0.03 Absolute Neuts (auto) 3.5 Absolute Nucleated RBC 0.000 Nucleated RBC % (auto) 0.0 Sodium 144 Cancelled Potassium 3.9 D Cancelled Chloride 105 Cancelled Carbon Dioxide 26 Cancelled Anion Gap 17 Cancelled BUN 11 Creatinine 1.26 Estim Creat Clear Calc 94.9 Estimated GFR > 60 Random Glucose 93 Fasting Glucose Estimat Average Glucose Hemoglobin A1c % Calcium 9.1 Magnesium Cancelled Iron TIBC % Saturation Unsat Iron Binding Total Bilirubin Direct Bilirubin AST ALT Alkaline Phosphatase Ammonia Lactate Dehydrogenase Total Creatine Kinase 5470 H Total Protein Albumin Triglycerides Cholesterol LDL Cholesterol, Calc HDL Cholesterol Vitamin B12 Folate TSH Urine Color Urine Appearance Urine pH Ur Specific [place] Urine Protein Urine Glucose (UA) Urine Ketones Urine Blood Urine Nitrite Ur Leukocyte Esterase Urine RBC Urine WBC Ur Squamous Epith Cells Urine Bacteria Urine Opiates Screen Urine Fentanyl Screen Ur Barbiturates Screen Valproic Acid Ur Phencyclidine Scrn Ur Amphetamines Screen U Benzodiazepines Scrn Urine Cocaine Screen U Marijuana (THC) Screen Ethyl Alcohol COVID-19 (URI) COVID-19 Clin Com Influenza Type A (PCR) Influenza Type B (PCR) RSV RNA Qual (PCR) SARS-CoV-2 RNA (RT-PCR) 08/26/21 08/26/21 08/27/21 07:53 14:30 08:19 WBC 7.0 5.0 3.8 L RBC 4.35 L 4.17 L 4.41 L Hgb 13.5 L 12.5 L 13.5 L Hct 38.5 L 37.1 L 40.3 L MCV 88.5 89.0 91.4 MCH 31.0 30.0 30.6 MCHC 35.1 33.7 33.5 RDW 12.9 12.8 13.2 Plt Count 200 191 178 MPV 9.4 9.5 9.8 Immature Gran % (Auto) 0.4 1.1 H Neut % (Auto) 86.8 H 74.0 H Lymph % (Auto) 3.9 L 11.9 L [place] % (Auto) 5.6 11.4 H Eos % (Auto) 3.2 1.1 Baso % (Auto) 0.1 0.5 Lymph # (Auto) 0.3 L 0.5 L [place] # (Auto) 0.4 0.4 Eos # (Auto) 0.2 0.0 Baso # (Auto) 0.0 0.0 Abs Immat Gran (auto) 0.03 0.04 H Absolute Neuts (auto) 6.0 2.8 Absolute Nucleated RBC 0.000 0.000 0.000 Nucleated RBC % (auto) 0.0 0.0 0.0 Sodium Potassium Chloride Carbon Dioxide Anion Gap BUN Creatinine Estim Creat Clear Calc Estimated GFR Random Glucose Fasting Glucose Estimat Average Glucose Hemoglobin A1c % Calcium Magnesium Iron TIBC % Saturation Unsat Iron Binding Total Bilirubin Direct Bilirubin AST ALT Alkaline Phosphatase Ammonia Lactate Dehydrogenase Total Creatine Kinase Total Protein Albumin Triglycerides Cholesterol LDL Cholesterol, Calc HDL Cholesterol Vitamin B12 Folate TSH Urine Color Urine Appearance Urine pH Ur Specific [place] Urine Protein Urine Glucose (UA) Urine Ketones Urine Blood Urine Nitrite Ur Leukocyte Esterase Urine RBC Urine WBC Ur Squamous Epith Cells Urine Bacteria Urine Opiates Screen Urine Fentanyl Screen Ur Barbiturates Screen Valproic Acid Ur Phencyclidine Scrn Ur Amphetamines Screen U Benzodiazepines Scrn Urine Cocaine Screen U Marijuana (THC) Screen Ethyl Alcohol COVID-19 (URI) COVID-19 Clin Com Influenza Type A (PCR) Influenza Type B (PCR) RSV RNA Qual (PCR) SARS-CoV-2 RNA (RT-PCR) 08/27/21 08/27/21 08/27/21 08:19 08:19 13:58 WBC RBC Hgb Hct MCV MCH MCHC RDW Plt Count MPV Immature Gran % (Auto) Neut % (Auto) Lymph % (Auto) [place] % (Auto) Eos % (Auto) Baso % (Auto) Lymph # (Auto) [place] # (Auto) Eos # (Auto) Baso # (Auto) Abs Immat Gran (auto) Absolute Neuts (auto) Absolute Nucleated RBC Nucleated RBC % (auto) Sodium 144 Potassium 3.8 Chloride 107 Carbon Dioxide 24 Anion Gap 17 BUN 21 H D Creatinine 1.54 H Estim Creat Clear Calc 77.6 Estimated GFR 49 Random Glucose Fasting Glucose 75 Estimat Average Glucose Hemoglobin A1c % Calcium 8.8 Magnesium Iron 24 L TIBC 245 % Saturation 10 L Unsat Iron Binding 221 Total Bilirubin 0.6 Direct Bilirubin AST 102 H ALT 73 H Alkaline Phosphatase 47 Ammonia 45 Lactate Dehydrogenase Total Creatine Kinase 3624 H Total Protein 6.0 L Albumin 3.5 Triglycerides Cholesterol LDL Cholesterol, Calc HDL Cholesterol Vitamin B12 Folate TSH Urine Color Urine Appearance Urine pH Ur Specific [place] Urine Protein Urine Glucose (UA) Urine Ketones Urine Blood Urine Nitrite Ur Leukocyte Esterase Urine RBC Urine WBC Ur Squamous Epith Cells Urine Bacteria Urine Opiates Screen Urine Fentanyl Screen Ur Barbiturates Screen Valproic Acid Ur Phencyclidine Scrn Ur Amphetamines Screen U Benzodiazepines Scrn Urine Cocaine Screen U Marijuana (THC) Screen Ethyl Alcohol COVID-19 (URI) COVID-19 Clin Com Influenza Type A (PCR) NEGATIVE Influenza Type B (PCR) NEGATIVE RSV RNA Qual (PCR) NEGATIVE SARS-CoV-2 RNA (RT-PCR) NEGATIVE 08/28/21 08/29/21 08/29/21 08:59 07:10 07:10 WBC 7.0 RBC 4.18 L Hgb 12.6 L Hct 37.2 L MCV 89.0 MCH 30.1 MCHC 33.9 RDW 13.2 Plt Count 204 MPV 8.9 L Immature Gran % (Auto) 1.0 H Neut % (Auto) 62.8 Lymph % (Auto) 16.3 L [place] % (Auto) 12.9 H Eos % (Auto) 6.7 H Baso % (Auto) 0.3 Lymph # (Auto) 1.1 L [place] # (Auto) 0.9 Eos # (Auto) 0.5 H Baso # (Auto) 0.0 Abs Immat Gran (auto) 0.07 H Absolute Neuts (auto) 4.4 Absolute Nucleated RBC 0.000 Nucleated RBC % (auto) 0.0 Sodium 144 Potassium 3.4 Chloride 107 Carbon Dioxide 29 Anion Gap 11 L BUN 13 Creatinine 1.29 Estim Creat Clear Calc 92.7 Estimated GFR > 60 Random Glucose 107 Fasting Glucose Estimat Average Glucose 94 Hemoglobin A1c % 4.9 Calcium 8.5 Magnesium 1.8 Iron TIBC % Saturation Unsat Iron Binding Total Bilirubin 0.6 Direct Bilirubin AST 69 H ALT 66 H Alkaline Phosphatase 44 Ammonia Lactate Dehydrogenase Total Creatine Kinase 2202 H D Total Protein 5.8 L Albumin 3.3 L Triglycerides Cholesterol LDL Cholesterol, Calc HDL Cholesterol Vitamin B12 Folate TSH Urine Color Urine Appearance Urine pH Ur Specific [place] Urine Protein Urine Glucose (UA) Urine Ketones Urine Blood Urine Nitrite Ur Leukocyte Esterase Urine RBC Urine WBC Ur Squamous Epith Cells Urine Bacteria Urine Opiates Screen Urine Fentanyl Screen Ur Barbiturates Screen Valproic Acid Ur Phencyclidine Scrn Ur Amphetamines Screen U Benzodiazepines Scrn Urine Cocaine Screen U Marijuana (THC) Screen Ethyl Alcohol COVID-19 (URI) COVID-19 Clin Com Influenza Type A (PCR) Influenza Type B (PCR) RSV RNA Qual (PCR) SARS-CoV-2 RNA (RT-PCR) 09/04/21 09/04/21 09/04/21 07:34 07:34 07:34 WBC 5.6 RBC 4.47 L Hgb 13.3 L Hct 40.5 L MCV 90.6 MCH 29.8 MCHC 32.8 RDW 12.8 Plt Count 210 MPV 9.0 L Immature Gran % (Auto) 1.8 H Neut % (Auto) 52.7 Lymph % (Auto) 27.5 [place] % (Auto) 12.6 H Eos % (Auto) 5.0 H Baso % (Auto) 0.4 Lymph # (Auto) 1.5 [place] # (Auto) 0.7 Eos # (Auto) 0.3 Baso # (Auto) 0.0 Abs Immat Gran (auto) 0.10 H Absolute Neuts (auto) 2.9 Absolute Nucleated RBC 0.000 Nucleated RBC % (auto) 0.0 Sodium 145 145 Potassium 4.6 D 4.6 Chloride 110 H 111 H Carbon Dioxide 24 23 Anion Gap 16 16 BUN 24 H D 24 H Creatinine 1.99 H 2.00 H Estim Creat Clear Calc 60.1 59.8 Estimated GFR 37 36 Random Glucose 109 Fasting Glucose 108 H D Estimat Average Glucose Hemoglobin A1c % Calcium 9.6 D 9.5 Magnesium Iron TIBC % Saturation Unsat Iron Binding Total Bilirubin 0.5 Direct Bilirubin AST 27 D ALT 45 H Alkaline Phosphatase 46 Ammonia Lactate Dehydrogenase Total Creatine Kinase 248 H D 245 H Total Protein 6.6 Albumin 3.8 Triglycerides Cholesterol LDL Cholesterol, Calc HDL Cholesterol Vitamin B12 Folate TSH Urine Color Urine Appearance Urine pH Ur Specific [place] Urine Protein Urine Glucose (UA) Urine Ketones Urine Blood Urine Nitrite Ur Leukocyte Esterase Urine RBC Urine WBC Ur Squamous Epith Cells Urine Bacteria Urine Opiates Screen Urine Fentanyl Screen Ur Barbiturates Screen Valproic Acid Ur Phencyclidine Scrn Ur Amphetamines Screen U Benzodiazepines Scrn Urine Cocaine Screen U Marijuana (THC) Screen Ethyl Alcohol COVID-19 (URI) COVID-19 Clin Com Influenza Type A (PCR) Influenza Type B (PCR) RSV RNA Qual (PCR) SARS-CoV-2 RNA (RT-PCR) 09/04/21 09/06/21 09/06/21 10:30 08:33 08:33 WBC RBC Hgb Hct MCV MCH MCHC RDW Plt Count MPV Immature Gran % (Auto) Neut % (Auto) Lymph % (Auto) [place] % (Auto) Eos % (Auto) Baso % (Auto) Lymph # (Auto) [place] # (Auto) Eos # (Auto) Baso # (Auto) Abs Immat Gran (auto) Absolute Neuts (auto) Absolute Nucleated RBC Nucleated RBC % (auto) Sodium 146 H 143 Potassium 4.6 4.6 Chloride 110 H 110 H Carbon Dioxide 26 23 Anion Gap 15 15 BUN 22 H 22 H Creatinine 1.86 H 1.77 H Estim Creat Clear Calc 64.3 67.5 Estimated GFR 40 42 Random Glucose 89 92 Fasting Glucose Estimat Average Glucose Hemoglobin A1c % Calcium 9.5 9.7 Magnesium Iron TIBC % Saturation Unsat Iron Binding Total Bilirubin Direct Bilirubin AST ALT Alkaline Phosphatase Ammonia Lactate Dehydrogenase Total Creatine Kinase Total Protein Albumin Triglycerides Cholesterol LDL Cholesterol, Calc HDL Cholesterol Vitamin B12 Folate TSH Cancelled 0.70 Urine Color Urine Appearance Urine pH Ur Specific [place] Urine Protein Urine Glucose (UA) Urine Ketones Urine Blood Urine Nitrite Ur Leukocyte Esterase Urine RBC Urine WBC Ur Squamous Epith Cells Urine Bacteria Urine Opiates Screen Urine Fentanyl Screen Ur Barbiturates Screen Valproic Acid Ur Phencyclidine Scrn Ur Amphetamines Screen U Benzodiazepines Scrn Urine Cocaine Screen U Marijuana (THC) Screen Ethyl Alcohol COVID-19 (URI) COVID-19 Clin Com Influenza Type A (PCR) Influenza Type B (PCR) RSV RNA Qual (PCR) SARS-CoV-2 RNA (RT-PCR) Airway Mallampati Class: II TM Dist: >3cm Neck ROM: Full Heart: rrr Lungs: cta Assessment and Plan Assessment Anesthesia Assessment: Anesthesia Plan Discussed and Chart Reviewed Final Anesthetic Review Family History of Problems with Anesthesia: No History of Problems with Anesthesia: No NPO: Yes ASA Class: III Final Preanesthetic Review: No Changes in Pt Med Stat, Meds/Allgs Chart Reviewed and Consent Obtained/Reviewed Patient Risk: Intermediate Procedure Risk: Intermediate Anesthetic Plan Anesthetic Plan: GA Disposition: Standard PACU
--- NOTE | 2021-09-09 07:08 | MHC.SHP ---
Pre-Procedural Eval Section A Date of Service: 09/09/21 The patient is an INPATIENT: Yes Changes since office visit: Yes Changes in Medication; No Cold of Flu in the past 2 weeks, No New Medical Problems and No Patient answered all questions The History & Physical has been completed within 30 days and I have reviewed it.: Yes Section B Chief Complaint: joleen Allergies: Allergies Allergy/AdvReac Type Severity Reaction Status Date / Time haloperidol [From Haldol] Allergy Unknown Verified 07/22/20 03:38 Plan I have reviewed the history and physical and performed a pertinent physical examination on my patient. No changes have occurred unless specified.
--- NOTE | 2021-09-09 07:08 | HO.ECTPROC ---
ECT Procedure Note Diagnosis/Treatment Date of Service: 09/09/21 Diagnosis: Bipolar disorder Previous ECT Date: 09/06/21 Current Treatment Number: 8 Treatment: Series Interval Clinical Notes: previous ect not biol effective some decrease agitation must use flumazenil!! ECT Settings Device: THYMATRON DGx Electrode Placement: Bitemporal Program/Pulse Width: 0.50 Energy Percent: 100 Seizure Duration By EEG (in seconds): 51 Medications Administration General Anesthetic: Etomidate (14) Muscle Relaxant: Rocuronium (50 then suggamedex) Ancillary Medications Anti-emetics: Zofran - Pre ECT Miscillaneous Medications: Flumazenil Airway Management Airway Management: Bag Mask Ventilation Treatment Recommendations No Changes Recommended: No change Notes: must use flumazenil Pt Tolerated Procedure w/o Issue: Yes
[2021-09-09 09:19] LABS: MANUAL DIFF FLAG NO
[2021-09-09 09:23] LABS: Basophils Percent Auto 0.4 % (0-2); Eosinophils Absolute Auto 0.4 X10*3/uL (0.0-0.4); Eosinophils Percent Auto 7.5 % (0-4); Hematocrit 38.3 % (42.0-52.0); Hemoglobin 12.7 g/dl (14.0-18.0); Imm Gran Abs Auto 0.02 X10*3/uL (0.00-0.03); Imm Gran Pct Auto 0.4 % (0.0-0.4); Lymphocytes Absolute Auto 0.9 X10*3/uL (1.2-4.9); Lymphocytes Percent Auto 18.9 % (20-40); Mean Corpuscular HGB Conc 33.2 g/dl (31.0-36.0); Mean Corpuscular Hemoglobin 30.1 pg (27.0-33.0); Mean Corpuscular Volume 90.8 fL (80.0-98.0); Mean Platelet Volume 9.5 fL (9.4-12.4); Monocytes Absolute Auto 0.5 X10*3/uL (0.1-1.2); Monocytes Percent Auto 9.9 % (2-11); Neutrophils Absolute Auto 2.9 x10*3/uL (2.0-8.3); Neutrophils Percent Auto 62.9 % (45-73); Platelet Count 260 X10*3/uL (160-400); Red Blood Count 4.22 X10*6/uL (4.60-5.80); Red Cell Distribution Width 12.9 % (11.0-16.0); White Blood Count 4.7 X10*3/uL (4.8-10.8)
[2021-09-09 09:35] LABS: Ammonia 19 umol/L (13-55); Rheumatoid Factor < 15.0 IU/mL (<15.0)
[2021-09-09] MEDS: Nystatin Oral Susp 500,000 UNIT/5 ML ORAL.SUSP 400000 UNIT BUCCAL ×4 (09:38→20:26)
[2021-09-09] MEDS: amLODIPine Besylate 10 MG TABLET PO (09:38)
[2021-09-09] MEDS: Multivitamin TABLET 1 TAB PO (09:38)
[2021-09-09] MEDS: OLANZapine 10 MG TABLET PO ×3 (09:38→20:26)
[2021-09-09 09:39] LABS: Alanine Aminotransferase 35 U/L (0-40); Albumin Level 3.9 g/dL (3.5-5.0); Alkaline Phosphatase 50 U/L (39-117); Anion Gap 11 (12-20); Aspartate Amino Transferase 26 U/L (5-37); Bilirubin Total 0.6 mg/dL (0.0-1.0); Blood Urea Nitrogen 19 mg/dL (9-16); Calcium 9.3 mg/dL (8.4-10.2); Carbon Dioxide 27 mmol/L (22-29); Chloride 109 mmol/L (96-108); Creatinine Clr Calc Pharmacy 66.4; Estimated Glomerular Filt Rate 41; Glucose Random 92 mg/dL (60-115); Potassium 4.5 mmol/L (3.3-5.1); Sodium 142 mmol/L (135-145); Total Protein 6.5 g/dL (6.5-8.0)
[2021-09-09] MEDS: clonazePAM 1 MG TABLET PO ×2 (09:39→14:49)
[2021-09-09] MEDS: Bisoprolol Fumarate 5 MG TABLET PO (09:39)
[2021-09-09 10:10] LABS: Erythrocyte Sedimentation Rate 17 MM/HR (0-15)
--- NOTE | 2021-09-09 17:01 | P.PNPSI_ITS ---
Subjective Subjective Date of Service: 09/09/21 Reason For Visit: joleen Subjective Notes: Conditional Voluntary Healthcare Proxy: Yes Interim History: See ECT note. Patient completed bitemporal ECT some improvement noted post Labs reviewed CBC chemistries unremarkable blood sugar in the 90s Mental Status Exam Mental Status Exam Patient Appearance: Disheveled Level of Consciousness: Awake and Restless Patient Behavior: Hyperactive, Restless, Invasion - Personal Space, Distractible and Impulsive Mood Description: Hostile, Anxious, Labile, Elated, Apprehensive and Expansive Affect Description: Euphoric, Hostile, Labile, Angry and Apprehensive Ability to Follow Directions: Fair Speech Pattern: Slurred, Garbled and Pressured Memory Description: Episodic Impaired and Working Impaired Hallucinations: None Delusions: Grandiose Thought Process: Racing Thought Content: positive for Racing and positive for Disorganized Depressive Symptoms: Increased Irritability Abnormal Motor Activity Signs and Symptoms: Aggression, Hyperactivity and Restlessness Judgement: Poor Diagnostics Vital Signs (24Hr): Vital Signs - 24 hr 09/08/21 18:00 09/09/21 05:55 09/09/21 06:35 Temperature 98 F 97.9 F 97.2 F Pulse Rate 68 108 H 102 H Respiratory Rate 22 H 20 Blood Pressure 122/78 107/82 Pulse Oximetry 99 96 96 09/09/21 06:59 09/09/21 07:25 09/09/21 07:30 Temperature 97.9 F 98.5 F Pulse Rate 108 H 88 83 Respiratory Rate 20 12 16 Blood Pressure 122/78 144/78 H 119/78 Pulse Oximetry 96 99 97 09/09/21 07:35 09/09/21 07:40 09/09/21 07:55 Temperature Pulse Rate 84 84 81 Respiratory Rate 16 16 16 Blood Pressure 116/79 116/77 115/77 Pulse Oximetry 96 96 96 09/09/21 08:10 09/09/21 08:25 09/09/21 08:40 Temperature Pulse Rate 80 79 76 Respiratory Rate 16 17 16 Blood Pressure 114/78 114/75 108/71 Pulse Oximetry 91 L 95 94 09/09/21 08:55 09/09/21 09:10 09/09/21 09:30 Temperature 97.6 F 96.7 F L Pulse Rate 74 78 79 Respiratory Rate 17 17 18 Blood Pressure 109/71 113/81 124/77 Pulse Oximetry 96 97 96 09/09/21 14:30 Temperature 97.9 F Pulse Rate 71 Respiratory Rate Blood Pressure 107/60 Pulse Oximetry 96 BMI result Body Mass Index 28.5 Labs Results: 09/09/21 09:11 09/09/21 09:11 Labs: Laboratory Results - last 48 hr 09/09/21 09/09/21 09/09/21 09:11 09:11 09:11 WBC 4.7 L RBC 4.22 L Hgb 12.7 L Hct 38.3 L MCV 90.8 MCH 30.1 MCHC 33.2 RDW 12.9 Plt Count 260 MPV 9.5 Immature Gran % (Auto) 0.4 Neut % (Auto) 62.9 Lymph % (Auto) 18.9 L [place] % (Auto) 9.9 Eos % (Auto) 7.5 H Baso % (Auto) 0.4 Lymph # (Auto) 0.9 L [place] # (Auto) 0.5 Eos # (Auto) 0.4 Baso # (Auto) 0.0 Abs Immat Gran (auto) 0.02 Absolute Neuts (auto) 2.9 Absolute Nucleated RBC 0.000 Nucleated RBC % (auto) 0.0 ESR 17 H Sodium 142 Potassium 4.5 Chloride 109 H Carbon Dioxide 27 Anion Gap 11 L BUN 19 H Creatinine 1.80 H Estim Creat Clear Calc 66.4 Estimated GFR 41 Random Glucose 92 Calcium 9.3 Total Bilirubin 0.6 AST 26 ALT 35 Alkaline Phosphatase 50 Ammonia Total Protein 6.5 Albumin 3.9 Rheumatoid Factor 09/09/21 09/09/21 09:11 09:11 WBC RBC Hgb Hct MCV MCH MCHC RDW Plt Count MPV Immature Gran % (Auto) Neut % (Auto) Lymph % (Auto) [place] % (Auto) Eos % (Auto) Baso % (Auto) Lymph # (Auto) [place] # (Auto) Eos # (Auto) Baso # (Auto) Abs Immat Gran (auto) Absolute Neuts (auto) Absolute Nucleated RBC Nucleated RBC % (auto) ESR Sodium Potassium Chloride Carbon Dioxide Anion Gap BUN Creatinine Estim Creat Clear Calc Estimated GFR Random Glucose Calcium Total Bilirubin AST ALT Alkaline Phosphatase Ammonia 19 Total Protein Albumin Rheumatoid Factor < 15.0 Imaging Radiology Impressions: ITS Impressions Chest X-Ray 08/26/21 14:28 IMPRESSION: Low lung volume and nonspecific subtle bibasilar airspace disease, may represent hypoventilatory, atelectatic changes versus subtle infiltrate or combination thereof. No evidence of any dense airspace pneumonia. Medications Medications Current Medications Acetaminophen (Acetaminophen 325 Mg Tablet) 975 mg PO QID PRN PRN Reason: Mild Pain (Scale Score 1-4) Last Admin: 08/30/21 08:50 Dose: 975 mg Documented by: Al Hydroxide/Mg Hydroxide (Magnesium Hydrox/Alum Hydrox 30 Ml Oral.Susp) 30 ml PO Q6H PRN PRN Reason: Heartburn/Nausea Amlodipine Besylate (Amlodipine Besylate 10 Mg Tablet) 10 mg PO DAILY [facility]; Protocol Last Admin: 09/09/21 09:38 Dose: 10 mg Documented by: Aripiprazole (Aripiprazole Er 400 Mg Suser.Syr) 400 mg IM Q28D [facility] Last Admin: 08/20/21 14:09 Dose: 400 mg Documented by: Bisoprolol Fumarate (Bisoprolol Fumarate 5 Mg Tablet) 5 mg PO DAILY [facility] Last Admin: 09/09/21 09:39 Dose: 5 mg Documented by: Clonazepam (Clonazepam 1 Mg Tablet) 1 mg PO BID@0830,1330 [facility] Last Admin: 09/09/21 14:49 Dose: 1 mg Documented by: Clonazepam (Clonazepam 1 Mg Tablet) 2 mg PO BEDTIME [facility] Last Admin: 09/08/21 20:10 Dose: 2 mg Documented by: Loperamide HCl (Loperamide Hcl 2 Mg Capsule) 2 mg PO Q4H PRN PRN Reason: Diarrhea Last Admin: 08/27/21 12:31 Dose: 2 mg Documented by: Magnesium Hydroxide (Milk Of Magnesia 30 Ml Oral.Susp) 30 ml PO DAILY PRN PRN Reason: Constipation Multivitamins/Vitamin C (Multivitamin Tablet) 1 tab PO DAILY [facility] Last Admin: 09/09/21 09:38 Dose: 1 tab Documented by: Nystatin (Nystatin Oral Susp 500,000 Unit/5 Ml Oral.Susp) 400,000 unit BUCCAL QID [facility]; Protocol Last Admin: 09/09/21 16:44 Dose: 400,000 unit Documented by: Olanzapine (Olanzapine 10 Mg Tablet) 10 mg PO TID [facility] Last Admin: 09/09/21 14:49 Dose: 10 mg Documented by: Quetiapine Fumarate (Quetiapine Fumarate 50 Mg Tablet) 150 mg PO Q4H PRN PRN Reason: Psychosis Last Admin: 09/09/21 15:35 Dose: 150 mg Documented by: Allergies Allergies Allergy/AdvReac Type Severity Reaction Status Date / Time haloperidol [From Haldol] Allergy Unknown Verified 07/22/20 03:38 Assessment & Plan Assessment & Plan (1) Bipolar affective disorder, mixed, severe, with psychotic behavior: Status: Acute Code(s): F31.64 - Bipolar disorder, current episode mixed, severe, with psychotic features Assessment and Plan: 09/04/21 Unclear questionable adverse effect from succinylcholine with normal to Path potassium an EKG. Anesthesiology present discussed not using succinylcholine next treatment but to use non dipole arising agent will lower beta-audrey encourage fluids creatinine elevated was given fluids at ECT 09/05/21 Remains manic psychotic inc zyprexa 10 tid inc klonapin 1 bid 2 hs cont ect hx nms has renal insuff encourage fluids 09/06/2021 Continue bitemporal ECT monitor facial redness for allergic reaction. Consider clozapine patient has not yet stabilized encourage fluids Continue to monitor renal function 09/09/2021 Continue bitemporal ECT trying to have discussion regarding consideration of clozapine trial (2) Dyskinesia, tardive: Status: Acute Code(s): G24.01 - Drug induced subacute dyskinesia Plan See above continue ECT consider clozapine I spent minutes with the patient and/or on the patient floor today, greater than?50% of which was spent counseling/coordinating care. Reason for contiued inpatient stay Substantial Risk for: inability to function, rapid decompensation and med/psych decompensation
[2021-09-09] MEDS: clonazePAM 1 MG TABLET 2 MG PO (20:27)
[2021-09-10] MEDS: diazePAM 5 MG TABLET PO ×3 (00:05→15:59)
[2021-09-10] MEDS: Acetaminophen 325 MG TABLET 975 MG PO (00:06)
[2021-09-10] MEDS: QUEtiapine Fumarate 50 MG TABLET 150 MG PO ×2 (00:06→11:28)
[2021-09-10 08:42] VITALS: BP 97/50; PULSE 114; RESP 22; TEMP 36; O2SAT 97
[2021-09-10 09:14] LABS: Estimated Average Glucose 97 mg/dL
[2021-09-10] MEDS: Nystatin Oral Susp 500,000 UNIT/5 ML ORAL.SUSP 400000 UNIT BUCCAL ×4 (09:15→20:51)
[2021-09-10] MEDS: clonazePAM 1 MG TABLET PO ×2 (09:15→14:05)
[2021-09-10] MEDS: OLANZapine 10 MG TABLET PO ×3 (09:15→20:51)
[2021-09-10] MEDS: amLODIPine Besylate 10 MG TABLET PO (09:15)
[2021-09-10] MEDS: Bisoprolol Fumarate 5 MG TABLET PO (09:15)
[2021-09-10] MEDS: Multivitamin TABLET 1 TAB PO (09:15)
--- NOTE | 2021-09-10 14:43 | P.PNPSI_ITS ---
Subjective Subjective Date of Service: 09/10/21 Reason For Visit: joleen Subjective Notes: Conditional Voluntary Healthcare Proxy: Yes Guardianship: No Interim History: Patient remains in a manic confusional state discussed with guardian use of Clozaril risks benefits alternatives reviewed. Medication Compliance: Intermittent Side effects from medications: Yes Attending Groups: No Mental Status Exam Mental Status Exam Narrative: Patient Appearance:?Disheveled Level of Consciousness:?Awake and Restless Patient Behavior:?Hyperactive, Restless, Invasion - Personal Space, Distractible and Impulsive Mood Description:?Hostile, Anxious, Labile, Elated, Apprehensive and Expansive Affect Description:?Euphoric, Hostile, Labile, Angry and Apprehensive Ability to Follow Directions:?Fair Speech Pattern:?Slurred, Garbled and Pressured Memory Description:?Episodic Impaired and Working Impaired Hallucinations:?None Delusions:?Grandiose Thought Process:?Racing Thought Content:?positive for Racing and positive for Disorganized Depressive Symptoms:?Increased Irritability Abnormal Motor Activity Signs and Symptoms:?Aggression, Hyperactivity and Res tlessness Judgment:?Poor Diagnostics Vital Signs (24Hr): Vital Signs - 24 hr 09/09/21 20:45 09/10/21 08:42 Temperature 97.6 F 96.8 F Pulse Rate 98 114 H Respiratory Rate 20 22 H Blood Pressure 129/76 97/50 L Pulse Oximetry 96 97 BMI result Body Mass Index 28.5 Labs Results: 09/09/21 09:11 09/09/21 09:11 Labs: Laboratory Results - last 48 hr 09/09/21 09/09/21 09/09/21 09:11 09:11 09:11 WBC 4.7 L RBC 4.22 L Hgb 12.7 L Hct 38.3 L MCV 90.8 MCH 30.1 MCHC 33.2 RDW 12.9 Plt Count 260 MPV 9.5 Immature Gran % (Auto) 0.4 Neut % (Auto) 62.9 Lymph % (Auto) 18.9 L [place] % (Auto) 9.9 Eos % (Auto) 7.5 H Baso % (Auto) 0.4 Lymph # (Auto) 0.9 L [place] # (Auto) 0.5 Eos # (Auto) 0.4 Baso # (Auto) 0.0 Abs Immat Gran (auto) 0.02 Absolute Neuts (auto) 2.9 Absolute Nucleated RBC 0.000 Nucleated RBC % (auto) 0.0 ESR 17 H Sodium 142 Potassium 4.5 Chloride 109 H Carbon Dioxide 27 Anion Gap 11 L BUN 19 H Creatinine 1.80 H Estim Creat Clear Calc 66.4 Estimated GFR 41 Random Glucose 92 Estimat Average Glucose Hemoglobin A1c % Calcium 9.3 Total Bilirubin 0.6 AST 26 ALT 35 Alkaline Phosphatase 50 Ammonia Total Protein 6.5 Albumin 3.9 Rheumatoid Factor 09/09/21 09/09/21 09/10/21 09:11 09:11 08:41 WBC RBC Hgb Hct MCV MCH MCHC RDW Plt Count MPV Immature Gran % (Auto) Neut % (Auto) Lymph % (Auto) [place] % (Auto) Eos % (Auto) Baso % (Auto) Lymph # (Auto) [place] # (Auto) Eos # (Auto) Baso # (Auto) Abs Immat Gran (auto) Absolute Neuts (auto) Absolute Nucleated RBC Nucleated RBC % (auto) ESR Sodium Potassium Chloride Carbon Dioxide Anion Gap BUN Creatinine Estim Creat Clear Calc Estimated GFR Random Glucose Estimat Average Glucose 97 Hemoglobin A1c % 5.0 Calcium Total Bilirubin AST ALT Alkaline Phosphatase Ammonia 19 Total Protein Albumin Rheumatoid Factor < 15.0 Imaging Radiology Impressions: ITS Impressions Chest X-Ray 08/26/21 14:28 IMPRESSION: Low lung volume and nonspecific subtle bibasilar airspace disease, may represent hypoventilatory, atelectatic changes versus subtle infiltrate or combination thereof. No evidence of any dense airspace pneumonia. Medications Medications Current Medications Acetaminophen (Acetaminophen 325 Mg Tablet) 975 mg PO QID PRN PRN Reason: Mild Pain (Scale Score 1-4) Last Admin: 09/10/21 00:06 Dose: 975 mg Documented by: Al Hydroxide/Mg Hydroxide (Magnesium Hydrox/Alum Hydrox 30 Ml Oral.Susp) 30 ml PO Q6H PRN PRN Reason: Heartburn/Nausea Amlodipine Besylate (Amlodipine Besylate 10 Mg Tablet) 10 mg PO DAILY [facility]; Protocol Last Admin: 09/10/21 09:15 Dose: 10 mg Documented by: Aripiprazole (Aripiprazole Er 400 Mg Suser.Syr) 400 mg IM Q28D [facility] Last Admin: 08/20/21 14:09 Dose: 400 mg Documented by: Bisoprolol Fumarate (Bisoprolol Fumarate 5 Mg Tablet) 5 mg PO DAILY [facility] Last Admin: 09/10/21 09:15 Dose: 5 mg Documented by: Clonazepam (Clonazepam 1 Mg Tablet) 1 mg PO BID@0830,1330 [facility] Last Admin: 09/10/21 14:05 Dose: 1 mg Documented by: Clonazepam (Clonazepam 1 Mg Tablet) 2 mg PO BEDTIME [facility] Last Admin: 09/09/21 20:27 Dose: 2 mg Documented by: Diazepam (Diazepam 5 Mg Tablet) 5 mg PO TID PRN PRN Reason: anxiety/restlessness Last Admin: 09/10/21 11:28 Dose: 5 mg Documented by: Loperamide HCl (Loperamide Hcl 2 Mg Capsule) 2 mg PO Q4H PRN PRN Reason: Diarrhea Last Admin: 08/27/21 12:31 Dose: 2 mg Documented by: Magnesium Hydroxide (Milk Of Magnesia 30 Ml Oral.Susp) 30 ml PO DAILY PRN PRN Reason: Constipation Multivitamins/Vitamin C (Multivitamin Tablet) 1 tab PO DAILY [facility] Last Admin: 09/10/21 09:15 Dose: 1 tab Documented by: Nystatin (Nystatin Oral Susp 500,000 Unit/5 Ml Oral.Susp) 400,000 unit BUCCAL QID [facility]; Protocol Last Admin: 09/10/21 14:05 Dose: 400,000 unit Documented by: Olanzapine (Olanzapine 10 Mg Tablet) 10 mg PO TID [facility] Last Admin: 09/10/21 14:05 Dose: 10 mg Documented by: Quetiapine Fumarate (Quetiapine Fumarate 100 Mg Tablet) 100 mg PO Q4H PRN PRN Reason: Psychosis Allergies Allergies Allergy/AdvReac Type Severity Reaction Status Date / Time haloperidol [From Haldol] Allergy Unknown Verified 07/22/20 03:38 Assessment & Plan Assessment & Plan (1) Bipolar affective disorder, mixed, severe, with psychotic behavior: Status: Acute Code(s): F31.64 - Bipolar disorder, current episode mixed, severe, with psychotic features Assessment and Plan: 09/04/21 Unclear questionable adverse effect from succinylcholine with normal to Path potassium an EKG. Anesthesiology present discussed not using succinylcholine next treatment but to use non dipole arising agent will lower beta-audrey encourage fluids creatinine elevated was given fluids at ECT 09/05/21 Remains manic psychotic inc zyprexa 10 tid inc klonapin 1 bid 2 hs cont ect hx nms has renal insuff encourage fluids 09/07/[address] and course of tx 09/08/21 continue current treatment 09/10/21 Discussed with hcp use of clozaril cont ect try and taper down medication to see if any contribution to manic confiusion some dec aggression some inc linear thought (2) Dyskinesia, tardive: Status: Acute Code(s): G24.01 - Drug induced subacute dyskinesia I spent minutes with the patient and/or on the patient floor today, grea ter than?50% of which was spent counseling/coordinating care. Reason for contiued inpatient stay Substantial Risk for: harm to others and med/psych decompensation
[2021-09-10] MEDS: QUEtiapine Fumarate 100 MG TABLET PO ×2 (15:59→20:51)
[2021-09-10 17:16] LABS: Lyme Blot 1.46 index
[2021-09-10 18:00] VITALS: RESP 22
[2021-09-10] MEDS: clonazePAM 1 MG TABLET 2 MG PO (20:51)
[2021-09-11] VITALS (13 sets, daily range): BP systolic 98–166; BP diastolic 54–84; PULSE 68–98; RESP 14–22; TEMP 35.5–36.4; O2SAT 95–100
--- NOTE | 2021-09-11 07:14 | HO.ANESPROP2 ---
HPI - Anesthesia Eval Consult details Narrative: 46yo male patient for ECT PMFSH Active Problems Active Problems: All Active Problems (Updated 08/20/21 @ 17:39 by Fredy Caldera DO) Physical exam (Acute) Bipolar affective disorder, mixed, severe, with psychotic behavior (Acute) Bipolar affective, manic, full remis (Acute) Hypertension (Acute) Hyperlipidemia (Acute) Dyskinesia, tardive (Acute) Manic behavior (Acute) Rash (Acute) Past Medical History Medical History HTN (hypertension) Kidney problem Functional capacity: independent ambulation Family History Family history of problems with anesthesia: No Surgical History History of Problems with Anesthesia: No Social History Social History Household Members: Spouse Household Members Other:: Housing: House Do you presently have visiting nurse or other home services: No Unable to assess alcohol history related to: Unknown Patient Tobacco Use Status: Tobacco use Unknown Second Hand Smoke Exposure: No Use of substances other than those prescribed or required for medical reasons: Unknown Currently Displaying Signs/Symptoms of Drug Intoxication Withdrawal: No Any prior treatment program specific to substance use: No Advance Directives: No Advance Directives Information Provided: No Advance Directives on File: No Healthcare Proxy: Yes Guardian: No Do you have thoughts of harming others: None Do you have a plan to hurt others: No Plan Recently lost weight without trying: Unsure How much weight loss: Unsure service: No Sexual orientation: Straight/Heterosexual Meds Allergies Allergy/AdvReac Type Severity Reaction Status Date / Time haloperidol [From Haldol] Allergy Unknown Verified 07/22/20 03:38 Active Medications: Current Medications Acetaminophen (Acetaminophen 325 Mg Tablet) 975 mg PO QID PRN PRN Reason: Mild Pain (Scale Score 1-4) Last Admin: 09/10/21 00:06 Dose: 975 mg Documented by: Al Hydroxide/Mg Hydroxide (Magnesium Hydrox/Alum Hydrox 30 Ml Oral.Susp) 30 ml PO Q6H PRN PRN Reason: Heartburn/Nausea Amlodipine Besylate (Amlodipine Besylate 10 Mg Tablet) 10 mg PO DAILY CONRAD; Protocol Last Admin: 09/10/21 09:15 Dose: 10 mg Documented by: Aripiprazole (Aripiprazole Er 400 Mg Suser.Syr) 400 mg IM Q28D [facility] Last Admin: 08/20/21 14:09 Dose: 400 mg Documented by: Bisoprolol Fumarate (Bisoprolol Fumarate 5 Mg Tablet) 5 mg PO DAILY [facility] Last Admin: 09/10/21 09:15 Dose: 5 mg Documented by: Clonazepam (Clonazepam 1 Mg Tablet) 1 mg PO BID@0830,1330 [facility] Last Admin: 09/10/21 14:05 Dose: 1 mg Documented by: Clonazepam (Clonazepam 1 Mg Tablet) 2 mg PO BEDTIME [facility] Last Admin: 09/10/21 20:51 Dose: 2 mg Documented by: Loperamide HCl (Loperamide Hcl 2 Mg Capsule) 2 mg PO Q4H PRN PRN Reason: Diarrhea Last Admin: 08/27/21 12:31 Dose: 2 mg Documented by: Magnesium Hydroxide (Milk Of Magnesia 30 Ml Oral.Susp) 30 ml PO DAILY PRN PRN Reason: Constipation Multivitamins/Vitamin C (Multivitamin Tablet) 1 tab PO DAILY [facility] Last Admin: 09/10/21 09:15 Dose: 1 tab Documented by: Nystatin (Nystatin Oral Susp 500,000 Unit/5 Ml Oral.Susp) 400,000 unit BUCCAL QID [facility]; Protocol Last Admin: 09/10/21 20:51 Dose: 400,000 unit Documented by: Olanzapine (Olanzapine 10 Mg Tablet) 10 mg PO BID [facility] Quetiapine Fumarate (Quetiapine Fumarate 100 Mg Tablet) 100 mg PO Q4H PRN PRN Reason: Psychosis Last Admin: 09/10/21 20:51 Dose: 100 mg Documented by: Home Medications Medication Instructions Recorded Confirmed Last Taken Type acetaminophen 500 mg tablet 1,000 mg PO QID PRN 08/16/21 08/16/21 Unknown History (Tylenol Extra Strength) amlodipine 10 mg tablet 1 tab PO DAILY 08/16/21 08/16/21 Unknown History aripiprazole 400 mg intramuscular 400 mg IM QMONTH 08/16/21 08/16/21 Unknown History suspension,extended release (Abilify Maintena) bisoprolol 10 1 tab PO DAILY 08/16/21 08/16/21 Unknown History mg-hydrochlorothiazide 6.25 mg tablet multivitamin 1 tab PO DAILY 08/16/21 08/16/21 Unknown History vitamin B complex 1 tab PO DAILY 08/16/21 08/16/21 Unknown History Exam Exam Date and Time: September 11, 2021 0714 Height,Weight and Vital Signs: Height 6 ft 2 in Weight 101 kg Last Vital Signs Temp 96 F L 09/11/21 06:39 Pulse 76 09/11/21 06:39 Resp 18 09/11/21 06:39 BP 116/74 09/11/21 06:39 Pulse Ox 96 09/11/21 06:39 Pertinent Lab Results Pertinent Lab Results: Laboratory Tests 08/16/21 08/16/21 08/16/21 16:05 16:42 16:42 WBC RBC Hgb Hct MCV MCH MCHC RDW Plt Count MPV Immature Gran % (Auto) Neut % (Auto) Lymph % (Auto) [place] % (Auto) Eos % (Auto) Baso % (Auto) Lymph # (Auto) [place] # (Auto) Eos # (Auto) Baso # (Auto) Abs Immat Gran (auto) Absolute Neuts (auto) Absolute Nucleated RBC Nucleated RBC % (auto) ESR Sodium Potassium Chloride Carbon Dioxide Anion Gap BUN Creatinine Estim Creat Clear Calc Estimated GFR Random Glucose Fasting Glucose Estimat Average Glucose Hemoglobin A1c % Calcium Magnesium Iron TIBC % Saturation Unsat Iron Binding Total Bilirubin Direct Bilirubin AST ALT Alkaline Phosphatase Ammonia Lactate Dehydrogenase Total Creatine Kinase Total Protein Albumin Triglycerides Cholesterol LDL Cholesterol, Calc HDL Cholesterol Vitamin B12 Folate TSH Urine Color YELLOW Urine Appearance CLEAR Urine pH 6.0 Ur Specific [place] 1.010 Urine Protein 2+ H Urine Glucose (UA) NEG Urine Ketones NEG Urine Blood 2+ H Urine Nitrite NEG Ur Leukocyte Esterase NEG Urine RBC 5-9 H Urine WBC 0 Ur Squamous Epith Cells NONE Urine Bacteria NONE Urine Opiates Screen Not Detected Urine Fentanyl Screen Not Detected Ur Barbiturates Screen Not Detected Valproic Acid Ur Phencyclidine Scrn Not Detected Ur Amphetamines Screen Not Detected U Benzodiazepines Scrn Not Detected Urine Cocaine Screen Not Detected U Marijuana (THC) Screen Not Detected Ethyl Alcohol Rheumatoid Factor Lyme Progressive Test COVID-19 (URI) Negative COVID-19 Clin Com See Note Influenza Type A (PCR) Influenza Type B (PCR) RSV RNA Qual (PCR) SARS-CoV-2 RNA (RT-PCR) 08/16/21 08/16/21 08/16/21 16:51 16:51 16:51 WBC 7.8 RBC 4.83 Hgb 14.8 Hct 42.1 MCV 87.2 MCH 30.6 MCHC 35.2 RDW 12.7 Plt Count 226 MPV 9.3 L Immature Gran % (Auto) 0.4 Neut % (Auto) 72.1 Lymph % (Auto) 15.1 L [place] % (Auto) 8.5 Eos % (Auto) 3.5 Baso % (Auto) 0.4 Lymph # (Auto) 1.2 [place] # (Auto) 0.7 Eos # (Auto) 0.3 Baso # (Auto) 0.0 Abs Immat Gran (auto) 0.03 Absolute Neuts (auto) 5.6 Absolute Nucleated RBC 0.000 Nucleated RBC % (auto) 0.0 ESR Sodium 138 Potassium 3.9 Chloride 102 Carbon Dioxide 24 Anion Gap 16 BUN 16 Creatinine 1.49 H Estim Creat Clear Calc 80.2 Estimated GFR 51 Random Glucose 117 H Fasting Glucose Estimat Average Glucose Hemoglobin A1c % Calcium 10.1 D Magnesium Iron TIBC % Saturation Unsat Iron Binding Total Bilirubin 0.7 Direct Bilirubin AST 47 H D ALT 63 H Alkaline Phosphatase 56 Ammonia Lactate Dehydrogenase Total Creatine Kinase Total Protein 8.2 H D Albumin 4.9 D Triglycerides Cholesterol LDL Cholesterol, Calc HDL Cholesterol Vitamin B12 Folate TSH Urine Color Urine Appearance Urine pH Ur Specific [place] Urine Protein Urine Glucose (UA) Urine Ketones Urine Blood Urine Nitrite Ur Leukocyte Esterase Urine RBC Urine WBC Ur Squamous Epith Cells Urine Bacteria Urine Opiates Screen Urine Fentanyl Screen Ur Barbiturates Screen Valproic Acid Ur Phencyclidine Scrn Ur Amphetamines Screen U Benzodiazepines Scrn Urine Cocaine Screen U Marijuana (THC) Screen Ethyl Alcohol < 10 Rheumatoid Factor Lyme Progressive Test COVID-19 (URI) COVID-19 Clin Com Influenza Type A (PCR) Influenza Type B (PCR) RSV RNA Qual (PCR) SARS-CoV-2 RNA (RT-PCR) 08/17/21 08/17/21 08/17/21 06:42 06:42 06:42 WBC RBC Hgb Hct MCV MCH MCHC RDW Plt Count MPV Immature Gran % (Auto) Neut % (Auto) Lymph % (Auto) [place] % (Auto) Eos % (Auto) Baso % (Auto) Lymph # (Auto) [place] # (Auto) Eos # (Auto) Baso # (Auto) Abs Immat Gran (auto) Absolute Neuts (auto) Absolute Nucleated RBC Nucleated RBC % (auto) ESR Sodium 138 Potassium 3.9 Chloride 102 Carbon Dioxide 24 Anion Gap 16 BUN 12 Creatinine 1.47 H Estim Creat Clear Calc 81.3 Estimated GFR 52 Random Glucose Fasting Glucose 112 H Estimat Average Glucose 97 Hemoglobin A1c % 5.0 Calcium 10.2 Magnesium Iron TIBC % Saturation Unsat Iron Binding Total Bilirubin 1.2 H Direct Bilirubin AST 48 H ALT 65 H Alkaline Phosphatase 56 Ammonia Lactate Dehydrogenase Total Creatine Kinase Total Protein 8.5 H Albumin 4.9 Triglycerides 133 Cholesterol 226 D LDL Cholesterol, Calc 152 HDL Cholesterol 48 D Vitamin B12 558 Folate > 20.0 TSH 1.87 Urine Color Urine Appearance Urine pH Ur Specific [place] Urine Protein Urine Glucose (UA) Urine Ketones Urine Blood Urine Nitrite Ur Leukocyte Esterase Urine RBC Urine WBC Ur Squamous Epith Cells Urine Bacteria Urine Opiates Screen Urine Fentanyl Screen Ur Barbiturates Screen Valproic Acid Ur Phencyclidine Scrn Ur Amphetamines Screen U Benzodiazepines Scrn Urine Cocaine Screen U Marijuana (THC) Screen Ethyl Alcohol Rheumatoid Factor Lyme Progressive Test COVID-19 (URI) COVID-19 Clin Com Influenza Type A (PCR) Influenza Type B (PCR) RSV RNA Qual (PCR) SARS-CoV-2 RNA (RT-PCR) 08/24/21 08/24/21 08/25/21 07:19 07:19 17:19 WBC 5.9 RBC 4.04 L Hgb 12.2 L Hct 35.1 L MCV 86.9 MCH 30.2 MCHC 34.8 RDW 12.6 Plt Count 189 MPV 9.2 L Immature Gran % (Auto) 0.3 Neut % (Auto) 68.7 Lymph % (Auto) 16.5 L [place] % (Auto) 10.8 Eos % (Auto) 3.5 Baso % (Auto) 0.2 Lymph # (Auto) 1.0 L [place] # (Auto) 0.6 Eos # (Auto) 0.2 Baso # (Auto) 0.0 Abs Immat Gran (auto) 0.02 Absolute Neuts (auto) 4.1 Absolute Nucleated RBC 0.000 Nucleated RBC % (auto) 0.0 ESR Sodium 141 141 Potassium 3.1 L D 3.0 L Chloride 105 102 Carbon Dioxide 24 27 Anion Gap 15 15 BUN 17 H 13 Creatinine 1.68 H 1.45 H Estim Creat Clear Calc 71.2 82.5 Estimated GFR 45 53 Random Glucose Fasting Glucose 90 Estimat Average Glucose Hemoglobin A1c % Calcium 9.1 D Magnesium Iron TIBC % Saturation Unsat Iron Binding Total Bilirubin 0.7 0.5 Direct Bilirubin 0.2 AST 120 H 119 H ALT 47 H 56 H Alkaline Phosphatase 45 43 Ammonia Lactate Dehydrogenase 472 H Total Creatine Kinase 6578 H Total Protein 6.2 L D 5.8 L Albumin 3.8 D 3.5 Triglycerides Cholesterol LDL Cholesterol, Calc HDL Cholesterol Vitamin B12 Folate TSH Urine Color Urine Appearance Urine pH Ur Specific [place] Urine Protein Urine Glucose (UA) Urine Ketones Urine Blood Urine Nitrite Ur Leukocyte Esterase Urine RBC Urine WBC Ur Squamous Epith Cells Urine Bacteria Urine Opiates Screen Urine Fentanyl Screen Ur Barbiturates Screen Valproic Acid 103.1 H Ur Phencyclidine Scrn Ur Amphetamines Screen U Benzodiazepines Scrn Urine Cocaine Screen U Marijuana (THC) Screen Ethyl Alcohol Rheumatoid Factor Lyme Progressive Test COVID-19 (URI) COVID-19 Clin Com Influenza Type A (PCR) Influenza Type B (PCR) RSV RNA Qual (PCR) SARS-CoV-2 RNA (RT-PCR) 08/25/21 08/26/21 08/26/21 17:19 07:53 07:53 WBC 5.6 RBC 3.90 L Hgb 11.9 L Hct 34.4 L MCV 88.2 MCH 30.5 MCHC 34.6 RDW 12.9 Plt Count 183 MPV 9.1 L Immature Gran % (Auto) 0.5 H Neut % (Auto) 62.7 Lymph % (Auto) 18.9 L [place] % (Auto) 10.9 Eos % (Auto) 6.6 H Baso % (Auto) 0.4 Lymph # (Auto) 1.1 L [place] # (Auto) 0.6 Eos # (Auto) 0.4 Baso # (Auto) 0.0 Abs Immat Gran (auto) 0.03 Absolute Neuts (auto) 3.5 Absolute Nucleated RBC 0.000 Nucleated RBC % (auto) 0.0 ESR Sodium 144 Cancelled Potassium 3.9 D Cancelled Chloride 105 Cancelled Carbon Dioxide 26 Cancelled Anion Gap 17 Cancelled BUN 11 Creatinine 1.26 Estim Creat Clear Calc 94.9 Estimated GFR > 60 Random Glucose 93 Fasting Glucose Estimat Average Glucose Hemoglobin A1c % Calcium 9.1 Magnesium Cancelled Iron TIBC % Saturation Unsat Iron Binding Total Bilirubin Direct Bilirubin AST ALT Alkaline Phosphatase Ammonia Lactate Dehydrogenase Total Creatine Kinase 5470 H Total Protein Albumin Triglycerides Cholesterol LDL Cholesterol, Calc HDL Cholesterol Vitamin B12 Folate TSH Urine Color Urine Appearance Urine pH Ur Specific [place] Urine Protein Urine Glucose (UA) Urine Ketones Urine Blood Urine Nitrite Ur Leukocyte Esterase Urine RBC Urine WBC Ur Squamous Epith Cells Urine Bacteria Urine Opiates Screen Urine Fentanyl Screen Ur Barbiturates Screen Valproic Acid Ur Phencyclidine Scrn Ur Amphetamines Screen U Benzodiazepines Scrn Urine Cocaine Screen U Marijuana (THC) Screen Ethyl Alcohol Rheumatoid Factor Lyme Progressive Test COVID-19 (URI) COVID-19 Clin Com Influenza Type A (PCR) Influenza Type B (PCR) RSV RNA Qual (PCR) SARS-CoV-2 RNA (RT-PCR) 08/26/21 08/26/21 08/27/21 07:53 14:30 08:19 WBC 7.0 5.0 3.8 L RBC 4.35 L 4.17 L 4.41 L Hgb 13.5 L 12.5 L 13.5 L Hct 38.5 L 37.1 L 40.3 L MCV 88.5 89.0 91.4 MCH 31.0 30.0 30.6 MCHC 35.1 33.7 33.5 RDW 12.9 12.8 13.2 Plt Count 200 191 178 MPV 9.4 9.5 9.8 Immature Gran % (Auto) 0.4 1.1 H Neut % (Auto) 86.8 H 74.0 H Lymph % (Auto) 3.9 L 11.9 L [place] % (Auto) 5.6 11.4 H Eos % (Auto) 3.2 1.1 Baso % (Auto) 0.1 0.5 Lymph # (Auto) 0.3 L 0.5 L [place] # (Auto) 0.4 0.4 Eos # (Auto) 0.2 0.0 Baso # (Auto) 0.0 0.0 Abs Immat Gran (auto) 0.03 0.04 H Absolute Neuts (auto) 6.0 2.8 Absolute Nucleated RBC 0.000 0.000 0.000 Nucleated RBC % (auto) 0.0 0.0 0.0 ESR Sodium Potassium Chloride Carbon Dioxide Anion Gap BUN Creatinine Estim Creat Clear Calc Estimated GFR Random Glucose Fasting Glucose Estimat Average Glucose Hemoglobin A1c % Calcium Magnesium Iron TIBC % Saturation Unsat Iron Binding Total Bilirubin Direct Bilirubin AST ALT Alkaline Phosphatase Ammonia Lactate Dehydrogenase Total Creatine Kinase Total Protein Albumin Triglycerides Cholesterol LDL Cholesterol, Calc HDL Cholesterol Vitamin B12 Folate TSH Urine Color Urine Appearance Urine pH Ur Specific [place] Urine Protein Urine Glucose (UA) Urine Ketones Urine Blood Urine Nitrite Ur Leukocyte Esterase Urine RBC Urine WBC Ur Squamous Epith Cells Urine Bacteria Urine Opiates Screen Urine Fentanyl Screen Ur Barbiturates Screen Valproic Acid Ur Phencyclidine Scrn Ur Amphetamines Screen U Benzodiazepines Scrn Urine Cocaine Screen U Marijuana (THC) Screen Ethyl Alcohol Rheumatoid Factor Lyme Progressive Test COVID-19 (URI) COVID-19 Clin Com Influenza Type A (PCR) Influenza Type B (PCR) RSV RNA Qual (PCR) SARS-CoV-2 RNA (RT-PCR) 08/27/21 08/27/21 08/27/21 08:19 08:19 13:58 WBC RBC Hgb Hct MCV MCH MCHC RDW Plt Count MPV Immature Gran % (Auto) Neut % (Auto) Lymph % (Auto) [place] % (Auto) Eos % (Auto) Baso % (Auto) Lymph # (Auto) [place] # (Auto) Eos # (Auto) Baso # (Auto) Abs Immat Gran (auto) Absolute Neuts (auto) Absolute Nucleated RBC Nucleated RBC % (auto) ESR Sodium 144 Potassium 3.8 Chloride 107 Carbon Dioxide 24 Anion Gap 17 BUN 21 H D Creatinine 1.54 H Estim Creat Clear Calc 77.6 Estimated GFR 49 Random Glucose Fasting Glucose 75 Estimat Average Glucose Hemoglobin A1c % Calcium 8.8 Magnesium Iron 24 L TIBC 245 % Saturation 10 L Unsat Iron Binding 221 Total Bilirubin 0.6 Direct Bilirubin AST 102 H ALT 73 H Alkaline Phosphatase 47 Ammonia 45 Lactate Dehydrogenase Total Creatine Kinase 3624 H Total Protein 6.0 L Albumin 3.5 Triglycerides Cholesterol LDL Cholesterol, Calc HDL Cholesterol Vitamin B12 Folate TSH Urine Color Urine Appearance Urine pH Ur Specific [place] Urine Protein Urine Glucose (UA) Urine Ketones Urine Blood Urine Nitrite Ur Leukocyte Esterase Urine RBC Urine WBC Ur Squamous Epith Cells Urine Bacteria Urine Opiates Screen Urine Fentanyl Screen Ur Barbiturates Screen Valproic Acid Ur Phencyclidine Scrn Ur Amphetamines Screen U Benzodiazepines Scrn Urine Cocaine Screen U Marijuana (THC) Screen Ethyl Alcohol Rheumatoid Factor Lyme Progressive Test COVID-19 (URI) COVID-19 Clin Com Influenza Type A (PCR) NEGATIVE Influenza Type B (PCR) NEGATIVE RSV RNA Qual (PCR) NEGATIVE SARS-CoV-2 RNA (RT-PCR) NEGATIVE 08/28/21 08/29/21 08/29/21 08:59 07:10 07:10 WBC 7.0 RBC 4.18 L Hgb 12.6 L Hct 37.2 L MCV 89.0 MCH 30.1 MCHC 33.9 RDW 13.2 Plt Count 204 MPV 8.9 L Immature Gran % (Auto) 1.0 H Neut % (Auto) 62.8 Lymph % (Auto) 16.3 L [place] % (Auto) 12.9 H Eos % (Auto) 6.7 H Baso % (Auto) 0.3 Lymph # (Auto) 1.1 L [place] # (Auto) 0.9 Eos # (Auto) 0.5 H Baso # (Auto) 0.0 Abs Immat Gran (auto) 0.07 H Absolute Neuts (auto) 4.4 Absolute Nucleated RBC 0.000 Nucleated RBC % (auto) 0.0 ESR Sodium 144 Potassium 3.4 Chloride 107 Carbon Dioxide 29 Anion Gap 11 L BUN 13 Creatinine 1.29 Estim Creat Clear Calc 92.7 Estimated GFR > 60 Random Glucose 107 Fasting Glucose Estimat Average Glucose 94 Hemoglobin A1c % 4.9 Calcium 8.5 Magnesium 1.8 Iron TIBC % Saturation Unsat Iron Binding Total Bilirubin 0.6 Direct Bilirubin AST 69 H ALT 66 H Alkaline Phosphatase 44 Ammonia Lactate Dehydrogenase Total Creatine Kinase 2202 H D Total Protein 5.8 L Albumin 3.3 L Triglycerides Cholesterol LDL Cholesterol, Calc HDL Cholesterol Vitamin B12 Folate TSH Urine Color Urine Appearance Urine pH Ur Specific [place] Urine Protein Urine Glucose (UA) Urine Ketones Urine Blood Urine Nitrite Ur Leukocyte Esterase Urine RBC Urine WBC Ur Squamous Epith Cells Urine Bacteria Urine Opiates Screen Urine Fentanyl Screen Ur Barbiturates Screen Valproic Acid Ur Phencyclidine Scrn Ur Amphetamines Screen U Benzodiazepines Scrn Urine Cocaine Screen U Marijuana (THC) Screen Ethyl Alcohol Rheumatoid Factor Lyme Progressive Test COVID-19 (URI) COVID-19 Clin Com Influenza Type A (PCR) Influenza Type B (PCR) RSV RNA Qual (PCR) SARS-CoV-2 RNA (RT-PCR) 09/04/21 09/04/21 09/04/21 07:34 07:34 07:34 WBC 5.6 RBC 4.47 L Hgb 13.3 L Hct 40.5 L MCV 90.6 MCH 29.8 MCHC 32.8 RDW 12.8 Plt Count 210 MPV 9.0 L Immature Gran % (Auto) 1.8 H Neut % (Auto) 52.7 Lymph % (Auto) 27.5 [place] % (Auto) 12.6 H Eos % (Auto) 5.0 H Baso % (Auto) 0.4 Lymph # (Auto) 1.5 [place] # (Auto) 0.7 Eos # (Auto) 0.3 Baso # (Auto) 0.0 Abs Immat Gran (auto) 0.10 H Absolute Neuts (auto) 2.9 Absolute Nucleated RBC 0.000 Nucleated RBC % (auto) 0.0 ESR Sodium 145 145 Potassium 4.6 D 4.6 Chloride 110 H 111 H Carbon Dioxide 24 23 Anion Gap 16 16 BUN 24 H D 24 H Creatinine 1.99 H 2.00 H Estim Creat Clear Calc 60.1 59.8 Estimated GFR 37 36 Random Glucose 109 Fasting Glucose 108 H D Estimat Average Glucose Hemoglobin A1c % Calcium 9.6 D 9.5 Magnesium Iron TIBC % Saturation Unsat Iron Binding Total Bilirubin 0.5 Direct Bilirubin AST 27 D ALT 45 H Alkaline Phosphatase 46 Ammonia Lactate Dehydrogenase Total Creatine Kinase 248 H D 245 H Total Protein 6.6 Albumin 3.8 Triglycerides Cholesterol LDL Cholesterol, Calc HDL Cholesterol Vitamin B12 Folate TSH Urine Color Urine Appearance Urine pH Ur Specific [place] Urine Protein Urine Glucose (UA) Urine Ketones Urine Blood Urine Nitrite Ur Leukocyte Esterase Urine RBC Urine WBC Ur Squamous Epith Cells Urine Bacteria Urine Opiates Screen Urine Fentanyl Screen Ur Barbiturates Screen Valproic Acid Ur Phencyclidine Scrn Ur Amphetamines Screen U Benzodiazepines Scrn Urine Cocaine Screen U Marijuana (THC) Screen Ethyl Alcohol Rheumatoid Factor Lyme Progressive Test COVID-19 (UIR) COVID-19 Clin Com Influenza Type A (PCR) Influenza Type B (PCR) RSV RNA Qual (PCR) SARS-CoV-2 RNA (RT-PCR) 09/04/21 09/06/21 09/06/21 10:30 08:33 08:33 WBC RBC Hgb Hct MCV MCH MCHC RDW Plt Count MPV Immature Gran % (Auto) Neut % (Auto) Lymph % (Auto) [place] % (Auto) Eos % (Auto) Baso % (Auto) Lymph # (Auto) [place] # (Auto) Eos # (Auto) Baso # (Auto) Abs Immat Gran (auto) Absolute Neuts (auto) Absolute Nucleated RBC Nucleated RBC % (auto) ESR Sodium 146 H 143 Potassium 4.6 4.6 Chloride 110 H 110 H Carbon Dioxide 26 23 Anion Gap 15 15 BUN 22 H 22 H Creatinine 1.86 H 1.77 H Estim Creat Clear Calc 64.3 67.5 Estimated GFR 40 42 Random Glucose 89 92 Fasting Glucose Estimat Average Glucose Hemoglobin A1c % Calcium 9.5 9.7 Magnesium Iron TIBC % Saturation Unsat Iron Binding Total Bilirubin Direct Bilirubin AST ALT Alkaline Phosphatase Ammonia Lactate Dehydrogenase Total Creatine Kinase Total Protein Albumin Triglycerides Cholesterol LDL Cholesterol, Calc HDL Cholesterol Vitamin B12 Folate TSH Cancelled 0.70 Urine Color Urine Appearance Urine pH Ur Specific [place] Urine Protein Urine Glucose (UA) Urine Ketones Urine Blood Urine Nitrite Ur Leukocyte Esterase Urine RBC Urine WBC Ur Squamous Epith Cells Urine Bacteria Urine Opiates Screen Urine Fentanyl Screen Ur Barbiturates Screen Valproic Acid Ur Phencyclidine Scrn Ur Amphetamines Screen U Benzodiazepines Scrn Urine Cocaine Screen U Marijuana (THC) Screen Ethyl Alcohol Rheumatoid Factor Lyme Progressive Test COVID-19 (URI) COVID-19 Clin Com Influenza Type A (PCR) Influenza Type B (PCR) RSV RNA Qual (PCR) SARS-CoV-2 RNA (RT-PCR) 09/09/21 09/09/21 09/09/21 09:11 09:11 09:11 WBC 4.7 L RBC 4.22 L Hgb 12.7 L Hct 38.3 L MCV 90.8 MCH 30.1 MCHC 33.2 RDW 12.9 Plt Count 260 MPV 9.5 Immature Gran % (Auto) 0.4 Neut % (Auto) 62.9 Lymph % (Auto) 18.9 L [place] % (Auto) 9.9 Eos % (Auto) 7.5 H Baso % (Auto) 0.4 Lymph # (Auto) 0.9 L [place] # (Auto) 0.5 Eos # (Auto) 0.4 Baso # (Auto) 0.0 Abs Immat Gran (auto) 0.02 Absolute Neuts (auto) 2.9 Absolute Nucleated RBC 0.000 Nucleated RBC % (auto) 0.0 ESR 17 H Sodium 142 Potassium 4.5 Chloride 109 H Carbon Dioxide 27 Anion Gap 11 L BUN 19 H Creatinine 1.80 H Estim Creat Clear Calc 66.4 Estimated GFR 41 Random Glucose 92 Fasting Glucose Estimat Average Glucose Hemoglobin A1c % Calcium 9.3 Magnesium Iron TIBC % Saturation Unsat Iron Binding Total Bilirubin 0.6 Direct Bilirubin AST 26 ALT 35 Alkaline Phosphatase 50 Ammonia Lactate Dehydrogenase Total Creatine Kinase Total Protein 6.5 Albumin 3.9 Triglycerides Cholesterol LDL Cholesterol, Calc HDL Cholesterol Vitamin B12 Folate TSH Urine Color Urine Appearance Urine pH Ur Specific [place] Urine Protein Urine Glucose (UA) Urine Ketones Urine Blood Urine Nitrite Ur Leukocyte Esterase Urine RBC Urine WBC Ur Squamous Epith Cells Urine Bacteria Urine Opiates Screen Urine Fentanyl Screen Ur Barbiturates Screen Valproic Acid Ur Phencyclidine Scrn Ur Amphetamines Screen U Benzodiazepines Scrn Urine Cocaine Screen U Marijuana (THC) Screen Ethyl Alcohol Rheumatoid Factor Lyme Progressive Test COVID-19 (URI) COVID-19 Clin Com Influenza Type A (PCR) Influenza Type B (PCR) RSV RNA Qual (PCR) SARS-CoV-2 RNA (RT-PCR) 09/09/21 09/09/21 09/09/21 09:11 09:11 09:11 WBC RBC Hgb Hct MCV MCH MCHC RDW Plt Count MPV Immature Gran % (Auto) Neut % (Auto) Lymph % (Auto) [place] % (Auto) Eos % (Auto) Baso % (Auto) Lymph # (Auto) [place] # (Auto) Eos # (Auto) Baso # (Auto) Abs Immat Gran (auto) Absolute Neuts (auto) Absolute Nucleated RBC Nucleated RBC % (auto) ESR Sodium Potassium Chloride Carbon Dioxide Anion Gap BUN Creatinine Estim Creat Clear Calc Estimated GFR Random Glucose Fasting Glucose Estimat Average Glucose Hemoglobin A1c % Calcium Magnesium Iron TIBC % Saturation Unsat Iron Binding Total Bilirubin Direct Bilirubin AST ALT Alkaline Phosphatase Ammonia 19 Lactate Dehydrogenase Total Creatine Kinase Total Protein Albumin Triglycerides Cholesterol LDL Cholesterol, Calc HDL Cholesterol Vitamin B12 Folate TSH Urine Color Urine Appearance Urine pH Ur Specific [place] Urine Protein Urine Glucose (UA) Urine Ketones Urine Blood Urine Nitrite Ur Leukocyte Esterase Urine RBC Urine WBC Ur Squamous Epith Cells Urine Bacteria Urine Opiates Screen Urine Fentanyl Screen Ur Barbiturates Screen Valproic Acid Ur Phencyclidine Scrn Ur Amphetamines Screen U Benzodiazepines Scrn Urine Cocaine Screen U Marijuana (THC) Screen Ethyl Alcohol Rheumatoid Factor < 15.0 Lyme Progressive Test 1.46 H COVID-19 (URI) COVID-19 Clin Com Influenza Type A (PCR) Influenza Type B (PCR) RSV RNA Qual (PCR) SARS-CoV-2 RNA (RT-PCR) 09/10/21 08:41 WBC RBC Hgb Hct MCV MCH MCHC RDW Plt Count MPV Immature Gran % (Auto) Neut % (Auto) Lymph % (Auto) [place] % (Auto) Eos % (Auto) Baso % (Auto) Lymph # (Auto) [place] # (Auto) Eos # (Auto) Baso # (Auto) Abs Immat Gran (auto) Absolute Neuts (auto) Absolute Nucleated RBC Nucleated RBC % (auto) ESR Sodium Potassium Chloride Carbon Dioxide Anion Gap BUN Creatinine Estim Creat Clear Calc Estimated GFR Random Glucose Fasting Glucose Estimat Average Glucose 97 Hemoglobin A1c % 5.0 Calcium Magnesium Iron TIBC % Saturation Unsat Iron Binding Total Bilirubin Direct Bilirubin AST ALT Alkaline Phosphatase Ammonia Lactate Dehydrogenase Total Creatine Kinase Total Protein Albumin Triglycerides Cholesterol LDL Cholesterol, Calc HDL Cholesterol Vitamin B12 Folate TSH Urine Color Urine Appearance Urine pH Ur Specific [place] Urine Protein Urine Glucose (UA) Urine Ketones Urine Blood Urine Nitrite Ur Leukocyte Esterase Urine RBC Urine WBC Ur Squamous Epith Cells Urine Bacteria Urine Opiates Screen Urine Fentanyl Screen Ur Barbiturates Screen Valproic Acid Ur Phencyclidine Scrn Ur Amphetamines Screen U Benzodiazepines Scrn Urine Cocaine Screen U Marijuana (THC) Screen Ethyl Alcohol Rheumatoid Factor Lyme Progressive Test COVID-19 (URI) COVID-19 Clin Com Influenza Type A (PCR) Influenza Type B (PCR) RSV RNA Qual (PCR) SARS-CoV-2 RNA (RT-PCR) Airway Mallampati Class: III TM Dist: >3cm Neck ROM: Full Loose/Missing/Broken Teeth: No Heart: RRR Lungs: CTAB Assessment and Plan Assessment Anesthesia Assessment: Anesthesia Plan Discussed and Chart Reviewed Final Anesthetic Review Family History of Problems with Anesthesia: No History of Problems with Anesthesia: No NPO: Yes ASA Class: II Final Preanesthetic Review: No Changes in Pt Med Stat, Meds/Allgs Chart Reviewed, Consent Obtained/Reviewed and Anes Risks/Benef Reviewed Patient Risk: Intermediate Procedure Risk: Intermediate Assessment/Block/Sedation in SS: Assess/Block/Sedation-SS Anesthetic Plan Anesthetic Plan: GA Disposition: Standard PACU and Inp. Admit - Standard Bed
--- NOTE | 2021-09-11 07:32 | MHC.SHP ---
Pre-Procedural Eval Section A Date of Service: 09/11/21 The patient is an INPATIENT: Yes Changes since office visit: Yes Changes in Medication; No Cold of Flu in the past 2 weeks, No New Medical Problems and No Patient answered all questions The History & Physical has been completed within 30 days and I have reviewed it.: Yes Section B Chief Complaint: joleen Allergies: Allergies Allergy/AdvReac Type Severity Reaction Status Date / Time haloperidol [From Haldol] Allergy Unknown Verified 07/22/20 03:38 Plan I have reviewed the history and physical and performed a pertinent physical examination on my patient. No changes have occurred unless specified.
--- NOTE | 2021-09-11 07:32 | HO.ECTPROC ---
ECT Procedure Note Diagnosis/Treatment Date of Service: 09/11/21 Diagnosis: Bipolar disorder Previous ECT Date: 09/09/21 Current Treatment Number: 9 Treatment: Series Interval Clinical Notes: shows improvement more linear in thought less aggression ECT Settings Device: THYMATRON DGx Electrode Placement: Bitemporal Program/Pulse Width: 0.50 Energy Percent: 100 Seizure Duration By EEG (in seconds): 36 Medications Administration General Anesthetic: Etomidate (14) Muscle Relaxant: Rocuronium (50 plus reversal) Ancillary Medications Anti-emetics: Zofran - Pre ECT Miscillaneous Medications: Flumazenil (500) Airway Management Airway Management: Bag Mask Ventilation Treatment Recommendations No Changes Recommended: No change Notes: improvement noted Pt Tolerated Procedure w/o Issue: Yes
[2021-09-11] MEDS: Nystatin Oral Susp 500,000 UNIT/5 ML ORAL.SUSP 400000 UNIT BUCCAL ×3 (11:03→22:05)
[2021-09-11] MEDS: Multivitamin TABLET 1 TAB PO (11:04)
[2021-09-11] MEDS: amLODIPine Besylate 10 MG TABLET PO (11:04)
[2021-09-11] MEDS: clonazePAM 1 MG TABLET PO ×2 (11:04→13:50)
[2021-09-11] MEDS: OLANZapine 10 MG TABLET PO ×2 (11:04→22:06)
[2021-09-11] MEDS: Bisoprolol Fumarate 5 MG TABLET PO (11:04)
[2021-09-11 14:11] LABS: Anti Nuclear Antibody Screen NEGATIVE (NEGATIVE)
[2021-09-11] MEDS: QUEtiapine Fumarate 100 MG TABLET PO (14:30)
[2021-09-11] MEDS: clonazePAM 1 MG TABLET 2 MG PO (22:06)
--- NOTE | 2021-09-11 22:27 | HO.PSYCHPN ---
Subjective Subjective Date of Service: 09/11/21 Reason For Visit: joleen Subjective Notes: Conditional Voluntary Healthcare Proxy: Yes Interim History: See ECT note for full information patient transiently became clear more organized post ECT later again became more slurred disorganized hyperverbal distracted physically intrusive. I was able to redirect him however he would put his hands on others and needed frequent redirection. He reportedly had made transient statements of harm to himself or others when seen he was not aggressive or suicidal did try to have a conversation with him regarding clozapine Medication Compliance: Yes Review of Systems Chronic kidney issues Diagnostics Vital Signs (24Hr): Vital Signs - 24 hr 09/11/21 06:09 09/11/21 06:39 09/11/21 07:30 Temperature 97.4 F 96 F L 97.6 F Pulse Rate 68 76 89 Respiratory Rate 16 18 22 H Blood Pressure 98/54 L 116/74 166/84 H Pulse Oximetry 96 96 99 09/11/21 07:35 09/11/21 07:40 09/11/21 07:45 Temperature Pulse Rate 73 75 76 Respiratory Rate 16 14 18 Blood Pressure 117/74 117/74 120/74 Pulse Oximetry 100 98 98 09/11/21 08:00 09/11/21 08:15 09/11/21 08:30 Temperature Pulse Rate 77 79 77 Respiratory Rate 16 16 16 Blood Pressure 111/74 109/68 107/66 Pulse Oximetry 97 95 96 09/11/21 09:00 09/11/21 09:28 09/11/21 10:00 Temperature 97.4 F Pulse Rate 83 80 78 Respiratory Rate 16 16 16 Blood Pressure 128/70 115/74 126/71 Pulse Oximetry 98 97 97 09/11/21 18:00 Temperature 97 F Pulse Rate 98 Respiratory Rate 22 H Blood Pressure 112/72 Pulse Oximetry BMI result Body Mass Index 28.5 Labs Results: 09/09/21 09:11 09/09/21 09:11 Labs: Laboratory Results - last 48 hr 09/09/21 09/09/21 09/10/21 09:11 09:11 08:41 Estimat Average Glucose 97 Hemoglobin A1c % 5.0 MARLEN Screen NEGATIVE [place] Progressive Test 1.46 H Imaging Radiology Impressions: ITS Impressions Chest X-Ray 08/26/21 14:28 IMPRESSION: Low lung volume and nonspecific subtle bibasilar airspace disease, may represent hypoventilatory, atelectatic changes versus subtle infiltrate or combination thereof. No evidence of any dense airspace pneumonia. Medications Medications Current Medications Acetaminophen (Acetaminophen 325 Mg Tablet) 975 mg PO QID PRN PRN Reason: Mild Pain (Scale Score 1-4) Last Admin: 09/10/21 00:06 Dose: 975 mg Documented by: Al Hydroxide/Mg Hydroxide (Magnesium Hydrox/Alum Hydrox 30 Ml Oral.Susp) 30 ml PO Q6H PRN PRN Reason: Heartburn/Nausea Amlodipine Besylate (Amlodipine Besylate 10 Mg Tablet) 10 mg PO DAILY [facility]; Protocol Last Admin: 09/11/21 11:04 Dose: 10 mg Documented by: Aripiprazole (Aripiprazole Er 400 Mg Suser.Syr) 400 mg IM Q28D [facility] Last Admin: 08/20/21 14:09 Dose: 400 mg Documented by: Bisoprolol Fumarate (Bisoprolol Fumarate 5 Mg Tablet) 5 mg PO DAILY [facility] Last Admin: 09/11/21 11:04 Dose: 5 mg Documented by: Clonazepam (Clonazepam 1 Mg Tablet) 1 mg PO BID@0830,1330 [facility] Last Admin: 09/11/21 13:50 Dose: 1 mg Documented by: Clonazepam (Clonazepam 1 Mg Tablet) 2 mg PO BEDTIME [facility] Last Admin: 09/11/21 22:06 Dose: 2 mg Documented by: Loperamide HCl (Loperamide Hcl 2 Mg Capsule) 2 mg PO Q4H PRN PRN Reason: Diarrhea Last Admin: 08/27/21 12:31 Dose: 2 mg Documented by: Magnesium Hydroxide (Milk Of Magnesia 30 Ml Oral.Susp) 30 ml PO DAILY PRN PRN Reason: Constipation Multivitamins/Vitamin C (Multivitamin Tablet) 1 tab PO DAILY [facility] Last Admin: 09/11/21 11:04 Dose: 1 tab Documented by: Nystatin (Nystatin Oral Susp 500,000 Unit/5 Ml Oral.Susp) 400,000 unit BUCCAL QID [facility]; Protocol Last Admin: 09/11/21 22:05 Dose: 400,000 unit Documented by: Olanzapine (Olanzapine 10 Mg Tablet) 10 mg PO BID [facility] Last Admin: 09/11/21 22:06 Dose: 10 mg Documented by: Quetiapine Fumarate (Quetiapine Fumarate 100 Mg Tablet) 100 mg PO Q4H PRN PRN Reason: Psychosis Last Admin: 09/11/21 14:30 Dose: 100 mg Documented by: Allergies Allergies Allergy/AdvReac Type Severity Reaction Status Date / Time haloperidol [From Haldol] Allergy Unknown Verified 07/22/20 03:38 Assessment & Plan Assessment & Plan (1) Bipolar affective disorder, mixed, severe, with psychotic behavior: Status: Acute Code(s): F31.64 - Bipolar disorder, current episode mixed, severe, with psychotic features Assessment and Plan: 09/04/21 Unclear questionable adverse effect from succinylcholine with normal to Path potassium an EKG. Anesthesiology present discussed not using succinylcholine next treatment but to use non dipole arising agent will lower beta-audrey encourage fluids creatinine elevated was given fluids at ECT 09/05/21 Remains manic psychotic inc zyprexa 10 tid inc klonapin 1 bid 2 hs cont ect hx nms has renal insuff encourage fluids 09/07/21 Continue ECT and course of tx 09/08/21 continue current treatment 09/10/21 Discussed with hcp use of clozaril cont ect try and taper down medication to see if any contribution to manic confiusion some dec aggression some inc linear thought 09/11/2021 Clozapine had been discussed with the family and healthcare proxy start low-dose clozapine. Will try and taper olanzapine lower benzodiazepines as tolerated continues to require 2-1 for constant redirection clozapine indicated for treatment resistant manic illness continue ECT he did show improvement today History of renal insufficiency creatinine 1.8 unclear basic etiology patient was on lithium as a an adult (2) Dyskinesia, tardive: Status: Acute Code(s): G24.01 - Drug induced subacute dyskinesia I spent minutes with the patient and/or on the patient floor today, greater than?50% of which was spent counseling/coordinating care. Reason for contiued inpatient stay Substantial Risk for: harm to others, inability to function, rapid decompensation and med/psych decompensation
[2021-09-12] MEDS: QUEtiapine Fumarate 100 MG TABLET PO (01:32)
[2021-09-12] MEDS: cloZAPine 25 MG TABLET 12.5 MG PO ×2 (01:33→09:35)
[2021-09-12 09:00] VITALS: BP 118/73; PULSE 104; RESP 18; TEMP 36.6; O2SAT 98
[2021-09-12] MEDS: Bisoprolol Fumarate 5 MG TABLET PO (09:37)
[2021-09-12] MEDS: Multivitamin TABLET 1 TAB PO (09:37)
[2021-09-12] MEDS: OLANZapine 10 MG TABLET PO ×2 (09:38→21:08)
[2021-09-12] MEDS: clonazePAM 1 MG TABLET PO ×2 (09:38→21:08)
[2021-09-12] MEDS: amLODIPine Besylate 10 MG TABLET PO (09:38)
[2021-09-12] MEDS: Nystatin Oral Susp 500,000 UNIT/5 ML ORAL.SUSP 400000 UNIT BUCCAL ×2 (09:38→21:58)
--- NOTE | 2021-09-12 17:48 | P.CONNP_ITS ---
History of Present Illness Reason for Consult Consult date: 09/12/21 Reason for consult: HTN, CKD, ELectrolyte Mgt Chief Complaint Chief complaint: joleen History of Present Illness Narrative: The patient is a 46 yo male with past medical history of Bipolar affective disorder, mixed, severe, with psychotic behavior, Hypertension, hyperlipidemia, tardive dyskinesia, and manic behavior who is being treated with ECT. Nephrology was consulted to assist with mgt of hypertension, electrolytes, and risk stratification for arcadio. ROS difficult to ascertain as patient was manic during interview and provided tangential responses with frequent getting up and walking away. Review of Systems Review of Systems Yes all other systems are reviewed and are negative Constitutional: Reports as per [facility] Past Medical History Medical History HTN (hypertension) Kidney problem Functional capacity: independent ambulation Social History Social History Household Members: Spouse Household Members Other:: Housing: House Do you presently have visiting nurse or other home services: No Unable to assess alcohol history related to: Unknown Patient Tobacco Use Status: Tobacco use Unknown Second Hand Smoke Exposure: No Use of substances other than those prescribed or required for medical reasons: Unknown Currently Displaying Signs/Symptoms of Drug Intoxication Withdrawal: No Any prior treatment program specific to substance use: No Advance Directives: No Advance Directives Information Provided: No Advance Directives on File: No Healthcare Proxy: Yes Guardian: No Do you have thoughts of harming others: None Do you have a plan to hurt others: No Plan Recently lost weight without trying: Unsure How much weight loss: Unsure service: No Sexual orientation: Straight/Heterosexual Meds Allergies Allergy/AdvReac Type Severity Reaction Status Date / Time haloperidol [From Haldol] Allergy Unknown Verified 07/22/20 03:38 Active Medications: Current Medications Acetaminophen (Acetaminophen 325 Mg Tablet) 975 mg PO QID PRN PRN Reason: Mild Pain (Scale Score 1-4) Last Admin: 09/10/21 00:06 Dose: 975 mg Documented by: Al Hydroxide/Mg Hydroxide (Magnesium Hydrox/Alum Hydrox 30 Ml Oral.Susp) 30 ml PO Q6H PRN PRN Reason: Heartburn/Nausea Amlodipine Besylate (Amlodipine Besylate 10 Mg Tablet) 10 mg PO DAILY [facility]; Protocol Last Admin: 09/12/21 09:38 Dose: 10 mg Documented by: Aripiprazole (Aripiprazole Er 400 Mg Suser.Syr) 400 mg IM Q28D [facility] Last Admin: 08/20/21 14:09 Dose: 400 mg Documented by: Bisoprolol Fumarate (Bisoprolol Fumarate 5 Mg Tablet) 5 mg PO DAILY [facility] Last Admin: 09/12/21 09:37 Dose: 5 mg Documented by: Clonazepam (Clonazepam 1 Mg Tablet) 2 mg PO BEDTIME [facility] Last Admin: 09/11/21 22:06 Dose: 2 mg Documented by: Clonazepam (Clonazepam 1 Mg Tablet) 1 mg PO BID [facility] Clozapine (Clozapine 25 Mg Tablet) 25 mg PO BEDTIME [facility] Loperamide HCl (Loperamide Hcl 2 Mg Capsule) 2 mg PO Q4H PRN PRN Reason: Diarrhea Last Admin: 08/27/21 12:31 Dose: 2 mg Documented by: Magnesium Hydroxide (Milk Of Magnesia 30 Ml Oral.Susp) 30 ml PO DAILY PRN PRN Reason: Constipation Multivitamins/Vitamin C (Multivitamin Tablet) 1 tab PO DAILY [facility] Last Admin: 09/12/21 09:37 Dose: 1 tab Documented by: Nystatin (Nystatin Oral Susp 500,000 Unit/5 Ml Oral.Susp) 400,000 unit BUCCAL QID [facility]; Protocol Last Admin: 09/12/21 16:34 Dose: Not Given Documented by: Olanzapine (Olanzapine 10 Mg Tablet) 10 mg PO BEDTIME [facility] Quetiapine Fumarate (Quetiapine Fumarate 100 Mg Tablet) 100 mg PO Q4H PRN PRN Reason: Psychosis Last Admin: 09/12/21 01:32 Dose: 100 mg Documented by: Home Medications Medication Instructions Recorded Confirmed Last Taken Type acetaminophen 500 mg tablet 1,000 mg PO QID PRN 08/16/21 08/16/21 Unknown Histor y (Tylenol Extra Strength) amlodipine 10 mg tablet 1 tab PO DAILY 08/16/21 08/16/21 Unknown History aripiprazole 400 mg intramuscular 400 mg IM QMONTH 08/16/21 08/16/21 Unknown History suspension,extended release (Abilify Maintena) bisoprolol 10 1 tab PO DAILY 08/16/21 08/16/21 Unknown History mg-hydrochlorothiazide 6.25 mg tablet multivitamin 1 tab PO DAILY 08/16/21 08/16/21 Unknown History vitamin B complex 1 tab PO DAILY 08/16/21 08/16/21 Unknown History Physical Exam Vital Signs: Last Vital Signs Temp 97.9 F 09/12/21 09:00 Pulse 104 H 09/12/21 09:00 Resp 18 09/12/21 09:00 BP 118/73 09/12/21 09:00 Pulse Ox 98 09/12/21 09:00 BMI result Body Mass Index 28.5 Const General: no acute distress HEENT Head: Yes normocephalic Neck Neck: Yes no JVD Resp Auscultation: clear to auscultation bilaterally Cardio Jugular venous distension: no JVD Rate: regular rate Rhythm: regular rhythm Heart sounds: S1 normal heart sound present and S2 normal heart sound present GI Auscultation: normal bowel sounds Neuro General: tone normal and moves all extremities Extrem General: Yes no clubbing, cyanosis or edema Psych Speech and movement: Slurred speech present and Slowed speech present (Psych) Thought process: Flight of ideas present and Illogical thought process present Thought content: Compulsions present (thought content) Insight: Poor insight present (Psych) Judgement: Poor judgement present (Psych) Results Lab Results Result Diagrams: 09/09/21 09:11 09/09/21 09:11 Assessment and Plan (1) Hypertension: Status: Acute Plan Hypertension: Low sodium diet < 2G/day bp appears normotensive at time of exam. Would monitor for now. Slightly tachycardic in setting of agitation. Please add: Renal panel UA, MACR, UPCR CBC Procedures Date of Service Date of Service: 09/12/21
[2021-09-12 18:00] VITALS: BP 124/74; PULSE 78; RESP 20; TEMP 36.6; O2SAT 98
--- NOTE | 2021-09-12 18:17 | HO.PSYCHPN ---
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 Tolerated initial dosing. Patient was on lower dose of olanzapine appears not to be effective. ECT schedule for tomorrow. Patient was quite agitated manic last night this afternoon had more periods of linear thought less derailment less flight of ideas slept number of hours in the afternoon. Mental Status Exam Mental Status Exam Narrative: Patient was lethargic difficult to arouse when seen. Reportedly had been awake alert able to call his family earlier reported to be more linear less agitated no reported si hi periods of agitation Diagnostics Vital Signs (24Hr): Vital Signs - 24 hr 09/12/21 09:00 Temperature 97.9 F Pulse Rate 104 H Respiratory Rate 18 Blood Pressure 118/73 Pulse Oximetry 98 BMI result Body Mass Index 28.5 Labs Results: 09/09/21 09:11 09/09/21 09:11 Labs: Laboratory Results - last 48 hr 09/09/21 09:11 MARLEN Screen NEGATIVE MARLEN Titer TNP MARLEN Titer 2 TNP MARLEN Titer 3 TNP MARLEN Pattern TNP MARLEN Pattern 2 TNP MARLEN Pattern 3 TNP Imaging Radiology Impressions: ITS Impressions Chest X-Ray 08/26/21 14:28 IMPRESSION: Low lung volume and nonspecific subtle bibasilar airspace disease, may represent hypoventilatory, atelectatic changes versus subtle infiltrate or combination thereof. No evidence of any dense airspace pneumonia. Medications Medications Current Medications Acetaminophen (Acetaminophen 325 Mg Tablet) 975 mg PO QID PRN PRN Reason: Mild Pain (Scale Score 1-4) Last Admin: 09/10/21 00:06 Dose: 975 mg Documented by: Al Hydroxide/Mg Hydroxide (Magnesium Hydrox/Alum Hydrox 30 Ml Oral.Susp) 30 ml PO Q6H PRN PRN Reason: Heartburn/Nausea Amlodipine Besylate (Amlodipine Besylate 10 Mg Tablet) 10 mg PO DAILY [facility]; Protocol Last Admin: 09/12/21 09:38 Dose: 10 mg Documented by: Aripiprazole (Aripiprazole Er 400 Mg Suser.Syr) 400 mg IM Q28D [facility] Last Admin: 08/20/21 14:09 Dose: 400 mg Documented by: Bisoprolol Fumarate (Bisoprolol Fumarate 5 Mg Tablet) 5 mg PO DAILY [facility] Last Admin: 09/12/21 09:37 Dose: 5 mg Documented by: Clonazepam (Clonazepam 1 Mg Tablet) 1 mg PO BID [facility] Clozapine (Clozapine 25 Mg Tablet) 25 mg PO BEDTIME [facility] Loperamide HCl (Loperamide Hcl 2 Mg Capsule) 2 mg PO Q4H PRN PRN Reason: Diarrhea Last Admin: 08/27/21 12:31 Dose: 2 mg Documented by: Magnesium Hydroxide (Milk Of Magnesia 30 Ml Oral.Susp) 30 ml PO DAILY PRN PRN Reason: Constipation Multivitamins/Vitamin C (Multivitamin Tablet) 1 tab PO DAILY [facility] Last Admin: 09/12/21 09:37 Dose: 1 tab Documented by: Nystatin (Nystatin Oral Susp 500,000 Unit/5 Ml Oral.Susp) 400,000 unit BUCCAL QID [facility]; Protocol Last Admin: 09/12/21 16:34 Dose: Not Given Documented by: Olanzapine (Olanzapine 10 Mg Tablet) 10 mg PO BEDTIME [facility] Quetiapine Fumarate (Quetiapine Fumarate 100 Mg Tablet) 100 mg PO Q4H PRN PRN Reason: Psychosis Last Admin: 09/12/21 01:32 Dose: 100 mg Documented by: Allergies Allergies Allergy/AdvReac Type Severity Reaction Status Date / Time haloperidol [From Haldol] Allergy Unknown Verified 07/22/20 03:38 Assessment & Plan Assessment & Plan (1) Hypertension: Status: Acute Code(s): I10 - Essential (primary) hypertension (2) Bipolar affective disorder, mixed, severe, with psychotic behavior: Status: Acute Code(s): F31.64 - Bipolar disorder, current episode mixed, severe, with psychotic features Assessment and Plan: Renal consult reviewed. Patient hopefully appears to be cycling down perhaps from his joleen continue ECT Clozaril started remains on two-to-one for present Plan Hypertension: Low sodium diet < 2G/day bp appears normotensive at time of exam. Would monitor for now. Slightly tachycardic in setting of agitation. Please add: Renal panel UA, MACR, UPCR CBC I spent minutes with the patient and/or on the patient floor today, greater than?50% of which was spent counseling/coordinating care. Reason for contiued inpatient stay Substantial Risk for: harm to others, rapid decompensation and med/psych decompensation
[2021-09-12] MEDS: cloZAPine 25 MG TABLET PO (21:07)
[2021-09-13] VITALS (13 sets, daily range): BP systolic 111–132; BP diastolic 58–84; PULSE 79–97; RESP 14–18; TEMP 36.1–37.1; O2SAT 93–98
--- NOTE | 2021-09-13 07:02 | P.CONAN_ITS ---
[facility] Active Problems Active Problems: All Active Problems (Updated 08/20/21 @ 17:39 by Fredy Caldera DO) Physical exam (Acute) Bipolar affective disorder, mixed, severe, with psychotic behavior (Acute) Bipolar affective, manic, full remis (Acute) Hypertension (Acute) Hyperlipidemia (Acute) Dyskinesia, tardive (Acute) Manic behavior (Acute) Rash (Acute) Past Medical History Medical History HTN (hypertension) Kidney problem Functional capacity: independent ambulation Family History Family history of problems with anesthesia: No Surgical History History of Problems with Anesthesia: No Social History Social History Household Members: Spouse Household Members Other:: Housing: House Do you presently have visiting nurse or other home services: No Unable to assess alcohol history related to: Unknown Patient Tobacco Use Status: Tobacco use Unknown Second Hand Smoke Exposure: No Use of substances other than those prescribed or required for medical reasons: Unknown Currently Displaying Signs/Symptoms of Drug Intoxication Withdrawal: No Any prior treatment program specific to substance use: No Advance Directives: No Advance Directives Information Provided: No Advance Directives on File: No Healthcare Proxy: Yes Guardian: No Do you have thoughts of harming others: None Do you have a plan to hurt others: No Plan Recently lost weight without trying: Unsure How much weight loss: Unsure service: No Sexual orientation: Straight/Heterosexual Meds Allergies Allergy/AdvReac Type Severity Reaction Status Date / Time haloperidol [From Haldol] Allergy Unknown Verified 07/22/20 03:38 Active Medications: Current Medications Acetaminophen (Acetaminophen 325 Mg Tablet) 975 mg PO QID PRN PRN Reason: Mild Pain (Scale Score 1-4) Last Admin: 09/10/21 00:06 Dose: 975 mg Documented by: Al Hydroxide/Mg Hydroxide (Magnesium Hydrox/Alum Hydrox 30 Ml Oral.Susp) 30 ml PO Q6H PRN PRN Reason: Heartburn/Nausea Amlodipine Besylate (Amlodipine Besylate 10 Mg Tablet) 10 mg PO DAILY [facility]; Protocol Last Admin: 09/12/21 09:38 Dose: 10 mg Documented by: Aripiprazole (Aripiprazole Er 400 Mg Suser.Syr) 400 mg IM Q28D [facility] Last Admin: 08/20/21 14:09 Dose: 400 mg Documented by: Bisoprolol Fumarate (Bisoprolol Fumarate 5 Mg Tablet) 5 mg PO DAILY [facility] Last Admin: 09/12/21 09:37 Dose: 5 mg Documented by: Clonazepam (Clonazepam 1 Mg Tablet) 1 mg PO BID [facility] Last Admin: 09/12/21 21:08 Dose: 1 mg Documented by: Clozapine (Clozapine 25 Mg Tablet) 25 mg PO BEDTIME [facility] Last Admin: 09/12/21 21:07 Dose: 25 mg Documented by: Loperamide HCl (Loperamide Hcl 2 Mg Capsule) 2 mg PO Q4H PRN PRN Reason: Diarrhea Last Admin: 08/27/21 12:31 Dose: 2 mg Documented by: Magnesium Hydroxide (Milk Of Magnesia 30 Ml Oral.Susp) 30 ml PO DAILY PRN PRN Reason: Constipation Multivitamins/Vitamin C (Multivitamin Tablet) 1 tab PO DAILY [facility] Last Admin: 09/12/21 09:37 Dose: 1 tab Documented by: Nystatin (Nystatin Oral Susp 500,000 Unit/5 Ml Oral.Susp) 400,000 unit BUCCAL QID [facility]; Protocol Last Admin: 09/12/21 21:58 Dose: 400,000 unit Documented by: Olanzapine (Olanzapine 10 Mg Tablet) 10 mg PO BEDTIME [facility] Last Admin: 09/12/21 21:08 Dose: 10 mg Documented by: Quetiapine Fumarate (Quetiapine Fumarate 100 Mg Tablet) 100 mg PO Q4H PRN PRN Reason: Psychosis Last Admin: 09/12/21 01:32 Dose: 100 mg Documented by: Home Medications Medication Instructions Recorded Confirmed Last Taken Type acetaminophen 500 mg tablet 1,000 mg PO QID PRN 08/16/21 08/16/21 Unknown History (Tylenol Extra Strength) amlodipine 10 mg tablet 1 tab PO DAILY 08/16/21 08/16/21 Unknown History aripiprazole 400 mg intramuscular 400 mg IM QMONTH 08/16/21 08/16/21 Unknown History suspension,extended release (Abilify Maintena) bisoprolol 10 1 tab PO DAILY 08/16/21 08/16/21 Unknown History mg-hydrochlorothiazide 6.25 mg tablet multivitamin 1 tab PO DAILY 08/16/21 08/16/21 Unknown History vitamin B complex 1 tab PO DAILY 08/16/21 08/16/21 Unknown History Exam Exam Date and Time: September 13, 2021 0702 Height,Weight and Vital Signs: Height 6 ft 2 in Weight 101 kg Last Vital Signs Temp 97.9 F 09/13/21 06:59 Pulse 86 09/13/21 06:59 Resp 14 09/13/21 06:59 BP 122/79 09/13/21 06:59 Pulse Ox 97 09/13/21 06:59 Pertinent Lab Results Pertinent Lab Results: Laboratory Tests 08/16/21 08/16/21 08/16/21 16:05 16:42 16:42 WBC RBC Hgb Hct MCV MCH MCHC RDW Plt Count MPV Immature Gran % (Auto) Neut % (Auto) Lymph % (Auto) [place] % (Auto) Eos % (Auto) Baso % (Auto) Lymph # (Auto) [place] # (Auto) Eos # (Auto) Baso # (Auto) Abs Immat Gran (auto) Absolute Neuts (auto) Absolute Nucleated RBC Nucleated RBC % (auto) ESR Sodium Potassium Chloride Carbon Dioxide Anion Gap BUN Creatinine Estim Creat Clear Calc Estimated GFR Random Glucose Fasting Glucose Estimat Average Glucose Hemoglobin A1c % Calcium Magnesium Iron TIBC % Saturation Unsat Iron Binding Total Bilirubin Direct Bilirubin AST ALT Alkaline Phosphatase Ammonia Lactate Dehydrogenase Total Creatine Kinase Total Protein Albumin Triglycerides Cholesterol LDL Cholesterol, Calc HDL Cholesterol Vitamin B12 Folate TSH Urine Color YELLOW Urine Appearance CLEAR Urine pH 6.0 Ur Specific [place] 1.010 Urine Protein 2+ H Urine Glucose (UA) NEG Urine Ketones NEG Urine Blood 2+ H Urine Nitrite NEG Ur Leukocyte Esterase NEG Urine RBC 5-9 H Urine WBC 0 Ur Squamous Epith Cells NONE Urine Bacteria NONE Urine Opiates Screen Not Detected Urine Fentanyl Screen Not Detected Ur Barbiturates Screen Not Detected Valproic Acid Ur Phencyclidine Scrn Not Detected Ur Amphetamines Screen Not Detected U Benzodiazepines Scrn Not Detected Urine Cocaine Screen Not Detected U Marijuana (THC) Screen Not Detected Ethyl Alcohol Rheumatoid Factor MARLEN Screen MARLEN Titer MARLEN Titer 2 MARLEN Titer 3 MARLEN Pattern MARLEN Pattern 2 MARLEN Pattern 3 Lyme Progressive Test COVID-19 (URI) Negative COVID-19 Clin Com See Note Influenza Type A (PCR) Influenza Type B (PCR) RSV RNA Qual (PCR) SARS-CoV-2 RNA (RT-PCR) 08/16/21 08/16/21 08/16/21 16:51 16:51 16:51 WBC 7.8 RBC 4.83 Hgb 14.8 Hct 42.1 MCV 87.2 MCH 30.6 MCHC 35.2 RDW 12.7 Plt Count 226 MPV 9.3 L Immature Gran % (Auto) 0.4 Neut % (Auto) 72.1 Lymph % (Auto) 15.1 L [place] % (Auto) 8.5 Eos % (Auto) 3.5 Baso % (Auto) 0.4 Lymph # (Auto) 1.2 [place] # (Auto) 0.7 Eos # (Auto) 0.3 Baso # (Auto) 0.0 Abs Immat Gran (auto) 0.03 Absolute Neuts (auto) 5.6 Absolute Nucleated RBC 0.000 Nucleated RBC % (auto) 0.0 ESR Sodium 138 Potassium 3.9 Chloride 102 Carbon Dioxide 24 Anion Gap 16 BUN 16 Creatinine 1.49 H Estim Creat Clear Calc 80.2 Estimated GFR 51 Random Glucose 117 H Fasting Glucose Estimat Average Glucose Hemoglobin A1c % Calcium 10.1 D Magnesium Iron TIBC % Saturation Unsat Iron Binding Total Bilirubin 0.7 Direct Bilirubin AST 47 H D ALT 63 H Alkaline Phosphatase 56 Ammonia Lactate Dehydrogenase Total Creatine Kinase Total Protein 8.2 H D Albumin 4.9 D Triglycerides Cholesterol LDL Cholesterol, Calc HDL Cholesterol Vitamin B12 Folate TSH Urine Color Urine Appearance Urine pH Ur Specific [place] Urine Protein Urine Glucose (UA) Urine Ketones Urine Blood Urine Nitrite Ur Leukocyte Esterase Urine RBC Urine WBC Ur Squamous Epith Cells Urine Bacteria Urine Opiates Screen Urine Fentanyl Screen Ur Barbiturates Screen Valproic Acid Ur Phencyclidine Scrn Ur Amphetamines Screen U Benzodiazepines Scrn Urine Cocaine Screen U Marijuana (THC) Screen Ethyl Alcohol < 10 Rheumatoid Factor MARLEN Screen MARLEN Titer MARLEN Titer 2 MARLEN Titer 3 MARLEN Pattern MARLEN Pattern 2 MARLEN Pattern 3 Lyme Progressive Test COVID-19 (URI) COVID-19 Clin Com Influenza Type A (PCR) Influenza Type B (PCR) RSV RNA Qual (PCR) SARS-CoV-2 RNA (RT-PCR) 08/17/21 08/17/21 08/17/21 06:42 06:42 06:42 WBC RBC Hgb Hct MCV MCH MCHC RDW Plt Count MPV Immature Gran % (Auto) Neut % (Auto) Lymph % (Auto) [place] % (Auto) Eos % (Auto) Baso % (Auto) Lymph # (Auto) [place] # (Auto) Eos # (Auto) Baso # (Auto) Abs Immat Gran (auto) Absolute Neuts (auto) Absolute Nucleated RBC Nucleated RBC % (auto) ESR Sodium 138 Potassium 3.9 Chloride 102 Carbon Dioxide 24 Anion Gap 16 BUN 12 Creatinine 1.47 H Estim Creat Clear Calc 81.3 Estimated GFR 52 Random Glucose Fasting Glucose 112 H Estimat Average Glucose 97 Hemoglobin A1c % 5.0 Calcium 10.2 Magnesium Iron TIBC % Saturation Unsat Iron Binding Total Bilirubin 1.2 H Direct Bilirubin AST 48 H ALT 65 H Alkaline Phosphatase 56 Ammonia Lactate Dehydrogenase Total Creatine Kinase Total Protein 8.5 H Albumin 4.9 Triglycerides 133 Cholesterol 226 D LDL Cholesterol, Calc 152 HDL Cholesterol 48 D Vitamin B12 558 Folate > 20.0 TSH 1.87 Urine Color Urine Appearance Urine pH Ur Specific [place] Urine Protein Urine Glucose (UA) Urine Ketones Urine Blood Urine Nitrite Ur Leukocyte Esterase Urine RBC Urine WBC Ur Squamous Epith Cells Urine Bacteria Urine Opiates Screen Urine Fentanyl Screen Ur Barbiturates Screen Valproic Acid Ur Phencyclidine Scrn Ur Amphetamines Screen U Benzodiazepines Scrn Urine Cocaine Screen U Marijuana (THC) Screen Ethyl Alcohol Rheumatoid Factor MARLEN Screen MARLEN Titer MARLEN Titer 2 MARLEN Titer 3 MARLEN Pattern MARLEN Pattern 2 MARLEN Pattern 3 Lyme Progressive Test COVID-19 (URI) COVID-19 Clin Com Influenza Type A (PCR) Influenza Type B (PCR) RSV RNA Qual (PCR) SARS-CoV-2 RNA (RT-PCR) 08/24/21 08/24/21 08/25/21 07:19 07:19 17:19 WBC 5.9 RBC 4.04 L Hgb 12.2 L Hct 35.1 L MCV 86.9 MCH 30.2 MCHC 34.8 RDW 12.6 Plt Count 189 MPV 9.2 L Immature Gran % (Auto) 0.3 Neut % (Auto) 68.7 Lymph % (Auto) 16.5 L [place] % (Auto) 10.8 Eos % (Auto) 3.5 Baso % (Auto) 0.2 Lymph # (Auto) 1.0 L [place] # (Auto) 0.6 Eos # (Auto) 0.2 Baso # (Auto) 0.0 Abs Immat Gran (auto) 0.02 Absolute Neuts (auto) 4.1 Absolute Nucleated RBC 0.000 Nucleated RBC % (auto) 0.0 ESR Sodium 141 141 Potassium 3.1 L D 3.0 L Chloride 105 102 Carbon Dioxide 24 27 Anion Gap 15 15 BUN 17 H 13 Creatinine 1.68 H 1.45 H Estim Creat Clear Calc 71.2 82.5 Estimated GFR 45 53 Random Glucose Fasting Glucose 90 Estimat Average Glucose Hemoglobin A1c % Calcium 9.1 D Magnesium Iron TIBC % Saturation Unsat Iron Binding Total Bilirubin 0.7 0.5 Direct Bilirubin 0.2 AST 120 H 119 H ALT 47 H 56 H Alkaline Phosphatase 45 43 Ammonia Lactate Dehydrogenase 472 H Total Creatine Kinase 6578 H Total Protein 6.2 L D 5.8 L Albumin 3.8 D 3.5 Triglycerides Cholesterol LDL Cholesterol, Calc HDL Cholesterol Vitamin B12 Folate TSH Urine Color Urine Appearance Urine pH Ur Specific [place] Urine Protein Urine Glucose (UA) Urine Ketones Urine Blood Urine Nitrite Ur Leukocyte Esterase Urine RBC Urine WBC Ur Squamous Epith Cells Urine Bacteria Urine Opiates Screen Urine Fentanyl Screen Ur Barbiturates Screen Valproic Acid 103.1 H Ur Phencyclidine Scrn Ur Amphetamines Screen U Benzodiazepines Scrn Urine Cocaine Screen U Marijuana (THC) Screen Ethyl Alcohol Rheumatoid Factor MARLEN Screen MARLEN Titer MARLEN Titer 2 MARLEN Titer 3 MARLEN Pattern MARLEN Pattern 2 MARLEN Pattern 3 Lyme Progressive Test COVID-19 (URI) COVID-19 Clin Com Influenza Type A (PCR) Influenza Type B (PCR) RSV RNA Qual (PCR) SARS-CoV-2 RNA (RT-PCR) 08/25/21 08/26/21 08/26/21 17:19 07:53 07:53 WBC 5.6 RBC 3.90 L Hgb 11.9 L Hct 34.4 L MCV 88.2 MCH 30.5 MCHC 34.6 RDW 12.9 Plt Count 183 MPV 9.1 L Immature Gran % (Auto) 0.5 H Neut % (Auto) 62.7 Lymph % (Auto) 18.9 L [place] % (Auto) 10.9 Eos % (Auto) 6.6 H Baso % (Auto) 0.4 Lymph # (Auto) 1.1 L [place] # (Auto) 0.6 Eos # (Auto) 0.4 Baso # (Auto) 0.0 Abs Immat Gran (auto) 0.03 Absolute Neuts (auto) 3.5 Absolute Nucleated RBC 0.000 Nucleated RBC % (auto) 0.0 ESR Sodium 144 Cancelled Potassium 3.9 D Cancelled Chloride 105 Cancelled Carbon Dioxide 26 Cancelled Anion Gap 17 Cancelled BUN 11 Creatinine 1.26 Estim Creat Clear Calc 94.9 Estimated GFR > 60 Random Glucose 93 Fasting Glucose Estimat Average Glucose Hemoglobin A1c % Calcium 9.1 Magnesium Cancelled Iron TIBC % Saturation Unsat Iron Binding Total Bilirubin Direct Bilirubin AST ALT Alkaline Phosphatase Ammonia Lactate Dehydrogenase Total Creatine Kinase 5470 H Total Protein Albumin Triglycerides Cholesterol LDL Cholesterol, Calc HDL Cholesterol Vitamin B12 Folate TSH Urine Color Urine Appearance Urine pH Ur Specific [place] Urine Protein Urine Glucose (UA) Urine Ketones Urine Blood Urine Nitrite Ur Leukocyte Esterase Urine RBC Urine WBC Ur Squamous Epith Cells Urine Bacteria Urine Opiates Screen Urine Fentanyl Screen Ur Barbiturates Screen Valproic Acid Ur Phencyclidine Scrn Ur Amphetamines Screen U Benzodiazepines Scrn Urine Cocaine Screen U Marijuana (THC) Screen Ethyl Alcohol Rheumatoid Factor [place] Screen MARLEN Titer MARLEN Titer 2 MARLEN Titer 3 MARLEN Pattern MARLEN Pattern 2 MARLEN Pattern 3 Lyme Progressive Test COVID-19 (URI) COVID-19 Clin Com Influenza Type A (PCR) Influenza Type B (PCR) RSV RNA Qual (PCR) SARS-CoV-2 RNA (RT-PCR) 08/26/21 08/26/21 08/27/21 07:53 14:30 08:19 WBC 7.0 5.0 3.8 L RBC 4.35 L 4.17 L 4.41 L Hgb 13.5 L 12.5 L 13.5 L Hct 38.5 L 37.1 L 40.3 L MCV 88.5 89.0 91.4 MCH 31.0 30.0 30.6 MCHC 35.1 33.7 33.5 RDW 12.9 12.8 13.2 Plt Count 200 191 178 MPV 9.4 9.5 9.8 Immature Gran % (Auto) 0.4 1.1 H Neut % (Auto) 86.8 H 74.0 H Lymph % (Auto) 3.9 L 11.9 L [place] % (Auto) 5.6 11.4 H Eos % (Auto) 3.2 1.1 Baso % (Auto) 0.1 0.5 Lymph # (Auto) 0.3 L 0.5 L [place] # (Auto) 0.4 0.4 Eos # (Auto) 0.2 0.0 Baso # (Auto) 0.0 0.0 Abs Immat Gran (auto) 0.03 0.04 H Absolute Neuts (auto) 6.0 2.8 Absolute Nucleated RBC 0.000 0.000 0.000 Nucleated RBC % (auto) 0.0 0.0 0.0 ESR Sodium Potassium Chloride Carbon Dioxide Anion Gap BUN Creatinine Estim Creat Clear Calc Estimated GFR Random Glucose Fasting Glucose Estimat Average Glucose Hemoglobin A1c % Calcium Magnesium Iron TIBC % Saturation Unsat Iron Binding Total Bilirubin Direct Bilirubin AST ALT Alkaline Phosphatase Ammonia Lactate Dehydrogenase Total Creatine Kinase Total Protein Albumin Triglycerides Cholesterol LDL Cholesterol, Calc HDL Cholesterol Vitamin B12 Folate TSH Urine Color Urine Appearance Urine pH Ur Specific [place] Urine Protein Urine Glucose (UA) Urine Ketones Urine Blood Urine Nitrite Ur Leukocyte Esterase Urine RBC Urine WBC Ur Squamous Epith Cells Urine Bacteria Urine Opiates Screen Urine Fentanyl Screen Ur Barbiturates Screen Valproic Acid Ur Phencyclidine Scrn Ur Amphetamines Screen U Benzodiazepines Scrn Urine Cocaine Screen U Marijuana (THC) Screen Ethyl Alcohol Rheumatoid Factor MARLEN Screen MARLEN Titer MARLEN Titer 2 MARLEN Titer 3 MARLEN Pattern MARLEN Pattern 2 MARLEN Pattern 3 Lyme Progressive Test COVID-19 (URI) COVID-19 Clin Com Influenza Type A (PCR) Influenza Type B (PCR) RSV RNA Qual (PCR) SARS-CoV-2 RNA (RT-PCR) 08/27/21 08/27/21 08/27/21 08:19 08:19 13:58 WBC RBC Hgb Hct MCV MCH MCHC RDW Plt Count MPV Immature Gran % (Auto) Neut % (Auto) Lymph % (Auto) [place] % (Auto) Eos % (Auto) Baso % (Auto) Lymph # (Auto) [place] # (Auto) Eos # (Auto) Baso # (Auto) Abs Immat Gran (auto) Absolute Neuts (auto) Absolute Nucleated RBC Nucleated RBC % (auto) ESR Sodium 144 Potassium 3.8 Chloride 107 Carbon Dioxide 24 Anion Gap 17 BUN 21 H D Creatinine 1.54 H Estim Creat Clear Calc 77.6 Estimated GFR 49 Random Glucose Fasting Glucose 75 Estimat Average Glucose Hemoglobin A1c % Calcium 8.8 Magnesium Iron 24 L TIBC 245 % Saturation 10 L Unsat Iron Binding 221 Total Bilirubin 0.6 Direct Bilirubin AST 102 H ALT 73 H Alkaline Phosphatase 47 Ammonia 45 Lactate Dehydrogenase Total Creatine Kinase 3624 H Total Protein 6.0 L Albumin 3.5 Triglycerides Cholesterol LDL Cholesterol, Calc HDL Cholesterol Vitamin B12 Folate TSH Urine Color Urine Appearance Urine pH Ur Specific [place] Urine Protein Urine Glucose (UA) Urine Ketones Urine Blood Urine Nitrite Ur Leukocyte Esterase Urine RBC Urine WBC Ur Squamous Epith Cells Urine Bacteria Urine Opiates Screen Urine Fentanyl Screen Ur Barbiturates Screen Valproic Acid Ur Phencyclidine Scrn Ur Amphetamines Screen U Benzodiazepines Scrn Urine Cocaine Screen U Marijuana (THC) Screen Ethyl Alcohol Rheumatoid Factor MARLEN Screen MARLEN Titer MARLEN Titer 2 MARLEN Titer 3 MARLEN Pattern MARLEN Pattern 2 MARLEN Pattern 3 Lyme Progressive Test COVID-19 (URI) COVID-19 Clin Com Influenza Type A (PCR) NEGATIVE Influenza Type B (PCR) NEGATIVE RSV RNA Qual (PCR) NEGATIVE SARS-CoV-2 RNA (RT-PCR) NEGATIVE 08/28/21 08/29/21 08/29/21 08:59 07:10 07:10 WBC 7.0 RBC 4.18 L Hgb 12.6 L Hct 37.2 L MCV 89.0 MCH 30.1 MCHC 33.9 RDW 13.2 Plt Count 204 MPV 8.9 L Immature Gran % (Auto) 1.0 H Neut % (Auto) 62.8 Lymph % (Auto) 16.3 L [place] % (Auto) 12.9 H Eos % (Auto) 6.7 H Baso % (Auto) 0.3 Lymph # (Auto) 1.1 L [place] # (Auto) 0.9 Eos # (Auto) 0.5 H Baso # (Auto) 0.0 Abs Immat Gran (auto) 0.07 H Absolute Neuts (auto) 4.4 Absolute Nucleated RBC 0.000 Nucleated RBC % (auto) 0.0 ESR Sodium 144 Potassium 3.4 Chloride 107 Carbon Dioxide 29 Anion Gap 11 L BUN 13 Creatinine 1.29 Estim Creat Clear Calc 92.7 Estimated GFR > 60 Random Glucose 107 Fasting Glucose Estimat Average Glucose 94 Hemoglobin A1c % 4.9 Calcium 8.5 Magnesium 1.8 Iron TIBC % Saturation Unsat Iron Binding Total Bilirubin 0.6 Direct Bilirubin AST 69 H ALT 66 H Alkaline Phosphatase 44 Ammonia Lactate Dehydrogenase Total Creatine Kinase 2202 H D Total Protein 5.8 L Albumin 3.3 L Triglycerides Cholesterol LDL Cholesterol, Calc HDL Cholesterol Vitamin B12 Folate TSH Urine Color Urine Appearance Urine pH Ur Specific [place] Urine Protein Urine Glucose (UA) Urine Ketones Urine Blood Urine Nitrite Ur Leukocyte Esterase Urine RBC Urine WBC Ur Squamous Epith Cells Urine Bacteria Urine Opiates Screen Urine Fentanyl Screen Ur Barbiturates Screen Valproic Acid Ur Phencyclidine Scrn Ur Amphetamines Screen U Benzodiazepines Scrn Urine Cocaine Screen U Marijuana (THC) Screen Ethyl Alcohol Rheumatoid Factor MARLEN Screen MARLEN Titer MARLEN Titer 2 MARLEN Titer 3 MARLEN Pattern MARLEN Pattern 2 MARLEN Pattern 3 Lyme Progressive Test COVID-19 (URI) COVID-19 Clin Com Influenza Type A (PCR) Influenza Type B (PCR) RSV RNA Qual (PCR) SARS-CoV-2 RNA (RT-PCR) 09/04/21 09/04/21 09/04/21 07:34 07:34 07:34 WBC 5.6 RBC 4.47 L Hgb 13.3 L Hct 40.5 L MCV 90.6 MCH 29.8 MCHC 32.8 RDW 12.8 Plt Count 210 MPV 9.0 L Immature Gran % (Auto) 1.8 H Neut % (Auto) 52.7 Lymph % (Auto) 27.5 [place] % (Auto) 12.6 H Eos % (Auto) 5.0 H Baso % (Auto) 0.4 Lymph # (Auto) 1.5 [place] # (Auto) 0.7 Eos # (Auto) 0.3 Baso # (Auto) 0.0 Abs Immat Gran (auto) 0.10 H Absolute Neuts (auto) 2.9 Absolute Nucleated RBC 0.000 Nucleated RBC % (auto) 0.0 ESR Sodium 145 145 Potassium 4.6 D 4.6 Chloride 110 H 111 H Carbon Dioxide 24 23 Anion Gap 16 16 BUN 24 H D 24 H Creatinine 1.99 H 2.00 H Estim Creat Clear Calc 60.1 59.8 Estimated GFR 37 36 Random Glucose 109 Fasting Glucose 108 H D Estimat Average Glucose Hemoglobin A1c % Calcium 9.6 D 9.5 Magnesium Iron TIBC % Saturation Unsat Iron Binding Total Bilirubin 0.5 Direct Bilirubin AST 27 D ALT 45 H Alkaline Phosphatase 46 Ammonia Lactate Dehydrogenase Total Creatine Kinase 248 H D 245 H Total Protein 6.6 Albumin 3.8 Triglycerides Cholesterol LDL Cholesterol, Calc HDL Cholesterol Vitamin B12 Folate TSH Urine Color Urine Appearance Urine pH Ur Specific [place] Urine Protein Urine Glucose (UA) Urine Ketones Urine Blood Urine Nitrite Ur Leukocyte Esterase Urine RBC Urine WBC Ur Squamous Epith Cells Urine Bacteria Urine Opiates Screen Urine Fentanyl Screen Ur Barbiturates Screen Valproic Acid Ur Phencyclidine Scrn Ur Amphetamines Screen U Benzodiazepines Scrn Urine Cocaine Screen U Marijuana (THC) Screen Ethyl Alcohol Rheumatoid Factor MARLEN Screen MARLEN Titer MARLEN Titer 2 MARLEN Titer 3 MARLEN Pattern MARLEN Pattern 2 MARLEN Pattern 3 Lyme Progressive Test COVID-19 (URI) COVID-19 Clin Com Influenza Type A (PCR) Influenza Type B (PCR) RSV RNA Qual (PCR) SARS-CoV-2 RNA (RT-PCR) 09/04/21 09/06/21 09/06/21 10:30 08:33 08:33 WBC RBC Hgb Hct MCV MCH MCHC RDW Plt Count MPV Immature Gran % (Auto) Neut % (Auto) Lymph % (Auto) [place] % (Auto) Eos % (Auto) Baso % (Auto) Lymph # (Auto) [place] # (Auto) Eos # (Auto) Baso # (Auto) Abs Immat Gran (auto) Absolute Neuts (auto) Absolute Nucleated RBC Nucleated RBC % (auto) ESR Sodium 146 H 143 Potassium 4.6 4.6 Chloride 110 H 110 H Carbon Dioxide 26 23 Anion Gap 15 15 BUN 22 H 22 H Creatinine 1.86 H 1.77 H Estim Creat Clear Calc 64.3 67.5 Estimated GFR 40 42 Random Glucose 89 92 Fasting Glucose Estimat Average Glucose Hemoglobin A1c % Calcium 9.5 9.7 Magnesium Iron TIBC % Saturation Unsat Iron Binding Total Bilirubin Direct Bilirubin AST ALT Alkaline Phosphatase Ammonia Lactate Dehydrogenase Total Creatine Kinase Total Protein Albumin Triglycerides Cholesterol LDL Cholesterol, Calc HDL Cholesterol Vitamin B12 Folate TSH Cancelled 0.70 Urine Color Urine Appearance Urine pH Ur Specific [place] Urine Protein Urine Glucose (UA) Urine Ketones Urine Blood Urine Nitrite Ur Leukocyte Esterase Urine RBC Urine WBC Ur Squamous Epith Cells Urine Bacteria Urine Opiates Screen Urine Fentanyl Screen Ur Barbiturates Screen Valproic Acid Ur Phencyclidine Scrn Ur Amphetamines Screen U Benzodiazepines Scrn Urine Cocaine Screen U Marijuana (THC) Screen Ethyl Alcohol Rheumatoid Factor MARLEN Screen MARLEN Titer MARLEN Titer 2 MARLEN Titer 3 MARLEN Pattern MARLEN Pattern 2 MARLEN Pattern 3 Lyme Progressive Test COVID-19 (URI) COVID-19 Clin Com Influenza Type A (PCR) Influenza Type B (PCR) RSV RNA Qual (PCR) SARS-CoV-2 RNA (RT-PCR) 09/09/21 09/09/21 09/09/21 09:11 09:11 09:11 WBC 4.7 L RBC 4.22 L Hgb 12.7 L Hct 38.3 L MCV 90.8 MCH 30.1 MCHC 33.2 RDW 12.9 Plt Count 260 MPV 9.5 Immature Gran % (Auto) 0.4 Neut % (Auto) 62.9 Lymph % (Auto) 18.9 L [place] % (Auto) 9.9 Eos % (Auto) 7.5 H Baso % (Auto) 0.4 Lymph # (Auto) 0.9 L [place] # (Auto) 0.5 Eos # (Auto) 0.4 Baso # (Auto) 0.0 Abs Immat Gran (auto) 0.02 Absolute Neuts (auto) 2.9 Absolute Nucleated RBC 0.000 Nucleated RBC % (auto) 0.0 ESR 17 H Sodium 142 Potassium 4.5 Chloride 109 H Carbon Dioxide 27 Anion Gap 11 L BUN 19 H Creatinine 1.80 H Estim Creat Clear Calc 66.4 Estimated GFR 41 Random Glucose 92 Fasting Glucose Estimat Average Glucose Hemoglobin A1c % Calcium 9.3 Magnesium Iron TIBC % Saturation Unsat Iron Binding Total Bilirubin 0.6 Direct Bilirubin AST 26 ALT 35 Alkaline Phosphatase 50 Ammonia Lactate Dehydrogenase Total Creatine Kinase Total Protein 6.5 Albumin 3.9 Triglycerides Cholesterol LDL Cholesterol, Calc HDL Cholesterol Vitamin B12 Folate TSH Urine Color Urine Appearance Urine pH Ur Specific [place] Urine Protein Urine Glucose (UA) Urine Ketones Urine Blood Urine Nitrite Ur Leukocyte Esterase Urine RBC Urine WBC Ur Squamous Epith Cells Urine Bacteria Urine Opiates Screen Urine Fentanyl Screen Ur Barbiturates Screen Valproic Acid Ur Phencyclidine Scrn Ur Amphetamines Screen U Benzodiazepines Scrn Urine Cocaine Screen U Marijuana (THC) Screen Ethyl Alcohol Rheumatoid Factor MARLEN Screen MARLEN Titer MARLEN Titer 2 MARLEN Titer 3 MARLEN Pattern MARLEN Pattern 2 MARLEN Pattern 3 Lyme Progressive Test COVID-19 (URI) COVID-19 Clin Com Influenza Type A (PCR) Influenza Type B (PCR) RSV RNA Qual (PCR) SARS-CoV-2 RNA (RT-PCR) 09/09/21 09/09/21 09/09/21 09:11 09:11 09:11 WBC RBC Hgb Hct MCV MCH MCHC RDW Plt Count MPV Immature Gran % (Auto) Neut % (Auto) Lymph % (Auto) [place] % (Auto) Eos % (Auto) Baso % (Auto) Lymph # (Auto) [place] # (Auto) Eos # (Auto) Baso # (Auto) Abs Immat Gran (auto) Absolute Neuts (auto) Absolute Nucleated RBC Nucleated RBC % (auto) ESR Sodium Potassium Chloride Carbon Dioxide Anion Gap BUN Creatinine Estim Creat Clear Calc Estimated GFR Random Glucose Fasting Glucose Estimat Average Glucose Hemoglobin A1c % Calcium Magnesium Iron TIBC % Saturation Unsat Iron Binding Total Bilirubin Direct Bilirubin AST ALT Alkaline Phosphatase Ammonia Lactate Dehydrogenase Total Creatine Kinase Total Protein Albumin Triglycerides Cholesterol LDL Cholesterol, Calc HDL Cholesterol Vitamin B12 Folate TSH Urine Color Urine Appearance Urine pH Ur Specific [place] Urine Protein Urine Glucose (UA) Urine Ketones Urine Blood Urine Nitrite Ur Leukocyte Esterase Urine RBC Urine WBC Ur Squamous Epith Cells Urine Bacteria Urine Opiates Screen Urine Fentanyl Screen Ur Barbiturates Screen Valproic Acid Ur Phencyclidine Scrn Ur Amphetamines Screen U Benzodiazepines Scrn Urine Cocaine Screen U Marijuana (THC) Screen Ethyl Alcohol Rheumatoid Factor < 15.0 MARLEN Screen NEGATIVE MARLEN Titer TNP MARLEN Titer 2 TNP MARLEN Titer 3 TNP MARLEN Pattern TNP MARLEN Pattern 2 TNP MARLEN Pattern 3 TNP Lyme Progressive Test 1.46 H COVID-19 (URI) COVID-19 Clin Com Influenza Type A (PCR) Influenza Type B (PCR) RSV RNA Qual (PCR) SARS-CoV-2 RNA (RT-PCR) 09/09/21 09/10/21 09:11 08:41 WBC RBC Hgb Hct MCV MCH MCHC RDW Plt Count MPV Immature Gran % (Auto) Neut % (Auto) Lymph % (Auto) [place] % (Auto) Eos % (Auto) Baso % (Auto) Lymph # (Auto) [place] # (Auto) Eos # (Auto) Baso # (Auto) Abs Immat Gran (auto) Absolute Neuts (auto) Absolute Nucleated RBC Nucleated RBC % (auto) ESR Sodium Potassium Chloride Carbon Dioxide Anion Gap BUN Creatinine Estim Creat Clear Calc Estimated GFR Random Glucose Fasting Glucose Estimat Average Glucose 97 Hemoglobin A1c % 5.0 Calcium Magnesium Iron TIBC % Saturation Unsat Iron Binding Total Bilirubin Direct Bilirubin AST ALT Alkaline Phosphatase Ammonia 19 Lactate Dehydrogenase Total Creatine Kinase Total Protein Albumin Triglycerides Cholesterol LDL Cholesterol, Calc HDL Cholesterol Vitamin B12 Folate TSH Urine Color Urine Appearance Urine pH Ur Specific [place] Urine Protein Urine Glucose (UA) Urine Ketones Urine Blood Urine Nitrite Ur Leukocyte Esterase Urine RBC Urine WBC Ur Squamous Epith Cells Urine Bacteria Urine Opiates Screen Urine Fentanyl Screen Ur Barbiturates Screen Valproic Acid Ur Phencyclidine Scrn Ur Amphetamines Screen U Benzodiazepines Scrn Urine Cocaine Screen U Marijuana (THC) Screen Ethyl Alcohol Rheumatoid Factor MARLEN Screen MARLEN Titer MARLEN Titer 2 MARLEN Titer 3 MARLEN Pattern AMRLEN Pattern 2 MARLEN Pattern 3 Lyme Progressive Test COVID-19 (URI) COVID-19 Clin Com Influenza Type A (PCR) Influenza Type B (PCR) RSV RNA Qual (PCR) SARS-CoV-2 RNA (RT-PCR) Airway Mallampati Class: II Neck ROM: Full Loose/Missing/Broken Teeth: No Heart: RRR Lungs: CTA Assessment and Plan Assessment Anesthesia Assessment: Anesthesia Plan Discussed and Chart Reviewed Final Anesthetic Review Family History of Problems with Anesthesia: No History of Problems with Anesthesia: No NPO: Yes ASA Class: II Final Preanesthetic Review: Consent Obtained/Reviewed and Anes Risks/Benef Reviewed Patient Risk: Low Procedure Risk: Low Anesthetic Plan Anesthetic Plan: GA Disposition: Standard PACU
--- NOTE | 2021-09-13 07:07 | MHC.SHP ---
Pre-Procedural Eval Section A Date of Service: 09/13/21 The patient is an INPATIENT: Yes Changes since office visit: No Cold of Flu in the past 2 weeks, No New Medical Problems, No Changes in Medication and No Patient answered all questions The History & Physical has been completed within 30 days and I have reviewed it.: Yes Section B Chief Complaint: joleen Allergies: Allergies Allergy/AdvReac Type Severity Reaction Status Date / Time haloperidol [From Haldol] Allergy Unknown Verified 07/22/20 03:38 Plan I have reviewed the history and physical and performed a pertinent physical examination on my patient. No changes have occurred unless specified.
--- NOTE | 2021-09-13 07:07 | HO.ECTPROC ---
ECT Procedure Note Diagnosis/Treatment Date of Service: 09/13/21 Diagnosis: Bipolar disorder Previous ECT Date: 09/11/21 Current Treatment Number: 10 Treatment: Series Interval Clinical Notes: The patient is less aggressive but he reamains psychotic, better since last time I saw him. ECT Settings Device: THYMATRON DGx Electrode Placement: Bitemporal Program/Pulse Width: 0.50 Energy Percent: 100 Seizure Duration By EEG (in seconds): 33 By Motor Observation (in seconds): 24 Medications Administration General Anesthetic: Etomidate (14) Muscle Relaxant: Rocuronium (50 with reversion) Ancillary Medications Analgesics: Torodol - Pre ECT Anti-emetics: Zofran - Pre ECT Airway Management Airway Management: Bag Mask Ventilation Treatment Recommendations No Changes Recommended: No change
[2021-09-13] MEDS: Nystatin Oral Susp 500,000 UNIT/5 ML ORAL.SUSP 400000 UNIT BUCCAL ×4 (09:12→22:58)
[2021-09-13] MEDS: Bisoprolol Fumarate 5 MG TABLET PO (09:13)
[2021-09-13] MEDS: Multivitamin TABLET 1 TAB PO (09:13)
[2021-09-13] MEDS: amLODIPine Besylate 10 MG TABLET PO (09:13)
[2021-09-13] MEDS: clonazePAM 1 MG TABLET PO ×2 (09:13→22:57)
[2021-09-13 11:22] LABS: 18 KD (IgG) Band NON-REACTIVE; 23 KD (IgG) Band REACTIVE; 23 KD (IgM) Band NON-REACTIVE; 28 KD (IgG) Band REACTIVE; 30 KD (IgG) Band REACTIVE; 39 KD (IgM) Band NON-REACTIVE; 41 KD (IgM) Band NON-REACTIVE; 45 KD (IgG) Band REACTIVE; 58 KD (IgG) Band NON-REACTIVE; 66 KD (IgG) Band REACTIVE; 93 KD (IgG) Band NON-REACTIVE; Lyme IgG Blot Interp POSITIVE (NEGATIVE); Lyme IgM Blot Interp NEGATIVE (NEGATIVE)
[2021-09-13 11:23] LABS: Lyme Abs Screen POSITIVE
[2021-09-13 14:49] LABS: Creatinine Urine 78.22 mg/dL; Protein/Creatinine Ratio, Ur 0.15 (<0.2); Total Protein Urine Random 12 mg/dL (<12)
[2021-09-13] MEDS: QUEtiapine Fumarate 100 MG TABLET PO (16:55)
--- NOTE | 2021-09-13 22:31 | P.PNPSI_ITS ---
Subjective Subjective Date of Service: 09/13/21 Reason For Visit: joleen Subjective Notes: Conditional Voluntary Healthcare Proxy: Yes Interim History: see ect note pt has been graduallymore organized able to converse for periods but becomes pressured disorganized tolerating clozapine Mental Status Exam Mental Status Exam Narrative: r Patient Appearance: Disheveled Patient Orientation: Person and Situation Level of Consciousness: Awake Patient Behavior: Restless Mood Description: Anxious, Labile and Apprehensive Affect Description: Labile and Expansive Hallucinations: None Thought Process: Racing, Distracted and Rumination Thought Content: positive for Disorganized, negative for Suicidal Ideation or negative for Homicidal Ideation Abnormal Motor Activity Signs and Symptoms: Agitation Judgement: Fair Diagnostics Vital Signs (24Hr): Vital Signs - 24 hr 09/13/21 06:27 09/13/21 06:28 09/13/21 06:59 Temperature 97 F 97 F 97.9 F Pulse Rate 88 88 86 Respiratory Rate 16 16 14 Blood Pressure 111/66 111/66 122/79 Pulse Oximetry 95 95 97 09/13/21 07:25 09/13/21 07:30 09/13/21 07:35 Temperature 98.7 F Pulse Rate 88 81 82 Respiratory Rate 16 15 15 Blood Pressure 132/58 L 126/84 124/82 Pulse Oximetry 97 98 98 09/13/21 07:40 09/13/21 07:55 09/13/21 08:10 Temperature Pulse Rate 84 80 80 Respiratory Rate 16 17 15 Blood Pressure 123/82 124/82 117/71 Pulse Oximetry 98 97 97 09/13/21 08:25 09/13/21 08:40 09/13/21 08:55 Temperature 98.0 F Pulse Rate 79 81 88 Respiratory Rate 18 17 18 Blood Pressure 111/71 124/82 120/78 Pulse Oximetry 97 96 96 09/13/21 09:22 Temperature 97.1 F Pulse Rate 97 Respiratory Rate 18 Blood Pressure 115/76 Pulse Oximetry 93 BMI result Body Mass Index 28.5 Labs Results: 09/09/21 09:11 09/09/21 09:11 Labs: Laboratory Results - last 48 hr 09/09/21 09/09/21 09/13/21 09:11 09:11 14:12 U Random Total Protein 12 Urine Creatinine 78.22 Urine Microalbumin 47.0 Microalb/Creat Ratio 60.0 Protein/Creatinin Ratio 0.15 MARLEN Titer TNP MARLEN Titer 2 TNP MARLEN Titer 3 TNP MARLEN Pattern TNP MARLEN Pattern 2 TNP MARLEN Pattern 3 TNP Lyme Screen IgG & IgM POSITIVE Lyme IgG 18 kDa Band NON-REACTIVE Lyme IgG 23 kDa Band REACTIVE A Lyme IgG 28 kDa Band REACTIVE A Lyme IgG 30 kDa Band REACTIVE A Lyme IgG 45 kDa Band REACTIVE A Lyme IgG 58 kDa Band NON-REACTIVE Lyme IgG 66 kDa Band REACTIVE A Lyme IgG 93 kDa Band NON-REACTIVE Lyme IgG Ab (Immblot) POSITIVE A Lyme IgM 23 kDa Band NON-REACTIVE Lyme IgM 39 kDa Band NON-REACTIVE Lyme IgM 41 kDa Band NON-REACTIVE Lyme IgM Interpretaton NEGATIVE Imaging Radiology Impressions: ITS Impressions Chest X-Ray 08/26/21 14:28 IMPRESSION: Low lung volume and nonspecific subtle bibasilar airspace disease, may represent hypoventilatory, atelectatic changes versus subtle infiltrate or combination thereof. No evidence of any dense airspace pneumonia. Medications Medications Current Medications Acetaminophen (Acetaminophen 325 Mg Tablet) 975 mg PO QID PRN PRN Reason: Mild Pain (Scale Score 1-4) Last Admin: 09/10/21 00:06 Dose: 975 mg Documented by: Al Hydroxide/Mg Hydroxide (Magnesium Hydrox/Alum Hydrox 30 Ml Oral.Susp) 30 ml PO Q6H PRN PRN Reason: Heartburn/Nausea Amlodipine Besylate (Amlodipine Besylate 10 Mg Tablet) 10 mg PO DAILY [facility]; Protocol Last Admin: 09/13/21 09:13 Dose: 10 mg Documented by: Aripiprazole (Aripiprazole Er 400 Mg Suser.Syr) 400 mg IM Q28D [facility] Last Admin: 08/20/21 14:09 Dose: 400 mg Documented by: Bisoprolol Fumarate (Bisoprolol Fumarate 5 Mg Tablet) 5 mg PO DAILY [facility] Last Admin: 09/13/21 09:13 Dose: 5 mg Documented by: Clonazepam (Clonazepam 1 Mg Tablet) 1 mg PO BID [facility] Last Admin: 09/13/21 09:13 Dose: 1 mg Documented by: Clozapine (Clozapine 25 Mg Tablet) 50 mg PO BEDTIME [facility] Loperamide HCl (Loperamide Hcl 2 Mg Capsule) 2 mg PO Q4H PRN PRN Reason: Diarrhea Last Admin: 08/27/21 12:31 Dose: 2 mg Documented by: Magnesium Hydroxide (Milk Of Magnesia 30 Ml Oral.Susp) 30 ml PO DAILY PRN PRN Reason: Constipation Multivitamins/Vitamin C (Multivitamin Tablet) 1 tab PO DAILY [facility] Last Admin: 09/13/21 09:13 Dose: 1 tab Documented by: Nystatin (Nystatin Oral Susp 500,000 Unit/5 Ml Oral.Susp) 400,000 unit BUCCAL QID [facility]; Protocol Last Admin: 09/13/21 16:55 Dose: 400,000 unit Documented by: Olanzapine (Olanzapine 10 Mg Tablet) 10 mg PO DAILY [facility] Quetiapine Fumarate (Quetiapine Fumarate 100 Mg Tablet) 100 mg PO Q4H PRN PRN Reason: Psychosis Last Admin: 09/13/21 16:55 Dose: 100 mg Documented by: Allergies Allergies Allergy/AdvReac Type Severity Reaction Status Date / Time haloperidol [From Haldol] Allergy Unknown Verified 07/22/20 03:38 Assessment & Plan Assessment & Plan (1) Hypertension: Status: Acute Code(s): I10 - Essential (primary) hypertension (2) Bipolar affective disorder, mixed, severe, with psychotic behavior: Status: Acute Code(s): F31.64 - Bipolar disorder, current episode mixed, severe, with psychotic features Assessment and Plan: Renal consult reviewed. Patient hopefully appears to be cycling down perhaps from his joleen continue ECT Clozaril started remains on two-to-one for present current note 09/13/21 cont ect clozapine 50 hs taper olanzapine Plan Hypertension: Low sodium diet < 2G/day bp appears normotensive at time of exam. Would monitor for now. Slightly tachycardic in setting of agitation. Please add: Renal panel UA, MACR, UPCR CBC I spent minutes with the patient and/or on the patient floor today, greater than?50% of which was spent counseling/coordinating care. Reason for contiued inpatient stay Substantial Risk for: harm to others, rapid decompensation and med/psych decompensation
[2021-09-13] MEDS: cloZAPine 25 MG TABLET 50 MG PO (22:57)
[2021-09-14] MEDS: Multivitamin TABLET 1 TAB PO (08:05)
[2021-09-14] MEDS: amLODIPine Besylate 10 MG TABLET PO (08:05)
[2021-09-14] MEDS: Bisoprolol Fumarate 5 MG TABLET PO (08:05)
[2021-09-14] MEDS: OLANZapine 10 MG TABLET PO (08:05)
[2021-09-14] MEDS: Nystatin Oral Susp 500,000 UNIT/5 ML ORAL.SUSP 400000 UNIT BUCCAL ×4 (08:05→22:08)
[2021-09-14] MEDS: clonazePAM 1 MG TABLET PO ×2 (08:05→22:08)
[2021-09-14 08:23] VITALS: BP 113/73; PULSE 84; TEMP 36.7; O2SAT 97
--- NOTE | 2021-09-14 12:38 | P.PNPSI_ITS ---
Subjective Subjective Date of Service: 09/14/21 Reason For Visit: joleen Interim History: Patient seen and reviewed. Per RN, his presentation has improved with the EDT treatments. He had been on 2:1 obs and RN and team think he can be maintained on 1:1. He has not been as destructive. His thought process continues disorganized and loose. His mind is racing and has FOI and speech is pressured and difficult to interrupt. He says he talked to his this morning. Medication Compliance: Yes Side effects from medications: No Review of Systems Acute medical concerns: No Review of Systems Review of Systems Except for HPI Yes all other systems are reviewed and are negative and Unobtainable due to men felicity status Constitutional: Reports as per HPI Reports behavioral changes, Reports confusion and Reports memory loss Psychiatric: Reports abnormal sleep pattern, Reports anxiety, Reports behavioral changes, Reports change in appetite, Reports confusion, Reports difficulty concentrating, Reports auditory hallucinations, Reports irritability, Reports an hedonia, Reports memory loss, Reports mood swings, Reports paranoia, Reports visual hallucinations and Reports hallucinations Mental Status Exam Mental Status Exam Patient Appearance: Disheveled Patient Orientation: Person and Situation Level of Consciousness: Awake and Restless Patient Behavior: Talkative, Hyperactive, Restless, Invasion - Personal Space and Good Eye Contact Mood Description: Anxious, Labile, Blunted and Apprehensive Affect Description: Constricted, Labile and Expansive Patient Cognition Impaired: Yes Ability to Follow Directions: Fair Speech Pattern: Slurred, Garbled, Rambling, Excessive and Pressured Memory Description: Episodic Impaired and Working Impaired Hallucinations: None Thought Process: Racing and Distracted Thought Content: positive for Flight of Ideas, positive for Circumstantial, positive for Perseveration and positive for Disorganized Abnormal Motor Activity Signs and Symptoms: Hyperactivity and Restlessness Judgement: Poor (improving) Diagnostics Vital Signs (24Hr): Vital Signs - 24 hr 09/14/21 08:23 Temperature 98.0 F Pulse Rate 84 Blood Pressure 113/73 Pulse Oximetry 97 BMI result Body Mass Index 28.5 Labs Results: 09/09/21 09:11 09/09/21 09:11 Labs: Laboratory Results - last 48 hr 09/09/21 09/09/21 09/13/21 09:11 09:11 14:12 U Random Total Protein 12 Urine Creatinine 78.22 Urine Microalbumin 47.0 Microalb/Creat Ratio 60.0 Protein/Creatinin Ratio 0.15 MARLEN Titer TNP MARLEN Titer 2 TNP MARLEN Titer 3 TNP MARLEN Pattern TNP MARLEN Pattern 2 TNP MARLEN Pattern 3 TNP Lyme Screen IgG & IgM POSITIVE Lyme IgG 18 kDa Band NON-REACTIVE Lyme IgG 23 kDa Band REACTIVE A Lyme IgG 28 kDa Band REACTIVE A Lyme IgG 30 kDa Band REACTIVE A Lyme IgG 45 kDa Band REACTIVE A Lyme IgG 58 kDa Band NON-REACTIVE Lyme IgG 66 kDa Band REACTIVE A Lyme IgG 93 kDa Band NON-REACTIVE Lyme IgG Ab (Immblot) POSITIVE A Lyme IgM 23 kDa Band NON-REACTIVE Lyme IgM 39 kDa Band NON-REACTIVE Lyme IgM 41 kDa Band NON-REACTIVE Lyme IgM Interpretaton NEGATIVE Imaging Radiology Impressions: ITS Impressions Chest X-Ray 08/26/21 14:28 IMPRESSION: Low lung volume and nonspecific subtle bibasilar airspace disease, may represent hypoventilatory, atelectatic changes versus subtle infiltrate or combination thereof. No evidence of any dense airspace pneumonia. Medications Medications Current Medications Acetaminophen (Acetaminophen 325 Mg Tablet) 975 mg PO QID PRN PRN Reason: Mild Pain (Scale Score 1-4) Last Admin: 09/10/21 00:06 Dose: 975 mg Documented by: Al Hydroxide/Mg Hydroxide (Magnesium Hydrox/Alum Hydrox 30 Ml Oral.Susp) 30 ml PO Q6H PRN PRN Reason: Heartburn/Nausea Amlodipine Besylate (Amlodipine Besylate 10 Mg Tablet) 10 mg PO DAILY [facility]; P rotocol Last Admin: 09/14/21 08:05 Dose: 10 mg Documented by: Aripiprazole (Aripiprazole Er 400 Mg Suser.Syr) 400 mg IM Q28D [facility] Last Admin: 08/20/21 14:09 Dose: 400 mg Documented by: Bisoprolol Fumarate (Bisoprolol Fumarate 5 Mg Tablet) 5 mg PO DAILY [facility] Last Admin: 09/14/21 08:05 Dose: 5 mg Documented by: Clonazepam (Clonazepam 1 Mg Tablet) 1 mg PO BID [facility] Last Admin: 09/14/21 08:05 Dose: 1 mg Documented by: Clozapine (Clozapine 25 Mg Tablet) 50 mg PO BEDTIME [facility] Last Admin: 09/13/21 22:57 Dose: 50 mg Documented by: Loperamide HCl (Loperamide Hcl 2 Mg Capsule) 2 mg PO Q4H PRN PRN Reason: Diarrhea Last Admin: 08/27/21 12:31 Dose: 2 mg Documented by: Magnesium Hydroxide (Milk Of Magnesia 30 Ml Oral.Susp) 30 ml PO DAILY PRN PRN Reason: Constipation Multivitamins/Vitamin C (Multivitamin Tablet) 1 tab PO DAILY [facility] Last Admin: 09/14/21 08:05 Dose: 1 tab Documented by: Nystatin (Nystatin Oral Susp 500,000 Unit/5 Ml Oral.Susp) 400,000 unit BUCCAL QID [facility]; Protocol Last Admin: 09/14/21 11:51 Dose: 400,000 unit Documented by: Olanzapine (Olanzapine 10 Mg Tablet) 10 mg PO DAILY [facility] Last Admin: 09/14/21 08:05 Dose: 10 mg Documented by: Quetiapine Fumarate (Quetiapine Fumarate 100 Mg Tablet) 100 mg PO Q4H PRN PRN Reason: Psychosis Last Admin: 09/13/21 16:55 Dose: 100 mg Documented by: Allergies Allergies Allergy/AdvReac Type Severity Reaction Status Date / Time haloperidol [From Haldol] Allergy Unknown Verified 07/22/20 03:38 Assessment & Plan Assessment & Plan (1) Hypertension: Status: Acute Code(s): I10 - Essential (primary) hypertension (2) Bipolar affective disorder, mixed, severe, with psychotic behavior: Status: Acute Code(s): F31.64 - Bipolar disorder, current episode mixed, severe, with psychotic feature s Assessment and Plan: Renal consult reviewed. Patient hopefully appears to be cycling down perhaps from his joleen continue ECT Clozaril started remains on two-to-one for present current note 09/13/21 cont ect clozapine 50 hs taper olanzapine 09/14: Continue current tx plan. ECT. Trial 1:1 instead of 2:1. Plan Hypertension: Low sodium diet < 2G/day bp appears normotensive at time of exam. Would monitor for now. Slightly tachycardic in setting of agitation. Please add: Renal panel UA, MACR, UPCR CBC I spent minutes with the patient and/or on the patient floor today, greater than?50% of which was spent counseling/coordinating care. Reason for contiued inpatient stay Substantial Risk for: harm to self, inability to function and rapid decompensation
[2021-09-14 14:06] VITALS: BP 115/83; PULSE 83; RESP 18
[2021-09-14 16:45] VITALS: BP 114/83; PULSE 87; TEMP 35.9
[2021-09-14] MEDS: cloZAPine 25 MG TABLET 50 MG PO (22:08)
[2021-09-15] MEDS: Multivitamin TABLET 1 TAB PO (08:10)
[2021-09-15] MEDS: clonazePAM 1 MG TABLET PO ×2 (08:10→21:42)
[2021-09-15] MEDS: Bisoprolol Fumarate 5 MG TABLET PO (08:10)
[2021-09-15] MEDS: Nystatin Oral Susp 500,000 UNIT/5 ML ORAL.SUSP 400000 UNIT BUCCAL ×4 (08:10→21:42)
[2021-09-15] MEDS: amLODIPine Besylate 10 MG TABLET PO (08:10)
[2021-09-15] MEDS: OLANZapine 10 MG TABLET PO (08:10)
[2021-09-15 08:20] VITALS: BP 124/82; PULSE 89; RESP 16; TEMP 36.3; O2SAT 97
--- NOTE | 2021-09-15 12:43 | HO.PSYCHPN ---
Subjective Subjective Date of Service: 09/15/21 Reason For Visit: joleen Interim History: Patient seen and reviewed. He continues to improve. He is on 1:1. Continues tangential and with flight of ideas but he is not destructive and redirectable. 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 Patient was somewhat slurred but appropriate. He reports his will be visiting. He has FOI and speech is pressured and somewhat difficult to interrupt. Says he comes in every three years to this kind of hospital to get a 'tune up'. Wants to start discussing discharge with his primary team. No SI. Review of Systems Review of Systems Except for HPI Yes all other systems are reviewed and are negative and Unobtainable due to mental status Constitutional: Reports as per HPI Reports behavioral changes, Reports confusion and Reports memory loss Psychiatric: Reports abnormal sleep pattern, Reports anxiety, Reports behavioral changes, Reports change in appetite, Reports confusion, Reports difficulty concentrating, Reports auditory hallucinations, Reports irritability, Reports anhedonia, Reports memory loss, Reports mood swings, Reports paranoia, Reports visual hallucinations and Reports hallucinations Mental Status Exam Mental Status Exam Narrative: r Patient Appearance: Disheveled Patient Orientation: Person and Situation Level of Consciousness: Awake and Restless Patient Behavior: Talkative, Hyperactive, Restless, Invasion - Personal Space and Good Eye Contact Mood Description: Anxious, Labile, Blunted and Apprehensive Affect Description: Constricted, Labile and Expansive Patient Cognition Impaired: Yes Ability to Follow Directions: Fair Speech Pattern: Slurred, Garbled, Rambling, Excessive and Pressured Memory Description: Episodic Impaired and Working Impaired Diagnostics Vital Signs (24Hr): Vital Signs - 24 hr 09/14/21 14:06 09/14/21 16:45 09/15/21 08:20 Temperature 96.6 F L 97.4 F Pulse Rate 83 87 89 Respiratory Rate 18 16 Blood Pressure 115/83 114/83 124/82 Pulse Oximetry 97 BMI result Body Mass Index 28.5 Labs Results: 09/09/21 09:11 09/09/21 09:11 Labs: Laboratory Results - last 48 hr 09/13/21 14:12 U Random Total Protein 12 Urine Creatinine 78.22 Urine Microalbumin 47.0 Microalb/Creat Ratio 60.0 Protein/Creatinin Ratio 0.15 Imaging Radiology Impressions: ITS Impressions Chest X-Ray 08/26/21 14:28 IMPRESSION: Low lung volume and nonspecific subtle bibasilar airspace disease, may represent hypoventilatory, atelectatic changes versus subtle infiltrate or combination thereof. No evidence of any dense airspace pneumonia. Medications Medications Current Medications Acetaminophen (Acetaminophen 325 Mg Tablet) 975 mg PO QID PRN PRN Reason: Mild Pain (Scale Score 1-4) Last Admin: 09/10/21 00:06 Dose: 975 mg Documented by: Al Hydroxide/Mg Hydroxide (Magnesium Hydrox/Alum Hydrox 30 Ml Oral.Susp) 30 ml PO Q6H PRN PRN Reason: Heartburn/Nausea Amlodipine Besylate (Amlodipine Besylate 10 Mg Tablet) 10 mg PO DAILY [facility]; Protocol Last Admin: 09/15/21 08:10 Dose: 10 mg Documented by: Aripiprazole (Aripiprazole Er 400 Mg Suser.Syr) 400 mg IM Q28D [facility] Last Admin: 08/20/21 14:09 Dose: 400 mg Documented by: Bisoprolol Fumarate (Bisoprolol Fumarate 5 Mg Tablet) 5 mg PO DAILY [facility] Last Admin: 09/15/21 08:10 Dose: 5 mg Documented by: Clonazepam (Clonazepam 1 Mg Tablet) 1 mg PO BID [facility] Last Admin: 09/15/21 08:10 Dose: 1 mg Documented by: Clozapine (Clozapine 25 Mg Tablet) 50 mg PO BEDTIME [facility] Last Admin: 09/14/21 22:08 Dose: 50 mg Documented by: Loperamide HCl (Loperamide Hcl 2 Mg Capsule) 2 mg PO Q4H PRN PRN Reason: Diarrhea Last Admin: 08/27/21 12:31 Dose: 2 mg Documented by: Magnesium Hydroxide (Milk Of Magnesia 30 Ml Oral.Susp) 30 ml PO DAILY PRN PRN Reason: Constipation Multivitamins/Vitamin C (Multivitamin Tablet) 1 tab PO DAILY [facility] Last Admin: 09/15/21 08:10 Dose: 1 tab Documented by: Nystatin (Nystatin Oral Susp 500,000 Unit/5 Ml Oral.Susp) 400,000 unit BUCCAL QID [facility]; Protocol Last Admin: 09/15/21 12:08 Dose: 400,000 unit Documented by: Olanzapine (Olanzapine 10 Mg Tablet) 10 mg PO DAILY [facility] Last Admin: 09/15/21 08:10 Dose: 10 mg Documented by: Quetiapine Fumarate (Quetiapine Fumarate 100 Mg Tablet) 100 mg PO Q4H PRN PRN Reason: Psychosis Last Admin: 09/13/21 16:55 Dose: 100 mg Documented by: Allergies Allergies Allergy/AdvReac Type Severity Reaction Status Date / Time haloperidol [From Haldol] Allergy Unknown Verified 07/22/20 03:38 Assessment & Plan Assessment & Plan (1) Hypertension: Status: Acute Code(s): I10 - Essential (primary) hypertension (2) Bipolar affective disorder, mixed, severe, with psychotic behavior: Status: Acute Code(s): F31.64 - Bipolar disorder, current episode mixed, severe, with psychotic features Assessment and Plan: Renal consult reviewed. Patient hopefully appears to be cycling down perhaps from his joleen continue ECT Clozaril started remains on two-to-one for present current note 09/13/21 cont ect clozapine 50 hs taper olanzapine 09/14: Continue current tx plan. ECT. Trial 1:1 instead of 2:1. 09/15: Continue current tx plan. ECT. 1:1. Plan Hypertension: Low sodium diet < 2G/day bp appears normotensive at time of exam. Would monitor for now. Slightly tachycardic in setting of agitation. Please add: Renal panel UA, MACR, UPCR CBC I spent minutes with the patient and/or on the patient floor today, greater than?50% of which was spent counseling/coordinating care. Reason for contiued inpatient stay Substantial Risk for: inability to function and rapid decompensation
[2021-09-15] MEDS: Milk of Magnesia 30 ML ORAL.SUSP PO (13:00)
[2021-09-15 20:35] VITALS: BP 118/66; PULSE 92; TEMP 36.1
[2021-09-15] MEDS: cloZAPine 25 MG TABLET 50 MG PO (21:43)
[2021-09-16] MEDS: Milk of Magnesia 30 ML ORAL.SUSP PO (02:48)
[2021-09-16 09:10] LABS: Neut%MD 63.9 %; Neutrophils Absolute Auto 5.1 x10*3/uL (2.0-8.3)
[2021-09-16] MEDS: amLODIPine Besylate 10 MG TABLET PO (09:58)
[2021-09-16] MEDS: clonazePAM 1 MG TABLET PO ×2 (09:58→21:24)
[2021-09-16] MEDS: Multivitamin TABLET 1 TAB PO (09:58)
[2021-09-16] MEDS: Bisoprolol Fumarate 5 MG TABLET PO (09:58)
[2021-09-16] MEDS: OLANZapine 10 MG TABLET PO (09:58)
[2021-09-16 10:00] VITALS: BP 143/75; PULSE 91; RESP 18; TEMP 36.4
[2021-09-16] MEDS: Nystatin Oral Susp 500,000 UNIT/5 ML ORAL.SUSP 400000 UNIT BUCCAL ×4 (10:01→21:25)
--- NOTE | 2021-09-16 13:00 | P.PNPSI_ITS ---
Subjective Subjective Date of Service: 09/16/21 Reason For Visit: joleen Interim History: Patient seen and reviewed. He continues to improve. He is on 1:1. More linear. Reports he is feeling depressed now that he realizes he has missed so much time from work. He reports he is looking forward to implement a plan when he leaves here. We discussed ECT. Discussed maintenance. (However, not clear if he is retaining all the information yet.) He has been under behavioral control. 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 Patient was somewhat slurred but appropriate. Flight of ideas continue. Wants to start discussing discharge with his primary team. No SI. Review of Systems Review of Systems Except for HPI Yes all other systems are reviewed and are negative and Unobtainable due to mental status Constitutional: Reports as per HPI Reports behavioral changes, Reports confusion and Reports memory loss Psychiatric: Reports abnormal sleep pattern, Reports anxiety, Reports behavioral changes, Reports change in appetite, Reports confusion, Reports difficulty concentrating, Reports auditory hallucinations, Reports irritability, Reports anhedonia, Reports memory loss, Reports mood swings, Reports paranoia, Reports visual hallucinations and Reports hallucinations Mental Status Exam Mental Status Exam Narrative: r Patient Appearance: Disheveled Patient Orientation: Person and Situation Level of Consciousness: Awake and Restless Patient Behavior: Talkative, Hyperactive, Restless, Invasion - Personal Space and Good Eye Contact Mood Description: Depressed, Anxious, Labile, Blunted and Apprehensive Affect Description: Constricted, Depressed, Labile and Expansive Patient Cognition Impaired: Yes Ability to Follow Directions: Fair Speech Pattern: Slurred, Garbled, Rambling, Excessive and Pressured Memory Description: Episodic Impaired and Working Impaired Diagnostics Vital Signs (24Hr): Vital Signs - 24 hr 09/15/21 20:35 09/16/21 10:00 Temperature 96.9 F 97.6 F Pulse Rate 92 91 Respiratory Rate 18 Blood Pressure 118/66 143/75 H BMI result Body Mass Index 28.5 Labs Results: 09/09/21 09:11 09/09/21 09:11 Labs: Laboratory Results - last 48 hr 09/16/21 08:35 Absolute Neuts (auto) 5.1 Imaging Radiology Impressions: ITS Impressions Chest X-Ray 08/26/21 14:28 IMPRESSION: Low lung volume and nonspecific subtle bibasilar airspace disease, may represent hypoventilatory, atelectatic changes versus subtle infiltrate or combination thereof. No evidence of any dense airspace pneumonia. Medications Medications Current Medications Acetaminophen (Acetaminophen 325 Mg Tablet) 975 mg PO QID PRN PRN Reason: Mild Pain (Scale Score 1-4) Last Admin: 09/10/21 00:06 Dose: 975 mg Documented by: Al Hydroxide/Mg Hydroxide (Magnesium Hydrox/Alum Hydrox 30 Ml Oral.Susp) 30 ml PO Q6H PRN PRN Reason: Heartburn/Nausea Amlodipine Besylate (Amlodipine Besylate 10 Mg Tablet) 10 mg PO DAILY [facility]; Protocol Last Admin: 09/16/21 09:58 Dose: 10 mg Documented by: Aripiprazole (Aripiprazole Er 400 Mg Suser.Syr) 400 mg IM Q28D [facility] Last Admin: 08/20/21 14:09 Dose: 400 mg Documented by: Bisoprolol Fumarate (Bisoprolol Fumarate 5 Mg Tablet) 5 mg PO DAILY [facility] Last Admin: 09/16/21 09:58 Dose: 5 mg Documented by: Clonazepam (Clonazepam 1 Mg Tablet) 1 mg PO BID [facility] Last Admin: 09/16/21 09:58 Dose: 1 mg Documented by: Clozapine (Clozapine 25 Mg Tablet) 50 mg PO BEDTIME [facility] Last Admin: 09/15/21 21:43 Dose: 50 mg Documented by: Loperamide HCl (Loperamide Hcl 2 Mg Capsule) 2 mg PO Q4H PRN PRN Reason: Diarrhea Last Admin: 08/27/21 12:31 Dose: 2 mg Documented by: Magnesium Hydroxide (Milk Of Magnesia 30 Ml Oral.Susp) 30 ml PO DAILY PRN PRN Reason: Constipation Last Admin: 09/16/21 02:48 Dose: 30 ml Documented by: Multivitamins/Vitamin C (Multivitamin Tablet) 1 tab PO DAILY [facility] Last Admin: 09/16/21 09:58 Dose: 1 tab Documented by: Nystatin (Nystatin Oral Susp 500,000 Unit/5 Ml Oral.Susp) 400,000 unit BUCCAL QID [facility]; Protocol Last Admin: 09/16/21 10:01 Dose: 400,000 unit Documented by: Olanzapine (Olanzapine 10 Mg Tablet) 10 mg PO DAILY [facility] Last Admin: 09/16/21 09:58 Dose: 10 mg Documented by: Quetiapine Fumarate (Quetiapine Fumarate 100 Mg Tablet) 100 mg PO Q4H PRN PRN Reason: Psychosis Last Admin: 09/13/21 16:55 Dose: 100 mg Documented by: Allergies Allergies Allergy/AdvReac Type Severity Reaction Status Date / Time haloperidol [From Haldol] Allergy Unknown Verified 07/22/20 03:38 Assessment & Plan Assessment & Plan (1) Hypertension: Status: Acute Code(s): I10 - Essential (primary) hypertension (2) Bipolar affective disorder, mixed, severe, with psychotic behavior: Status: Acute Code(s): F31.64 - Bipolar disorder, current episode mixed, severe, with psychotic features Assessment and Plan: Renal consult reviewed. Patient hopefully appears to be cycling down perhaps from his joleen continue ECT Clozaril started remains on two-to-one for present current note 09/13/21 cont ect clozapine 50 hs taper olanzapine 09/14: Continue current tx plan. ECT. Trial 1:1 instead of 2:1. 09/15: Continue current tx plan. ECT. 1:. 09/16 Continue tx plan per primary team. 1:1. ECT. Plan Hypertension: Low sodium diet < 2G/day bp appears normotensive at time of exam. Would monitor for now. Slightly tachycardic in setting of agitation. Please add: Renal panel UA, MACR, UPCR CBC I spent minutes with the patient and/or on the patient floor today, greater than?50% of which was spent counseling/coordinating care. Reason for contiued inpatient stay Substantial Risk for: inability to function and rapid decompensation
[2021-09-16 14:53] VITALS: BP 95/59; PULSE 85; RESP 18; TEMP 37.5
[2021-09-16 14:54] VITALS: BP 95/59; PULSE 85; RESP 18; TEMP 37.5
[2021-09-16 16:00] VITALS: BP 133/84; PULSE 98; TEMP 36.4; O2SAT 98
[2021-09-16] MEDS: cloZAPine 25 MG TABLET 50 MG PO (21:25)
[2021-09-17] MEDS: clonazePAM 1 MG TABLET PO (08:15)
[2021-09-17] MEDS: amLODIPine Besylate 10 MG TABLET PO (08:15)
[2021-09-17] MEDS: Multivitamin TABLET 1 TAB PO (08:15)
[2021-09-17] MEDS: OLANZapine 10 MG TABLET PO (08:15)
[2021-09-17] MEDS: Nystatin Oral Susp 500,000 UNIT/5 ML ORAL.SUSP 400000 UNIT BUCCAL ×3 (08:16→21:38)
[2021-09-17] MEDS: Bisoprolol Fumarate 5 MG TABLET PO (08:16)
[2021-09-17 08:23] VITALS: BP 128/64; PULSE 99; RESP 16; TEMP 36.1; O2SAT 98
[2021-09-17] MEDS: ARIPiprazole ER 400 MG SUSER.SYR IM (11:13)
[2021-09-17 12:33] LABS: Appearance Urine HAZY; Color Urine YELLOW; Glucose Urine UA NEG (NEG); Leukocyte Esterase Urine NEG (NEG); Nitrite Urine NEG (NEG); Specific Gravity - Urine 1.015 (1.005-1.025); Urine Blood NEG (NEG); Urine Ketones NEG (NEG); Urine Protein TRACE MG/DL (NEG-TRACE)
[2021-09-17 13:05] LABS: Mucus Urine 1+ /LPF; RBC Urine 0 /HPF (0); WBC Urine 0 /HPF (0-4)
--- NOTE | 2021-09-17 16:48 | P.PNPSI_ITS ---
Subjective Subjective Date of Service: 09/17/21 Reason For Visit: joleen Subjective Notes: Conditional Voluntary Healthcare Proxy: Yes (Has invoked healthcare proxy) Guardianship: No Interim History: Patient seen extensively along with social work. Patient shows much decrease in mood lability appears to be cycling somewhat down. Remains somewhat pressured but more logical and goal directed but having difficulty taking in information and weighing it appropriately. Someone at impulsive wanting to leave having d ifficulty understanding how sick he has been he is certainly less grandiose actively psychotic. Difficulty with short-term memory clearly has come out of manic severely agitated delirium. Was able to discussed with him kidney dysfunction need for follow-up and need to avoid nonsteroidals and aspirin. Discussed use of clozapine particularly given history of tardive dyskinesia still unclear who patient psychiatric provider was prior to admission Medication Compliance: Yes Review of Systems No longer with thrush Mental Status Exam Mental Status Exam Narrative: r Patient Appearance: Unkempt Patient Orientation: Person, Place and Situation Level of Consciousness: Awake and Restless Patient Behavior: Talkative, Restless, Anxious, Distractible and Good Eye Contact Mood Description: Depressed, Anxious, Blunted and Apprehensive Affect Description: Constricted, Depressed, Labile and Apprehensive Patient Cognition Impaired: Yes Ability to Follow Directions: Fair Speech Pattern: Slurred, Rambling and Pressured Memory Description: Episodic Impaired and Working Impaired Thought Process: Racing, Distracted and Rumination Thought Content: positive for Perseveration, positive for Preoccupation, negative for Suicidal Ideation or negative for Homicidal Ideation Depressive Symptoms: Increased Anxiety Abnormal Motor Activity Signs and Symptoms: Restlessness Judgement: Fair Judgement and Insight: Difficulty understanding he remains ill having a difficult time tolerating more depressive and anxious feelings Diagnostics Vital Signs (24Hr): Vital Signs - 24 hr 09/17/21 08:23 Temperature 97.0 F Pulse Rate 99 Respiratory Rate 16 Blood Pressure 128/64 Pulse Oximetry 98 BMI result Body Mass Index 28.5 Labs Results: 09/18/21 12:19 09/09/21 09:11 Labs: Laboratory Results - last 48 hr 09/16/21 09/17/21 08:35 12:26 Absolute Neuts (auto) 5.1 Urine Color YELLOW Urine Appearance HAZY Urine pH 6.0 Ur Specific [place] 1.015 Urine Protein TRACE Urine Glucose (UA) NEG Urine Ketones NEG Urine Blood NEG Urine Nitrite NEG Ur Leukocyte Esterase NEG Urine RBC 0 Urine WBC 0 Ur Squamous Epith Cells NONE Urine Bacteria NONE Urine Mucus 1+ Imaging Radiology Impressions: ITS Impressions Chest X-Ray 08/26/21 14:28 IMPRESSION: Low lung volume and nonspecific subtle bibasilar airspace disease, may represent hypoventilatory, atelectatic changes versus subtle infiltrate or combination thereof. No evidence of any dense airspace pneumonia. Medications Medications Current Medications Acetaminophen (Acetaminophen 325 Mg Tablet) 975 mg PO QID PRN PRN Reason: Mild Pain (Scale Score 1-4) Last Admin: 09/10/21 00:06 Dose: 975 mg Documented by: Al Hydroxide/Mg Hydroxide (Magnesium Hydrox/Alum Hydrox 30 Ml Oral.Susp) 30 ml PO Q6H PRN PRN Reason: Heartburn/Nausea Amlodipine Besylate (Amlodipine Besylate 10 Mg Tablet) 10 mg PO DAILY [facility]; Protocol Last Admin: 09/17/21 08:15 Dose: 10 mg Documented by: Aripiprazole (Aripiprazole Er 400 Mg Suser.Syr) 400 mg IM Q28D [facility] Last Admin: 09/17/21 11:13 Dose: 400 mg Documented by: Bisoprolol Fumarate (Bisoprolol Fumarate 5 Mg Tablet) 5 mg PO DAILY [facility] Last Admin: 09/17/21 08:16 Dose: 5 mg Documented by: Clonazepam (Clonazepam 1 Mg Tablet) 1 mg PO BID [facility] Last Admin: 09/17/21 08:15 Dose: 1 mg Documented by: Clozapine (Clozapine 25 Mg Tablet) 75 mg PO BEDTIME [facility] Loperamide HCl (Loperamide Hcl 2 Mg Capsule) 2 mg PO Q4H PRN PRN Reason: Diarrhea Last Admin: 08/27/21 12:31 Dose: 2 mg Documented by: Magnesium Hydroxide (Milk Of Magnesia 30 Ml Oral.Susp) 30 ml PO DAILY PRN PRN Reason: Constipation Last Admin: 09/16/21 02:48 Dose: 30 ml Documented by: Multivitamins/Vitamin C (Multivitamin Tablet) 1 tab PO DAILY [facility] Last Admin: 09/17/21 08:15 Dose: 1 tab Documented by: Nystatin (Nystatin Oral Susp 500,000 Unit/5 Ml Oral.Susp) 400,000 unit BUCCAL QID [facility]; Protocol Last Admin: 09/17/21 15:01 Dose: Not Given Documented by: Quetiapine Fumarate (Quetiapine Fumarate 100 Mg Tablet) 100 mg PO Q4H PRN PRN Reason: Psychosis Last Admin: 09/13/21 16:55 Dose: 100 mg Documented by: Allergies Allergies Allergy/AdvReac Type Severity Reaction Status Date / Time haloperidol [From Haldol] Allergy Unknown Verified 07/22/20 03:38 Assessment & Plan Assessment & Plan (1) Hypertension: Status: Acute Code(s): I10 - Essential (primary) hypertension (2) Bipolar affective disorder, mixed, severe, with psychotic behavior: Status: Acute Code(s): F31.64 - Bipolar disorder, current episode mixed, severe, with psychotic features Assessment and Plan: Renal consult reviewed. Patient hopefully appears to be cycling down perhaps from his joleen continue ECT Clozaril started remains on two-to-one for present current note 09/13/21 cont ect clozapine 50 hs taper olanzapine 09/14: Continue current tx plan. ECT. Trial 1:1 instead of 2:1. 09/15: Continue current tx plan. ECT. 1:1. 09/16 Continue tx plan per primary team. 1:1. ECT. 09/17/2021 Patient seen in psychiatric follow-up. Patient anxious ruminating dysphoric having a hard time understanding need for treatment. Somewhat perseverative difficulty with short-term memory has been responding to ECT and clozapine. Increase clozapine to 100 mg at bedtime olanzapine discontinued continue Seroquel p.r.n. try and discuss with patient's family use of clozapine Abilify long-acting injectable was given Plan Hypertension: Low sodium diet < 2G/day bp appears normotensive at time of exam. Would monitor for now. Slightly tachycardic in setting of agitation. Please add: Renal panel UA, MACR, UPCR CBC I spent minutes with the patient and/or on the patient floor today, greater than?50% of which was spent counseling/coordinating care. Reason for contiued inpatient stay Substantial Risk for: inability to function and rapid decompensation
[2021-09-17 18:00] VITALS: BP 124/68; PULSE 86; RESP 20; TEMP 36.6; O2SAT 99
[2021-09-17] MEDS: cloZAPine 25 MG TABLET 75 MG PO (21:37)
[2021-09-18] VITALS (8 sets, daily range): BP systolic 105–143; BP diastolic 61–97; PULSE 84–110; RESP 16–22; TEMP 36.3–37.4; O2SAT 96–99
--- NOTE | 2021-09-18 06:56 | HO.ANESPROP2 ---
[facility] Active Problems Active Problems: All Active Problems (Updated 08/20/21 @ 17:39 by Frdey Caldera DO) Physical exam (Acute) Bipolar affective disorder, mixed, severe, with psychotic behavior (Acute) Bipolar affective, manic, full remis (Acute) Hypertension (Acute) Hyperlipidemia (Acute) Dyskinesia, tardive (Acute) Manic behavior (Acute) Rash (Acute) Past Medical History Medical History HTN (hypertension) Kidney problem Functional capacity: independent ambulation Family History Family history of problems with anesthesia: No Surgical History History of Problems with Anesthesia: No Social History Social History Household Members: Spouse Household Members Other:: Housing: House Do you presently have visiting nurse or other home services: No Unable to assess alcohol history related to: Unknown Patient Tobacco Use Status: Tobacco use Unknown Second Hand Smoke Exposure: No Use of substances other than those prescribed or required for medical reasons: Unknown Currently Displaying Signs/Symptoms of Drug Intoxication Withdrawal: No Any prior treatment program specific to substance use: No Advance Directives: No Advance Directives Information Provided: No Advance Directives on File: No Healthcare Proxy: Yes Guardian: No Do you have thoughts of harming others: None Do you have a plan to hurt others: No Plan Recently lost weight without trying: Unsure How much weight loss: Unsure service: No Sexual orientation: Straight/Heterosexual Meds Allergies Allergy/AdvReac Type Severity Reaction Status Date / Time haloperidol [From Haldol] Allergy Unknown Verified 07/22/20 03:38 Active Medications: Current Medications Acetaminophen (Acetaminophen 325 Mg Tablet) 975 mg PO QID PRN PRN Reason: Mild Pain (Scale Score 1-4) Last Admin: 09/10/21 00:06 Dose: 975 mg Documented by: Al Hydroxide/Mg Hydroxide (Magnesium Hydrox/Alum Hydrox 30 Ml Oral.Susp) 30 ml PO Q6H PRN PRN Reason: Heartburn/Nausea Amlodipine Besylate (Amlodipine Besylate 10 Mg Tablet) 10 mg PO DAILY [facility]; Protocol Last Admin: 09/17/21 08:15 Dose: 10 mg Documented by: Aripiprazole (Aripiprazole Er 400 Mg Suser.Syr) 400 mg IM Q28D [facility] Last Admin: 09/17/21 11:13 Dose: 400 mg Documented by: Bisoprolol Fumarate (Bisoprolol Fumarate 5 Mg Tablet) 5 mg PO DAILY [facility] Last Admin: 09/17/21 08:16 Dose: 5 mg Documented by: Clozapine (Clozapine 25 Mg Tablet) 75 mg PO BEDTIME [facility] Last Admin: 09/17/21 21:37 Dose: 75 mg Documented by: Loperamide HCl (Loperamide Hcl 2 Mg Capsule) 2 mg PO Q4H PRN PRN Reason: Diarrhea Last Admin: 08/27/21 12:31 Dose: 2 mg Documented by: Magnesium Hydroxide (Milk Of Magnesia 30 Ml Oral.Susp) 30 ml PO DAILY PRN PRN Reason: Constipation Last Admin: 09/16/21 02:48 Dose: 30 ml Documented by: Multivitamins/Vitamin C (Multivitamin Tablet) 1 tab PO DAILY [facility] Last Admin: 09/17/21 08:15 Dose: 1 tab Documented by: Nystatin (Nystatin Oral Susp 500,000 Unit/5 Ml Oral.Susp) 400,000 unit BUCCAL QID [facility]; Protocol Last Admin: 09/17/21 21:38 Dose: 400,000 unit Documented by: Quetiapine Fumarate (Quetiapine Fumarate 100 Mg Tablet) 100 mg PO Q4H PRN PRN Reason: Psychosis Last Admin: 09/13/21 16:55 Dose: 100 mg Documented by: Home Medications Medication Instructions Recorded Confirmed Last Taken Type acetaminophen 500 mg tablet 1,000 mg PO QID PRN 08/16/21 08/16/21 Unknown History (Tylenol Extra Strength) amlodipine 10 mg tablet 1 tab PO DAILY 08/16/21 08/16/21 Unknown History aripiprazole 400 mg intramuscular 400 mg IM QMONTH 08/16/21 08/16/21 Unknown History suspension,extended release (Abilify Maintena) bisoprolol 10 1 tab PO DAILY 08/16/21 08/16/21 Unknown History mg-hydrochlorothiazide 6.25 mg tablet multivitamin 1 tab PO DAILY 08/16/21 08/16/21 Unknown History vitamin B complex 1 tab PO DAILY 08/16/21 08/16/21 Unknown History Exam Exam Date and Time: September 18, 2021 0656 Height,Weight and Vital Signs: Height 6 ft 2 in Weight 101 kg Last Vital Signs Temp 97.3 F 09/18/21 06:50 Pulse 88 09/18/21 06:50 Resp 18 09/18/21 06:50 BP 117/78 09/18/21 06:50 Pulse Ox 97 09/18/21 06:50 Pertinent Lab Results Pertinent Lab Results: Laboratory Tests 08/16/21 08/16/21 08/16/21 16:05 16:42 16:42 WBC RBC Hgb Hct MCV MCH MCHC RDW Plt Count MPV Immature Gran % (Auto) Neut % (Auto) Lymph % (Auto) [place] % (Auto) Eos % (Auto) Baso % (Auto) Lymph # (Auto) [place] # (Auto) Eos # (Auto) Baso # (Auto) Abs Immat Gran (auto) Absolute Neuts (auto) Absolute Nucleated RBC Nucleated RBC % (auto) ESR Sodium Potassium Chloride Carbon Dioxide Anion Gap BUN Creatinine Estim Creat Clear Calc Estimated GFR Random Glucose Fasting Glucose Estimat Average Glucose Hemoglobin A1c % Calcium Magnesium Iron TIBC % Saturation Unsat Iron Binding Total Bilirubin Direct Bilirubin AST ALT Alkaline Phosphatase Ammonia Lactate Dehydrogenase Total Creatine Kinase Total Protein Albumin Triglycerides Cholesterol LDL Cholesterol, Calc HDL Cholesterol Vitamin B12 Folate TSH Urine Color YELLOW Urine Appearance CLEAR Urine pH 6.0 Ur Specific [place] 1.010 Urine Protein 2+ H Urine Glucose (UA) NEG Urine Ketones NEG Urine Blood 2+ H Urine Nitrite NEG Ur Leukocyte Esterase NEG Urine RBC 5-9 H Urine WBC 0 Ur Squamous Epith Cells NONE Urine Bacteria NONE Urine Mucus U Random Total Protein Urine Creatinine Urine Microalbumin Microalb/Creat Ratio Protein/Creatinin Ratio Urine Opiates Screen Not Detected Urine Fentanyl Screen Not Detected Ur Barbiturates Screen Not Detected Valproic Acid Ur Phencyclidine Scrn Not Detected Ur Amphetamines Screen Not Detected U Benzodiazepines Scrn Not Detected Urine Cocaine Screen Not Detected U Marijuana (THC) Screen Not Detected Ethyl Alcohol Rheumatoid Factor MARLEN Screen MARLEN Titer MARLEN Titer 2 MARLEN Titer 3 MARLEN Pattern MARLEN Pattern 2 MARLEN Pattern 3 Lyme Screen IgG & IgM Lyme Progressive Test Lyme IgG 18 kDa Band Lyme IgG 23 kDa Band Lyme IgG 28 kDa Band Lyme IgG 30 kDa Band Lyme IgG 45 kDa Band Lyme IgG 58 kDa Band Lyme IgG 66 kDa Band Lyme IgG 93 kDa Band Lyme IgG Ab (Immblot) Lyme IgM 23 kDa Band Lyme IgM 39 kDa Band Lyme IgM 41 kDa Band Lyme IgM Interpretaton COVID-19 (URI) Negative COVID-19 Clin Com See Note Influenza Type A (PCR) Influenza Type B (PCR) RSV RNA Qual (PCR) SARS-CoV-2 RNA (RT-PCR) 08/16/21 08/16/21 08/16/21 16:51 16:51 16:51 WBC 7.8 RBC 4.83 Hgb 14.8 Hct 42.1 MCV 87.2 MCH 30.6 MCHC 35.2 RDW 12.7 Plt Count 226 MPV 9.3 L Immature Gran % (Auto) 0.4 Neut % (Auto) 72.1 Lymph % (Auto) 15.1 L [place] % (Auto) 8.5 Eos % (Auto) 3.5 Baso % (Auto) 0.4 Lymph # (Auto) 1.2 [place] # (Auto) 0.7 Eos # (Auto) 0.3 Baso # (Auto) 0.0 Abs Immat Gran (auto) 0.03 Absolute Neuts (auto) 5.6 Absolute Nucleated RBC 0.000 Nucleated RBC % (auto) 0.0 ESR Sodium 138 Potassium 3.9 Chloride 102 Carbon Dioxide 24 Anion Gap 16 BUN 16 Creatinine 1.49 H Estim Creat Clear Calc 80.2 Estimated GFR 51 Random Glucose 117 H Fasting Glucose Estimat Average Glucose Hemoglobin A1c % Calcium 10.1 D Magnesium Iron TIBC % Saturation Unsat Iron Binding Total Bilirubin 0.7 Direct Bilirubin AST 47 H D ALT 63 H Alkaline Phosphatase 56 Ammonia Lactate Dehydrogenase Total Creatine Kinase Total Protein 8.2 H D Albumin 4.9 D Triglycerides Cholesterol LDL Cholesterol, Calc HDL Cholesterol Vitamin B12 Folate TSH Urine Color Urine Appearance Urine pH Ur Specific [place] Urine Protein Urine Glucose (UA) Urine Ketones Urine Blood Urine Nitrite Ur Leukocyte Esterase Urine RBC Urine WBC Ur Squamous Epith Cells Urine Bacteria Urine Mucus U Random Total Protein Urine Creatinine Urine Microalbumin Microalb/Creat Ratio Protein/Creatinin Ratio Urine Opiates Screen Urine Fentanyl Screen Ur Barbiturates Screen Valproic Acid Ur Phencyclidine Scrn Ur Amphetamines Screen U Benzodiazepines Scrn Urine Cocaine Screen U Marijuana (THC) Screen Ethyl Alcohol < 10 Rheumatoid Factor MARLEN Screen MARLEN Titer MARLEN Titer 2 MARLEN Titer 3 MARLEN Pattern MARLEN Pattern 2 MARLEN Pattern 3 Lyme Screen IgG & IgM Lyme Progressive Test Lyme IgG 18 kDa Band Lyme IgG 23 kDa Band Lyme IgG 28 kDa Band Lyme IgG 30 kDa Band Lyme IgG 45 kDa Band Lyme IgG 58 kDa Band Lyme IgG 66 kDa Band Lyme IgG 93 kDa Band Lyme IgG Ab (Immblot) Lyme IgM 23 kDa Band Lyme IgM 39 kDa Band Lyme IgM 41 kDa Band Lyme IgM Interpretaton COVID-19 (URI) COVID-19 Clin Com Influenza Type A (PCR) Influenza Type B (PCR) RSV RNA Qual (PCR) SARS-CoV-2 RNA (RT-PCR) 08/17/21 08/17/21 08/17/21 06:42 06:42 06:42 WBC RBC Hgb Hct MCV MCH MCHC RDW Plt Count MPV Immature Gran % (Auto) Neut % (Auto) Lymph % (Auto) [place] % (Auto) Eos % (Auto) Baso % (Auto) Lymph # (Auto) [place] # (Auto) Eos # (Auto) Baso # (Auto) Abs Immat Gran (auto) Absolute Neuts (auto) Absolute Nucleated RBC Nucleated RBC % (auto) ESR Sodium 138 Potassium 3.9 Chloride 102 Carbon Dioxide 24 Anion Gap 16 BUN 12 Creatinine 1.47 H Estim Creat Clear Calc 81.3 Estimated GFR 52 Random Glucose Fasting Glucose 112 H Estimat Average Glucose 97 Hemoglobin A1c % 5.0 Calcium 10.2 Magnesium Iron TIBC % Saturation Unsat Iron Binding Total Bilirubin 1.2 H Direct Bilirubin AST 48 H ALT 65 H Alkaline Phosphatase 56 Ammonia Lactate Dehydrogenase Total Creatine Kinase Total Protein 8.5 H Albumin 4.9 Triglycerides 133 Cholesterol 226 D LDL Cholesterol, Calc 152 HDL Cholesterol 48 D Vitamin B12 558 Folate > 20.0 TSH 1.87 Urine Color Urine Appearance Urine pH Ur Specific [place] Urine Protein Urine Glucose (UA) Urine Ketones Urine Blood Urine Nitrite Ur Leukocyte Esterase Urine RBC Urine WBC Ur Squamous Epith Cells Urine Bacteria Urine Mucus U Random Total Protein Urine Creatinine Urine Microalbumin Microalb/Creat Ratio Protein/Creatinin Ratio Urine Opiates Screen Urine Fentanyl Screen Ur Barbiturates Screen Valproic Acid Ur Phencyclidine Scrn Ur Amphetamines Screen U Benzodiazepines Scrn Urine Cocaine Screen U Marijuana (THC) Screen Ethyl Alcohol Rheumatoid Factor MARLEN Screen MARLEN Titer MARLEN Titer 2 MARLEN Titer 3 MARLEN Pattern MARLEN Pattern 2 MARLEN Pattern 3 Lyme Screen IgG & IgM Lyme Progressive Test Lyme IgG 18 kDa Band Lyme IgG 23 kDa Band Lyme IgG 28 kDa Band Lyme IgG 30 kDa Band Lyme IgG 45 kDa Band Lyme IgG 58 kDa Band Lyme IgG 66 kDa Band Lyme IgG 93 kDa Band Lyme IgG Ab (Immblot) Lyme IgM 23 kDa Band Lyme IgM 39 kDa Band Lyme IgM 41 kDa Band Lyme IgM Interpretaton COVID-19 (URI) COVID-19 Clin Com Influenza Type A (PCR) Influenza Type B (PCR) RSV RNA Qual (PCR) SARS-CoV-2 RNA (RT-PCR) 08/24/21 08/24/21 08/25/21 07:19 07:19 17:19 WBC 5.9 RBC 4.04 L Hgb 12.2 L Hct 35.1 L MCV 86.9 MCH 30.2 MCHC 34.8 RDW 12.6 Plt Count 189 MPV 9.2 L Immature Gran % (Auto) 0.3 Neut % (Auto) 68.7 Lymph % (Auto) 16.5 L [place] % (Auto) 10.8 Eos % (Auto) 3.5 Baso % (Auto) 0.2 Lymph # (Auto) 1.0 L [place] # (Auto) 0.6 Eos # (Auto) 0.2 Baso # (Auto) 0.0 Abs Immat Gran (auto) 0.02 Absolute Neuts (auto) 4.1 Absolute Nucleated RBC 0.000 Nucleated RBC % (auto) 0.0 ESR Sodium 141 141 Potassium 3.1 L D 3.0 L Chloride 105 102 Carbon Dioxide 24 27 Anion Gap 15 15 BUN 17 H 13 Creatinine 1.68 H 1.45 H Estim Creat Clear Calc 71.2 82.5 Estimated GFR 45 53 Random Glucose Fasting Glucose 90 Estimat Average Glucose Hemoglobin A1c % Calcium 9.1 D Magnesium Iron TIBC % Saturation Unsat Iron Binding Total Bilirubin 0.7 0.5 Direct Bilirubin 0.2 AST 120 H 119 H ALT 47 H 56 H Alkaline Phosphatase 45 43 Ammonia Lactate Dehydrogenase 472 H Total Creatine Kinase 6578 H Total Protein 6.2 L D 5.8 L Albumin 3.8 D 3.5 Triglycerides Cholesterol LDL Cholesterol, Calc HDL Cholesterol Vitamin B12 Folate TSH Urine Color Urine Appearance Urine pH Ur Specific [place] Urine Protein Urine Glucose (UA) Urine Ketones Urine Blood Urine Nitrite Ur Leukocyte Esterase Urine RBC Urine WBC Ur Squamous Epith Cells Urine Bacteria Urine Mucus U Random Total Protein Urine Creatinine Urine Microalbumin Microalb/Creat Ratio Protein/Creatinin Ratio Urine Opiates Screen Urine Fentanyl Screen Ur Barbiturates Screen Valproic Acid 103.1 H Ur Phencyclidine Scrn Ur Amphetamines Screen U Benzodiazepines Scrn Urine Cocaine Screen U Marijuana (THC) Screen Ethyl Alcohol Rheumatoid Factor MARLEN Screen MARLEN Titer MARLEN Titer 2 MARLEN Titer 3 MARLEN Pattern MARLEN Pattern 2 MARLEN Pattern 3 Lyme Screen IgG & IgM Lyme Progressive Test Lyme IgG 18 kDa Band Lyme IgG 23 kDa Band Lyme IgG 28 kDa Band Lyme IgG 30 kDa Band Lyme IgG 45 kDa Band Lyme IgG 58 kDa Band Lyme IgG 66 kDa Band Lyme IgG 93 kDa Band Lyme IgG Ab (Immblot) Lyme IgM 23 kDa Band Lyme IgM 39 kDa Band Lyme IgM 41 kDa Band Lyme IgM Interpretaton COVID-19 (URI) COVID-19 Clin Com Influenza Type A (PCR) Influenza Type B (PCR) RSV RNA Qual (PCR) SARS-CoV-2 RNA (RT-PCR) 08/25/21 08/26/21 08/26/21 17:19 07:53 07:53 WBC 5.6 RBC 3.90 L Hgb 11.9 L Hct 34.4 L MCV 88.2 MCH 30.5 MCHC 34.6 RDW 12.9 Plt Count 183 MPV 9.1 L Immature Gran % (Auto) 0.5 H Neut % (Auto) 62.7 Lymph % (Auto) 18.9 L [place] % (Auto) 10.9 Eos % (Auto) 6.6 H Baso % (Auto) 0.4 Lymph # (Auto) 1.1 L [place] # (Auto) 0.6 Eos # (Auto) 0.4 Baso # (Auto) 0.0 Abs Immat Gran (auto) 0.03 Absolute Neuts (auto) 3.5 Absolute Nucleated RBC 0.000 Nucleated RBC % (auto) 0.0 ESR Sodium 144 Cancelled Potassium 3.9 D Cancelled Chloride 105 Cancelled Carbon Dioxide 26 Cancelled Anion Gap 17 Cancelled BUN 11 Creatinine 1.26 Estim Creat Clear Calc 94.9 Estimated GFR > 60 Random Glucose 93 Fasting Glucose Estimat Average Glucose Hemoglobin A1c % Calcium 9.1 Magnesium Cancelled Iron TIBC % Saturation Unsat Iron Binding Total Bilirubin Direct Bilirubin AST ALT Alkaline Phosphatase Ammonia Lactate Dehydrogenase Total Creatine Kinase 5470 H Total Protein Albumin Triglycerides Cholesterol LDL Cholesterol, Calc HDL Cholesterol Vitamin B12 Folate TSH Urine Color Urine Appearance Urine pH Ur Specific [place] Urine Protein Urine Glucose (UA) Urine Ketones Urine Blood Urine Nitrite Ur Leukocyte Esterase Urine RBC Urine WBC Ur Squamous Epith Cells Urine Bacteria Urine Mucus U Random Total Protein Urine Creatinine Urine Microalbumin Microalb/Creat Ratio Protein/Creatinin Ratio Urine Opiates Screen Urine Fentanyl Screen Ur Barbiturates Screen Valproic Acid Ur Phencyclidine Scrn Ur Amphetamines Screen U Benzodiazepines Scrn Urine Cocaine Screen U Marijuana (THC) Screen Ethyl Alcohol Rheumatoid Factor MARLEN Screen MARLEN Titer MARLEN Titer 2 MARLEN Titer 3 MARLEN Pattern MARLEN Pattern 2 MARLEN Pattern 3 Lyme Screen IgG & IgM Lyme Progressive Test Lyme IgG 18 kDa Band Lyme IgG 23 kDa Band Lyme IgG 28 kDa Band Lyme IgG 30 kDa Band Lyme IgG 45 kDa Band Lyme IgG 58 kDa Band Lyme IgG 66 kDa Band Lyme IgG 93 kDa Band Lyme IgG Ab (Immblot) Lyme IgM 23 kDa Band Lyme IgM 39 kDa Band Lyme IgM 41 kDa Band Lyme IgM Interpretaton COVID-19 (URI) COVID-19 Clin Com Influenza Type A (PCR) Influenza Type B (PCR) RSV RNA Qual (PCR) SARS-CoV-2 RNA (RT-PCR) 08/26/21 08/26/21 08/27/21 07:53 14:30 08:19 WBC 7.0 5.0 3.8 L RBC 4.35 L 4.17 L 4.41 L Hgb 13.5 L 12.5 L 13.5 L Hct 38.5 L 37.1 L 40.3 L MCV 88.5 89.0 91.4 MCH 31.0 30.0 30.6 MCHC 35.1 33.7 33.5 RDW 12.9 12.8 13.2 Plt Count 200 191 178 MPV 9.4 9.5 9.8 Immature Gran % (Auto) 0.4 1.1 H Neut % (Auto) 86.8 H 74.0 H Lymph % (Auto) 3.9 L 11.9 L [place] % (Auto) 5.6 11.4 H Eos % (Auto) 3.2 1.1 Baso % (Auto) 0.1 0.5 Lymph # (Auto) 0.3 L 0.5 L [place] # (Auto) 0.4 0.4 Eos # (Auto) 0.2 0.0 Baso # (Auto) 0.0 0.0 Abs Immat Gran (auto) 0.03 0.04 H Absolute Neuts (auto) 6.0 2.8 Absolute Nucleated RBC 0.000 0.000 0.000 Nucleated RBC % (auto) 0.0 0.0 0.0 ESR Sodium Potassium Chloride Carbon Dioxide Anion Gap BUN Creatinine Estim Creat Clear Calc Estimated GFR Random Glucose Fasting Glucose Estimat Average Glucose Hemoglobin A1c % Calcium Magnesium Iron TIBC % Saturation Unsat Iron Binding Total Bilirubin Direct Bilirubin AST ALT Alkaline Phosphatase Ammonia Lactate Dehydrogenase Total Creatine Kinase Total Protein Albumin Triglycerides Cholesterol LDL Cholesterol, Calc HDL Cholesterol Vitamin B12 Folate TSH Urine Color Urine Appearance Urine pH Ur Specific [place] Urine Protein Urine Glucose (UA) Urine Ketones Urine Blood Urine Nitrite Ur Leukocyte Esterase Urine RBC Urine WBC Ur Squamous Epith Cells Urine Bacteria Urine Mucus U Random Total Protein Urine Creatinine Urine Microalbumin Microalb/Creat Ratio Protein/Creatinin Ratio Urine Opiates Screen Urine Fentanyl Screen Ur Barbiturates Screen Valproic Acid Ur Phencyclidine Scrn Ur Amphetamines Screen U Benzodiazepines Scrn Urine Cocaine Screen U Marijuana (THC) Screen Ethyl Alcohol Rheumatoid Factor MARLEN Screen MARLEN Titer MARLEN Titer 2 MARLEN Titer 3 MARLEN Pattern MARLEN Pattern 2 MARLEN Pattern 3 Lyme Screen IgG & IgM Lyme Progressive Test Lyme IgG 18 kDa Band Lyme IgG 23 kDa Band Lyme IgG 28 kDa Band Lyme IgG 30 kDa Band Lyme IgG 45 kDa Band Lyme IgG 58 kDa Band Lyme IgG 66 kDa Band Lyme IgG 93 kDa Band Lyme IgG Ab (Immblot) Lyme IgM 23 kDa Band Lyme IgM 39 kDa Band Lyme IgM 41 kDa Band Lyme IgM Interpretaton COVID-19 (URI) COVID-19 Clin Com Influenza Type A (PCR) Influenza Type B (PCR) RSV RNA Qual (PCR) SARS-CoV-2 RNA (RT-PCR) 08/27/21 08/27/21 08/27/21 08:19 08:19 13:58 WBC RBC Hgb Hct MCV MCH MCHC RDW Plt Count MPV Immature Gran % (Auto) Neut % (Auto) Lymph % (Auto) [place] % (Auto) Eos % (Auto) Baso % (Auto) Lymph # (Auto) [place] # (Auto) Eos # (Auto) Baso # (Auto) Abs Immat Gran (auto) Absolute Neuts (auto) Absolute Nucleated RBC Nucleated RBC % (auto) ESR Sodium 144 Potassium 3.8 Chloride 107 Carbon Dioxide 24 Anion Gap 17 BUN 21 H D Creatinine 1.54 H Estim Creat Clear Calc 77.6 Estimated GFR 49 Random Glucose Fasting Glucose 75 Estimat Average Glucose Hemoglobin A1c % Calcium 8.8 Magnesium Iron 24 L TIBC 245 % Saturation 10 L Unsat Iron Binding 221 Total Bilirubin 0.6 Direct Bilirubin AST 102 H ALT 73 H Alkaline Phosphatase 47 Ammonia 45 Lactate Dehydrogenase Total Creatine Kinase 3624 H Total Protein 6.0 L Albumin 3.5 Triglycerides Cholesterol LDL Cholesterol, Calc HDL Cholesterol Vitamin B12 Folate TSH Urine Color Urine Appearance Urine pH Ur Specific [place] Urine Protein Urine Glucose (UA) Urine Ketones Urine Blood Urine Nitrite Ur Leukocyte Esterase Urine RBC Urine WBC Ur Squamous Epith Cells Urine Bacteria Urine Mucus U Random Total Protein Urine Creatinine Urine Microalbumin Microalb/Creat Ratio Protein/Creatinin Ratio Urine Opiates Screen Urine Fentanyl Screen Ur Barbiturates Screen Valproic Acid Ur Phencyclidine Scrn Ur Amphetamines Screen U Benzodiazepines Scrn Urine Cocaine Screen U Marijuana (THC) Screen Ethyl Alcohol Rheumatoid Factor MARLEN Screen MARLEN Titer MARLEN Titer 2 MARLEN Titer 3 MARLEN Pattern MARLEN Pattern 2 MARLEN Pattern 3 Lyme Screen IgG & IgM Lyme Progressive Test Lyme IgG 18 kDa Band Lyme IgG 23 kDa Band Lyme IgG 28 kDa Band Lyme IgG 30 kDa Band Lyme IgG 45 kDa Band Lyme IgG 58 kDa Band Lyme IgG 66 kDa Band Lyme IgG 93 kDa Band Lyme IgG Ab (Immblot) Lyme IgM 23 kDa Band Lyme IgM 39 kDa Band Lyme IgM 41 kDa Band Lyme IgM Interpretaton COVID-19 (URI) COVID-19 Clin Com Influenza Type A (PCR) NEGATIVE Influenza Type B (PCR) NEGATIVE RSV RNA Qual (PCR) NEGATIVE SARS-CoV-2 RNA (RT-PCR) NEGATIVE 08/28/21 08/29/21 08/29/21 08:59 07:10 07:10 WBC 7.0 RBC 4.18 L Hgb 12.6 L Hct 37.2 L MCV 89.0 MCH 30.1 MCHC 33.9 RDW 13.2 Plt Count 204 MPV 8.9 L Immature Gran % (Auto) 1.0 H Neut % (Auto) 62.8 Lymph % (Auto) 16.3 L [place] % (Auto) 12.9 H Eos % (Auto) 6.7 H Baso % (Auto) 0.3 Lymph # (Auto) 1.1 L [place] # (Auto) 0.9 Eos # (Auto) 0.5 H Baso # (Auto) 0.0 Abs Immat Gran (auto) 0.07 H Absolute Neuts (auto) 4.4 Absolute Nucleated RBC 0.000 Nucleated RBC % (auto) 0.0 ESR Sodium 144 Potassium 3.4 Chloride 107 Carbon Dioxide 29 Anion Gap 11 L BUN 13 Creatinine 1.29 Estim Creat Clear Calc 92.7 Estimated GFR > 60 Random Glucose 107 Fasting Glucose Estimat Average Glucose 94 Hemoglobin A1c % 4.9 Calcium 8.5 Magnesium 1.8 Iron TIBC % Saturation Unsat Iron Binding Total Bilirubin 0.6 Direct Bilirubin AST 69 H ALT 66 H Alkaline Phosphatase 44 Ammonia Lactate Dehydrogenase Total Creatine Kinase 2202 H D Total Protein 5.8 L Albumin 3.3 L Triglycerides Cholesterol LDL Cholesterol, Calc HDL Cholesterol Vitamin B12 Folate TSH Urine Color Urine Appearance Urine pH Ur Specific [place] Urine Protein Urine Glucose (UA) Urine Ketones Urine Blood Urine Nitrite Ur Leukocyte Esterase Urine RBC Urine WBC Ur Squamous Epith Cells Urine Bacteria Urine Mucus U Random Total Protein Urine Creatinine Urine Microalbumin Microalb/Creat Ratio Protein/Creatinin Ratio Urine Opiates Screen Urine Fentanyl Screen Ur Barbiturates Screen Valproic Acid Ur Phencyclidine Scrn Ur Amphetamines Screen U Benzodiazepines Scrn Urine Cocaine Screen U Marijuana (THC) Screen Ethyl Alcohol Rheumatoid Factor MARLEN Screen MARLEN Titer MARLEN Titer 2 MARLEN Titer 3 MARLEN Pattern MARLEN Pattern 2 MARLEN Pattern 3 Lyme Screen IgG & IgM Lyme Progressive Test Lyme IgG 18 kDa Band Lyme IgG 23 kDa Band Lyme IgG 28 kDa Band Lyme IgG 30 kDa Band Lyme IgG 45 kDa Band Lyme IgG 58 kDa Band Lyme IgG 66 kDa Band Lyme IgG 93 kDa Band Lyme IgG Ab (Immblot) Lyme IgM 23 kDa Band Lyme IgM 39 kDa Band Lyme IgM 41 kDa Band Lyme IgM Interpretaton COVID-19 (URI) COVID-19 Clin Com Influenza Type A (PCR) Influenza Type B (PCR) RSV RNA Qual (PCR) SARS-CoV-2 RNA (RT-PCR) 09/04/21 09/04/21 09/04/21 07:34 07:34 07:34 WBC 5.6 RBC 4.47 L Hgb 13.3 L Hct 40.5 L MCV 90.6 MCH 29.8 MCHC 32.8 RDW 12.8 Plt Count 210 MPV 9.0 L Immature Gran % (Auto) 1.8 H Neut % (Auto) 52.7 Lymph % (Auto) 27.5 [place] % (Auto) 12.6 H Eos % (Auto) 5.0 H Baso % (Auto) 0.4 Lymph # (Auto) 1.5 [place] # (Auto) 0.7 Eos # (Auto) 0.3 Baso # (Auto) 0.0 Abs Immat Gran (auto) 0.10 H Absolute Neuts (auto) 2.9 Absolute Nucleated RBC 0.000 Nucleated RBC % (auto) 0.0 ESR Sodium 145 145 Potassium 4.6 D 4.6 Chloride 110 H 111 H Carbon Dioxide 24 23 Anion Gap 16 16 BUN 24 H D 24 H Creatinine 1.99 H 2.00 H Estim Creat Clear Calc 60.1 59.8 Estimated GFR 37 36 Random Glucose 109 Fasting Glucose 108 H D Estimat Average Glucose Hemoglobin A1c % Calcium 9.6 D 9.5 Magnesium Iron TIBC % Saturation Unsat Iron Binding Total Bilirubin 0.5 Direct Bilirubin AST 27 D ALT 45 H Alkaline Phosphatase 46 Ammonia Lactate Dehydrogenase Total Creatine Kinase 248 H D 245 H Total Protein 6.6 Albumin 3.8 Triglycerides Cholesterol LDL Cholesterol, Calc HDL Cholesterol Vitamin B12 Folate TSH Urine Color Urine Appearance Urine pH Ur Specific [place] Urine Protein Urine Glucose (UA) Urine Ketones Urine Blood Urine Nitrite Ur Leukocyte Esterase Urine RBC Urine WBC Ur Squamous Epith Cells Urine Bacteria Urine Mucus U Random Total Protein Urine Creatinine Urine Microalbumin Microalb/Creat Ratio Protein/Creatinin Ratio Urine Opiates Screen Urine Fentanyl Screen Ur Barbiturates Screen Valproic Acid Ur Phencyclidine Scrn Ur Amphetamines Screen U Benzodiazepines Scrn Urine Cocaine Screen U Marijuana (THC) Screen Ethyl Alcohol Rheumatoid Factor MARLEN Screen MARLEN Titer MARLEN Titer 2 MARLEN Titer 3 MARLEN Pattern MARLEN Pattern 2 MARLEN Pattern 3 Lyme Screen IgG & IgM Lyme Progressive Test Lyme IgG 18 kDa Band Lyme IgG 23 kDa Band Lyme IgG 28 kDa Band Lyme IgG 30 kDa Band Lyme IgG 45 kDa Band Lyme IgG 58 kDa Band Lyme IgG 66 kDa Band Lyme IgG 93 kDa Band Lyme IgG Ab (Immblot) Lyme IgM 23 kDa Band Lyme IgM 39 kDa Band Lyme IgM 41 kDa Band Lyme IgM Interpretaton COVID-19 (URI) COVID-19 Clin Com Influenza Type A (PCR) Influenza Type B (PCR) RSV RNA Qual (PCR) SARS-CoV-2 RNA (RT-PCR) 09/04/21 09/06/21 09/06/21 10:30 08:33 08:33 WBC RBC Hgb Hct MCV MCH MCHC RDW Plt Count MPV Immature Gran % (Auto) Neut % (Auto) Lymph % (Auto) [place] % (Auto) Eos % (Auto) Baso % (Auto) Lymph # (Auto) [place] # (Auto) Eos # (Auto) Baso # (Auto) Abs Immat Gran (auto) Absolute Neuts (auto) Absolute Nucleated RBC Nucleated RBC % (auto) ESR Sodium 146 H 143 Potassium 4.6 4.6 Chloride 110 H 110 H Carbon Dioxide 26 23 Anion Gap 15 15 BUN 22 H 22 H Creatinine 1.86 H 1.77 H Estim Creat Clear Calc 64.3 67.5 Estimated GFR 40 42 Random Glucose 89 92 Fasting Glucose Estimat Average Glucose Hemoglobin A1c % Calcium 9.5 9.7 Magnesium Iron TIBC % Saturation Unsat Iron Binding Total Bilirubin Direct Bilirubin AST ALT Alkaline Phosphatase Ammonia Lactate Dehydrogenase Total Creatine Kinase Total Protein Albumin Triglycerides Cholesterol LDL Cholesterol, Calc HDL Cholesterol Vitamin B12 Folate TSH Cancelled 0.70 Urine Color Urine Appearance Urine pH Ur Specific [place] Urine Protein Urine Glucose (UA) Urine Ketones Urine Blood Urine Nitrite Ur Leukocyte Esterase Urine RBC Urine WBC Ur Squamous Epith Cells Urine Bacteria Urine Mucus U Random Total Protein Urine Creatinine Urine Microalbumin Microalb/Creat Ratio Protein/Creatinin Ratio Urine Opiates Screen Urine Fentanyl Screen Ur Barbiturates Screen Valproic Acid Ur Phencyclidine Scrn Ur Amphetamines Screen U Benzodiazepines Scrn Urine Cocaine Screen U Marijuana (THC) Screen Ethyl Alcohol Rheumatoid Factor MARLEN Screen MARLEN Titer MARLEN Titer 2 MARLEN Titer 3 MARLEN Pattern MARLEN Pattern 2 MARLEN Pattern 3 Lyme Screen IgG & IgM Lyme Progressive Test Lyme IgG 18 kDa Band Lyme IgG 23 kDa Band Lyme IgG 28 kDa Band Lyme IgG 30 kDa Band Lyme IgG 45 kDa Band Lyme IgG 58 kDa Band Lyme IgG 66 kDa Band Lyme IgG 93 kDa Band Lyme IgG Ab (Immblot) Lyme IgM 23 kDa Band Lyme IgM 39 kDa Band Lyme IgM 41 kDa Band Lyme IgM Interpretaton COVID-19 (URI) COVID-19 Clin Com Influenza Type A (PCR) Influenza Type B (PCR) RSV RNA Qual (PCR) SARS-CoV-2 RNA (RT-PCR) 09/09/21 09/09/21 09/09/21 09:11 09:11 09:11 WBC 4.7 L RBC 4.22 L Hgb 12.7 L Hct 38.3 L MCV 90.8 MCH 30.1 MCHC 33.2 RDW 12.9 Plt Count 260 MPV 9.5 Immature Gran % (Auto) 0.4 Neut % (Auto) 62.9 Lymph % (Auto) 18.9 L [place] % (Auto) 9.9 Eos % (Auto) 7.5 H Baso % (Auto) 0.4 Lymph # (Auto) 0.9 L [place] # (Auto) 0.5 Eos # (Auto) 0.4 Baso # (Auto) 0.0 Abs Immat Gran (auto) 0.02 Absolute Neuts (auto) 2.9 Absolute Nucleated RBC 0.000 Nucleated RBC % (auto) 0.0 ESR 17 H Sodium 142 Potassium 4.5 Chloride 109 H Carbon Dioxide 27 Anion Gap 11 L BUN 19 H Creatinine 1.80 H Estim Creat Clear Calc 66.4 Estimated GFR 41 Random Glucose 92 Fasting Glucose Estimat Average Glucose Hemoglobin A1c % Calcium 9.3 Magnesium Iron TIBC % Saturation Unsat Iron Binding Total Bilirubin 0.6 Direct Bilirubin AST 26 ALT 35 Alkaline Phosphatase 50 Ammonia Lactate Dehydrogenase Total Creatine Kinase Total Protein 6.5 Albumin 3.9 Triglycerides Cholesterol LDL Cholesterol, Calc HDL Cholesterol Vitamin B12 Folate TSH Urine Color Urine Appearance Urine pH Ur Specific [place] Urine Protein Urine Glucose (UA) Urine Ketones Urine Blood Urine Nitrite Ur Leukocyte Esterase Urine RBC Urine WBC Ur Squamous Epith Cells Urine Bacteria Urine Mucus U Random Total Protein Urine Creatinine Urine Microalbumin Microalb/Creat Ratio Protein/Creatinin Ratio Urine Opiates Screen Urine Fentanyl Screen Ur Barbiturates Screen Valproic Acid Ur Phencyclidine Scrn Ur Amphetamines Screen U Benzodiazepines Scrn Urine Cocaine Screen U Marijuana (THC) Screen Ethyl Alcohol Rheumatoid Factor MARLEN Screen MARLEN Titer MARLEN Titer 2 MARLEN Titer 3 MARLEN Pattern MARLEN Pattern 2 MARLEN Pattern 3 Lyme Screen IgG & IgM Lyme Progressive Test Lyme IgG 18 kDa Band Lyme IgG 23 kDa Band Lyme IgG 28 kDa Band Lyme IgG 30 kDa Band Lyme IgG 45 kDa Band Lyme IgG 58 kDa Band Lyme IgG 66 kDa Band Lyme IgG 93 kDa Band Lyme IgG Ab (Immblot) Lyme IgM 23 kDa Band Lyme IgM 39 kDa Band Lyme IgM 41 kDa Band Lyme IgM Interpretaton COVID-19 (URI) COVID-19 Clin Com Influenza Type A (PCR) Influenza Type B (PCR) RSV RNA Qual (PCR) SARS-CoV-2 RNA (RT-PCR) 09/09/21 09/09/21 09/09/21 09:11 09:11 09:11 WBC RBC Hgb Hct MCV MCH MCHC RDW Plt Count MPV Immature Gran % (Auto) Neut % (Auto) Lymph % (Auto) [place] % (Auto) Eos % (Auto) Baso % (Auto) Lymph # (Auto) [place] # (Auto) Eos # (Auto) Baso # (Auto) Abs Immat Gran (auto) Absolute Neuts (auto) Absolute Nucleated RBC Nucleated RBC % (auto) ESR Sodium Potassium Chloride Carbon Dioxide Anion Gap BUN Creatinine Estim Creat Clear Calc Estimated GFR Random Glucose Fasting Glucose Estimat Average Glucose Hemoglobin A1c % Calcium Magnesium Iron TIBC % Saturation Unsat Iron Binding Total Bilirubin Direct Bilirubin AST ALT Alkaline Phosphatase Ammonia Lactate Dehydrogenase Total Creatine Kinase Total Protein Albumin Triglycerides Cholesterol LDL Cholesterol, Calc HDL Cholesterol Vitamin B12 Folate TSH Urine Color Urine Appearance Urine pH Ur Specific [place] Urine Protein Urine Glucose (UA) Urine Ketones Urine Blood Urine Nitrite Ur Leukocyte Esterase Urine RBC Urine WBC Ur Squamous Epith Cells Urine Bacteria Urine Mucus U Random Total Protein Urine Creatinine Urine Microalbumin Microalb/Creat Ratio Protein/Creatinin Ratio Urine Opiates Screen Urine Fentanyl Screen Ur Barbiturates Screen Valproic Acid Ur Phencyclidine Scrn Ur Amphetamines Screen U Benzodiazepines Scrn Urine Cocaine Screen U Marijuana (THC) Screen Ethyl Alcohol Rheumatoid Factor < 15.0 MARLEN Screen NEGATIVE MARLEN Titer TNP MARLEN Titer 2 TNP MARLEN Titer 3 TNP MARLEN Pattern TNP MARLEN Pattern 2 TNP MARLEN Pattern 3 TNP Lyme Screen IgG & IgM POSITIVE Lyme Progressive Test 1.46 H Lyme IgG 18 kDa Band NON-REACTIVE Lyme IgG 23 kDa Band REACTIVE A Lyme IgG 28 kDa Band REACTIVE A Lyme IgG 30 kDa Band REACTIVE A Lyme IgG 45 kDa Band REACTIVE A Lyme IgG 58 kDa Band NON-REACTIVE Lyme IgG 66 kDa Band REACTIVE A Lyme IgG 93 kDa Band NON-REACTIVE Lyme IgG Ab (Immblot) POSITIVE A Lyme IgM 23 kDa Band NON-REACTIVE Lyme IgM 39 kDa Band NON-REACTIVE Lyme IgM 41 kDa Band NON-REACTIVE Lyme IgM Interpretaton NEGATIVE COVID-19 (URI) COVID-19 Clin Com Influenza Type A (PCR) Influenza Type B (PCR) RSV RNA Qual (PCR) SARS-CoV-2 RNA (RT-PCR) 09/09/21 09/10/21 09/13/21 09:11 08:41 14:12 WBC RBC Hgb Hct MCV MCH MCHC RDW Plt Count MPV Immature Gran % (Auto) Neut % (Auto) Lymph % (Auto) [place] % (Auto) Eos % (Auto) Baso % (Auto) Lymph # (Auto) [place] # (Auto) Eos # (Auto) Baso # (Auto) Abs Immat Gran (auto) Absolute Neuts (auto) Absolute Nucleated RBC Nucleated RBC % (auto) ESR Sodium Potassium Chloride Carbon Dioxide Anion Gap BUN Creatinine Estim Creat Clear Calc Estimated GFR Random Glucose Fasting Glucose Estimat Average Glucose 97 Hemoglobin A1c % 5.0 Calcium Magnesium Iron TIBC % Saturation Unsat Iron Binding Total Bilirubin Direct Bilirubin AST ALT Alkaline Phosphatase Ammonia 19 Lactate Dehydrogenase Total Creatine Kinase Total Protein Albumin Triglycerides Cholesterol LDL Cholesterol, Calc HDL Cholesterol Vitamin B12 Folate TSH Urine Color Urine Appearance Urine pH Ur Specific [place] Urine Protein Urine Glucose (UA) Urine Ketones Urine Blood Urine Nitrite Ur Leukocyte Esterase Urine RBC Urine WBC Ur Squamous Epith Cells Urine Bacteria Urine Mucus U Random Total Protein 12 Urine Creatinine 78.22 Urine Microalbumin 47.0 Microalb/Creat Ratio 60.0 Protein/Creatinin Ratio 0.15 Urine Opiates Screen Urine Fentanyl Screen Ur Barbiturates Screen Valproic Acid Ur Phencyclidine Scrn Ur Amphetamines Screen U Benzodiazepines Scrn Urine Cocaine Screen U Marijuana (THC) Screen Ethyl Alcohol Rheumatoid Factor MARLEN Screen MARLEN Titer MARLEN Titer 2 MARLEN Titer 3 MARLEN Pattern MARLEN Pattern 2 MARLEN Pattern 3 Lyme Screen IgG & IgM Lyme Progressive Test Lyme IgG 18 kDa Band Lyme IgG 23 kDa Band Lyme IgG 28 kDa Band Lyme IgG 30 kDa Band Lyme IgG 45 kDa Band Lyme IgG 58 kDa Band Lyme IgG 66 kDa Band Lyme IgG 93 kDa Band Lyme IgG Ab (Immblot) Lyme IgM 23 kDa Band Lyme IgM 39 kDa Band Lyme IgM 41 kDa Band Lyme IgM Interpretaton COVID-19 (RUI) COVID-19 Clin Com Influenza Type A (PCR) Influenza Type B (PCR) RSV RNA Qual (PCR) SARS-CoV-2 RNA (RT-PCR) 09/16/21 09/17/21 08:35 12:26 WBC RBC Hgb Hct MCV MCH MCHC RDW Plt Count MPV Immature Gran % (Auto) Neut % (Auto) Lymph % (Auto) [place] % (Auto) Eos % (Auto) Baso % (Auto) Lymph # (Auto) [place] # (Auto) Eos # (Auto) Baso # (Auto) Abs Immat Gran (auto) Absolute Neuts (auto) 5.1 Absolute Nucleated RBC Nucleated RBC % (auto) ESR Sodium Potassium Chloride Carbon Dioxide Anion Gap BUN Creatinine Estim Creat Clear Calc Estimated GFR Random Glucose Fasting Glucose Estimat Average Glucose Hemoglobin A1c % Calcium Magnesium Iron TIBC % Saturation Unsat Iron Binding Total Bilirubin Direct Bilirubin AST ALT Alkaline Phosphatase Ammonia Lactate Dehydrogenase Total Creatine Kinase Total Protein Albumin Triglycerides Cholesterol LDL Cholesterol, Calc HDL Cholesterol Vitamin B12 Folate TSH Urine Color YELLOW Urine Appearance HAZY Urine pH 6.0 Ur Specific [place] 1.015 Urine Protein TRACE Urine Glucose (UA) NEG Urine Ketones NEG Urine Blood NEG Urine Nitrite NEG Ur Leukocyte Esterase NEG Urine RBC 0 Urine WBC 0 Ur Squamous Epith Cells NONE Urine Bacteria NONE Urine Mucus 1+ U Random Total Protein Urine Creatinine Urine Microalbumin Microalb/Creat Ratio Protein/Creatinin Ratio Urine Opiates Screen Urine Fentanyl Screen Ur Barbiturates Screen Valproic Acid Ur Phencyclidine Scrn Ur Amphetamines Screen U Benzodiazepines Scrn Urine Cocaine Screen U Marijuana (THC) Screen Ethyl Alcohol Rheumatoid Factor MARLEN Screen MARLEN Titer MARLEN Titer 2 MARLEN Titer 3 MARLEN Pattern MARLEN Pattern 2 MARLEN Pattern 3 Lyme Screen IgG & IgM Lyme Progressive Test Lyme IgG 18 kDa Band Lyme IgG 23 kDa Band Lyme IgG 28 kDa Band Lyme IgG 30 kDa Band Lyme IgG 45 kDa Band Lyme IgG 58 kDa Band Lyme IgG 66 kDa Band Lyme IgG 93 kDa Band Lyme IgG Ab (Immblot) Lyme IgM 23 kDa Band Lyme IgM 39 kDa Band Lyme IgM 41 kDa Band Lyme IgM Interpretaton COVID-19 (URI) COVID-19 Clin Com Influenza Type A (PCR) Influenza Type B (PCR) RSV RNA Qual (PCR) SARS-CoV-2 RNA (RT-PCR) Airway Mallampati Class: II TM Dist: >3cm Neck ROM: Full Heart: rrr Lungs: cta Assessment and Plan Assessment Anesthesia Assessment: Anesthesia Plan Discussed and Chart Reviewed Final Anesthetic Review Family History of Problems with Anesthesia: No History of Problems with Anesthesia: No NPO: Yes ASA Class: III Final Preanesthetic Review: No Changes in Pt Med Stat, Meds/Allgs Chart Reviewed and Consent Obtained/Reviewed Patient Risk: Intermediate Procedure Risk: Intermediate Anesthetic Plan Anesthetic Plan: GA Disposition: Standard PACU
--- NOTE | 2021-09-18 08:04 | MHC.SHP ---
Pre-Procedural Eval Section A Date of Service: 09/18/21 The patient is an INPATIENT: Yes Changes since office visit: No Cold of Flu in the past 2 weeks, No New Medical Problems, No Changes in Medication and No Patient answered all questions The History & Physical has been completed within 30 days and I have reviewed it.: Yes Section B Chief Complaint: joleen Allergies: Allergies Allergy/AdvReac Type Severity Reaction Status Date / Time haloperidol [From Haldol] Allergy Unknown Verified 07/22/20 03:38 Plan I have reviewed the history and physical and performed a pertinent physical examination on my patient. No changes have occurred unless specified.
--- NOTE | 2021-09-18 08:05 | HO.ECTPROC ---
ECT Procedure Note Diagnosis/Treatment Date of Service: 09/18/21 Diagnosis: Bipolar disorder Previous ECT Date: 09/13/21 Treatment: Series Interval Clinical Notes: The patient is not aggressive, still hypomanic but more organized, denies side effects with previous ECT. The patient can't remember that I did his previous ECT. ECT Settings Device: THYMATRON DGx Electrode Placement: Bitemporal Program/Pulse Width: 0.50 Energy Percent: 100 Seizure Duration By EEG (in seconds): 35 By Motor Observation (in seconds): 22 Medications Administration General Anesthetic: Etomidate (14) Muscle Relaxant: Rocuronium (50 with reverse) Ancillary Medications Analgesics: Torodol - Pre ECT Anti-emetics: Zofran - Pre ECT Airway Management Airway Management: Bag Mask Ventilation Treatment Recommendations No Changes Recommended: No change Pt Tolerated Procedure w/o Issue: Yes
[2021-09-18] MEDS: Multivitamin TABLET 1 TAB PO (09:58)
[2021-09-18] MEDS: Nystatin Oral Susp 500,000 UNIT/5 ML ORAL.SUSP 400000 UNIT BUCCAL ×2 (09:58→12:10)
[2021-09-18] MEDS: Bisoprolol Fumarate 5 MG TABLET PO (09:58)
[2021-09-18] MEDS: amLODIPine Besylate 10 MG TABLET PO (09:58)
[2021-09-18 12:39] LABS: MANUAL DIFF FLAG NO
[2021-09-18 12:47] LABS: Basophils Percent Auto 0.5 % (0-2); Eosinophils Absolute Auto 0.2 X10*3/uL (0.0-0.4); Eosinophils Percent Auto 3.7 % (0-4); Hematocrit 39.9 % (42.0-52.0); Hemoglobin 13.1 g/dl (14.0-18.0); Imm Gran Abs Auto 0.03 X10*3/uL (0.00-0.03); Imm Gran Pct Auto 0.5 % (0.0-0.4); Lymphocytes Absolute Auto 1.1 X10*3/uL (1.2-4.9); Lymphocytes Percent Auto 18.9 % (20-40); Mean Corpuscular HGB Conc 32.8 g/dl (31.0-36.0); Mean Corpuscular Hemoglobin 29.4 pg (27.0-33.0); Mean Corpuscular Volume 89.5 fL (80.0-98.0); Mean Platelet Volume 9.6 fL (9.4-12.4); Monocytes Absolute Auto 0.6 X10*3/uL (0.1-1.2); Monocytes Percent Auto 10.8 % (2-11); Neutrophils Absolute Auto 3.9 x10*3/uL (2.0-8.3); Neutrophils Percent Auto 65.6 % (45-73); Platelet Count 265 X10*3/uL (160-400); Red Blood Count 4.46 X10*6/uL (4.60-5.80); Red Cell Distribution Width 12.8 % (11.0-16.0); White Blood Count 5.9 X10*3/uL (4.8-10.8)
[2021-09-18] MEDS: cloZAPine 25 MG TABLET 75 MG PO (20:39)
--- NOTE | 2021-09-18 23:02 | P.PNPSI_ITS ---
Subjective Subjective Date of Service: 09/18/21 Reason For Visit: joleen Subjective Notes: Conditional Voluntary Healthcare Proxy: Yes Interim History: Patient had ECT this morning continues on clozapine he is more logical not get ear euphoric difficulty integrating a processing information difficulty understanding need for transition unclear outpatient providers has short-term memory dysfunction still has residual thrush Mental Status Exam Mental Status Exam Narrative: r Patient Appearance: Unkempt Patient Orientation: Person, Place and Situation Level of Consciousness: Awake and Restless Patient Behavior: Talkative, Restless, Anxious, Distractible and Good Eye Contact Mood Description: Depressed, Anxious, Blunted and Apprehensive Affect Description: Constricted, Depressed, Labile and Apprehensive Patient Cognition Impaired: Yes Ability to Follow Directions: Fair Speech Pattern: Slurred, Rambling and Pressured Memory Description: Episodic Impaired and Working Impaired Thought Process: Racing, Distracted and Rumination Thought Content: positive for Perseveration, positive for Preoccupation, negative for Suicidal Ideation or negative for Homicidal Ideation Depressive Symptoms: Increased Anxiety Abnormal Motor Activity Signs and Symptoms: Restlessness Judgement: Fair Judgement and Insight: Difficulty understanding he remains ill having a difficult time tolerating more depressive and anxious feelings Diagnostics Vital Signs (24Hr): Vital Signs - 24 hr 09/18/21 06:50 09/18/21 08:30 09/18/21 08:35 Temperature 97.3 F 99.4 F Pulse Rate 88 87 101 H Respiratory Rate 18 16 20 Blood Pressure 117/78 129/80 143/96 H Pulse Oximetry 97 99 96 09/18/21 08:40 09/18/21 08:45 09/18/21 09:00 Temperature 98.4 F Pulse Rate 107 H 106 H 110 H Respiratory Rate 22 H 16 18 Blood Pressure 140/75 H 143/97 H 131/72 Pulse Oximetry 98 99 98 09/18/21 09:49 09/18/21 19:08 Temperature 98.4 F Pulse Rate 110 H 84 Respiratory Rate 18 Blood Pressure 132/71 105/61 Pulse Oximetry 98 BMI result Body Mass Index 28.5 Labs Results: 09/18/21 12:19 09/09/21 09:11 Labs: Laboratory Results - last 48 hr 09/17/21 09/18/21 12:26 12:19 WBC 5.9 RBC 4.46 L Hgb 13.1 L Hct 39.9 L MCV 89.5 MCH 29.4 MCHC 32.8 RDW 12.8 Plt Count 265 MPV 9.6 Immature Gran % (Auto) 0.5 H Neut % (Auto) 65.6 Lymph % (Auto) 18.9 L [place] % (Auto) 10.8 Eos % (Auto) 3.7 Baso % (Auto) 0.5 Lymph # (Auto) 1.1 L [place] # (Auto) 0.6 Eos # (Auto) 0.2 Baso # (Auto) 0.0 Abs Immat Gran (auto) 0.03 Absolute Neuts (auto) 3.9 Absolute Nucleated RBC 0.000 Nucleated RBC % (auto) 0.0 Urine Color YELLOW Urine Appearance HAZY Urine pH 6.0 Ur Specific [place] 1.015 Urine Protein TRACE Urine Glucose (UA) NEG Urine Ketones NEG Urine Blood NEG Urine Nitrite NEG Ur Leukocyte Esterase NEG Urine RBC 0 Urine WBC 0 Ur Squamous Epith Cells NONE Urine Bacteria NONE Urine Mucus 1+ Imaging Radiology Impressions: ITS Impressions Chest X-Ray 08/26/21 14:28 IMPRESSION: Low lung volume and nonspecific subtle bibasilar airspace disease, may represent hypoventilatory, atelectatic changes versus subtle infiltrate or combination thereof. No evidence of any dense airspace pneumonia. Medications Medications Current Medications Acetaminophen (Acetaminophen 325 Mg Tablet) 975 mg PO QID PRN PRN Reason: Mild Pain (Scale Score 1-4) Last Admin: 09/10/21 00:06 Dose: 975 mg Documented by: Al Hydroxide/Mg Hydroxide (Magnesium Hydrox/Alum Hydrox 30 Ml Oral.Susp) 30 ml PO Q6H PRN PRN Reason: Heartburn/Nausea Amlodipine Besylate (Amlodipine Besylate 10 Mg Tablet) 10 mg PO DAILY [facility]; Protocol Last Admin: 09/18/21 09:58 Dose: 10 mg Documented by: Aripiprazole (Aripiprazole Er 400 Mg Suser.Syr) 400 mg IM Q28D [facility] Last Admin: 09/17/21 11:13 Dose: 400 mg Documented by: Bisoprolol Fumarate (Bisoprolol Fumarate 5 Mg Tablet) 5 mg PO DAILY [facility] Last Admin: 09/18/21 09:58 Dose: 5 mg Documented by: Clotrimazole (Clotrimazole 10 Mg Robinson) 10 mg MUCOUS MEM 5XD [facility] Last Admin: 09/18/21 18:41 Dose: 10 mg Documented by: Clozapine (Clozapine 25 Mg Tablet) 75 mg PO BEDTIME CONRAD Last Admin: 09/18/21 20:39 Dose: 75 mg Documented by: Loperamide HCl (Loperamide Hcl 2 Mg Capsule) 2 mg PO Q4H PRN PRN Reason: Diarrhea Last Admin: 08/27/21 12:31 Dose: 2 mg Documented by: Magnesium Hydroxide (Milk Of Magnesia 30 Ml Oral.Susp) 30 ml PO DAILY PRN PRN Reason: Constipation Last Admin: 09/16/21 02:48 Dose: 30 ml Documented by: Multivitamins/Vitamin C (Multivitamin Tablet) 1 tab PO DAILY CONRAD Last Admin: 09/18/21 09:58 Dose: 1 tab Documented by: Quetiapine Fumarate (Quetiapine Fumarate 100 Mg Tablet) 100 mg PO Q4H PRN PRN Reason: Psychosis Last Admin: 09/13/21 16:55 Dose: 100 mg Documented by: Allergies Allergies Allergy/AdvReac Type Severity Reaction Status Date / Time haloperidol [From Haldol] Allergy Unknown Verified 07/22/20 03:38 Assessment & Plan Assessment & Plan (1) Hypertension: Status: Acute Code(s): I10 - Essential (primary) hypertension (2) Bipolar affective disorder, mixed, severe, with psychotic behavior: Status: Acute Code(s): F31.64 - Bipolar disorder, current episode mixed, severe, with psychotic features Assessment and Plan: Renal consult reviewed. Patient hopefully appears to be cycling down perhaps from his joleen continue ECT Clozaril started remains on two-to-one for present current note 09/13/21 cont ect clozapine 50 hs taper olanzapine 09/14: Continue current tx plan. ECT. Trial 1:1 instead of 2:09/15: Continue current tx plan. ECT. 1:. 09/16 Continue tx plan per primary team. 1:1. ECT. 09/17/2021 Patient seen in psychiatric follow-up. Patient anxious ruminating dysphoric having a hard time understanding need for treatment. Somewhat perseverative difficulty with short-term memory has been responding to ECT and clozapine. Increase clozapine to 100 mg at bedtime olanzapine discontinued continue Seroquel p.r.n. try and discuss with patient's family use of clozapine Abilify long-acting injectable was given 09/18/2021 Patient seen in psychiatric follow-up. Patient seems improved on clozapine has had ECT this a.m. will hold off and see patient's memory pressing and functioning allow to rehab compensated. Difficult finding outpatient providers for the patient. He is on clozapine. Absolute neutrophils 3.9 family meeting tomorrow patient is difficulty understanding need for continued treatment Clotrimazole troches for thrush Plan Hypertension: Low sodium diet < 2G/day bp appears normotensive at time of exam. Would monitor for now. Slightly tachycardic in setting of agitation. Please add: Renal panel UA, MACR, UPCR CBC I spent minutes with the patient and/or on the patient floor today, greater than?50% of which was spent counseling/coordinating care. Reason for contiued inpatient stay Substantial Risk for: rapid decompensation
[2021-09-19 07:00] VITALS: BMI 26.7
[2021-09-19 08:10] VITALS: BP 128/81; PULSE 84; RESP 18
[2021-09-19] MEDS: Bisoprolol Fumarate 5 MG TABLET PO (08:20)
[2021-09-19] MEDS: Multivitamin TABLET 1 TAB PO (08:20)
[2021-09-19] MEDS: amLODIPine Besylate 10 MG TABLET PO (08:20)
[2021-09-19 12:57] VITALS: BP 114/65; PULSE 82; RESP 18
[2021-09-19 14:17] LABS: Alanine Aminotransferase 30 U/L (0-40); Albumin Level 4.4 g/dL (3.5-5.0); Alkaline Phosphatase 64 U/L (39-117); Anion Gap 13 (12-20); Aspartate Amino Transferase 20 U/L (5-37); Bilirubin Total 0.4 mg/dL (0.0-1.0); Blood Urea Nitrogen 25 mg/dL (9-16); Calcium 10.1 mg/dL (8.4-10.2); Carbon Dioxide 29 mmol/L (22-29); Chloride 104 mmol/L (96-108); Creatinine Clr Calc Pharmacy 65.2; Estimated Glomerular Filt Rate 45; Glucose Random 100 mg/dL (60-115); Potassium 4.3 mmol/L (3.3-5.1); Sodium 142 mmol/L (135-145); Total Protein 7.5 g/dL (6.5-8.0)
--- NOTE | 2021-09-19 16:11 | P.PNNP_ITS ---
Subjective Subjective Date of Service: 09/19/21 Interval history: Chart Reviewed. Events noted. Physical Exam Vital Signs: Vital Signs: Last Vital Signs Temp 98.4 F 09/18/21 09:49 Pulse 82 09/19/21 12:57 Resp 18 09/19/21 12:57 BP 114/65 09/19/21 12:57 Pulse Ox 98 09/18/21 09:49 BMI result Body Mass Index 26.7 Const: General: cooperative, comfortable and no acute distress HEENT: Head: Yes normocephalic and Yes atraumatic Neck: Neck: Yes no JVD Resp: Auscultation: clear to auscultation bilaterally Cardio: Jugular venous distension: no JVD Rate: regular rate Rhythm: regular rhythm Heart sounds: S1 normal heart sound present and S2 normal heart sound present GI: Auscultation: normal bowel sounds Neuro: General: tone normal and moves all extremities Extrem: General: Yes no clubbing, cyanosis or edema Objective Data Labs CBC & Chem 7: 09/18/21 12:19 09/19/21 13:55 Labs: Laboratory Results - last 24 hr 09/19/21 13:55 Sodium 142 Potassium 4.3 Chloride 104 Carbon Dioxide 29 Anion Gap 13 BUN 25 H Creatinine 1.68 H Estim Creat Clear Calc 65.2 Estimated GFR 45 Random Glucose 100 Calcium 10.1 D Total Bilirubin 0.4 AST 20 ALT 30 Alkaline Phosphatase 64 D Total Protein 7.5 Albumin 4.4 Microbiology Microbiology Results: Microbiology 08/26/21 14:30 Blood - Venous Blood Culture - Final No growth after 5 days. 08/26/21 14:30 Blood - Venous Blood Culture - Final No growth after 5 days. Procedures Date of Service Date of Service: 09/19/21 Assessment & Plan Assessment and plan (1) Hypertension: Status: Acute (2) CKD (chronic kidney disease) stage 2, GFR 60-89 ml/min: Status: Acute Plan Assessment: The patient is a 46 yo male with past medical history of Bipolar affective disorder, mixed, severe, with psychotic behavior, Hypertension, hyperlipidemia, tardive dyskinesia, and manic behavior who is being treated with ECT. He does have prior history of being on lithium as well. Nephrology was consulted to assist with mgt of hypertension, electrolytes, and risk stratification for arcadio vs CKD. #) CKD II/IIIa: I suspect based on S-Cr trend that the patient has baseline CKD II/IIIa (~ 1.6- 1.9 mg/dL) No noted hematuria on UA however trace - 2+ proteinuria which appears to be pred. albuminuria. He would benefit from low dose acei/arb for anti-proteinuric effect. He has risk factors for ckd including prior lithium exposure and hypertension. #) Hypertension: Low sodium diet < 2G/day arb low dose started. I discussed ckd with patient and need for continued surveillance and he was in agreement. We will help coordinate follow up for him at time of discharge for ckd risk stratification and htn mgt. Will continue to follow along with you. Time Spent With Patient Time: Total time spent is greater than 50% in coordination of care (as documented) at patient's floor/unit and/or counseling patient:
[2021-09-19 16:47] VITALS: BP 118/72; PULSE 87
[2021-09-19] MEDS: cloZAPine 100 MG TABLET PO (20:24)
--- NOTE | 2021-09-19 22:39 | P.PNPSI_ITS ---
Subjective Subjective Date of Service: 09/19/21 Reason For Visit: joleen Subjective Notes: Conditional Voluntary Healthcare Proxy: Yes Medical Problems Affecting Mental Status: No Interim History: Patient continues to show improvement. Seen extensively with extended family reviewed diagnosis treatment plan. Patient currently on clozapine Abilify. Patient anxious for discharge but some understanding need for continued care Mental Status Exam Mental Status Exam Narrative: r Patient Appearance: Unkempt Patient Orientation: Person, Place and Situation Level of Consciousness: Awake and Restless Patient Behavior: Talkative, Anxious, Distractible and Good Eye Contact Mood Description: Depressed, Anxious, Blunted and Apprehensive Affect Description: Constricted, Depressed, Labile and Apprehensive Patient Cognition Impaired: Yes Ability to Follow Directions: Fair Speech Pattern: Slurred, Rambling and Pressured Memory Description: Episodic Impaired and Working Impaired Thought Process: Racing, Distracted and Rumination Thought Content: positive for Perseveration, positive for Preoccupation, negative for Suicidal Ideation or negative for Homicidal Ideation Depressive Symptoms: Increased Anxiety Abnormal Motor Activity Signs and Symptoms: Restlessness Judgement: Fair Judgement and Insight: Difficulty understanding he remains ill having a difficult time tolerating more depressive and anxious feelings Diagnostics Vital Signs (24Hr): Vital Signs - 24 hr 09/19/21 08:10 09/19/21 12:57 09/19/21 16:47 Pulse Rate 84 82 87 Respiratory Rate 18 18 Blood Pressure 128/81 114/65 118/72 BMI result Body Mass Index 26.7 Labs Results: 09/18/21 12:19 09/19/21 13:55 Labs: Laboratory Results - last 48 hr 09/18/21 09/19/21 12:19 13:55 WBC 5.9 RBC 4.46 L Hgb 13.1 L Hct 39.9 L MCV 89.5 MCH 29.4 MCHC 32.8 RDW 12.8 Plt Count 265 MPV 9.6 Immature Gran % (Auto) 0.5 H Neut % (Auto) 65.6 Lymph % (Auto) 18.9 L [place] % (Auto) 10.8 Eos % (Auto) 3.7 Baso % (Auto) 0.5 Lymph # (Auto) 1.1 L [place] # (Auto) 0.6 Eos # (Auto) 0.2 Baso # (Auto) 0.0 Abs Immat Gran (auto) 0.03 Absolute Neuts (auto) 3.9 Absolute Nucleated RBC 0.000 Nucleated RBC % (auto) 0.0 Sodium 142 Potassium 4.3 Chloride 104 Carbon Dioxide 29 Anion Gap 13 BUN 25 H Creatinine 1.68 H Estim Creat Clear Calc 65.2 Estimated GFR 45 Random Glucose 100 Calcium 10.1 D Total Bilirubin 0.4 AST 20 ALT 30 Alkaline Phosphatase 64 D Total Protein 7.5 Albumin 4.4 Imaging Radiology Impressions: ITS Impressions Chest X-Ray 08/26/21 14:28 IMPRESSION: Low lung volume and nonspecific subtle bibasilar airspace disease, may represent hypoventilatory, atelectatic changes versus subtle infiltrate or combination thereof. No evidence of any dense airspace pneumonia. Medications Medications Current Medications Acetaminophen (Acetaminophen 325 Mg Tablet) 975 mg PO QID PRN PRN Reason: Mild Pain (Scale Score 1-4) Last Admin: 09/10/21 00:06 Dose: 975 mg Documented by: Al Hydroxide/Mg Hydroxide (Magnesium Hydrox/Alum Hydrox 30 Ml Oral.Susp) 30 ml PO Q6H PRN PRN Reason: Heartburn/Nausea Amlodipine Besylate (Amlodipine Besylate 10 Mg Tablet) 10 mg PO DAILY [facility]; Protocol Last Admin: 09/19/21 08:20 Dose: 10 mg Documented by: Aripiprazole (Aripiprazole Er 400 Mg Suser.Syr) 400 mg IM Q28D [facility] Last Admin: 09/17/21 11:13 Dose: 400 mg Documented by: Bisoprolol Fumarate (Bisoprolol Fumarate 5 Mg Tablet) 5 mg PO DAILY [facility] Last Admin: 09/19/21 08:20 Dose: 5 mg Documented by: Clotrimazole (Clotrimazole 10 Mg Robinson) 10 mg MUCOUS MEM 5XD [facility] Last Admin: 09/19/21 20:24 Dose: 10 mg Documented by: Clozapine (Clozapine 100 Mg Tablet) 100 mg PO BEDTIME [facility] Last Admin: 09/19/21 20:24 Dose: 100 mg Documented by: Doxycycline Hyclate (Doxycycline Hyclate 100 Mg Tablet) 100 mg PO BID [facility] Last Admin: 09/19/21 20:24 Dose: 100 mg Documented by: Loperamide HCl (Loperamide Hcl 2 Mg Capsule) 2 mg PO Q4H PRN PRN Reason: Diarrhea Last Admin: 08/27/21 12:31 Dose: 2 mg Documented by: Magnesium Hydroxide (Milk Of Magnesia 30 Ml Oral.Susp) 30 ml PO DAILY PRN PRN Reason: Constipation Last Admin: 09/16/21 02:48 Dose: 30 ml Documented by: Multivitamins/Vitamin C (Multivitamin Tablet) 1 tab PO DAILY [facility] Last Admin: 09/19/21 08:20 Dose: 1 tab Documented by: Quetiapine Fumarate (Quetiapine Fumarate 100 Mg Tablet) 100 mg PO Q4H PRN PRN Reason: Psychosis Last Admin: 09/13/21 16:55 Dose: 100 mg Documented by: Allergies Allergies Allergy/AdvReac Type Severity Reaction Status Date / Time haloperidol [From Haldol] Allergy Unknown Verified 07/22/20 03:38 Assessment & Plan Assessment & Plan (1) Hypertension: Status: Acute Code(s): I10 - Essential (primary) hypertension Assessment and Plan: Case reviewed with Nephrology asked them to make further recommendations creatinine somewhat decreased today (2) CKD (chronic kidney disease) stage 2, GFR 60-89 ml/min: Status: Acute Code(s): N18.2 - Chronic kidney disease, stage 2 (mild) Assessment and Plan: Follow-up by Nephrology encourage fluids Plan Assessment: The patient is a 46 yo male with past medical history of Bipolar affective disorder, mixed, severe, with psychotic behavior, Hypertension, hyperlipidemia, tardive dyskinesia, and manic behavior who is being treated with ECT. He does have prior history of being on lithium as well. Nephrology was consulted to assist with mgt of hypertension, electrolytes, and risk stratification for arcadio vs CKD. #) CKD II/IIIa: I suspect based on S-Cr trend that the patient has baseline CKD II/IIIa (~ 1.6- 1.9 mg/dL) No noted hematuria on UA however trace - 2+ proteinuria which appears to be pred. albuminuria. He would benefit from low dose acei/arb for anti-proteinuric effect. He has risk factors for ckd including prior lithium exposure and hypertension. #) Hypertension: Low sodium diet < 2G/day arb low dose started. I discussed ckd with patient and need for continued surveillance and he was in agreement. We will help coordinate follow up for him at time of discharge for ckd risk stratification and htn mgt. Will continue to follow along with you. NEPHROLOGY NOTE REVIEWED CASE ALSO DISCUSSED LYME TITERS POSITIVE HAS MORE THAN 5 MARKERS CASE REVIEWED WITH NEUROLOGY START DOXYCYCLINE 100 B.I.D. BIPOLAR JOLEEN WITH PSYCHOTIC FEATURES HOLD ECT FOR FEW DAYS TREATED WITH CLOZAPINE 100 MG A NC OK ABILIFY 400 MG MONTHLY INJECTION PATIENT REMAINS DISORGANIZED QUESTION JOLEEN VERSUS EFFECTS OF ECT DISCUSSION HELD WITH PATIENT AND THE REGARDING TREATMENT PROGNOSIS TREATMENT PLAN Patient remains disorganized poor short-term memory difficulty with executive functioning monitor mental state I spent minutes with the patient and/or on the patient floor today, greater than?50% of which was spent counseling/coordinating care. Reason for contiued inpatient stay Substantial Risk for: inability to function and rapid decompensation
[2021-09-20 09:00] VITALS: BP 115/82; PULSE 100; RESP 14; TEMP 36; O2SAT 98
[2021-09-20] MEDS: amLODIPine Besylate 10 MG TABLET PO (09:41)
[2021-09-20] MEDS: Multivitamin TABLET 1 TAB PO (09:41)
[2021-09-20] MEDS: Bisoprolol Fumarate 5 MG TABLET PO (09:42)
--- NOTE | 2021-09-20 13:55 | P.PNPSI_ITS ---
Subjective Subjective Date of Service: 09/20/21 Reason For Visit: joleen Subjective Notes: Conditional Voluntary Interim History: The patient was assessed at bedside. He looks more awake and oriented, still with mild rapid speech but he seems less psychotic and manic. We discussed treatment options and agreed to keep the same treatment. Mental Status Exam Mental Status Exam Patient Appearance: Appropriate Patient Orientation: Person and Situation Level of Consciousness: Awake Patient Behavior: Suspicious Mood Description: Withdrawn Affect Description: Constricted Patient Cognition Impaired: No Ability to Follow Directions: Fair Speech Pattern: Clear Hallucinations: None Delusions: Grandiose Thought Process: Distracted and Evasive Thought Content: positive for [place] Judgement: Fair Diagnostics Vital Signs (24Hr): Vital Signs - 24 hr 09/19/21 16:47 09/20/21 09:00 Temperature 96.8 F Pulse Rate 87 100 Respiratory Rate 14 Blood Pressure 118/72 115/82 Pulse Oximetry 98 BMI result Body Mass Index 26.7 Labs Results: 09/18/21 12:19 09/19/21 13:55 Labs: Laboratory Results - last 48 hr 09/19/21 13:55 Sodium 142 Potassium 4.3 Chloride 104 Carbon Dioxide 29 Anion Gap 13 BUN 25 H Creatinine 1.68 H Estim Creat Clear Calc 65.2 Estimated GFR 45 Random Glucose 100 Calcium 10.1 D Total Bilirubin 0.4 AST 20 ALT 30 Alkaline Phosphatase 64 D Total Protein 7.5 Albumin 4.4 Imaging Radiology Impressions: ITS Impressions Chest X-Ray 08/26/21 14:28 IMPRESSION: Low lung volume and nonspecific subtle bibasilar airspace disease, may represent hypoventilatory, atelectatic changes versus subtle infiltrate or combination thereof. No evidence of any dense airspace pneumonia. Medications Medications Current Medications Acetaminophen (Acetaminophen 325 Mg Tablet) 975 mg PO QID PRN PRN Reason: Mild Pain (Scale Score 1-4) Last Admin: 09/10/21 00:06 Dose: 975 mg Documented by: Al Hydroxide/Mg Hydroxide (Magnesium Hydrox/Alum Hydrox 30 Ml Oral.Susp) 30 ml PO Q6H PRN PRN Reason: Heartburn/Nausea Amlodipine Besylate (Amlodipine Besylate 10 Mg Tablet) 10 mg PO DAILY [facility]; Protocol Last Admin: 09/20/21 09:41 Dose: 10 mg Documented by: Aripiprazole (Aripiprazole Er 400 Mg Suser.Syr) 400 mg IM Q28D [facility] Last Admin: 09/17/21 11:13 Dose: 400 mg Documented by: Bisoprolol Fumarate (Bisoprolol Fumarate 5 Mg Tablet) 5 mg PO DAILY [facility] Last Admin: 09/20/21 09:42 Dose: 5 mg Documented by: Clotrimazole (Clotrimazole 10 Mg Robinson) 10 mg MUCOUS MEM 5XD [facility] Last Admin: 09/20/21 11:25 Dose: 10 mg Documented by: Clozapine (Clozapine 100 Mg Tablet) 100 mg PO BEDTIME [facility] Last Admin: 09/19/21 20:24 Dose: 100 mg Documented by: Doxycycline Hyclate (Doxycycline Hyclate 100 Mg Tablet) 100 mg PO BID [facility] Last Admin: 09/20/21 09:42 Dose: 100 mg Documented by: Loperamide HCl (Loperamide Hcl 2 Mg Capsule) 2 mg PO Q4H PRN PRN Reason: Diarrhea Last Admin: 08/27/21 12:31 Dose: 2 mg Documented by: Magnesium Hydroxide (Milk Of Magnesia 30 Ml Oral.Susp) 30 ml PO DAILY PRN PRN Reason: Constipation Last Admin: 09/16/21 02:48 Dose: 30 ml Documented by: Multivitamins/Vitamin C (Multivitamin Tablet) 1 tab PO DAILY [facility] Last Admin: 09/20/21 09:41 Dose: 1 tab Documented by: Quetiapine Fumarate (Quetiapine Fumarate 100 Mg Tablet) 100 mg PO Q4H PRN PRN Reason: Psychosis Last Admin: 09/13/21 16:55 Dose: 100 mg Documented by: Allergies Allergies Allergy/AdvReac Type Severity Reaction Status Date / Time haloperidol [From Haldol] Allergy Unknown Verified 07/22/20 03:38 Assessment & Plan Assessment & Plan (1) Hypertension: Status: Acute Code(s): I10 - Essential (primary) hypertension Assessment and Plan: Case reviewed with Nephrology asked them to make further recommendations creatinine somewhat decreased today (2) CKD (chronic kidney disease) stage 2, GFR 60-89 ml/min: Status: Acute Code(s): N18.2 - Chronic kidney disease, stage 2 (mild) Assessment and Plan: Follow-up by Nephrology encourage fluids Plan Assessment: The patient is a 46 yo male with past medical history of Bipolar affective d isorder, mixed, severe, with psychotic behavior, Hypertension, hyperlipidemia, tardive dyskinesia, and manic behavior who is being treated with ECT. He does have prior history of being on lithium as well. Nephrology was consulted to assist with mgt of hypertension, electrolytes, and risk stratification for arcadio vs CKD. #) CKD II/IIIa: I suspect based on S-Cr trend that the patient has baseline CKD II/IIIa (~ 1.6- 1.9 mg/dL) No noted hematuria on UA however trace - 2+ proteinuria which appears to be pred. albuminuria. He would benefit from low dose acei/arb for anti-proteinuric effect. He has risk factors for ckd including prior lithium exposure and hypertension. #) Hypertension: Low sodium diet < 2G/day arb low dose started. I discussed ckd with patient and need for continued surveillance and he was in agreement. We will help coordinate follow up for him at time of discharge for ckd risk stratification and htn mgt. Will continue to follow along with you. NEPHROLOGY NOTE REVIEWED CASE ALSO DISCUSSED LYME TITERS POSITIVE HAS MORE THAN 5 MARKERS CASE REVIEWED WITH NEUROLOGY START DOXYCYCLINE 100 B.I.D. BIPOLAR JOLEEN WITH PSYCHOTIC FEATURES HOLD ECT FOR FEW DAYS TREATED WITH CLOZAPINE 100 MG A NC OK ABILIFY 400 MG MONTHLY INJECTION PATIENT REMAINS DISORGANIZED QUESTION JOLEEN VERSUS EFFECTS OF ECT DISCUSSION HELD WITH PATIENT AND THE REGARDING TREATMENT PROGNOSIS TREATMENT PLAN Patient remains disorganized poor short-term memory difficulty with executive functioning monitor mental state I spent __20____ minutes with the patient and/or on the patient floor today, greater than?50% of which was spent counseling/coordinating care. Reason for contiued inpatient stay Substantial Risk for: inability to function, rapid decompensation and med/psych decompensation
[2021-09-20 19:56] VITALS: BP 126/87; PULSE 101
[2021-09-20] MEDS: cloZAPine 100 MG TABLET PO (20:15)
[2021-09-21] MEDS: Multivitamin TABLET 1 TAB PO (08:35)
[2021-09-21] MEDS: amLODIPine Besylate 10 MG TABLET PO (08:35)
[2021-09-21] MEDS: Bisoprolol Fumarate 5 MG TABLET PO (08:35)
[2021-09-21 08:36] VITALS: BP 136/87; PULSE 94; RESP 16; TEMP 36.4; O2SAT 97
[2021-09-21 16:06] VITALS: BP 126/81; PULSE 89; TEMP 37.3; O2SAT 99
--- NOTE | 2021-09-21 16:47 | P.PNPSI_ITS ---
Subjective Subjective Date of Service: 09/21/21 Reason For Visit: nallely Healthcare Proxy: Yes Interim History: Improving, in milieu, clearer in thought process, content and behavior. Positive self-mgt skills-participating in calls to family, discussions with peers, room- mate, team. No lability noted. Medication Compliance: Yes Side effects from medications: No Attending Groups: No Review of Systems Acute medical concerns: No Mental Status Exam Mental Status Exam Narrative: r Patient Appearance: Unkempt Patient Orientation: Person, Place and Situation Level of Consciousness: Awake and Restless Patient Behavior: Talkative, Anxious, Distractible and Good Eye Contact Mood Description: Depressed, Anxious, Blunted and Apprehensive Affect Description: Constricted, Depressed, Labile and Apprehensive Patient Cognition Impaired: Yes Ability to Follow Directions: Fair Speech Pattern: Slurred, Rambling and Pressured Memory Description: Episodic Impaired and Working Impaired Thought Process: Racing, Distracted and Rumination Thought Content: positive for Perseveration, positive for Preoccupation, negative for Suicidal Ideation or negative for Homicidal Ideation Depressive Symptoms: Increased Anxiety Abnormal Motor Activity Signs and Symptoms: Restlessness Judgement: Fair Judgement and Insight: Difficulty understanding he remains ill having a difficult time tolerating more depressive and anxious feelings Diagnostics Vital Signs (24Hr): Vital Signs - 24 hr 09/20/21 19:56 09/21/21 08:36 09/21/21 16:06 Temperature 97.6 F 99.1 F Pulse Rate 101 H 94 89 Respiratory Rate 16 Blood Pressure 126/87 136/87 126/81 Pulse Oximetry 97 99 BMI result Body Mass Index 26.7 Labs Results: 09/18/21 12:19 09/19/21 13:55 Imaging Radiology Impressions: ITS Impressions Chest X-Ray 08/26/21 14:28 IMPRESSION: Low lung volume and nonspecific subtle bibasilar airspace disease, may represent hypoventilatory, atelectatic changes versus subtle infiltrate or combination thereof. No evidence of any dense airspace pneumonia. Medications Medications Current Medications Acetaminophen (Acetaminophen 325 Mg Tablet) 975 mg PO QID PRN PRN Reason: Mild Pain (Scale Score 1-4) Last Admin: 09/10/21 00:06 Dose: 975 mg Documented by: Al Hydroxide/Mg Hydroxide (Magnesium Hydrox/Alum Hydrox 30 Ml Oral.Susp) 30 ml PO Q6H PRN PRN Reason: Heartburn/Nausea Amlodipine Besylate (Amlodipine Besylate 10 Mg Tablet) 10 mg PO DAILY [facility]; Protocol Last Admin: 09/21/21 08:35 Dose: 10 mg Documented by: Aripiprazole (Aripiprazole Er 400 Mg Suser.Syr) 400 mg IM Q28D [facility] Last Admin: 09/17/21 11:13 Dose: 400 mg Documented by: Bisoprolol Fumarate (Bisoprolol Fumarate 5 Mg Tablet) 5 mg PO DAILY [facility] Last Admin: 09/21/21 08:35 Dose: 5 mg Documented by: Clotrimazole (Clotrimazole 10 Mg Robinson) 10 mg MUCOUS MEM 5XD [facility] Last Admin: 09/21/21 13:36 Dose: 10 mg Documented by: Clozapine (Clozapine 100 Mg Tablet) 100 mg PO BEDTIME [facility] Last Admin: 09/20/21 20:15 Dose: 100 mg Documented by: Doxycycline Hyclate (Doxycycline Hyclate 100 Mg Tablet) 100 mg PO BID [facility] Last Admin: 09/21/21 08:35 Dose: 100 mg Documented by: Loperamide HCl (Loperamide Hcl 2 Mg Capsule) 2 mg PO Q4H PRN PRN Reason: Diarrhea Last Admin: 08/27/21 12:31 Dose: 2 mg Documented by: Magnesium Hydroxide (Milk Of Magnesia 30 Ml Oral.Susp) 30 ml PO DAILY PRN PRN Reason: Constipation Last Admin: 09/16/21 02:48 Dose: 30 ml Documented by: Multivitamins/Vitamin C (Multivitamin Tablet) 1 tab PO DAILY [facility] Last Admin: 09/21/21 08:35 Dose: 1 tab Documented by: Quetiapine Fumarate (Quetiapine Fumarate 100 Mg Tablet) 100 mg PO Q4H PRN PRN Reason: Psychosis Last Admin: 09/13/21 16:55 Dose: 100 mg Documented by: Allergies Allergies Allergy/AdvReac Type Severity Reaction Status Date / Time haloperidol [From Haldol] Allergy Unknown Verified 07/22/20 03:38 Assessment & Plan Assessment & Plan (1) Hypertension: Status: Acute Code(s): I10 - Essential (primary) hypertension Assessment and Plan: Case reviewed with Nephrology asked them to make further recommendations creatinine somewhat decreased today (2) CKD (chronic kidney disease) stage 2, GFR 60-89 ml/min: Status: Acute Code(s): N18.2 - Chronic kidney disease, stage 2 (mild) Assessment and Plan: Follow-up by Nephrology encourage fluids Plan Assessment: The patient is a 46 yo male with past medical history of Bipolar affective disorder, mixed, severe, with psychotic behavior, Hypertension, hyperlipidemia, tardive dyskinesia, and manic behavior who is being treated with ECT. He does have prior history of being on lithium as well. Nephrology was consulted to assist with mgt of hypertension, electrolytes, and risk stratification for arcadio vs CKD. #) CKD II/IIIa: I suspect based on S-Cr trend that the patient has baseline CKD II/IIIa (~ 1.6- 1.9 mg/dL) No noted hematuria on UA however trace - 2+ proteinuria which appears to be pred. albuminuria. He would benefit from low dose acei/arb for anti-proteinuric effect. He has risk factors for ckd including prior lithium exposure and hypertension. #) Hypertension: Low sodium diet < 2G/day arb low dose started. I discussed ckd with patient and need for continued surveillance and he was in agreement. We will help coordinate follow up for him at time of discharge for ckd risk stratification and htn mgt. Will continue to follow along with you. NEPHROLOGY NOTE REVIEWED CASE ALSO DISCUSSED LYME TITERS POSITIVE HAS MORE THAN 5 MARKERS CASE REVIEWED WITH NEUROLOGY START DOXYCYCLINE 100 B.I.D. BIPOLAR NALLELY WITH PSYCHOTIC FEATURES HOLD ECT FOR FEW DAYS TREATED WITH CLOZAPINE 100 MG A NC OK ABILIFY 400 MG MONTHLY INJECTION PATIENT REMAINS DISORGANIZED QUESTION NALLELY VERSUS EFFECTS OF ECT DISCUSSION HELD WITH PATIENT AND THE REGARDING TREATMENT PROGNOSIS TREATMENT PLAN Patient remains disorganized poor short-term memory difficulty with executive functioning monitor mental state 09/21/21- Continue current plan of care I spent minutes with the patient and/or on the patient floor today, greater than?50% of which was spent counseling/coordinating care. Patient educated on: therapeutic strategies Informed Consent: further education needed Reason for contiued inpatient stay Substantial Risk for: harm to self, harm to others, inability to function, rapid decompensation and med/psych decompensation
--- NOTE | 2021-09-21 19:18 | PM.EVENT ---
Event Note Date of Service: 09/21/21 Event Note: we were asked to see the pt due to finger injury. a door slammed on the pt right middle finger. he has a laceration on both dorsal and palmar region in the proximal region. Pt has no pain, and no loss of movement he has complete range of motion. no bleeding dressing was changed no indication for suture at this time advised to change dressing regularly and keep dressing clean
[2021-09-21] MEDS: cloZAPine 100 MG TABLET PO (20:54)
[2021-09-22] MEDS: amLODIPine Besylate 10 MG TABLET PO (08:37)
[2021-09-22] MEDS: Multivitamin TABLET 1 TAB PO (08:37)
[2021-09-22] MEDS: Bisoprolol Fumarate 5 MG TABLET PO (08:38)
[2021-09-22 09:00] VITALS: BP 199/77; PULSE 103; RESP 16; TEMP 36.4; O2SAT 99
[2021-09-22 10:31] VITALS: BP 132/88; PULSE 88; RESP 16
--- NOTE | 2021-09-22 10:50 | HO.PSYCHPN ---
Subjective Subjective Date of Service: 09/22/21 Reason For Visit: nallely Healthcare Proxy: Yes Interim History: Team report elevated BP this a.m. with resolution after medications and re-evaluation. Visable in milieu. Talking with family by phone. More attentive to his environment Medication Compliance: Yes Side effects from medications: No Attending Groups: No Review of Systems Acute medical concerns: No Medical Review of Systems: unchanged Mental Status Exam Mental Status Exam Narrative: r Patient Appearance: Unkempt Patient Orientation: Person, Place and Situation Level of Consciousness: Awake and Restless Patient Behavior: Talkative, Anxious, Distractible and Good Eye Contact Mood Description: Depressed, Anxious, Blunted and Apprehensive Affect Description: Constricted, Depressed, Labile and Apprehensive Patient Cognition Impaired: Yes Ability to Follow Directions: Fair Speech Pattern: Slurred, Rambling and Pressured Memory Description: Episodic Impaired and Working Impaired Thought Process: Racing, Distracted and Rumination Thought Content: positive for Perseveration, positive for Preoccupation, negative for Suicidal Ideation or negative for Homicidal Ideation Depressive Symptoms: Increased Anxiety Abnormal Motor Activity Signs and Symptoms: Restlessness Judgement: Fair Judgement and Insight: Difficulty understanding he remains ill having a difficult time tolerating more depressive and anxious feelings Diagnostics Vital Signs (24Hr): Vital Signs - 24 hr 09/21/21 16:06 09/22/21 09:00 09/22/21 10:31 Temperature 99.1 F 97.5 F Pulse Rate 89 103 H 88 Respiratory Rate 16 16 Blood Pressure 126/81 199/77 H 132/88 Pulse Oximetry 99 99 BMI result Body Mass Index 26.7 Labs Results: 09/18/21 12:19 09/19/21 13:55 Imaging Radiology Impressions: ITS Impressions Chest X-Ray 08/26/21 14:28 IMPRESSION: Low lung volume and nonspecific subtle bibasilar airspace disease, may represent hypoventilatory, atelectatic changes versus subtle infiltrate or combination thereof. No evidence of any dense airspace pneumonia. Medications Medications Current Medications Acetaminophen (Acetaminophen 325 Mg Tablet) 975 mg PO QID PRN PRN Reason: Mild Pain (Scale Score 1-4) Last Admin: 09/10/21 00:06 Dose: 975 mg Documented by: Al Hydroxide/Mg Hydroxide (Magnesium Hydrox/Alum Hydrox 30 Ml Oral.Susp) 30 ml PO Q6H PRN PRN Reason: Heartburn/Nausea Amlodipine Besylate (Amlodipine Besylate 10 Mg Tablet) 10 mg PO DAILY [facility]; Protocol Last Admin: 09/22/21 08:37 Dose: 10 mg Documented by: Aripiprazole (Aripiprazole Er 400 Mg Suser.Syr) 400 mg IM Q28D [facility] Last Admin: 09/17/21 11:13 Dose: 400 mg Documented by: Bisoprolol Fumarate (Bisoprolol Fumarate 5 Mg Tablet) 5 mg PO DAILY [facility] Last Admin: 09/22/21 08:38 Dose: 5 mg Documented by: Clotrimazole (Clotrimazole 10 Mg Robinson) 10 mg MUCOUS MEM 5XD [facility] Last Admin: 09/22/21 10:33 Dose: 10 mg Documented by: Clozapine (Clozapine 100 Mg Tablet) 100 mg PO BEDTIME [facility] Last Admin: 09/21/21 20:54 Dose: 100 mg Documented by: Doxycycline Hyclate (Doxycycline Hyclate 100 Mg Tablet) 100 mg PO BID [facility] Last Admin: 09/22/21 08:37 Dose: 100 mg Documented by: Loperamide HCl (Loperamide Hcl 2 Mg Capsule) 2 mg PO Q4H PRN PRN Reason: Diarrhea Last Admin: 08/27/21 12:31 Dose: 2 mg Documented by: Magnesium Hydroxide (Milk Of Magnesia 30 Ml Oral.Susp) 30 ml PO DAILY PRN PRN Reason: Constipation Last Admin: 09/16/21 02:48 Dose: 30 ml Documented by: Multivitamins/Vitamin C (Multivitamin Tablet) 1 tab PO DAILY [facility] Last Admin: 09/22/21 08:37 Dose: 1 tab Documented by: Quetiapine Fumarate (Quetiapine Fumarate 100 Mg Tablet) 100 mg PO Q4H PRN PRN Reason: Psychosis Last Admin: 09/13/21 16:55 Dose: 100 mg Documented by: Allergies Allergies Allergy/AdvReac Type Severity Reaction Status Date / Time haloperidol [From Haldol] Allergy Unknown Verified 07/22/20 03:38 Assessment & Plan Assessment & Plan (1) Hypertension: Status: Acute Code(s): I10 - Essential (primary) hypertension Assessment and Plan: Case reviewed with Nephrology asked them to make further recommendations creatinine somewhat decreased today (2) CKD (chronic kidney disease) stage 2, GFR 60-89 ml/min: Status: Acute Code(s): N18.2 - Chronic kidney disease, stage 2 (mild) Assessment and Plan: Follow-up by Nephrology encourage fluids Plan Assessment: The patient is a 46 yo male with past medical history of Bipolar affective disorder, mixed, severe, with psychotic behavior, Hypertension, hyperlipidemia, tardive dyskinesia, and manic behavior who is being treated with ECT. He does have prior history of being on lithium as well. Nephrology was consulted to assist with mgt of hypertension, electrolytes, and risk stratification for arcadio vs CKD. #) CKD II/IIIa: I suspect based on S-Cr trend that the patient has baseline CKD II/IIIa (~ 1.6-1.9 mg/dL) No noted hematuria on UA however trace - 2+ proteinuria which appears to be pred. albuminuria. He would benefit from low dose acei/arb for anti-proteinuric effect. He has risk factors for ckd including prior lithium exposure and hypertension. #) Hypertension: Low sodium diet < 2G/day arb low dose started. I discussed ckd with patient and need for continued surveillance and he was in agreement. We will help coordinate follow up for him at time of discharge for ckd risk stratification and htn mgt. Will continue to follow along with you. NEPHROLOGY NOTE REVIEWED CASE ALSO DISCUSSED LYME TITERS POSITIVE HAS MORE THAN 5 MARKERS CASE REVIEWED WITH NEUROLOGY START DOXYCYCLINE 100 B.I.D. BIPOLAR NALLELY WITH PSYCHOTIC FEATURES HOLD ECT FOR FEW DAYS TREATED WITH CLOZAPINE 100 MG A NC OK ABILIFY 400 MG MONTHLY INJECTION PATIENT REMAINS DISORGANIZED QUESTION NALLELY VERSUS EFFECTS OF ECT DISCUSSION HELD WITH PATIENT AND THE REGARDING TREATMENT PROGNOSIS TREATMENT PLAN Patient remains disorganized poor short-term memory difficulty with executive functioning monitor mental state 09/22/21: Continue plan of care. I spent minutes with the patient and/or on the patient floor today, greater than?50% of which was spent counseling/coordinating care. Patient educated on: therapeutic strategies Informed Consent: further education needed Reason for contiued inpatient stay Substantial Risk for: harm to self, harm to others, inability to function and rapid decompensation
[2021-09-22 20:00] VITALS: BP 115/67; PULSE 84; TEMP 37.1; O2SAT 93
[2021-09-22] MEDS: cloZAPine 100 MG TABLET PO (21:26)
[2021-09-23 09:00] VITALS: BP 138/89; PULSE 92; TEMP 36.4; O2SAT 97
[2021-09-23] MEDS: Multivitamin TABLET 1 TAB PO (09:00)
[2021-09-23] MEDS: amLODIPine Besylate 10 MG TABLET PO (09:00)
[2021-09-23] MEDS: Bisoprolol Fumarate 5 MG TABLET PO (09:00)
[2021-09-23 13:23] VITALS: BP 108/60; PULSE 75; TEMP 36.8; O2SAT 96
--- NOTE | 2021-09-23 14:37 | HO.PSYCHPN ---
Subjective Subjective Date of Service: 09/23/21 Reason For Visit: nallely Subjective Notes: Conditional Voluntary Guardianship: No Medical Problems Affecting Mental Status: No Interim History: The nursing staff reported that the patient has been compliant with treatment. He was seen visible in the unit pacing in the hallway with minimal participation in groups. Also, the staff reported the patient asked to be shaved and he looks better on his ADL less but still with noticeable psychomotor retardation and a sporadic disorganized behavior. On interview the patient reported that he wants to be discharged as soon as possible. He is still internally preoccupied with delayed response, probably residual catatonia. On physical exam there was noticeable EPS. He agreed to do an ECT next Thursday and we will discuss discharge planning after next Thursday ECT. the patient is very well known by this prescriber and he is not still at his baseline. Medication Compliance: Yes Side effects from medications: Yes ( EPS) Attending Groups: Intermittent Review of Systems Acute medical concerns: No Medical Review of Systems: unchanged Mental Status Exam Mental Status Exam Patient Appearance: Appropriate Patient Orientation: Person Level of Consciousness: Alert Patient Behavior: Guarded and Suspicious Mood Description: Suspicious and Withdrawn Affect Description: Labile Patient Cognition Impaired: No Ability to Follow Directions: Good Speech Pattern: Clear Hallucinations: None Delusions: Paranoid Ideation Thought Process: Distracted and Slowed Thinking Thought Content: positive for Thought Blocking Judgement: Fair Diagnostics Vital Signs (24Hr): Vital Signs - 24 hr 09/22/21 20:00 09/23/21 09:00 09/23/21 13:23 Temperature 98.7 F 97.5 F 98.3 F Pulse Rate 84 92 75 Blood Pressure 115/67 138/89 108/60 Pulse Oximetry 93 97 96 BMI result Body Mass Index 26.7 Labs Results: 09/18/21 12:19 09/19/21 13:55 Imaging Radiology Impressions: ITS Impressions Chest X-Ray 08/26/21 14:28 IMPRESSION: Low lung volume and nonspecific subtle bibasilar airspace disease, may represent hypoventilatory, atelectatic changes versus subtle infiltrate or combination thereof. No evidence of any dense airspace pneumonia. Medications Medications Current Medications Acetaminophen (Acetaminophen 325 Mg Tablet) 975 mg PO QID PRN PRN Reason: Mild Pain (Scale Score 1-4) Last Admin: 09/10/21 00:06 Dose: 975 mg Documented by: Al Hydroxide/Mg Hydroxide (Magnesium Hydrox/Alum Hydrox 30 Ml Oral.Susp) 30 ml PO Q6H PRN PRN Reason: Heartburn/Nausea Amlodipine Besylate (Amlodipine Besylate 10 Mg Tablet) 10 mg PO DAILY [facility]; Protocol Last Admin: 09/23/21 09:00 Dose: 10 mg Documented by: Aripiprazole (Aripiprazole Er 400 Mg Suser.Syr) 400 mg IM Q28D [facility] Last Admin: 09/17/21 11:13 Dose: 400 mg Documented by: Bisoprolol Fumarate (Bisoprolol Fumarate 5 Mg Tablet) 5 mg PO DAILY [facility] Last Admin: 09/23/21 09:00 Dose: 5 mg Documented by: Clotrimazole (Clotrimazole 10 Mg Robinson) 10 mg MUCOUS MEM 5XD [facility] Last Admin: 09/23/21 13:24 Dose: 10 mg Documented by: Clozapine (Clozapine 100 Mg Tablet) 100 mg PO BEDTIME [facility] Last Admin: 09/22/21 21:26 Dose: 100 mg Documented by: Doxycycline Hyclate (Doxycycline Hyclate 100 Mg Tablet) 100 mg PO BID [facility] Last Admin: 09/23/21 09:00 Dose: 100 mg Documented by: Loperamide HCl (Loperamide Hcl 2 Mg Capsule) 2 mg PO Q4H PRN PRN Reason: Diarrhea Last Admin: 08/27/21 12:31 Dose: 2 mg Documented by: Magnesium Hydroxide (Milk Of Magnesia 30 Ml Oral.Susp) 30 ml PO DAILY PRN PRN Reason: Constipation Last Admin: 09/16/21 02:48 Dose: 30 ml Documented by: Multivitamins/Vitamin C (Multivitamin Tablet) 1 tab PO DAILY [facility] Last Admin: 09/23/21 09:00 Dose: 1 tab Documented by: Quetiapine Fumarate (Quetiapine Fumarate 100 Mg Tablet) 100 mg PO Q4H PRN PRN Reason: Psychosis Last Admin: 09/13/21 16:55 Dose: 100 mg Documented by: Allergies Allergies Allergy/AdvReac Type Severity Reaction Status Date / Time haloperidol [From Haldol] Allergy Unknown Verified 07/22/20 03:38 Assessment & Plan Assessment & Plan (1) Hypertension: Status: Acute Code(s): I10 - Essential (primary) hypertension Assessment and Plan: Case reviewed with Nephrology asked them to make further recommendations creatinine somewhat decreased today (2) CKD (chronic kidney disease) stage 2, GFR 60-89 ml/min: Status: Acute Code(s): N18.2 - Chronic kidney disease, stage 2 (mild) Assessment and Plan: Follow-up by Nephrology encourage fluids Plan Assessment: The patient is a 46 yo male with past medical history of Bipolar affective disorder, mixed, severe, with psychotic behavior, Hypertension, hyperlipidemia, tardive dyskinesia, and manic behavior who is being treated with ECT. He does have prior history of being on lithium as well. Nephrology was consulted to assist with mgt of hypertension, electrolytes, and risk stratification for arcadio vs CKD. #) CKD II/IIIa: I suspect based on S-Cr trend that the patient has baseline CKD II/IIIa (~ 1.6-1.9 mg/dL) No noted hematuria on UA however trace - 2+ proteinuria which appears to be pred. albuminuria. He would benefit from low dose acei/arb for anti-proteinuric effect. He has risk factors for ckd including prior lithium exposure and hypertension. #) Hypertension: Low sodium diet < 2G/day arb low dose started. I discussed ckd with patient and need for continued surveillance and he was in agreement. We will help coordinate follow up for him at time of discharge for ckd risk stratification and htn mgt. Will continue to follow along with you. NEPHROLOGY NOTE REVIEWED CASE ALSO DISCUSSED LYME TITERS POSITIVE HAS MORE THAN 5 MARKERS CASE REVIEWED WITH NEUROLOGY START DOXYCYCLINE 100 B.I.D. BIPOLAR NALLELY WITH PSYCHOTIC FEATURES HOLD ECT FOR FEW DAYS TREATED WITH CLOZAPINE 100 MG A NC OK ABILIFY 400 MG MONTHLY INJECTION PATIENT REMAINS DISORGANIZED QUESTION NALLELY VERSUS EFFECTS OF ECT DISCUSSION HELD WITH PATIENT AND THE REGARDING TREATMENT PROGNOSIS TREATMENT PLAN Patient remains disorganized poor short-term memory difficulty with executive functioning monitor mental state 09/23/2021 Plan 1. The patient looks less disoriented and we will schedule ECT for next Thursday. 2. Continue clozapine and Abilify. 3. We will not increase anticholinergics for EPS since it can worsen his cognition. 4. We will discuss discharge planning after the ECT on Thursday. I spent __20____ minutes with the patient and/or on the patient floor today, greater than?50% of which was spent counseling/coordinating care. Informed Consent: further education needed Reason for contiued inpatient stay Substantial Risk for: inability to function, rapid decompensation and med/psych decompensation
[2021-09-23 16:25] VITALS: BP 118/78; PULSE 101; TEMP 36.3; O2SAT 97
[2021-09-23] MEDS: cloZAPine 100 MG TABLET PO (20:52)
[2021-09-24] MEDS: Multivitamin TABLET 1 TAB PO (08:29)
[2021-09-24] MEDS: amLODIPine Besylate 10 MG TABLET PO (08:29)
[2021-09-24] MEDS: Bisoprolol Fumarate 5 MG TABLET PO (08:29)
[2021-09-24 08:31] VITALS: BP 109/71; PULSE 105; RESP 18; TEMP 36.4; O2SAT 97
--- NOTE | 2021-09-24 16:11 | HO.PSYCHPN ---
Subjective Subjective Date of Service: 09/24/21 Reason For Visit: nallely Subjective Notes: Conditional Voluntary Interim History: the nursing staff reported the patient has been compliant with medications. He was seen pacing in the hallway sporadically. On interview the patient denies new symptoms, he does not want to have more ECT at this moment. His symptoms have improved but still he has some residual symptoms of catatonia and nallely. Even though, he is much better and most likely close to baseline. Mental Status Exam Mental Status Exam Patient Appearance: Well Grooomed Patient Orientation: Person Level of Consciousness: Awake Patient Behavior: Cooperative Mood Description: Withdrawn Affect Description: Labile Patient Cognition Impaired: No Ability to Follow Directions: Good Speech Pattern: Clear Hallucinations: None Delusions: Not Present Thought Process: Linear Thought Content: positive for Poverty of Content Judgement: Fair Diagnostics Vital Signs (24Hr): Vital Signs - 24 hr 09/23/21 16:25 09/24/21 08:31 Temperature 97.4 F 97.6 F Pulse Rate 101 H 105 H Respiratory Rate 18 Blood Pressure 118/78 109/71 Pulse Oximetry 97 97 BMI result Body Mass Index 26.7 Labs Results: 09/18/21 12:19 09/19/21 13:55 Imaging Radiology Impressions: ITS Impressions Chest X-Ray 08/26/21 14:28 IMPRESSION: Low lung volume and nonspecific subtle bibasilar airspace disease, may represent hypoventilatory, atelectatic changes versus subtle infiltrate or combination thereof. No evidence of any dense airspace pneumonia. Medications Medications Current Medications Acetaminophen (Acetaminophen 325 Mg Tablet) 975 mg PO QID PRN PRN Reason: Mild Pain (Scale Score 1-4) Last Admin: 09/10/21 00:06 Dose: 975 mg Documented by: Al Hydroxide/Mg Hydroxide (Magnesium Hydrox/Alum Hydrox 30 Ml Oral.Susp) 30 ml PO Q6H PRN PRN Reason: Heartburn/Nausea Amlodipine Besylate (Amlodipine Besylate 10 Mg Tablet) 10 mg PO DAILY [facility]; Protocol Last Admin: 09/24/21 08:29 Dose: 10 mg Documented by: Aripiprazole (Aripiprazole Er 400 Mg Suser.Syr) 400 mg IM Q28D [facility] Last Admin: 09/17/21 11:13 Dose: 400 mg Documented by: Bisoprolol Fumarate (Bisoprolol Fumarate 5 Mg Tablet) 5 mg PO DAILY [facility] Last Admin: 09/24/21 08:29 Dose: 5 mg Documented by: Clotrimazole (Clotrimazole 10 Mg Robinson) 10 mg MUCOUS MEM 5XD [facility] Last Admin: 09/24/21 14:05 Dose: 10 mg Documented by: Clozapine (Clozapine 100 Mg Tablet) 100 mg PO BEDTIME [facility] Last Admin: 09/23/21 20:52 Dose: 100 mg Documented by: Doxycycline Hyclate (Doxycycline Hyclate 100 Mg Tablet) 100 mg PO BID [facility] Last Admin: 09/24/21 08:29 Dose: 100 mg Documented by: Loperamide HCl (Loperamide Hcl 2 Mg Capsule) 2 mg PO Q4H PRN PRN Reason: Diarrhea Last Admin: 08/27/21 12:31 Dose: 2 mg Documented by: Magnesium Hydroxide (Milk Of Magnesia 30 Ml Oral.Susp) 30 ml PO DAILY PRN PRN Reason: Constipation Last Admin: 09/16/21 02:48 Dose: 30 ml Documented by: Multivitamins/Vitamin C (Multivitamin Tablet) 1 tab PO DAILY [facility] Last Admin: 09/24/21 08:29 Dose: 1 tab Documented by: Quetiapine Fumarate (Quetiapine Fumarate 100 Mg Tablet) 100 mg PO Q4H PRN PRN Reason: Psychosis Last Admin: 09/13/21 16:55 Dose: 100 mg Documented by: Allergies Allergies Allergy/AdvReac Type Severity Reaction Status Date / Time haloperidol [From Haldol] Allergy Unknown Verified 07/22/20 03:38 Assessment & Plan Assessment & Plan (1) Hypertension: Status: Acute Code(s): I10 - Essential (primary) hypertension Assessment and Plan: Case reviewed with Nephrology asked them to make further recommendations creatinine somewhat decreased today (2) CKD (chronic kidney disease) stage 2, GFR 60-89 ml/min: Status: Acute Code(s): N18.2 - Chronic kidney disease, stage 2 (mild) Assessment and Plan: Follow-up by Nephrology encourage fluids Plan Assessment: The patient is a 46 yo male with past medical history of Bipolar affective disorder, mixed, severe, with psychotic behavior, Hypertension, hyperlipidemia, tardive dyskinesia, and manic behavior who is being treated with ECT. He does have prior history of being on lithium as well. Nephrology was consulted to assist with mgt of hypertension, electrolytes, and risk stratification for arcadio vs CKD. #) CKD II/IIIa: I suspect based on S-Cr trend that the patient has baseline CKD II/IIIa (~ 1.6-1.9 mg/dL) No noted hematuria on UA however trace - 2+ proteinuria which appears to be pred. albuminuria. He would benefit from low dose acei/arb for anti-proteinuric effect. He has risk factors for ckd including prior lithium exposure and hypertension. #) Hypertension: Low sodium diet < 2G/day arb low dose started. I discussed ckd with patient and need for continued surveillance and he was in agreement. We will help coordinate follow up for him at time of discharge for ckd risk stratification and htn mgt. Will continue to follow along with you. NEPHROLOGY NOTE REVIEWED CASE ALSO DISCUSSED LYME TITERS POSITIVE HAS MORE THAN 5 MARKERS CASE REVIEWED WITH NEUROLOGY START DOXYCYCLINE 100 B.I.D. BIPOLAR NALLELY WITH PSYCHOTIC FEATURES HOLD ECT FOR FEW DAYS TREATED WITH CLOZAPINE 100 MG A NC OK ABILIFY 400 MG MONTHLY INJECTION PATIENT REMAINS DISORGANIZED QUESTION NALLELY VERSUS EFFECTS OF ECT DISCUSSION HELD WITH PATIENT AND THE REGARDING TREATMENT PROGNOSIS TREATMENT PLAN Patient remains disorganized poor short-term memory difficulty with executive functioning monitor mental state 09/23/2021 Plan 1. The patient looks less disoriented and we will schedule ECT for next Thursday. Later the patient refused ECT 2. Continue clozapine and Abilify. 3. We will not increase anticholinergics for EPS since it can worsen his cognition. 4. We will discuss discharge planning for Thursday. I spent ___20___ minutes with the patient and/or on the patient floor today, greater than?50% of which was spent counseling/coordinating care. Reason for contiued inpatient stay Substantial Risk for: inability to function, rapid decompensation and med/psych decompensation
[2021-09-24 18:00] VITALS: BP 136/85; PULSE 89
[2021-09-24] MEDS: cloZAPine 100 MG TABLET PO (18:27)
[2021-09-25] VITALS (10 sets, daily range): BP systolic 128–168; BP diastolic 76–89; PULSE 67–100; RESP 16–20; TEMP 36.3–36.7; O2SAT 95–100
--- NOTE | 2021-09-25 06:41 | HO.ANESPROP2 ---
[facility] Active Problems Active Problems: All Active Problems (Updated 09/19/21 @ 16:13 by Aquiles Pavon MD) CKD (chronic kidney disease) stage 2, GFR 60-89 ml/min (Acute) Physical exam (Acute) Bipolar affective disorder, mixed, severe, with psychotic behavior (Acute) Bipolar affective, manic, full remis (Acute) Hypertension (Acute) Hyperlipidemia (Acute) Dyskinesia, tardive (Acute) Manic behavior (Acute) Rash (Acute) Past Medical History Medical History HTN (hypertension) Kidney problem Functional capacity: independent ambulation Family History Family history of problems with anesthesia: No Surgical History History of Problems with Anesthesia: No Social History Social History Household Members: Spouse Household Members Other:: Housing: House Do you presently have visiting nurse or other home services: No Unable to assess alcohol history related to: Unknown Patient Tobacco Use Status: Tobacco use Unknown Second Hand Smoke Exposure: No service: No Sexual orientation: Straight/Heterosexual Meds Allergies Allergy/AdvReac Type Severity Reaction Status Date / Time haloperidol [From Haldol] Allergy Unknown Verified 07/22/20 03:38 Active Medications: Current Medications Acetaminophen (Acetaminophen 325 Mg Tablet) 975 mg PO QID PRN PRN Reason: Mild Pain (Scale Score 1-4) Last Admin: 09/10/21 00:06 Dose: 975 mg Al Hydroxide/Mg Hydroxide (Magnesium Hydrox/Alum Hydrox 30 Ml Oral.Susp) 30 ml PO Q6H PRN PRN Reason: Heartburn/Nausea Amlodipine Besylate (Amlodipine Besylate 10 Mg Tablet) 10 mg PO DAILY [facility]; Protocol Last Admin: 09/24/21 08:29 Dose: 10 mg Aripiprazole (Aripiprazole Er 400 Mg Suser.Syr) 400 mg IM Q28D [facility] Last Admin: 09/17/21 11:13 Dose: 400 mg Bisoprolol Fumarate (Bisoprolol Fumarate 5 Mg Tablet) 5 mg PO DAILY [facility] Last Admin: 09/24/21 08:29 Dose: 5 mg Clotrimazole (Clotrimazole 10 Mg Robinson) 10 mg MUCOUS MEM 5XD [facility] Last Admin: 09/24/21 20:10 Dose: 10 mg Clozapine (Clozapine 100 Mg Tablet) 100 mg PO BEDTIME [facility] Last Admin: 09/24/21 18:27 Dose: 100 mg Doxycycline Hyclate (Doxycycline Hyclate 100 Mg Tablet) 100 mg PO BID [facility] Last Admin: 09/24/21 18:27 Dose: 100 mg Loperamide HCl (Loperamide Hcl 2 Mg Capsule) 2 mg PO Q4H PRN PRN Reason: Diarrhea Last Admin: 08/27/21 12:31 Dose: 2 mg Magnesium Hydroxide (Milk Of Magnesia 30 Ml Oral.Susp) 30 ml PO DAILY PRN PRN Reason: Constipation Last Admin: 09/16/21 02:48 Dose: 30 ml Multivitamins/Vitamin C (Multivitamin Tablet) 1 tab PO DAILY [facility] Last Admin: 09/24/21 08:29 Dose: 1 tab Quetiapine Fumarate (Quetiapine Fumarate 100 Mg Tablet) 100 mg PO Q4H PRN PRN Reason: Psychosis Last Admin: 09/13/21 16:55 Dose: 100 mg Home Medications Medication Instructions Recorded Confirmed Last Taken Type acetaminophen 500 mg tablet 1,000 mg PO QID PRN Mild Pain 08/16/21 08/16/21 Unknown History (Tylenol Extra Strength) (Scale Score 1-4) amlodipine 10 mg tablet 1 tab PO DAILY 08/16/21 08/16/21 Unknown History aripiprazole 400 mg intramuscular 400 mg IM QMONTH 08/16/21 08/16/21 Unknown History suspension,extended release (Abilify Maintena) bisoprolol 10 1 tab PO DAILY 08/16/21 08/16/21 Unknown History mg-hydrochlorothiazide 6.25 mg tablet multivitamin 1 tab PO DAILY 08/16/21 08/16/21 Unknown History vitamin B complex 1 tab PO DAILY 08/16/21 08/16/21 Unknown History Exam Exam Date and Time: September 25, 2021 0641 Height,Weight and Vital Signs: Height 6 ft 2 in Weight 94.6 kg Last Vital Signs Temp 97.6 F 09/24/21 08:31 Pulse 89 09/24/21 18:00 Resp 18 09/24/21 08:31 BP 136/85 09/24/21 18:00 Pulse Ox 97 09/24/21 08:31 O2 Del Method 09/24/21 08:31 O2 Flow Rate 2 09/18/21 08:40 Pertinent Lab Results Pertinent Lab Results: Laboratory Tests 08/16/21 08/16/21 08/16/21 16:05 16:42 16:42 WBC RBC Hgb Hct MCV MCH MCHC RDW Plt Count MPV Immature Gran % (Auto) Neut % (Auto) Lymph % (Auto) [place] % (Auto) Eos % (Auto) Baso % (Auto) Lymph # (Auto) [place] # (Auto) Eos # (Auto) Baso # (Auto) Abs Immat Gran (auto) Absolute Neuts (auto) Absolute Nucleated RBC Nucleated RBC % (auto) ESR Sodium Potassium Chloride Carbon Dioxide Anion Gap BUN Creatinine Estim Creat Clear Calc Estimated GFR Random Glucose Fasting Glucose Estimat Average Glucose Hemoglobin A1c % Calcium Magnesium Iron TIBC % Saturation Unsat Iron Binding Total Bilirubin Direct Bilirubin AST ALT Alkaline Phosphatase Ammonia Lactate Dehydrogenase Total Creatine Kinase Total Protein Albumin Triglycerides Cholesterol LDL Cholesterol, Calc HDL Cholesterol Vitamin B12 Folate TSH Urine Color YELLOW Urine Appearance CLEAR Urine pH 6.0 Ur Specific [place] 1.010 Urine Protein 2+ H Urine Glucose (UA) NEG Urine Ketones NEG Urine Blood 2+ H Urine Nitrite NEG Ur Leukocyte Esterase NEG Urine RBC 5-9 H Urine WBC 0 Ur Squamous Epith Cells NONE Urine Bacteria NONE Urine Mucus U Random Total Protein Urine Creatinine Urine Microalbumin Microalb/Creat Ratio Protein/Creatinin Ratio Urine Opiates Screen Not Detected Urine Fentanyl Screen Not Detected Ur Barbiturates Screen Not Detected Valproic Acid Ur Phencyclidine Scrn Not Detected Ur Amphetamines Screen Not Detected U Benzodiazepines Scrn Not Detected Urine Cocaine Screen Not Detected U Marijuana (THC) Screen Not Detected Ethyl Alcohol Rheumatoid Factor MARLEN Screen MARLEN Titer MARLEN Titer 2 MARLEN Titer 3 MARLEN Pattern MARLEN Pattern 2 MARLEN Pattern 3 Lyme Screen IgG & IgM Lyme Progressive Test Lyme IgG 18 kDa Band Lyme IgG 23 kDa Band Lyme IgG 28 kDa Band Lyme IgG 30 kDa Band Lyme IgG 45 kDa Band Lyme IgG 58 kDa Band Lyme IgG 66 kDa Band Lyme IgG 93 kDa Band Lyme IgG Ab (Immblot) Lyme IgM 23 kDa Band Lyme IgM 39 kDa Band Lyme IgM 41 kDa Band Lyme IgM Interpretaton COVID-19 (URI) Negative COVID-19 Clin Com See Note Influenza Type A (PCR) Influenza Type B (PCR) RSV RNA Qual (PCR) SARS-CoV-2 RNA (RT-PCR) 08/16/21 08/16/21 08/16/21 16:51 16:51 16:51 WBC 7.8 RBC 4.83 Hgb 14.8 Hct 42.1 MCV 87.2 MCH 30.6 MCHC 35.2 RDW 12.7 Plt Count 226 MPV 9.3 L Immature Gran % (Auto) 0.4 Neut % (Auto) 72.1 Lymph % (Auto) 15.1 L [place] % (Auto) 8.5 Eos % (Auto) 3.5 Baso % (Auto) 0.4 Lymph # (Auto) 1.2 [place] # (Auto) 0.7 Eos # (Auto) 0.3 Baso # (Auto) 0.0 Abs Immat Gran (auto) 0.03 Absolute Neuts (auto) 5.6 Absolute Nucleated RBC 0.000 Nucleated RBC % (auto) 0.0 ESR Sodium 138 Potassium 3.9 Chloride 102 Carbon Dioxide 24 Anion Gap 16 BUN 16 Creatinine 1.49 H Estim Creat Clear Calc 80.2 Estimated GFR 51 Random Glucose 117 H Fasting Glucose Estimat Average Glucose Hemoglobin A1c % Calcium 10.1 D Magnesium Iron TIBC % Saturation Unsat Iron Binding Total Bilirubin 0.7 Direct Bilirubin AST 47 H D ALT 63 H Alkaline Phosphatase 56 Ammonia Lactate Dehydrogenase Total Creatine Kinase Total Protein 8.2 H D Albumin 4.9 D Triglycerides Cholesterol LDL Cholesterol, Calc HDL Cholesterol Vitamin B12 Folate TSH Urine Color Urine Appearance Urine pH Ur Specific [place] Urine Protein Urine Glucose (UA) Urine Ketones Urine Blood Urine Nitrite Ur Leukocyte Esterase Urine RBC Urine WBC Ur Squamous Epith Cells Urine Bacteria Urine Mucus U Random Total Protein Urine Creatinine Urine Microalbumin Microalb/Creat Ratio Protein/Creatinin Ratio Urine Opiates Screen Urine Fentanyl Screen Ur Barbiturates Screen Valproic Acid Ur Phencyclidine Scrn Ur Amphetamines Screen U Benzodiazepines Scrn Urine Cocaine Screen U Marijuana (THC) Screen Ethyl Alcohol < 10 Rheumatoid Factor MARLEN Screen MARLEN Titer MARLEN Titer 2 MARLEN Titer 3 MARLEN Pattern MARLEN Pattern 2 MARLEN Pattern 3 Lyme Screen IgG & IgM Lyme Progressive Test Lyme IgG 18 kDa Band Lyme IgG 23 kDa Band Lyme IgG 28 kDa Band Lyme IgG 30 kDa Band Lyme IgG 45 kDa Band Lyme IgG 58 kDa Band Lyme IgG 66 kDa Band Lyme IgG 93 kDa Band Lyme IgG Ab (Immblot) Lyme IgM 23 kDa Band Lyme IgM 39 kDa Band Lyme IgM 41 kDa Band Lyme IgM Interpretaton COVID-19 (URI) COVID-19 Clin Com Influenza Type A (PCR) Influenza Type B (PCR) RSV RNA Qual (PCR) SARS-CoV-2 RNA (RT-PCR) 08/17/21 08/17/21 08/17/21 06:42 06:42 06:42 WBC RBC Hgb Hct MCV MCH MCHC RDW Plt Count MPV Immature Gran % (Auto) Neut % (Auto) Lymph % (Auto) [place] % (Auto) Eos % (Auto) Baso % (Auto) Lymph # (Auto) [place] # (Auto) Eos # (Auto) Baso # (Auto) Abs Immat Gran (auto) Absolute Neuts (auto) Absolute Nucleated RBC Nucleated RBC % (auto) ESR Sodium 138 Potassium 3.9 Chloride 102 Carbon Dioxide 24 Anion Gap 16 BUN 12 Creatinine 1.47 H Estim Creat Clear Calc 81.3 Estimated GFR 52 Random Glucose Fasting Glucose 112 H Estimat Average Glucose 97 Hemoglobin A1c % 5.0 Calcium 10.2 Magnesium Iron TIBC % Saturation Unsat Iron Binding Total Bilirubin 1.2 H Direct Bilirubin AST 48 H ALT 65 H Alkaline Phosphatase 56 Ammonia Lactate Dehydrogenase Total Creatine Kinase Total Protein 8.5 H Albumin 4.9 Triglycerides 133 Cholesterol 226 D LDL Cholesterol, Calc 152 HDL Cholesterol 48 D Vitamin B12 558 Folate > 20.0 TSH 1.87 Urine Color Urine Appearance Urine pH Ur Specific [place] Urine Protein Urine Glucose (UA) Urine Ketones Urine Blood Urine Nitrite Ur Leukocyte Esterase Urine RBC Urine WBC Ur Squamous Epith Cells Urine Bacteria Urine Mucus U Random Total Protein Urine Creatinine Urine Microalbumin Microalb/Creat Ratio Protein/Creatinin Ratio Urine Opiates Screen Urine Fentanyl Screen Ur Barbiturates Screen Valproic Acid Ur Phencyclidine Scrn Ur Amphetamines Screen U Benzodiazepines Scrn Urine Cocaine Screen U Marijuana (THC) Screen Ethyl Alcohol Rheumatoid Factor MARLEN Screen MARLEN Titer MARLEN Titer 2 MARLEN Titer 3 MARLEN Pattern MARLEN Pattern 2 MARLEN Pattern 3 Lyme Screen IgG & IgM Lyme Progressive Test Lyme IgG 18 kDa Band Lyme IgG 23 kDa Band Lyme IgG 28 kDa Band Lyme IgG 30 kDa Band Lyme IgG 45 kDa Band Lyme IgG 58 kDa Band Lyme IgG 66 kDa Band Lyme IgG 93 kDa Band Lyme IgG Ab (Immblot) Lyme IgM 23 kDa Band Lyme IgM 39 kDa Band Lyme IgM 41 kDa Band Lyme IgM Interpretaton COVID-19 (URI) COVID-19 Clin Com Influenza Type A (PCR) Influenza Type B (PCR) RSV RNA Qual (PCR) SARS-CoV-2 RNA (RT-PCR) 08/24/21 08/24/21 08/25/21 07:19 07:19 17:19 WBC 5.9 RBC 4.04 L Hgb 12.2 L Hct 35.1 L MCV 86.9 MCH 30.2 MCHC 34.8 RDW 12.6 Plt Count 189 MPV 9.2 L Immature Gran % (Auto) 0.3 Neut % (Auto) 68.7 Lymph % (Auto) 16.5 L [place] % (Auto) 10.8 Eos % (Auto) 3.5 Baso % (Auto) 0.2 Lymph # (Auto) 1.0 L [place] # (Auto) 0.6 Eos # (Auto) 0.2 Baso # (Auto) 0.0 Abs Immat Gran (auto) 0.02 Absolute Neuts (auto) 4.1 Absolute Nucleated RBC 0.000 Nucleated RBC % (auto) 0.0 ESR Sodium 141 141 Potassium 3.1 L D 3.0 L Chloride 105 102 Carbon Dioxide 24 27 Anion Gap 15 15 BUN 17 H 13 Creatinine 1.68 H 1.45 H Estim Creat Clear Calc 71.2 82.5 Estimated GFR 45 53 Random Glucose Fasting Glucose 90 Estimat Average Glucose Hemoglobin A1c % Calcium 9.1 D Magnesium Iron TIBC % Saturation Unsat Iron Binding Total Bilirubin 0.7 0.5 Direct Bilirubin 0.2 AST 120 H 119 H ALT 47 H 56 H Alkaline Phosphatase 45 43 Ammonia Lactate Dehydrogenase 472 H Total Creatine Kinase 6578 H Total Protein 6.2 L D 5.8 L Albumin 3.8 D 3.5 Triglycerides Cholesterol LDL Cholesterol, Calc HDL Cholesterol Vitamin B12 Folate TSH Urine Color Urine Appearance Urine pH Ur Specific [place] Urine Protein Urine Glucose (UA) Urine Ketones Urine Blood Urine Nitrite Ur Leukocyte Esterase Urine RBC Urine WBC Ur Squamous Epith Cells Urine Bacteria Urine Mucus U Random Total Protein Urine Creatinine Urine Microalbumin Microalb/Creat Ratio Protein/Creatinin Ratio Urine Opiates Screen Urine Fentanyl Screen Ur Barbiturates Screen Valproic Acid 103.1 H Ur Phencyclidine Scrn Ur Amphetamines Screen U Benzodiazepines Scrn Urine Cocaine Screen U Marijuana (THC) Screen Ethyl Alcohol Rheumatoid Factor MARLEN Screen MARLEN Titer MARLEN Titer 2 MARLEN Titer 3 MARLEN Pattern MARLEN Pattern 2 MALREN Pattern 3 Lyme Screen IgG & IgM Lyme Progressive Test Lyme IgG 18 kDa Band Lyme IgG 23 kDa Band Lyme IgG 28 kDa Band Lyme IgG 30 kDa Band Lyme IgG 45 kDa Band Lyme IgG 58 kDa Band Lyme IgG 66 kDa Band Lyme IgG 93 kDa Band Lyme IgG Ab (Immblot) Lyme IgM 23 kDa Band Lyme IgM 39 kDa Band Lyme IgM 41 kDa Band Lyme IgM Interpretaton COVID-19 (URI) COVID-19 Clin Com Influenza Type A (PCR) Influenza Type B (PCR) RSV RNA Qual (PCR) SARS-CoV-2 RNA (RT-PCR) 08/25/21 08/26/21 08/26/21 17:19 07:53 07:53 WBC 5.6 RBC 3.90 L Hgb 11.9 L Hct 34.4 L MCV 88.2 MCH 30.5 MCHC 34.6 RDW 12.9 Plt Count 183 MPV 9.1 L Immature Gran % (Auto) 0.5 H Neut % (Auto) 62.7 Lymph % (Auto) 18.9 L [place] % (Auto) 10.9 Eos % (Auto) 6.6 H Baso % (Auto) 0.4 Lymph # (Auto) 1.1 L [place] # (Auto) 0.6 Eos # (Auto) 0.4 Baso # (Auto) 0.0 Abs Immat Gran (auto) 0.03 Absolute Neuts (auto) 3.5 Absolute Nucleated RBC 0.000 Nucleated RBC % (auto) 0.0 ESR Sodium 144 Cancelled Potassium 3.9 D Cancelled Chloride 105 Cancelled Carbon Dioxide 26 Cancelled Anion Gap 17 Cancelled BUN 11 Creatinine 1.26 Estim Creat Clear Calc 94.9 Estimated GFR > 60 Random Glucose 93 Fasting Glucose Estimat Average Glucose Hemoglobin A1c % Calcium 9.1 Magnesium Cancelled Iron TIBC % Saturation Unsat Iron Binding Total Bilirubin Direct Bilirubin AST ALT Alkaline Phosphatase Ammonia Lactate Dehydrogenase Total Creatine Kinase 5470 H Total Protein Albumin Triglycerides Cholesterol LDL Cholesterol, Calc HDL Cholesterol Vitamin B12 Folate TSH Urine Color Urine Appearance Urine pH Ur Specific [place] Urine Protein Urine Glucose (UA) Urine Ketones Urine Blood Urine Nitrite Ur Leukocyte Esterase Urine RBC Urine WBC Ur Squamous Epith Cells Urine Bacteria Urine Mucus U Random Total Protein Urine Creatinine Urine Microalbumin Microalb/Creat Ratio Protein/Creatinin Ratio Urine Opiates Screen Urine Fentanyl Screen Ur Barbiturates Screen Valproic Acid Ur Phencyclidine Scrn Ur Amphetamines Screen U Benzodiazepines Scrn Urine Cocaine Screen U Marijuana (THC) Screen Ethyl Alcohol Rheumatoid Factor MARLEN Screen MARLEN Titer MARLEN Titer 2 MALREN Titer 3 MARLEN Pattern MARLEN Pattern 2 MARLEN Pattern 3 Lyme Screen IgG & IgM Lyme Progressive Test Lyme IgG 18 kDa Band Lyme IgG 23 kDa Band Lyme IgG 28 kDa Band Lyme IgG 30 kDa Band Lyme IgG 45 kDa Band Lyme IgG 58 kDa Band Lyme IgG 66 kDa Band Lyme IgG 93 kDa Band Lyme IgG Ab (Immblot) Lyme IgM 23 kDa Band Lyme IgM 39 kDa Band Lyme IgM 41 kDa Band Lyme IgM Interpretaton COVID-19 (URI) COVID-19 Clin Com Influenza Type A (PCR) Influenza Type B (PCR) RSV RNA Qual (PCR) SARS-CoV-2 RNA (RT-PCR) 08/26/21 08/26/21 08/27/21 07:53 14:30 08:19 WBC 7.0 5.0 3.8 L RBC 4.35 L 4.17 L 4.41 L Hgb 13.5 L 12.5 L 13.5 L Hct 38.5 L 37.1 L 40.3 L MCV 88.5 89.0 91.4 MCH 31.0 30.0 30.6 MCHC 35.1 33.7 33.5 RDW 12.9 12.8 13.2 Plt Count 200 191 178 MPV 9.4 9.5 9.8 Immature Gran % (Auto) 0.4 1.1 H Neut % (Auto) 86.8 H 74.0 H Lymph % (Auto) 3.9 L 11.9 L [place] % (Auto) 5.6 11.4 H Eos % (Auto) 3.2 1.1 Baso % (Auto) 0.1 0.5 Lymph # (Auto) 0.3 L 0.5 L [place] # (Auto) 0.4 0.4 Eos # (Auto) 0.2 0.0 Baso # (Auto) 0.0 0.0 Abs Immat Gran (auto) 0.03 0.04 H Absolute Neuts (auto) 6.0 2.8 Absolute Nucleated RBC 0.000 0.000 0.000 Nucleated RBC % (auto) 0.0 0.0 0.0 ESR Sodium Potassium Chloride Carbon Dioxide Anion Gap BUN Creatinine Estim Creat Clear Calc Estimated GFR Random Glucose Fasting Glucose Estimat Average Glucose Hemoglobin A1c % Calcium Magnesium Iron TIBC % Saturation Unsat Iron Binding Total Bilirubin Direct Bilirubin AST ALT Alkaline Phosphatase Ammonia Lactate Dehydrogenase Total Creatine Kinase Total Protein Albumin Triglycerides Cholesterol LDL Cholesterol, Calc HDL Cholesterol Vitamin B12 Folate TSH Urine Color Urine Appearance Urine pH Ur Specific [place] Urine Protein Urine Glucose (UA) Urine Ketones Urine Blood Urine Nitrite Ur Leukocyte Esterase Urine RBC Urine WBC Ur Squamous Epith Cells Urine Bacteria Urine Mucus U Random Total Protein Urine Creatinine Urine Microalbumin Microalb/Creat Ratio Protein/Creatinin Ratio Urine Opiates Screen Urine Fentanyl Screen Ur Barbiturates Screen Valproic Acid Ur Phencyclidine Scrn Ur Amphetamines Screen U Benzodiazepines Scrn Urine Cocaine Screen U Marijuana (THC) Screen Ethyl Alcohol Rheumatoid Factor MARLEN Screen MARLEN Titer MARLEN Titer 2 MARLEN Titer 3 MARLEN Pattern MARLEN Pattern 2 MARLEN Pattern 3 Lyme Screen IgG & IgM Lyme Progressive Test Lyme IgG 18 kDa Band Lyme IgG 23 kDa Band Lyme IgG 28 kDa Band Lyme IgG 30 kDa Band Lyme IgG 45 kDa Band Lyme IgG 58 kDa Band Lyme IgG 66 kDa Band Lyme IgG 93 kDa Band Lyme IgG Ab (Immblot) Lyme IgM 23 kDa Band Lyme IgM 39 kDa Band Lyme IgM 41 kDa Band Lyme IgM Interpretaton COVID-19 (URI) COVID-19 Clin Com Influenza Type A (PCR) Influenza Type B (PCR) RSV RNA Qual (PCR) SARS-CoV-2 RNA (RT-PCR) 08/27/21 08/27/21 08/27/21 08:19 08:19 13:58 WBC RBC Hgb Hct MCV MCH MCHC RDW Plt Count MPV Immature Gran % (Auto) Neut % (Auto) Lymph % (Auto) [place] % (Auto) Eos % (Auto) Baso % (Auto) Lymph # (Auto) [place] # (Auto) Eos # (Auto) Baso # (Auto) Abs Immat Gran (auto) Absolute Neuts (auto) Absolute Nucleated RBC Nucleated RBC % (auto) ESR Sodium 144 Potassium 3.8 Chloride 107 Carbon Dioxide 24 Anion Gap 17 BUN 21 H D Creatinine 1.54 H Estim Creat Clear Calc 77.6 Estimated GFR 49 Random Glucose Fasting Glucose 75 Estimat Average Glucose Hemoglobin A1c % Calcium 8.8 Magnesium Iron 24 L TIBC 245 % Saturation 10 L Unsat Iron Binding 221 Total Bilirubin 0.6 Direct Bilirubin AST 102 H ALT 73 H Alkaline Phosphatase 47 Ammonia 45 Lactate Dehydrogenase Total Creatine Kinase 3624 H Total Protein 6.0 L Albumin 3.5 Triglycerides Cholesterol LDL Cholesterol, Calc HDL Cholesterol Vitamin B12 Folate TSH Urine Color Urine Appearance Urine pH Ur Specific [place] Urine Protein Urine Glucose (UA) Urine Ketones Urine Blood Urine Nitrite Ur Leukocyte Esterase Urine RBC Urine WBC Ur Squamous Epith Cells Urine Bacteria Urine Mucus U Random Total Protein Urine Creatinine Urine Microalbumin Microalb/Creat Ratio Protein/Creatinin Ratio Urine Opiates Screen Urine Fentanyl Screen Ur Barbiturates Screen Valproic Acid Ur Phencyclidine Scrn Ur Amphetamines Screen U Benzodiazepines Scrn Urine Cocaine Screen U Marijuana (THC) Screen Ethyl Alcohol Rheumatoid Factor MARLEN Screen MARLEN Titer MARLEN Titer 2 MARLEN Titer 3 MARLEN Pattern MARLEN Pattern 2 MARLEN Pattern 3 Lyme Screen IgG & IgM Lyme Progressive Test Lyme IgG 18 kDa Band Lyme IgG 23 kDa Band Lyme IgG 28 kDa Band Lyme IgG 30 kDa Band Lyme IgG 45 kDa Band Lyme IgG 58 kDa Band Lyme IgG 66 kDa Band Lyme IgG 93 kDa Band Lyme IgG Ab (Immblot) Lyme IgM 23 kDa Band Lyme IgM 39 kDa Band Lyme IgM 41 kDa Band Lyme IgM Interpretaton COVID-19 (URI) COVID-19 Clin Com Influenza Type A (PCR) NEGATIVE Influenza Type B (PCR) NEGATIVE RSV RNA Qual (PCR) NEGATIVE SARS-CoV-2 RNA (RT-PCR) NEGATIVE 08/28/21 08/29/21 08/29/21 08:59 07:10 07:10 WBC 7.0 RBC 4.18 L Hgb 12.6 L Hct 37.2 L MCV 89.0 MCH 30.1 MCHC 33.9 RDW 13.2 Plt Count 204 MPV 8.9 L Immature Gran % (Auto) 1.0 H Neut % (Auto) 62.8 Lymph % (Auto) 16.3 L [place] % (Auto) 12.9 H Eos % (Auto) 6.7 H Baso % (Auto) 0.3 Lymph # (Auto) 1.1 L [place] # (Auto) 0.9 Eos # (Auto) 0.5 H Baso # (Auto) 0.0 Abs Immat Gran (auto) 0.07 H Absolute Neuts (auto) 4.4 Absolute Nucleated RBC 0.000 Nucleated RBC % (auto) 0.0 ESR Sodium 144 Potassium 3.4 Chloride 107 Carbon Dioxide 29 Anion Gap 11 L BUN 13 Creatinine 1.29 Estim Creat Clear Calc 92.7 Estimated GFR > 60 Random Glucose 107 Fasting Glucose Estimat Average Glucose 94 Hemoglobin A1c % 4.9 Calcium 8.5 Magnesium 1.8 Iron TIBC % Saturation Unsat Iron Binding Total Bilirubin 0.6 Direct Bilirubin AST 69 H ALT 66 H Alkaline Phosphatase 44 Ammonia Lactate Dehydrogenase Total Creatine Kinase 2202 H D Total Protein 5.8 L Albumin 3.3 L Triglycerides Cholesterol LDL Cholesterol, Calc HDL Cholesterol Vitamin B12 Folate TSH Urine Color Urine Appearance Urine pH Ur Specific [place] Urine Protein Urine Glucose (UA) Urine Ketones Urine Blood Urine Nitrite Ur Leukocyte Esterase Urine RBC Urine WBC Ur Squamous Epith Cells Urine Bacteria Urine Mucus U Random Total Protein Urine Creatinine Urine Microalbumin Microalb/Creat Ratio Protein/Creatinin Ratio Urine Opiates Screen Urine Fentanyl Screen Ur Barbiturates Screen Valproic Acid Ur Phencyclidine Scrn Ur Amphetamines Screen U Benzodiazepines Scrn Urine Cocaine Screen U Marijuana (THC) Screen Ethyl Alcohol Rheumatoid Factor MARLEN Screen MARLEN Titer MARLEN Titer 2 MARLEN Titer 3 MARLEN Pattern MARLEN Pattern 2 MARLEN Pattern 3 Lyme Screen IgG & IgM Lyme Progressive Test Lyme IgG 18 kDa Band Lyme IgG 23 kDa Band Lyme IgG 28 kDa Band Lyme IgG 30 kDa Band Lyme IgG 45 kDa Band Lyme IgG 58 kDa Band Lyme IgG 66 kDa Band Lyme IgG 93 kDa Band Lyme IgG Ab (Immblot) Lyme IgM 23 kDa Band Lyme IgM 39 kDa Band Lyme IgM 41 kDa Band Lyme IgM Interpretaton COVID-19 (URI) COVID-19 Clin Com Influenza Type A (PCR) Influenza Type B (PCR) RSV RNA Qual (PCR) SARS-CoV-2 RNA (RT-PCR) 09/04/21 09/04/21 09/04/21 07:34 07:34 07:34 WBC 5.6 RBC 4.47 L Hgb 13.3 L Hct 40.5 L MCV 90.6 MCH 29.8 MCHC 32.8 RDW 12.8 Plt Count 210 MPV 9.0 L Immature Gran % (Auto) 1.8 H Neut % (Auto) 52.7 Lymph % (Auto) 27.5 [place] % (Auto) 12.6 H Eos % (Auto) 5.0 H Baso % (Auto) 0.4 Lymph # (Auto) 1.5 [place] # (Auto) 0.7 Eos # (Auto) 0.3 Baso # (Auto) 0.0 Abs Immat Gran (auto) 0.10 H Absolute Neuts (auto) 2.9 Absolute Nucleated RBC 0.000 Nucleated RBC % (auto) 0.0 ESR Sodium 145 145 Potassium 4.6 D 4.6 Chloride 110 H 111 H Carbon Dioxide 24 23 Anion Gap 16 16 BUN 24 H D 24 H Creatinine 1.99 H 2.00 H Estim Creat Clear Calc 60.1 59.8 Estimated GFR 37 36 Random Glucose 109 Fasting Glucose 108 H D Estimat Average Glucose Hemoglobin A1c % Calcium 9.6 D 9.5 Magnesium Iron TIBC % Saturation Unsat Iron Binding Total Bilirubin 0.5 Direct Bilirubin AST 27 D ALT 45 H Alkaline Phosphatase 46 Ammonia Lactate Dehydrogenase Total Creatine Kinase 248 H D 245 H Total Protein 6.6 Albumin 3.8 Triglycerides Cholesterol LDL Cholesterol, Calc HDL Cholesterol Vitamin B12 Folate TSH Urine Color Urine Appearance Urine pH Ur Specific [place] Urine Protein Urine Glucose (UA) Urine Ketones Urine Blood Urine Nitrite Ur Leukocyte Esterase Urine RBC Urine WBC Ur Squamous Epith Cells Urine Bacteria Urine Mucus U Random Total Protein Urine Creatinine Urine Microalbumin Microalb/Creat Ratio Protein/Creatinin Ratio Urine Opiates Screen Urine Fentanyl Screen Ur Barbiturates Screen Valproic Acid Ur Phencyclidine Scrn Ur Amphetamines Screen U Benzodiazepines Scrn Urine Cocaine Screen U Marijuana (THC) Screen Ethyl Alcohol Rheumatoid Factor MARLEN Screen MARLEN Titer MARLEN Titer 2 MARLEN Titer 3 MARLEN Pattern MARLEN Pattern 2 MARLEN Pattern 3 Lyme Screen IgG & IgM Lyme Progressive Test Lyme IgG 18 kDa Band Lyme IgG 23 kDa Band Lyme IgG 28 kDa Band Lyme IgG 30 kDa Band Lyme IgG 45 kDa Band Lyme IgG 58 kDa Band Lyme IgG 66 kDa Band Lyme IgG 93 kDa Band Lyme IgG Ab (Immblot) Lyme IgM 23 kDa Band Lyme IgM 39 kDa Band Lyme IgM 41 kDa Band Lyme IgM Interpretaton COVID-19 (URI) COVID-19 Clin Com Influenza Type A (PCR) Influenza Type B (PCR) RSV RNA Qual (PCR) SARS-CoV-2 RNA (RT-PCR) 09/04/21 09/06/21 09/06/21 10:30 08:33 08:33 WBC RBC Hgb Hct MCV MCH MCHC RDW Plt Count MPV Immature Gran % (Auto) Neut % (Auto) Lymph % (Auto) [place] % (Auto) Eos % (Auto) Baso % (Auto) Lymph # (Auto) [place] # (Auto) Eos # (Auto) Baso # (Auto) Abs Immat Gran (auto) Absolute Neuts (auto) Absolute Nucleated RBC Nucleated RBC % (auto) ESR Sodium 146 H 143 Potassium 4.6 4.6 Chloride 110 H 110 H Carbon Dioxide 26 23 Anion Gap 15 15 BUN 22 H 22 H Creatinine 1.86 H 1.77 H Estim Creat Clear Calc 64.3 67.5 Estimated GFR 40 42 Random Glucose 89 92 Fasting Glucose Estimat Average Glucose Hemoglobin A1c % Calcium 9.5 9.7 Magnesium Iron TIBC % Saturation Unsat Iron Binding Total Bilirubin Direct Bilirubin AST ALT Alkaline Phosphatase Ammonia Lactate Dehydrogenase Total Creatine Kinase Total Protein Albumin Triglycerides Cholesterol LDL Cholesterol, Calc HDL Cholesterol Vitamin B12 Folate TSH Cancelled 0.70 Urine Color Urine Appearance Urine pH Ur Specific [place] Urine Protein Urine Glucose (UA) Urine Ketones Urine Blood Urine Nitrite Ur Leukocyte Esterase Urine RBC Urine WBC Ur Squamous Epith Cells Urine Bacteria Urine Mucus U Random Total Protein Urine Creatinine Urine Microalbumin Microalb/Creat Ratio Protein/Creatinin Ratio Urine Opiates Screen Urine Fentanyl Screen Ur Barbiturates Screen Valproic Acid Ur Phencyclidine Scrn Ur Amphetamines Screen U Benzodiazepines Scrn Urine Cocaine Screen U Marijuana (THC) Screen Ethyl Alcohol Rheumatoid Factor MARLEN Screen MARLEN Titer MARLEN Titer 2 MARLEN Titer 3 MARLEN Pattern MARLEN Pattern 2 MARLEN Pattern 3 Lyme Screen IgG & IgM Lyme Progressive Test Lyme IgG 18 kDa Band Lyme IgG 23 kDa Band Lyme IgG 28 kDa Band Lyme IgG 30 kDa Band Lyme IgG 45 kDa Band Lyme IgG 58 kDa Band Lyme IgG 66 kDa Band Lyme IgG 93 kDa Band Lyme IgG Ab (Immblot) Lyme IgM 23 kDa Band Lyme IgM 39 kDa Band Lyme IgM 41 kDa Band Lyme IgM Interpretaton COVID-19 (URI) COVID-19 Clin Com Influenza Type A (PCR) Influenza Type B (PCR) RSV RNA Qual (PCR) SARS-CoV-2 RNA (RT-PCR) 09/09/21 09/09/21 09/09/21 09:11 09:11 09:11 WBC 4.7 L RBC 4.22 L Hgb 12.7 L Hct 38.3 L MCV 90.8 MCH 30.1 MCHC 33.2 RDW 12.9 Plt Count 260 MPV 9.5 Immature Gran % (Auto) 0.4 Neut % (Auto) 62.9 Lymph % (Auto) 18.9 L Castro % (Auto) 9.9 Eos % (Auto) 7.5 H Baso % (Auto) 0.4 Lymph # (Auto) 0.9 L [place] # (Auto) 0.5 Eos # (Auto) 0.4 Baso # (Auto) 0.0 Abs Immat Gran (auto) 0.02 Absolute Neuts (auto) 2.9 Absolute Nucleated RBC 0.000 Nucleated RBC % (auto) 0.0 ESR 17 H Sodium 142 Potassium 4.5 Chloride 109 H Carbon Dioxide 27 Anion Gap 11 L BUN 19 H Creatinine 1.80 H Estim Creat Clear Calc 66.4 Estimated GFR 41 Random Glucose 92 Fasting Glucose Estimat Average Glucose Hemoglobin A1c % Calcium 9.3 Magnesium Iron TIBC % Saturation Unsat Iron Binding Total Bilirubin 0.6 Direct Bilirubin AST 26 ALT 35 Alkaline Phosphatase 50 Ammonia Lactate Dehydrogenase Total Creatine Kinase Total Protein 6.5 Albumin 3.9 Triglycerides Cholesterol LDL Cholesterol, Calc HDL Cholesterol Vitamin B12 Folate TSH Urine Color Urine Appearance Urine pH Ur Specific [place] Urine Protein Urine Glucose (UA) Urine Ketones Urine Blood Urine Nitrite Ur Leukocyte Esterase Urine RBC Urine WBC Ur Squamous Epith Cells Urine Bacteria Urine Mucus U Random Total Protein Urine Creatinine Urine Microalbumin Microalb/Creat Ratio Protein/Creatinin Ratio Urine Opiates Screen Urine Fentanyl Screen Ur Barbiturates Screen Valproic Acid Ur Phencyclidine Scrn Ur Amphetamines Screen U Benzodiazepines Scrn Urine Cocaine Screen U Marijuana (THC) Screen Ethyl Alcohol Rheumatoid Factor MARLEN Screen MARLEN Titer MARLEN Titer 2 MARLEN Titer 3 MARLEN Pattern MARLEN Pattern 2 MARLEN Pattern 3 Lyme Screen IgG & IgM Lyme Progressive Test Lyme IgG 18 kDa Band Lyme IgG 23 kDa Band Lyme IgG 28 kDa Band Lyme IgG 30 kDa Band Lyme IgG 45 kDa Band Lyme IgG 58 kDa Band Lyme IgG 66 kDa Band Lyme IgG 93 kDa Band Lyme IgG Ab (Immblot) Lyme IgM 23 kDa Band Lyme IgM 39 kDa Band Lyme IgM 41 kDa Band Lyme IgM Interpretaton COVID-19 (URI) COVID-19 Clin Com Influenza Type A (PCR) Influenza Type B (PCR) RSV RNA Qual (PCR) SARS-CoV-2 RNA (RT-PCR) 09/09/21 09/09/21 09/09/21 09:11 09:11 09:11 WBC RBC Hgb Hct MCV MCH MCHC RDW Plt Count MPV Immature Gran % (Auto) Neut % (Auto) Lymph % (Auto) [place] % (Auto) Eos % (Auto) Baso % (Auto) Lymph # (Auto) [place] # (Auto) Eos # (Auto) Baso # (Auto) Abs Immat Gran (auto) Absolute Neuts (auto) Absolute Nucleated RBC Nucleated RBC % (auto) ESR Sodium Potassium Chloride Carbon Dioxide Anion Gap BUN Creatinine Estim Creat Clear Calc Estimated GFR Random Glucose Fasting Glucose Estimat Average Glucose Hemoglobin A1c % Calcium Magnesium Iron TIBC % Saturation Unsat Iron Binding Total Bilirubin Direct Bilirubin AST ALT Alkaline Phosphatase Ammonia Lactate Dehydrogenase Total Creatine Kinase Total Protein Albumin Triglycerides Cholesterol LDL Cholesterol, Calc HDL Cholesterol Vitamin B12 Folate TSH Urine Color Urine Appearance Urine pH Ur Specific [place] Urine Protein Urine Glucose (UA) Urine Ketones Urine Blood Urine Nitrite Ur Leukocyte Esterase Urine RBC Urine WBC Ur Squamous Epith Cells Urine Bacteria Urine Mucus U Random Total Protein Urine Creatinine Urine Microalbumin Microalb/Creat Ratio Protein/Creatinin Ratio Urine Opiates Screen Urine Fentanyl Screen Ur Barbiturates Screen Valproic Acid Ur Phencyclidine Scrn Ur Amphetamines Screen U Benzodiazepines Scrn Urine Cocaine Screen U Marijuana (THC) Screen Ethyl Alcohol Rheumatoid Factor < 15.0 MARLEN Screen NEGATIVE MARLEN Titer TNP MARLEN Titer 2 TNP MARLEN Titer 3 TNP MARLEN Pattern TNP MARLEN Pattern 2 TNP MARLEN Pattern 3 TNP Lyme Screen IgG & IgM POSITIVE Lyme Progressive Test 1.46 H Lyme IgG 18 kDa Band NON-REACTIVE Lyme IgG 23 kDa Band REACTIVE A Lyme IgG 28 kDa Band REACTIVE A Lyme IgG 30 kDa Band REACTIVE A Lyme IgG 45 kDa Band REACTIVE A Lyme IgG 58 kDa Band NON-REACTIVE Lyme IgG 66 kDa Band REACTIVE A Lyme IgG 93 kDa Band NON-REACTIVE Lyme IgG Ab (Immblot) POSITIVE A Lyme IgM 23 kDa Band NON-REACTIVE Lyme IgM 39 kDa Band NON-REACTIVE Lyme IgM 41 kDa Band NON-REACTIVE Lyme IgM Interpretaton NEGATIVE COVID-19 (URI) COVID-19 Clin Com Influenza Type A (PCR) Influenza Type B (PCR) RSV RNA Qual (PCR) SARS-CoV-2 RNA (RT-PCR) 09/09/21 09/10/21 09/13/21 09:11 08:41 14:12 WBC RBC Hgb Hct MCV MCH MCHC RDW Plt Count MPV Immature Gran % (Auto) Neut % (Auto) Lymph % (Auto) [place] % (Auto) Eos % (Auto) Baso % (Auto) Lymph # (Auto) [place] # (Auto) Eos # (Auto) Baso # (Auto) Abs Immat Gran (auto) Absolute Neuts (auto) Absolute Nucleated RBC Nucleated RBC % (auto) ESR Sodium Potassium Chloride Carbon Dioxide Anion Gap BUN Creatinine Estim Creat Clear Calc Estimated GFR Random Glucose Fasting Glucose Estimat Average Glucose 97 Hemoglobin A1c % 5.0 Calcium Magnesium Iron TIBC % Saturation Unsat Iron Binding Total Bilirubin Direct Bilirubin AST ALT Alkaline Phosphatase Ammonia 19 Lactate Dehydrogenase Total Creatine Kinase Total Protein Albumin Triglycerides Cholesterol LDL Cholesterol, Calc HDL Cholesterol Vitamin B12 Folate TSH Urine Color Urine Appearance Urine pH Ur Specific [place] Urine Protein Urine Glucose (UA) Urine Ketones Urine Blood Urine Nitrite Ur Leukocyte Esterase Urine RBC Urine WBC Ur Squamous Epith Cells Urine Bacteria Urine Mucus U Random Total Protein 12 Urine Creatinine 78.22 Urine Microalbumin 47.0 Microalb/Creat Ratio 60.0 Protein/Creatinin Ratio 0.15 Urine Opiates Screen Urine Fentanyl Screen Ur Barbiturates Screen Valproic Acid Ur Phencyclidine Scrn Ur Amphetamines Screen U Benzodiazepines Scrn Urine Cocaine Screen U Marijuana (THC) Screen Ethyl Alcohol Rheumatoid Factor MARLEN Screen MARLEN Titer MARLEN Titer 2 MARLEN Titer 3 MARLEN Pattern MARLEN Pattern 2 MARLEN Pattern 3 Lyme Screen IgG & IgM Lyme Progressive Test Lyme IgG 18 kDa Band Lyme IgG 23 kDa Band Lyme IgG 28 kDa Band Lyme IgG 30 kDa Band Lyme IgG 45 kDa Band Lyme IgG 58 kDa Band Lyme IgG 66 kDa Band Lyme IgG 93 kDa Band Lyme IgG Ab (Immblot) Lyme IgM 23 kDa Band Lyme IgM 39 kDa Band Lyme IgM 41 kDa Band Lyme IgM Interpretaton COVID-19 (URI) COVID-19 Clin Com Influenza Type A (PCR) Influenza Type B (PCR) RSV RNA Qual (PCR) SARS-CoV-2 RNA (RT-PCR) 09/16/21 09/17/21 09/18/21 08:35 12:26 12:19 WBC 5.9 RBC 4.46 L Hgb 13.1 L Hct 39.9 L MCV 89.5 MCH 29.4 MCHC 32.8 RDW 12.8 Plt Count 265 MPV 9.6 Immature Gran % (Auto) 0.5 H Neut % (Auto) 65.6 Lymph % (Auto) 18.9 L [place] % (Auto) 10.8 Eos % (Auto) 3.7 Baso % (Auto) 0.5 Lymph # (Auto) 1.1 L [place] # (Auto) 0.6 Eos # (Auto) 0.2 Baso # (Auto) 0.0 Abs Immat Gran (auto) 0.03 Absolute Neuts (auto) 5.1 3.9 Absolute Nucleated RBC 0.000 Nucleated RBC % (auto) 0.0 ESR Sodium Potassium Chloride Carbon Dioxide Anion Gap BUN Creatinine Estim Creat Clear Calc Estimated GFR Random Glucose Fasting Glucose Estimat Average Glucose Hemoglobin A1c % Calcium Magnesium Iron TIBC % Saturation Unsat Iron Binding Total Bilirubin Direct Bilirubin AST ALT Alkaline Phosphatase Ammonia Lactate Dehydrogenase Total Creatine Kinase Total Protein Albumin Triglycerides Cholesterol LDL Cholesterol, Calc HDL Cholesterol Vitamin B12 Folate TSH Urine Color YELLOW Urine Appearance HAZY Urine pH 6.0 Ur Specific [place] 1.015 Urine Protein TRACE Urine Glucose (UA) NEG Urine Ketones NEG Urine Blood NEG Urine Nitrite NEG Ur Leukocyte Esterase NEG Urine RBC 0 Urine WBC 0 Ur Squamous Epith Cells NONE Urine Bacteria NONE Urine Mucus 1+ U Random Total Protein Urine Creatinine Urine Microalbumin Microalb/Creat Ratio Protein/Creatinin Ratio Urine Opiates Screen Urine Fentanyl Screen Ur Barbiturates Screen Valproic Acid Ur Phencyclidine Scrn Ur Amphetamines Screen U Benzodiazepines Scrn Urine Cocaine Screen U Marijuana (THC) Screen Ethyl Alcohol Rheumatoid Factor MARLEN Screen MARLEN Titer MARLEN Titer 2 MARLEN Titer 3 MARLEN Pattern MARLEN Pattern 2 MARLEN Pattern 3 Lyme Screen IgG & IgM Lyme Progressive Test Lyme IgG 18 kDa Band Lyme IgG 23 kDa Band Lyme IgG 28 kDa Band Lyme IgG 30 kDa Band Lyme IgG 45 kDa Band Lyme IgG 58 kDa Band Lyme IgG 66 kDa Band Lyme IgG 93 kDa Band Lyme IgG Ab (Immblot) Lyme IgM 23 kDa Band Lyme IgM 39 kDa Band Lyme IgM 41 kDa Band Lyme IgM Interpretaton COVID-19 (URI) COVID-19 Clin Com Influenza Type A (PCR) Influenza Type B (PCR) RSV RNA Qual (PCR) SARS-CoV-2 RNA (RT-PCR) 09/19/21 13:55 WBC RBC Hgb Hct MCV MCH MCHC RDW Plt Count MPV Immature Gran % (Auto) Neut % (Auto) Lymph % (Auto) [place] % (Auto) Eos % (Auto) Baso % (Auto) Lymph # (Auto) [place] # (Auto) Eos # (Auto) Baso # (Auto) Abs Immat Gran (auto) Absolute Neuts (auto) Absolute Nucleated RBC Nucleated RBC % (auto) ESR Sodium 142 Potassium 4.3 Chloride 104 Carbon Dioxide 29 Anion Gap 13 BUN 25 H Creatinine 1.68 H Estim Creat Clear Calc 65.2 Estimated GFR 45 Random Glucose 100 Fasting Glucose Estimat Average Glucose Hemoglobin A1c % Calcium 10.1 D Magnesium Iron TIBC % Saturation Unsat Iron Binding Total Bilirubin 0.4 Direct Bilirubin AST 20 ALT 30 Alkaline Phosphatase 64 D Ammonia Lactate Dehydrogenase Total Creatine Kinase Total Protein 7.5 Albumin 4.4 Triglycerides Cholesterol LDL Cholesterol, Calc HDL Cholesterol Vitamin B12 Folate TSH Urine Color Urine Appearance Urine pH Ur Specific [place] Urine Protein Urine Glucose (UA) Urine Ketones Urine Blood Urine Nitrite Ur Leukocyte Esterase Urine RBC Urine WBC Ur Squamous Epith Cells Urine Bacteria Urine Mucus U Random Total Protein Urine Creatinine Urine Microalbumin Microalb/Creat Ratio Protein/Creatinin Ratio Urine Opiates Screen Urine Fentanyl Screen Ur Barbiturates Screen Valproic Acid Ur Phencyclidine Scrn Ur Amphetamines Screen U Benzodiazepines Scrn Urine Cocaine Screen U Marijuana (THC) Screen Ethyl Alcohol Rheumatoid Factor MARLEN Screen MARLEN Titer MARLEN Titer 2 MARLEN Titer 3 MARLEN Pattern MARLEN Pattern 2 MARLEN Pattern 3 Lyme Screen IgG & IgM Lyme Progressive Test Lyme IgG 18 kDa Band Lyme IgG 23 kDa Band Lyme IgG 28 kDa Band Lyme IgG 30 kDa Band Lyme IgG 45 kDa Band Lyme IgG 58 kDa Band Lyme IgG 66 kDa Band Lyme IgG 93 kDa Band Lyme IgG Ab (Immblot) Lyme IgM 23 kDa Band Lyme IgM 39 kDa Band Lyme IgM 41 kDa Band Lyme IgM Interpretaton COVID-19 (URI) COVID-19 Clin Com Influenza Type A (PCR) Influenza Type B (PCR) RSV RNA Qual (PCR) SARS-CoV-2 RNA (RT-PCR) Airway Mallampati Class: II TM Dist: >3cm Neck ROM: Full Heart: rrr Lungs: cta Assessment and Plan Assessment Anesthesia Assessment: Anesthesia Plan Discussed and Chart Reviewed Final Anesthetic Review Family History of Problems with Anesthesia: No History of Problems with Anesthesia: No NPO: Yes ASA Class: III Final Preanesthetic Review: No Changes in Pt Med Stat, Meds/Allgs Chart Reviewed and Consent Obtained/Reviewed Patient Risk: Intermediate Procedure Risk: Intermediate Anesthetic Plan Anesthetic Plan: GA Disposition: Standard PACU
--- NOTE | 2021-09-25 07:47 | HO.ECTPROC ---
ECT Procedure Note Diagnosis/Treatment Date of Service: 09/25/21 Diagnosis: Bipolar disorder Previous ECT Date: 09/18/21 Treatment: Series Interval Clinical Notes: The patient's mood is nearly baseline, less hypomanic and more organized. No side effects with previous ECT. ECT Settings Device: THYMATRON DGx Electrode Placement: Bitemporal Program/Pulse Width: 0.50 Energy Percent: 100 Seizure Duration By EEG (in seconds): 44 By Motor Observation (in seconds): 29 Medications Administration General Anesthetic: Etomidate Muscle Relaxant: Rocuronium Ancillary Medications Analgesics: Torodol - Pre ECT Anti-emetics: Zofran - Pre ECT Airway Management Airway Management: Bag Mask Ventilation Treatment Recommendations No Changes Recommended: No change Pt Tolerated Procedure w/o Issue: Yes
[2021-09-25 08:42] LABS: Neut%MD 57.4 %; Neutrophils Absolute Auto 4.1 x10*3/uL (2.0-8.3); WBCANC 7.1 X10*3/uL
[2021-09-25] MEDS: Bisoprolol Fumarate 5 MG TABLET PO (09:05)
[2021-09-25] MEDS: Multivitamin TABLET 1 TAB PO (09:05)
[2021-09-25] MEDS: amLODIPine Besylate 10 MG TABLET PO (09:05)
--- NOTE | 2021-09-25 11:27 | P.DS_ITS ---
DS: Providers Provider Date of Service: 09/25/21 Date of admission: 08/16/21 23:58 Date of discharge: 09/25/21 Primary care physician: Unknown Physician Consults: 09/11/21 08:30 Consult to Nephrology Routine Consulting Provider: Marlon Robertson Reason for consultation: 46 renal insuff see prior admission Has provider been notified: No Attending physician on discharge: Alexander Pengrano DS: Diagnosis Discharge Diagnosis (1) Hypertension: Status: Acute (2) CKD (chronic kidney disease) stage 2, GFR 60-89 ml/min: Status: Acute DS: Medications Discharge Medications Home Medications: Home Medications Medication Instructions Recorded Confirmed acetaminophen 500 mg tablet 1,000 mg PO QID PRN Mild Pain 08/16/21 08/16/21 (Tylenol Extra Strength) (Scale Score 1-4) amlodipine 10 mg tablet 1 tab PO DAILY 08/16/21 08/16/21 aripiprazole 400 mg intramuscular 400 mg IM QMONTH 08/16/21 08/16/21 suspension,extended release (Abilify Maintena) bisoprolol 10 1 tab PO DAILY 08/16/21 08/16/21 mg-hydrochlorothiazide 6.25 mg tablet multivitamin 1 tab PO DAILY 08/16/21 08/16/21 vitamin B complex 1 tab PO DAILY 08/16/21 08/16/21 Previous Rx's Medication Instructions Recorded aripiprazole 30 mg tablet (Abilify) 30 mg PO DAILY 30 days #30 tabs 08/17/20 Mental Status Exam Mental Status Exam Patient Appearance: Well Grooomed and Appropriate Patient Orientation: Person, Place and Situation Level of Consciousness: Awake Patient Behavior: Cooperative Mood Description: Withdrawn Affect Description: Constricted Patient Cognition Impaired: No Ability to Follow Directions: Good Speech Pattern: Clear Hallucinations: None Delusions: Not Present Thought Process: Distracted Thought Content: positive for [place] Judgement: Fair Data Data Completed and Pending Completed studies during hospitalization [Text1]: 09/18/21 09/19/21 09/25/21 12:19 13:55 08:09 WBC 5.9 RBC 4.46 L Hgb 13.1 L Hct 39.9 L MCV 89.5 MCH 29.4 MCHC 32.8 RDW 12.8 Plt Count 265 MPV 9.6 Immature Gran % (Auto) 0.5 H Neut % (Auto) 65.6 Lymph % (Auto) 18.9 L [place] % (Auto) 10.8 Eos % (Auto) 3.7 Baso % (Auto) 0.5 Lymph # (Auto) 1.1 L [place] # (Auto) 0.6 Eos # (Auto) 0.2 Baso # (Auto) 0.0 Abs Immat Gran (auto) 0.03 Absolute Neuts (auto) 3.9 4.1 Absolute Nucleated RBC 0.000 Nucleated RBC % (auto) 0.0 Sodium 142 Potassium 4.3 Chloride 104 Carbon Dioxide 29 Anion Gap 13 BUN 25 H Creatinine 1.68 H Estim Creat Clear Calc 65.2 Estimated GFR 45 Random Glucose 100 Calcium 10.1 D Total Bilirubin 0.4 AST 20 ALT 30 Alkaline Phosphatase 64 D Total Protein 7.5 Albumin 4.4 08/26/21 14:30 Blood - Venous Blood Culture - Final No growth after 5 days. 08/26/21 14:30 Blood - Venous Blood Culture - Final No growth after 5 days. Imaging Diagnostic Imaging Impressions Chest X-Ray 08/26/21 14:28 IMPRESSION: Low lung volume and nonspecific subtle bibasilar airspace disease, may represent hypoventilatory, atelectatic changes versus subtle infiltrate or combination thereof. No evidence of any dense airspace pneumonia. DS: Summary Hospital Course Hospital Course: the patient was admitted for an exacerbation of joleen, psychosis and catatonic symptoms. Please see HPI of the admission note for further details. On admiss ion, he was restarted on Abilify extends release IM 400 mg monthly but he remained catatonic. Sings, we know that he response to ECT, the treatment was scheduled. The patient received ECT 3 times a week but he sporadically got confused. He remains grossly psychotic, disorganized with elated mood and he needed to be on constant observation with security. The case was discussed with Dr. James eventually we added clozapine titrated up to 100 mg p.o. q.h.s.. The patient receives oral treatments of ECT and eventually his mood and thought process improved. He did not have catatonic symptoms at the moment of the discharge. Since the patient did not have safety concerns discharge planning was discussed. Time spent discussing smoking cessation with patient: 3 to 10 minutes Status at Discharge Cognitive/behavioral status at discharge: At baseline Functional status at discharge: independent ambulation Overall status at discharge: patient is back to baseline Time Spent with Patient Time attestation: Total time spent providing and/or coordinating discharge services: Time spent: Less than 30 minutes Discharge Plan Discharge Patient Disposition: Home, Self-Care Discharge Diagnosis: bipolar disorder Referrals: Psychiatrist: Dr. Maurizio Najera ([facility]) [Other] - 10/07/21 10:00 am (*In office appointment for one hour* ) Bill Recapitulation Clerk (Kidney): [facility] [Other] - 1 Week ECT: [facility] PACU [Other] - 10/04/21 7:00 am ECT: [facility] PACU [Other] - 10/11/21 7:00 am ECT: [facility] PACU [Other] - 10/18/21 7:00 am ECT: [facility] PACU [Other] - 10/25/21 7:[facility] - [facility] Week Discharge Medications: New clozapine 100 mg Tablet 100 mg PO BEDTIME 30 Days Qty: 30 0RF doxycycline hyclate 100 mg Tablet 100 mg PO BID 30 Days Qty: 60 0RF Abilify Maintena 400 mg suspension,extended rel recon 400 mg IM QMONTH Qty: 1 0RF Rx Instructions: to be administered by [facility], next dose on 10/25 Continued multivitamin Tablet 1 tab PO DAILY acetaminophen [Tylenol Extra Strength] 500 mg Tablet 1,000 mg PO QID PRN (Reason: Mild Pain (Scale Score 1-4)) vitamin B complex Tablet 1 tab PO DAILY bisoprolol-hydrochlorothiazide 10-6.25 mg tablet 1 tab PO DAILY 30 Days Qty: 30 0RF amlodipine 10 mg tablet 1 tab PO DAILY 30 Days Qty: 30 0RF Discontinued aripiprazole [Abilify] 30 mg Tablet 30 mg PO DAILY 30 Days Qty: 30 0RF Abilify Maintena 400 mg suspension,extended rel recon 400 mg IM QMONTH Discharge Orders: Discharge Order (Routine); Ordered 09/25/21 Ordered By: Alexander Rodriguez Diet: advance to usual diet Activity on Discharge: As tolerated Stand Alone Forms: Patient Portal Discharge page Care Plan Goals: continue treatment with outpatient providers care plan goals achieved and this admission Health Concerns: continue treatment with primary care physician Plan of Treatment: continue outpatient psychiatric services with Dr. Najera, ECT and clozapine. Assessment: Adult male with a long history of bipolar disorder who was admitted for exacerbation of psychosis, catatonia and joleen. Historically, he responds very well to ECT but in this location even though that he received ECT he did not improved so we need to add Clozaril with for response. At this moment the patient is on 2 antipsychotics clozapine and Abilify Maintena and he will continue receiving ECT once a week for the next 4 weeks.
== END 2021-09-25 12:49 | disposition home or self-care (01) | DRG 753 ==
LOC: HO.ED 16:59 → HO.PADLT16 08-17 00:05 → HO.PM5 08-19 14:48
PROVIDERS: Internal Medicine; Physician Assistant; Psychiatry & Neurology Psychiatry; Social Worker; Student in an Organized Health Care Education/Training Program; Admitting Provider Psychiatry & Neurology Psychiatry; Emergency Provider Internal Medicine; Visit Provider Psychiatry & Neurology Psychiatry
PROC: GZB4ZZZ Other Electroconvulsive Therapy (ICD-10-PCS; CPT 90870; principal; 2021-08-24 17:00)
PROC: (CPT 90870; principal; 2021-09-04 07:00)
DX: F31.64 Bipolar disorder, current episode mixed, severe, with psychotic features (principal); G24.01 Drug induced subacute dyskinesia; I12.9 Hypertensive chronic kidney disease with stage 1 through stage 4 chronic kidney disease, or unspecified chronic kidney disease; N18.2 Chronic kidney disease, stage 2 (mild); Z20.822 Contact with and (suspected) exposure to COVID-19; Z79.899 Other long term (current) drug therapy
CPT/HCPCS: 0241U; 36415; 71045; 80048; 80051; 80053; 80061; 80076; 80164; 80307; 81001; 81003; 82043; 82077; 82140; 82550; 82565; 82607; 82746; 83036; 83540; 83615; 83735; 84156; 84443; 84520; 85025; 85027; 85048; 85652; 86038; 86039; 86431; 86617; 86618; 87040; 87635; 90870; 92950; 93005; 96372; 99285; J0330; J0401; J0461; J1100; J1885; J2060; J2405; J3230; J3360; T1004

== ENCOUNTER 2021-10-04 07:31 | Day surgery (SDC) | payer OTHER, SELFPAY ==
[2021-10-04] VITALS (7 sets, daily range): BP systolic 138–189; BP diastolic 83–97; PULSE 74–93; RESP 16–18; TEMP 36.5–36.9; O2SAT 95–99; BMI 28.0
--- NOTE | 2021-10-04 08:35 | HO.ANESPROP2 ---
COUNTS INCLUDE 234 BEDS AT THE [facility] Active Problems Active Problems: All Active Problems (Updated 10/03/21 @ 00:03 by Background Nan) CKD (chronic kidney disease) stage 2, GFR 60-89 ml/min (Acute) Physical exam (Acute) Bipolar affective disorder, mixed, severe, with psychotic behavior (Acute) Bipolar affective, manic, full remis (Acute) Hypertension (Acute) Hyperlipidemia (Acute) Dyskinesia, tardive (Acute) Past Medical History Medical History HTN (hypertension) Kidney problem Family History Family history of problems with anesthesia: No Surgical History History of Problems with Anesthesia: No Social History Social History Household Members: Spouse Household Members Other:: Housing: House Do you presently have visiting nurse or other home services: No Unable to assess alcohol history related to: Unknown Patient Tobacco Use Status: Tobacco use Unknown Second Hand Smoke Exposure: No Advance Directives: No Advance Directives Information Provided: Yes service: No Sexual orientation: Straight/Heterosexual Meds Allergies Allergy/AdvReac Type Severity Reaction Status Date / Time haloperidol [From Haldol] Allergy Unknown Verified 07/22/20 03:38 Home Medications Medication Instructions Recorded Confirmed Last Taken Type acetaminophen 500 mg tablet 1,000 mg PO QID PRN Mild Pain 08/16/21 08/16/21 Unknown History (Tylenol Extra Strength) (Scale Score 1-4) multivitamin 1 tab PO DAILY 08/16/21 08/16/21 Unknown History vitamin B complex 1 tab PO DAILY 08/16/21 08/16/21 Unknown History Exam Exam Date and Time: October 04, 2021 0835 Airway Mallampati Class: III TM Dist: >3cm Neck ROM: Full Loose/Missing/Broken Teeth: No Heart: RRR Lungs: CTA Assessment and Plan Assessment Anesthesia Assessment: Anesthesia Plan Discussed and Chart Reviewed Final Anesthetic Review Family History of Problems with Anesthesia: No History of Problems with Anesthesia: No NPO: Yes ASA Class: II Final Preanesthetic Review: Meds/Allgs Chart Reviewed, Consent Obtained/Reviewed and Anes Risks/Benef Reviewed Patient Risk: Low Procedure Risk: Intermediate Anesthetic Plan Anesthetic Plan: GA Disposition: Standard PACU
[2021-10-04 08:36] LABS: COVID-19 Test Negative (Negative); IDNOW Serial# 16C4AD1C
--- NOTE | 2021-10-04 09:31 | MHC.SHP ---
Pre-Procedural Eval Section A Date of Service: 10/04/21 The patient is an INPATIENT: No Changes since office visit: No Cold of Flu in the past 2 weeks, No New Medical Problems, No Changes in Medication and No Patient answered all questions The History & Physical has been completed within 30 days and I have reviewed it.: Yes Section B Chief Complaint: depression Allergies: Allergies Allergy/AdvReac Type Severity Reaction Status Date / Time haloperidol [From Haldol] Allergy Unknown Verified 07/22/20 03:38 Plan I have reviewed the history and physical and performed a pertinent physical examination on my patient. No changes have occurred unless specified.
--- NOTE | 2021-10-04 09:40 | P.PCN_ITS ---
ECT Procedure Note Diagnosis/Treatment Date of Service: 10/04/21 Diagnosis: Bipolar disorder Previous ECT Date: 09/25/21 Treatment: Maintenance Interval Clinical Notes: reports he's good and feeling close to back to his regular self; denies side- effects ECT Settings Device: THYMATRON DGx Electrode Placement: Bitemporal Program/Pulse Width: 0.50 Energy Percent: 100 Seizure Duration By EEG (in seconds): 46 By Motor Observation (in seconds): 33 Medications Administration General Anesthetic: Etomidate Muscle Relaxant: Rocuronium Ancillary Medications Analgesics: Torodol - Pre ECT Anti-emetics: Zofran - Pre ECT Miscillaneous Medications: Other (sugammadex (reversal)) Airway Management Airway Management: Bag Mask Ventilation Treatment Recommendations No Changes Recommended: No change Pt Tolerated Procedure w/o Issue: Yes
[2021-10-04 10:27] LABS: Basophils Percent Auto 0.3 % (0-2); Eosinophils Absolute Auto 0.5 X10*3/uL (0.0-0.4); Eosinophils Percent Auto 6.6 % (0-4); Hematocrit 41.8 % (42.0-52.0); Hemoglobin 14.1 g/dl (14.0-18.0); Imm Gran Abs Auto 0.05 X10*3/uL (0.00-0.03); Imm Gran Pct Auto 0.7 % (0.0-0.4); Lymphocytes Absolute Auto 1.3 X10*3/uL (1.2-4.9); Lymphocytes Percent Auto 18.9 % (20-40); MANUAL DIFF FLAG SCAN; Mean Corpuscular HGB Conc 33.7 g/dl (31.0-36.0); Mean Corpuscular Hemoglobin 29.6 pg (27.0-33.0); Mean Corpuscular Volume 87.6 fL (80.0-98.0); Mean Platelet Volume 9.9 fL (9.4-12.4); Monocytes Absolute Auto 0.5 X10*3/uL (0.1-1.2); Monocytes Percent Auto 7.1 % (2-11); Neutrophils Absolute Auto 4.6 x10*3/uL (2.0-8.3); Neutrophils Percent Auto 66.4 % (45-73); PLT CLUMP 1; Red Blood Count 4.77 X10*6/uL (4.60-5.80); Red Cell Distribution Width 13.4 % (11.0-16.0); SCAN SMEAR FLAG 1
[2021-10-04 10:28] LABS: White Blood Count 6.9 X10*3/uL (4.8-10.8)
[2021-10-04 10:43] LABS: Platelet Count 164 X10*3/uL (160-400)
[2021-10-04 10:44] LABS: SLIDE REVIEW VERIFIED
== END 2021-10-04 11:05 | disposition home or self-care (01) ==
PROVIDERS: Visit Provider Psychiatry & Neurology Psychiatry
PROC: (CPT 90870; principal; 2021-10-04 09:30)
DX: F31.9 Bipolar disorder, unspecified (principal); R41.0 Disorientation, unspecified; R41.89 Other symptoms and signs involving cognitive functions and awareness; I10 Essential (primary) hypertension; E78.5 Hyperlipidemia, unspecified; Z88.8 Allergy status to other drugs, medicaments and biological substances; Z20.822 Contact with and (suspected) exposure to COVID-19
CPT/HCPCS: 36415; 85025; 87635; 90870; J2405

== ENCOUNTER 2021-10-11 05:53 | Day surgery (SDC) | payer OTHER, SELFPAY ==
[2021-10-11 06:24] VITALS: BMI 28.0
[2021-10-11 06:39] LABS: COVID-19 Test Negative (Negative)
--- NOTE | 2021-10-11 06:41 | P.CONAN_ITS ---
[facility] Active Problems Active Problems: All Active Problems (Updated 10/03/21 @ 00:03 by Anthony Stoddardcasie) CKD (chronic kidney disease) stage 2, GFR 60-89 ml/min (Acute) Physical exam (Acute) Bipolar affective disorder, mixed, severe, with psychotic behavior (Acute) Bipolar affective, manic, full remis (Acute) Hypertension (Acute) Hyperlipidemia (Acute) Dyskinesia, tardive (Acute) Past Medical History Medical History HTN (hypertension) Kidney problem Family History Family history of problems with anesthesia: No Surgical History History of Problems with Anesthesia: No Social History Social History Household Members: Spouse Household Members Other:: Housing: House Do you presently have visiting nurse or other home services: No Unable to assess alcohol history related to: Unknown Patient Tobacco Use Status: Never used Tobacco Second Hand Smoke Exposure: No Use of substances other than those prescribed or required for medical reasons: No Are you DNR?: No Advance Directives: No Advance Directives Information Provided: Yes service: No Sexual orientation: Straight/Heterosexual Meds Allergies Allergy/AdvReac Type Severity Reaction Status Date / Time haloperidol [From Haldol] Allergy Unknown Verified 07/22/20 03:38 Home Medications Medication Instructions Recorded Confirmed Last Taken Type acetaminophen 500 mg tablet 1,000 mg PO QID PRN Mild Pain 08/16/21 08/16/21 Unknown History (Tylenol Extra Strength) (Scale Score 1-4) multivitamin 1 tab PO DAILY 08/16/21 08/16/21 Unknown History vitamin B complex 1 tab PO DAILY 08/16/21 08/16/21 Unknown History Exam Exam Date and Time: October 11, 2021 0641 Height,Weight and Vital Signs: Height 6 ft 2 in Weight 98.883 kg Pertinent Lab Results Pertinent Lab Results: Laboratory Tests 10/11/21 06:14 COVID-19 (URI) Negative COVID-19 Clin Com See Note Airway Mallampati Class: II TM Dist: >3cm Neck ROM: Full Heart: rrr Lungs: cta Assessment and Plan Assessment Anesthesia Assessment: Anesthesia Plan Discussed and Chart Reviewed Final Anesthetic Review Family History of Problems with Anesthesia: No History of Problems with Anesthesia: No NPO: Yes ASA Class: III Final Preanesthetic Review: No Changes in Pt Med Stat, Meds/Allgs Chart Reviewed and Consent Obtained/Reviewed Patient Risk: Intermediate Procedure Risk: Intermediate Anesthetic Plan Anesthetic Plan: GA Disposition: Standard PACU
--- NOTE | 2021-10-11 07:06 | MHC.SHP ---
Pre-Procedural Eval Section A Date of Service: 10/11/21 The patient is an INPATIENT: No Changes since office visit: No Cold of Flu in the past 2 weeks, No New Medical Problems, No Changes in Medication and No Patient answered all questions The History & Physical has been completed within 30 days and I have reviewed it.: Yes Section B Chief Complaint: depression Allergies: Allergies Allergy/AdvReac Type Severity Reaction Status Date / Time haloperidol [From Haldol] Allergy Unknown Verified 07/22/20 03:38 Plan I have reviewed the history and physical and performed a pertinent physical examination on my patient. No changes have occurred unless specified.
--- NOTE | 2021-10-11 07:07 | HO.ECTPROC ---
ECT Procedure Note Diagnosis/Treatment Date of Service: 10/11/21 Diagnosis: Bipolar disorder Previous ECT Date: 10/11/21 Treatment: Maintenance Interval Clinical Notes: The patient reported been OK, no evidence of psychosis or joleen. No side effects with previous ECT. ECT Settings Device: THYMATRON DGx Electrode Placement: Bitemporal Program/Pulse Width: 0.50 Energy Percent: 100 Seizure Duration By EEG (in seconds): 51 By Motor Observation (in seconds): 26 Medications Administration General Anesthetic: Etomidate (14) Muscle Relaxant: Rocuronium (with later reversal) Ancillary Medications Analgesics: Torodol - Pre ECT Anti-emetics: Zofran - Pre ECT Airway Management Airway Management: Bag Mask Ventilation Treatment Recommendations No Changes Recommended: No change Pt Tolerated Procedure w/o Issue: Yes
[2021-10-11 07:34] VITALS: BP 121/88; PULSE 77; RESP 16; TEMP 36.8; O2SAT 99
[2021-10-11 07:39] VITALS: BP 132/87; PULSE 82; RESP 10; O2SAT 99
[2021-10-11 07:44] VITALS: BP 132/92; PULSE 83; RESP 23; O2SAT 99
[2021-10-11 07:49] VITALS: BP 131/90; PULSE 89; RESP 16; TEMP 36.6; O2SAT 100
[2021-10-11 07:58] LABS: MANUAL DIFF FLAG NO
[2021-10-11 08:04] VITALS: BP 127/84; PULSE 86; RESP 20; TEMP 36.8; O2SAT 96
[2021-10-11 08:04] LABS: Basophils Percent Auto 0.2 % (0-2); Eosinophils Absolute Auto 0.5 X10*3/uL (0.0-0.4); Eosinophils Percent Auto 6.1 % (0-4); Hematocrit 40.7 % (42.0-52.0); Hemoglobin 13.4 g/dl (14.0-18.0); Imm Gran Abs Auto 0.13 X10*3/uL (0.00-0.03); Imm Gran Pct Auto 1.6 % (0.0-0.4); Lymphocytes Absolute Auto 2.3 X10*3/uL (1.2-4.9); Lymphocytes Percent Auto 27.2 % (20-40); Mean Corpuscular HGB Conc 32.9 g/dl (31.0-36.0); Mean Corpuscular Hemoglobin 29.2 pg (27.0-33.0); Mean Corpuscular Volume 88.7 fL (80.0-98.0); Mean Platelet Volume 9.3 fL (9.4-12.4); Monocytes Absolute Auto 0.9 X10*3/uL (0.1-1.2); Monocytes Percent Auto 10.9 % (2-11); Neutrophils Absolute Auto 4.5 x10*3/uL (2.0-8.3); Platelet Count 241 X10*3/uL (160-400); Red Blood Count 4.59 X10*6/uL (4.60-5.80); Red Cell Distribution Width 13.2 % (11.0-16.0); White Blood Count 8.4 X10*3/uL (4.8-10.8)
== END 2021-10-11 08:55 | disposition home or self-care (01) ==
PROVIDERS: Visit Provider Psychiatry & Neurology Psychiatry
PROC: (CPT 90870; principal; 2021-10-11 07:00)
DX: F31.9 Bipolar disorder, unspecified (principal); I10 Essential (primary) hypertension; Z79.899 Other long term (current) drug therapy; Z88.8 Allergy status to other drugs, medicaments and biological substances; Z20.822 Contact with and (suspected) exposure to COVID-19
CPT/HCPCS: 36415; 85025; 87635; 90870; J2405

== ENCOUNTER 2021-10-18 05:56 | Day surgery (SDC) | payer OTHER, SELFPAY ==
[2021-10-18] VITALS (7 sets, daily range): BP systolic 129–145; BP diastolic 81–94; PULSE 73–91; RESP 13–18; TEMP 36.3–37.4; O2SAT 13–100; BMI 28.2
[2021-10-18 06:47] LABS: COVID-19 Test Negative (Negative)
--- NOTE | 2021-10-18 07:05 | MHC.SHP ---
Pre-Procedural Eval Section A Date of Service: 10/18/21 The patient is an INPATIENT: No Changes since office visit: No Cold of Flu in the past 2 weeks, No New Medical Problems, No Changes in Medication and No Patient answered all questions The History & Physical has been completed within 30 days and I have reviewed it.: Yes Section B Chief Complaint: depression Allergies: Allergies Allergy/AdvReac Type Severity Reaction Status Date / Time haloperidol [From Haldol] Allergy Unknown Verified 07/22/20 03:38 Plan I have reviewed the history and physical and performed a pertinent physical examination on my patient. No changes have occurred unless specified.
--- NOTE | 2021-10-18 07:11 | P.CONAN_ITS ---
[facility] Active Problems Active Problems: All Active Problems (Updated 10/03/21 @ 00:03 by Anthony Montana) CKD (chronic kidney disease) stage 2, GFR 60-89 ml/min (Acute) Physical exam (Acute) Bipolar affective disorder, mixed, severe, with psychotic behavior (Acute) Bipolar affective, manic, full remis (Acute) Hypertension (Acute) Hyperlipidemia (Acute) Dyskinesia, tardive (Acute) Past Medical History Medical History HTN (hypertension) Kidney problem Family History Family history of problems with anesthesia: No Surgical History History of Problems with Anesthesia: No Social History Social History Household Members: Spouse Household Members Other:: Housing: House Do you presently have visiting nurse or other home services: No Unable to assess alcohol history related to: Unknown Patient Tobacco Use Status: Never used Tobacco Second Hand Smoke Exposure: No Advance Directives: No Advance Directives Information Provided: Yes service: No Sexual orientation: Straight/Heterosexual Meds Allergies Allergy/AdvReac Type Severity Reaction Status Date / Time haloperidol [From Haldol] Allergy Unknown Verified 07/22/20 03:38 Home Medications Medication Instructions Recorded Confirmed Last Taken Type acetaminophen 500 mg tablet 1,000 mg PO QID PRN Mild Pain 08/16/21 08/16/21 Unknown History (Tylenol Extra Strength) (Scale Score 1-4) multivitamin 1 tab PO DAILY 08/16/21 08/16/21 Unknown History vitamin B complex 1 tab PO DAILY 08/16/21 08/16/21 Unknown History Exam Exam Date and Time: October 18, 2021 0711 Height,Weight and Vital Signs: Height 6 ft 2 in Weight 99.79 kg Last Vital Signs Temp 97.4 F 10/18/21 06:28 Pulse 75 10/18/21 06:28 Resp 18 10/18/21 06:28 BP 137/84 10/18/21 06:28 Pulse Ox 100 10/18/21 06:28 O2 Del Method 10/18/21 06:28 Pertinent Lab Results Pertinent Lab Results: Laboratory Tests 10/18/21 06:10 COVID-19 (URI) Negative COVID-19 Clin Com See Note Airway Mallampati Class: III TM Dist: >3cm Neck ROM: Full Loose/Missing/Broken Teeth: No Heart: RRR Lungs: CTA Assessment and Plan Final Anesthetic Review Family History of Problems with Anesthesia: No History of Problems with Anesthesia: No ASA Class: II Final Preanesthetic Review: Meds/Allgs Chart Reviewed, Consent Obtained/Reviewed and Anes Risks/Benef Reviewed Patient Risk: Low Anesthetic Plan Anesthetic Plan: GA Disposition: Standard PACU
--- NOTE | 2021-10-18 07:24 | HO.ECTPROC ---
ECT Procedure Note Diagnosis/Treatment Date of Service: 10/18/21 Diagnosis: Bipolar disorder Previous ECT Date: 10/11/21 Treatment: Maintenance Interval Clinical Notes: The patient reported been asymptomatic. He is reluctant to have ECT frequently, psychoeducation was provided and we will have a conference with his providers and family about the frequency of ECT. ECT Settings Device: THYMATRON DGx Electrode Placement: Bitemporal Program/Pulse Width: 0.50 Energy Percent: 100 Seizure Duration By EEG (in seconds): 59 By Motor Observation (in seconds): 21 Medications Administration General Anesthetic: Etomidate (14) Muscle Relaxant: Rocuronium (50 with reversal) Ancillary Medications Analgesics: Torodol - Pre ECT Anti-emetics: Zofran - Pre ECT Airway Management Airway Management: Bag Mask Ventilation Treatment Recommendations No Changes Recommended: No change Pt Tolerated Procedure w/o Issue: Yes
== END 2021-10-18 09:08 | disposition home or self-care (01) ==
PROVIDERS: Visit Provider Psychiatry & Neurology Psychiatry
PROC: (CPT 90870; principal; 2021-10-18 07:00)
DX: F31.9 Bipolar disorder, unspecified (principal); I10 Essential (primary) hypertension; N28.9 Disorder of kidney and ureter, unspecified; Z79.899 Other long term (current) drug therapy; Z88.8 Allergy status to other drugs, medicaments and biological substances; Z20.822 Contact with and (suspected) exposure to COVID-19
CPT/HCPCS: 87635; 90870; J2405

== ENCOUNTER 2021-10-25 05:51 | Day surgery (SDC) | payer OTHER, SELFPAY ==
[2021-10-25] VITALS (7 sets, daily range): BP systolic 126–153; BP diastolic 65–91; PULSE 65–95; RESP 13–18; TEMP 36.2–37.2; O2SAT 95–97; BMI 28.5
[2021-10-25 06:42] LABS: COVID-19 Test Negative (Negative); IDNOW Serial# 9DB6401D
--- NOTE | 2021-10-25 06:59 | HO.ANESPROP2 ---
[facility] Active Problems Active Problems: All Active Problems (Updated 10/03/21 @ 00:03 by Background Nan) CKD (chronic kidney disease) stage 2, GFR 60-89 ml/min (Acute) Physical exam (Acute) Bipolar affective disorder, mixed, severe, with psychotic behavior (Acute) Bipolar affective, manic, full remis (Acute) Hypertension (Acute) Hyperlipidemia (Acute) Dyskinesia, tardive (Acute) Past Medical History Medical History HTN (hypertension) Kidney problem Family History Family history of problems with anesthesia: No Surgical History History of Problems with Anesthesia: No Social History Social History Household Members: Spouse Household Members Other:: Housing: House Do you presently have visiting nurse or other home services: No Unable to assess alcohol history related to: Unknown Patient Tobacco Use Status: Never used Tobacco Second Hand Smoke Exposure: No Advance Directives: No Advance Directives Information Provided: Yes service: No Sexual orientation: Straight/Heterosexual Meds Allergies Allergy/AdvReac Type Severity Reaction Status Date / Time haloperidol [From Haldol] Allergy Unknown Verified 07/22/20 03:38 Active Medications: Current Medications Lactated Ringer's (Lr) 1,000 mls @ 50 mls/hr IVCONT .Q20H [facility] Home Medications Medication Instructions Recorded Confirmed Last Taken Type acetaminophen 500 mg tablet 1,000 mg PO QID PRN Mild Pain 08/16/21 08/16/21 Unknown History (Tylenol Extra Strength) (Scale Score 1-4) multivitamin 1 tab PO DAILY 08/16/21 08/16/21 Unknown History vitamin B complex 1 tab PO DAILY 08/16/21 08/16/21 Unknown History Exam Exam Date and Time: October 25, 2021 0659 Height,Weight and Vital Signs: Height 6 ft 2 in Weight 100.698 kg Last Vital Signs Temp 97.5 F 10/25/21 06:46 Pulse 74 10/25/21 06:46 Resp 18 10/25/21 06:46 BP 138/87 10/25/21 06:46 Pulse Ox 97 10/25/21 06:46 O2 Del Method 10/25/21 06:46 Pertinent Lab Results Pertinent Lab Results: Laboratory Tests 10/25/21 06:17 COVID-19 (URI) Negative COVID-19 Clin Com See Note Airway Mallampati Class: II TM Dist: >3cm Neck ROM: Full Heart: rrr Lungs: cta Assessment and Plan Assessment Anesthesia Assessment: Anesthesia Plan Discussed and Chart Reviewed Final Anesthetic Review Family History of Problems with Anesthesia: No History of Problems with Anesthesia: No NPO: Yes ASA Class: III Final Preanesthetic Review: No Changes in Pt Med Stat, Meds/Allgs Chart Reviewed and Consent Obtained/Reviewed Patient Risk: Intermediate Procedure Risk: Intermediate Anesthetic Plan Anesthetic Plan: GA Disposition: Standard PACU
--- NOTE | 2021-10-25 07:09 | P.HPSUR_ITS ---
Pre-Procedural Eval Section A Date of Service: 10/25/21 The patient is an INPATIENT: No Changes since office visit: No Cold of Flu in the past 2 weeks, No New Medical Problems, No Changes in Medication and No Patient answered all questions The History & Physical has been completed within 30 days and I have reviewed it.: Yes Section B Chief Complaint: depression Details of Present Illness: Hx of psychosis and joleen that responds only to ECT. Relevant Family History (Specify if Yes): Yes Relevant Social History: None Present Medications: see Short Stay Collaborative assessment Medical History: Significant History (hx of CKD due to [place]) History of Previous Operations: No relevant previous surgery Allergies: Allergies Allergy/AdvReac Type Severity Reaction Status Date / Time haloperidol [From Haldol] Allergy Unknown Verified 07/22/20 03:38 Review of Systems Sugical H&P ROS: Negative: Constitution, Cardiovascular, Respiratory, Neurological, Psychiatric, Hem-Onc, Allergic/Immunologic, Gastrointestinal, Genitourinary, Musculoskeletal, Integumentary, Endocrine and Eyes/Ears/Nose/Throat Exam Surgical H&P Exam: Normal: HEENT, Normal: Heart, Normal: Lungs, Normal: Extremities, Normal: Abdomen, Normal: Skin and Normal: Neurological Plan Diagnosis/Plan: Unchanged I have reviewed the history and physical and performed a pertinent physical examination on my patient. No changes have occurred unless specified.
--- NOTE | 2021-10-25 07:53 | HO.ECTPROC ---
ECT Procedure Note Diagnosis/Treatment Date of Service: 10/25/21 Diagnosis: Bipolar disorder Previous ECT Date: 10/18/21 Current Treatment Number: Other (18) Treatment: Maintenance Interval Clinical Notes: The patient reporet been at baseline. We are going to discuss about the maintenance schedule with his regular psychiatrist. ECT Settings Device: THYMATRON DGx Electrode Placement: Bitemporal Program/Pulse Width: 0.50 Energy Percent: 100 Seizure Duration By EEG (in seconds): 110 By Motor Observation (in seconds): 35 Medications Administration General Anesthetic: Etomidate (14) Muscle Relaxant: Rocuronium (50 mg with reversal) Ancillary Medications Analgesics: Torodol - Pre ECT Anti-emetics: Zofran - Pre ECT Treatment Recommendations No Changes Recommended: No change Pt Tolerated Procedure w/o Issue: Yes
--- NOTE | 2021-10-25 08:21 | HO.ANESPROP2 ---
[facility] Active Problems Active Problems: All Active Problems (Updated 10/03/21 @ 00:03 by Anthony Montana) CKD (chronic kidney disease) stage 2, GFR 60-89 ml/min (Acute) Physical exam (Acute) Bipolar affective disorder, mixed, severe, with psychotic behavior (Acute) Bipolar affective, manic, full remis (Acute) Hypertension (Acute) Hyperlipidemia (Acute) Dyskinesia, tardive (Acute) Past Medical History Medical History HTN (hypertension) Kidney problem Family History Family history of problems with anesthesia: No Surgical History History of Problems with Anesthesia: No Social History Social History Household Members: Spouse Household Members Other:: Housing: House Do you presently have visiting nurse or other home services: No Unable to assess alcohol history related to: Unknown Patient Tobacco Use Status: Never used Tobacco Second Hand Smoke Exposure: No Advance Directives: No Advance Directives Information Provided: Yes service: No Sexual orientation: Straight/Heterosexual Meds Allergies Allergy/AdvReac Type Severity Reaction Status Date / Time haloperidol [From Haldol] Allergy Unknown Verified 07/22/20 03:38 Active Medications: Current Medications Lactated Ringer's (Lr) 1,000 mls @ 50 mls/hr IVCONT .Q20H [facility] Lactated Ringer's (Lr) 1,000 mls @ 50 mls/hr IVCONT .Q20H [facility] Home Medications Medication Instructions Recorded Confirmed Last Taken Type acetaminophen 500 mg tablet 1,000 mg PO QID PRN Mild Pain 08/16/21 08/16/21 Unknown History (Tylenol Extra Strength) (Scale Score 1-4) multivitamin 1 tab PO DAILY 08/16/21 08/16/21 Unknown History vitamin B complex 1 tab PO DAILY 08/16/21 08/16/21 Unknown History Exam Exam Date and Time: October 25, [id number] Height,Weight and Vital Signs: Height 6 ft 2 in Weight 100.698 kg Last Vital Signs Temp 97.5 F 10/25/21 06:46 Pulse 74 10/25/21 06:46 Resp 18 10/25/21 06:46 BP 138/87 10/25/21 06:46 Pulse Ox 97 10/25/21 06:46 O2 Del Method 10/25/21 06:46 Pertinent Lab Results Pertinent Lab Results: Laboratory Tests 10/25/21 06:17 COVID-19 (URI) Negative COVID-19 Clin Com See Note Airway Mallampati Class: II TM Dist: >3cm Neck ROM: Full Partial: Lower (Unable to remove) Heart: rrr Lungs: cta Assessment and Plan Assessment Anesthesia Assessment: Anesthesia Plan Discussed and Chart Reviewed Final Anesthetic Review Family History of Problems with Anesthesia: No History of Problems with Anesthesia: No NPO: Yes ASA Class: III Final Preanesthetic Review: No Changes in Pt Med Stat, Meds/Allgs Chart Reviewed and Consent Obtained/Reviewed Patient Risk: Intermediate Procedure Risk: Intermediate Anesthetic Plan Anesthetic Plan: GA Disposition: Standard PACU
== END 2021-10-25 10:02 | disposition home or self-care (01) ==
PROVIDERS: Visit Provider Psychiatry & Neurology Psychiatry
PROC: (CPT 90870; principal; 2021-10-25 07:00)
DX: F31.64 Bipolar disorder, current episode mixed, severe, with psychotic features (principal); I12.9 Hypertensive chronic kidney disease with stage 1 through stage 4 chronic kidney disease, or unspecified chronic kidney disease; N18.2 Chronic kidney disease, stage 2 (mild); G24.01 Drug induced subacute dyskinesia; E78.5 Hyperlipidemia, unspecified; Z79.899 Other long term (current) drug therapy; Z88.8 Allergy status to other drugs, medicaments and biological substances; Z20.822 Contact with and (suspected) exposure to COVID-19
CPT/HCPCS: 87635; 90870; J2405

== ENCOUNTER 2021-11-15 05:59 | Day surgery (SDC) | payer OTHER, SELFPAY ==
[2021-11-15] VITALS (8 sets, daily range): BP systolic 124–140; BP diastolic 74–85; PULSE 70–93; RESP 12–21; TEMP 36.4–37.2; O2SAT 93–97; BMI 28.2
[2021-11-15 06:34] LABS: COVID-19 Test Negative (Negative)
--- NOTE | 2021-11-15 07:48 | MHC.SHP ---
Pre-Procedural Eval Section A Date of Service: 11/15/21 The patient is an INPATIENT: No Changes since office visit: Yes Patient answered all questions; No Cold of Flu in the past 2 weeks, No New Medical Problems and No Changes in Medication Section B Chief Complaint: depression Details of Present Illness: hx catatonia Relevant Social History: None Present Medications: see Short Stay Collaborative assessment Medical History: Significant History (ckd) Allergies: Allergies Allergy/AdvReac Type Severity Reaction Status Date / Time haloperidol [From Haldol] Allergy Unknown Verified 07/22/20 03:38 Review of Systems Sugical H&P ROS: Negative: Cardiovascular and Respiratory and Yes, Specify: Psychiatric (some anxiety) Exam Surgical H&P Exam: Normal: Heart and Normal: Lungs Plan Diagnosis/Plan: Unchanged I have reviewed the history and physical and performed a pertinent physical examination on my patient. No changes have occurred unless specified.
--- NOTE | 2021-11-15 08:06 | P.PCN_ITS ---
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
--- NOTE | 2021-11-15 08:31 | HO.ANESPROP2 ---
HPI - Anesthesia Eval Consult details Narrative: 46 yo male patient for ECT [facility] Active Problems Active Problems: All Active Problems (Updated 10/03/21 @ 00:03 by Anthony Montana) CKD (chronic kidney disease) stage 2, GFR 60-89 ml/min (Acute) Physical exam (Acute) Bipolar affective disorder, mixed, severe, with psychotic behavior (Acute) Bipolar affective, manic, full remis (Acute) Hypertension (Acute) Hyperlipidemia (Acute) Dyskinesia, tardive (Acute) Past Medical History Medical History HTN (hypertension) Kidney problem Family History Family history of problems with anesthesia: No Surgical History History of Problems with Anesthesia: No Social History Social History Household Members: Spouse Household Members Other:: Housing: House Do you presently have visiting nurse or other home services: No Unable to assess alcohol history related to: Unknown Patient Tobacco Use Status: Never used Tobacco Second Hand Smoke Exposure: No Advance Directives: No Advance Directives Information Provided: Yes service: No Sexual orientation: Straight/Heterosexual Meds Allergies Allergy/AdvReac Type Severity Reaction Status Date / Time haloperidol [From Haldol] Allergy Unknown Verified 07/22/20 03:38 Home Medications Medication Instructions Recorded Confirmed Last Taken Type acetaminophen 500 mg tablet 1,000 mg PO QID PRN Mild Pain 08/16/21 08/16/21 Unknown History (Tylenol Extra Strength) (Scale Score 1-4) multivitamin 1 tab PO DAILY 08/16/21 08/16/21 Unknown History vitamin B complex 1 tab PO DAILY 08/16/21 08/16/21 Unknown History Exam Exam Date and Time: November 15, [id number] Height,Weight and Vital Signs: Height 6 ft 2 in Weight 99.79 kg Vital Signs Temp Pulse Resp BP Pulse Ox O2 Del Method 97.8 F 78 18 131/84 97 11/15/21 06:39 11/15/21 06:39 11/15/21 06:39 11/15/21 06:39 11/15/21 06:39 11/15/21 06:39 Temp 99.0 F 11/15/21 08:12 Pulse 89 11/15/21 08:27 Resp 19 11/15/21 08:27 BP 140/76 H 11/15/21 08:27 Pulse Ox 95 11/15/21 08:27 O2 Del Method 11/15/21 08:27 O2 Flow Rate 2 11/15/21 08:22 Pertinent Lab Results Pertinent Lab Results: Laboratory Tests 11/15/21 06:15 COVID-19 (URI) Negative COVID-19 Clin Com See Note Airway Mallampati Class: II TM Dist: >3cm Neck ROM: Full Partial: Lower Loose/Missing/Broken Teeth: No (No lloose or broken teeth per patient) Heart: RRR Lungs: CTAB Assessment and Plan Assessment Anesthesia Assessment: Anesthesia Plan Discussed and Chart Reviewed Final Anesthetic Review Family History of Problems with Anesthesia: No History of Problems with Anesthesia: No NPO: Yes ASA Class: III Final Preanesthetic Review: No Changes in Pt Med Stat, Meds/Allgs Chart Reviewed, Consent Obtained/Reviewed and Anes Risks/Benef Reviewed Patient Risk: Intermediate Procedure Risk: Intermediate Assessment/Block/Sedation in SS: Assess/Block/Sedation-SS Anesthetic Plan Anesthetic Plan: GA Disposition: Standard PACU
[2021-11-15 08:50] LABS: MANUAL DIFF FLAG NO
[2021-11-15 08:55] LABS: Basophils Percent Auto 0.6 % (0-2); Eosinophils Absolute Auto 0.2 X10*3/uL (0.0-0.4); Eosinophils Percent Auto 3.4 % (0-4); Hematocrit 39.1 % (42.0-52.0); Hemoglobin 13.7 g/dl (14.0-18.0); Imm Gran Abs Auto 0.19 X10*3/uL (0.00-0.03); Imm Gran Pct Auto 2.9 % (0.0-0.4); Lymphocytes Absolute Auto 1.1 X10*3/uL (1.2-4.9); Lymphocytes Percent Auto 16.6 % (20-40); Mean Corpuscular Hemoglobin 29.6 pg (27.0-33.0); Mean Corpuscular Volume 84.4 fL (80.0-98.0); Mean Platelet Volume 9.2 fL (9.4-12.4); Monocytes Absolute Auto 0.6 X10*3/uL (0.1-1.2); Monocytes Percent Auto 8.8 % (2-11); Neutrophils Absolute Auto 4.4 x10*3/uL (2.0-8.3); Neutrophils Percent Auto 67.7 % (45-73); Platelet Count 211 X10*3/uL (160-400); Red Blood Count 4.63 X10*6/uL (4.60-5.80); White Blood Count 6.6 X10*3/uL (4.8-10.8)
[2021-11-15 09:21] LABS: Alanine Aminotransferase 27 U/L (0-40); Albumin Level 4.3 g/dL (3.5-5.0); Alkaline Phosphatase 59 U/L (39-117); Anion Gap 16 (12-20); Aspartate Amino Transferase 22 U/L (5-37); Bilirubin Total 0.4 mg/dL (0.0-1.0); Blood Urea Nitrogen 22 mg/dL (9-16); Calcium 9.1 mg/dL (8.4-10.2); Carbon Dioxide 22 mmol/L (22-29); Chloride 107 mmol/L (96-108); Creatinine Clr Calc Pharmacy 97.5; Estimated Glomerular Filt Rate > 60; Glucose Random 112 mg/dL (60-115); Sodium 141 mmol/L (135-145); Total Protein 7.4 g/dL (6.5-8.0)
== END 2021-11-15 09:44 | disposition home or self-care (01) ==
PROVIDERS: Visit Provider Psychiatry & Neurology Psychiatry
PROC: (CPT 90870; principal; 2021-11-15 08:00)
DX: F33.3 Major depressive disorder, recurrent, severe with psychotic symptoms (principal); I10 Essential (primary) hypertension; Z79.899 Other long term (current) drug therapy; Z88.8 Allergy status to other drugs, medicaments and biological substances; Z20.822 Contact with and (suspected) exposure to COVID-19
CPT/HCPCS: 36415; 80053; 80159; 85025; 87635; 90870; J2405

== ENCOUNTER 2021-11-29 06:00 | Day surgery (SDC) | payer OTHER, SELFPAY ==
[2021-11-29] VITALS (9 sets, daily range): BP systolic 111–131; BP diastolic 77–88; PULSE 88–95; RESP 14–16; TEMP 36.5–37.1; O2SAT 94–97; BMI 29.0
[2021-11-29 07:04] LABS: COVID-19 Test Negative (Negative)
--- NOTE | 2021-11-29 07:13 | MHC.SHP ---
Pre-Procedural Eval Section A Date of Service: 11/29/21 Changes since office visit: Yes Patient answered all questions; No Cold of Flu in the past 2 weeks, No New Medical Problems and No Changes in Medication The History & Physical has been completed within 30 days and I have reviewed it.: No Section B Chief Complaint: depression Details of Present Illness: bipolar dx catatonia hx Relevant Social History: None Present Medications: see Short Stay Collaborative assessment Medical History: Significant History (ckd) History of Previous Operations: Relevant previous surgery/procedure and date(s) (ect) Allergies: Allergies Allergy/AdvReac Type Severity Reaction Status Date / Time haloperidol [From Haldol] Allergy Unknown Verified 07/22/20 03:38 Review of Systems Sugical H&P ROS: Negative: Cardiovascular, Respiratory and Neurological and Yes, Specify: Psychiatric (anxiety) Exam Surgical H&P Exam: Normal: Heart and Normal: Lungs Plan Diagnosis/Plan: Unchanged I have reviewed the history and physical and performed a pertinent physical examination on my patient. No changes have occurred unless specified.
--- NOTE | 2021-11-29 08:01 | HO.ECTPROC ---
ECT Procedure Note Diagnosis/Treatment Date of Service: 11/29/21 Diagnosis: Bipolar disorder Previous ECT Date: 11/15/21 Treatment: Maintenance and Other Interval Clinical Notes: Patient is generally been stable patient has generally been stable and although some anxiety regarding ECT and anesthesia related issues this was discussed with the patient prior to the procedure. Patient is managed psychiatrically by Dr. Najera he is on Abilify injection and Clozaril ECT Settings Device: THYMATRON DGx Electrode Placement: Rt temporal/ Lt frontal Program/Pulse Width: 0.50 Energy Percent: 100 Seizure Duration By EEG (in seconds): 27 Medications Administration General Anesthetic: Etomidate (16 plus 4) Muscle Relaxant: Rocuronium (50) Ancillary Medications Anti-emetics: Zofran - Pre ECT Airway Management Airway Management: Bag Mask Ventilation Treatment Recommendations Electrode Placement: Rt temporal/ Lt frontal Program/Pulse Width: 0.50 Notes: Patient was not initially sedated with etomidate but that appears to be because of an infiltrated IV the intravenous needed to be changed and during the initial induction received 20 of etomidate than of 100 of propofol through the 2nd IV 50 of rocuronium 2 mg of Versed post will try four week maintenance schedule reviewed with patient
--- NOTE | 2021-11-29 08:33 | P.CONAN_ITS ---
HPI - Anesthesia Eval Consult details Narrative: 46 yo male patient for ECT FORMERLY [facility], [facility] Active Problems Active Problems: All Active Problems (Updated 10/03/21 @ 00:03 by Anthony Montana) CKD (chronic kidney disease) stage 2, GFR 60-89 ml/min (Acute) Physical exam (Acute) Bipolar affective disorder, mixed, severe, with psychotic behavior (Acute) Bipolar affective, manic, full remis (Acute) Hypertension (Acute) Hyperlipidemia (Acute) Dyskinesia, tardive (Acute) Past Medical History Medical History HTN (hypertension) Kidney problem Family History Family history of problems with anesthesia: No Surgical History History of Problems with Anesthesia: No (C/o being aware of trying to wake up post ECT- trying to wake up but couldn't fully , fell back asleep, was incontinent of urine at some point. This was not awareness under anesthesia. Was not aware of actual ECT. Reassured,explained normal process of waking up post ECT, each wakeup may be different) Social History Social History Household Members: Spouse Household Members Other:: Housing: House Do you presently have visiting nurse or other home services: No Unable to assess alcohol history related to: Unknown Patient Tobacco Use Status: Never used Tobacco Second Hand Smoke Exposure: No Advance Directives: No Advance Directives Information Provided: Yes service: No Sexual orientation: Straight/Heterosexual Meds Allergies Allergy/AdvReac Type Severity Reaction Status Date / Time haloperidol [From Haldol] Allergy Unknown Verified 07/22/20 03:38 Active Medications: Current Medications Lactated Ringer's (Lr) 1,000 mls @ 50 mls/hr IVCONT .Q20H [facility] Home Medications Medication Instructions Recorded Confirmed Last Taken Type acetaminophen 500 mg tablet 1,000 mg PO QID PRN Mild Pain 08/16/21 08/16/21 Unknown History (Tylenol Extra Strength) (Scale Score 1-4) multivitamin 1 tab PO DAILY 08/16/21 08/16/21 Unknown History vitamin B complex 1 tab PO DAILY 08/16/21 08/16/21 Unknown History Exam Exam Date and Time: November 29, 2021 0833 Height,Weight and Vital Signs: Height 6 ft 2 in Weight 102.512 kg Vital Signs Temp Pulse Resp BP Pulse Ox O2 Del Method 97.7 F 88 16 129/84 97 11/29/21 06:49 11/29/21 06:49 11/29/21 06:49 11/29/21 06:49 11/29/21 06:49 11/29/21 06:49 Pertinent Lab Results Pertinent Lab Results: Laboratory Tests 11/29/21 06:19 COVID-19 (URI) Negative COVID-19 Clin Com See Note Airway Mallampati Class: III TM Dist: >3cm Neck ROM: Full Loose/Missing/Broken Teeth: No Heart: RRR Lungs: CTAB Assessment and Plan Assessment Anesthesia Assessment: Anesthesia Plan Discussed and Chart Reviewed Final Anesthetic Review Family History of Problems with Anesthesia: No History of Problems with Anesthesia: No (C/o being aware of trying to wake up post ECT- trying to wake up but couldn't fully , fell back asleep, was incontinent of urine at some point. This was not awareness under anesthesia. Was not aware of actual ECT. Reassured,explained normal process of waking up post ECT, each wakeup may be different) NPO: Yes ASA Class: III Final Preanesthetic Review: No Changes in Pt Med Stat, Meds/Allgs Chart Reviewed, Consent Obtained/Reviewed and Anes Risks/Benef Reviewed Patient Risk: Intermediate Procedure Risk: Intermediate Assessment/Block/Sedation in SS: Assess/Block/Sedation-SS Anesthetic Plan Anesthetic Plan: GA and Other (Patient seemed to understand explanation re: wake up post ECT. Will medicate with versed post ECT) Disposition: Standard PACU
[2021-12-05 00:03] LABS: Clozapine (Clozaril) 188 mcg/L; Norclozapine 60 mcg/L (25-400)
== END 2021-11-29 09:54 | disposition home or self-care (01) ==
PROVIDERS: Visit Provider Psychiatry & Neurology Psychiatry
PROC: (CPT 90870; principal; 2021-11-29 07:00)
DX: F31.64 Bipolar disorder, current episode mixed, severe, with psychotic features (principal); F30.4 Manic episode in full remission; I12.9 Hypertensive chronic kidney disease with stage 1 through stage 4 chronic kidney disease, or unspecified chronic kidney disease; N18.2 Chronic kidney disease, stage 2 (mild); E78.5 Hyperlipidemia, unspecified; G24.01 Drug induced subacute dyskinesia; Z79.899 Other long term (current) drug therapy; Z88.8 Allergy status to other drugs, medicaments and biological substances
CPT/HCPCS: 36415; 80159; 87635; 90870; J2250; J2405

== ENCOUNTER 2021-12-27 05:53 | Day surgery (SDC) | payer OTHER, SELFPAY ==
[2021-12-27] VITALS (9 sets, daily range): BP systolic 106–140; BP diastolic 69–84; PULSE 73–83; RESP 12–20; TEMP 36.8; O2SAT 93–98; BMI 27.6
[2021-12-27 06:49] LABS: COVID-19 Test Negative (Negative); IDNOW Serial# 16C4AD1C
--- NOTE | 2021-12-27 07:40 | P.CONAN_ITS ---
FORM[facility]LY [facility], [facility] Active Problems Active Problems: All Active Problems (Updated 10/03/21 @ 00:03 by Anthony Montana) CKD (chronic kidney disease) stage 2, GFR 60-89 ml/min (Acute) Physical exam (Acute) Bipolar affective disorder, mixed, severe, with psychotic behavior (Acute) Bipolar affective, manic, full remis (Acute) Hypertension (Acute) Hyperlipidemia (Acute) Dyskinesia, tardive (Acute) Past Medical History Medical History HTN (hypertension) Kidney problem Family History Family history of problems with anesthesia: No Surgical History History of Problems with Anesthesia: No (C/o being aware of trying to wake up post ECT- trying to wake up but couldn't fully , fell back asleep, was incontinent of urine at some point. This was not awareness under anesthesia. Was not aware of actual ECT. Reassured,explained normal process of waking up post ECT, each wakeup may be different) Social History Social History Household Members: Spouse Household Members Other:: Housing: House Do you presently have visiting nurse or other home services: No Unable to assess alcohol history related to: Unknown Patient Tobacco Use Status: Never used Tobacco Second Hand Smoke Exposure: No Advance Directives: No Advance Directives Information Provided: Yes service: No Sexual orientation: Straight/Heterosexual Meds Allergies Allergy/AdvReac Type Severity Reaction Status Date / Time haloperidol [From Haldol] Allergy Unknown Verified 07/22/20 03:38 Home Medications Medication Instructions Recorded Confirmed Last Taken Type acetaminophen 500 mg tablet 1,000 mg PO QID PRN Mild Pain 08/16/21 08/16/21 Unknown History (Tylenol Extra Strength) (Scale Score 1-4) multivitamin 1 tab PO DAILY 08/16/21 08/16/21 Unknown History vitamin B complex 1 tab PO DAILY 08/16/21 08/16/21 Unknown History Exam Exam Date and Time: December 27, 2021 0740 Height,Weight and Vital Signs: Height 6 ft 2 in Weight 97.522 kg Last Vital Signs Temp 98.2 F 12/27/21 06:56 Pulse 74 12/27/21 06:56 Resp 18 12/27/21 06:56 BP 130/82 12/27/21 06:56 Pulse Ox 98 12/27/21 06:56 O2 Del Method 12/27/21 06:56 Pertinent Lab Results Pertinent Lab Results: Laboratory Tests 12/27/21 06:19 COVID-19 (URI) Negative COVID-19 Clin Com See Note Airway Mallampati Class: II (Missing teeth) TM Dist: >3cm Neck ROM: Full Heart: rrr Lungs: cta Assessment and Plan Assessment Anesthesia Assessment: Anesthesia Plan Discussed and Chart Reviewed Final Anesthetic Review Family History of Problems with Anesthesia: No History of Problems with Anesthesia: No (C/o being aware of trying to wake up post ECT- trying to wake up but couldn't fully , fell back asleep, was incontinent of urine at some point. This was not awareness under anesthesia. Was not aware of actual ECT. Reassured,explained normal process of waking up post ECT, each wakeup may be different) NPO: Yes ASA Class: III Final Preanesthetic Review: No Changes in Pt Med Stat, Meds/Allgs Chart Reviewed and Consent Obtained/Reviewed Patient Risk: Intermediate Procedure Risk: Intermediate Anesthetic Plan Anesthetic Plan: GA Disposition: Standard PACU
--- NOTE | 2021-12-27 08:00 | MHC.SHP ---
Pre-Procedural Eval Section A Date of Service: 12/27/21 Changes since office visit: Yes Patient answered all questions; No Cold of Flu in the past 2 weeks, No New Medical Problems and No Changes in Medication The History & Physical has been completed within 30 days and I have reviewed it.: Yes Section B Chief Complaint: depression Allergies: Allergies Allergy/AdvReac Type Severity Reaction Status Date / Time haloperidol [From Haldol] Allergy Unknown Verified 07/22/20 03:38 Plan I have reviewed the history and physical and performed a pertinent physical examination on my patient. No changes have occurred unless specified.
--- NOTE | 2021-12-27 21:21 | HO.ECTPROC ---
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 No manic or significant depressive episodes. He he is down to 75 mg of clozapine he is hoping eventually to just be on Abilify like he was for many years. He does see a Dr. Najera. He is hoping that this can be his last maintenance ECT ECT Settings Device: THYMATRON DGx Electrode Placement: Rt temporal/ Lt frontal Program/Pulse Width: 0.50 Energy Percent: 100 Seizure Duration By EEG (in seconds): 42 Medications Administration General Anesthetic: Etomidate (16 ) Muscle Relaxant: Rocuronium (50) Ancillary Medications Anti-emetics: Zofran - Pre ECT Miscillaneous Medications: Midazolam (2 mg) Airway Management Airway Management: Bag Mask Ventilation Treatment Recommendations Electrode Placement: Rt temporal/ Lt frontal Program/Pulse Width: 0.50 Notes: Will try set up outpatient appointment to discuss options regarding ECT treatment coordinate care with Dr. Najera Pt Tolerated Procedure w/o Issue: Yes
== END 2021-12-27 10:25 | disposition home or self-care (01) ==
PROVIDERS: Visit Provider Psychiatry & Neurology Psychiatry
PROC: (CPT 90870; principal; 2021-12-27 07:00)
DX: F31.64 Bipolar disorder, current episode mixed, severe, with psychotic features (principal); I12.9 Hypertensive chronic kidney disease with stage 1 through stage 4 chronic kidney disease, or unspecified chronic kidney disease; N18.2 Chronic kidney disease, stage 2 (mild); G24.01 Drug induced subacute dyskinesia; E78.5 Hyperlipidemia, unspecified; Z79.899 Other long term (current) drug therapy; Z88.8 Allergy status to other drugs, medicaments and biological substances; Z20.822 Contact with and (suspected) exposure to COVID-19
CPT/HCPCS: 87635; 90870; J2250; J2405

== ENCOUNTER 2022-01-31 11:26 | Day surgery (SDC) | payer OTHER, MEDICAID, SELFPAY ==
[2022-01-31] VITALS (9 sets, daily range): BP systolic 123–145; BP diastolic 69–91; PULSE 76–98; RESP 16–20; TEMP 36.4–37.7; O2SAT 91–98; BMI 29.0
[2022-01-31 13:50] LABS: COVID-19 Test Negative (Negative)
--- NOTE | 2022-01-31 13:56 | HO.ANESPROP2 ---
[facility] Active Problems Active Problems: All Active Problems (Updated 10/03/21 @ 00:03 by Anthony Montana) CKD (chronic kidney disease) stage 2, GFR 60-89 ml/min (Acute) Physical exam (Acute) Bipolar affective disorder, mixed, severe, with psychotic behavior (Acute) Bipolar affective, manic, full remis (Acute) Hypertension (Acute) Hyperlipidemia (Acute) Dyskinesia, tardive (Acute) Past Medical History Medical History HTN (hypertension) Kidney problem Family History Family history of problems with anesthesia: No Surgical History History of Problems with Anesthesia: No (C/o being aware of trying to wake up post ECT- trying to wake up but couldn't fully , fell back asleep, was incontinent of urine at some point. This was not awareness under anesthesia. Was not aware of actual ECT. Reassured,explained normal process of waking up post ECT, each wakeup may be different) Social History Social History Household Members: Spouse Household Members Other:: Housing: House Do you presently have visiting nurse or other home services: No Unable to assess alcohol history related to: Unknown Patient Tobacco Use Status: Never used Tobacco Second Hand Smoke Exposure: No Advance Directives: No Advance Directives Information Provided: Yes service: No Sexual orientation: Straight/Heterosexual Meds Allergies Allergy/AdvReac Type Severity Reaction Status Date / Time haloperidol [From Haldol] Allergy Unknown Verified 07/22/20 03:38 Home Medications Medication Instructions Recorded Confirmed Last Taken Type acetaminophen 500 mg tablet 1,000 mg PO QID PRN Mild Pain 08/16/21 08/16/21 Unknown History (Tylenol Extra Strength) (Scale Score 1-4) multivitamin 1 tab PO DAILY 08/16/21 08/16/21 Unknown History vitamin B complex 1 tab PO DAILY 08/16/21 08/16/21 Unknown History Exam Exam Date and Time: January 31, 2022 1356 Height,Weight and Vital Signs: Height 6 ft 2 in Weight 102.512 kg Last Vital Signs Temp 97.6 F 01/31/22 13:42 Pulse 76 01/31/22 13:42 Resp 16 01/31/22 13:42 BP 140/79 H 01/31/22 13:42 Pulse Ox 98 10/14/22 13:42 O2 Del Method 01/31/22 13:42 Pertinent Lab Results Pertinent Lab Results: Laboratory Tests 01/31/22 13:21 COVID-19 (URI) Negative COVID-19 Clin Com See Note Airway Mallampati Class: III TM Dist: >3cm Neck ROM: Full Loose/Missing/Broken Teeth: No Heart: RRR Lungs: CTA Assessment and Plan Assessment Anesthesia Assessment: Anesthesia Plan Discussed Final Anesthetic Review Family History of Problems with Anesthesia: No History of Problems with Anesthesia: No (C/o being aware of trying to wake up post ECT- trying to wake up but couldn't fully , fell back asleep, was incontinent of urine at some point. This was not awareness under anesthesia. Was not aware of actual ECT. Reassured,explained normal process of waking up post ECT, each wakeup may be different) NPO: Yes ASA Class: II Final Preanesthetic Review: Meds/Allgs Chart Reviewed, Consent Obtained/Reviewed and Anes Risks/Benef Reviewed Patient Risk: Low Procedure Risk: Intermediate Anesthetic Plan Anesthetic Plan: GA Disposition: Standard PACU
--- NOTE | 2022-01-31 14:08 | MHC.SHP ---
Pre-Procedural Eval Section A Date of Service: 01/31/22 The patient is an INPATIENT: No Changes since office visit: No Cold of Flu in the past 2 weeks, No New Medical Problems, No Changes in Medication and No Patient answered all questions The History & Physical has been completed within 30 days and I have reviewed it.: Yes Section B Chief Complaint: Major depressive disorder, recurrent, Details of Present Illness: Bipolar disorder stable, highly functional Relevant Family History (Specify if Yes): No Relevant Social History: None Present Medications: see Short Stay Collaborative assessment Medical History: No relevant PMH Allergies: Allergies Allergy/AdvReac Type Severity Reaction Status Date / Time haloperidol [From Haldol] Allergy Unknown Verified 07/22/20 03:38 Review of Systems Sugical H&P ROS: Negative: Constitution, Cardiovascular, Respiratory, Neurological, Psychiatric, Hem-Onc, Allergic/Immunologic, Gastrointestinal, Genitourinary, Musculoskeletal, Integumentary, Endocrine and Eyes/Ears/Nose/Throat Exam Surgical H&P Exam: Normal: HEENT, Normal: Heart, Normal: Lungs, Normal: Extremities, Normal: Abdomen, Normal: Skin and Normal: Neurological Plan Diagnosis/Plan: Unchanged I have reviewed the history and physical and performed a pertinent physical examination on my patient. No changes have occurred unless specified.
--- NOTE | 2022-01-31 14:21 | HO.ECTPROC ---
ECT Procedure Note Diagnosis/Treatment Date of Service: 01/31/22 Diagnosis: Bipolar disorder Previous ECT Date: 01/03/22 Treatment: Maintenance Interval Clinical Notes: The patient reported no side effects with previous procedure, stable. ECT Settings Device: THYMATRON DGx Electrode Placement: Rt temporal/ Lt frontal Program/Pulse Width: 0.50 Energy Percent: 100 Seizure Duration By EEG (in seconds): 75 By Motor Observation (in seconds): 45 Medications Administration General Anesthetic: Etomidate (18) Muscle Relaxant: Rocuronium (15) Ancillary Medications Anti-emetics: Zofran - Pre ECT Miscillaneous Medications: Propofol Airway Management Airway Management: Bag Mask Ventilation Treatment Recommendations No Changes Recommended: No change Pt Tolerated Procedure w/o Issue: Yes
== END 2022-01-31 16:05 | disposition home or self-care (01) ==
PROVIDERS: Visit Provider Psychiatry & Neurology Psychiatry
PROC: (CPT 90870; principal; 2022-01-31 07:30)
DX: F31.64 Bipolar disorder, current episode mixed, severe, with psychotic features (principal); I12.9 Hypertensive chronic kidney disease with stage 1 through stage 4 chronic kidney disease, or unspecified chronic kidney disease; N18.2 Chronic kidney disease, stage 2 (mild); Z79.899 Other long term (current) drug therapy; Z88.8 Allergy status to other drugs, medicaments and biological substances; Z20.822 Contact with and (suspected) exposure to COVID-19
CPT/HCPCS: 87635; 90870; J2250; J2405

== ENCOUNTER 2022-03-17 06:00 | Day surgery (SDC) | payer OTHER, MEDICAID, SELFPAY ==
[2022-03-17] VITALS (9 sets, daily range): BP systolic 121–176; BP diastolic 75–95; PULSE 80–102; RESP 12–84; TEMP 36.7–37.2; O2SAT 92–97; BMI 29.9
--- NOTE | 2022-03-17 06:28 | ECG_ITS ---
Test Reason : pre op Blood Pressure : / mmHG Vent. Rate : 079 BPM Atrial Rate : 079 BPM P-R Int : 150 ms QRS Dur : 078 ms QT Int : 364 ms P-R-T Axes : 026 019 027 degrees QTc Int : 417 ms Normal sinus rhythm Normal ECG No previous ECGs available Referred By: Flavio Rajan Electronically Signed By:RENATA HIDALGO MD
[2022-03-17 06:37] LABS: COVID-19 Test Negative (Negative); IDNOW Serial# 16C4AD1C
--- NOTE | 2022-03-17 07:08 | MHC.SHP ---
Pre-Procedural Eval Section A Date of Service: 03/17/22 The patient is an INPATIENT: No Changes since office visit: No Cold of Flu in the past 2 weeks, No New Medical Problems, No Changes in Medication and No Patient answered all questions The History & Physical has been completed within 30 days and I have reviewed it.: Yes Section B Chief Complaint: depression Details of Present Illness: Stable at this moment Relevant Family History (Specify if Yes): Yes Relevant Social History: None Present Medications: None Medical History: No relevant PMH History of Previous Operations: No relevant previous surgery Allergies: Allergies Allergy/AdvReac Type Severity Reaction Status Date / Time haloperidol [From Haldol] Allergy Unknown Verified 07/22/20 03:38 Review of Systems Sugical H&P ROS: Negative: Constitution, Cardiovascular, Respiratory, Neurological, Psychiatric, Hem-Onc, Allergic/Immunologic, Gastrointestinal, Genitourinary, Musculoskeletal, Integumentary, Endocrine and Eyes/Ears/Nose/Throat Exam Surgical H&P Exam: Normal: HEENT, Normal: Heart, Normal: Lungs, Normal: Extremities, Normal: Abdomen, Normal: Skin and Normal: Neurological Plan Diagnosis/Plan: Unchanged I have reviewed the history and physical and performed a pertinent physical examination on my patient. No changes have occurred unless specified.
--- NOTE | 2022-03-17 07:22 | HO.ECTPROC ---
ECT Procedure Note Diagnosis/Treatment Date of Service: 03/17/22 Diagnosis: Bipolar disorder Previous ECT Date: 01/31/22 Treatment: Maintenance Interval Clinical Notes: The patient reported been asymptomatic. He does not want to have ECT as maintenance, we will discuss the case with the ECT team. ECT Settings Device: THYMATRON DGx Electrode Placement: Rt temporal/ Lt frontal Program/Pulse Width: 0.50 Energy Percent: 100 Seizure Duration By EEG (in seconds): 78 By Motor Observation (in seconds): 41 Medications Administration General Anesthetic: Etomidate (18) Muscle Relaxant: Rocuronium (15) Ancillary Medications Analgesics: Torodol - Pre ECT Anti-emetics: Zofran - Pre ECT Miscillaneous Medications: Propofol Airway Management Airway Management: Bag Mask Ventilation Treatment Recommendations Electrode Placement: Rt temporal/ Lt frontal Program/Pulse Width: 0.50 Energy Percent: 80 Pt Tolerated Procedure w/o Issue: Yes
--- NOTE | 2022-03-17 08:36 | HO.ANESPROP2 ---
HPI - Anesthesia Eval Consult details Narrative: Major depressive disorder [facility] Active Problems Active Problems: All Active Problems (Updated 03/06/22 @ 16:47 by Adis James MD) Pre-op evaluation (Acute) CKD (chronic kidney disease) stage 2, GFR 60-89 ml/min (Acute) Physical exam (Acute) Bipolar affective disorder, mixed, severe, with psychotic behavior (Acute) Bipolar affective, manic, full remis (Acute) Hypertension (Acute) Hyperlipidemia (Acute) Dyskinesia, tardive (Acute) Past Medical History Medical History HTN (hypertension) Kidney problem Family History Family history of problems with anesthesia: No Surgical History History of Problems with Anesthesia: No (C/o being aware of trying to wake up post ECT- trying to wake up but couldn't fully , fell back asleep, was incontinent of urine at some point. This was not awareness under anesthesia. Was not aware of actual ECT. Reassured,explained normal process of waking up post ECT, each wakeup may be different) Social History Social History Household Members: Spouse Household Members Other:: Housing: House Do you presently have visiting nurse or other home services: No Unable to assess alcohol history related to: Unknown Patient Tobacco Use Status: Never used Tobacco Second Hand Smoke Exposure: No Advance Directives: No Advance Directives Information Provided: Yes service: No Sexual orientation: Straight/Heterosexual Meds Allergies Allergy/AdvReac Type Severity Reaction Status Date / Time haloperidol [From Haldol] Allergy Unknown Verified 07/22/20 03:38 Home Medications Medication Instructions Recorded Confirmed Last Taken Type acetaminophen 500 mg tablet 1,000 mg PO QID PRN Mild Pain 08/16/21 08/16/21 Unknown History (Tylenol Extra Strength) (Scale Score 1-4) multivitamin 1 tab PO DAILY 08/16/21 08/16/21 Unknown History vitamin B complex 1 tab PO DAILY 08/16/21 08/16/21 Unknown History Exam Exam Date and Time: March 17, 2022 0836 Height,Weight and Vital Signs: Height 6 ft 3 in Weight 108.862 kg Last Vital Signs Temp 98.9 F 03/17/22 07:26 Pulse 91 03/17/22 08:26 Resp 17 03/17/22 08:26 BP 121/79 03/17/22 08:26 Pulse Ox 95 03/17/22 08:26 O2 Del Method 03/17/22 08:26 O2 Flow Rate 3 03/17/22 07:56 Pertinent Lab Results Pertinent Lab Results: Laboratory Tests 03/17/22 06:13 COVID-19 (URI) Negative COVID-19 Clin Com See Note Airway Mallampati Class: III TM Dist: >3cm Neck ROM: Full Loose/Missing/Broken Teeth: Yes (teeth missing lobally) Heart: [id number] Lungs: cta b/l Assessment and Plan Assessment Anesthesia Assessment: Anesthesia Plan Discussed and Chart Reviewed Final Anesthetic Review Family History of Problems with Anesthesia: No History of Problems with Anesthesia: No (C/o being aware of trying to wake up post ECT- trying to wake up but couldn't fully , fell back asleep, was incontinent of urine at some point. This was not awareness under anesthesia. Was not aware of actual ECT. Reassured,explained normal process of waking up post ECT, each wakeup may be different) NPO: Yes ASA Class: III Final Preanesthetic Review: No Changes in Pt Med Stat, Meds/Allgs Chart Reviewed, Consent Obtained/Reviewed and Anes Risks/Benef Reviewed Patient Risk: Intermediate Procedure Risk: Intermediate Assessment/Block/Sedation in SS: Assess/Block/Sedation-SS Anesthetic Plan Anesthetic Plan: GA and Agree w/ Assess. and Plan Disposition: Standard PACU
== END 2022-03-17 09:22 | disposition home or self-care (01) ==
PROVIDERS: Visit Provider Psychiatry & Neurology Psychiatry
PROC: (CPT 90870; principal; 2022-03-17 08:00)
DX: F31.30 Bipolar disorder, current episode depressed, mild or moderate severity, unspecified (principal); I12.9 Hypertensive chronic kidney disease with stage 1 through stage 4 chronic kidney disease, or unspecified chronic kidney disease; N18.2 Chronic kidney disease, stage 2 (mild); Z79.899 Other long term (current) drug therapy; Z88.8 Allergy status to other drugs, medicaments and biological substances; Z20.822 Contact with and (suspected) exposure to COVID-19
CPT/HCPCS: 87635; 90870; 93005; J2250; J2405

== ENCOUNTER 2025-01-12 15:29 | Emergency (ER) | payer OTHER, MEDICAID, SELFPAY ==
[2025-01-12 15:33] VITALS: BP 140/76; PULSE 90; RESP 18; TEMP 36.3; O2SAT 97; BMI 29.9
--- NOTE | 2025-01-12 15:33 | ED.PSYCH ---
HPI - Psych General Chief Complaint: Psychiatric Symptoms Stated Complaint: si Time Seen by Provider: 01/12/25 16:22 Source: patient Mode of arrival: ambulatory Limitations: no limitations History of Present Illness ED Provider: Dr. Winter HPI Narrative: 49-year-old male history of bipolar disease presents to ER today for rapid thoughts patient stated that she is having some shortness of breath he can not speak. Patient does not want me to assess him at this time. Patient is requesting to shake my hand. Patient stated that he has a mental health counselor as well. He knows everything that is going on. Patient stated that he has not been able to sleep well. He does have history of bipolar in the past. Patient stated that he does take benzodiazepine. Does not take any other medicine. Patient has failed that he is psychotic. Patient stated that all the psychotic injuries bouncing off him. Patient stated that he knows how to behaving and calm him self down. Patient stated that he is worried about my safety as he is flailing his arm and twitching. Has no control over this. Related Data Home Medications ?Medication ?Instructions ?Recorded ?Confirmed aripiprazole 400 mg intramuscular 400 mg IM QMONTH 01/12/25 01/13/25 suspension,extended release (Abilify Maintena) bisoprolol 10 1 tab PO DAILY 01/12/25 01/12/25 mg-hydrochlorothiazide 6.25 mg tablet lorazepam 1 mg tablet 1 mg PO BID PRN anxiety 01/12/25 01/12/25 losartan 50 mg tablet 50 mg PO DAILY 01/12/25 01/12/25 olanzapine 5 mg tablet 5 mg PO BID PRN anxiety 01/12/25 01/12/25 Allergies Allergy/AdvReac Type Severity Reaction Status Date / Time haloperidol (From Haldol) Allergy Unknown Verified 01/12/25 15:37 Review of Systems Review of Systems: Unable to obtain due to manic behavior PMFSH Past Medical History PMFSH Narrative: Medical history as mentioned in HPI Medical History HTN (hypertension) Kidney problem Social History Social History Household Members: Spouse Household Members Other:: Housing: House Do you presently have visiting nurse or other home services: No Comment: easily aroused Patient Tobacco Use Status: Never used Tobacco Second Hand Smoke Exposure: No Advance Directives: No Advance Directives Information Provided: No Do you have a plan to hurt others: No Plan service: No Sexual orientation: Straight/Heterosexual Physical Exam Exam: Exam: His lab is limited due to patient's cooperation. General: Does not appear to be in acute distress, appears to be having manic behavior, patient is talking and speaking in full sentences, does not appear to be tachypneic Vital Signs: Vital Signs: Last Vital Signs Temp 98.1 F 01/13/25 13:08 Pulse 83 01/13/25 13:08 Resp 18 01/13/25 13:08 BP 144/92 H 01/13/25 13:08 Pulse Ox 99 01/13/25 13:08 O2 Del Method Room Air 01/13/25 13:08 BMI result Body Mass Index 29.9 Course Course Course Narrative: This is an RME: Additional HPI, ROS, PE not included below will be deferred to primary provider. RME assessment and note performed by: Mary Hastings PA-C This is a [id number]-male, with a hx of HTN, HLD, CKD, BP disorder, who presents to the ER with a complaint of needing a tune up . Reports that he needs mental health issues. Reporting he has no capacity for emotional, mental things. He has thoughts of harming himself and others. He reports that he hopes not . Reporting he has not gotten any sleep, previously sleeping 13-14 hours per day. Plan: Labs, UA, crisis eval Medications Administered Discontinued Medications Generic Name Dose Route Start Last Admin Trade Name Barb PRN Reason Stop Dose Admin Bisoprolol Fumarate 10 mg 01/13/25 09:00 01/13/25 08:30 Bisoprolol Fumarate 5 Mg Tablet PO 10 mg DAILY CONRAD Administration Hydrochlorothiazide 6.25 mg 01/13/25 09:00 01/13/25 08:29 Hydrochlorothiazide 12.5 Mg Tablet PO 6.25 mg DAILY CONRAD Administration Lorazepam 1 mg 01/13/25 02:26 01/13/25 08:29 Lorazepam 1 Mg Tablet PO 1 mg BID PRN Administration Anxiety Lorazepam 2 mg 01/13/25 12:12 01/13/25 12:18 Lorazepam 1 Mg Tablet PO 01/13/25 12:13 2 mg ONCE ONE Administration Losartan Potassium 50 mg 01/13/25 09:00 01/13/25 08:30 Losartan Potassium 50 Mg Tablet PO 50 mg DAILY CONRAD Administration Protocol Midazolam HCl 4 mg 01/12/25 17:33 01/12/25 17:53 Midazolam Hcl 2 Mg/2 Ml Vial IM 01/12/25 17:34 4 mg ONCE ONE Administration Midazolam HCl 5 mg 01/12/25 19:14 01/12/25 19:31 Midazolam Hcl 5 Mg/Ml Vial IM 01/12/25 19:15 5 mg ONCE ONE Administration Olanzapine 5 mg 01/12/25 17:33 01/12/25 17:53 Olanzapine 10 Mg Vial IM 01/12/25 17:34 5 mg STAT STA Administration Olanzapine 5 mg 01/12/25 19:14 01/12/25 19:31 Olanzapine 10 Mg Vial IM 01/12/25 19:15 5 mg ONCE ONE Administration Olanzapine 5 mg 01/13/25 02:26 01/13/25 09:00 Olanzapine 5 Mg Tablet PO 5 mg BID PRN Administration Anxiety Medical Decision Making Medical Decision Making MDM Narrative: 49-year-old male history of bipolar disease presented hospital today for manic behavior. On my exam patient is clearly psychotic and manic. The patient has multiple tangential thoughts. Thought process is not linear in nature. He does have pressured speech. I do not think he is in respiratory distress at this time. Patient is breathing speaking full sentences does not appear to be tachypneic. We will plan to give patient has some p.o. Zyprexa. He stated the psychotic thoughts her encouraged him suicide ideation and him. Crisis team will be consulted. Crisis team recommends a voluntary admission for inpatient psychiatric care. The patient is agitated increasingly manic. Intruding on other patient's room. At this time we will plan to give patient some IM Zyprexa and Versed. Reassessment the patient is protecting his airway at this time. Resting in bed. Patient will be signed out to oncoming provider pending transfer for definitive psychiatric care. Time: 11:19 Date: 01/13/25 Provider: Felice Pritchett MD Patient in physician observation for psychiatric evaluation.? No acute events reported overnight. No current complaints. VS stable.? Patient was evaluated by the care team who felt that the patient had impaired insight, judgment, concentration, memory issues and was area vulnerable to harm/unintentional harm to others without treatment. The patient has been accepted at [facility] for inpatient psychiatric care. The patient will be transferred by ambulance on a Section 12. Differential Diagnosis Differential Diagnoses: The differential diagnosis associated with the presentation includes Manic behavior, bipolar disease, agitation, depression Lab Data MDM Lab Attestation statement: I reviewed the patient's lab results. 01/12/25 16:33 01/12/25 16:33 Labs: Lab Results 01/12/25 01/12/25 Range/Units 16:33 16:38 WBC 8.1 (4.8-10.8) X10*3/uL RBC 4.59 L (4.60-5.80) X10*6/uL Hgb 14.0 (14.0-18.0) g/dl Hct 40.3 L (42.0-52.0) % MCV 87.8 (80.0-98.0) fL MCH 30.5 (27.0-33.0) pg MCHC 34.7 (31.0-36.0) g/dl RDW 12.9 (11.0-16.0) % Plt Count 242 (160-400) X10*3/uL MPV 9.4 (9.4-12.4) fL Immature Gran % (Auto) 0.2 (0.0-0.4) % Neut % (Auto) 69.0 (45-73) % Lymph % (Auto) 19.5 L (20-40) % [place] % (Auto) 8.6 (2-11) % Eos % (Auto) 2.3 (0-4) % Baso % (Auto) 0.4 (0-2) % Lymph # (Auto) 1.6 (1.2-4.9) X10*3/uL [place] # (Auto) 0.7 (0.1-1.2) X10*3/uL Eos # (Auto) 0.2 (0.0-0.4) X10*3/uL Baso # (Auto) 0.0 (0.0-0.2) X10*3/uL Abs Immat Gran (auto) 0.02 (0.00-0.03) X10*3/uL Absolute Neuts (auto) 5.6 (2.0-8.3) x10*3/uL Absolute Nucleated RBC 0.000 (0.0-0.012) X10*3/uL Nucleated RBC % (auto) 0.0 (0.0-0.2) /100WBC Sodium 140 (135-145) mmol/L Potassium 4.0 (3.3-5.1) mmol/L Chloride 106 (96-108) mmol/L Carbon Dioxide 25 (22-29) mmol/L Anion Gap 13 (12-20) BUN 18 H (9-16) mg/dL Creatinine 1.52 H (0.5-1.4) mg/dL Estim Creat Clear Calc 79.9 Estimated GFR 49 Random Glucose 97 (60-115) mg/dL Calcium 9.5 (8.4-10.2) mg/dL Total Bilirubin 0.7 (0.0-1.0) mg/dL AST 43 H (5-37) U/L ALT 55 H (0-40) U/L Alkaline Phosphatase 50 (39-117) U/L Total Protein 8.2 H (6.5-8.0) g/dL Albumin 4.8 (3.5-5.0) g/dL Urine Color Yellow Urine Appearance Clear Urine pH 6.0 (5.0-9.0) Ur Specific [place] 1.010 (1.005-1.025) Urine Protein 30 (1+) H (Neg-Trace) mg/dL Urine Glucose (UA) Negative (Negative) mg/dL Urine Ketones Negative (Negative) mg/dL Urine Blood Negative (Negative) Urine Nitrite Negative (Negative) Ur Leukocyte Esterase Negative (Negative) Urine RBC 0-2 (0-2) /HPF Urine WBC 0-5 (0-5) /HPF Ur Squamous Epith Cells 0-2 (0-2) /HPF Urine Bacteria None Seen (None Seen) Hyaline Casts 0-2 (0-2) /LPF Salicylates < 5.0 L (15-30) mg/dL Urine Opiates Screen Not Detected (Not Detect) Ur Buprenorphine Scrn Not Detected (Not Detect) ng/mL Ur Oxycodone Screen Not Detected (Not Detect) ng/mL Urine Methadone Screen Not Detected (Not Detect) ng/mL Urine Fentanyl Screen Not Detected (Not Detect) Acetaminophen < 3 (<30) mcg/mL Ur Barbiturates Screen Not Detected (Not Detect) Ur Phencyclidine Scrn Not Detected (Not Detect) Ur Amphetamines Screen Not Detected (Not Detect) U Benzodiazepines Scrn Not Detected (Not Detect) Urine Cocaine Screen Not Detected (Not Detect) U Marijuana (THC) Screen Not Detected (Not Detect) Ethyl Alcohol < 10 mg/dL COVID-19 (URI) Negative (Negative) COVID-19 Clin Com See Note Discharge Plan Discharge Clinical Impression: Manic behavior Patient Disposition: Xfer Psychiatric Hosp Transfer Details: [facility] at [address] [place] [address], [address] physician Dr[address] Luis Felipe Maldonado Prescriptions: No Action losartan 50 mg tablet 50 mg PO DAILY bisoprolol-hydrochlorothiazide 10-6.25 mg tablet 1 tab PO DAILY olanzapine 5 mg tablet 5 mg PO BID PRN (Reason: anxiety) lorazepam 1 mg tablet 1 mg PO BID PRN (Reason: anxiety) Abilify Maintena 400 mg suspension,extended rel recon 400 mg IM QMONTH Interventions: [place]-Suicide Risk Severity Scale Last Done: 01/12/25 16:48 Acute Care Transfer Worksheet (ED) Last Done: 01/13/25 13:08 Discharge Date/Time: 01/13/25 12:30 Print Language: Kazakh
--- NOTE | 2025-01-12 16:45 | PC.NURSE ---
Pt reporting numerous physical ailments such as inability to swallow. Pt has no obvious difficulty swallowing at this time
[2025-01-12 16:47] LABS: MANUAL DIFF FLAG NO
[2025-01-12 16:48] VITALS: RESP 14
[2025-01-12 16:57] LABS: Hematocrit 40.3 % (42.0-52.0); Hemoglobin 14.0 g/dl (14.0-18.0); Imm Gran Abs Auto 0.02 X10*3/uL (0.00-0.03); Imm Gran Pct Auto 0.2 % (0.0-0.4); Lymphocytes Absolute Auto 1.6 X10*3/uL (1.2-4.9); Mean Corpuscular HGB Conc 34.7 g/dl (31.0-36.0); Mean Corpuscular Hemoglobin 30.5 pg (27.0-33.0); Mean Corpuscular Volume 87.8 fL (80.0-98.0); NRBC Abs Auto 0.000 X10*3/uL (0.0-0.012); NRBC Pct Auto 0.0 /100WBC (0.0-0.2); Platelet Count 242 X10*3/uL (160-400); Red Blood Count 4.59 X10*6/uL (4.60-5.80); White Blood Count 8.1 X10*3/uL (4.8-10.8)
[2025-01-12 16:58] LABS: Appearance Urine Clear; Glucose Urine UA Negative (Negative); PH 6.0 (5.0-9.0); Specific Gravity - Urine 1.010 (1.005-1.025); UMIC TRIGGER UA YES
[2025-01-12 16:59] LABS: Cannabinoid Screen Urine Not Detected (Not Detect)
[2025-01-12 17:01] LABS: COVID-19 Test Negative (Negative); IDNOW Serial# 55D5AD1C
[2025-01-12 17:05] LABS: Acetaminophen LAB < 3 mcg/mL (<30); Alanine Aminotransferase 55 U/L (0-40); Albumin Level 4.8 g/dL (3.5-5.0); Alkaline Phosphatase 50 U/L (39-117); Anion Gap 13 (12-20); Aspartate Amino Transferase 43 U/L (5-37); Blood Urea Nitrogen 18 mg/dL (9-16); Calcium 9.5 mg/dL (8.4-10.2); Carbon Dioxide 25 mmol/L (22-29); Chloride 106 mmol/L (96-108); Creatinine Clr Calc Pharmacy 79.9; Estimated Glomerular Filt Rate 49; Potassium 4.0 mmol/L (3.3-5.1); Salicylate < 5.0 mg/dL (15-30); Sodium 140 mmol/L (135-145); Total Protein 8.2 g/dL (6.5-8.0)
--- NOTE | 2025-01-12 17:05 | PC.NURSE ---
Pt extremely hyperverbal, unable redirect despite multiple attempts. Pt reporting numerous complaints is hyperfixated on numerous physical ailments
[2025-01-12] MEDS: OLANZapine 10 MG VIAL 5 MG IM ×2 (17:53→19:31)
--- NOTE | 2025-01-12 18:12 | MHC.CARE ---
CARE Team spoke with Pt's (Monica Frenandez; [phone]) who reports that Pt had an appointment with his outpatient psychiatrist who suggested that Pt was taken to an ED for a crisis evaluation. She voiced no concerns other than that Pt has recently not made any sense when speaking. She denied observing other disorganized behaviors, aggression, agitation or inability to care for self. 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 It is reported that Pt has not received ECT or been hospitalized since he was discharged from in 2021. She expresses that it seems that his symptoms of decompensation have been picked up on early this time around, but he tends to crash really fast. She reports that Pt receives an injection of Abilify, however Pt has recently expressed that he felt it was not working anymore. Pt's is his HCP, however she was uncertain of whether it was court affirmed or not. Monica's father (Maik; [phone]) will provide the CARE Team paperwork that he has regarding the HCP.
--- NOTE | 2025-01-12 18:44 | PC.NURSE ---
Pt remains hyperverbal and pacing around BH pod despite medicating attempt. pt has minimal boundaries and does not respond well to redirection. MD aware, no new orders at this time
--- NOTE | 2025-01-12 19:44 | PC.NURSE ---
Patient continues to present with hyperverbal, hyperactive, manic behavior, difficult to redirect patient. RD provider informed. Patient medicated with Zyprexa 5 mg IM and Versed 5 mg IM.
--- NOTE | 2025-01-12 19:46 | PC.NURSE ---
Patient is calm, VSS. Patient is currently resting in bed, no s/s of distress noted.
--- OUTSIDE RECORDS SUMMARY | 2025-01-12 19:58 | XMS_ITS | Clinical Summary ---
Author Organization [facility] Facility Address [address] [address] Care Team Providers Care Kiln Tester Name Role Phone Rich Carbajal PA-C Primary Care Provider Allergies Active Allergy Reactions Criticality Noted Date Comments Chlorpromazine Other (see comments) 11/26/2020 Haloperidol Other (see comments) 11/26/2020 Thioridazine Other (see comments) 11/26/2020 Medications Abilify Maintena 400 MG Suspension Reconstituted ER 2 Active bisoprolol-hydroCH LOROthiazide (ZIAC) 10-6.25 MG per tablet Take 1 tablet by mouth 1 (one) time each day 2 Active cloZAPine (CLOZARIL) 25 MG tablet Take 75 mg by mouth at bed time 2 Active cetirizine (ZyrTEC) 10 MG tablet Take 10 mg by mouth 1 (one) time each day Active losartan (Cozaar) 50 MG tablet Take 1 tablet (50 mg total) by mouth 1 (one) time each day 90 tablet 3 3 Active alclomethasone (ACLOVATE) 0.05 % cream APPLY TO FACE TWICE DAILY NEEDED FOR FLARES DECREASE USE SYMPTOMS IMPROVE 2 Active Active Problems Problem Noted Date Diagnosed Date Polydipsia 07/03/2022 Snoring 04/17/2022 Hyperlipidemia 12/30/2021 Obese class I 12/30/2021 Hypertensive disorder 08/12/2021 Microalbuminuria 02/24/2021 Bipolar disorder 12/04/2020 Dry skin dermatitis 11/26/2020 Impaired fasting glycemia 11/26/2020 Resolved Problems Problem Noted Date Diagnosed Date Resolved Date Screening for cardiovascular condition 08/12/2021 12/30/2021 Chronic kidney disease stage 3A 02/24/2021 12/30/2021 Plantar wart 11/26/2020 12/30/2021 Immunizations Immunization Administration Dates Next Due Hepatitis B 01/18/2007,09/21/2006,08/17/2006 Influenza, MDCK, PF, Quadrivalent 12/12/2016 Influenza, Quadrivalent, Preservative Free 01/18 Influenza, Unspecified 03/01/2021,12/12/2016 MMR 11/04/2019 Meningococcal Conjugate 07/07/2006 Meningococcal, Unspecified 07/07/2006 Moderna SARS-COV-2 04/10/2021,05/17/2020, 020 Td 07/07/2006 Td, Unspecified 07/07/2006 Tdap 05/01/2021,01/04/2016 Social History Tobacco Use Types Packs/Day Years Used Date Smoking Tobacco: Never Smokeless Tobacco: Never Tobacco Cessation:Counseling Given: No Alcohol Use Standard Drinks/Week Comments Yes 0 (1 standard drink = 0.6 oz pur e alcohol) Sex and Gender Information Value Date Recorded Sex Assigned at Not on file Legal Sex Male 11:29 AM EDT Gender Identity Not on file Sexual Orientation Not on file Last Filed Vital Signs Vital Sign Reading Time Taken Comments Blood Pressure 118/78 07/03/2022 2:29 PM EDT Pulse 77 07/03/2022 2:29 PM EDT Temperature - - Respiratory Rate - - Oxygen Saturation 97% 07/03/2022 2:29 PM EDT Inhaled Oxygen Concentration - - Weight 121 kg (266 lb 3.2 oz) 07/03/2022 2:29 PM EDT Height - - Body Mass Index - - Plan of Treatment Health Maintenance Due Date Last Done Comments Hepatitis B Vaccine (1 of 3 - 19+ 3-dose series) 1996 01/18/2007, 09/21/2006, 08/17/2006 Pneumococcal Vaccine: Peds ( 0 to 5 Years) and At-Risk Patients (6 to 49 Years) (1 of 2 - PCV) 1996 Influenza Vaccine (#1) 2024 , 01/19/2020, 12/12/2016, Additional history exists Insurance [facility] Care Teams Kiln Tester Relationship Specialty Start Date End Date Rich Carbajal PA-C [address] [place] [address] PCP - General Physician Hiv Cts Specialist 07/03/22
--- OUTSIDE RECORDS SUMMARY | 2025-01-12 19:58 | XMS_ITS | Data Portability ---
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 Patient consented to video & audio visit Patient was located at at work Provider was located in the office. No other persons participated in the telemedicine visit except for the patient unless otherwise indicated here. Total time of visit was 26 minutes. [email or web address] Not available 01/12/2020 13:59:13 03/26/2020 03/26/2020 This service was provided using telemedicine. Patient consented to video & audio visit Patient was located at at home Provider was located in the office. No other persons participated in the telemedicine visit except for the patient unless otherwise indicated here. Total time of visit was 26 minutes. pmadden Not available 03/26/2020 12:32:08 Plan of Treatment Reminders Order Date Submit Date Provider Last Modified By Organization Details Last Modified Time Details Appointments None recorded. Lab CMP, serum or plasma 2020 021 [facility], [address], [place], [address], 19:09:49 CBC w/ auto diff 2020 021 [facility], [address], [place], [address], 1 18:03:43 HbA1c (hemoglobin A1c), blood 2020 021 [facility], [address], [address], [place], [address], 1 18:19:56 microalbumi n, urine 2020 021 [facility], [address], [address], [place], [address], 1 19:18:28 lipid panel, serum 2020 021 [facility], [address], [address], [place], [address], 1 19:09:50 hepatitis C virus Ab, serum 2020 021 [facility], [address], [address], [place], [address], 1 14:56:17 BMP, serum or plasma 2020 021 [facility], [address], [address], [place], [address], 1 16:41:13 SARS CoV 2 IgG Ab, QL IA, serum or plasma 2019 020 [facility], [address], [address], [place], [address], 0 21:02:24 BMP, serum or plasma 2019 020 [facility], [address], [address], [place], [address], 0 18:52:15 HbA1c (hemoglobin A1c), blood 2019 020 [facility], [address], [address], [place], [address], 0 19:39:19 BMP, serum or plasma 2019 020 [facility], [address] [facility], [address], [place], [address], 0 18:31:22 lipid panel, serum 2019 020 [facility], [address] [facility], [address], [place], [address], 0 18:31:23 Referral sleep medicine referral 2020 021 [facility], [address] 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, [facility] [address], [place], [address], 1 09:37:27 Procedures None recorded. Surgeries None recorded. Imaging None recorded. Medication Orders None recorded. Patient Targets Encounter Date Encounter Id Patient Goals Patient Target Last Modified By Organization Details Last Modified Time 11/26/2020 [id number] watermaster goal of Blood Pressure 140 / 90 Not available Not available Not available senior living goal of Exercise level Not available Not available Not available senior living goal of Tobacco Smoking Status Not available Not available Not available senior living goal of Excess Body Weight Loss % 5 Not available Not available Not available 11/26/2020 [id number] Pt advised and agrees to eat a low salt low fat diet; to do moderate exercise (such as walking) 150 minutes per week; to limit alcohol intake (goal of 2 drinks per day or less for men or 1 for woman). and to monitor dietary sodium. Will monitor home blood pressures and bring readings to appointments. Patient preferences and goals incorporated in plan and updated/modified as needed to reflect progress toward goal. Pt advised and agrees to work on self-monitoring behaviors; begin an appropriate diet for weight loss (such as a low carbohydrate diet), to do moderate exercise (such as walking) for approximately 150 minutes per week; and to identify desirable and timely rewards that will reinforce achievement of specific weight loss goals. pmadden Not available 11/26/2020 11:02:09 Patient Instructions Encounter Date Encounter Id Patient Instructions Last Modified By Organization Details Last Modified Time 01/12/2020 [id number] prediabetes: car e instructions pmadden Not available 01/12/2020 14:10:47 A healthy lifestyle: care instructions pmadden Not available 01/12/2020 14:10:48 high blood pressure: care instructions pmadden Not available 01/12/2020 14:10:47 dash diet: care instructions pmadden Not available 01/12/2020 14:10:48 Medications (OTC , herbal therapies, supplements) reviewed and reconciled with patient and or caregiver, including potential side effects, drug interactions, instructions, and the consequences of not taking medication. Reviewed potential barriers to medication adherence, such as side effects from medication or cost of medication. pmadden Not available 01/12/2020 13:42:34 03/26/2020 [id number] COVID-19 FAQ pmadden Not available 12:32:09 Medications (OTC , herbal therapies, supplements) reviewed and reconciled with patient and or caregiver, including potential side effects, drug interactions, instructions, and the consequences of not taking medication. Reviewed potential barriers to medication adherence, such as side effects from medication or cost of medication. pmadden Not available 03/26/2020 12:34:07 08/24/2020 [id number] At [facility] follow up visit, all current and discharge medications (OTC, herbal therapies, supplements) reviewed and reconciled with patient and or caregiver, including potential side effects, drug interactions, instructions, and the consequences of not taking medication. Reviewed potential barriers to medication adherence, such as side effects from medication or cost of medication. abolcun Not available 08/24/2020 10:08:23 11/26/2020 [id number] Well Visit, Ages 18 to 65: Care Instructions pmadden Not available 11/26/2020 11:04:32 testicular self-exam: care instructions pmadden Not available 11/26/2020 11:04:32 A healthy lifestyle: care instructions pmadden Not available 11/26/2020 11:04:32 When You Want to Lose Weight: Care Instructions pmadden Not available 11/26/2020 11:04:32 Nutrition Referral and Weight Management Follow-up Information pmadden Not available 11/26/2020 11:04:33 Medications (OTC , herbal therapies, supplements) reviewed and reconciled with patient and or caregiver, including potential side effects, drug interactions, instructions, and the consequences of not taking medication. Reviewed potential barriers to medication adherence, such as side effects from medication or cost of medication. 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 Refer ral for Body mass index 25-29 - overweight Referring Physician: Humberto Howard, Internal Medicine, Encounter Date: 11/26/2020 Sleep Medicine Referral for Snoring Referring Physician: Humberto Howard, Internal Medicine, Encounter Date: 11/26/2020 Results Created Date Observation Date Name Description Value Unit Range Abnormal Flag Note LastModifiedBy Organization Detail LastModifiedTime 03/26/2003/26/2020 BMP, serum or plasm a glucose 100 mg/dL (70-99 ) high Not Available [facility] (Centralized Electronic Ordering - All Locations) Patient Can Go To The Location Of Their Choice, [id number] 03/26/2020 18:52:15 03/26/2003/26/2020 BMP, serum or plasm a BUN 19 mg/dL (6-20) Not Available [facility] (Centralized Electronic Ordering - All Locations) Patient Can Go To The Location Of Their Choice, [id number] 03/26/2020 18:52:15 03/26/2003/26/2020 BMP, serum or plasm a creatinine 1.4 mg/dL (0.7-1 .2) high Not Available [facility] (Centralized Electronic Ordering - All Locations) Patient Can Go To The Location Of Their Choice, [id number] 03/26/2020 18:52:15 03/26/2003/26/2020 BMP, serum or plasm a sodium 139 mmol/ L (133-1 45) Not Available [facility] (Centralized Electronic Ordering - All Locations) Patient Can Go To The Location Of Their Choice, [id number] 03/26/2020 18:52:15 03/26/2003/26/2020 BMP, serum or plasm a potassium 4.0 mmol/ L (3.6-5 .2) Not Available [facility] (Centralized Electronic Ordering - All Locations) Patient Can Go To The Location Of Their Choice, [id number] 03/26/2020 18:52:15 03/26/2003/26/2020 BMP, serum or plasm a chloride 101 mmol/ L (98-10 7) Not Available [facility] (Centralized Electronic Ordering - All Locations) Patient Can Go To The Location Of Their Choice, [id number] 03/26/2020 18:52:15 03/26/2003/26/2020 BMP, serum or plasm a bicarbonate 25 mmol/ L (22-29 ) Not Available [facility] (Centralized Electronic Ordering - All Locations) Patient Can Go To The Location Of Their Choice, [id number] 03/26/2020 18:52:15 03/26/2003/26/2020 BMP, serum or plasm a anion gap 13 (4-17) Not Available [facility] (Centralized Electronic Ordering - All Locations) Patient Can Go To The Location Of Their Choice, [id number] 03/26/2020 18:52:15 03/26/2003/26/2020 BMP, serum or plasm a calcium 10.1 mg/dL (8.6-1 0.5) Not Available [facility] (Centralized Electronic Ordering - All Locations) Patient Can Go To The Location Of Their Choice, [id number] 03/26/2020 18:52:15 03/26/2003/26/2020 BMP, serum or plasm a est GFR non 60 mL/mi n/1.7 3_M2 Creat inine based estim ated glome rular filtr ation rate (eGFR ) is calcu lated using the Chron ic Kidne y Disea se Epide miolo gy Colla borat ion (CKD- EPI). The CKD-E PI creat inine equat ion has not been valid ated in child viv (<18 years ), pregn ant women or in some racia l or ethni c subgr oups other than Cauca sians and Afric an Ameri cans. Not Available [facility] (Centralized Electronic Ordering - All Locations) Patient Can Go To The Location Of Their Choice, [id number] 03/26/2020 18:52:15 03/26/20 20 03/26/2020 BMP, serum or plasm a est GFR 70 mL/mi n/1.7 3_M2 Creat inine based estim ated glome rular filtr ation rate (eGFR ) is calcu lated using the Chron ic Kidne y Disea se Epide miolo gy Colla borat ion (CKD- EPI). The CKD-E PI creat inine equat ion has not been valid ated in child viv (<18 years ), pregn ant women or in some racia l or ethni c subgr oups other than Cauca sians and Afric an Ameri cans. Not Available [facility] (Centralized Electronic Ordering - All Locations) Patient Can Go To The Location Of Their Choice, [id number] 03/26/2020 18:52:15 03/26/2003/26/2020 SARS CoV 2 IgG Ab, QL IA, serum or plasm a covid-19 IgG Ab (notde ) normal Not detec james Negat ct resul ts do not rule out SARS- CoV-2 infec tion, parti cular ly in those who have been in conta ct with the virus . Follo w-up testi ng with a molec ular diagn ostic shoul d be consi dered to rule out infec tion in these indiv idual s. Resul t repor james to [facility]. Resul ts from antib ash testi ng shoul d not be used as the sole basis to diagn ose or exclu de SARS- CoV-2 infec tion or to infor m infec tion statu s. This test has been autho rized by the FDA under an Emerg ency Use Autho rizat ion (EUA) for use by autho rized labor atori es. This test was perfo rmed on the Abbot t Archi tect immun oassa y syste m. Not Available [facility] (Centralized Electronic Ordering - All Locations) Patient Can Go To The Location Of Their Choice, 03/26/2020 21:02:24 03/31/20 20 03/31/2020 BMP, serum or plasm a glucose 100 mg/dL (70-99 ) high Not Available [facility] (Centralized Electronic Ordering - All Locations) Patient Can Go To The Location Of Their Choice, 03/31/2020 18:31:22 03/31/20 20 03/31/2020 BMP, serum or plasm a BUN 18 mg/dL (6-20) Not Available [facility] (Centralized Electronic Ordering - All Locations) Patient Can Go To The Location Of Their Choice, 03/31/2020 18:31:22 03/31/20 20 03/31/2020 BMP, serum or plasm a creatinine 1.5 mg/dL (0.7-1 .2) high Not Available [facility] (Centralized Electronic Ordering - All Locations) Patient Can Go To The Location Of Their Choice, 03/31/2020 18:31:22 03/31/2003/31/2020 BMP, serum or plasm a sodium 142 mmol/ L (133-1 45) Not Available [facility] (Centralized Electronic Ordering - All Locations) Patient Can Go To The Location Of Their Choice, 03/31/2020 18:31:22 03/31/2003/31/2020 BMP, serum or plasm a potassium 4.0 mmol/ L (3.6-5 .2) Not Available [facility] (Centralized Electronic Ordering - All Locations) Patient Can Go To The Location Of Their Choice, 03/31/2020 18:31:22 03/31/2003/31/2020 BMP, serum or plasm a chloride 104 mmol/ L (98-10 7) Not Available [facility] (Centralized Electronic Ordering - All Locations) Patient Can Go To The Location Of Their Choice, 03/31/2020 18:31:22 03/31/2003/31/2020 BMP, serum or plasm a bicarbonate 27 mmol/ L (22-29 ) Not Available [facility] (Centralized Electronic Ordering - All Locations) Patient Can Go To The Location Of Their Choice, 03/31/2020 18:31:22 03/31/2003/31/2020 BMP, serum or plasm a anion gap 11 (4-17) Not Available [facility] (Centralized Electronic Ordering - All Locations) Patient Can Go To The Location Of Their Choice, 03/31/2020 18:31:22 03/31/20 20 03/31/2020 BMP, serum or plasm a calcium 9.6 mg/dL (8.6-1 0.5) Not Available [facility] (Centralized Electronic Ordering - All Locations) Patient Can Go To The Location Of Their Choice, 03/31/2020 18:31:22 03/31/20 20 03/31/2020 BMP, serum or plasm a est GFR non 57 mL/mi n/1.7 3_M2 Creat inine based estim ated glome rular filtr ation rate (eGFR ) is calcu lated using the Chron ic Kidne y Disea se Epide miolo gy Colla borat ion (CKD- EPI). The CKD-E PI creat inine equat ion has not been valid ated in child viv (<18 years ), pregn ant women or in some racia l or ethni c subgr oups other than Cauca sians and Afric an Ameri cans. Not Available [facility] (Centralized Electronic Ordering - All Locations) Patient Can Go To The Location Of Their Choice, 03/31/2020 18:31:22 03/31/20 20 03/31/2020 BMP, serum or plasm a est GFR 66 mL/mi n/1.7 3_M2 Creat inine based estim ated glome rular filtr ation rate (eGFR ) is calcu lated using the Chron ic Kidne y Disea se Epide miolo gy Colla borat ion (CKD- EPI). The CKD-E PI creat inine equat ion has not been valid ated in child viv (<18 years ), pregn ant women or in some racia l or ethni c subgr oups other than Cauca sians and Afric an Ameri cans. Not Available [facility] (Centralized Electronic Ordering - All Locations) Patient Can Go To The Location Of Their Choice, 03/31/2020 18:31:22 03/31/20 20 03/31/2020 lipid panel , serum cholesterol, total 180 mg/dL (<200) Not Available [facility] (Centralized Electronic Ordering - All Locations) Patient Can Go To The Location Of Their Choice, 2020 18:31:23 03/31/20 20 03/31/2020 lipid panel , serum triglyceride 132 mg/dL (<150) Not Available [facility] (Centralized [facility] Ordering - All Locations) Patient Can Go To The Location Of Their Choice, [id number] 03/31/2020 18:31:23 03/31/20 20 03/31/2020 lipid panel , serum HDL chol 42 mg/dL (>39) Not Available [facility] (Centralized Electronic Ordering - All Locations) Patient Can Go To The Location Of Their Choice, [id number] 03/31/2020 18:31:23 03/31/20 20 03/31/2020 lipid panel , serum LDL cholesterol, calculated 112 mg/dL (0-130 ) Not Available [facility] (Centralized Electronic Ordering - All Locations) Patient Can Go To The Location Of Their Choice, [id number] 03/31/2020 18:31:23 03/31/2003/31/2020 lipid panel , serum non HDL cholesterol (calc) 138 mg/dL (<160) Not Available [facility] (Centralized Electronic Ordering - All Locations) Patient Can Go To The Location Of Their Choice, [id number] 03/31/2020 18:31:23 03/31/2003/31/2020 HbA1c (hemo globi n A1c), blood hemoglobin A1C 5.2 % (4.0-5 .6) MONIT ORING : In known diabe tic patie nts, hemog lobin A1c targe ts shoul d be discu ssed with healt h care provi maikel. DIAGN OSTIC USE: The Ameri can Diabe mee Assoc iatio n (ADA) and the World Healt h Organ izati on (WHO) recom mend the use of HbA1c to diagn ose diabe mee using a thres hold of 6.5%. Patie nts who have an HbA1c betwe en 5.7% and 6.4% are consi dered at incre ased risk for devel oping diabe mee in the futur e. CAUTI ON: False ly low HbA1c resul ts may be obser jessica in patie nts with hemol ytic anemi a, homoz ygous forms of abnor mal hemog lobin (e.g. SS, CC, SC), pregn ab, recen t blood loss or hemog lobin F great er than 7%. Fruct osami ne may be used as an alter ignacio test in these cases . REFER ENCE: ADA: Stand ards of Medic al Care in Diabe mee 2019, The Journ al of Clini alen and Appli ed Resea [facility] and Educa tion Volum e 43, Suppl ement 1 Not Available [facility] (Centralized Electronic Ordering - All Locations) Patient Can Go To The Location Of Their Choice, [id number] 03/31/2020 19:39:19 07/25/1907/24/2020 BMP, serum or plasm a sodium 145 Not Available [facility] (Medical Records) [address] [place], [address], 07/24/2020 11:10:44 07/25/19 21 07/24/2020 BMP, serum or plasm a potassium 4.0 Not Available [facility] (Medical Records) [address] [place], [address], 07/24/2020 11:10:44 07/25/19 21 07/24/2020 BMP, serum or plasm a BUN 17 Not Available [facility] (Medical Records) [address] [place], [address], 07/24/2020 11:10:44 07/25/19 21 07/24/2020 BMP, serum or plasm a creatinine 1.63 Not Available [facility] (Medical Records) [address] [place], [address], 07/24/2020 11:10:44 07/25/19 21 07/24/2020 BMP, serum or plasm a glucose 93 Not Available [facility] (Medical Records) [address] [place], [address], 07/24/2020 11:10:44 08/25/19 21 08/24/2020 BMP, serum or plasm a glucose 94 mg/dL (70-99 ) Not Available [facility] (Centralized Electronic Ordering - All Locations) Patient Can Go To The Location Of Their Choice, [id number] 08/24/2020 16:41:12 08/25/1908/24/2020 BMP, serum or plasm a BUN 14 mg/dL (6-20) Not Available [facility] (Centralized Electronic Ordering - All Locations) Patient Can Go To The Location Of Their Choice, 08/24/2020 16:41:12 08/25/1908/24/2020 BMP, serum or plasm a creatinine 1.2 mg/dL (0.7-1 .2) Not Available [facility] (Centralized Electronic Ordering - All Locations) Patient Can Go To The Location Of Their Choice, 08/24/2020 16:41:12 08/25/1908/24/2020 BMP, serum or plasm a sodium 143 mmol/ L (133-1 45) Not Available [facility] (Centralized Electronic Ordering - All Locations) Patient Can Go To The Location Of Their Choice, 08/24/2020 16:41:12 08/25/1908/24/2020 BMP, serum or plasm a potassium 4.2 mmol/ L (3.6-5 .2) Not Available [facility] (Centralized Electronic Ordering - All Locations) Patient Can Go To The Location Of Their Choice, 08/24/2020 16:41:12 08/25/1908/24/2020 BMP, serum or plasm a chloride 105 mmol/ L (98-10 7) Not Available [facility] (Centralized Electronic Ordering - All Locations) Patient Can Go To The Location Of Their Choice, 08/24/2020 16:41:12 08/25/1908/24/2020 BMP, serum or plasm a bicarbonate 24 mmol/ L (22-29 ) Not Available [facility] (Centralized Electronic Ordering - All Locations) Patient Can Go To The Location Of Their Choice, 08/24/2020 16:41:12 08/25/1908/24/2020 BMP, serum or plasm a anion gap 14 (4-17) Not Available [facility] (Centralized Electronic Ordering - All Locations) Patient Can Go To The Location Of Their Choice, 08/24/2020 16:41:12 08/25/1908/24/2020 BMP, serum or plasm a calcium 9.5 mg/dL (8.6-1 0.5) Not Available [facility] (Centralized Electronic Ordering - All Locations) Patient Can Go To The Location Of Their Choice, 08/24/2020 16:41:12 08/25/1908/24/2020 BMP, serum or plasm a est GFR non 74 mL/mi n/1.7 3_M2 Creat inine based estim ated glome rular filtr ation rate (eGFR ) is calcu lated using the Chron ic Kidne y Disea se Epide miolo gy Colla borat ion (CKD- EPI). The CKD-E PI creat inine equat ion has not been valid ated in child viv (<18 years ), pregn ant women or in some racia l or ethni c subgr oups other than Cauca sians and Afric an Ameri cans. Not Available [facility] (Centralized Electronic Ordering - All Locations) Patient Can Go To The Location Of Their Choice, 08/24/2020 16:41:12 08/25/1908/24/2020 BMP, serum or plasm a est GFR 85 mL/mi n/1.7 3_M2 Creat inine based estim ated glome rular filtr ation rate (eGFR ) is calcu lated using the Chron ic Kidne y Disea se Epide miolo gy Colla borat ion (CKD- EPI). The CKD-E PI creat inine equat ion has not been valid ated in child viv (<18 years ), pregn ant women or in some racia l or ethni c subgr oups other than Cauca sians and Afric an Ameri cans. Not Available [facility] (Centralized Electronic Ordering - All Locations) Patient Can Go To The Location Of Their Choice, 08/24/2020 16:41:12 02/21/20 21 02/20/2021 COMPL ETE BLOOD COUNT WBC 5.7 K/mm3 (4.0-1 1.0) Not Available [facility] (Centralized Electronic Ordering - All Locations) Patient Can Go To The Location Of Their Choice, 02/20/2021 18:03:42 02/21/20 21 02/20/2021 COMPL ETE BLOOD COUNT RBC 4.77 M/mm3 (4.70- 6.10) Not Available [facility] (Centralized Electronic Ordering - All Locations) Patient Can Go To The Location Of Their Choice, 02/20/2021 18:03:42 02/21/2002/20/2021 COMPL ETE BLOOD COUNT HGB 14.5 gm/dL (13.7- 17.1) Not Available [facility] (Centralized Electronic Ordering - All Locations) Patient Can Go To The Location Of Their Choice, 02/20/2021 18:03:42 02/21/2002/20/2021 COMPL ETE BLOOD COUNT HCT 43.5 % (40.5- 50.0) Not Available [facility] (Centralized Electronic Ordering - All Locations) Patient Can Go To The Location Of Their Choice, 02/20/2021 18:03:42 02/21/2002/20/2021 COMPL ETE BLOOD COUNT MCV 91.2 fL (80.0- 94.0) Not Available [facility] (Centralized Electronic Ordering - All Locations) Patient Can Go To The Location Of Their Choice, 02/20/2021 18:03:42 02/21/2002/20/2021 COMPL ETE BLOOD COUNT MCH 30.4 pg (27.0- 34.0) Not Available [facility] (Centralized Electronic Ordering - All Locations) Patient Can Go To The Location Of Their Choice, 02/20/2021 18:03:42 02/21/2002/20/2021 COMPL ETE BLOOD COUNT MCHC 33.3 g/dL (33.0- 37.0) Not Available [facility] (Centralized Electronic Ordering - All Locations) Patient Can Go To The Location Of Their Choice, 02/20/2021 18:03:42 02/21/2002/20/2021 COMPL ETE BLOOD COUNT plt 227 K/mm3 (150-4 60) Not Available [facility] (Centralized Electronic Ordering - All Locations) Patient Can Go To The Location Of Their Choice, 02/20/2021 18:03:42 02/21/2002/20/2021 COMPL ETE BLOOD COUNT RDW-SD 43.2 fL (<47.0 ) Not Available [facility] (Centralized Electronic Ordering - All Locations) Patient Can Go To The Location Of Their Choice, 02/20/2021 18:03:42 02/21/20 21 02/20/2021 COMPL ETE BLOOD COUNT MPV 9.4 fL (9.4-1 2.4) Not Available [facility] (Centralized Electronic Ordering - All Locations) Patient Can Go To The Location Of Their Choice, [id number] 02/20/2021 18:03:42 02/21/20 21 02/20/2021 COMPL ETE BLOOD COUNT automated NRBC 0.0 #/100 _WBC' s Not Available [facility] (Centralized Electronic Ordering - All Locations) Patient Can Go To The Location Of Their Choice, [id number] 02/20/2021 18:03:42 02/21/20 21 02/20/2021 COMPL ETE BLOOD COUNT abs. NRBC 0.0 K/mm3 Not Available [facility] (Centralized Electronic Ordering - All Locations) Patient Can Go To The Location Of Their Choice, [id number] 02/20/2021 18:03:42 02/21/20 21 02/20/2021 HEMOG LOBIN A1C hemoglobin A1C 5.1 % (4.0-5 .6) MONIT ORING : In known diabe tic patie nts, hemog lobin A1c targe ts shoul d be discu ssed with healt h care provi maikel. DIAGN OSTIC USE: The Ameri can Diabe mee Assoc iatio n (ADA) and the World Healt h Organ izati on (WHO) recom mend the use of HbA1c to diagn ose diabe mee using a thres hold of 6.5%. Patie nts who have an HbA1c betwe en 5.7% and 6.4% are consi dered at incre ased risk for devel oping diabe mee in the futur e. CAUTI ON: False ly low HbA1c resul ts may be obser jessica in patie nts with hemol ytic anemi a, homoz ygous forms of abnor mal hemog lobin (e.g. SS, CC, SC), pregn ab, recen t blood loss or hemog lobin F great er than 7%. Fruct osami ne may be used as an alter ignacio test in these cases . REFER ENCE: ADA: Stand ards of Medic al Care in Diabe mee 2019, The Journ al of Clini alen and Appli ed Resea [facility] and Educa tion Volum e 43, Suppl ement 1 Not Available [facility] (Centralized Electronic Ordering - All Locations) Patient Can Go To The Location Of Their Choice, [id number] 02/20/2021 18:19:56 02/21/2002/20/[address] METAB OLIC PANL glucose 90 mg/dL (70-99 ) Not Available [facility] (Centralized Electronic Ordering - All Locations) Patient Can Go To The Location Of Their Choice, 02/20/2021 19:09:49 02/21/2002/20/[address] METAB OLIC PANL BUN 17 mg/dL (6-20) Not Available [facility] (Centralized Electronic Ordering - All Locations) Patient Can Go To The Location Of Their Choice, 02/20/2021 19:09:49 02/21/2002/20/[address] METAB OLIC PANL creatinine 1.6 mg/dL (0.7-1 .2) high Not Available [facility] (Centralized Electronic Ordering - All Locations) Patient Can Go To The Location Of Their Choice, [id number] 02/20/2021 19:09:49 02/21/2002/20/[address] METAB OLIC PANL sodium 143 mmol/ L (133-1 45) Not Available [facility] (Centralized Electronic Ordering - All Locations) Patient Can Go To The Location Of Their Choice, 02/20/2021 19:09:49 02/21/2002/20/[address] METAB OLIC PANL potassium 4.4 mmol/ L (3.6-5 .2) Not Available [facility] (Centralized Electronic Ordering - All Locations) Patient Can Go To The Location Of Their Choice, 02/20/2021 19:09:49 02/21/2002/20/[address] METAB OLIC PANL chloride 104 mmol/ L (98-10 7) Not Available [facility] (Centralized Electronic Ordering - All Locations) Patient Can Go To The Location Of Their Choice, 02/20/2021 19:09:49 02/21/20 21 02/20/[address] METAB OLIC PANL bicarbonate 26 mmol/ L (22-29 ) Not Available [facility] (Centralized Electronic Ordering - All Locations) Patient Can Go To The Location Of Their Choice, 02/20/2021 19:09:49 02/21/2002/20/[address] METAB OLIC PANL anion gap 13 (4-17) Not Available [facility] (Centralized Electronic Ordering - All Locations) Patient Can Go To The Location Of Their Choice, 02/20/2021 19:09:49 02/21/2002/20/[address] METAB OLIC PANL albumin 4.7 gm/dL (3.4-4 .8) Not Available [facility] (Centralized Electronic Ordering - All Locations) Patient Can Go To The Location Of Their Choice, 02/20/2021 19:09:49 02/21/2002/20/[address] METAB OLIC PANL calcium 10.1 mg/dL (8.6-1 0.5) Not Available [facility] (Centralized Electronic Ordering - All Locations) Patient Can Go To The Location Of Their Choice, 02/20/2021 19:09:49 02/21/2002/20/[address] METAB OLIC PANL bilirubin,to felicity 0.5 mg/dL (0-1.2 ) Not Available [facility] (Centralized Electronic Ordering - All Locations) Patient Can Go To The Location Of Their Choice, 02/20/2021 19:09:49 02/21/2002/20/[address] METAB OLIC PANL total protein 7.2 gm/dL (6.2-8 .2) Not Available [facility] (Centralized Electronic Ordering - All Locations) Patient Can Go To The Location Of Their Choice, 02/20/2021 19:09:49 02/21/2002/20/[address] METAB OLIC PANL Ag ratio 1.9 Not Available [facility] (Centralized Electronic Ordering - All Locations) Patient Can Go To The Location Of Their Choice, 02/20/2021 19:09:49 02/21/20 21 02/20/[address] METAB OLIC PANL AST 25 U/L (0-40) Not Available [facility] (Centralized Electronic Ordering - All Locations) Patient Can Go To The Location Of Their Choice, [id number] 02/20/2021 19:09:49 02/21/2002/20/[address] METAB OLIC PANL alk phos 55 U/L (40-12 9) Not Available [facility] (Centralized Electronic Ordering - All Locations) Patient Can Go To The Location Of Their Choice, [id number] 02/20/2021 19:09:49 02/21/20 21 02/20/[address] METAB OLIC PANL ALT 44 U/L (0-41) high Not Available [facility] (Centralized Electronic Ordering - All Locations) Patient Can Go To The Location Of Their Choice, [id number] 02/20/2021 19:09:49 02/21/20 21 02/20/[address] METAB OLIC PANL estimated GFR creatinine 54 mL/mi n/1.7 3_M2 Effec tive 2020, race modif iers will no longe r be inclu ded in our [facility] CKD-E PI eGFR calcu latio ns. Accor dingl y, eGFR lab repor t descr iptor s (i.e. , EST GFR NON AFRIC AN AMERI CAN, EST GFR AFRIC AN AMERI CAN) will be disco ntinu ed. Pleas e take this into accou nt when utili zing creat [facility] formu latio ns to diagn ose and manag e chron ic kidne y disea se. Creat [facility] based estim ated glome rular filtr ation rate (eGFR ) is calcu lated using the Chron ic Kidne y Disea se Epide miolo gy Colla borat ion (CKD- EPI). The CKD-E PI calcu latio n is not valid ated in child viv (<18 years ), pregn ant woman or in racia l or ethni c subgr oups. Not Available [facility] (Centralized Electronic Ordering - All Locations) Patient Can Go To The Location Of Their Choice, [id number] 02/20/2021 19:09:49 02/21/20 21 02/20/2021 LIPID PANEL cholesterol, total 194 mg/dL (<200) Not Available [facility] (Centralized Electronic Ordering - All Locations) Patient Can Go To The Location Of Their Choice, [id number] 02/20/2021 19:09:50 02/21/20 21 02/20/2021 LIPID PANEL triglyceride 119 mg/dL (<150) Not Available [facility] (Central[facility] Ordering - All Locations) Patient Can Go To The Location Of Their Choice, 02/20/2021 19:09:50 02/21/20 21 02/20/2021 LIPID PANEL HDL chol 45 mg/dL (>39) Not Available [facility] (Centralized Electronic Ordering - All Locations) Patient Can Go To The Location Of Their Choice, [id number] 02/20/2021 19:09:50 02/21/20 21 02/20/2021 LIPID PANEL LDL cholesterol, calculated 125 mg/dL (0-130 ) Not Available [facility] (Centralized Electronic Ordering - All Locations) Patient Can Go To The Location Of Their Choice, [id number] 02/20/2021 19:09:50 02/21/2002/20/2021 LIPID PANEL non HDL cholesterol (calc) 149 mg/dL (<160) Not Available [facility] (Centralized Electronic Ordering - All Locations) Patient Can Go To The Location Of Their Choice, [id number] 02/20/2021 19:09:50 02/21/2002/20/2021 URINA RY MICRO ALBUM IN micro-albumi n 191.8 mg/L (<20) high The urine micro album in test is desig erfaín to monit or renal funct ion. When scree aislinn for Bence Marie prote inuri a, urine elect ropho resis is recom gilma d. Not Available [facility] (Centralized Electronic Ordering - All Locations) Patient Can Go To The Location Of Their Choice, 02/20/2021 19:18:28 02/21/2002/20/2021 URINA RY MICRO ALBUM IN malb/creat ratio 103.3 mg/gm (0-20) high Not Available [facility] (Centralized Electronic Ordering - All Locations) Patient Can Go To The Location Of Their Choice, 02/20/2021 19:18:28 02/21/20 21 02/20/2021 URINA RY MICRO ALBUM IN urine creat for micro albumin 185.7 mg/dL Not Available [facility] (Centralized Electronic Ordering - All Locations) Patient Can Go To The Location Of Their Choice, 02/20/2021 19:18:28 02/21/20 21 02/21/2021 ANTI- HEPAT ITIS C anti-hepatit is C (neg) normal NEGAT CT Refer ence range : Negat ct This test was perfo rmed on the Abbot t Archi tect immun oassa y syste m. Not Available [facility] (Centralized Electronic Ordering - All Locations) Patient Can Go To The Location Of Their Choice, 02/21/2021 14:56:17 08/13/19 22 08/12/2021 URINA RY MICRO ALBUM IN micro-albumi n 102.8 mg/L (<20) high The urine micro album in test is desig efraín to monit or renal funct ion. When scree aislinn for Bence Marie prote inuri a, urine elect ropho resis is recom gilma [place]. Not Available [facility] (Centralized Electronic Ordering - All Locations) Patient Can Go To The Location Of Their Choice, 08/12/2021 23:12:47 08/13/1908/12/2021 URINA RY MICRO ALBUM IN malb/creat ratio 91.7 mg/gm (0-20) high Not Available [facility] (Centralized Electronic Ordering - All Locations) Patient Can Go To The Location Of Their Choice, 08/12/2021 23:12:47 08/13/19 22 08/12/2021 URINA RY MICRO ALBUM IN urine creat for micro albumin 112.1 mg/dL Not Available [facility] (Centralized Electronic Ordering - All Locations) Patient Can Go To The Location Of Their Choice, 08/12/2021 23:12:47 08/13/19 22 08/13/2021 BASIC METAB OLIC PANEL glucose 92 mg/dL (70-99 ) Not Available [facility] (Centralized Electronic Ordering - All Locations) Patient Can Go To The Location Of Their Choice, 08/13/2021 04:26:05 08/13/19 22 08/13/2021 BASIC METAB OLIC PANEL BUN 16 mg/dL (6-20) Not Available [facility] (Centralized Electronic Ordering - All Locations) Patient Can Go To The Location Of Their Choice, 08/13/2021 04:26:05 08/13/1908/13/2021 BASIC METAB OLIC PANEL creatinine 1.4 mg/dL (0.7-1 .2) high Not Available [facility] (Centralized Electronic Ordering - All Locations) Patient Can Go To The Location Of Their Choice, 08/13/2021 04:26:05 08/13/1908/13/2021 BASIC METAB OLIC PANEL sodium 141 mmol/ L (133-1 45) Not Available [facility] (Centralized Electronic Ordering - All Locations) Patient Can Go To The Location Of Their Choice, 08/13/2021 04:26:05 08/13/1908/13/2021 BASIC METAB OLIC PANEL potassium 4.3 mmol/ L (3.6-5 .2) Not Available [facility] (Centralized Electronic Ordering - All Locations) Patient Can Go To The Location Of Their Choice, 08/13/2021 04:26:05 08/13/1908/13/2021 BASIC METAB OLIC PANEL chloride 106 mmol/ L (98-10 7) Not Available [facility] (Centralized Electronic Ordering - All Locations) Patient Can Go To The Location Of Their Choice, 08/13/2021 04:26:08/13/1908/13/2021 BASIC METAB OLIC PANEL bicarbonate 25 mmol/ L (22-29 ) Not Available [facility] (Centralized Electronic Ordering - All Locations) Patient Can Go To The Location Of Their Choice, 08/13/2021 04:26:05 08/13/1908/13/2021 BASIC METAB OLIC PANEL anion gap 10 (4-17) Not Available [facility] (Centralized Electronic Ordering - All Locations) Patient Can Go To The Location Of Their Choice, 08/13/2021 04:26:05 08/13/1908/13/2021 BASIC METAB OLIC PANEL calcium 9.6 mg/dL (8.6-1 0.5) Not Available [facility] (Centralized Electronic Ordering - All Locations) Patient Can Go To The Location Of Their Choice, 08/13/2021 04:26:05 08/13/1908/13/2021 BASIC METAB OLIC PANEL estimated GFR creatinine 66 mL/mi n/1.7 3_M2 Creat inine based estim ated glome rular filtr ation (eGFR ) in adult s is calcu lated using the Natio nal Kidne y Found ation recom gilma d 2020 CKD-E PI equat ion. Estim ates GFR from serum creat inine , age and sex. Not Available [facility] (Centralized Electronic Ordering - All Locations) Patient Can Go To The Location Of Their Choice, [id number] 08/13/2021 04:26:05 06/07/19 22 05/27/2021 sleep study , diagn ostic (PROC ) No observ ation record ed. [facility] [address], [address], 06/07/2021 10:05:41 06/07/19 22 05/27/2021 home sleep testi ng (PROC ) No observ ation record ed. [facility] [address], [address], 06/07/2021 09:43:27 Result Notes None recorded. Problems Name Problem SNOMED Code Status Onset Date Resolution Date Notes Provider Name and Address Organization Details Recorded Time Bipolar I disorder 691736134 Active most recent episode manic severe with psychosi s Deja Reyes [facility] deepa, [facility] 1 09:30:11 Neck pain 85411975 Completed 08/24/2020 Missy Melgar RN null, [facility] 1 14:16:02 [facility] hyperten morteza 80700642 Active Not Available [facility] 0 15:31:33 Hyperlip idemia 32743439 Active Not Available [facility] 0 15:31:33 Lipoma 04417000 Completed 08/24/2020 Missy Melgar RN null, [facility] 14:15:54 Obesity 857584641 Completed 11/22/2018 Aquiles Salgado MD [address] [address], [place], [address] , [facility] 9 13:22:43 Hypersom josie 40674255 Completed 08/24/2020 Missy Melgar RN null, [facility] 1 14:15:49 Acute pharyngi tis 430976985 Completed 01/12/2020 Meche machuca MA null, [facility] 0 13:05:38 Exposure to SARS-CoV -2 Completed 09/21/2020 Removal Reason: Problem added by user pbonilla 1 from the COVID-19 watch flag Shannan Grove null, [facility] 1 09:03:36 Exposure to organism Completed 200711/08/2013 RESOLVED DATE: 11/06/19 08; RECORDED 11/06/19 08 7:13AM BY AQUILES SALGADO MD, ANNOTATI ON/ARNALDO Lazar, [place] [address] [address], [place], [address] , [facility] 6 15:24:20 General examinat ion of patient Completed 200711/08/2013 RESOLVED DATE: 11/06/19 08; RECORDED 11/06/19 08 7:13AM BY AQUILES SALGADO MD, ANNOTATI ON/ARNALDO Lazar, [facility] [address] [address], [place], [address] , [facility] 6 15:24:20 Infectiv e hepatiti s immuniza tion Completed 200711/08/2013 RESOLVED DATE: 11/06/19 08; RECORDED 11/06/19 08 7:12AM BY AQUILES SALGADO MD, ANNOTATI ON/ARNALDO Lazar [facility] [address] [address], [place], [address] , [facility] 6 15:24:20 Exposure to organism Completed 200711/28/2013 RESOLVED DATE: 11/06/19 08; RECORDED 11/06/19 08 7:13AM BY AQUILES SALGADO MD, ANNOTATI ON/ADDEN DUM Alice Lazar, [facility] [address], [place], [address] , [facility] 6 15:24:20 General examinat ion of patient Completed 200711/28/2013 RESOLVED DATE: 11/06/19 08; RECORDED 11/06/19 08 7:13AM BY AQUILES SALGADO MD, ANNOTATI ON/ADDEN DUM Alice Lazar, [facility] [address], [place], [address] , [facility] 6 15:24:20 Infectiv e hepatiti s immuniza tion Completed 200711/28/2013 RESOLVED DATE: 11/06/19 08; RECORDED 11/06/19 08 7:12AM BY AQUILES SALGADO MD, ANNOTATI ON/ADDEN DUM Alice Lazar, [facility] [address], [place], [address] , [facility] 6 15:24:20 Neurolep tic malignan t syndrome 79562937 Completed 200911/08/2013 RECORDED 06/08/19 10 2:03PM BY UMM OLIVAREZ ON/ADDEN DUM Alice Lazar, [facility] [address], [place], [address] , [facility] 6 15:24:20 Neurolep tic malignan t syndrome 57309401 Completed 200911/28/2013 RECORDED 06/08/19 10 2:03PM BY UMM OLIVAREZ ON/ADDEN DUM Ailce Lazar, [facility] [address], [place], [address] , [facility] 6 15:24:20 Malaise and fatigue 511271913 Completed 201111/08/2013 RECORDED 02/11/20 12 2:37PM BY MECHE ROTHMAN MA, ANNOTATI ON/ADDEN RENARD Lazar, [facility] [address] [facility] [address], [place], [address] , [facility] 6 15:24:20 Localize d superfic ial swelling of skin 902565689 Completed 201111/08/2013 RECORDED 02/11/20 12 2:37PM BY MECHE ROTHMAN MA, ANNOTATI ON/ADDEN RENARD Lazar, [facility] [address] [facility] [address], [place], [address] , [facility] 6 15:24:20 Malaise and fatigue 661600541 Completed 201111/28/2013 RECORDED 02/11/20 12 2:37PM BY MECHE ROTHMAN MA, ANNOTATI ON/ADDEN RENARD Lazar, [facility] [address] [facility] [address], [place], [address] , [facility] 6 15:24:20 Localize d superfic ial swelling of skin 971615515 Completed 201111/28/2013 RECORDED 02/11/20 12 2:37PM BY MECHE ROTHMAN MA, ANNOTATI ON/ADDEN DUM lAice Lazar, [facility] [address] [facility] [address], [place], [address] , [facility] 6 15:24:20 Active or passive immuniza tion Completed 201910/14/2019 + titers except for rubella Shannan Perfecto null, [facility] 0 15:36:42 Chronic kidney disease stage 2 377228980 Completed 202002/24/2021 Humberto Howard PA-C [address], [place], [address] , [facility] 1 17:45:53 Dry skin dermatit is 079250789 Active 2020 Humberto Howard PA-C [address] [facility] [address], [place], [address] , [facility] 1 11:00:56 Impaired fasting glycemia 222355201 Active 2020 Humberto Howard PA-C [address], [place], [address] , [facility] 1 11:01:00 Plantar wart of left foot 07760462233 366373 Active 2020 Humberto Howard PA-C [address] [facility] [address], [place], [address] , [facility] 1 11:07:37 Bipolar disorder 64025401 Active 2020 Missy Melgar RN [facility], [facility] 1 10:18:44 Chronic kidney disease stage 3A 727019032 Active 2020 Humberto Howard PA-C [address] [facility] [address], [place], [address] , [facility] 1 17:45:43 Microalb uminuria 664458603 Active 2020 Humberto Howard PA-C [address] [facility] [address], [place], [address] , [facility] 1 17:45:46 Problem Notes None recorded. Procedures Surgical History Date Name Laterality Status Provider Name and Address Organization Details Recorded Time 9 Vasectomy completed Tamela Verdin MA [facility] 11/26/2020 10:12:30 Hernia Repair completed Meche machado MA [facility] 01/04/2016 15:28:48 Imaging Results None recorded. Procedure Notes None recorded. Medical Equipment None Reported. Allergies Allergen ID Allergen Name Allergen Category Reaction Reaction Severity Criticality Documentation Date Start Date Code Code System Note Provider Name and Address Organization Details Recorded Time 8347 Haldol medicatio n Not available Not available Not available 11/01/2013 13350 9 RxNorm Alice Lazar, [facility] [address] [facility] [address], [place], [address], [facility] 6 15:26:02 8348 thioridaz ine hydrochlo ride medicatio n Not available Not available Not available 11/01/2013 06815 5 RxNorm Alice Lazar, [facility] [address] [address], [place], [address], [facility] 6 15:26:02 8349 chlorprom azine hydrochlo ride medicatio n Not available Not available Not available 11/01/2013 35710 8 RxNorm Alice TysonJany Romanserenityavinash, [facility] [address] [facility] [address], [place], [address], [facility] 6 15:26:02 Medications Name Sig Start Date Stop Date Status Note LastModified by Organization Details LastModified Time amoxicill in 500 mg capsule 05/05 completed Not Available Not Available Not Available Toprol XL 100 mg tablet,ex tended release QHS / HS 06/09 completed RECORDED 06/09/19 09 4:37PM BY AQUILES SALGADO MD, OFFICE VISIT; Not Available Not Available Not Available trazodone 50 mg tablet Take 1 tablet every day by oral route for 10 days. 09/21 completed Not Available Not Available Not Available ibuprofen 800 mg tablet 11/22 completed Not Available Not Available Not Available bisoprolo l 10 mg-hydroc hlorothia zide 6.25 mg tablet TAKE 1 TABLET BY MOUTH EVERY DAY 2022 active Not Available Not Available Not Avai lable clonazepa m 0.5 mg tablet Take 1 tablet twice a day by oral route for 30 days. 09/21 completed Not Available Not Available Not Available olanzapin e 2.5 mg tablet QHS / HS 08/31 completed RECORDED 09/01/19 09 9:36AM BY [place] FREEMAN, OFFICE VISIT; Not Available Not Available Not Available triamcino lone acetonide 0.1 % topical cream Apply 1 applicat ion every day by topical route for 25 days. active Not Available Not Available No t Available amlodipin e 10 mg tablet TAKE 1 TABLET BY MOUTH EVERY DAY active Not Available Not Available No t Available divalproe x ER 500 mg tablet,ex tended release 24 hr QHS / HS 08/31 completed RECORDED 09/01/19 09 9:36AM BY [place] FREEMAN, OFFICE VISIT; Not Available Not Available Not Available ketoconaz ole 2 % topical cream Apply 1 applicat ion twice a day by topical route for 15 days. active Not Available Not Available No t Available amoxicill in 875 mg-potass ium clavulana te 125 mg tablet TAKE 1 TABLET BY MOUTH EVERY 12 HOURS FOR 7 DAYS 08/24 completed Not Available Not Available Not Available aripipraz ole 20 mg tablet TAKE 1 TABLET BY MOUTH AT BEDTIME 08/24 completed Not Available Not Available Not Available aripipraz ole 30 mg tablet Take 1 tablet every day by oral route for 30 days. active Not Available Not Available No t Available blood pressure monitor DAILY MONITORI NG OF BP FOR HTN 04/11 completed RECORDED 01/14/20 12 10:39AM BY EVELYNE VILLELA I, MEDICATI ON AUTO-SHAQUILLE CTIVATIO N; Not Available Not Available Not Available M-M-R II (PF) 1,000-12, 500 TCID50/0. 5 mL subcutane ous solution ADM 0.5ML SC UTD 01/11 completed Not Available Not Available Not Available Austedo 6 mg tablet Take 1 tablet every day by oral route for 30 days. 11/26 completed Not Available Not Available Not Available Fluzone Quad (PF) 60 mcg (15 mcg x 4)/0.5 mL IM syringe ADM 0.5ML IM UTD 03/26 completed Not Available Not Available Not Available Vitals Date Recorded Body height Body mass index (BMI) Body weight Body temperature Oxygen saturation Oxygen saturation in Arterial blood by Pulse oximetry Heart rate Systolic And Diastolic Provider Name and Address Organization Details Last Updated DateTime 1 187.96 cm 28 kg/m2 41474.1 4 g 98.42 [degF] 99 % 99 % 104 /min 115/77 mm[Hg] Tamela Verdin MA [facility] 1 10:15:10 Date Recorded Body height Body mass index (BMI) Body weight Heart rate Oxygen saturation Oxygen saturation in Arterial blood by Pulse oximetry Body temperature Systolic And Diastolic Provider Name and Address Organization Details Last Updated DateTime 1 187.96 cm 27.8 kg/m2 38665.7 5 g 76 /min 98 % 98 % 98.06 [degF] 126/69 mm[Hg] Beti Hankins MA [facility] 1 09:19:43 Date Recorded Body height Body mass index (BMI) Body weight Oxygen saturation Oxygen saturation in Arterial blood by Pulse oximetry Heart rate Body temperature Systolic And Diastolic Provider Name and Address Organization Details Last Updated DateTime 1 187.96 cm 29.8 kg/m2 860036. 43 g 98 % 98 % 64 /min 98.42 [degF] 113/70 mm[Hg] Tamela Verdin MA [facility] 1 10:18:42 Date Recorded Systolic And Diastolic Provider Name and Address Organization Details Last Updated DateTime 03/26/2020 125/69 mm[Hg] Princess Eleni [facility] 03/26/2020 11:43:32 Social History Question Answer Notes LastModified by Organizat ion Details LastModified Time Tobacco Smoking Status Never Smoker Bridget arenas [facility] 12/21/2013 11:24:44 Do You Have An Advance Directive? Yes Information not available 11/26/2020 Is Blood Transfusion Acceptable In An Emergency? Yes Information not available 01/04/2016 What Is Your Level Of Caffeine Consumption? Occasional Information not available 01/04/2016 How Much Tobacco Do You Chew? None Information not available 01/04/2016 What Type Of Diet Are You Following? REGULAR Information not available 01/04/2016 Which Illicit Or Recreational Drugs Have You Used? None Information not available 01/04/2016 Live Alone Or With Others? With Others (Monica Fernandez) Information not available 11/26/2020 Do You Take Precautions To Prevent Distracted Driving? Yes Information not available 01/04/2016 How Often Do You Need To Have Someone Help You When You Read Instructions, Pamphlets, Or Other Written Material From Your Doctor Or Pharmacy? Never Information not available 01/04/2016 Have You Served In The ? No Information not available 01/04/2016 Have You Or Anyone In Your Household Had Any Of The Following Symptoms In The Last 14 Days: Sore Throat, Cough, Chills, Body Aches For Unknown Reasons, Shortness Of Breath For Unknown Reasons, Loss Of Smell, Loss Of Taste, Fever At Or Greater Than 100 Degrees Fahrenheit? No Information not available 01/12/2020 Are You Or Anyone In Your Household A Health Care Provider Or Emergency Responder? No Information not available 01/12/2020 To The Best Of Your Knowledge Have You Been In Close Proximity To Any Individual Who Tested Positive For COVID-19? No Information not available 01/12/2020 *[facility] ONLY* Are You Presently Prescribed Opioid Medication By PCP Or Specialist? If YES -Provider Assess The Benefit For Other, Non-opioid Pain Therapies Instead, Even If The Patient Does Not Have OUD But Is Possibly At Risk. No Information not available 11/26/2020 Have You Recently Traveled To A COVID-19 High Risk Area Or Gathering In The Last 10 Days? No Information not available 08/24/2020 What Was The Date Of Your Most Recent Tobacco Screening? 01/12/2020 Information not available 11/26/2020 How Many Children Do You Have? 0 Information not available 11/26/2020 Do You Use Protection During Sex? No Information not available 01/04/2016 Do You Use Your Seat Belt Or Car Seat Routinely? Yes Information not available 11/26/2020 Seat Belts Used Routinely Yes Information not available 11/26/2020 Are You Sexually Active? Yes Information not available 01/04/2016 Smoke Alarm In Home Yes Information not available 11/26/2020 Do You Have Smoke And Carbon Monoxide Detectors In Your Home? Yes Information not available 11/26/2020 At What Age Did You Start Smoking Tobacco? 0 Information not available 01/04/2016 Are You Passively Exposed To Smoke? No Information not available 01/04/2016 How Much Tobacco Do You Smoke? No Information not available 01/04/2016 Do You Use Sunscreen Routinely? No Information not available 11/26/2020 How Many Years Have You Smoked Tobacco? 0 Information not available 01/04/2016 Sex: Unknown Functional Status Question Answer Note LastModified by Organizat ion Details LastModified Time Do you use any illicit or recreational drugs? No Information not available 11/26/2020 Do you or have you ever used any other forms of tobacco or nicotine? No Information not available 11/26/2020 What is your level of alcohol consumption? Occasional approx 2 per month Information not available 01/04/2016 Do you or have you ever used smokeless tobacco? Never used smokeless tobacco Information not available 11/22/2018 Are you currently employed? No Information not available 11/26/2020 Are you able to walk independently without assistance or assistive devices? YESWOREST Information not available 11/26/2020 Are you able to care for yourself independently? 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 Never used electronic cigarettes Information not available 11/26/2020 What is your exercise level? Moderate daily; walking and exercise video Information not available 01/04/2016 Mental Status None recorded. Family History Relationship Description Onset Age of this Age Resolved Age Notes LastModified by Organization Details LastModified Time Father No current problems or disability abolcun Not available 11/26 10:12:02 Father Heart failure abolcun Not available 2020 10:12:02 Father Heart disease abolcun Not available 2020 10:12:02 Father Allergy abolcun Not available 0 11/26/2020 10:12:02 Mother No current problems or disability abolcun Not available 11/26 10:12:02 Unspecified Relation Kidney disease abolcun Not available 2020 10:12:02 Medical History Condition Response Hypertension Y Mental Illness Y Allergies Y Immunizations Vaccine Type Date Status Note Provider Nam e and Address Organization Details Recorded Time Influenza, MDCK, quadrivalent, PF 7 completed Shannangregoria arenas [facility] 01/24/2020 11:08:04 [facility] 11:08:04 Influenza, split virus, quadrivalent, PF 0 completed Shannan arenas [facility] 01/24/2020 11:08:04 COVID-19, mRNA, LNP-S, PF, 100 mcg/0.5mL dose or 50 mcg/0.25mL dose 0 completed JEFFERSON Black [facility] 11/26/2020 10:19:17 COVID-19, mRNA, LNP-S, PF, 100 mcg/0.5mL dose or 50 mcg/0.25mL dose 1 completed JEFFERSON Black [facility] 11/26/2020 10:19:24 Tdap 6 completed Not Available [facility] 05/07/2019 02:21:45 Td (adult), 2 Lf tetanus toxoid, preservative free, adsorbed 7 completed Shannan arenas [facility] 01/24/2020 11:08:04 Meningococcal MCV4O 7 completed Shannan arenas [facility] 01/24/2020 11:08:04 Hep B, adult 7 completed [place] null, [facility] [place] 01/24/2020 11:08:04 Hep B, adult 7 completed [facility] [place] [facility], [facility] 01/24/2020 11:08:04 Hep B, adult 7 completed [place] null, [facility] 01/24/2020 11:08:04 Past Encounters Encounter ID Performer Location Encounter Start Date Encounter Closed Date Diagnosis/Indication Diagnosis SNOMED-CT Code Diagnosis ICD10 Code Diagnosis IMO Codes Diagnosis Note [id number] auto[facility]Comm erce [address] [facility] [place] [address] 07/07/2006 00:00:00 [id number] autoEComm erce [address] [facility] [place] [address] 10/28/2006 00:00:00 [id number] autoEComm erce [address] [facility] [place] [address] 07/02/2007 00:00:00 [id number] autoEComm erce [address] [facility] [place] [address] 11/05/2007 00:00:00 [id number] autoEComm erce [address] [facility] [place] [address] 03/02/2008 00:00:00 [id number] autoEComm erce [address] [facility] [place] [address] 06/09/2008 00:00:00 [id number] autoEComm erce [address] [facility] [place] [address] 08/31/2008 00:00:00 [id number] autoEComm erce [address] [facility] [place] [address] 12/05/2008 00:00:00 [id number] autoEComm erce [address] [facility] [place] [address] 03/08/2009 00:00:00 [id number] autoEComm erce [address] [facility] [place] [address] 06/08/2009 00:00:00 [id number] autoEComm erce [address] [facility] [place] [address] 09/12/2009 00:00:00 [id number] autoEComm erce [address] [facility] [place] [address] 01/15/2010 00:00:00 [id number] autoEComm erce [address] [facility] [place] [address] 02/07/2010 00:00:00 [id number] autoEComm erce [address] [facility] [place] [address] 04/16/2010 00:00:00 [id number] autoEComm erce [address] [facility] [place] [address] 12/24/2010 00:00:00 [id number] autoEComm erce [address] [facility] [place] [address] 08/09/2012 00:00:00 [id number] Aquiles Salgado MD Main Office [address] [address] [place], [place] [address] 12/21/2013 11:13:05 12/21/2013 11:53:03 Essential hypertension 68505133 Hyperlipidemia 76973923 [id number] Aquiles Salgado MD Main Office [address] [address] [place], [place] [address] 06/28/2014 12:40:54 06/28/2014 13:45:23 Essential hypertension 24436512 Hypersomnia 74816934 Acute pharyngitis 030276687 [id number] JAMES Abreu Main Office [address] [address] [place], [place] [address] 10/11/2015 15:08:25 10/11/2015 16:04:22 Essential hypertension 08766596 I10 BP checked manually x 2 with high readings, HR up in 110s, patient states he is nervous, there has been mention previously of ? white coat HTN. Will have him continue current meds, re-start bisoprolol /HCTZ and f/u in 2 months for PE and blood pressure re-check. Also recommend he have CMP done, stay well hydrated. Bipolar I disorder 80137 [address]008 [address]31[address] Gallegos, currently takes abilify 20mg daily, he states this will be decreased in the near future. [id number] Aquiles Salgado MD Main Office [address] [place] [address] 01/04/2016 15:10:08 01/04/2016 16:20:57 Adult health examination 295862659 Z00.00 Administra tion of diphtheria, pertussis, and tetanus vaccine 760382822 Z23 Bipolar I disorder 17311 6008 F31.9 Essential hypertension 33196115 I10 Body mass index 25-29 - overweight 121688783 E66.3 [id number] Libby Howard PA-C Main Office [address] [place] [address] 05/05/2017 08:43:30 05/05/2017 09:34:48 Essential hypertension 26630234 I10 Continue meds. Regular BP monitoring , encouraged regular excercise, low Na, low alen diet. Hyperlipidemia 17821639 E78.01 Continue low fat diet . Repeat fasting labs. [id number] Humberto Howard PA-C Main Office [address] [address] [place] [address] 08/18/2017 10:36:01 08/18/2017 12:04:18 Adult health examination 612488218 Z00.00 rev. labs from 1.18 Bipolar I disorder 54935 6008 F31.9 cont f/u c psych, cont meds as dir Essential hypertension 01104681 I10 stable, cont meds as dir Fatigue 65236833 R53.83 Vitamin D deficiency 347 46232 E55.9 Body mass index 25-29 - overweight 901625327 Z68.28 Chronic ki dney disease stage 2 191516166 N18.2 ? d/t h/o lithium & depakote, cr fairly stable [id number] Aquiles Salgado MD Main Office [address] [place] [address] 11/22/2018 12:34:56 11/22/2018 13:47:47 Essential hypertension 40781072 I10 Adult heal th examination 780839355 Z00.00 Bipolar I disorder 85795 6008 F31.9 Hyperlipidemia 18128855 E78.5 Body mass index 25-29 - overweight 868120706 E66.3 Z68.25 [id number] Barry Reaves MD [facility] [address] [facility] [address] [place] [address] 01/12/2020 08:07:56 01/13/2020 10:24:57 Essential hypertension 85615233 I10 stable, cont meds as dir, check bmp Impaired f asting glycemia 271737140 R73.01 Hyperlipidemia 55058368 E78.5 [id number] Barry Reaves MD Main Office [address] [address] 03/26/2020 10:57:23 03/26/2020 12:51:47 Counseling 046787781 Z71.9 Health advice, education or counseling done for COVID 19 Essential hypertension 72496586 I10 stable traditiona lly but elevated on today's reading at home - likely related to anxiety of covid testing/et c = cont meds as dir, cont monitor bp - call if trend persists elevated, check bmp Exposure t o viral disease 8126513850 15317 Z20.828 [id number] Yamel lim MD Main Office [address] [address] 08/24/2020 10:02:15 08/24/2020 11:25:20 Bipolar I disorder 904993273 F31.9 Pt recently [place] [facility] [place]s and will be seeing Dr Gallegos 09/05/20. He is here with father in law today and he is very up to date on Duarte's care, has a notebook and makes sure his daughter ( Duarte's ) is getting pt to take his meds, eat and sleep. 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 His reg social media job titles is trying to get him in to outpatient therapy екатерина. Dr Rodriguez is working on alternativ e med for TD as current med is not affordable , His father in law is making sure he gets the new rx. He is attending ECT treatments as planned. Call in to Dr Rodriguez to call me back with an update, pt gives verbal permission for me to speak to him and communicat e with his father in law. Short term followup will be done. Essential hypertension 76616318 I10 BP controlled at this time, no changes to meds Serum crea tinine above reference range 699580165 R79.89 pt had elevation of creatinine as an inpatient, will recheck. [id number] Yamel lim MD Main Office [address] [facility] [address] [place] [address] 09/21/2020 09:07:10 09/21/2020 09:56:07 Essential hypertension 50961322 I10 BP controlled at this time, no changes to meds, continue low salt diet Bipolar I disorder 74999 6008 F31.9 Pt with hx of recent discharge from the psychiatri c unit [place] [facility] just prior to the last visit a month ago. At that time had a lot of psychomoto r slowing. Since that visit he has had great improvemen t in his symptoms. He is taking meds, seeing psychiatri st and finished ECT treatments . He states he is ready to RTW in a few week. Feels he is a little shakey but overall doing well. Plantar wa rt of left foot [id number] 0755438 B07.0 refer to podiatry [id number] Humberto Howard PA-C Main Office [address] [facility] [address] [place] [address] 11/26/2020 09:52:30 11/26/2020 11:27:06 Adult health examination 840213823 Z00.00 Hepatitis C screening 41 6354387 Z11.59 Bipolar I disorder 83968 6008 F31.9 cont f/u c psych monthly, cont meds as dir -- pt to be transition ing to solution q month - rx'd by psych, but he doesn't do the injxn - will arrange for it here Essential hypertension 93898176 I10 bp stable, check labs Dry skin dermatitis 2600 12333 L85.3 cont cream, f/u c derm Body mass index 25-29 - overweight 498366220 E66.3 Z68.29 Impaired f asting glycemia 845204713 R73.01 Screening for cardiovascular system disease 369111653 Z13.6 Chronic ki dney disease stage 2 071287608 N18.2 ? d/t h/o lithium & depakote, cr fairly stable Plantar wa rt of left foot 2699738594 5618855 B07.0 cont med (salicylic acid), cont f/u c podiatry Snoring 63655190 R06.83 Health Concerns Section Related Observation LastModified by Organization Detai ls LastModified Time None Recorded Concern Status LastModified by Organization Details LastModified Time None Recorded Advance Directives Directive Y: Payers Insurance Date Sequence Insurance Name Policy Number Policy Lopez Covered Member ID Lopez Member ID Guarantor Name 05/21/2022 1 [facility] [id number] Duarte Fernandez [id number] Duarte Fernandez 11/26/2020 1 [place] [facility] Duarte Fernandez [id number] Duarte Fernandez 11/26/2020 1 [place] [facility] Duarte Fernandez [id number] Duarte Fernandez 05/21/2022 2 [place] [facility] Duarte Fernandez [id number] Duarte Fernandez 11/26/2020 2 [place] [facility] Duarte Fernandez [id number] Duarte Fernandez 11/26/[address] [facility] (MEDICARE - MEDICAID REPLACEMENT HMO) Duarte Fernandez [id number] Duarte Fernandez Notes Date Note Type Note Provider Name and Address Organization Details Recorded Time 01/12/2020 text/html Hypertension F/UReported by PatientHPIFor associated symptoms, patient reportsno dizziness,no lightheadedness,no chest pain,no shortness of breath,no palpitations,no edema, andno calf pain with exertion. For lifestyle, patient reportsregular exerciseandlimiting/av oiding salt. For medications, patient reportstaking medications as directed,no side effects from medication, andchecks blood pressure at home, range: (120s/70s). Humberto Howard PA-C [address] [address], [place], [address], [facility] 01/12/2020 14:11:21 03/26/2020 text/html Pt states his tested positive for the covid-virus on 03/18/20. Pt was having some symptoms he did get tested twice and both came back negative. He would like a blood test to see if he has the antibodies. No symptoms at this time. 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 Pt was an inpatient [place] [facility] [place] from [place]/18/20 to 08/17/20 under the care of Dr Rodriguez [phone]. He has a history of Bipolar 1 disorder that relapsed on joleen with psychosis and eventually catatonia. Last episode 15 yrs ago responded to medication and ECT. He was admitted and ECT and abilify started . It was thought that the patient stopped his medication as an outpatient and had some traumatic news that triggered the relapse. He hs now home with his and doing fair. He is taking his medications and attending ECT treatments 2 times a week. Today pt was only partially able to give a history and he is accompanied by his father in law who pt has allowed to fill in the history. He has been unable to fill the med for TD as it is too expensive. Dr Rodriguez is working on an alternative med for this.He has a psychiatric visit scheduled for on 09/05/[address] Gallegos at 5 pm. Pt did not recall this but his TUCKER is aware of the appt and will help Duarte with confirming and signing on for this visit. He is also working with Krystal a social media job titles from [facility] [place] and is trying to get outpatient counseling. Duarte's father in law states his daughter Monica Fernandez is Duarte's and has some learning disabilities so she is able to help him to some degree but he is involved with helping Duarte his appointments. He also drives him to ECT treatments. He states after his treamtments he is out of it for most of the day. He feels pt is safe in his home environment. Olivia Oxana arenas [facility] 08/27/2020 20:59:22 09/21/2020 text/html ROS as noted in the HPI Pt here for BP check. He was seen a month ago for hospital followup. He was accompanied by his father in law at that visit as his memory and attention were diminshes. He since has contined on meds, has seen his psychiatrist several times and has completed ECT about 2 weeks ago. He is feeling much improved, still some anxiety and some mild shaking but overall feeling back to approaching baseline. He plans to return to work on 10/03/20. 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 He feels ready to return at this time. He is eating ok, feels judgement and mentation have returned to baseline. Shakey at times but med has helped wtih this. His bloo pressure is 116/76 at home Olivia Oxana arenas [facility] 09/21/2020 13:43:19 11/26/2020 text/html Generic HPI TemplateReported by Patient here for annual pe. Humberto Howard PA-C [address] [address], [place], [address], [facility] 11/26/2020 11:16:38
--- OUTSIDE RECORDS SUMMARY | 2025-01-12 19:58 | XMS_ITS | Patient Health Record ---
Author Organization [facility] Address [address] [place] [address] Care Team Providers Care Rn Trauma Name Role Phone Olivia Daigle Primary Care Provider Ismael Giron Unavailable [phone] Allergies Allergen (clinical drug ingredient) Drug/Non Drug Allergy documented on EMR Reaction Allergy Type Onset Date Status Haldol Unknown Drug Allergy Active Thorazine Unknown Drug Allergy Active thioridazine Thioridazine Unknown Drug Allergy A ctive Reason For Referral No Information Medications Medication SIG (Take, Route, Frequency, Duration) Notes Start Date End Date Status Austedo 6 MG 1 tablet with food Orally Once a day; Duration: 30 day(s) Not-Taking Triamcinolone Acetonide 0.1 % 1 application Externally Two times a Week PRN Not-Taking Ketoconazole 2 % 1 application Externally Once a day Not-Taking ARIPiprazole 30 MG 1 tablet Orally Once a day; Duration: 30 day(s) Not-Taking Bisoprolol-hydroCHLOROthi azide 10-6.25 MG 1 tablet Orally Once a day; Duration: 30 day(s) Active amLODIPine Besylate 10 MG 1 tablet Orall y Once a day; Duration: 30 day(s) Active Abilify 20 MG 1 tablet Orally Once a day; Duration: 30 day(s) Active cloZAPine 25 MG 3 tablets Orally Onc e a day Active Immunizations Vaccine Route Administration Date Status Comme nts COVID-19 Moderna Vaccine Unknown 04/19/2020 Administere d COVID-19 Moderna Vaccine Unknown 05/17/2020 Administere d Social History Tobacco Use: Social History Observation Description Date Details (start date - stop date) Never Smoker NA - NA Tobacco Use/Smoking Question Answer Notes Are you a: nonsmoker Additional Findings: Tobacco Non-User Current no n-smoker Alcohol Screen Question Answer Notes Did you have a drink contain ing alcohol in the past year? Yes How often did you have a dri nk containing alcohol in the past year? Monthly or less (1 point) Points 1 Interpretation Negative Tobacco use other than smoking: Question Answer Notes Are you an other tobacco user? No Problems Problem Type SNOMED Code ICD Code Onset Dates Problem Status W/U Status Risk Notes Problem Acquired hammer toe of right foot (4953397449144 105) Other hammer toe(s) (acquired), right foot (M20.41) Active confirmed Problem Acquired hammer toe of left foot (7530065326716 103) Other hammer toe(s) (acquired), left foot (M20.42) Active confirmed Problem Plantar wart (79775154) Plantar wart (B07.0) Active confirmed Plan Of Treatment Pending Test Test Name Order Date [id number] Destruction, 1-14 11/26/2020 Insurance Providers Payer Name Payer Address Payer Phone Subscriber Number Group Number Insured Name Patient Relationship to Insured Coverage Start Date Coverage End Date [facility] [address] [place] [address] [id number] Florencio Fernandez Self - patient is the insured Medical (General) History Medical History History ICD Code Hypertension Bipolar disorder Warts Hyperlipidemia High blood pressure Chicken pox Surgical History Surgery Date(Month/Year) Hernia Repair Hospitalization History Reason Date(Month/Year) [facility] [place] health issues 07/20[place] [facility] [place], Mental health issues 06/2020
[2025-01-12 20:01] VITALS: BP 105/67; PULSE 88; RESP 17; TEMP 36.4; O2SAT 98
[2025-01-13 01:35] VITALS: RESP 18
--- NOTE | 2025-01-13 02:52 | PC.NURSE ---
Patient is awake, hyperverbal, hyperactive, anxious. Patient medicated per MAR. Patient requested a snack. Patient given a sandwich.
[2025-01-13 06:15] VITALS: BP 144/92; PULSE 83; RESP 18; TEMP 36.7; O2SAT 99
--- NOTE | 2025-01-13 07:24 | PC.NURSE ---
Assumed care of patient at 0645, Patient currently speaking with other patients, pt appears to be better with boundaries, a bit easier to redirect verbally today. Pt was playing paper football with another patient as well as reading a magazine. No apparent distress is noted. Continue plan of care for IPLOC
--- NOTE | 2025-01-13 07:32 | PC.NURSE ---
Per brother Boo, pt last took his Abilify injection on 12/29
--- NOTE | 2025-01-13 09:00 | PC.NURSE ---
Pt advocating for PRN medications to help self soothe
--- NOTE | 2025-01-13 09:05 | PC.NURSE ---
pt unable to sit still for EKG
--- NOTE | 2025-01-13 09:22 | PC.NURSE ---
Duarte is beginning to have trouble regulating his speech, becoming hyperverbal and tangential again
--- NOTE | 2025-01-13 09:54 | MHC.CARE ---
Patient has been accepted to [facility] for today -Located at [address] [place] [id number], ETA 12PM, Accepting Dr. Luis Felipe Maldonado. F31.60 Bipolar Disorder, current episode mixed, unspecified. Rn aware. Ambulance excelsior picker here at 1145am.
--- NOTE | 2025-01-13 11:07 | PC.NURSE ---
Pt reports to this RN, I don't want ECT, I just want the correct medicine to manage my conditions, as of right now, I am not in the right headspace
[2025-01-13 13:08] VITALS: BP 144/92; PULSE 83; RESP 18; TEMP 36.7; O2SAT 99
== END 2025-01-13 12:30 ==
PROVIDERS: Physician Assistant Medical; Emergency Provider Student in an Organized Health Care Education/Training Program
DX: F30.2 Manic episode, severe with psychotic symptoms (principal); R45.851 Suicidal ideations; R45.850 Homicidal ideations; R06.02 Shortness of breath; Z11.52 Encounter for screening for COVID-19; Z79.899 Other long term (current) drug therapy; Z51.81 Encounter for therapeutic drug level monitoring
CPT/HCPCS: 80053; 80143; 80179; 80307; 81001; 81003; 85025; 87635; 96372; 99285; J2250; J2359; S9485